=== PATIENT | male | born 1935 | race Caucasian/White ===

== ENCOUNTER 2016-03-07 19:53 | Inpatient (IN) | payer OTHER, BC ==
--- NOTE | 2016-03-07 19:59 | EDPHY ---
H & P HPI/ROS: HPI CHIEF COMPLAINT: Fatigue, chills, generalized weakness, cough HISTORY OF PRESENT ILLNESS: this patient very pleasant 81-year-old male, he lives in [place] however is visiting for the holiday season, he fluid TIA on March 01 and at that time he started developing chills. He noticed over the past 4-5 days he has had some increasing fatigue, shortness of breath, nonproductive cough, chills and fever to 100.1 at home. He endorsed 1 episode of nausea vomiting, denies diarrhea, denies chest pain, denies abdominal pain. His main complaint is fatigue, muscle aches, joint pain, shortness of breath and cough. He is concerned he may have pneumonia or influenza. Past Medical History: Denies any significant medical history Past Surgical History: cholecystectomy, right knee replacement Social History: remote history of smoking 20 years ago, denies drugs, alcohol, current tobacco products Family History: noncontributory ROS REVIEW OF SYSTEMS: A comprehensive 10 point review of systems is otherwise negative aside from elements mentioned in the history of present illness. Exam Constitutional triage nursing summary reviewed, vital signs reviewed, awake/ alert. ( tachycardia, hypoxia 89%) Eyes normal conjunctivae and sclera, EOMI, PERRLA. HENT normal inspection, atraumatic, moist mucus membranes, no epistaxis, neck supple/ no meningismus, no raccoon eyes. Respiratory clear to auscultation bilaterally, normal breath sounds, no respiratory distress, no wheezing. Cardiovascular rate normal, regular rhythm, no murmur, no edema, distal pulses normal. Gastrointestinal soft, non-tender, no rebound, no guarding, normal bowel sounds, no distension, no pulsatile mass. Genitourinary no CVA tenderness. Musculoskeletal no midline vertebral tenderness, full range of motion, no calf swelling, no tenderness of extremities, no meningismus, good pulses, neurovascularly intact. Skin pink, warm, & dry, no rash, skin atraumatic. Neurologic awake, alert and oriented x 3, AAOx3, moves all 4 extremities equally, motor intact, sensory intact, CN II-XII intact, normal cerebellar, normal vision, normal speech. Psychiatric normal mood/affect. Heme/Lymph/Immune no lymphadenopathy. Differential Diagnosis: includes but is not limited to in a particular order, URI, viral syndrome, pneumonia, influenza, dehydration, electrolyte abnormality Medical Decision Making: this patient had an IV established obtain blood work, patient will have IV fluid bolus 1 L, he will have an x-ray two view to evaluate for pneumonia. It is notice at triage she had a pulse ox room air saturation of 89%, heart rate 115. Afebrile. Re-evaluation: EKG interpretation by me on record in [employer] system. Impression Time of EKG 2126, sinus tachycardia rate of [address] elevation, ST depression, T-wave abnormalities are prolonged intervals or arrhythmia. ED x-ray chest two view: this shows a left lower lobe pneumonia infiltrate. 2234: I re-evaluated this patient is resting comfortably. he was hypoxic when he arrived here. I have ordered blood cultures. On supplemental oxygen 2 L. I have ordered him IV Rocephin 1 g, IV azithromycin. He will be admitted to the hospital for community-acquired pneumonia and hypoxia, generalized weakness. 2244: I have consulted the hospitalist service and admitted this patient to Dr. thompson. He is hemodynamically stable at this time. Blood cultures have been ordered. He has been ordered IV Rocephin and IV azithromycin for left lower lobe community-acquired pneumonia. Patient agrees for admission the hospital. Source: Patient Constitutional: Initial Vital Signs Temperature (C) 37.9 C 03/07/16 19:59 Heart Rate 115 H 03/07/16 19:59 Respiratory Rate 18 03/07/16 19:59 Blood Pressure 112/86 H 03/07/16 19:59 O2 Sat (%) 89 L 03/07/16 19:59 O2 Delivery Mode Room Air Allergies/Adverse Reactions: morphine Allergy (Verified 03/07/16 20:06) Home Medications: Medication Instructions Recorded Aspirin [Aspirin 81mg (*)] 81 mg PO HS 03/07/16 Naproxen Na-Diphenhydramin HCl 1 each PO HS 03/07/16 [Aleve Pm Caplet] Medical Decision Making - Data Points Laboratory Results: Laboratory Results 03/07/16 20:20 03/07/16 20:20 03/07/16 20:20 WBC 8.58 10^3/uL (3.80-9.50) RBC 3.90 L 10^6/uL (4.40-6.38) Hgb 12.3 L g/dL (13.7-17.5) Hct 36.7 L % (40.0-51.0) MCV 94.1 fL (81.5-99.8) MCH 31.5 pg (27.9-34.1) MCHC 33.5 g/dL (32.4-36.7) RDW 13.0 % (11.5-15.2) Plt Count 149 L 10^3/uL (150-400) MPV 9.2 fL (8.7-11.7) Neut % (Auto) 92.2 H % (39.3-74.2) Lymph % (Auto) 4.4 L % (15.0-45.0) Carson % (Auto) 1.9 L % (4.5-13.0) Eos % (Auto) 0.5 L % (0.6-7.6) Baso % (Auto) 0.5 % (0.3-1.7) Nucleat RBC Rel Count 0.0 % (0.0-0.2) Absolute Neuts (auto) 7.92 H 10^3/uL (1.70-6.50) Absolute Lymphs (auto) 0.38 L 10^3/uL (1.00-3.00) Absolute Monos (auto) 0.16 L 10^3/uL (0.30-0.80) Absolute Eos (auto) 0.04 10^3/uL (0.03-0.40) Absolute Basos (auto) 0.04 10^3/uL (0.02-0.10) Absolute Nucleated RBC 0.00 10^3/uL (0-0.01) Immature Gran % 0.5 % (0.0-1.1) Immature Gran # 0.04 10^3/uL (0.00-0.10) Sodium 138 mEq/L (134-144) Potassium 3.9 mEq/L (3.5-5.2) Chloride 105 mEq/L (97-110) Carbon Dioxide 21 L mEq/l (22-31) Anion Gap 12 mEq/L (8-16) BUN 42 H mg/dL (7-23) Creatinine 1.6 H mg/dL (0.7-1.3) Estimated GFR 42 Glucose 118 H mg/dL (70-100) Calcium 8.3 L mg/dL (8.5-10.4) Total Bilirubin 1.1 mg/dL (0.1-1.4) Conjugated Bilirubin 0.5 mg/dL (0.0-0.5) Unconjugated Bilirubin 0.6 mg/dL (0.0-1.1) AST 56 IU/L (17-59) ALT 98 H IU/L (21-72) Alkaline Phosphatase 108 IU/L (38-126) Troponin I < 0.012 ng/mL (0-0.034) NT-Pro-B Natriuret Pep 1390 H pg/mL (0-450) Total Protein 6.6 g/dL (6.3-8.2) Albumin 3.3 L g/dL (3.5-5.0) Lipase 70.0 IU/L (23-300) Influenza Typ A,B (DFA) NEGATIVE FOR FLU (NEGATIVE) Medications Given: Discontinued Medications Sodium Chloride (Ns) 1,000 mls @ 0 mls/hr IV ONCE ONE PRN Reason: As Directed Stop: 03/07/16 20:18 Last Admin: 03/07/16 20:20 Dose: 1,000 mls Sodium Chloride (Ns) 1,000 mls @ 0 mls/hr IV ONCE ONE PRN Reason: Wide Open Stop: 03/07/16 21:23 Last Admin: 03/07/16 21:32 Dose: 1,000 mls Departure - Departure Disposition: [facility] Inpatient Acute Clinical Impression: Hypoxia Pneumonia Qualifiers: Pneumonia type: due to unspecified organism Laterality: left Lung location: lower lobe of lung Qualifier Code: (J18.1) Lobar pneumonia, unspecified organism Condition: Fair Referrals: OUT OF STATE,. [Primary Care Provider] - As per Instructions
[2016-03-07] MEDS ORDERED: NS 1,000 ML IV ONE ×2 (20:17→21:22)
[2016-03-07 20:30] LABS: % IMMATURE GRANULYOCYTES 0.5 % (0.0-1.1); ABSOLUTE IMMATURE GRANULOCYTES 0.04 10^3/uL (0.00-0.10); ADD DIFF? NO; ADD MORPH? NO; ADD SCAN? NO; ATYPICAL LYMPHOCYTE FLAG 0 (0-99); FRAGMENT RBC FLAG 0 (0-99); HEMATOCRIT 36.7 % (40.0-51.0); HEMOGLOBIN 12.3 g/dL (13.7-17.5); LEFT SHIFT FLG 60 (0-99); LIPEMIA HEMOLYSIS FLAG 80 (0-99); MEAN CELL HEMOGLOBIN 31.5 pg (27.9-34.1); MEAN CELL HEMOGLOBIN CONCENTR. 33.5 g/dL (32.4-36.7); MEAN CELL VOLUME 94.1 fL (81.5-99.8); MEAN PLATELET VOLUME 9.2 fL (8.7-11.7); PLATELET CLUMPS FLAG 10 (0-99); PLATELET COUNT 149 10^3/uL (150-400)
[2016-03-07 20:51] LABS: ANION GAP 12 mEq/L (8-16); CALCIUM 8.3 mg/dL (8.5-10.4); CARBON DIOXIDE 21 mEq/l (22-31); CHLORIDE 105 mEq/L (97-110); CREATININE 1.6 mg/dL (0.7-1.3); GLOMERULAR FILTRATION RATE 42; GLUCOSE 118 mg/dL (70-100); POTASSIUM 3.9 mEq/L (3.5-5.2); SODIUM 138 mEq/L (134-144)
[2016-03-07 21:03] LABS: TROPONIN I < 0.012 ng/mL (0-0.034)
--- NOTE | 2016-03-07 21:29 | CPEKG ---
Heart Rate: 100 RR Interval: 600 P-R Interval: 156 QRSD Interval: 104 QT Interval: 344 QTC Interval: 444 P [place]: 52 QRS [place]: 57 T Wave [place]: 3 EKG Severity - OTHERWISE NORMAL ECG - EKG Impression: SINUS TACHYCARDIA Electronically Signed By: Juan Zavala 07-Mar-2016 23:33:26
[2016-03-07 21:59] LABS: ALBUMIN 3.3 g/dL (3.5-5.0); BILIRUBIN,TOTAL 1.1 mg/dL (0.1-1.4); BILIRUBIN-CONJUGATED 0.5 mg/dL (0.0-0.5); BILIRUBIN-UNCONJUGATED 0.6 mg/dL (0.0-1.1); TOTAL PROTEIN 6.6 g/dL (6.3-8.2)
[2016-03-07] MEDS ORDERED: AZITHROMYCIN IV 500 MG in D5W 250 ML IV ONE (22:34)
[2016-03-07] MEDS ORDERED: ONDANSETRON DISINTEGRATING 4 MG TAB PO PRN (23:33)
[2016-03-07] MEDS ORDERED: TEMAZEPAM 15 MG CAP PO PRN (23:33)
[2016-03-08] MEDS ORDERED: NAPROXEN SODIUM 220 MG TAB PO SCH (00:30)
[2016-03-08] MEDS: ACETAMINOPHEN 325 MG TAB PO PRN ×2 (00:38→20:20)
[2016-03-08] MEDS: NS 1,000 ML IV SCH ×2 (00:38→17:44)
[2016-03-08 00:47] LABS: COLOR YELLOW; LEUKOCYTE ESTERASE,URINE NEGATIVE (NEGATIVE); NITRITE,URINE NEGATIVE (NEGATIVE)
[2016-03-08 00:48] LABS: ANION GAP 11 mEq/L (8-16); CALCIUM 7.7 mg/dL (8.5-10.4); CARBON DIOXIDE 21 mEq/l (22-31); CHLORIDE 109 mEq/L (97-110); CREATININE 1.5 mg/dL (0.7-1.3); GLOMERULAR FILTRATION RATE 45; GLUCOSE 87 mg/dL (70-100); POTASSIUM 3.4 mEq/L (3.5-5.2); SODIUM 141 mEq/L (134-144)
[2016-03-08 00:51] LABS: BACTERIA TRACE /hpf (NONE SEEN); MUCUS TRACE /lpf (NONE-1+)
[2016-03-08] MEDS ORDERED: ENOXAPARIN 80 MG/0.8 ML SYR SC ONE (01:15)
--- NOTE | 2016-03-08 01:16 | GHP ---
[f rep st] HISTORY AND PHYSICAL DATE OF ADMISSION: 03/07/2016 CHIEF COMPLAINT: Fatigue. HISTORY OF PRESENT ILLNESS: This is a 81-year-old man who flew here from [place] 6 days ago, present s with about 6 days of fatigue. The day he got into [place], he started to feel poorly. This was as sociated with some fevers and chills. He denies any cough. He denies dysuria. No other real locali zing symptoms. In the ED, he was found to be hypoxic as well as tachycardic. He was treated for a p ossible left lower lobe pneumonia. PAST MEDICAL/SURGICAL HISTORY: Cholecystectomy. MEDICATIONS: Please see medication reconciliation. ALLERGIES: Morphine. FAMILY HISTORY: His son had blood clot. SOCIAL HISTORY: He occasionally drinks and smokes. He spends most of his time in [place]. REVIEW OF SYSTEMS: A 10-point review of systems is conducted and is negative except per HPI. PHYSICAL EXAMINATION: VITAL SIGNS: Blood pressure is 117/82. Heart rate when I am seeing him is ab out 110. Initially saturating at 89% on room air. Temperature is 37.9. GENERAL: The patient is a pleasant man who is comfortable, in no acute distress. HEENT: Shows pupils equal, round and reactiv e. Mucous membranes are moist. CARDIOVASCULAR: Regular rate and rhythm. No murmurs, rubs, or gall ops. PULMONARY: Lungs clear bilaterally. ABDOMEN: Soft, nontender, nondistended. SKIN: No rash. : Exam shows no Wesley. NEUROLOGIC: Shows him to be alert and oriented x3. He is moving all ex tremities. PSYCHIATRIC: Exam shows normal mood and affect. LABS: White count is 8.58. There is no bandemia. This are 92% neutrophils. Creatinine is 1.6, BUN is 42, ALT is 98, AST is normal. BNP is 1390. Influenza swab is negative. DATA: 1. I personally reviewed and interpreted his chest x-ray. This shows left lower lobe atelectasis ve rsus infiltrate. This is relatively minor. 2. EKG shows sinus tachycardia, S-wave in lead I, Q-wave in lead III, inverted T-wave in lead III. IMPRESSION AND PLAN: A 81-year-old man with fatigue, chills, and rigors, diagnosed with pneumonia in the emergency department. 1. Possible left lower lobe pneumonia: Not terribly impressive on chest x-ray. Symptoms not entire ly consistent with a pneumonia either. He has been empirically treated. I wonder with hypoxia, tach ycardia, recent plane flight, and family history of clot, as well as elevated BNP, could this be a cl ot? I will check a D-dimer and recheck his kidney function. Based on these, may consider CT angiogr am if D-dimer is elevated. Otherwise, for now, we will continue treatment for pneumonia. I have als o sent for urine studies, which have not been sent. 2. Acute kidney injury: Suspect that this is due to dehydration. He has received 2 L of fluid. I am rechecking now. 3. Anemia: Suspect that this is chronic, though we do not have any baseline. 4. Elevated alanine aminotransferase: We will recheck in the morning. 5. Code status: Full. 6. Venous thromboembolism risk: Moderate to high. We will empirically give him prophylactic Loveno x. /[id number]/MODL
--- NOTE | 2016-03-08 01:20 | HOSPPROG ---
Hospitalist Progress Note Assessment/Plan: labs reviewed: d-dimer 3.9, SCr 1.5 plan: - lovenox 80mg sc x 1 - continue IV hydration, hopefully SCr will fall further and obtain CTA thorax tomorrow - risks and benefits of empiric anticoagulation discussed with patient Objective: Vital Signs Temp Pulse Resp BP Pulse Ox 37.7 C 103 H 16 102/66 93 03/08/16 00:00 03/08/16 00:00 03/08/16 00:00 03/08/16 00:00 03/08/16 00:00 Laboratory Results 03/07/16 23:45 03/06/16 03/07/16 03/08/16 05:59 05:59 05:59 Intake Total 2049 Balance 2049 ICD10 Worksheet Patient Problems: Problems Problem Status Diagnosed Hypoxia Acute Pneumonia Acute
[2016-03-08] MEDS: ASPIRIN 81 MG CHEWABLE TAB PO SCH ×2 (01:36→20:13)
[2016-03-08] MEDS: diphenhydrAMINE 25 MG CAP PO SCH ×3 (01:36→20:21)
[2016-03-08 05:48] LABS: % IMMATURE GRANULYOCYTES 1.2 % (0.0-1.1); ABSOLUTE IMMATURE GRANULOCYTES 0.13 10^3/uL (0.00-0.10); ADD DIFF? NO; ADD MORPH? NO; ADD SCAN? YES; ATYPICAL LYMPHOCYTE FLAG 0 (0-99); FRAGMENT RBC FLAG 0 (0-99); HEMATOCRIT 33.1 % (40.0-51.0); HEMOGLOBIN 11.2 g/dL (13.7-17.5); LIPEMIA HEMOLYSIS FLAG 90 (0-99); MEAN CELL HEMOGLOBIN 31.2 pg (27.9-34.1); MEAN CELL HEMOGLOBIN CONCENTR. 33.8 g/dL (32.4-36.7); MEAN CELL VOLUME 92.2 fL (81.5-99.8); PLATELET CLUMPS FLAG 20 (0-99); PLATELET COUNT 118 10^3/uL (150-400); RED BLOOD CELL COUNT 3.59 10^6/uL (4.40-6.38)
[2016-03-08 05:53] LABS: LEFT SHIFT FLG 250 (0-99)
[2016-03-08 05:58] LABS: ALANINE AMINOTRANSFERASE 70 IU/L (21-72); ALBUMIN 2.5 g/dL (3.5-5.0); ALKALINE PHOSPHATASE 107 IU/L (38-126); ANION GAP 12 mEq/L (8-16); ASPARTATE AMINOTRANSFERASE 41 IU/L (17-59); BILIRUBIN,TOTAL 0.9 mg/dL (0.1-1.4); BILIRUBIN-CONJUGATED 0.6 mg/dL (0.0-0.5); BILIRUBIN-UNCONJUGATED 0.3 mg/dL (0.0-1.1); CALCIUM 7.3 mg/dL (8.5-10.4); CARBON DIOXIDE 20 mEq/l (22-31); CHLORIDE 108 mEq/L (97-110); CREATININE 1.5 mg/dL (0.7-1.3); GLOMERULAR FILTRATION RATE 45; GLUCOSE 80 mg/dL (70-100); POTASSIUM 3.7 mEq/L (3.5-5.2); SODIUM 140 mEq/L (134-144); TOTAL PROTEIN 5.1 g/dL (6.3-8.2)
[2016-03-08 06:22] LABS: SCAN POSITIVE
[2016-03-08 06:26] LABS: SCHISTOCYTES 1+
[2016-03-08 06:27] LABS: PLATELET ESTIMATE DECREASED (ADEQ)
[2016-03-08] MEDS: ENOXAPARIN 40 MG/0.4 ML SYR SC SCH (08:00)
--- NOTE | 2016-03-08 08:47 | DX ---
PA and Lateral Chest on March 07, 2016 Indication: Dyspnea. Findings: There is an early consolidation in the left lower lobe, associated with peribronchial thick ening. No effusion. The rest of the lungs are clear. Heart and mediastinum are within normal limits. Bones and soft tissues are normal. Impression: Left lower lobe pneumonia. Findings are discussed with Dr. Juan Zavala.
[2016-03-08] MEDS ORDERED: AZITHROMYCIN IV 500 MG in D5W 250 ML IV SCH (09:00)
--- NOTE | 2016-03-08 09:43 | HOSPPROG ---
Hospitalist Progress Note Assessment/Plan: 81 y/o male presenting with fatigue found to have # sepsis with gram negative bacteremia most likely source is a LLL pneumonia vs occult GI malig vs other -dc ctx and start cefepime to cover for pse -repeat blood cultures -ID consult # elevated d-dimer doubt PE given lack of chest pain/sob/and resolved tachycardia in the setting of sepsis -will dc therapeutic lmwh and defer further testing for PE # MILLA creat 1.5 today -cont fluids and monitor #Anemia without signs of GI bleeding or acute blood loss #elevated ALT (resolved) #diarrhea possibly secondary to antibiotics (acute) -cont to monitor -pt reports having a colonoscopy 3 years ago where he underwent polypectomy Subjective: overall feeling better today. no fever. no chest pain or sob. reports 2 episodes of diarrhea today which he attributes to antibiotics. Objective: Vital Signs Temp Pulse Resp BP Pulse Ox 36.8 C 92 22 H 101/58 L 96 03/08/16 08:00 03/08/16 08:00 03/08/16 08:00 03/08/16 08:00 03/08/16 08:00 Laboratory Results 03/08/16 04:44 03/08/16 04:44 03/07/16 03/08/16 03/09/16 05:59 05:59 05:59 Intake Total 3028 Output Total 200 Balance 2828 - Physical Exam Constitutional: no apparent distress, appears nourished, not in pain Cardiovascular: regular rate and rhythym, no murmur, rub, or gallop, No JVD, No tachycardia, No edema Respiratory: no respiratory distress, no rales or rhonchi, clear to auscultation , reduced air movement (bilat bases) Gastrointestinal: normoactive bowel sounds, soft, non-tender abdomen, no palpable masses, No guarding, No rebound Skin: no rashes or abrasions, no fluctuance, no induration Neurologic: AAOx3, CN II-XII Intact, No facial droop ICD10 Worksheet Patient Problems: Problems Problem Status Diagnosed Hypoxia Acute Pneumonia Acute
[2016-03-08] MEDS: CEFEPIME HCL 2 GM in D5W 100 ML IV SCH ×2 (11:41→20:13)
[2016-03-08] MEDS: CALCIUM CARBONATE 500 MG CHEWABLE TAB PO PRN (21:28)
--- NOTE | 2016-03-09 00:45 | GCON ---
[f rep st] CONSULTATION INFECTIOUS DISEASE CONSULTATION DATE OF CONSULTATION: 03/08/2016 REFERRING PHYSICIAN: Silas Low DO REASON FOR CONSULTATION: Gram-negative ayse sepsis for further evaluation and opinion. CHIEF COMPLAINT: Fevers and chills. HISTORY OF PRESENTING ILLNESS: This is a 81-year-old male with a past medical history sign ificant for cholecystitis, status post cholecystectomy, who lives mostly in [place] and [place], bu t flew here to [place] 1 week ago, Tuesday. He usually spends about 2-1/2 months here throughout the year as well. He came here last Tuesday. Just shortly after landing here, within the next 1 or 2 da , he started to have some chills, but it was very cold here, and he thought it maybe was related to that. By of this past week, he started to have shaking chills and fevers. He did have an occasional cough, but was not bringing up any phlegm and was not feeling short of breath. He came into the ED yesterday after ongoing chills. In the ED, he was found to have a temperature of 37.9. His heart rate was 115. His blood pressure was 112/86, and his respiratory rate was 18. He had blood cultures x2 sets that were drawn, and those have come back as 4/4 bottles of gram-negative rods. He had a chest x-ray done which showed perhaps an early left lower lobe pneumonia. A UA was d one which was pretty unremarkable. The patient denies any burning with burning or blood in the urine . He denies any flank pain as such. Occasionally, when he has coughed, he has had bilateral flank p ain, but he is not really coughing anymore. He denies an abdominal pain, nausea, vomiting. He curre ntly is having some diarrhea, but that just started today. It was definitely not present prior to , according to the patient. His appetite has been fine. He has denied any recent loss in weight. He has had intermittent night sweats over the last several months. Of note, his last colonoscopy was 3 years ago in [place]. He also ended up having an endoscopic ul trasound to evaluate a pancreatic nodule. He said it was biopsied and not found to be malignant. He used to have more issues with abdominal pain, but he says of late he has not really had abdominal pa in or back pain, and has been feeling well. He reports no other symptoms at present. REVIEW OF SYSTEMS: HEAD: Denies any headaches. EYES: No change in vision. ENT: No sore throat, difficulty swallowing, ear pain, or ear drainage. CARDIOVASCULAR: Denies any chest pain or rapid he artbeat. RESPIRATORY: Denies any shortness of breath or sputum production. Has had an occasional d ry cough. ABDOMEN: No nausea, vomiting, abdominal pain. Currently having some diarrhea. No back p ain. No flank pain. : No dysuria or hematuria. MUSCULOSKELETAL: Denies any joint pains or musc le aches. SKIN: Denies any rashes. ENDOCRINE: Has denied any weight loss. The rest of the 10-point review of systems is essentially negative except as above. PAST MEDICAL HISTORY: Significant for cholecystitis. PAST SURGICAL HISTORY: Significant for cholecystectomy and right knee total knee replacement. ALLERGIES: Morphine. SOCIAL HISTORY: He is a former smoker, quit 20 years ago. He drinks alcohol occasionally. He is re tired. He spends 5 months out of the year in [place], 2-1/2 months in [place], and the rest of the time in [place]. He has no pets. He has not traveled out of the country recently. FAMILY HISTORY: Significant for his son having a blood clot. MEDICATIONS: As per MAR. PHYSICAL EXAMINATION: VITAL SIGNS: Temperature current 36.6, pulse is 84, respiratory rate is 20, s aturation is 96% on room air, blood pressure is 92/57. GENERAL: He is sitting up in a chair in no a cute respiratory distress, awake, alert, and oriented x3. HEENT: Head is normocephalic, atraumatic. Pupils are equal. No conjunctival injection or petechiae noted. Oropharynx is clear. There is no posterior erythema or thrush. CARDIOVASCULAR: S1, S2, regular rate and rhythm. No murmurs appreci ated. RESPIRATORY: Mild coarse breath sounds at the left base. There is no cheri rhonchi or rales appreciated. ABDOMEN: Positive bowel sounds in all 4 quadrants. Soft, nontender, nondistended. No organomegaly appreciated. No rebound. No guarding. EXTREMITIES: No pain on palpation of the musc les or the joints. No obvious joint effusions. Right knee surgical scar noted, and well healed. No erythema or pain on palpation. SKIN: No other rashes or open wounds noted. LABS: White blood cell count is 10.9, hemoglobin 11.2, platelets are 118. Neutrophil count is 92%, segmented neutrophils 53%, bands of 34%. D-dimer 3.9. Sodium 140, potassium 3.7, chloride is 108, b icarb is 20, BUN is 33, creatinine is 1.5, AST 41, ALT 70, alkaline phos is 107, total bilirubin 0.9, albumin 2.5, lipase is 70. BNP is 1390. Troponin is less than 0.012. Urinalysis: 2+ blood, negat ricardo nitrites. Urine RBCs 1-3, urine WBCs 1-3, epithelial cells trace. Serologies: Influenza type A and B, negative. Blood cultures x2 sets, 4/4 bottles with gram-negative rods. Chest x-ray with mild early potential left lower lobe pneumonia. ASSESSMENT: 1. Gram-negative ayse sepsis with bacteremia, of unclear source. 2. Possible early left lower lobe pneumonia versus atelectasis. PLAN: Patient was admitted, started on ceftriaxone and azithromycin. Antibiotics have subsequently been changed to cefepime renally dosed. Will order followup blood cultures for a.m. Recommend CT of the abdomen and pelvis with IV contrast if creatinine improves. If creatinine does not improve much , then recommend at least a non-contrasted study to further evaluate potential sources. [facility] or [facility]. Occasionally can get a gram-negative ayse pneum onia. We are awaiting identification of the gram-negative ayse to further evaluate. Will continue wi th cefepime for now. Recheck labs in the a.m. Plan of care was discussed in detail with the patient and his family at the bedside. Care is coordinated with hospitalist team. I thank you very much for allowing this opportunity to ca re for your patient in consultation. /[id number]/MODL
[2016-03-09] MEDS: NS 1,000 ML IV SCH ×2 (01:24→10:00)
[2016-03-09 05:41] LABS: % IMMATURE GRANULYOCYTES 1.1 % (0.0-1.1); ABSOLUTE IMMATURE GRANULOCYTES 0.12 10^3/uL (0.00-0.10); ADD DIFF? NO; ADD MORPH? NO; ADD SCAN? NO; ATYPICAL LYMPHOCYTE FLAG 0 (0-99); FRAGMENT RBC FLAG 0 (0-99); HEMOGLOBIN 10.6 g/dL (13.7-17.5); LEFT SHIFT FLG 20 (0-99); LIPEMIA HEMOLYSIS FLAG 90 (0-99); MEAN CELL HEMOGLOBIN 31.5 pg (27.9-34.1); MEAN CELL HEMOGLOBIN CONCENTR. 34.2 g/dL (32.4-36.7); MEAN CELL VOLUME 92.3 fL (81.5-99.8); MEAN PLATELET VOLUME 9.9 fL (8.7-11.7); PLATELET CLUMPS FLAG 10 (0-99); PLATELET COUNT 117 10^3/uL (150-400); RED BLOOD CELL COUNT 3.36 10^6/uL (4.40-6.38); RED CELL DISTRIBUTION WIDTH 13.4 % (11.5-15.2)
[2016-03-09 06:10] LABS: ANION GAP 7 mEq/L (8-16); CALCIUM 7.5 mg/dL (8.5-10.4); CARBON DIOXIDE 21 mEq/l (22-31); CHLORIDE 113 mEq/L (97-110); CREATININE 1.4 mg/dL (0.7-1.3); GLOMERULAR FILTRATION RATE 49; GLUCOSE 84 mg/dL (70-100); POTASSIUM 3.4 mEq/L (3.5-5.2); SODIUM 141 mEq/L (134-144)
[2016-03-09] MEDS: ENOXAPARIN 40 MG/0.4 ML SYR SC SCH (10:00)
[2016-03-09] MEDS: CEFEPIME HCL 2 GM in D5W 100 ML IV SCH (10:00)
--- NOTE | 2016-03-09 10:43 | PCMIDPN ---
Assessment/Plan: Assessment/Plan: 1. GNR sepsis/bacteremia: - Unclear source. LIkely GI or related. - Creatinine slightly improved to 1.4. -Recommend Ct abd/pelvis with contrast once creatinine improves. -f/u blood cx drawn this AM--will follow -Currently on Cefepime. -Loose stools likely from antibiotics--monitor closely---if worsens consider c. diff eval. -Patient originally scheduled to return to [place] tomorrow. I discussed with him that he will need to get flight rescheduled. Subjective: Afebrile. Feeling better overall. Having loose stools past two days. denies abd pain, dysuria. Did state that noticed black spot in the toilet few weeks ago on two occasions after he urinated. He didn't think it was blood. He wasn't sure if it was clot/old blood. Objective: Vital Signs Temp Pulse Resp BP Pulse Ox 36.9 C 80 18 116/72 91 L 03/09/16 08:00 03/09/16 08:00 03/09/16 08:00 03/09/16 08:00 03/09/16 08:00 Laboratory Results 03/09/16 05:23 03/09/16 05:23 03/08/16 03/09/16 03/10/16 05:59 05:59 05:59 Intake Total 3992 Output Total 500 Balance 3492 - Physical Exam General Appearance: alert, no apparent distress Respiratory: lungs clear Cardiac/Chest: regular rate, rhythm Extremities: swelling (bilateral LE) Abdomen: normal bowel sounds, non-tender, soft, No distended Skin: other (eccymosis over left lower abdomen), No erythema ICD10 Worksheet Patient Problems: Problems Problem Status Diagnosed Hypoxia Acute Pneumonia Acute
--- NOTE | 2016-03-09 15:31 | HOSPPROG ---
Hospitalist Progress Note Assessment/Plan: 81 y/o male presenting with fatigue found to have # sepsis with ecoli bacteremia unclear source -will dc cefepime and resume ctx -I discussed the case with Dr. Meyer from [place] who agrees with above -plan for ct abd/pelvis tomorrow if creat is normalized # elevated d-dimer doubt PE given lack of chest pain/sob/and resolved tachycardia in the setting of sepsis -will dc therapeutic lmwh and defer further testing for PE # MILLA creat improving -cont fluids and monitor #Anemia without signs of GI bleeding or acute blood loss #elevated ALT (resolved) #diarrhea possibly secondary to antibiotics (acute) -cont to monitor -pt reports having a colonoscopy 3 years ago where he underwent polypectomy Subjective: overall feeling better today. no fevers or chills. no cough/chest pain/sob Objective: Vital Signs Temp Pulse Resp BP Pulse Ox 36.7 C 86 18 118/82 H 95 03/09/16 15:21 03/09/16 15:21 03/09/16 15:21 03/09/16 15:21 03/09/16 15:21 Laboratory Results 03/09/16 05:23 03/09/16 05:23 03/08/16 03/09/16 03/10/16 05:59 05:59 05:59 Intake Total 3992 Output Total 500 Balance 3492 - Physical Exam Constitutional: no apparent distress, appears nourished, not in pain Cardiovascular: regular rate and rhythym, no murmur, rub, or gallop Respiratory: no respiratory distress, no rales or rhonchi, clear to auscultation Gastrointestinal: normoactive bowel sounds, soft, non-tender abdomen, no palpable masses Neurologic: AAOx3, sensation intact bilaterally ICD10 Worksheet Patient Problems: Problems Problem Status Diagnosed Hypoxia Acute Pneumonia Acute
[2016-03-09] MEDS: ASPIRIN 81 MG CHEWABLE TAB PO SCH (21:56)
[2016-03-09] MEDS: diphenhydrAMINE 25 MG CAP PO SCH (21:56)
[2016-03-09] MEDS: CALCIUM CARBONATE 500 MG CHEWABLE TAB PO PRN (23:00)
[2016-03-10] MEDS: NS 1,000 ML IV SCH (03:03)
[2016-03-10 05:43] LABS: % IMMATURE GRANULYOCYTES 1.7 % (0.0-1.1); ABSOLUTE IMMATURE GRANULOCYTES 0.17 10^3/uL (0.00-0.10); ADD DIFF? NO; ADD MORPH? NO; ADD SCAN? NO; ATYPICAL LYMPHOCYTE FLAG 50 (0-99); FRAGMENT RBC FLAG 0 (0-99); HEMOGLOBIN 10.5 g/dL (13.7-17.5); LEFT SHIFT FLG 40 (0-99); LIPEMIA HEMOLYSIS FLAG 90 (0-99); MEAN CELL HEMOGLOBIN 31.7 pg (27.9-34.1); MEAN CELL HEMOGLOBIN CONCENTR. 33.9 g/dL (32.4-36.7); MEAN CELL VOLUME 93.7 fL (81.5-99.8); MEAN PLATELET VOLUME 10.4 fL (8.7-11.7); PLATELET CLUMPS FLAG 0 (0-99); PLATELET COUNT 143 10^3/uL (150-400); RED BLOOD CELL COUNT 3.31 10^6/uL (4.40-6.38); RED CELL DISTRIBUTION WIDTH 13.3 % (11.5-15.2)
[2016-03-10 06:19] LABS: ANION GAP 9 mEq/L (8-16); CALCIUM 7.6 mg/dL (8.5-10.4); CARBON DIOXIDE 19 mEq/l (22-31); CHLORIDE 116 mEq/L (97-110); CREATININE 1.3 mg/dL (0.7-1.3); GLOMERULAR FILTRATION RATE 53; GLUCOSE 77 mg/dL (70-100); POTASSIUM 3.6 mEq/L (3.5-5.2); SODIUM 144 mEq/L (134-144)
--- NOTE | 2016-03-10 08:26 | HOSPPROG ---
Hospitalist Progress Note Assessment/Plan: 81 y/o male presenting with fatigue. today is my 1st encounter with the patient. Chart reviewed. # sepsis with ecoli bacteremia unclear source - Initially on cefepime / now on ceftriaxone - plan for ct abd/pelvis / creatinine has improved, patient has no abdominal pain - spoke with Dr. Silverman earlier today /will hold on the CT of the abdomen and pelvis until a further evaluates # elevated d-dimer doubt PE given lack of chest pain/sob/and resolved tachycardia in the setting of sepsis # MILLA creat improving -cont fluids and monitor - creatinine is 1.3 today #Anemia without signs of GI bleeding or acute blood loss #elevated ALT (resolved) #diarrhea possibly secondary to antibiotics (acute) - this was noted by the provider yesterday, has no complaints of this # DVT prophylaxis. On low-molecular weight heparin if creatinine should increase will change to heparin subQ three times daily Subjective: Darren is feeling well/ anxious to be dc. Objective: Vital Signs Temp Pulse Resp BP Pulse Ox 36.9 C 72 14 132/67 H 94 03/10/16 08:00 03/10/16 08:00 03/10/16 08:00 03/10/16 08:00 03/10/16 08:00 Laboratory Results 03/10/16 04:34 03/10/16 04:34 03/09/16 03/10/16 03/11/16 05:59 05:59 05:59 Intake Total 3992 2576 Output Total 500 Balance 3492 2576 - Physical Exam Constitutional: no apparent distress, appears nourished, not in pain Eyes: PERRL Ears, Nose, Mouth, Throat: hearing normal Cardiovascular: regular rate and rhythym, no murmur, rub, or gallop Respiratory: no respiratory distress, no rales or rhonchi Gastrointestinal: normoactive bowel sounds, soft, non-tender abdomen Skin: warm, normal color Musculoskeletal: full muscle strength, normal joint ROM Neurologic: AAOx3 Psychiatric: interacting appropriately ICD10 Worksheet Patient Problems: Problems Problem Status Diagnosed Hypoxia Acute Pneumonia Acute
[2016-03-10] MEDS: ENOXAPARIN 40 MG/0.4 ML SYR SC SCH (09:03)
--- NOTE | 2016-03-10 16:23 | PCMIDPN ---
Assessment/Plan: Assessment: E coli bacteremia-unclear source. Obtained a right upper quadrant ultrasound to re-evaluate biliary tree given no clear source of infection. Right upper quadrant ultrasound showed dilatation of biliary tree as well as hepatic ducts. Will check an MRI or MRCP of the area to evaluate for obstruction. Continue ceftriaxone. Plan: 1. Continue empiric ceftriaxone. 2. Follow clinical course. Subjective: Patient is sitting up in his hospital room. He denies any new complaints. Feels much improved from admission. Is wanting to go home. No fevers or chills. Objective: Ceftriaxone #2 Vital Signs Temp Pulse Resp BP Pulse Ox 37.0 C 83 16 130/80 H 93 03/10/16 11:51 03/10/16 11:51 03/10/16 11:51 03/10/16 11:51 03/10/16 11:51 Laboratory Results 03/10/16 04:34 03/10/16 04:34 03/09/16 03/10/16 03/11/16 05:59 05:59 05:59 Intake Total 3992 2576 Output Total 500 Balance 3492 2576 - Physical Exam General Appearance: WD/WN, alert, no apparent distress, non-toxic Respiratory: lungs clear, normal breath sounds, No respiratory distress Cardiac/Chest: regular rate, rhythm, No tachycardia Extremities: non-tender, normal inspection Skin: normal color, warm/dry, No rash Neuro/Psych: alert, normal mood/affect, oriented x 3 ICD10 Worksheet Patient Problems: Problems Problem Status Diagnosed Hypoxia Acute Pneumonia Acute
--- NOTE | 2016-03-10 17:24 | US ---
Sonogram of the Abdomen - March 10, 2016 at 1521 hours Clinical Indications: Escherichia coli bacteremia. Evaluate for source. Findings: The visualized pancreas is unremarkable. PICC Atek duct is prominent/enlarged at 5 mm. The common bile duct is significantly enlarged at 16 mm. There is intra- and extrahepatic biliary ductal dilatation. In the distal common bile duct near the pancreatic head, there is an area of sludge versu s stone. The density has more of the appearance of sludge than stone. The portal veins are patent. He patic veins are patent. Scattered cysts are present in the liver. On the left, there is a cyst measur ing 1.0 x 0.8 x 0.95 cm. There is a second 1.4 x 1.0 x 1.3 cm cyst. On the right, there is a 1.0 x 0. 8 x 1.0 cm cyst. The gallbladder has been removed. The right kidney measures 5.0 x 4.9 x 11.1 cm with a 1.3-cm cortex. A pelvic cyst is noted measuring 1.1 x 0.6 x 0.9 cm. Impression: Intra- and extrahepatic biliary ductal dilatation and common bile duct dilation with yazan iary sludge or stones. Consider M.R.C.P. for further evaluation. A mass is not completely excluded, n or is an obstructing stone or debris. Critical results discussed by Dr. Ted Thakur with Dr. Pete Silverman on March 10, 2016 at [address]
[2016-03-10] MEDS: CALCIUM CARBONATE 500 MG CHEWABLE TAB PO PRN (18:03)
[2016-03-10] MEDS: PANTOPRAZOLE SODIUM 40 MG TAB PO SCH ×2 (18:07→22:10)
[2016-03-10] MEDS: diphenhydrAMINE 25 MG CAP PO SCH (22:10)
[2016-03-11 06:04] LABS: % IMMATURE GRANULYOCYTES 2.9 % (0.0-1.1); ABSOLUTE IMMATURE GRANULOCYTES 0.24 10^3/uL (0.00-0.10); ADD DIFF? NO; ADD MORPH? NO; ADD SCAN? NO; ATYPICAL LYMPHOCYTE FLAG 80 (0-99); FRAGMENT RBC FLAG 0 (0-99); HEMOGLOBIN 9.7 g/dL (13.7-17.5); LEFT SHIFT FLG 30 (0-99); LIPEMIA HEMOLYSIS FLAG 80 (0-99); MEAN CELL HEMOGLOBIN 31.2 pg (27.9-34.1); MEAN CELL HEMOGLOBIN CONCENTR. 33.4 g/dL (32.4-36.7); MEAN CELL VOLUME 93.2 fL (81.5-99.8); MEAN PLATELET VOLUME 10.3 fL (8.7-11.7); PLATELET CLUMPS FLAG 0 (0-99); PLATELET COUNT 159 10^3/uL (150-400); RED BLOOD CELL COUNT 3.11 10^6/uL (4.40-6.38); RED CELL DISTRIBUTION WIDTH 13.6 % (11.5-15.2)
[2016-03-11 06:37] LABS: ANION GAP 10 mEq/L (8-16); CALCIUM 8.1 mg/dL (8.5-10.4); CARBON DIOXIDE 20 mEq/l (22-31); CHLORIDE 116 mEq/L (97-110); CREATININE 1.2 mg/dL (0.7-1.3); GLOMERULAR FILTRATION RATE 58; GLUCOSE 80 mg/dL (70-100); POTASSIUM 3.8 mEq/L (3.5-5.2); SODIUM 146 mEq/L (134-144)
[2016-03-11] MEDS: ENOXAPARIN 40 MG/0.4 ML SYR SC SCH (09:00)
[2016-03-11] MEDS: PANTOPRAZOLE SODIUM 40 MG TAB PO SCH ×2 (10:07→22:13)
--- NOTE | 2016-03-11 11:13 | HOSPPROG ---
Hospitalist Progress Note Assessment/Plan: 81 y/o male presenting with fatigue. # sepsis with ecoli bacteremia unclear source - ceftriaxone - RUQ ultrasound shows biliry ductal dilation, CBD w biliary sludge -ordered MRI for today for further evaluation # elevated d-dimer doubt PE given lack of chest pain/sob/and resolved tachycardia in the setting of sepsis -lower bilateral extremities with swelling -will get an ultrasound to further evaluate #Lower extremity swelling -per patient this has been ongoing -drives frequently for long periods/ will get ultrasound # MILLA creat improving - creatinine is 1.2 today #Anemia without signs of GI bleeding or acute blood loss -has + heme stool -stop asa for now -Erji's PCP is in [place]/ he needs to get f/u with a colonoscopy #GERD -takes tums frequently at home, added PPI bid #elevated ALT (resolved) #diarrhea possibly secondary to antibiotics (acute) - none further Plan: Will await imaging studies/ get ultrasound and MRI of abdomen Subjective: Darren is feeling well/ anxious to be discharged, but appreciative of care in the hospital. Objective: Vital Signs Temp Pulse Resp BP Pulse Ox 37 C 94 18 110/68 91 L 03/11/16 08:00 03/11/16 08:00 03/11/16 08:00 03/11/16 08:00 03/11/16 08:00 Laboratory Results 03/11/16 05:05 03/11/16 05:05 03/10/16 03/11/16 03/12/16 05:59 05:59 05:59 Intake Total 2576 Balance 2576 - Physical Exam Constitutional: no apparent distress, appears nourished, not in pain Eyes: PERRL Ears, Nose, Mouth, Throat: hearing normal Cardiovascular: regular rate and rhythym, edema (bilateral lower extremity) Respiratory: no respiratory distress Gastrointestinal: normoactive bowel sounds Skin: warm Musculoskeletal: full muscle strength, no muscle tenderness Neurologic: AAOx3 Psychiatric: interacting appropriately, not anxious ICD10 Worksheet Patient Problems: Problems Problem Status Diagnosed Hypoxia Acute Pneumonia Acute
--- NOTE | 2016-03-11 12:55 | DX ---
Orbits, 3 views. March 11, 2016 History: Pre-MRI clearance. Findings: No retained foreign object identified over the orbits bilaterally. Paranasal sinuses are normally aerated. Impression: Patient is clear for MRI.
--- NOTE | 2016-03-11 14:58 | MR ---
MRI Abdomen Without Contrast, MR Cholangiopancreatography 1309 hours Clinical Indications: Abdominal pain. Ascending cholangitis. Abnormal ultrasound. Comparison: Ultrasound 10 March 2016. Technique: MRI is performed of the abdomen using a 3 Indira MRI system. Axial and coronal noncontrast anatomic images were obtained of the abdomen without contrast with standard imaging sequences. Heavil y T2-weighted images were obtained axially and coronally through the biliary ducts. Three-dimensiona l and multiplanar reconstructions were manipulated by the radiologist and reviewed at the computer. Findings: Several hepatic cysts are seen in the liver. The largest is in the left lobe measuring 1.9 cm. Intrahepatic biliary ductal dilatation is seen more predominant on the left than the right. Gallb ladder is absent as patient is status post cholecystectomy. Parapelvic cysts are seen in both kidneys . No evidence for pancreatic mass or edema with this limited noncontrast evaluation. Spleen is unrema rkable. No significant abdominal lymphadenopathy. M.R.C.P. images demonstrate dilatation of the common bile duct. It is more predominant in the mid asp ect up to 18 mm. There is multiple choledochal stones or debris dependent in the posterior mid common bile duct and distal common bile duct, largest measuring 10 mm. Intrahepatic biliary ductal dilatati on is more predominant on the left. Pancreatic duct is enlarged at 5 mm. Impression: Multiple choledochal stones and/or debris within the common bile duct which is dilated, a s well as intrahepatic biliary ductal dilatation. Common pancreatic duct is also enlarged. No definit e obstructing mass or evidence for pancreatitis. Status post cholecystectomy.
--- NOTE | 2016-03-11 15:58 | PCMIDPN ---
Assessment/Plan: #Davis-S E coli bacteremia MRCP suggests multiple choledochal stones within the common bile ducts. 03/09 blood cx demonstrate clearance --continue ceftriaxone, can finish Rx with PO levofloxacin at ct --consulted GI, ERCP tomorrow #Melena - passed info to GI meds ceftriaxone 1gm IV daily, 03/07, #5 Subjective: no abdominal pain eating C/o melena visiting wants to get back to winter home in [place] Objective: Vital Signs Temp Pulse Resp BP Pulse Ox 36.9 C 58 L 16 98/65 L 92 03/11/16 11:28 03/11/16 11:28 03/11/16 11:28 03/11/16 11:28 03/11/16 11:28 Laboratory Results 03/11/16 05:05 03/11/16 05:05 03/10/16 03/11/16 03/12/16 05:59 05:59 05:59 Intake Total 2576 Balance 2576 - Physical Exam General Appearance: alert, no apparent distress, apparent distress EENT: No scleral icterus Respiratory: lungs clear, No accessory muscle use, No wheezing Neck: supple Cardiac/Chest: regular rate, rhythm, No systolic murmur Extremities: pedal edema Abdomen: normal bowel sounds, non-tender, soft, distended Pelvic Exam: No amado Skin: warm/dry, No diaphoresis, No rash Neuro/Psych: alert, normal mood/affect, oriented x 3 - Line/s PIV Lines: other (L forearm), No drainage, No erythema - Time Spent With Patient Time Spent with Patient: greater than 35 minutes (coordinatin of care with Leanne Wagner and Ivan Keller) Time Spent with Patient: Greater than 35 minutes spent on this patients care, greater than 50% of time spent counseling, educating, and coordinating care regarding the above mentioned plan. ICD10 Worksheet Patient Problems: Problems Problem Status Diagnosed Hypoxia Acute Pneumonia Acute
--- NOTE | 2016-03-11 19:25 | US ---
Bilateral Lower Extremity Venous Doppler Study Clinical Indications: Bilateral lower extremity swelling. Technique: High-frequency transducer was used for compression imaging and Doppler study of the deep v eins of both legs from the upper calves to the groins. Pulsed Doppler and color Doppler were utilized , along with various maneuvers to assess flow in the deep veins. Findings: Right Leg: The deep veins of the groin, thigh, knee, and upper calf are well displayed and normally c ompressible. Doppler flow patterns are unremarkable. There is no evidence of deep venous thrombosis . Calf swelling is present. Left Leg: The deep veins of the groin, thigh, knee, and upper calf are well displayed and normally co mpressible. Doppler flow patterns are unremarkable. There is no evidence of deep venous thrombosis. Swelling is present. There is normal compression of the greater saphenous veins without superficial thrombosis. Impression: Normal bilateral venous Doppler study. No sonographic evidence to explain the patient's c fdc swelling.
--- NOTE | 2016-03-11 20:42 | SOAPPROG ---
SOAP Progress Note Assessment/Plan: Assessment: Plan: 03/11/16 20:41 GI note See dictated consult. Will keep npo after midnight. Plans for EUS/ERCP tomorrow. Objective: Vital Signs Temp Pulse Resp BP Pulse Ox 36.9 C 58 L 16 98/65 L 92 03/11/16 11:28 03/11/16 11:28 03/11/16 11:28 03/11/16 11:28 03/11/16 11:28 Laboratory Results 03/11/16 05:05 03/11/16 05:05 03/10/16 03/11/16 03/12/16 05:59 05:59 05:59 Intake Total 2576 Balance 2576 ICD10 Worksheet Patient Problems: Problems Problem Status Diagnosed Hypoxia Acute Pneumonia Acute
--- NOTE | 2016-03-11 21:39 | GCON ---
[f rep st] CONSULTATION DATE OF CONSULTATION: 03/11/2016 CONSULTING PHYSICIANS: Drs. Maegan Tejada/Vladimir Wu. REASON FOR CONSULTATION: Abnormal imaging. CHIEF COMPLAINT: Fevers and chills. HISTORY OF PRESENT ILLNESS: The patient is a 81-year-old male with a past medical history of cholecystitis with cholecystectomy, who presented to [facility] with complaints of fevers and chills. He was found to have a gram-negative ayse sepsis with E. coli bacteremia. He had a significant workup for a source, including an ultrasound which showed a dilated common bile duct. He had a subsequent MRCP which did reveal choledocholithiasis as well as a dilated pancreatic duct. When he initially came in he was found to have a temperature of 37.9, as well as being tachycardic. He did state he had had a poor appetite. He has had mild pain in the mid epigastrium. He denies any alleviating or exacerbating factors to his pain. The patient thinks that he has a history of pancreatic polyp. He believes underwent an upper scope for removal of this polyp. I am being asked by Dr. Tejada to evaluate Darren in consultation for his choledocholithiasis/abnormal imaging. PAST MEDICAL HISTORY: Cholecystitis. PAST SURGICAL HISTORY: Cholecystectomy, and right knee placement. ALLERGIES: Morphine. MEDICATIONS: Aspirin 80 mg a day, naproxen. SOCIAL HISTORY: Stopped smoking 20 years ago. No significant alcohol use. FAMILY HISTORY: Son having a blood clot. REVIEW OF SYSTEMS: A 12-point comprehensive review of systems was asked. Pertinent positives and negatives per HPI. PHYSICAL EXAM: VITAL SIGNS: Blood pressure 98/65, temperature 36.9, pulse 58, respirations 16. GENERAL: Awake, alert, oriented x3, in no distress. HEENT: Anicteric sclerae. Moist mucosa. NECK: No JVD. CARDIOVASCULAR: Regular rate and rhythm. Positive S1, S2. No murmurs or gallops appreciated. LUNGS: Clear to auscultation bilaterally. No wheezes, rales, or rhonchi. ABDOMEN: Soft, nontender, nondistended. Positive bowel sounds. No guarding. No rebound. EXTREMITIES: No clubbing, cyanosis, edema. NEUROLOGIC: 2-12 grossly intact. PSYCH: Normal affect. SKIN: No rash. No icterus LYMPH: No lymphadenopathy. DATA: Blood work: WBC 8.36, hemoglobin 9.7, hematocrit 29.0, platelets 159. Sodium 146, potassium 3.8, carbon dioxide 20, chloride 116, BUN 25, creatinine 1.5. MRCP shows a dilated common bile duct with intrahepatic biliary dilation. Common bile duct had multiple stones, with the largest measuring 10 mm. The pancreatic duct is also dilated. ASSESSMENT/PLAN: 1. Abnormal imaging-with dilated common bile duct as well as pancreatic duct. He does have choledocholithiasis which is the suspected source of his bactermia.. 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 Due to this history, as well as having a dilated pancreatic duct, we need to be concerned that he could pancreatic pathology. At this time I recommend an endoscopic ultrasound to evaluate the area, as well as an ERCP for biliary decompression. The risks, benefits, and alternatives of the procedure were discussed in great detail with the patient. Risks of infection, bleeding, perforation, pancreatitis, and sedation were discussed. All questions answered. Informed consent was obtained. Thank you very much for this consultation. /[id number]/MODL MTDD
[2016-03-11] MEDS: diphenhydrAMINE 25 MG CAP PO SCH (22:12)
[2016-03-12 05:56] LABS: ADD DIFF? YES; ADD MORPH? NO; FRAGMENT RBC FLAG 0 (0-99); LEFT SHIFT FLG 40 (0-99); PLATELET CLUMPS FLAG 0 (0-99); RED BLOOD CELL COUNT 3.09 10^6/uL (4.40-6.38)
[2016-03-12 06:00] LABS: HEMATOCRIT 29.2 % (40.0-51.0); HEMOGLOBIN 9.9 g/dL (13.7-17.5); LIPEMIA HEMOLYSIS FLAG 90 (0-99); MEAN CELL HEMOGLOBIN CONCENTR. 33.9 g/dL (32.4-36.7); MEAN CELL VOLUME 94.5 fL (81.5-99.8); MEAN PLATELET VOLUME 10.4 fL (8.7-11.7); PLATELET COUNT 180 10^3/uL (150-400)
[2016-03-12 06:06] LABS: % IMMATURE GRANULYOCYTES 4.6 % (0.0-1.1); ABSOLUTE IMMATURE GRANULOCYTES 0.42 10^3/uL (0.00-0.10); ADD SCAN? NO; ATYPICAL LYMPHOCYTE FLAG 130 (0-99)
[2016-03-12 06:10] LABS: ANION GAP 9 mEq/L (8-16); CALCIUM 8.1 mg/dL (8.5-10.4); CARBON DIOXIDE 22 mEq/l (22-31); CHLORIDE 113 mEq/L (97-110); CREATININE 1.2 mg/dL (0.7-1.3); GLOMERULAR FILTRATION RATE 58; GLUCOSE 86 mg/dL (70-100); POTASSIUM 3.8 mEq/L (3.5-5.2); SODIUM 144 mEq/L (134-144)
[2016-03-12 06:28] LABS: PLATELET ESTIMATE ADEQUATE (ADEQ)
[2016-03-12] MEDS: ENOXAPARIN 40 MG/0.4 ML SYR SC SCH (10:39)
[2016-03-12] MEDS: PANTOPRAZOLE SODIUM 40 MG TAB PO SCH ×2 (10:42→19:39)
[2016-03-12] MEDS ORDERED: INDOMETHACIN 50 MG SUPP PR ONE (13:30)
[2016-03-12] MEDS ORDERED: levOFLOXACIN 500 MG/DEXTROSE 100 ML IV ONE (13:30)
[2016-03-12] MEDS ORDERED: GLUCAGON,HUMAN RECOMBINANT 1 MG VIAL ONE (13:54)
[2016-03-12] MEDS ORDERED: IOTHALAMATE MEG (CONRAY) 50 ML VIAL IV ONE (13:54)
[2016-03-12] MEDS ORDERED: PROPOFOL/EMULSION 500 MG/50 ML BOTTLE IV ONE (13:58)
--- NOTE | 2016-03-12 14:53 | HOSPPROG ---
Hospitalist Progress Note Assessment/Plan: 81 y/o male presenting with fatigue. Under my 1st encounter with the patient, chart reviewed. Discussed with Dr. Silverman infectious Disease. # sepsis with ecoli bacteremia -ERCP today - ceftriaxone - RUQ ultrasound shows biliry ductal dilation, CBD w biliary sludge # elevated d-dimer doubt PE given lack of chest pain/sob/and resolved tachycardia in the setting of sepsis -lower bilateral extremities with swelling -will get an ultrasound to further evaluate #Lower extremity swelling -per patient this has been ongoing -drives frequently for long periods/ ultrasound negative # MILLA creat improving - creatinine is 1.2 today #Anemia without signs of GI bleeding or acute blood loss -has + heme stool -stop asa for now -Reji's PCP is in [place]/ he needs to get f/u with a colonoscopy #GERD -takes tums frequently at home, added PPI bid #elevated ALT (resolved) #diarrhea possibly secondary to antibiotics (acute) - none further Plan: ERCP today Further treatment pending Subjective: Up in the chair. Feeling better today. Waiting procedure. No pain currently. Objective: Vital Signs Temp Pulse Resp BP Pulse Ox 36.9 C 67 16 130/82 H 91 L 03/12/16 07:34 03/12/16 07:34 03/12/16 07:34 03/12/16 07:34 03/12/16 07:34 Laboratory Results 03/12/16 04:41 03/12/16 04:41 - Physical Exam Constitutional: appears nourished, not in pain, obese Eyes: PERRL, anicteric sclera, EOMI Ears, Nose, Mouth, Throat: moist mucous membranes, hearing normal, ears appear normal Cardiovascular: regular rate and rhythym, edema, No JVD Respiratory: no respiratory distress, no rales or rhonchi, reduced air movement Gastrointestinal: tenderness, distension, No ascites Skin: warm, normal color, No erythema Musculoskeletal: full muscle strength, normal joint ROM, no joint effusions Neurologic: AAOx3 Psychiatric: interacting appropriately, not anxious, not encephalopathic, thought process linear ICD10 Worksheet Patient Problems: Problems Problem Status Diagnosed Hypoxia Acute Pneumonia Acute
[2016-03-12] MEDS ORDERED: SUGAMMADEX SODIUM 200 MG/2 ML VIAL IVP ONE (15:08)
--- NOTE | 2016-03-12 16:34 | DX ---
Fluoroscopy Greater Than an Hour Clinical Indication: ERCP. Fluoroscopy Time: 262.3 seconds. Dose: 69.8 mGy. Findings: 12 spot fluoroscopic images were obtained with an endoscope in place and a balloon and wir e in the common bile duct. Debris is noted in the common bile duct. On completion imaging, there is a stent in place. Please see Dr. Keller's report for full ERCP details. Impression: Fluoroscopy provided for ERCP. Completion imaging showing plastic common bile duct stents .
--- NOTE | 2016-03-12 17:41 | GPN ---
[f rep st] PROCEDURE NOTE DATE OF PROCEDURE: 03/12/2016 PROCEDURE: Esophagogastroduodenoscopy with biopsy, endoscopic ultrasound. INDICATION: The patient is a 81-year-old male, who presents with complaints of melena as well as abnormal imaging. On a recent CT scan, he had a dilated common bile duct with choledocholithiasis as well as a dilated pancreatic duct. He does have a prior history of "pancreatic polyp," where he underwent an endoscopic ultrasound. He presents for further evaluation. CONSENT: Risks, benefits, and alternatives of the procedure were discussed in great detail with the patient. Risks of infection, bleeding, perforation, sedation, and pancreatitis were discussed. All questions were answered and informed consent was obtained. MEDICATIONS: General anesthesia. Please see anesthesia record for details. ESTIMATED BLOOD LOSS: Insignificant. ESOPHAGOGASTRODUODENOSCOPY EXAMINATION: The Olympus upper endoscope was introduced into the mouth and advanced into the esophagus. The proximal, mid and distal esophagus was normal in appearance. The stomach was entered and closely examined, including retroflexed views of the angularis, cardia, and fundus. The patient was noted to have erythematous mucosa in the antrum and body of the stomach. Biopsies were taken. In the duodenal bulb and second part of the duodenum, there were mutliple white plaque-like lesions of 5mm-1cm. Biopsies were taken. No source of melena was noted. ENDOSCOPIC ULTRASOUND EXAMINATION: The Olympus linear echoendoscope was introduced into the mouth and advanced to the second portion of the duodenum. The pancreas was carefully examined from the uncinate process to the tail, where the spleen was seen. No mass lesion was seen. The pancreatic duct was dilated in the head to 4 mm. There were several dilated side branches as well as hyperechoic stranding in the body of the stomach. The common bile duct was seen and was dilated to 18mm. Multiple stones of 5mm- 1.5cm were seen in the common bile duct. No obvious liver lesions were seen. No periportal, peripancreatic, or celiac nodes were appreciated. IMPRESSION: 1. No mass lesion in the pancreas. The ampulla was normal in appearance. 2. Choledocholithiasis. RECOMMENDATIONS: 1. Proceed with ERCP. 2. Await biopsy results. /[id number]/MODL MTDD
--- NOTE | 2016-03-12 17:46 | GPN ---
[f rep st] PROCEDURE NOTE DATE OF PROCEDURE: 03/12/2016 PROCEDURE: Endoscopic retrograde cholangiopancreatography with biliary sphincterotomy, stone extraction, placement of 2 temporary stents. INDICATION: The patient is a 81-year-old male, who presents with choledocholithiasis. He presents for further evaluation and biliary decompression. CONSENT: Risks, benefits, and alternatives of the procedure were discussed in great detail with the patient. Risk of infection, bleeding, perforation, sedation, and pancreatitis were discussed. All questions answered. Informed consent obtained. MEDICATIONS: General anesthesia. Please see Anesthesia details. Levaquin 500 mg IV x1. Indomethacin rectal 100 mg x1. ESTIMATED BLOOD LOSS: Insignificant. ENDOSCOPIC RETROGRADE CHOLANGIOPANCREATOGRAPHY EXAM: The Olympus duodenoscope was placed in the mouth and advanced to the second portion of the duodenum. The ampulla was brought into view and was normal in appearance. Using a [employer] sphincterotome and a 0.035 inch wire, a wire was advanced in the common bile duct with ease. No pancreatic manipulation or injection was made. On limited cholangiogram, multiple stones were seen measuring from 4mm - 1.5 cm.. There were least 10-15 stones. A 1.5 cm sphincterotomy was performed and multiple balloon sweeps were made with a [employer] 12-15 mm balloon. There was significant extraction of debris and stones. 4 balloons were torn due to the hardness of the stones. Significant debris and stones were removed. Despite multiple sweeps, the duct could not be cleared and a 10-Welsh 7 cm stent and a 7-Welsh 7 cm stent was placed into the duct for biliary decompression. IMPRESSION: 1. Significant stone burden status post endoscopic retrograde cholangiopancreatography with removal of significant stones. 2. Recommend repeat procedure in 6 weeks with possible spy glass for lithotripsy RECOMMENDATIONS: 1. N.p.o. until tomorrow. 2. Antibiotics x 5 days. 3. Repeat ERCP in 6 weeks with Spyglass. /[id number]/MODL MTDD
[2016-03-12] MEDS: ACETAMINOPHEN 325 MG TAB PO PRN (18:00)
[2016-03-12] MEDS: HYDROmorphONE/DILAUDID 2 MG TAB PO PRN (19:39)
[2016-03-12] MEDS: diphenhydrAMINE 25 MG CAP PO SCH (19:40)
[2016-03-12] MEDS: HYDROmorphONE/DILAUDID 1 MG/ML SYR IVP PRN (21:51)
[2016-03-13] MEDS: HYDROmorphONE/DILAUDID 2 MG TAB PO PRN ×6 (00:05→23:04)
[2016-03-13 05:16] LABS: ABSOLUTE IMMATURE GRANULOCYTES 0.28 10^3/uL (0.00-0.10); ADD DIFF? NO; ADD MORPH? NO; ADD SCAN? NO; ATYPICAL LYMPHOCYTE FLAG 40 (0-99); FRAGMENT RBC FLAG 0 (0-99); HEMOGLOBIN 11.9 g/dL (13.7-17.5); LEFT SHIFT FLG 10 (0-99); LIPEMIA HEMOLYSIS FLAG 80 (0-99); MEAN CELL HEMOGLOBIN 31.2 pg (27.9-34.1); MEAN CELL HEMOGLOBIN CONCENTR. 33.1 g/dL (32.4-36.7); MEAN CELL VOLUME 94.5 fL (81.5-99.8); MEAN PLATELET VOLUME 9.9 fL (8.7-11.7); PLATELET CLUMPS FLAG 0 (0-99); PLATELET COUNT 222 10^3/uL (150-400); RED BLOOD CELL COUNT 3.81 10^6/uL (4.40-6.38)
[2016-03-13 05:36] LABS: ANION GAP 11 mEq/L (8-16); CALCIUM 7.9 mg/dL (8.5-10.4); CARBON DIOXIDE 24 mEq/l (22-31); CHLORIDE 109 mEq/L (97-110); CREATININE 1.2 mg/dL (0.7-1.3); GLOMERULAR FILTRATION RATE 58; GLUCOSE 151 mg/dL (70-100); POTASSIUM 4.3 mEq/L (3.5-5.2); SODIUM 144 mEq/L (134-144)
[2016-03-13] MEDS: CALCIUM CARBONATE 500 MG CHEWABLE TAB PO PRN (06:21)
[2016-03-13] MEDS: PANTOPRAZOLE SODIUM 40 MG TAB PO SCH ×3 (08:32→23:05)
[2016-03-13] MEDS: ENOXAPARIN 40 MG/0.4 ML SYR SC SCH (08:37)
[2016-03-13] MEDS: HYDROmorphONE/DILAUDID 1 MG/ML SYR IVP PRN ×4 (08:43→19:29)
--- NOTE | 2016-03-13 11:08 | PCMIDPN ---
Assessment/Plan: Assessment: E coli bacteremia-source likely the biliary tract as a high burden of common bile duct stones and debris were discovered and removed on ERCP. Still more to go -- will have repeat ERCP in approximately 6 weeks. Meanwhile will continue on ceftriaxone daily to treat the known bacteremia and cover the post-ERCP issues as well. Plan: 1. Continue intravenous ceftriaxone for a total of 14 days post culture clearance. 2. Follow clinical course. Subjective: Patient doing fairly well. No fevers. However having persistent colicky pain in the abdomen. Worse after eating or drinking. Objective: ceftriaxone #5 Vital Signs Temp Pulse Resp BP Pulse Ox 37.8 C 97 16 118/80 95 03/13/16 08:00 03/13/16 08:00 03/13/16 08:00 03/13/16 08:00 03/13/16 08:00 Laboratory Results 03/13/16 04:42 03/13/16 04:42 03/12/16 03/13/16 03/14/16 05:59 05:59 05:59 Intake Total 630 Output Total 2 Balance 628 - Physical Exam General Appearance: WD/WN, alert, apparent distress (mild abdominal pain) Respiratory: lungs clear, normal breath sounds, No respiratory distress Cardiac/Chest: regular rate, rhythm, No tachycardia Extremities: non-tender, normal inspection Abdomen: soft, No non-tender Skin: normal color, warm/dry, No rash Neuro/Psych: alert, normal mood/affect, oriented x 3 ICD10 Worksheet Patient Problems: Problems Problem Status Diagnosed Hypoxia Acute Pneumonia Acute
--- NOTE | 2016-03-13 13:05 | HOSPPROG ---
Hospitalist Progress Note Assessment/Plan: 81 y/o male presenting with fatigue. Discussed with Dr. Silverman infectious Disease. # sepsis with ecoli bacteremia -ERCP 03/12, stones removed. Needs repeat in 6 weeks. -some biliary colic - ceftriaxone total 14 days from clearance - reviewed with Dr Silverman # elevated d-dimer doubt PE given lack of chest pain/sob/and resolved tachycardia in the setting of sepsis -lower bilateral extremities with swelling -no clots #Lower extremity swelling -per patient this has been ongoing -drives frequently for long periods/ ultrasound negative # MILLA creat improving - creatinine is 1.2 today #Anemia without signs of GI bleeding or acute blood loss -has + heme stool -stop asa for now -Reji's PCP is in [place]/ he needs to get f/u with a colonoscopy #GERD -takes tums frequently at home, added PPI bid #elevated ALT (resolved) #diarrhea possibly secondary to antibiotics (acute) - none further Plan: cont supportive care Further treatment pending Subjective: Up in the chair. Having some abdominal pain. Worsens with eating. No other specific complaints. Objective: Vital Signs Temp Pulse Resp BP Pulse Ox 37.0 C 92 16 116/85 H 94 03/13/16 12:00 03/13/16 12:00 03/13/16 12:00 03/13/16 12:00 03/13/16 12:00 Laboratory Results 03/13/16 04:42 03/13/16 04:42 03/12/16 03/13/16 03/14/16 05:59 05:59 05:59 Intake Total 630 Output Total 2 Balance 628 - Physical Exam Constitutional: no apparent distress, appears nourished, uncomfortable Eyes: PERRL, anicteric sclera, EOMI Ears, Nose, Mouth, Throat: moist mucous membranes, hearing normal, ears appear normal Cardiovascular: No JVD, No edema Respiratory: no respiratory distress, no rales or rhonchi, reduced air movement Gastrointestinal: normoactive bowel sounds, tenderness, distension Skin: warm, normal color, No erythema Musculoskeletal: no joint effusions, muscular tenderness, generalized weakness Neurologic: AAOx3 Psychiatric: not anxious, not encephalopathic, poor insight ICD10 Worksheet Patient Problems: Problems Problem Status Diagnosed Hypoxia Acute Pneumonia Acute
--- NOTE | 2016-03-13 13:07 | SOAPPROG ---
SOAP Progress Note Assessment/Plan: Assessment: 1. Choledocholithiasis 2. Abdominal pain RUQ/RLQ 3. E.coli sepsis Plan: 1. Check lipase and LFTs today with increasing pain and worsening leukocytosis 2. Clears only 3. Continue antibiotics. 4. Will make NPO if labs reveal findings c/w post-ERC pancreatitis 5. AM labs also to include LFTs and lipase 03/13/16 13:03 Subjective: CC: RUQ pain today worsening since procedure. No fever. Abdominal Pain increases with movement or cough. Objective: Vital Signs Temp Pulse Resp BP Pulse Ox 37.0 C 92 16 116/85 H 94 03/13/16 12:00 03/13/16 12:00 03/13/16 12:00 03/13/16 12:00 03/13/16 12:00 Laboratory Results 03/13/16 04:42 03/13/16 04:42 03/12/16 03/13/16 03/14/16 05:59 05:59 05:59 Intake Total 630 Output Total 2 Balance 628 Physical Exam - Physical Exam General Appearance: no apparent distress EENT: normal ENT inspection, No scleral icterus (R), No scleral icterus (L) Neck: supple Respiratory: lungs clear, normal breath sounds Cardiac/Chest: regular rate, rhythm, No tachycardia Abdomen: other (Bruise at site of heparin injection. TTP RUQ and RLQ. No rebound or guarding.), No distended, No guarding, No rebound ICD10 Worksheet Patient Problems: Problems Problem Status Diagnosed Hypoxia Acute Pneumonia Acute
[2016-03-13 13:51] LABS: ALBUMIN 2.7 g/dL (3.5-5.0); BILIRUBIN,TOTAL 0.7 mg/dL (0.1-1.4); BILIRUBIN-CONJUGATED 0.3 mg/dL (0.0-0.5); BILIRUBIN-UNCONJUGATED 0.4 mg/dL (0.0-1.1); TOTAL PROTEIN 5.8 g/dL (6.3-8.2)
[2016-03-13] MEDS: diphenhydrAMINE 25 MG CAP PO SCH ×2 (21:00→23:04)
[2016-03-13] MEDS: ACETAMINOPHEN 325 MG TAB PO PRN (23:55)
[2016-03-14] MEDS: HYDROmorphONE/DILAUDID 2 MG TAB PO PRN ×3 (04:55→14:19)
[2016-03-14] MEDS: CALCIUM CARBONATE 500 MG CHEWABLE TAB PO PRN (04:55)
[2016-03-14 05:01] LABS: % IMMATURE GRANULYOCYTES 1.3 % (0.0-1.1); ADD DIFF? NO; ADD MORPH? NO; ADD SCAN? NO; ATYPICAL LYMPHOCYTE FLAG 30 (0-99); FRAGMENT RBC FLAG 0 (0-99); HEMATOCRIT 37.3 % (40.0-51.0); HEMOGLOBIN 12.4 g/dL (13.7-17.5); LEFT SHIFT FLG 30 (0-99); LIPEMIA HEMOLYSIS FLAG 80 (0-99); MEAN CELL HEMOGLOBIN 31.7 pg (27.9-34.1); MEAN CELL HEMOGLOBIN CONCENTR. 33.2 g/dL (32.4-36.7); MEAN CELL VOLUME 95.4 fL (81.5-99.8); MEAN PLATELET VOLUME 9.9 fL (8.7-11.7); PLATELET CLUMPS FLAG 10 (0-99); PLATELET COUNT 293 10^3/uL (150-400); RED BLOOD CELL COUNT 3.91 10^6/uL (4.40-6.38); RED CELL DISTRIBUTION WIDTH 14.3 % (11.5-15.2)
[2016-03-14 05:10] LABS: ANION GAP 10 mEq/L (8-16); CALCIUM 7.4 mg/dL (8.5-10.4); CARBON DIOXIDE 25 mEq/l (22-31); CHLORIDE 108 mEq/L (97-110); CREATININE 1.6 mg/dL (0.7-1.3); GLOMERULAR FILTRATION RATE 42; GLUCOSE 102 mg/dL (70-100); POTASSIUM 4.1 mEq/L (3.5-5.2); SODIUM 143 mEq/L (134-144)
[2016-03-14] MEDS: 1/2 NS 1,000 ML IV SCH ×2 (08:41→23:23)
[2016-03-14] MEDS: PANTOPRAZOLE SODIUM 40 MG TAB PO SCH (08:47)
[2016-03-14] MEDS: ENOXAPARIN 40 MG/0.4 ML SYR SC SCH (08:49)
[2016-03-14 08:55] LABS: ALBUMIN 2.6 g/dL (3.5-5.0); BILIRUBIN,TOTAL 0.9 mg/dL (0.1-1.4); BILIRUBIN-CONJUGATED 0.5 mg/dL (0.0-0.5); BILIRUBIN-UNCONJUGATED 0.4 mg/dL (0.0-1.1); TOTAL PROTEIN 5.6 g/dL (6.3-8.2)
--- NOTE | 2016-03-14 13:05 | HOSPPROG ---
Hospitalist Progress Note Assessment/Plan: 81 y/o male presenting with fatigue. Discussed with Dr. Silverman infectious Disease. # sepsis with ecoli bacteremia -ERCP 03/12, stones removed. Needs repeat in 6 weeks. -some biliary colic - ceftriaxone total 14 days from clearance - reviewed with Dr Silverman # elevated d-dimer doubt PE given lack of chest pain/sob/and resolved tachycardia in the setting of sepsis -lower bilateral extremities with swelling -no clots # pancreatitis Post ERCP Appears to be improving Monitor for possible ileus development Labs improved today #Lower extremity swelling -per patient this has been ongoing -drives frequently for long periods/ ultrasound negative # MILLA creat improving - creatinine is 1.6 today -restart IV hydration #Anemia without signs of GI bleeding or acute blood loss -has + heme stool -stop asa for now -Reji's PCP is in [place]/ he needs to get f/u with a colonoscopy #GERD -takes tums frequently at home, added PPI bid # leukocytosis Post ERCP Continue to follow closely #elevated ALT (resolved) #diarrhea possibly secondary to antibiotics (acute) - none further # weakness Significant per patient's report Encouraged out of bed and physical therapy Plan: cont supportive care Further treatment pending May need home health care versus senior living facility secondary to deconditioning Subjective: Complaints of mild abdominal pain. Also complains of belching. Feels weak and unable to get out of bed independently. Objective: Vital Signs Temp Pulse Resp BP Pulse Ox 37.3 C 92 16 125/75 H 90 L 03/14/16 11:18 03/14/16 11:18 03/14/16 11:18 03/14/16 11:18 03/14/16 11:18 Microbiology 03/09/16 05:23 Blood Culture - Final Blood 03/09/16 05:28 Blood Culture - Final Blood Laboratory Results 03/14/16 04:35 03/14/16 04:35 03/13/16 03/14/16 03/15/16 05:59 05:59 05:59 Intake Total 630 Output Total 2 Balance 628 - Physical Exam Constitutional: chronically ill appearing, obese, uncomfortable Eyes: PERRL, anicteric sclera, EOMI Ears, Nose, Mouth, Throat: moist mucous membranes, hearing normal, ears appear normal Cardiovascular: regular rate and rhythym, No JVD, No edema Respiratory: no respiratory distress, no rales or rhonchi, reduced air movement Gastrointestinal: tenderness, distension, No normoactive bowel sounds, No ascites Skin: warm, normal color, No erythema Musculoskeletal: no joint effusions, muscular tenderness, generalized weakness Neurologic: AAOx3 Psychiatric: interacting appropriately, not anxious, not encephalopathic ICD10 Worksheet Patient Problems: Problems Problem Status Diagnosed Hypoxia Acute Pneumonia Acute
--- NOTE | 2016-03-14 15:29 | SOAPPROG ---
SOAP Progress Note Assessment/Plan: Assessment: 1. Choledocholithiasis 2. Abdominal pain RUQ/RLQ 3. E.coli sepsis 4. Post-ERCP pancreatitis Plan: 1. Check lipase and LFTs tomorrow 2. NPO 3. Continue antibiotics. 4. Will try advancing diet once abdominal pain improved 5. Encourage ambulation today 6. Increase IV fluid hydration with acute pancreatitis 03/14/16 15:26 03/14/16 15:29 Subjective: CC: Abdominal pain-epigastric and RUQ Objective: Vital Signs Temp Pulse Resp BP Pulse Ox 37.3 C 92 16 125/75 H 90 L 03/14/16 11:18 03/14/16 11:18 03/14/16 11:18 03/14/16 11:18 03/14/16 11:18 Microbiology 03/09/16 05:23 Blood Culture - Final Blood 03/09/16 05:28 Blood Culture - Final Blood Laboratory Results 03/14/16 04:35 03/14/16 04:35 03/13/16 03/14/16 03/15/16 05:59 05:59 05:59 Intake Total 630 Output Total 2 Balance 628 Physical Exam - Physical Exam EENT: No scleral icterus (R), No scleral icterus (L) Neck: supple Respiratory: lungs clear Cardiac/Chest: regular rate, rhythm Abdomen: soft, distended, other (Hypoactive bowel sounds. Diffusely tender to palpation) ICD10 Worksheet Patient Problems: Problems Problem Status Diagnosed Hypoxia Acute Pneumonia Acute
--- NOTE | 2016-03-14 16:02 | PCMIDPN ---
Assessment/Plan: Assessment: E coli bacteremia-source likely the biliary tract as a high burden of common bile duct stones and debris were discovered and removed on ERCP. Still more to go -- will have repeat ERCP in approximately 6 weeks. Patient developed acute pancreatitis following the procedure. Still suffering from ramifications of this complication. Meanwhile will continue on ceftriaxone daily to treat the known bacteremia and cover the post-ERCP issues as well. Plan: 1. Continue intravenous ceftriaxone for a total of 14 days post culture clearance. 2. Follow clinical course. 03/14/16 16:00 Subjective: Patient has continued significant abdominal pain postprocedure. This corresponds with the increased lipase seen in blood reflecting pancreatitis. Borderline temperatures. Generally not feeling well. Objective: Ceftriaxone # 6 Vital Signs Temp Pulse Resp BP Pulse Ox 37.9 C 100 17 124/76 H 95 03/14/16 15:30 03/14/16 15:30 03/14/16 15:30 03/14/16 15:30 03/14/16 15:30 Microbiology 03/09/16 05:23 Blood Culture - Final Blood 03/09/16 05:28 Blood Culture - Final Blood Laboratory Results 03/14/16 04:35 03/14/16 04:35 03/13/16 03/14/16 03/15/16 05:59 05:59 05:59 Intake Total 630 Output Total 2 Balance 628 - Physical Exam General Appearance: WD/WN, alert, apparent distress (Mild distress secondary to upper quadrant abdominal pain.), non-toxic Respiratory: lungs clear, normal breath sounds, No respiratory distress Cardiac/Chest: regular rate, rhythm, No tachycardia Abdomen: soft, No non-tender Neuro/Psych: alert, normal mood/affect, oriented x 3 ICD10 Worksheet Patient Problems: Problems Problem Status Diagnosed Hypoxia Acute Pneumonia Acute
[2016-03-14] MEDS: ACETAMINOPHEN 650 MG/20.3 ML UDCUP PO PRN (21:20)
[2016-03-14] MEDS: diphenhydrAMINE 25 MG CAP PO SCH (22:41)
[2016-03-15 05:31] LABS: % IMMATURE GRANULYOCYTES 0.9 % (0.0-1.1); ABSOLUTE IMMATURE GRANULOCYTES 0.16 10^3/uL (0.00-0.10); ADD DIFF? NO; ADD MORPH? NO; ADD SCAN? NO; ATYPICAL LYMPHOCYTE FLAG 20 (0-99); FRAGMENT RBC FLAG 0 (0-99); HEMATOCRIT 34.1 % (40.0-51.0); HEMOGLOBIN 11.3 g/dL (13.7-17.5); LEFT SHIFT FLG 60 (0-99); LIPEMIA HEMOLYSIS FLAG 80 (0-99); MEAN CELL HEMOGLOBIN 31.9 pg (27.9-34.1); MEAN CELL HEMOGLOBIN CONCENTR. 33.1 g/dL (32.4-36.7); MEAN CELL VOLUME 96.3 fL (81.5-99.8); PLATELET CLUMPS FLAG 10 (0-99); PLATELET COUNT 316 10^3/uL (150-400); RED BLOOD CELL COUNT 3.54 10^6/uL (4.40-6.38); RED CELL DISTRIBUTION WIDTH 14.6 % (11.5-15.2)
[2016-03-15 05:56] LABS: ANION GAP 13 mEq/L (8-16); CALCIUM 7.2 mg/dL (8.5-10.4); CARBON DIOXIDE 21 mEq/l (22-31); CHLORIDE 109 mEq/L (97-110); CREATININE 1.6 mg/dL (0.7-1.3); GLOMERULAR FILTRATION RATE 42; GLUCOSE 93 mg/dL (70-100); POTASSIUM 4.2 mEq/L (3.5-5.2); SODIUM 143 mEq/L (134-144)
[2016-03-15] MEDS: 1/2 NS 1,000 ML IV SCH (07:29)
[2016-03-15] MEDS: CALCIUM CARBONATE 500 MG CHEWABLE TAB PO PRN (07:29)
[2016-03-15] MEDS: HYDROmorphONE/DILAUDID 2 MG TAB PO PRN ×2 (07:29→17:38)
--- NOTE | 2016-03-15 08:37 | HOSPPROG ---
Hospitalist Progress Note Assessment/Plan: 81 y/o male presenting with fatigue. Reviewed his care with Dr. Eugene/ will hold feeding for now. # sepsis with ecoli bacteremia -s/p ERCP 03/12, stones removed. Needs repeat in 6 weeks. -some biliary colic - ceftriaxone # choledocholithiasis - etiology of the bacteremia # post ERCP pancreatitis - continue IV hydration - will likely need a feeding tube in place if not eating soon # leukocytosis - white blood cell count trending up - post ERCP # elevated d-dimer doubt PE given lack of chest pain/sob/and resolved tachycardia in the setting of sepsis -lower bilateral extremities with swelling -no clots -will get an echo to evaluate right side of the heart # hypoxemia - suspect this is secondary to atelectasis /will get a chest x-ray #Lower extremity swelling -per patient this has been ongoing -drives frequently for long periods/ ultrasound negative -knee high najma hose # MILLA creat improving - creatinine is 1.6 - DC Lovenox and start heparin for DVT prophylaxis #Anemia without signs of GI bleeding or acute blood loss -has + heme stool -stop asa for now -Reji's PCP is in [place]/ he needs to get f/u with a colonoscopy #GERD -takes tums frequently at home, added PPI bid -ongoing #diarrhea possibly secondary to antibiotics - none further # weakness -PT and OT working with him Plan: abdominal xray, repeat labs, echo, najma hose Subjective: Reji is c/o ongoing abdominal pain/ reflux. Objective: Vital Signs Temp Pulse Resp BP Pulse Ox 37.2 C 97 18 134/77 H 90 L 03/15/16 07:19 03/15/16 07:19 03/15/16 07:19 03/15/16 07:19 03/15/16 07:19 Microbiology 03/09/16 05:23 Blood Culture - Final Blood 03/09/16 05:28 Blood Culture - Final Blood Laboratory Results 03/15/16 04:35 03/15/16 04:35 03/14/16 03/15/16 03/16/16 05:59 05:59 05:59 Intake Total 250 Balance 250 - Physical Exam Constitutional: chronically ill appearing, uncomfortable Eyes: PERRL Ears, Nose, Mouth, Throat: hearing normal Cardiovascular: regular rate and rhythym Respiratory: reduced air movement (bibasilar/poor respiratory effort) Gastrointestinal: tenderness (right lower quadrant), distension, No normoactive bowel sounds (hypoactive) Skin: warm Musculoskeletal: generalized weakness Neurologic: AAOx3 Psychiatric: interacting appropriately, depressed ICD10 Worksheet Patient Problems: Problems Problem Status Diagnosed Hypoxia Acute Pneumonia Acute
[2016-03-15] MEDS ORDERED: PANTOPRAZOLE SODIUM 40 MG in NS 100 ML IV SCH (09:00)
[2016-03-15] MEDS: ONDANSETRON 4 MG/2 ML VIAL IVP PRN ×2 (10:17→18:39)
--- NOTE | 2016-03-15 10:30 | DX ---
Abdomen, Single View March 15, 2016 Indication: Distended abdomen. Evaluate for adynamic ileus. Comparison: MRI of the abdomen, March 11, 2016. Findings: The lungs are hypoventilated with bibasilar atelectasis, worse right than left. Surgical cl ips are present in the right upper quadrant and a temporary biliary stent appears to extend from the liver hilum to the second portion of the duodenum. No discernible pneumoperitoneum. Numerous tiny gas bubbles are superimposed on the hepatic flexure in the right mid abdomen raising the possibility of pneumatosis. There is mild gaseous distention of the ascending colon, transverse colon and distal sma ll bowel. Left hemicolon is decompressed. Numerous surgical ligatures reside in the low pelvis. Impression: 1. Bibasilar atelectasis. 2. Mild adynamic ileus. 3. Equivocal pneumatosis of the hepatic flexure. No evidence of portal venous gas. Recommend follow up two-view abdomen in 4 hours. The case was discussed with Leanne Wagner NP at 10:20 a.m.
--- NOTE | 2016-03-15 12:35 | SOAPPROG ---
KELLIE Progress Note Assessment/Plan: Assessment: 1. Choledocholithiasis 2. Abdominal pain RUQ/RLQ 3. E.coli sepsis 4. Post-ERCP pancreatitis 5. Edema 6. Heartburn Plan: 1. Check CBC, lipase and LFTs tomorrow AM 2. Clears today 3. Follow up on repeat 2 way abdominal film and if still persistent pneumatosis (at the HF of colon or biliary pneumatosis) then will ask for non-contrasted CT abdomen (given his renal insufficiency) 4. Ok to stop IVF as he is a bit volume overloaded and clinically his abdominal pain has improved 5. His pain is most likey pancreatitis but now with pneumatosis query if there is another cause. May need CT 6. Continue antibiotics for biliary sepsis 7. Start IV PPI for GERD 8. Will follow 03/15/16 12:31 03/15/16 12:35 Subjective: CC: abdominal pain improved. Has heartburn today. Objective: Vital Signs Temp Pulse Resp BP Pulse Ox 37.4 C 89 18 124/72 H 97 03/15/16 11:51 03/15/16 11:51 03/15/16 11:51 03/15/16 11:51 03/15/16 11:51 Microbiology 03/09/16 05:23 Blood Culture - Final Blood 03/09/16 05:28 Blood Culture - Final Blood Laboratory Results 03/15/16 04:35 03/15/16 04:35 03/14/16 03/15/16 03/16/16 05:59 05:59 05:59 Intake Total 250 Balance 250 Physical Exam - Physical Exam General Appearance: alert, no apparent distress EENT: normal ENT inspection Neck: supple Respiratory: decreased breath sounds, No respiratory distress, No rales, No rhonchi, No stridor, No wheezing Cardiac/Chest: regular rate, rhythm, tachycardia, systolic murmur Abdomen: distended, other (TTP Epigastrium. Hypoactive bowel sounds. Tympanic), No guarding, No rebound Back: No CVA tenderness Skin: normal color, warm/dry Lymphatic: no adenopathy Extremities: pedal edema, swelling, No calf tenderness, No Daisy's sign Neuro/Psych: alert, normal mood/affect, oriented x 3 ICD10 Worksheet Patient Problems: Problems Problem Status Diagnosed Hypoxia Acute Pneumonia Acute
[2016-03-15] MEDS: HEPARIN 5,000 UNIT/0.5 ML SYR SC SCH ×2 (13:02→23:04)
--- NOTE | 2016-03-15 14:46 | DX ---
AP Abdomen (Upright and Supine, 4 Views Total, at 2:09 p.m.) Clinical History: 81-year-old male with a history of ascending cholangitis with choledocholithiasis a nd a prior cholecystectomy with subsequent biliary stent. The patient presents with a distended abdom en, and short-term followup to reevaluate the distal ascending colon where potential pneumatosis was questioned. Comparison Study: Abdominal radiography from early this morning at 9:40 a.m. Findings: Again noted is a CBD stent in the right upper quadrant of the abdomen, just medial to some postcholecystectomy clips. As on the preceding study, there is an unusual "bubbly" appearance to the distal ascending colon near the level of the hepatic flexure, with a curvilinear mural lucency seen o n the supine views, raising the possibility of pneumatosis intestinalis. This could be further evalua najma with CT imaging, as clinically directed. On the upright view, there are some air-fluid levels susannah ntified within portions of the distal ileum and the ascending colon; these are nonspecific features b ut likely reflect an adynamic ileus. Air is noted within the transverse and the descending colon, and a few scattered distal descending colon diverticula are suspected. There is a levorotatory lumbar sc oliosis with multilevel degenerative changes. Surgical sutures are seen over the caudal pelvis. The l radha bases are notable for some atelectasis and/or mild infiltrates and small pleural effusions. There is mild relative elevation of the right hemidiaphragm. Impression: Findings are similar to a study at 9:40 a.m. If there is further clinical concern regardi ng the patient's symptoms, CT imaging could be considered.
--- NOTE | 2016-03-15 17:12 | PCMIDPN ---
Assessment/Plan: Assessment/Plan: 1. E. coli sepsis/bacteremia secondary to choledolithiasis: - Currently on Ceftriaxone -s/p difficult ERCP for stone extraction but will need repeat in 6 weeks. -Post procedure pancreatitis managed by GI/hospitalist team. -negative blood cx from 03/09/16. - wbc up today, -pt had abd work up in progress. Abd Ct pending - care coordinated and discussed with hospitalist team and GI Meds ceftriaxone Subjective: Afebrile. c/o abd pain and swelling in LE. Denies sob. WAnts to go home. Objective: Vital Signs Temp Pulse Resp BP Pulse Ox 36.9 C 93 14 121/81 H 96 03/15/16 15:07 03/15/16 15:07 03/15/16 15:07 03/15/16 15:07 03/15/16 15:07 Laboratory Results 03/15/16 04:35 03/15/16 04:35 03/14/16 03/15/16 03/16/16 05:59 05:59 05:59 Intake Total 250 Balance 250 - Physical Exam General Appearance: alert, no apparent distress Respiratory: lungs clear Cardiac/Chest: regular rate, rhythm Extremities: swelling (b/l LE) Abdomen: normal bowel sounds, distended, tender Skin: No erythema ICD10 Worksheet Patient Problems: Problems Problem Status Diagnosed Hypoxia Acute Pneumonia Acute
[2016-03-15] MEDS: NS 1,000 ML IV SCH ×2 (17:34→23:03)
--- NOTE | 2016-03-15 17:38 | CT ---
CT Scan of the Abdomen and Pelvis (Without IV Contrast) Clinical Indications: Back pain abdominal distention and possible pneumonitis. ERCP 5 days ago with stent placement. Comparison: plain radiographs March 15, 2016. Technique: No intravenous contrast was given. Multidetector helical CT imaging is performed from th e diaphragm to the symphysis pubis. Dose reduction techniques were utilized. Findings: There is a small right effusion and bibasilar atelectasis. A low dense cyst is noted in the dome of the liver. There is a small amount of pneumobilia. Common bi le duct stents present. There is a small amount of subhepatic gas as well as gas tracking into the re troperitoneum. There is free fluid and gas tracking all the way to the right lower quadrant abdominal predominantly in the retroperitoneal space starting at approximately at the level of the duodenum an d extending inferiorly. The kidneys are grossly unremarkable. There is a moderate amount of motion artifact. I do not see ruma dence of extravasation of a large amount oral contrast. The oral contrast does pass through the area of abnormality of the duodenum and into the small bowel distally. There may be a small amount of ext raluminal contrast just below the stents however the duodenal contour at this spot is difficult to di scern. has been a prior lower abdominal hernia repair. Bladder is unremarkable. . Moderate degenerative changes of the spine are present. Impression: 1. Suspected duodenal perforation with a small amount of adjacent contrast and a large amount of flui d and gas extending predominantly into the retroperitoneal space. This extends down the paracolic gut ter into the low abdomen and in the pararenal space into the low abdomen. This is suspected be relate d to the common bile duct stents. Critical results relayed by Dr. Thakur to Dr. Eugene, March 15, 2016 1732 hours.
[2016-03-15] MEDS ORDERED: BUPIVACAINE/EPI 0.25% 30 ML SDV ONE (18:45)
[2016-03-15] MEDS ORDERED: PROPOFOL/EMULSION 500 MG/50 ML BOTTLE IV ONE (19:15)
[2016-03-15] MEDS ORDERED: fentaNYL 250 MCG/5 ML INJ ONE (19:27)
[2016-03-15] MEDS ORDERED: ROCURONIUM 50 MG/5 ML VIAL ONE (19:50)
--- NOTE | 2016-03-15 20:00 | GCON ---
[f rep st] CONSULTATION DATE OF CONSULTATION: 03/15/2016 CHIEF COMPLAINT: Abdominal pain. HISTORY OF PRESENT ILLNESS: This is a 81-year-old male admitted to the Medical Service on February 12 with a diagnosis of pneumonia at that time. He has subsequently been managed on that service. O n the he had an MRCP which showed choledocholithiasis and secondary gram-negative sepsis with E coli bacteremia. Of note, the patient is status post laparoscopic cholecystectomy remotely. The kaden walter was subsequently evaluated by the Gastroenterology Service and taken to the GI suite for ERCP pe rformed last Tuesday. Per the report, it was a somewhat tortuous and difficult ERCP, but otherwise un eventful. The patient had successful stone extraction and multiple stent placements. Subsequently armando amos developed a pancreatitis and worsening abdominal pain. He was managed on the general medical floor . However, his pain continued to worsen and he had a worsening leukocytosis, up to 17,000 today. Be cause of his worsening pain and elevated leukocytosis, he had some imaging obtained, including a CT s can without IV contrast which showed a significant amount of free air around the second and third por tions of the duodenum, concerning for duodenal perforation, which is why I was asked to evaluate the patient. On my evaluation the patient is alert, oriented, in no distress; however, he does have some significant abdominal pain. He denies having fevers or chills, but does state that he wants definit ricardo care for this and understands that this may include surgery. PAST MEDICAL HISTORY: Significant for pneumonia, choledocholithiasis, cholecystitis. PAST SURGICAL HISTORY: Cholecystectomy performed remotely, and a knee arthroscopy. 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 Is retired. Denies illicit drug use . FAMILY HISTORY: Noncontributory. MEDICATIONS: Current outpatient medications include aspirin and naproxen. REVIEW OF SYSTEMS: A full 10-point review of systems was performed and unless explicitly stated abov e is otherwise negative. PHYSICAL EXAM: VITAL SIGNS: Temperature 36.9, blood pressure 121/81, heart rate 93, and he is 96% o n 3 L nasal cannula. GENERAL: He is alert and oriented, in no acute distress. CV: He has a regula r rate and rhythm, with no murmurs appreciated. LUNGS: Clear, although diminished at the bases. AB DOMEN: Distended, and tender to deep palpation, especially in the epigastrium. I do not appreciate any rebound tenderness or guarding, but he does have significant distention and pain. EXTREMITIES: Warm and well perfused. LABS: Leukocytosis to 17.6. H and H stable at 11 and 34. His platelets are 316. His chemistries a re significant for an elevated creatinine to 1.6, and are otherwise unremarkable, with the exception of an elevated lipase at 1176. IMAGING DATA: Imaging includes a CT scan of his abdomen and pelvis performed earlier today without I V contrast, which shows suspected duodenal perforation with a small amount of adjacent contrast and l arge amount of fluid and gas extending predominantly into the retroperitoneal space, extending down t he right pericolic gutter into the abdomen and perirenal space. ASSESSMENT AND PLAN: 81-year-old male with duodenal perforation. I had a long discussion with the p bernice after reviewing his images with the on-call radiologist, and discussing his case with the on-c all financial services counselor as well. I do feel like he has a non contained duodenal perforation, and feel that surgical exploration is warranted. I am unclear as to the site of the perforation as he has a significant amount of air both anterior and retroperitoneally. I did tell him that I would proceed i nitially laparoscopically for exploration to interrogate the right upper quadrant, but feel that this will more than likely be an open case for full kocherization and mobilization of the duodenum to susannah ntify and repair the perforation. He understands the risks, benefits, and alternatives, and wishes t o proceed. We will plan to proceed expediently to the operating room this evening. /[id number]/MODL
[2016-03-15] MEDS ORDERED: DESFLURANE 240 ML BOTTLE IH ONE (20:20)
[2016-03-15] MEDS ORDERED: HYDROmorphONE/DILAUDID 2 MG/ML SYR ONE (21:29)
[2016-03-15] MEDS ORDERED: SUGAMMADEX SODIUM 200 MG/2 ML VIAL IVP ONE ×2 (21:30→21:31)
--- NOTE | 2016-03-15 22:09 | POSTOPPROG ---
Post Op Note Date of Operation: 03/15/16 Surgeon: Manjit Dunbar Order Picker/Assembler: Delmer Salcedo MD Anesthesiologist: William Anesthesia: GET(General Endotracheal) Pre-op Diagnosis: Duodenal perforation Post-op Diagnosis: same Procedure: Exploratory laproscopy->laparotomy, primary repair duodenal perforation Findings: 1.5cm duodenal perf 2nd portion. CHARLIE, J tube Inf/Abcess present in the surg proc area at time of surgery?: No EBL: 500-1000 (800) Drains: Federico Deleon
[2016-03-15] MEDS ORDERED: fentaNYL 100 MCG/2 ML INJ ONE (22:24)
[2016-03-15] MEDS: PIPERACILLIN/TAZO 3.375 GM/DEX 50 ML IV SCH (23:02)
[2016-03-15] MEDS: diphenhydrAMINE 25 MG CAP PO SCH (23:04)
[2016-03-15 23:05] LABS: % IMMATURE GRANULYOCYTES 0.7 % (0.0-1.1); ABSOLUTE IMMATURE GRANULOCYTES 0.13 10^3/uL (0.00-0.10); ADD DIFF? NO; ADD MORPH? NO; ADD SCAN? NO; ATYPICAL LYMPHOCYTE FLAG 10 (0-99); FRAGMENT RBC FLAG 0 (0-99); HEMATOCRIT 35.5 % (40.0-51.0); HEMOGLOBIN 11.4 g/dL (13.7-17.5); LEFT SHIFT FLG 50 (0-99); LIPEMIA HEMOLYSIS FLAG 80 (0-99); MEAN CELL HEMOGLOBIN 31.4 pg (27.9-34.1); MEAN CELL HEMOGLOBIN CONCENTR. 32.1 g/dL (32.4-36.7); MEAN CELL VOLUME 97.8 fL (81.5-99.8); MEAN PLATELET VOLUME 9.8 fL (8.7-11.7); PLATELET CLUMPS FLAG 0 (0-99); PLATELET COUNT 368 10^3/uL (150-400); RED BLOOD CELL COUNT 3.63 10^6/uL (4.40-6.38); RED CELL DISTRIBUTION WIDTH 14.5 % (11.5-15.2)
[2016-03-16] MEDS: HYDROmorphONE/DILAUDID 1 MG/ML SYR IVP PRN ×3 (03:56→22:57)
[2016-03-16 05:46] LABS: % IMMATURE GRANULYOCYTES 0.7 % (0.0-1.1); ADD DIFF? NO; ADD MORPH? NO; ADD SCAN? NO; ATYPICAL LYMPHOCYTE FLAG 10 (0-99); FRAGMENT RBC FLAG 0 (0-99); HEMATOCRIT 29.3 % (40.0-51.0); HEMOGLOBIN 9.9 g/dL (13.7-17.5); LEFT SHIFT FLG 40 (0-99); LIPEMIA HEMOLYSIS FLAG 90 (0-99); MEAN CELL HEMOGLOBIN CONCENTR. 33.8 g/dL (32.4-36.7); MEAN CELL VOLUME 94.8 fL (81.5-99.8); MEAN PLATELET VOLUME 9.7 fL (8.7-11.7); PLATELET CLUMPS FLAG 0 (0-99); PLATELET COUNT 338 10^3/uL (150-400); RED BLOOD CELL COUNT 3.09 10^6/uL (4.40-6.38); RED CELL DISTRIBUTION WIDTH 14.5 % (11.5-15.2)
[2016-03-16] MEDS: PIPERACILLIN/TAZO 3.375 GM/DEX 50 ML IV SCH ×3 (05:53→21:25)
[2016-03-16] MEDS: HEPARIN 5,000 UNIT/0.5 ML SYR SC SCH ×3 (05:53→21:25)
[2016-03-16 05:57] LABS: ALANINE AMINOTRANSFERASE 47 IU/L (21-72); ALBUMIN 2.1 g/dL (3.5-5.0); ALKALINE PHOSPHATASE 63 IU/L (38-126); ANION GAP 12 mEq/L (8-16); ASPARTATE AMINOTRANSFERASE 39 IU/L (17-59); BILIRUBIN,TOTAL 0.7 mg/dL (0.1-1.4); CALCIUM 6.9 mg/dL (8.5-10.4); CARBON DIOXIDE 21 mEq/l (22-31); CHLORIDE 112 mEq/L (97-110); CREATININE 1.4 mg/dL (0.7-1.3); GLOMERULAR FILTRATION RATE 49; GLUCOSE 123 mg/dL (70-100); POTASSIUM 4.6 mEq/L (3.5-5.2); SODIUM 145 mEq/L (134-144); TOTAL PROTEIN 4.7 g/dL (6.3-8.2)
[2016-03-16] MEDS: NS 1,000 ML IV SCH (05:58)
[2016-03-16] MEDS ORDERED: NALOXONE HCL 0.4 MG/ML INJ IVP PRN (07:56)
[2016-03-16] MEDS: PANTOPRAZOLE SODIUM 40 MG in NS 100 ML IV SCH ×2 (08:21→21:25)
--- NOTE | 2016-03-16 08:39 | ECHO ---
[id number] + + [address] : : [place] [address] : : [phone] + + Adult Echocardiographic Report + -------+ :Name: PORSHA CANTU CStudy Date: 03/15/2016 10:19 AM : : Hospital Admission Number: [id number] Locati on: 379: :: 1935 Gender: Male Height: 69 in : :Age: 81 yrs Race: WH Weight: 190 lb : :Reason For Study: Lower ext swelling : : BSA: 2.0 meter s2 : + -------+ MMode/2D Measurements & Calculations IVSd: 0.90 cm LVIDd: 4.9 cm FS: 57.7 % Ao root diam: LVPWd: 0.87 cm LVIDs: 2.1 cm EDV(Teich): 3.2 cm 114.5 ml LA dimension: ESV(Teich): 4.6 cm 14.2 ml EF(Teich): 87.6 % LVLd ap4: 8.3 cm SV(MOD-sp4): EDV(MOD-sp4): 57.0 ml 84.0 ml LVLs ap4: 6.5 cm ESV(MOD-sp4): 27.0 ml EF(MOD-sp4): 67.9 % Normal Measurement Values: + + :LVIDd (3.5-5.7cm) IVSd (0.6-1.1cm) LVPWd (0.6-1.1cm) Aortic Root (2.0-3.7cm)Left Atrium (1.5-4.0cm): :LV Vol(d) (76-115ml) LV Vol(s) (29-48ml) Ejec Fraction (50-65%)PV Kvng (0.6- 1.2m/s) TV Kvng (0.4-1.0m/s) : :MV E Kvng (0.8-1.0m/s)MV A Kvng (0.3-1.0m/s)LVOT Kvng (0.7-1.2m/s) Asc Ao Kvng ( 0.9-1.8m/s) : + + Doppler Measurements & Calculations MV E max kvng: 66.1 cm/sec Ao mean P.5 mmHg TR max kvng: 272.8 cm/sec MV A max kvng: 65.6 cm/sec Ao V2 mean: 108.0 cm/sec TR max P.8 mmHg MV E/A: 1.0 Ao V2 VTI: 26.6 cm RAP systole: 5.0 mmHg RVSP(TR): 34.8 mmHg Left Ventricle The left ventricle is normal in size. There is normal left ventricular wall thickness. The left ventricle is hyperdynamic. Ejection Fraction = 75-80%. No regional wall motion abnormalities noted. Right Ventricle The right ventricle is normal in size and function. Atria The left atrial size is normal. Right atrial size is normal. Mitral Valve The mitral valve is normal in structure and function. There is no evidence of mitral valve prolapse. There is no mitral valve stenosis. There is mild to moderate mitral regurgitation. Tricuspid Valve Normal tricuspid valve. There is mild tricuspid regurgitation. Right ventricular systolic pressure is normal. Aortic Valve The aortic valve is trileaflet. The aortic valve opens well. There is no aortic stenosis. There is no aortic insufficiency. Pulmonic Valve The pulmonic valve is normal in structure and function. There is no pulmonic valvular regurgitation. Great Vessels The aortic root is normal size. Pericardium/Pleural There is no pericardial effusion. Conclusion A complete two-dimensional transthoracic echocardiogram was performed (2D, M-mode, Doppler and color flow Doppler). The left ventricle is hyperdynamic. Ejection Fraction = 75-80%. Normal LV wall motion RV normal in size and systolic function There is mild to moderate mitral regurgitation. There is mild tricuspid regurgitation. Right ventricular systolic pressure is normal. No prior echo Final Reading Physician: Dr Debo Marte electronically signed on 03/16/2016 08:38 AM Ordering Physician: Leanne Wagner Performed By: Kiana Hurley, JENNIFERCS
[2016-03-16] MEDS: HYDROmorphONE/DILAUDID 6 MG/30 ML PCA IV PRN (08:55)
--- NOTE | 2016-03-16 09:11 | GOP ---
[f rep st] OPERATIVE REPORT DATE OF OPERATION: 03/15/2016 SURGEON: Manjit Dunbar MD CAKE TESTER: Delmer Salcedo MD ANESTHESIA: General endotracheal. ANESTHESIOLOGIST: Benjy Thomas MD PREOPERATIVE DIAGNOSIS: Duodenal perforation. POSTOPERATIVE DIAGNOSIS: Duodenal perforation. PROCEDURE PERFORMED: Exploratory laparoscopy converted to exploratory laparotomy with primary repair of duodenal perforation with omental pedicle flap and jejunostomy feeding tube placement. FINDINGS: 1.5 cm perforation in the anteromedial portion of the 2nd portion of the duodenum, repaire d primarily, covered with omental pedicle flap. Jejunostomy feeding tube placed. SPECIMENS: None. ESTIMATED BLOOD LOSS: 800 cc. DESCRIPTION OF PROCEDURE: The patient was greeted in the preoperative suite. Once again, risks, nestor efits, and alternatives were discussed at length. Consent was then signed. He was then brought back to the operative suite, placed on the OR table in supine position. After all anesthesia machines in [facility] were on and functioning, [facility] time-out was performed ending with al mahendra in agreement. General endotracheal anesthesia was then induced without incident. The patient's ab domen was then widely prepped and draped in typical sterile fashion. I entered the abdomen using the Veress needle in the left upper quadrant and insufflated to 15 mmHg C O2, which was well tolerated by the patient. I entered the patient's abdomen using the Subtechiport tech nique and a 5 mm 0-degree laparoscope supraumbilically. Once in the abdomen, it was apparent he had some distended small bowel and colon. I did place 2 additional 5 mm trocars, one in the left and one in the right upper quadrant, both under direct visualization. I turned my attention toward the right upper quadrant where the patient had a significant amount of a dhesive disease secondary to his previous operation at this area. Using Endo Jena, I did lyse some of these adhesions, but it was clear that I was not getting the adequate exposure needed. At this p oint in time, I chose to convert to an open procedure. I made a generous midline incision, carried it down to the subcutaneous tissue using electrocautery. Once successfully in the abdomen, I placed a retractor for visualization. I turned my attention tow carrie the right upper quadrant and lysed the adhesions between the colon and the liver using a combinat ion of Harmonic Scalpel and Bovie electrocautery. Once these adhesions were taken down, I mobilized the hepatic flexure inferiorly via the white line of Toldt via the same manner. After this, I turned my attention, identified the duodenum tracking from the pylorus laterally. The anterior portion tim eared inflamed; however, I saw no cheri perforation. I then performed a Alejandra maneuver using blunt dissection and Harmonic Scalpel in a lateral to medial fashion. During this mobilization, I identifi ed a perforation in the anteromedial portion of the 2nd portion of the duodenum, approximately 1.5 cm in greatest dimension. After identification of the perforation, I continued my Kocherization in order to have adequate lengt h and mobilization of the small bowel. During the medialization portion of this, there was a signifi cant amount of pancreatic edema and inflammation, and there were some venous tributary bleeders that we did get into which were successfully taken care of with multiple interrupted 3-0 Vicryl sutures. After hemostasis was achieved, I turned my attention toward repair using multiple interrupted 3-0 Vi cryl sutures. I repaired the duodenal perforation in a transverse fashion, noting excellent reapprox imation of both the underlying mucosa and serosa. After this was done, I irrigated the abdomen with 2 L warm normal saline to remove the bilious staine d fluid within the belly, after which I elected to place a feeding tube. I identified the ligament o f Treitz, and approximately 30 cm distal to this, I used a pursestring suture, through which I placed a 10-Palestinian jejunostomy feeding tube approximately 25 cm into the small bowel. I then whittled it f or approximately 3 additional centimeters and tacked it to the anterior abdominal wall, through which it was brought out appropriately and attached to the skin with an interrupted silk suture. To buttress my repair, I mobilized the greater omentum off the transverse colon. It did appear to snyder ve adequate blood supply. In a Mk patch-type fashion, I laid 2 interrupted Vicryl sutures on eit her side of my repair, through which I placed the tongue of the omental pedicle flap onto, noting exc ellent coverage and good vascularization of that area. I then placed a 19-Palestinian round silicone CHARLIE a djacent to the repair and brought it out through my port site on the right upper quadrant and shiftman d it to the skin with an additional silk suture. I then inspected the remainder of the abdomen, checked adequate nasogastric tube placement, which was in the antrum of the stomach, and interrogated the rest the abdomen for any other injuries, of which I found none. I then turned my attention toward closing. I reapproximated the midline fascia using #1 PDS suture, noting excellent fascial reapproximation. I irrigated the subcutaneous tissues with sterile saline a nd closed the skin with ricarda. Sterile dressings were then placed. The patient was then extubated in the operative suite and taken to the PACU in satisfactory condition. DRAINS: A 19-Palestinian CHARLIE and 10-Palestinian jejunostomy feeding tube. COUNTS: All counts reported as correct x2. /[id number]/MODL
[2016-03-16] MEDS: MICAFUNGIN NA 100 MG in NS 100 ML IV SCH (09:13)
--- NOTE | 2016-03-16 10:32 | SOAPPROG ---
KELLIE Progress Note Assessment/Plan: Assessment: 1. Choledocholithiasis s/p ERC with stone removal and stenting 2. Abdominal pain RUQ/RLQ 3. E.coli sepsis 4. Post-ERC pancreatitis 5. Duodenal perforation- POD 1 Plan: 1. Per surgery 2. Family aware of events. Spoke with Josette () and Feli (granddaughter) to explain events 3. Monitor in ICU for now 4. Will follow 03/16/16 10:28 Subjective: CC: Abdominal pain well managed Feels good overall today after surgery. Objective: Vital Signs Temp Pulse Resp BP Pulse Ox 36.8 C 81 18 114/68 98 03/16/16 10:03 03/16/16 10:03 03/16/16 10:03 03/16/16 10:03 03/16/16 10:03 Laboratory Results 03/16/16 05:25 03/16/16 05:25 03/15/16 03/16/16 03/17/16 05:59 05:59 05:59 Intake Total 250 5730 Output Total 1590 Balance 250 4140 Physical Exam - Physical Exam General Appearance: no apparent distress EENT: other (NG tube to LIWS) Neck: supple Respiratory: decreased breath sounds, rhonchi Cardiac/Chest: regular rate, rhythm, systolic murmur Abdomen: soft, other (mid-line wound clean and intact) ICD10 Worksheet Patient Problems: Problems Problem Status Diagnosed Hypoxia Acute Pneumonia Acute
--- NOTE | 2016-03-16 13:28 | SOAPPROG ---
KELLIE Progress Note Assessment/Plan: Assessment/Plan - 81yo M POD#1 ex-lap, repair duodenal perf, omental patch, J-tube - Overnight, VSS, HDS. Pain appropriately controlled. Will start D-MUSTANGER so he can manage - NGT to LIWS, strict NPO. This will cont for at least 1 week to allow prox duodenal bowel rest and healing - CHARLIE to bulb suction, output 150cc and serosang, non-bilious currently. - Flushing J tube, will start elemental trickle feeds today at 10cc. - BID protinix to limit GI secretions. - Doing well, ok for transfer to floor. 03/16/16 13:25 Subjective: Doing well, pain appropriately controlled. CHARLIE serosang Objective: Vital Signs Temp Pulse Resp BP Pulse Ox 36.8 C 96 19 117/105 H 92 03/16/16 12:00 03/16/16 12:00 03/16/16 12:00 03/16/16 12:00 03/16/16 12:00 Laboratory Results 03/16/16 05:25 03/16/16 05:25 03/15/16 03/16/16 03/17/16 05:59 05:59 05:59 Intake Total 250 5730 Output Total 1590 Balance 250 4140 ICD10 Worksheet Patient Problems: Problems Problem Status Diagnosed Hypoxia Acute Pneumonia Acute
--- NOTE | 2016-03-16 13:34 | PCMIDPN ---
Assessment/Plan: Assessment/Plan: 1. E. coli sepsis/bacteremia secondary to choledolithiasis, with small duodenal perforation: - s/p repair of duodenum 03/15/16. OP noted reviewed. Bilious stained fluid noted in abdomen. No abscess. - Currently on zosyn , micafungin based on events of yesterday. -s/p difficult ERCP for stone extraction but will need repeat in 6 weeks. -Post procedure pancreatitis managed by GI/hospitalist team. -negative blood cx from 03/09/16. - wbc slightly improved from yesterday. Meds zosyn 3.3.75gm q6 03/15/16 micafungin 100mg daily s/p ceftriaxone Subjective: Afebrile. sitting in chair in ICU. spirits are good. he is quite jovial today, feeling much more comfortable. Denies sob, sputum production. Less abd pain Objective: Vital Signs Temp Pulse Resp BP Pulse Ox 36.8 C 96 19 117/105 H 92 03/16/16 12:00 03/16/16 12:00 03/16/16 12:00 03/16/16 12:00 03/16/16 12:00 Laboratory Results 03/16/16 05:25 03/16/16 05:25 03/15/16 03/16/16 03/17/16 05:59 05:59 05:59 Intake Total 250 5730 Output Total 1590 Balance 250 4140 - Physical Exam General Appearance: alert, no apparent distress Respiratory: coarse breath sounds (mild at bases) Cardiac/Chest: regular rate, rhythm Extremities: swelling (bl LE) Abdomen: other (bs quiet. less distended than yesterday. less tender. feeding tube noted. ) Skin: No erythema ICD10 Worksheet Patient Problems: Problems Problem Status Diagnosed Hypoxia Acute Pneumonia Acute
--- NOTE | 2016-03-16 14:11 | GCON ---
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 HISTORY OF PRESENT ILLNESS: Mr. Zhou is an extremely pleasant, 81-year-old white male with a past medical history of apparently a cholecystectomy. He is visiting here from [place] and began feeling fatigue as well as some fevers and chills. He was diagnosed with pneumonia and admitted. Over the course of his hospitalization, from respiratory standpoint, he was doing well. However, he began dev eloping abdominal pain. Abdominal ultrasound performed on 03/10/2016 revealed intra- and extrahepati c biliary ductal dilatation and common bile duct dilation with biliary sludge. GI was subsequently c onsulted. An ERCP was performed; however, this was complicated by a duodenal perforation. Surgery w as consulted. He underwent exploratory laparoscopy, which was repaired primarily and covered with an omental pedicle flap. The patient is currently comfortable, pain has improved, and he feels markedl y better. He is currently resting comfortably in the intensive care unit. PAST MEDICAL HISTORY: Significant for cholecystectomy. ALLERGIES: To morphine. SOCIAL HISTORY: Infrequent alcohol use. Increased tobacco use. He resides mostly in [place]. He i s from [place]. CURRENT MEDICATIONS: Include Tylenol, aspirin, Tums, Benadryl, Dilaudid, Narcan, Zofran, pantoprazol e, Zosyn, and Restoril. PHYSICAL EXAMINATION: VITAL SIGNS: Blood pressure 117/105, pulse 96, respirations 19, temperature 3 6.8, oxygen saturation 92% on 4 L. GENERAL: He is a well-developed, well-nourished, elderly white m zack who is resting comfortably in no acute distress. HEENT: Eyes PERRL, EOMI. Throat shows no eryt cortney nor tonsillar hypertrophy. NECK: Supple. There is no cervical adenopathy. HEART: Regular ra te and rhythm with a 2/6 systolic murmur at the left sternal border without radiation. LUNGS: Dimin ished breath sounds. There is no wheeze appreciated. ABDOMEN: Soft, but appropriately tender. Binger el sounds are diminished. EXTREMITIES: No clubbing, cyanosis, or edema. LABORATORY DATA: White count 15, hemoglobin 9.9, hematocrit 29, platelet count 338. Sodium 145, pot assium 4.6, chloride 112, CO2 21, BUN 36, creatinine 1.4, glucose 123. IMPRESSION: 1. Community-acquired pneumonia. 2. Status post endoscopic retrograde cholangiopancreatogram. 3. Duodenal perforation with repair. 4. Pancreatitis. RECOMMENDATIONS: 1. Adequate pain control. 2. DVT and PE prophylaxis. 3. Stress ulcer prophylaxis. 4. Early ambulation. Thank you very much. /[id number]/MODL
--- NOTE | 2016-03-16 14:36 | HOSPPROG ---
Hospitalist Progress Note Assessment/Plan: Assessment/Plan: 81 y/o male p/w sepsis in setting of E. coli bacteremia, c/b duodenal perforation, acute pancreatitis # Sepsis. Evidenced by tachypnea + tachycardia + leukocytosis + infection ( bacteremia), resulting in autonomic dysregulation in setting of infxn - s/p IVF and Abx # E. coli bacteremia. Likely 2/2 choledolithiasis - s/p ERCP 03/12, stones removed, needs repeat in 6 weeks. - initially IV CTX, now broadened s/p perf # Duodenal perforation. Evidenced by free air on CT, s/p ex lap by Dr. Dunbar 03/15/16 - POD#1 - appreciate Infectious Disease consultation, initiated on Zosyn and micafungin , day 2 # Acute pancreatitis. Occurred post-ERCP w/ stone removal - continue IV hydration - will likely need a feeding tube in place if not eating soon # LE edema. Likely 2/2 IVF, dimer elevated, LE US neg 03/11 - cont JIMMY hose # Atelectasis. 2/2 immobility and intra-abd perf - cont IS and supp o2 # MILLA. 2/2 hypovolemia, s/p IVF creat improving - Cr downtrending - monitor UOP # Anemia. No signs of GI bleeding or acute blood loss - has + heme stool - off ASA - PCP is in [place]/ he needs to get f/u with a colonoscopy # GERD. Cont tums and PPI Diet. NPO, advanced under the direction General surgery Prophylaxis. High risk patient, heparin subcu Code. Full Disposition. Anticipated discharge uncertain this time, patient has yet to reach clinical stabilization with recent duodenal perforation, safe to transfer to the [facility] for this time Subjective: Abdominal discomfort improving status post surgery Objective: Vital Signs Temp Pulse Resp BP Pulse Ox 36.6 C 83 18 133/68 H 98 03/16/16 14:27 03/16/16 14:27 03/16/16 14:27 03/16/16 14:27 03/16/16 14:27 Laboratory Results 03/16/16 05:25 03/16/16 05:25 03/15/16 03/16/16 03/17/16 05:59 05:59 05:59 Intake Total 250 5730 Output Total 1590 Balance 250 4140 - Physical Exam Constitutional: no apparent distress, appears nourished, not in pain, uncomfortable Cardiovascular: systolic murmur, tachycardia, edema (1 to 2+ bilateral lower extremities), No irregularly irregular Respiratory: reduced air movement (Bilateral bases), inspiratory crackles ( Bilateral bases), No expiratory wheeze, No bronchial breath sounds, No respiratory distress Gastrointestinal: tenderness (Midepigastric area), distension (Mild to moderate) , No normoactive bowel sounds (Hypoactive), No guarding Skin: other (Dense ecchymoses left lower abdomen, surgical site drains in place without any surrounding erythema or induration) Neurologic: AAOx3, sensation intact bilaterally, No weakness Psychiatric: interacting appropriately, not anxious, not encephalopathic, thought process linear ICD10 Worksheet Patient Problems: Problems Problem Status Diagnosed Hypoxia Acute Pneumonia Acute
[2016-03-16] MEDS: diphenhydrAMINE 25 MG CAP PO SCH (20:35)
[2016-03-17] MEDS: PIPERACILLIN/TAZO 3.375 GM/DEX 50 ML IV SCH (05:05)
[2016-03-17] MEDS: HEPARIN 5,000 UNIT/0.5 ML SYR SC SCH ×3 (05:05→21:01)
[2016-03-17 05:50] LABS: % IMMATURE GRANULYOCYTES 0.8 % (0.0-1.1); ADD DIFF? NO; ADD MORPH? NO; ADD SCAN? NO; ATYPICAL LYMPHOCYTE FLAG 20 (0-99); FRAGMENT RBC FLAG 0 (0-99); HEMATOCRIT 26.9 % (40.0-51.0); HEMOGLOBIN 8.8 g/dL (13.7-17.5); LEFT SHIFT FLG 10 (0-99); LIPEMIA HEMOLYSIS FLAG 80 (0-99); MEAN CELL HEMOGLOBIN 31.1 pg (27.9-34.1); MEAN CELL HEMOGLOBIN CONCENTR. 32.7 g/dL (32.4-36.7); MEAN CELL VOLUME 95.1 fL (81.5-99.8); MEAN PLATELET VOLUME 9.4 fL (8.7-11.7); PLATELET CLUMPS FLAG 0 (0-99); PLATELET COUNT 358 10^3/uL (150-400); RED BLOOD CELL COUNT 2.83 10^6/uL (4.40-6.38); RED CELL DISTRIBUTION WIDTH 14.6 % (11.5-15.2)
[2016-03-17 05:55] LABS: ALANINE AMINOTRANSFERASE 41 IU/L (21-72); ALBUMIN 2.1 g/dL (3.5-5.0); ALKALINE PHOSPHATASE 61 IU/L (38-126); ANION GAP 7 mEq/L (8-16); ASPARTATE AMINOTRANSFERASE 30 IU/L (17-59); BILIRUBIN,TOTAL 0.7 mg/dL (0.1-1.4); CALCIUM 7.2 mg/dL (8.5-10.4); CARBON DIOXIDE 25 mEq/l (22-31); CHLORIDE 114 mEq/L (97-110); CREATININE 1.5 mg/dL (0.7-1.3); GLOMERULAR FILTRATION RATE 45; GLUCOSE 115 mg/dL (70-100); POTASSIUM 3.9 mEq/L (3.5-5.2); SODIUM 146 mEq/L (134-144); TOTAL PROTEIN 4.7 g/dL (6.3-8.2)
--- NOTE | 2016-03-17 09:18 | SOAPPROG ---
SOAP Progress Note Assessment/Plan: Assessment: SP DUODENAL PERF/ MINIMAL NG OUT/ 80CC CHARLIE DRAINAGE/ ABD SOFT/ WOUND OK/ AFEBRILE Plan: CONTINUE NPO/ CONTINUE TUBE FEEDS 03/17/16 09:17 Objective: Vital Signs Temp Pulse Resp BP Pulse Ox 36.8 C 93 12 118/74 94 03/17/16 07:57 03/17/16 07:57 03/17/16 07:57 03/17/16 07:57 03/17/16 07:57 Laboratory Results 03/17/16 05:15 03/17/16 05:15 03/16/16 03/17/16 03/18/16 05:59 05:59 05:59 Intake Total 5778 297484 Output Total 1590 535 Balance 4140 [id number] ICD10 Worksheet Patient Problems: Problems Problem Status Diagnosed Hypoxia Acute Pneumonia Acute
[2016-03-17] MEDS ORDERED: HYDROmorphONE/DILAUDID 2 MG TAB TUBE PRN (09:43)
[2016-03-17] MEDS: MICAFUNGIN NA 100 MG in NS 100 ML IV SCH (09:51)
--- NOTE | 2016-03-17 10:14 | HOSPPROG ---
Hospitalist Progress Note Assessment/Plan: Assessment/Plan: 81 y/o male p/w sepsis in setting of E. coli bacteremia, c/b duodenal perforation, acute pancreatitis, ileus # Sepsis. Evidenced by tachypnea + tachycardia + leukocytosis + infection ( bacteremia), resulting in autonomic dysregulation in setting of infxn - s/p IVF and Abx # E. coli bacteremia. Likely 2/2 choledolithiasis - s/p ERCP 03/12, stones removed, needs repeat in 6 weeks. - initially IV CTX, now broadened s/p perf - will d/w ID, likely transition back to CTX if safe # Duodenal perforation. Evidenced by free air on CT, s/p ex lap by Dr. Dunbar 03/15/16 - POD#2 - appreciate Infectious Disease consultation, initiated on Zosyn and micafungin , day 3, consider de-escalation # Ileus. Anticipated post-op, acute, no flatus or BMs this AM - TF at [facility], will d/w Surg whether to increase # Acute pancreatitis. Occurred post-ERCP w/ stone removal - continue IV hydration - add tube dilaudid, cont FASHION INTERN for breakthrough # LE edema. Likely 2/2 IVF, dimer elevated, LE US neg 03/11 - cont JIMMY hose # Atelectasis. 2/2 immobility and intra-abd perf - cont IS and supp o2 # MILLA. 2/2 hypovolemia, s/p IVF creat improving - Cr downtrending - monitor UOP # Anemia. No signs of GI bleeding or acute blood loss - has + heme stool - off ASA - PCP is in [place]/ he needs to get f/u with a colonoscopy # GERD. Cont tums and PPI Diet. TF, advanced under the direction General surgery Prophylaxis. High risk patient, heparin subcu Code. Full Disposition. Anticipated discharge uncertain this time, patient has yet to reach clinical stabilization with recent duodenal perforation Subjective: frustrated by all of his tubes, no BMs, no flatus Objective: Vital Signs Temp Pulse Resp BP Pulse Ox 36.8 C 93 12 118/74 94 03/17/16 07:57 03/17/16 07:57 03/17/16 07:57 03/17/16 07:57 03/17/16 07:57 Laboratory Results 03/17/16 05:15 03/17/16 05:15 03/16/16 03/17/16 03/18/16 05:59 05:59 05:59 Intake Total 8993 247407 Output Total 7444 512 Balance 4148 [id number] - Physical Exam Constitutional: no apparent distress, appears nourished, uncomfortable, No chronically ill appearing Cardiovascular: regular rate and rhythym, no murmur, rub, or gallop, edema (1+ bilat LE), No irregularly irregular, No tachycardia Respiratory: reduced air movement (bilat bases), inspiratory crackles (bilat bases), No expiratory wheeze, No bronchial breath sounds, No respiratory distress Gastrointestinal: other (J-tube, CHARLIE-drain in place, central abd incision), No normoactive bowel sounds (hypoactive), No tenderness, No guarding Skin: other (ecchymoses LLQ w/o soft tissue tenderness, no erythema, no induration, no fluctuance) Musculoskeletal: full muscle strength, no muscle tenderness, normal joint ROM Neurologic: AAOx3, sensation intact bilaterally ICD10 Worksheet Patient Problems: Problems Problem Status Diagnosed Hypoxia Acute Pneumonia Acute
--- NOTE | 2016-03-17 10:45 | PCMIDPN ---
Assessment/Plan: #Davis-S E coli bacteremia, multiple choledochal stones s/p ERCP. 03/09 blood cx demonstrate clearance. Will be at 2 weeks of therapy at 03/21/16 --continue antibiotics for DU perf as described below # DU perf with obvious intra-abdominal spillage. Needs 10-14 days antibiotics/ antifungal (since upper tract perf) post surgery, PO okay if diet advanced & absorbing, stop date tentatively 03/29/16. No intra-op cultures to base therapy , will continue coverage for GNR, yeast for DU perf. --narrow back to ceftriaxone, fluconazole- both IV for now. Recognize Gap in therapy is Enterococcus and anaerobes --dc zosyn, micafungin Meds zosyn 3.3.75gm q6 03/15/16 micafungin 100mg daily ceftriaxone 1gm IV daily, 03/07-03/15 Subjective: Feeling a bit better, wants to take a shower. No flatus Objective: Vital Signs Temp Pulse Resp BP Pulse Ox 36.8 C 93 12 118/74 94 03/17/16 07:57 03/17/16 07:57 03/17/16 07:57 03/17/16 07:57 03/17/16 07:57 Laboratory Results 03/17/16 05:15 03/17/16 05:15 03/16/16 03/17/16 03/18/16 05:59 05:59 05:59 Intake Total 5730 [id number] Output Total 1590 535 Balance 4140 [id number] - Physical Exam General Appearance: alert, no apparent distress EENT: pale conjunctiva, No scleral icterus Respiratory: other (Decreased breath sounds in the bases), No accessory muscle use Neck: supple Cardiac/Chest: regular rate, rhythm Extremities: pedal edema Abdomen: normal bowel sounds (Scattered bowel sounds), soft, distended, other ( Feeding tube left mid quadrant) Skin: warm/dry, No rash Neuro/Psych: alert, normal mood/affect, oriented x 3 - Line/s PIV Lines: other (Right forearm), No drainage, No erythema ICD10 Worksheet Patient Problems: Problems Problem Status Diagnosed Hypoxia Acute Pneumonia Acute
[2016-03-17] MEDS: PANTOPRAZOLE SODIUM 40 MG in NS 100 ML IV SCH ×2 (11:12→21:03)
[2016-03-17] MEDS: cefTRIAXone 2 GM in D5W 50 ML IV SCH (12:00)
--- NOTE | 2016-03-17 15:45 | SOAPPROG ---
KELLIE Progress Note Assessment/Plan: Assessment: 1. Choledocholithiasis s/p ERC with stone removal and stenting 2. Abdominal pain RUQ/RLQ 3. E.coli sepsis 4. Post-ERC pancreatitis 5. Duodenal perforation- POD 2 6. Edematous 7. Renal insufficiency Plan: 1. Per surgery 2. Tube feeds per operatively placed J-tube 3. Will need repeat ERC to remove stents and definitively remove all bile ductal debris at week 6-8 post-op. Stents will need to be exchanged sooner if he develops evidence of obstruction 4. Bladder scan to exclude outlet obstruction given known BPH (history of green light laser Rx for this 3 yrs ago) 5. May need amado 6. Decrease IVF rate 7. Will follow 03/17/16 15:37 03/17/16 15:47 Subjective: CC: Abdominal pain- mostly midline around the surgical incision. The right sided pain is gone Reports trouble making urine and increased swelling. Objective: Vital Signs Temp Pulse Resp BP Pulse Ox 36.9 C 90 15 136/73 H 95 03/17/16 12:00 03/17/16 13:50 03/17/16 12:00 03/17/16 13:50 03/17/16 13:50 Laboratory Results 03/17/16 05:15 03/17/16 05:15 03/16/16 03/17/16 03/18/16 05:59 05:59 05:59 Intake Total 5730 [id number] Output Total 1590 535 300 Balance 4140 629887 -300 Physical Exam - Physical Exam General Appearance: no apparent distress EENT: other (NG tube clamped) Neck: supple Respiratory: No rales, No rhonchi, No stridor, No wheezing Cardiac/Chest: regular rate, rhythm, edema, No tachycardia Abdomen: soft, other (Very hypoactive bowel sounds. Midline incision dry without bleeding. TTP diffusely. J-tube RUQ), No guarding, No rebound Skin: normal color, No cyanosis, No jaundice Extremities: pedal edema, swelling Neuro/Psych: alert, normal mood/affect, oriented x 3 ICD10 Worksheet Patient Problems: Problems Problem Status Diagnosed Hypoxia Acute Pneumonia Acute
[2016-03-17] MEDS ORDERED: BACLOFEN 10 MG TAB PO PRN (18:04)
[2016-03-17] MEDS: diphenhydrAMINE 25 MG CAP PO SCH (21:02)
[2016-03-18] MEDS: HYDROmorphONE/DILAUDID 1 MG/ML SYR IVP PRN ×4 (00:42→08:44)
[2016-03-18] MEDS: HEPARIN 5,000 UNIT/0.5 ML SYR SC SCH ×3 (04:34→21:13)
[2016-03-18 05:07] LABS: ADD MORPH? NO; ADD SCAN? YES; ATYPICAL LYMPHOCYTE FLAG 30 (0-99); FRAGMENT RBC FLAG 0 (0-99); HEMATOCRIT 24.3 % (40.0-51.0); HEMOGLOBIN 8.2 g/dL (13.7-17.5); LEFT SHIFT FLG 20 (0-99); LIPEMIA HEMOLYSIS FLAG 80 (0-99); MEAN CELL HEMOGLOBIN 31.9 pg (27.9-34.1); MEAN CELL HEMOGLOBIN CONCENTR. 33.7 g/dL (32.4-36.7); MEAN CELL VOLUME 94.6 fL (81.5-99.8); MEAN PLATELET VOLUME 9.1 fL (8.7-11.7); PLATELET CLUMPS FLAG 10 (0-99); PLATELET COUNT 316 10^3/uL (150-400); RED BLOOD CELL COUNT 2.57 10^6/uL (4.40-6.38); RED CELL DISTRIBUTION WIDTH 14.6 % (11.5-15.2)
[2016-03-18 05:21] LABS: ALANINE AMINOTRANSFERASE 41 IU/L (21-72); ALKALINE PHOSPHATASE 65 IU/L (38-126); ANION GAP 10 mEq/L (8-16); ASPARTATE AMINOTRANSFERASE 30 IU/L (17-59); BILIRUBIN,TOTAL 0.5 mg/dL (0.1-1.4); CALCIUM 7.5 mg/dL (8.5-10.4); CARBON DIOXIDE 23 mEq/l (22-31); CHLORIDE 117 mEq/L (97-110); CREATININE 1.4 mg/dL (0.7-1.3); GLOMERULAR FILTRATION RATE 49; GLUCOSE 141 mg/dL (70-100); POTASSIUM 3.7 mEq/L (3.5-5.2); SODIUM 150 mEq/L (134-144); TOTAL PROTEIN 4.8 g/dL (6.3-8.2)
[2016-03-18 05:39] LABS: ADD DIFF? YES; SCAN POSITIVE
[2016-03-18 05:47] LABS: MACROCYTES 1+; PLATELET ESTIMATE ADEQUATE (ADEQ)
[2016-03-18] MEDS ORDERED: chlorproMAZINE HCL 25 MG TAB PO PRN (08:23)
[2016-03-18] MEDS: D5W 1,000 ML IV SCH (08:45)
[2016-03-18] MEDS: cefTRIAXone 2 GM in D5W 50 ML IV SCH (08:46)
[2016-03-18] MEDS: FLUCONAZOLE/NaCl 200 ML IV SCH (09:46)
--- NOTE | 2016-03-18 09:47 | DX ---
Single View Abdomen 0940 hours History: Nasogastric tube placement. Findings: Nasogastric tube has the tip in the gastric fundus within the hiatal hernia region. Multiple catheters overlying the right and left chest wall and upper abdomen. Some contrast noted in the right colon. Poor inspiratory phase with bilateral lower lobe partial atelectasis. Impression: Nasogastric tube in the gastric fundus within the hiatal hernia.
[2016-03-18] MEDS: HYDROmorphONE/DILAUDID 6 MG/30 ML PCA IV PRN (10:25)
--- NOTE | 2016-03-18 11:03 | SOAPPROG ---
SOAP Progress Note Assessment/Plan: Assessment/Plan - 81yo M POD#3 ex-lap, repair duodenal perf, omental patch, J-tube - VSS, HDS. Pain appears well controlled with DPCA - Removed NGT overnight, given that this is only POD#3 will replace and cont to LIWS - CHARLIE to bulb suction, non-bilious. Reassuring - Tolerating elemental feeds via J tube at 30cc/Hr. Will cont these - BID protonix - BS Abx - Overall doing well. If continues to progress will likely plan for swallow eval next week, but will need to remain strict NPO until that time 03/16/16 13:25 03/18/16 11:00 Subjective: Had some confusion overnight, self d/c'd NGT. Otherwise doing well Objective: Vital Signs Temp Pulse Resp BP Pulse Ox 36.8 C 81 14 122/69 H 96 03/18/16 07:31 03/18/16 07:31 03/18/16 07:31 03/18/16 07:31 03/18/16 07:31 Laboratory Results 03/18/16 04:46 03/18/16 04:46 03/17/16 03/18/16 03/19/16 05:59 05:59 05:59 Intake Total 875357 1224 Output Total 535 1251 240 Balance 237818 1701 -240 Physical Exam - Physical Exam General Appearance: WD/WN, alert, no apparent distress Neck: non-tender, full range of motion, supple, normal inspection Respiratory: chest non-tender, lungs clear, normal breath sounds Cardiac/Chest: normal peripheral pulses, regular rate, rhythm Abdomen: other (soft, aTTP, incision open to air and c/d/i. J tube site c/d/i, CHARLIE serosang. ) ICD10 Worksheet Patient Problems: Problems Problem Status Diagnosed Hypoxia Acute Pneumonia Acute
[2016-03-18] MEDS ORDERED: MAGNESIUM HYDROXIDE 30 ML UDCUP TUBE PRN (11:51)
[2016-03-18] MEDS ORDERED: BISACODYL 10 MG SUPP PR PRN (11:51)
[2016-03-18] MEDS ORDERED: POLYETHYLENE GLYCOL 3350 17 GM PKT TUBE PRN (11:51)
[2016-03-18] MEDS ORDERED: LACTULOSE 20 GM/30 ML UDCUP TUBE PRN (11:51)
[2016-03-18] MEDS ORDERED: HYDROmorphONE/DILAUDID 2 MG TAB TUBE PRN (11:53)
--- NOTE | 2016-03-18 11:54 | HOSPPROG ---
Hospitalist Progress Note Assessment/Plan: INTERVAL SUMMARY & DAILY PROGRESS NOTE DATE OF ADMISSION: 03/07/2016 INTERVAL DIAGNOSES 1. Sepsis 2. E coli bacteremia 3. Acute duodenal perforation 4. Anticipated postoperative ileus 5. Acute pancreatitis 6. Acute lower extremity edema 7. Atelectasis 8. Acute kidney injury 9. Anemia 10. Gastroesophageal reflux disease CONSULTATIONS 1. Gastroenterology 2. Infectious disease 3. General surgery by Dr. Dunbar PROCEDURES / IMAGING ERCP with biliary stone removal 03/12/2016, exploratory laparotomy with duodenal perforation closure CHIEF COMPLAINT Acute abdominal pain SUBJECTIVE Patient accidentally pulled out his nasogastric tube last night, he had a very restless night with poor sleep, lower extremity edema continues, has not had any bowel movements HOSPITAL COURSE BY PROBLEM Patient was admitted with E coli bacteremia secondary to coli toe lithiasis, status post ERCP stone removal, complicated by duodenal perforation, requiring exploratory laparotomy surgical repair, complicated by postoperative ileus. The patient has yet to move his bowels, we are slowly advancing his J tube feeds under the direction General surgery, he is experiencing a degree of urinary retention, we are attempting to manage his pain without causing toxic encephalopathy. Assessment/Plan: 81 y/o male p/w sepsis in setting of E. coli bacteremia, c/b duodenal perforation, acute pancreatitis, ileus # Sepsis. Evidenced by tachypnea + tachycardia + leukocytosis + infection ( bacteremia), resulting in autonomic dysregulation in setting of infxn - s/p IVF and Abx # E. coli bacteremia. Likely 2/2 choledolithiasis - s/p ERCP 03/12, stones removed, needs repeat in 6 weeks. - initially IV CTX, then broadened s/p duodenal perf - d/w Dr. Silverman, adjusted back to CTX and fluconazole, 2 weeks from neg cx date # Duodenal perforation. Evidenced by free air on CT, s/p ex lap by Dr. Dunbar 03/15/16 - POD#3 # Ileus. Anticipated post-op, acute, no flatus or BMs this AM - TF at trickle (advanced to 30ml/hr per Dr. Dunbar) - adding liq bowel regimen via J-tube # Acute pancreatitis. Occurred post-ERCP w/ stone removal - continue IV hydration - added tube dilaudid, cont [employer] for breakthrough - use low dose Rx, patient at risk for toxic encephalopathy # LE edema. Likely 2/2 IVF, dimer elevated, LE US neg 03/11 - cont JIMMY hose - initiating lasix 20mg IV daily, monitor strict I/O, increase if needed - monitor lytes # Atelectasis. 2/2 immobility and intra-abd perf - cont IS and supp o2 # MILLA. 2/2 hypovolemia, s/p IVF creat improving - Cr downtrending # Anemia. No signs of GI bleeding or acute blood loss - has + heme stool - off ASA - PCP is in [place]/ he needs to get f/u with a colonoscopy # GERD. Cont tums and PPI # Hypernatremia. 2/2 poor free water intake - ideally should have free water boluses via J-tube, but holding given ongoing ileus - low rate D5W at 50cc/hr # BPH. Causing a degree of urinary retention, currently able to void 200cc w/ 400cc PVR - attempt to manage w/o inserting amado - start flomax via J-tube - cont monitoring PVR w/ bladder scan Diet. TF, advanced under the direction General surgery Prophylaxis. High risk patient, heparin subcu Code. Full Disposition. Anticipated discharge uncertain this time, patient has yet to reach clinical stabilization with recent duodenal perforation Subjective: Reports he is feeling somewhat cognitively scattered, no bowel movements, lower level of abdominal discomfort Objective: Vital Signs Temp Pulse Resp BP Pulse Ox 36.8 C 81 14 122/69 H 95 03/18/16 07:31 03/18/16 07:31 03/18/16 07:31 03/18/16 07:31 03/18/16 10:45 Laboratory Results 03/18/16 04:46 03/18/16 04:46 03/17/16 03/18/16 03/19/16 05:59 05:59 05:59 Intake Total 955006 3204 Output Total 535 1251 240 Balance 830743 8933 -240 - Time Spent With Patient Time Spent with Patient: greater than 35 minutes Time Spent with Patient: Greater than 35 minutes spent on this patients care, greater than 50% of time spent counseling, educating, and coordinating care regarding the above mentioned plan. - Physical Exam Constitutional: no apparent distress, not in pain, uncomfortable Cardiovascular: regular rate and rhythym, no murmur, rub, or gallop, edema (1+ bilateral lower extremities) Respiratory: no respiratory distress, no rales or rhonchi, clear to auscultation Gastrointestinal: tenderness (Midepigastric area), distension (Moderately), No normoactive bowel sounds (Hypoactive), No guarding Neurologic: AAOx3, sensation intact bilaterally, No facial droop Psychiatric: anxious, other (Concentration 7/7, potential but redirectable), No agitated ICD10 Worksheet Patient Problems: Problems Problem Status Diagnosed Hypoxia Acute Pneumonia Acute
--- NOTE | 2016-03-18 14:08 | SOAPPROG ---
SOAP Progress Note Assessment/Plan: Assessment: 1. Choledocholithiasis s/p ERC with stone removal and stenting 2. Abdominal pain RUQ/RLQ 3. E.coli sepsis 4. Post-ERC pancreatitis 5. Duodenal perforation- POD 2 6. Edematous 7. Renal insufficiency Plan: 1. Renal U/S to rule out hydronephrosis from bladder outlet obstruction from BPH 2. Continue to monitor post-void residuals and UOP in the setting of starting lasix for edema 3. NPO 4. Stop all constipating and non-essential meds (baclofen, thorazine, calcium, benadryl) 5. Miralax 17gm daily 6. BID PPI 7. TF per J-tube at goal 8. Monitor LFTs intermittently with biliary stents to insure functioning. 03/18/16 14:05 Subjective: CC: Confused last PM No BM Abdominal pain continues Objective: Vital Signs Temp Pulse Resp BP Pulse Ox 37.7 C 94 14 134/76 H 97 03/18/16 13:51 03/18/16 13:51 03/18/16 13:51 03/18/16 13:51 03/18/16 13:51 Laboratory Results 03/18/16 04:46 03/18/16 04:46 03/17/16 03/18/16 03/19/16 05:59 05:59 05:59 Intake Total 020750 5023 Output Total 535 1251 240 Balance 107290 3376 -240 Physical Exam - Physical Exam General Appearance: mild distress EENT: other (NG clamped) Neck: supple Respiratory: lungs clear Cardiac/Chest: regular rate, rhythm, systolic murmur Abdomen: soft, distended, other (Absent bowel sounds. Midline dressing c/d/i), No guarding, No rebound, No ascites Extremities: pedal edema, swelling, No Daisy's sign ICD10 Worksheet Patient Problems: Problems Problem Status Diagnosed Hypoxia Acute Pneumonia Acute
[2016-03-18] MEDS: SENNOSIDES 17.6 MG/10 ML UDL TUBE SCH ×2 (15:02→21:13)
[2016-03-18] MEDS: FUROSEMIDE 20 MG/2 ML VIAL IVP SCH (15:02)
[2016-03-18] MEDS: TAMSULOSIN HCL 0.4 MG CAP PO SCH (15:02)
[2016-03-18] MEDS: PANTOPRAZOLE SODIUM 40 MG in NS 100 ML IV SCH ×2 (15:03→21:13)
--- NOTE | 2016-03-18 15:21 | PCMIDPN ---
Assessment/Plan: Assessment: E coli bacteremia-source likely the biliary tract as a high burden of common bile duct stones and debris were discovered and removed on ERCP. Still more to go -- will have repeat ERCP in approximately 6 weeks. Patient developed acute pancreatitis following the procedure. Also developed a duodenal perforation. Patient initially had antibiotics broadened but now back on ceftriaxone of fluconazole. He is on enteral feeds. Would continue both ceftriaxone and fluconazole for 14-28 days post surgery. Plan: 1. Continue intravenous ceftriaxone and fluconazole for 14-28 days postop. 2. Follow clinical course. Subjective: Patient is resting in his hospital bed. He is in good spirits but somewhat unhappy about his circumstance. No fevers or chills. Tolerating antibiotics without rash or diarrhea. No flatus. No BM. Objective: Ceftriaxone #3 Fluconazole #3 Vital Signs Temp Pulse Resp BP Pulse Ox 37.7 C 94 14 134/76 H 97 03/18/16 13:51 03/18/16 13:51 03/18/16 13:51 03/18/16 13:51 03/18/16 13:51 Laboratory Results 03/18/16 04:46 03/18/16 04:46 03/17/16 03/18/16 03/19/16 05:59 05:59 05:59 Intake Total 756646 0360 Output Total 535 1251 240 Balance 865158 3040 -240 - Physical Exam General Appearance: WD/WN, alert, no apparent distress, non-toxic Respiratory: lungs clear, normal breath sounds, No respiratory distress Cardiac/Chest: regular rate, rhythm, No tachycardia Extremities: non-tender, normal inspection Skin: normal color, warm/dry, No rash Neuro/Psych: alert, normal mood/affect, oriented x 3 ICD10 Worksheet Patient Problems: Problems Problem Status Diagnosed Hypoxia Acute Pneumonia Acute
--- NOTE | 2016-03-18 18:25 | US ---
Renal Sonography (retroperitoneal complete) History: Evaluate for hydronephrosis, distended urinary bladder Comparison: CT March 15 Findings: The study is difficult due to right retroperitoneal gas and abdominal bowel gas. There is m ild right and moderate left hydronephrosis, concordant with the recent CT. The urinary bladder is muc h more distended than it was on the prior CT with a current volume of approximately 855 mL. The patie nt could not void. A right ureteral jet is identified in the urinary bladder. The left is not. Impression: 1. Distended urinary bladder with the patient unable to void. Might this patient benefit from a Wesley catheter? 2. Mild right and moderate left hydronephrosis. Perhaps reevaluation of the kidneys would be useful a fter the urinary bladder is decompressed.
[2016-03-18] MEDS: ACETAMINOPHEN 650 MG/20.3 ML UDCUP PO PRN (19:38)
[2016-03-19] MEDS: HEPARIN 5,000 UNIT/0.5 ML SYR SC SCH ×3 (05:17→21:31)
[2016-03-19 05:42] LABS: % IMMATURE GRANULYOCYTES 1.6 % (0.0-1.1); ABSOLUTE IMMATURE GRANULOCYTES 0.17 10^3/uL (0.00-0.10); ADD DIFF? NO; ADD MORPH? NO; ADD SCAN? NO; ATYPICAL LYMPHOCYTE FLAG 40 (0-99); FRAGMENT RBC FLAG 0 (0-99); HEMATOCRIT 25.5 % (40.0-51.0); HEMOGLOBIN 8.3 g/dL (13.7-17.5); LEFT SHIFT FLG 60 (0-99); LIPEMIA HEMOLYSIS FLAG 80 (0-99); MEAN CELL HEMOGLOBIN 31.8 pg (27.9-34.1); MEAN CELL HEMOGLOBIN CONCENTR. 32.5 g/dL (32.4-36.7); MEAN CELL VOLUME 97.7 fL (81.5-99.8); MEAN PLATELET VOLUME 9.5 fL (8.7-11.7); PLATELET CLUMPS FLAG 0 (0-99); PLATELET COUNT 361 10^3/uL (150-400); RED BLOOD CELL COUNT 2.61 10^6/uL (4.40-6.38); RED CELL DISTRIBUTION WIDTH 14.7 % (11.5-15.2)
[2016-03-19 05:44] LABS: ALANINE AMINOTRANSFERASE 36 IU/L (21-72); ALBUMIN 2.3 g/dL (3.5-5.0); ALKALINE PHOSPHATASE 71 IU/L (38-126); ANION GAP 9 mEq/L (8-16); ASPARTATE AMINOTRANSFERASE 25 IU/L (17-59); BILIRUBIN,TOTAL 0.5 mg/dL (0.1-1.4); CALCIUM 7.6 mg/dL (8.5-10.4); CARBON DIOXIDE 26 mEq/l (22-31); CHLORIDE 114 mEq/L (97-110); CREATININE 1.9 mg/dL (0.7-1.3); GLOMERULAR FILTRATION RATE 34; GLUCOSE 124 mg/dL (70-100); POTASSIUM 3.6 mEq/L (3.5-5.2); SODIUM 149 mEq/L (134-144)
[2016-03-19] MEDS: D5W 1,000 ML IV SCH (06:36)
[2016-03-19] MEDS: FUROSEMIDE 20 MG/2 ML VIAL IVP SCH (09:31)
[2016-03-19] MEDS: TAMSULOSIN HCL 0.4 MG CAP PO SCH (09:33)
[2016-03-19] MEDS: PANTOPRAZOLE SODIUM 40 MG in NS 100 ML IV SCH ×2 (09:33→21:30)
[2016-03-19] MEDS: SENNOSIDES 17.6 MG/10 ML UDL TUBE SCH ×2 (09:33→21:31)
[2016-03-19] MEDS: cefTRIAXone 2 GM in D5W 50 ML IV SCH (09:33)
--- NOTE | 2016-03-19 10:45 | PCMIDPN ---
Assessment/Plan: #Davis-S E coli bacteremia, multiple choledochal stones s/p ERCP. 03/09 blood cx demonstrate clearance. Will be at 2 weeks of therapy at 03/21/16 --continue antibiotics for DU perf as described below # DU perf with obvious intra-abdominal spillage. No intra-op cultures to base therapy, will continue coverage for GNR, yeast for DU perf. Still with mild ileus although did have a BM yesterday. Low-grade temperature overnight, WBC stable. --Continue ceftriaxone, fluconazole, continue IV for now. Recognize Gap in therapy is Enterococcus and anaerobes # Acute renal failure: Creatinine is increasing today. CrCl 38 Noted distended bladder and hydronephrosis on ultrasound overnight. Requested bladder scan this a.m. and will contact hospitalist --reduce dose of fluconazole to 200mg based on CrCl Meds ceftriaxone 2gm IV daily, 03/07-03/15, 03/18, #5 Fluconazole 400 mg IV daily, # 2 (antifungal, #4) Subjective: Patient is more down today. Was not able to walk as far with physical therapy today. Daughter and granddaughter are at bedside Objective: Vital Signs Temp Pulse Resp BP Pulse Ox 36.9 C 83 16 146/80 H 99 03/19/16 07:58 03/19/16 07:58 03/19/16 07:58 03/19/16 07:58 03/19/16 07:58 Laboratory Results 03/19/16 05:02 03/19/16 05:02 03/18/16 03/19/16 03/20/16 05:59 05:59 05:59 Intake Total 2414 2082 Output Total 1251 891 Balance 1163 1191 - Physical Exam General Appearance: alert, no apparent distress EENT: pharynx normal, NG Tube Respiratory: lungs clear, No accessory muscle use Cardiac/Chest: regular rate, rhythm Extremities: pedal edema Abdomen: distended, other (CHARLIE drain with serosanguineous fluid, feeding tube in place), No normal bowel sounds (Bowel sounds present but generally low) Pelvic Exam: No amado Male Genitalia: other (mild suprapubic tenderness) Skin: pallor, No rash Neuro/Psych: alert, oriented x 3, depressed affect - Time Spent With Patient Time Spent with Patient: greater than 35 minutes (coordination of care with surgery, GI, hospitalists) Time Spent with Patient: Greater than 35 minutes spent on this patients care, greater than 50% of time spent counseling, educating, and coordinating care regarding the above mentioned plan. ICD10 Worksheet Patient Problems: Problems Problem Status Diagnosed Hypoxia Acute Pneumonia Acute
--- NOTE | 2016-03-19 11:59 | SOAPPROG ---
SOAP Progress Note Assessment/Plan: Assessment: 1. Choledocholithiasis s/p ERC with stone removal and stenting 2. Abdominal pain RUQ/RLQ 3. E.coli sepsis 4. Post-ERC pancreatitis 5. Duodenal perforation- POD 2 6. Edematous 7. Renal insufficiency Plan: 1. Wesley today due to findings on U/S showing hydroneprhosis and distended bladder with 850cc 2. NG to LIWS 3. Stop lactulose and increase miralax as laxative choice. I am worried the lacutlose may be fermentable and increase gaseous distention 4. NPO 5. Hopefully he will continue to improve. 03/19/16 11:55 Subjective: CC: Feels weak today Ongoing abdominal pain Reports sore throat ongoing. Probably NG tube discomfort Objective: Vital Signs Temp Pulse Resp BP Pulse Ox 36.9 C 83 16 146/80 H 99 03/19/16 07:58 03/19/16 07:58 03/19/16 07:58 03/19/16 07:58 03/19/16 07:58 Laboratory Results 03/19/16 05:02 03/19/16 05:02 03/18/16 03/19/16 03/20/16 05:59 05:59 05:59 Intake Total 2414 2082 Output Total 1251 891 Balance 1163 1191 Physical Exam - Physical Exam General Appearance: mild distress EENT: other (NG tube to LIWS) Neck: supple Respiratory: lungs clear, decreased breath sounds Cardiac/Chest: regular rate, rhythm, No tachycardia Abdomen: distended, other (Very hypoactive bowel sounds. Midline staple line intact. Wound clean and without drainage. CHARLIE bulb with scant serous output. J- tube site normal.) Skin: warm/dry, No cyanosis, No mottled Extremities: pedal edema, swelling Neuro/Psych: alert, oriented x 3 ICD10 Worksheet Patient Problems: Problems Problem Status Diagnosed Hypoxia Acute Pneumonia Acute
[2016-03-19] MEDS ORDERED: LIDOCAINE 2% VISCOUS 15 ML UDCUP PO PRN (12:00)
--- NOTE | 2016-03-19 12:13 | SOAPPROG ---
SOAP Progress Note Assessment/Plan: Assessment/Plan - 81yo M POD#4 ex-lap, repair duodenal perf, omental patch, J-tube - VSS, HDS. Pain appears well controlled with DPCA - NGT with minimal output over last 24hrs, if continues to have minimal to no output will d/c tomorrow. Will still remain strict NPO until next week - CHARLIE to bulb suction, non-bilious. Reassuring - Increasing Cr today, bladder scan with 900cc, amado replaced, Cr will hopefully normalize - Some bowel sounds, abd minimally distended. Cont J tube feeds at 30cc/Hr until he has more robust bowel function. May need more free H20 given Na bump as well, will defer to IM - BID protonix, BS Abx - Continue to make progress, still no signs of blow out of repair. Will likely d /c NGT tomorrow, swallow next week if doing ok 03/16/16 13:25 03/18/16 11:00 03/19/16 12:10 Subjective: Some abd pain, having flatus and BMs Objective: Vital Signs Temp Pulse Resp BP Pulse Ox 36.9 C 83 16 146/80 H 99 03/19/16 07:58 03/19/16 07:58 03/19/16 07:58 03/19/16 07:58 03/19/16 07:58 Laboratory Results 03/19/16 05:02 03/19/16 05:02 03/18/16 03/19/16 03/20/16 05:59 05:59 05:59 Intake Total 2501 2782 Output Total 1251 891 Balance 1163 1191 ICD10 Worksheet Patient Problems: Problems Problem Status Diagnosed Hypoxia Acute Pneumonia Acute
[2016-03-19] MEDS: HYDROmorphONE/DILAUDID 6 MG/30 ML PCA IV PRN (12:48)
--- NOTE | 2016-03-19 15:37 | HOSPPROG ---
Hospitalist Progress Note Assessment/Plan: 81 yo M with hx of sepsis/e coli bacteremia and duodenal perforation # sepsis: now resolved, in setting of below # e coli bacteremia: with biliary source, with CBD stones, continue ctx/ fluconazole # duodenal perforation: s/p ex lap and repair of perf, with omental patch # acute pancreatitis/choledocholithiasis: s/p ERCP and stone removal as well as stenting # ileus: bowel sounds returning, J tube feeds # severe protein calorie malnutrition: in setting of above, dietary following # megan: with hx of BPH and creatinine continuing to increase, catheter placed for urinary retention likely contributing # anemia: continues to trend down, monitoring, in setting of sepsis/malnutrition # hypernatremia: receiving d5, has been stable # dispo: IP status, likely need several more days in house Care plan reviewed with ID including plans for catheter placement Subjective: no significant overnight events, amado placed this am Objective: Vital Signs Temp Pulse Resp BP Pulse Ox 36.9 C 83 16 146/80 H 95 03/19/16 07:58 03/19/16 07:58 03/19/16 07:58 03/19/16 07:58 03/19/16 09:35 Laboratory Results 03/19/16 05:02 03/19/16 05:02 03/18/16 03/19/16 03/20/16 05:59 05:59 05:59 Intake Total 2414 2082 Output Total 7327 508 2400 Balance 1163 1191 -1200 awake alert anicteric rrr no mrg cta b soft dec bs no cce ICD10 Worksheet Patient Problems: Problems Problem Status Diagnosed Hypoxia Acute Pneumonia Acute
[2016-03-19] MEDS: FLUCONAZOLE/NaCl 100 ML IV SCH (16:31)
[2016-03-19] MEDS: FLUCONAZOLE/NaCl 200 ML IV SCH (18:39)
[2016-03-19] MEDS: POLYETHYLENE GLYCOL 3350 17 GM PKT TUBE SCH (21:31)
[2016-03-19] MEDS: NYSTATIN SUSP 500000 UNIT/5 ML UDCUP PO SCH (23:21)
[2016-03-20] MEDS: D5W 1,000 ML IV SCH (04:27)
[2016-03-20 04:46] LABS: ADD DIFF? NO; ADD MORPH? NO; ADD SCAN? NO; ATYPICAL LYMPHOCYTE FLAG 30 (0-99); FRAGMENT RBC FLAG 0 (0-99); HEMATOCRIT 24.5 % (40.0-51.0); HEMOGLOBIN 8.2 g/dL (13.7-17.5); LEFT SHIFT FLG 60 (0-99); LIPEMIA HEMOLYSIS FLAG 80 (0-99); MEAN CELL HEMOGLOBIN 31.1 pg (27.9-34.1); MEAN CELL HEMOGLOBIN CONCENTR. 33.5 g/dL (32.4-36.7); MEAN CELL VOLUME 92.8 fL (81.5-99.8); MEAN PLATELET VOLUME 9.2 fL (8.7-11.7); PLATELET CLUMPS FLAG 0 (0-99); PLATELET COUNT 321 10^3/uL (150-400); RED BLOOD CELL COUNT 2.64 10^6/uL (4.40-6.38); RED CELL DISTRIBUTION WIDTH 14.7 % (11.5-15.2)
[2016-03-20 05:09] LABS: ANION GAP 9 mEq/L (8-16); CALCIUM 7.6 mg/dL (8.5-10.4); CARBON DIOXIDE 26 mEq/l (22-31); CHLORIDE 112 mEq/L (97-110); CREATININE 1.8 mg/dL (0.7-1.3); GLOMERULAR FILTRATION RATE 37; GLUCOSE 131 mg/dL (70-100); POTASSIUM 3.3 mEq/L (3.5-5.2); SODIUM 147 mEq/L (134-144)
[2016-03-20] MEDS: HEPARIN 5,000 UNIT/0.5 ML SYR SC SCH ×3 (05:22→21:10)
[2016-03-20] MEDS: NYSTATIN SUSP 500000 UNIT/5 ML UDCUP PO SCH ×4 (05:22→20:02)
[2016-03-20] MEDS: cefTRIAXone 2 GM in D5W 50 ML IV SCH (08:07)
[2016-03-20] MEDS ORDERED: FLUCONAZOLE/NaCl 100 ML IV SCH (09:00)
--- NOTE | 2016-03-20 09:20 | SOAPPROG ---
SOAP Progress Note Assessment/Plan: Assessment: 81 yo male s/p duodenal perf repair had more pain this AM per granddaughter, passing gas, ambulated 3x yesterday. PE awake alert comfortable incision and drain/feeding tube site clean/dry no erythema Plan: NG tube removed today without complication keep NPO 03/20/16 09:18 Objective: Vital Signs Temp Pulse Resp BP Pulse Ox 36.9 C 83 18 144/91 H 95 03/20/16 07:12 03/20/16 07:12 03/20/16 07:12 03/20/16 07:12 03/20/16 07:12 Laboratory Results 03/20/16 04:28 03/20/16 04:28 03/19/16 03/20/16 03/21/16 05:59 05:59 05:59 Intake Total 2 Output Total 891 2200 Balance 1191 -2200 ICD10 Worksheet Patient Problems: Problems Problem Status Diagnosed Hypoxia Acute Pneumonia Acute
[2016-03-20] MEDS: PANTOPRAZOLE SODIUM 40 MG in NS 100 ML IV SCH ×2 (09:41→20:03)
[2016-03-20] MEDS: POLYETHYLENE GLYCOL 3350 17 GM PKT TUBE SCH ×2 (10:58→20:04)
[2016-03-20] MEDS: SENNOSIDES 17.6 MG/10 ML UDL TUBE SCH ×2 (10:58→20:02)
[2016-03-20] MEDS: TAMSULOSIN HCL 0.4 MG CAP PO SCH (10:58)
[2016-03-20] MEDS: FLUCONAZOLE/NaCl 100 ML IV SCH (10:58)
[2016-03-20] MEDS: FUROSEMIDE 20 MG/2 ML VIAL IVP SCH (11:27)
--- NOTE | 2016-03-20 12:36 | SOAPPROG ---
KELLIE Progress Note Assessment/Plan: Assessment:Plan: 1) CBD stones - ERCp and stents 2) Post ERCp pancreatitis - resolving 3) Duodenal perforation - as per surgery, NPO on tube feeds 4) Hydronephrosis - amado cath 5) Renal - Cr down from 1.9 to 1.8 6) E Coli sepsis - as per ID, they are also txing duodenal perf with abx 7) Constipation -Miralax, senna, Dulcolax prn 8) Hiccups - related to irritation vs reflux? 9) Globus sensation - bother him a lot, will be difficult to address, can be from post nasal drip or reflux, on PPI will follow 03/20/16 12:41 Subjective: cc- duodenal perf, CBD stones, E colil sepsis I'm having hiccups and cant clear my throat not worsening, slow improvement Objective: Vital Signs Temp Pulse Resp BP Pulse Ox 37 C 90 20 136/74 H 88 L 03/20/16 11:54 03/20/16 11:54 03/20/16 11:54 03/20/16 11:54 03/20/16 11:54 Laboratory Results 03/20/16 04:28 03/20/16 04:28 03/19/16 03/20/16 03/21/16 05:59 05:59 05:59 Intake Total 2082 Output Total 891 2200 Balance 1191 -2200 A+Ox3 CTA no egophony S1S2, RRR +Bs, soft no rebound Laboratory Tests 03/19/16 03/20/16 05:02 04:28 BUN 26 H 24 H Creatinine 1.9 H 1.8 H ICD10 Worksheet Patient Problems: Problems Problem Status Diagnosed Hypoxia Acute Pneumonia Acute
--- NOTE | 2016-03-20 15:14 | HOSPPROG ---
Hospitalist Progress Note Assessment/Plan: 81 yo M pw sepsis/e coli bacteremia found to be likely 2/2 biliary source with duodenal perforation post ercp # sepsis: now resolved, in setting of below # e coli bacteremia: with biliary source, with CBD stones, continue ctx/ fluconazole. ID following, repeat cultures negative # duodenal perforation: s/p ex lap and repair of perf, with omental patch. NG removed. Abd pain increased or changed per patients daughter, exam is reassuring abd soft, bs decreased, incision cdi. # acute pancreatitis/choledocholithiasis: s/p ERCP and stone removal as well as stenting. Will need stent removal at some point after dc # ileus: bowel sounds returning, J tube feeds # severe protein calorie malnutrition: in setting of above, dietary following # megan on ckd: with hx of BPH and creatinine increasing with urinary retention present, creat now trending down, good uop # anemia: continues to trend down, monitoring, in setting of sepsis/malnutrition # hypernatremia: receiving d5, has been stable # dispo: IP status, likely need several more days in house further hx obtained from patients daughter and grand daughter present at bedside Subjective: no significant overnight events, patient is having more pain on the right side of his abdomen, his throat is sore after ng tube removed Objective: Vital Signs Temp Pulse Resp BP Pulse Ox 37 C 85 18 122/86 H 93 03/20/16 13:58 03/20/16 13:58 03/20/16 13:58 03/20/16 13:58 03/20/16 13:58 Laboratory Results 03/20/16 04:28 03/20/16 04:28 03/19/16 03/20/16 03/21/16 05:59 05:59 05:59 Intake Total 2 Output Total 891 2200 Balance 1191 -2200 awake alert nad anicteric op clear rrr no mrg cta b, dec at bases soft, bs decreased, incision cdi, drain w/serosang op ble edema warm dry well perfused oriented appropriate - Time Spent With Patient Time Spent with Patient: greater than 35 minutes Time Spent with Patient: Greater than 35 minutes spent on this patients care, greater than 50% of time spent counseling, educating, and coordinating care regarding the above mentioned plan. ICD10 Worksheet Patient Problems: Problems Problem Status Diagnosed Hypoxia Acute Pneumonia Acute
--- NOTE | 2016-03-20 16:51 | PCMIDPN ---
Assessment/Plan: Assessment/Plan: 1. E. coli sepsis/bacteremia secondary to choledolithiasis, with small duodenal perforation: - s/p repair of duodenum 03/15/16. OP noted reviewed. Bilious stained fluid noted in abdomen. No abscess. - Currently on ceftriaxone , micafungin-atbx broadened due to above -s/p difficult ERCP for stone extraction but will need repeat in 6 weeks. -Post procedure pancreatitis managed by GI/hospitalist team. -negative blood cx from 03/09/16. - wbc slightly improved -new acute abd pain now--with check stat abd series to start. may need f/u Ct if unrevealing and sx persisting. Meds ceftraixone 2g daily- 03/17/16 micafungin 100mg daily--03/15/16 s/p zosyn 3.3.75gm q6 03/15/16-03/17 Subjective: afebrile. c/o intense abd pain on the right side since past 30 min-1 hour. continuous. 9/10 in severity. denies nause. no bm's for days. denies sob. Objective: Vital Signs Temp Pulse Resp BP Pulse Ox 36.8 C 79 18 122/80 H 90 L 03/20/16 15:46 03/20/16 15:46 03/20/16 15:46 03/20/16 15:46 03/20/16 15:46 Laboratory Results 03/20/16 04:28 03/20/16 04:28 03/19/16 03/20/16 03/21/16 05:59 05:59 05:59 Intake Total 2082 Output Total 891 2200 Balance 1191 -2200 - Physical Exam General Appearance: alert, other (in pain) Respiratory: lungs clear Cardiac/Chest: regular rate, rhythm Extremities: No swelling Abdomen: other (bs quiet, distended, very tender to palpation on right side. with guarding. etienne's noted) Male Genitalia: amado Skin: No erythema ICD10 Worksheet Patient Problems: Problems Problem Status Diagnosed Hypoxia Acute Pneumonia Acute
--- NOTE | 2016-03-20 18:36 | DX ---
Two-view abdomen series 1726 hours. History: Right-sided abdominal pain. Evaluate for bowel obstruction. Findings: Comparison to March 18, 2016. There is dilute contrast that appears to be within nondilated large bowel. There are no significant d ilated loops of small bowel. No free air is seen. There are 2 adjacent biliary stents in the right up per quadrant with some gas in the biliary system. Cholecystectomy clips are noted in the right upper quadrant as well as a surgical drain in this region. Percutaneous small bowel feeding tube is seen in the left lower abdomen to upper pelvis region. Soft tissue density in the pelvis could be related to bladder. Osseous structures are unchanged. Impression: 1. No significant new dilated loops of bowel. 2. Biliary stents are seen in the right upper quadrant in stable position. 3. Stable drainage catheter in the right upper quadrant. 4. Percutaneous small bowel tube in stable position. 5. Soft tissue density in the pelvis could be related to distended bladder.
[2016-03-21 05:43] LABS: ADD DIFF? YES; ADD MORPH? NO; ADD SCAN? NO; ATYPICAL LYMPHOCYTE FLAG 40 (0-99); FRAGMENT RBC FLAG 0 (0-99); HEMOGLOBIN 8.4 g/dL (13.7-17.5); LEFT SHIFT FLG 90 (0-99); LIPEMIA HEMOLYSIS FLAG 80 (0-99); MEAN CELL HEMOGLOBIN 30.9 pg (27.9-34.1); MEAN CELL HEMOGLOBIN CONCENTR. 32.3 g/dL (32.4-36.7); MEAN CELL VOLUME 95.6 fL (81.5-99.8); MEAN PLATELET VOLUME 9.2 fL (8.7-11.7); PLATELET CLUMPS FLAG 10 (0-99); PLATELET COUNT 284 10^3/uL (150-400); RED BLOOD CELL COUNT 2.72 10^6/uL (4.40-6.38); RED CELL DISTRIBUTION WIDTH 14.9 % (11.5-15.2)
[2016-03-21] MEDS: D5W 1,000 ML IV SCH ×2 (05:50→05:58)
[2016-03-21] MEDS: HEPARIN 5,000 UNIT/0.5 ML SYR SC SCH ×3 (05:58→21:20)
[2016-03-21] MEDS: NYSTATIN SUSP 500000 UNIT/5 ML UDCUP PO SCH ×4 (05:58→21:20)
[2016-03-21 06:13] LABS: ANION GAP 7 mEq/L (8-16); CALCIUM 7.3 mg/dL (8.5-10.4); CARBON DIOXIDE 28 mEq/l (22-31); CHLORIDE 109 mEq/L (97-110); CREATININE 1.6 mg/dL (0.7-1.3); GLOMERULAR FILTRATION RATE 42; GLUCOSE 122 mg/dL (70-100); POTASSIUM 3.6 mEq/L (3.5-5.2); SODIUM 144 mEq/L (134-144)
[2016-03-21 07:27] LABS: GIANT PLATELETS PRESENT; LARGE PLATELETS PRESENT; PLATELET ESTIMATE ADEQUATE (ADEQ); POLYCHROMASIA 1+; TOXIC GRANULATION PRESENT
[2016-03-21] MEDS: cefTRIAXone 2 GM in D5W 50 ML IV SCH (08:32)
[2016-03-21] MEDS: SENNOSIDES 17.6 MG/10 ML UDL TUBE SCH ×2 (09:31→21:20)
[2016-03-21] MEDS: POLYETHYLENE GLYCOL 3350 17 GM PKT TUBE SCH ×2 (09:31→21:19)
[2016-03-21] MEDS: PANTOPRAZOLE SODIUM 40 MG in NS 100 ML IV SCH ×2 (09:32→21:19)
[2016-03-21] MEDS: TAMSULOSIN HCL 0.4 MG CAP PO SCH (09:32)
--- NOTE | 2016-03-21 10:02 | SOAPPROG ---
SOAP Progress Note Assessment/Plan: Assessment: 81 yo male s/p duodenal perf repair had more pain this AM per granddaughter, passing gas, ambulated 3x yesterday. PE awake alert comfortable incision and drain/feeding tube site clean/dry no erythema Plan: NG tube removed today without complication keep NPO 03/20/16 09:18 03/21/16 09:59 feels little better than yesterday, less ab pain, hiccups are most bothersome thing and would like to go home. Passing gas but no BM yet. PE in chair, comfortable, nontoxic appearance abdomen distended, feeding tube in place, drain in place. stapled incision clean /dry soft nontender to palpation Plan keep NPO may get swallow study tomorrow, will discuss with Dr Dunbar. Objective: Vital Signs Temp Pulse Resp BP Pulse Ox 37.0 C 92 20 134/82 H 95 03/21/16 07:37 03/21/16 07:37 03/21/16 07:37 03/21/16 07:37 03/21/16 07:37 Laboratory Results 03/21/16 05:18 03/21/16 05:18 03/20/16 03/21/16 03/22/16 05:59 05:59 05:59 Intake Total 2377 1140 Output Total 2200 1240 40 Balance -2200 1137 1100 ICD10 Worksheet Patient Problems: Problems Problem Status Diagnosed Hypoxia Acute Pneumonia Acute
[2016-03-21] MEDS: FLUCONAZOLE/NaCl 100 ML IV SCH (10:54)
[2016-03-21] MEDS: ONDANSETRON 4 MG/2 ML VIAL IVP PRN (10:55)
--- NOTE | 2016-03-21 13:09 | HOSPPROG ---
Hospitalist Progress Note Assessment/Plan: 81-year-old admitted with fatigue and found to have E coli bacteremia. Further evaluation revealed biliary source with multiple common bile duct stones. He underwent ERCP and stent placement. Several days postprocedure he started having more abdominal distention and eventually was diagnosed with a perforation in the duodenum and underwent exploratory lap and repair of perforation with omental patch. He continues to have abdominal discomfort he is followed by GI, surgery and Infectious Disease. # E coli bacteremia secondary to biliary source complicated by sepsis which has since resolved. Status post ERCP with common bile duct stone removal and stent placement complicated by perforation. * slow postop recovery. * Febrile today would consider repeating CT scan * Will discuss with ID and surgery. * Continue current antibiotics. # duodenal perforation status post exploratory lap and repair of perforation with omental patch. Followed by General surgery. Status post ileus and currently on tube feeds. He did have a BM today of liquid stool. * Check C diff given fever * Consider CT scan, will discuss with General surgery # pancreatitis status post ERCP. Slow improvement will follow # postop ileus status post liquid BM this morning # severe protein calorie malnutrition secondary to above # acute on chronic kidney disease with a history of BPH creatinine 1.6 today will follow # anemia # hypernatremia, resolved Subjective: Patient new to me, chart reviewed. Has ongoing abdominal pain primarily right lower quadrant. Has had a liquid bowel movement this morning and incontinent of stool. Objective: Vital Signs Temp Pulse Resp BP Pulse Ox 37.4 C 123 H 20 123/75 H 92 03/21/16 12:09 03/21/16 12:09 03/21/16 12:09 03/21/16 12:09 03/21/16 12:09 Laboratory Results 03/21/16 05:18 03/21/16 05:18 03/20/16 03/21/16 03/22/16 05:59 05:59 05:59 Intake Total 2377 1140 Output Total 2200 1240 40 Balance -2200 1137 1100 - Physical Exam Constitutional: chronically ill appearing, uncomfortable Eyes: PERRL, EOMI Cardiovascular: regular rate and rhythym, tachycardia Respiratory: no respiratory distress, no rales or rhonchi, clear to auscultation Gastrointestinal: tenderness (Diffuse right lower quadrant greater ), No normoactive bowel sounds (Decrease) Genitourinary: no bladder fullness Skin: warm Musculoskeletal: no joint effusions Neurologic: AAOx3 Psychiatric: depressed, flat affect ICD10 Worksheet Patient Problems: Problems Problem Status Diagnosed Hypoxia Acute Pneumonia Acute
--- NOTE | 2016-03-21 14:00 | PCMIDPN ---
Assessment/Plan: Assessment/Plan: 1. E. coli sepsis/bacteremia secondary to choledolithiasis, with small duodenal perforation: - s/p repair of duodenum 03/15/16. OP noted reviewed. Bilious stained fluid noted in abdomen. No abscess. - Currently on ceftriaxone , micafungin-atbx broadened due to above -s/p difficult ERCP for stone extraction but will need repeat in 6 weeks. -negative blood cx from 03/09/16. - wbc trending up -abd xay with no free air/bowel obstruction. Less abd pain today. Monitor closely -check stools for c. diff. will check blood cx. only has peripheral IV in. -If c. diff neg,but has persistent fevers, will need f/u Ct abd/pelvis to further evaluate. -care coordinated with hospitalist team. Meds ceftraixone 2g daily- 03/17/16 micafungin 100mg daily--03/15/16 s/p zosyn 3.3.75gm q6 03/15/16-03/17 Subjective: febrile to 101 F. had loose stools this am after several days of no bowel movements. On tube feeds and stool softers. King sob,. Less abd pain today compared to yesterday. Was 8/10 in RLQ yesterday, today it is at 2/10. etienne drain with serous drainage. denies nausea. Objective: Vital Signs Temp Pulse Resp BP Pulse Ox 38.8 C H 123 H 20 123/75 H 92 03/21/16 13:10 03/21/16 12:09 03/21/16 12:09 03/21/16 12:09 03/21/16 12:09 Laboratory Results 03/21/16 05:18 03/21/16 05:18 03/20/16 03/21/16 03/22/16 05:59 05:59 05:59 Intake Total 2377 1140 Output Total 2200 1240 40 Balance -2200 1137 1100 - Physical Exam General Appearance: alert, no apparent distress Respiratory: lungs clear Cardiac/Chest: regular rate, rhythm Extremities: swelling Abdomen: other (trickle bowel sounds, less distended overall. mild guarding on RLQ compared to yesterday. etienne drain with serous drainage. no rebound.) ICD10 Worksheet Patient Problems: Problems Problem Status Diagnosed Hypoxia Acute Pneumonia Acute
[2016-03-21 14:12] LABS: ALBUMIN 2.1 g/dL (3.5-5.0); BILIRUBIN,TOTAL 0.4 mg/dL (0.1-1.4); BILIRUBIN-CONJUGATED 0.3 mg/dL (0.0-0.5); BILIRUBIN-UNCONJUGATED 0.1 mg/dL (0.0-1.1)
[2016-03-21] MEDS: ACETAMINOPHEN 650 MG/20.3 ML UDCUP PO PRN (16:12)
[2016-03-21] MEDS ORDERED: IPRATROPIUM/ALBUTEROL 3 ML DEYVIAL IH ONE (18:30)
--- NOTE | 2016-03-21 18:44 | DX ---
Portable Chest, Single View March 21, 2016 18:19 Indication: Shortness of breath. Comparison: Two-view chest dated March 07, 2016 Findings: The lungs are hypoventilated with bibasilar consolidation and probable small bilateral pleu ral effusions. The right hemidiaphragm is asymmetrically elevated. Heart size within normal limit for degree of inspiration. Impression: Hypoventilation with bibasilar consolidation and trace bilateral pleural effusions.
[2016-03-22] MEDS: D5W 1,000 ML IV SCH ×2 (02:51→14:52)
[2016-03-22 05:36] LABS: ABSOLUTE NRBC COUNT 0.02 10^3/uL (0-0.01); ADD DIFF? YES; ADD MORPH? NO; ADD SCAN? NO; ATYPICAL LYMPHOCYTE FLAG 20 (0-99); FRAGMENT RBC FLAG 0 (0-99); HEMATOCRIT 24.5 % (40.0-51.0); HEMOGLOBIN 8.3 g/dL (13.7-17.5); LEFT SHIFT FLG 50 (0-99); LIPEMIA HEMOLYSIS FLAG 90 (0-99); MEAN CELL HEMOGLOBIN 31.7 pg (27.9-34.1); MEAN CELL HEMOGLOBIN CONCENTR. 33.9 g/dL (32.4-36.7); MEAN CELL VOLUME 93.5 fL (81.5-99.8); MEAN PLATELET VOLUME 9.7 fL (8.7-11.7); NRBC-AUTO% 0.1 % (0.0-0.2); PLATELET CLUMPS FLAG 0 (0-99); PLATELET COUNT 264 10^3/uL (150-400); RED BLOOD CELL COUNT 2.62 10^6/uL (4.40-6.38); RED CELL DISTRIBUTION WIDTH 14.9 % (11.5-15.2)
[2016-03-22 05:59] LABS: ANION GAP 7 mEq/L (8-16); CALCIUM 6.7 mg/dL (8.5-10.4); CARBON DIOXIDE 26 mEq/l (22-31); CHLORIDE 103 mEq/L (97-110); CREATININE 1.6 mg/dL (0.7-1.3); GLOMERULAR FILTRATION RATE 42; GLUCOSE 261 mg/dL (70-100); POTASSIUM 3.5 mEq/L (3.5-5.2); SODIUM 136 mEq/L (134-144)
[2016-03-22 06:30] LABS: PLATELET ESTIMATE ADEQUATE (ADEQ); POLYCHROMASIA 1+; TOXIC GRANULATION PRESENT
[2016-03-22] MEDS: HEPARIN 5,000 UNIT/0.5 ML SYR SC SCH ×3 (06:44→22:59)
[2016-03-22] MEDS: NYSTATIN SUSP 500000 UNIT/5 ML UDCUP PO SCH ×4 (06:44→19:59)
[2016-03-22] MEDS ORDERED: IPRATROPIUM/ALBUTEROL 3 ML DEYVIAL IH PRN (09:28)
[2016-03-22] MEDS: cefTRIAXone 2 GM in D5W 50 ML IV SCH (09:33)
[2016-03-22] MEDS: TAMSULOSIN HCL 0.4 MG CAP PO SCH (09:33)
--- NOTE | 2016-03-22 10:14 | SOAPPROG ---
SOAP Progress Note Assessment/Plan: Assessment/Plan - 81yo M POD#7 ex-lap, repair duodenal perf, omental patch, J-tube - fevering, WBC up to 16k today. Abdominal exam remains about the same, is c/o some RLQ pain with activity but distention and overall exam is stable. - CHARLIE 70cc, serosang and nonbilious - Given WBC spike will get CT scan today. Will give PO contrast to eval duodenal sweep, if ok could start clears today - PICC line for LT abx, poss need for TPN in next 24hrs if TFs not tolerated and not taking PO 03/16/16 13:25 03/18/16 11:00 03/19/16 12:10 03/22/16 10:11 Subjective: C/o RLQ pain and diarrhea with the tube feeds. Otherwise about the same Objective: Vital Signs Temp Pulse Resp BP Pulse Ox 36.8 C 119 H 16 109/71 96 03/22/16 08:00 03/22/16 10:05 03/22/16 10:05 03/22/16 10:05 03/22/16 10:05 Laboratory Results 03/22/16 04:47 03/22/16 04:47 03/21/16 03/22/16 03/23/16 05:59 05:59 05:59 Intake Total 2377 1140 Output Total 1240 620 Balance 1137 520 ICD10 Worksheet Patient Problems: Problems Problem Status Diagnosed Hypoxia Acute Pneumonia Acute
[2016-03-22] MEDS: POLYETHYLENE GLYCOL 3350 17 GM PKT TUBE SCH ×2 (10:21→22:07)
[2016-03-22] MEDS: SENNOSIDES 17.6 MG/10 ML UDL TUBE SCH ×2 (10:21→22:07)
[2016-03-22] MEDS: PANTOPRAZOLE SODIUM 40 MG in NS 100 ML IV SCH ×2 (11:03→20:02)
[2016-03-22] MEDS ORDERED: ALTEPLASE 2 MG VIAL IVP PRN (11:37)
[2016-03-22] MEDS: FLUCONAZOLE/NaCl 100 ML IV SCH (11:43)
--- NOTE | 2016-03-22 11:44 | HOSPPROG ---
Hospitalist Progress Note Assessment/Plan: 81-year-old admitted with fatigue and found to have E coli bacteremia. Further evaluation revealed biliary source with multiple common bile duct stones. He underwent ERCP and stent placement. Several days postprocedure he started having more abdominal distention and eventually was diagnosed with a perforation in the duodenum and underwent exploratory lap and repair of perforation with omental patch. He continues to have abdominal discomfort he is followed by GI, surgery and Infectious Disease. # E coli bacteremia secondary to biliary source complicated by sepsis which has since resolved. Status post ERCP with common bile duct stone removal and stent placement complicated by perforation. * slow postop recovery. * Febrile yesterday, discussed with surgery and will order ct * Continue current antibiotics. # duodenal perforation status post exploratory lap and repair of perforation with omental patch. Followed by General surgery. Status post ileus and currently on tube feeds. He did have a BM today of liquid stool. * C diff negative * CT scan today # shortness of breath. Review chest x-ray showing bilateral atelectasis small pleural effusions likely contributing to his symptoms. At risk for PE however patient without chest pain at this time. Unable to perform CT angiogram due to creatinine level * Continue duo nebs given patient past history of tobacco use * Check bilateral lower extremity Dopplers to rule out DVT * IS, patient's symptoms have improved this morning and feels better than yesterday. # pancreatitis status post ERCP. Slow improvement will follow # postop ileus status post liquid BM this morning # severe protein calorie malnutrition secondary to above * Patient discussed with dietary. He needs more nutrition will attempt to increase his tube feeds today if that is unsuccessful would consider TPN tomorrow # acute on chronic kidney disease with a history of BPH creatinine 1.6 today will follow # anemia # hypernatremia, resolved Subjective: Patient continues to have some lower abdominal pain primarily right lower quadrant. Continues to have liquid stools. States his shortness of breath is much better than last evening he was able to ambulate today around the echols and felt pretty good. He has no chest pain. Swelling has improved from yesterday's well. Objective: Vital Signs Temp Pulse Resp BP Pulse Ox 36.8 C 119 H 16 109/71 96 03/22/16 08:00 03/22/16 10:05 03/22/16 10:05 03/22/16 10:05 03/22/16 10:05 Laboratory Results 03/22/16 04:47 03/22/16 04:47 03/21/16 03/22/16 03/23/16 05:59 05:59 05:59 Intake Total 2377 1140 Output Total 1240 620 Balance 1137 520 - Physical Exam Constitutional: chronically ill appearing, uncomfortable Eyes: PERRL, EOMI Ears, Nose, Mouth, Throat: moist mucous membranes Cardiovascular: regular rate and rhythym, no murmur, rub, or gallop Respiratory: no respiratory distress, reduced air movement, No no rales or rhonchi Gastrointestinal: normoactive bowel sounds (Decreased), tenderness, distension, No guarding Genitourinary: amado in urethra Skin: warm, no rashes or abrasions Musculoskeletal: no joint effusions, generalized weakness Neurologic: AAOx3 Psychiatric: interacting appropriately, flat affect Lymph, Heme, Immunologic: no cervical LAD ICD10 Worksheet Patient Problems: Problems Problem Status Diagnosed Hypoxia Acute Pneumonia Acute
[2016-03-22] MEDS: HYDROmorphONE/DILAUDID 6 MG/30 ML PCA IV PRN (11:54)
--- NOTE | 2016-03-22 12:17 | SOAPPROG ---
KELLIE Progress Note Assessment/Plan: Assessment:Plan: 1) CBD stones - ERCp and stents 2) Post ERCp pancreatitis - resolving 3) Duodenal perforation - as per surgery, NPO on tube feeds 4) Hydronephrosis - amado cath 5) Renal - Cr down from 1.9 to 1.8 6) E Coli sepsis - as per ID, they are also txing duodenal perf with abx 7) Constipation -Miralax, senna, Dulcolax prn 8) Hiccups - related to irritation vs reflux? 9) Globus sensation - bother him a lot, will be difficult to address, can be from post nasal drip or reflux, on PPI will follow 03/20/16 12:41 03/22/16 12:02 as above had fever, increased WBC still with RLQ pain for CT today will eval both duodenal patch and for abscess 1) CBD stones - ERCp and stents 2) pancreatitis - resolving 3) duodenal perf - CT today, as per surgery 4) Hydronephrosis - amado as per hospitalists 5) Renal - improving with amado 6) ID - abx as per ID 7) constipation - prn laxatives 8) hiccups - come and go, overall better 9) Globus - anti-reflux tx, on PPI will follow Subjective: cc- CDB stones ERCp pancreatitis, duodenal perf about the same, drinking for CT scan still with RLQ pain, Objective: Vital Signs Temp Pulse Resp BP Pulse Ox 37.5 C 103 H 16 128/78 H 93 03/22/16 11:49 03/22/16 11:49 03/22/16 11:49 03/22/16 11:49 03/22/16 11:49 Laboratory Results 03/22/16 04:47 03/22/16 04:47 03/21/16 03/22/16 03/23/16 05:59 05:59 05:59 Intake Total 2377 1140 Output Total 1240 620 Balance 1137 520 A+Ox3 CTA S1S2 +BS, soft RLQ tender with mild guarding ICD10 Worksheet Patient Problems: Problems Problem Status Diagnosed Hypoxia Acute Pneumonia Acute
--- NOTE | 2016-03-22 13:34 | CT ---
CT Scan of the Abdomen and Pelvis (Without Contrast) 1245 hours History: One week S/P duodenal perforation with repair. Increasing white blood count. Technique: Axial computed tomographic images of the abdomen and pelvis were obtained without IV contr ast. Oral contrast was administered. Images were reviewed in multiple planes. Dose reduction techniqu es were utilized. Comparison to prior CT study of March 15, 2016. CT Abdomen and Pelvis Findings: There is extravasation of oral contrast that appears to originate fro m the second portion of the duodenum just above the ampulla of Vater. Contrast collects anterior and inferior to this along with air-fluid level. This complex collection measures 11 cm longitudinally by 6 x 3.5 cm in transverse and AP dimensions. There is loculated ascites with gas bubbles around the l iver as well as complex loculated collection in the right posterior retroperitoneal and perinephric f at. Complex fluid also appears to extend along the anterior margin of the iliopsoas complex from the mid abdomen into the pelvis. This has all increased since the prior study. Complex thickened presumed fluid also extends within the posterior central mesentery in the lower abdomen just anterior to the aortic bifurcation extending in the retroperitoneal region into the pelvis along the presacral space. Lung bases: Bibasilar pleural effusions have increased now mild to moderate on the right and mild on the left with adjacent compressive atelectatic change. Liver: Lobulated contour secondary to the loculated ascites along the lateral margin. Hypodense areas within the liver probably represent small cysts similar to the prior study.. Spleen: Normal. Gallbladder and Bile Ducts: Previous cholecystectomy. There are 2 adjacent stents within the common bile duct in stable position. A few small gas bubbles are present within the biliary system. Pancreas: Normal. Adrenals: Normal. Kidneys: No obstruction or solid masses. Abdominal Aorta: No aneurysm. Pelvic structures: A Wesley catheter is in place. This appears to be inflated within the prostate. No additional pelvic lesions or collections are seen. Bladder: Decompressed. Bowel Loops: The ascending colon and cecum appear to be edematous. There are no significantly dilate d loops of bowel or evidence for obstruction. Skeletal system: Vertebral body heights are well-maintained. There are no significant lytic or scler otic osseous lesions. There is moderate levoscoliosis mid lumbar spine with associated degenerative d isk disease. Impression: 1. Extravasation of oral contrast probably from the second portion of the duodenum with contrast greg ecting in the right mid abdomen along with complex air-fluid collection. 2. Development of complex collection/ascites along the lateral margin of the liver with gas bubbles. 3. Increase in complex collection in the right posterior appear read effort fat involving the right i liopsoas complex into the pelvis. 4. Complex collection extending from the aortic bifurcation in the lower abdomen to upper pelvis into the presacral space in the lower pelvis increased since the prior study. 5. Increase in bibasilar effusions mild to moderate on the right and mild on the left with adjacent c ompressive atelectatic change. 6. Wesley catheter inflated in the prostate. 7. Mild edematous change associated with the cecum and ascending colon. These findings were discussed by telephone with Dr. Manjit Dunbar 1330 hours.
--- NOTE | 2016-03-22 14:19 | SOAPPROG ---
SOAP Progress Note Assessment/Plan: Assessment/Plan - 81yo M POD#7 ex-lap, repair duodenal perf, omental patch, J-tube - PM Progress - CT reviewed: small area of perforation persists as there was flow of contrast out of the bowel, this is not contained with currenty drain but does track up it. There is a sizeable fluid collection adjacent to the liver which is new - Discussed with aracelis, colleagues. Will plan to perc drain RUQ fluid collection. If frankly bilious will likely need repeat OR for pyloric exclusion and GJ bypass, but if we are able to get source control with perc drain we may able to hold off on repeat OR. Will cont strict NPO. Discussed plan with RN, patient. 03/16/16 13:25 03/18/16 11:00 03/19/16 12:10 03/22/16 10:11 03/22/16 14:17 Objective: Vital Signs Temp Pulse Resp BP Pulse Ox 37.5 C 94 16 131/70 H 93 03/22/16 11:49 03/22/16 13:56 03/22/16 13:56 03/22/16 13:56 03/22/16 13:56 Laboratory Results 03/22/16 04:47 03/22/16 04:47 03/21/16 03/22/16 03/23/16 05:59 05:59 05:59 Intake Total 2377 1140 Output Total 1240 620 Balance 1137 520 ICD10 Worksheet Patient Problems: Problems Problem Status Diagnosed Hypoxia Acute Pneumonia Acute
--- NOTE | 2016-03-22 14:49 | US ---
Ultrasound Venous Duplex Doppler - Bilateral Legs at 1346 hour History: Pain and swelling. Findings: Ultrasound venous Duplex and Doppler imaging of the bilateral common femoral veins, femo ral veins, popliteal veins, calf veins, and greater saphenous vein origins demonstrates normal compre ssibility, Duplex color-flow, Doppler flow without deep venous thrombosis. Right gastrocnemius medial mid calf intraluminal superficial thrombus identified with associated nadiya a. Left calf edema also noted without thrombus. Impression: 1. No deep venous thrombosis bilateral legs. 2. Right calf superficial thrombophlebitis with thrombus in the right gastrocnemius vein.
[2016-03-22 17:37] LABS: INR 1.37 (0.83-1.16); PROTIME(PATIENT) 16.9 SEC (12.0-15.0)
[2016-03-22 17:38] LABS: APTT 32.6 SEC (23.0-38.0)
--- NOTE | 2016-03-22 18:23 | PCMIDPN ---
Assessment/Plan: Assessment/Plan: * E coli bacteremia due to choledocholithiasis and subsequent duodenal perforation status post repair: Febrile yesterday with CT scan showing right upper quadrant fluid collection with admixed air consistent with postoperative abscess and contrast extravasation consistent with small perforation. Plans underway for percutaneous drainage as initial step. May ultimately require surgical repair. Will resume Zosyn for mixed coverage including Enterococcus and anaerobes. Continue empiric fluconazole. 03/22/16 18:20 03/22/16 18:24 Subjective: Patient complains of hiccups which at times create a sense of gasping for air. Objective: Vital Signs Temp Pulse Resp BP Pulse Ox 37.6 C 92 16 127/74 H 94 03/22/16 16:00 03/22/16 16:00 03/22/16 16:00 03/22/16 16:00 03/22/16 16:00 Laboratory Results 03/22/16 04:47 03/22/16 04:47 03/21/16 03/22/16 03/23/16 05:59 05:59 05:59 Intake Total 2377 1140 Output Total 1240 620 500 Balance 1137 520 -500 Ceftriaxone # 6 Fluconazole # 9 Antibiotics # 9 CT scan showing right upper quadrant air-fluid collection suggestive of abscess as well as contrast extravasation from duodenal consistent with leak; images reviewed by me - Physical Exam General Appearance: alert, no apparent distress EENT: pharynx normal, No scleral icterus Respiratory: lungs clear (Anterolaterally) Cardiac/Chest: regular rate, rhythm Abdomen: distended (Mild), tender (Mild right upper quadrant) ICD10 Worksheet Patient Problems: Problems Problem Status Diagnosed Hypoxia Acute Pneumonia Acute
[2016-03-22] MEDS: ACETAMINOPHEN 650 MG/20.3 ML UDCUP PO PRN (23:57)
[2016-03-23] MEDS: NYSTATIN SUSP 500000 UNIT/5 ML UDCUP PO SCH ×4 (05:52→21:10)
[2016-03-23 06:01] LABS: ADD DIFF? YES; ADD MORPH? NO; ADD SCAN? NO; ATYPICAL LYMPHOCYTE FLAG 0 (0-99); FRAGMENT RBC FLAG 0 (0-99); HEMATOCRIT 23.7 % (40.0-51.0); HEMOGLOBIN 7.7 g/dL (13.7-17.5); LEFT SHIFT FLG 60 (0-99); LIPEMIA HEMOLYSIS FLAG 80 (0-99); MEAN CELL HEMOGLOBIN 31.2 pg (27.9-34.1); MEAN CELL HEMOGLOBIN CONCENTR. 32.5 g/dL (32.4-36.7); MEAN PLATELET VOLUME 9.9 fL (8.7-11.7); PLATELET CLUMPS FLAG 10 (0-99); PLATELET COUNT 246 10^3/uL (150-400); RED BLOOD CELL COUNT 2.47 10^6/uL (4.40-6.38); RED CELL DISTRIBUTION WIDTH 14.9 % (11.5-15.2)
[2016-03-23] MEDS: ACETAMINOPHEN 650 MG/20.3 ML UDCUP PO PRN (06:33)
[2016-03-23 06:40] LABS: PLATELET ESTIMATE ADEQUATE (ADEQ)
[2016-03-23] MEDS ORDERED: PIPERACILLIN/TAZO 3.375 GM/DEX 50 ML IV SCH (07:00)
--- NOTE | 2016-03-23 07:10 | PCMIDPN ---
Assessment/Plan: Assessment/Plan: 1. E. coli sepsis/bacteremia secondary to choledolithiasis, with small duodenal perforation/Peritonitis now with intraabdominal abscess: - s/p repair of duodenum 03/15/16. OP noted reviewed. Bilious stained fluid noted in abdomen. No abscess noted at that time.. - Currently on ceftriaxone , fluconazole. Will change to zosyn (renally dosed). Continue fluconazole. -s/p difficult ERCP for stone extraction but will need repeat in 6 weeks. -negative blood cx from 03/09/16. blood cx from 03/21 still pending. c. diff neg - wbc trending up -Recent Ct ab/Pelvis noted: fluid collections present now.. -For IR drainage. current drain not draining much,query if may need repositioning. -May need formal wash out depending on how he does clinically. Monitor closely. Meds ceftraixone 2g daily- 03/17/16-----change to zosyn today 03/23/16 fluconazole 200mg daily- 03/19/16--- s/p zosyn 3.3.75gm q6 03/15/16-03/17 micafungin 100mg daily from 03/15/16- 03/19/16 Subjective: Continues with intermittent spiking fevers. Most of the abdominal pain is concentrated to the right side, especially right lower quadrant. Denies nausea. Loose stools present. on Tube feeds. Denies sob. working with IS. Mild cough. Unable to bring up phlegm. Objective: Vital Signs Temp Pulse Resp BP Pulse Ox 38 C 101 H 18 148/80 H 94 03/23/16 06:31 03/23/16 06:00 03/23/16 06:00 03/23/16 06:00 03/23/16 06:00 Laboratory Results 03/23/16 05:23 03/22/16 04:47 03/22/16 03/23/16 03/24/16 05:59 05:59 05:59 Intake Total 6722 233 8280 Output Total 620 750 400 Balance 520 -387 1327 - Physical Exam General Appearance: alert, no apparent distress Respiratory: coarse breath sounds (mild at bases b/l) Cardiac/Chest: regular rate, rhythm Extremities: swelling (LE--but improved. has compression stockings now) Abdomen: other (bs quiet, distended. pain on palpation on right side, marguerite RLQ, with guarding. CHARLIE drain with minimal serous drainage noted.) Skin: No erythema ICD10 Worksheet Patient Problems: Problems Problem Status Diagnosed Hypoxia Acute Pneumonia Acute
[2016-03-23] MEDS: FLUCONAZOLE/NaCl 100 ML IV SCH (08:45)
[2016-03-23] MEDS ORDERED: FLUMAZENIL 0.5 MG/5 ML MDV IVP ONE (08:56)
[2016-03-23] MEDS ORDERED: MIDAZOLAM 2 MG/2 ML VIAL ONE (08:56)
[2016-03-23] MEDS: TAMSULOSIN HCL 0.4 MG CAP PO SCH (10:01)
--- NOTE | 2016-03-23 10:27 | SOAPPROG ---
KELLIE Progress Note Assessment/Plan: Assessment:Plan: 03/22/16 had fever, increased WBC still with RLQ pain for CT today will eval both duodenal patch and for abscess 1) CBD stones - ERCp and stents 2) pancreatitis - resolving 3) duodenal perf - CT today, as per surgery 4) Hydronephrosis - amado as per hospitalists 5) Renal - improving with amado 6) ID - abx as per ID 7) constipation - prn laxatives 8) hiccups - come and go, overall better 9) Globus - anti-reflux tx, on PPI will follow 03/23/16 10:23 as above, abnml CT yesterday 1) CBD stones - ERCp and stents 2) pancreatitis - resolving 3) duodenal perf - CT sowed fluid collection and duodenal extravasation, IR to perc drain today, o/w as per surgery 4) Hydronephrosis - hospitalist will deal with amado 5) Renal - improving with amado 6) ID - abx as per ID 7) constipation - prn laxatives 8) hiccups - come and go, overall better, suspect reflux related, 9) Globus - anti-reflux tx, on PPI, also slightly improved Subjective: cc- duodenal perf, intra-abdo fluid collection, abdo pain, post ERCp pancreatitis, CBD stones He is hopeful that the IR procedure will decrease abdo pain he states hiccups lessened, better control Objective: Vital Signs Temp Pulse Resp BP Pulse Ox 37.1 C 92 18 127/73 H 93 03/23/16 08:17 03/23/16 08:17 03/23/16 08:17 03/23/16 08:17 03/23/16 08:17 Laboratory Results 03/23/16 05:23 03/22/16 04:47 03/22/16 03/23/16 03/24/16 05:59 05:59 05:59 Intake Total 6695 279 7994 Output Total 620 750 400 Balance 520 -387 1327 PT 16.9 SEC (12.0-15.0) H 03/22/16 17:15 INR 1.37 (0.83-1.16) H 03/22/16 17:15 A+Ox3 CTA anteriorly S1S2 +BS, soft tender rlq ICD10 Worksheet Patient Problems: Problems Problem Status Diagnosed Hypoxia Acute Pneumonia Acute
[2016-03-23] MEDS: PANTOPRAZOLE SODIUM 40 MG in NS 100 ML IV SCH ×2 (11:06→21:12)
[2016-03-23] MEDS: POLYETHYLENE GLYCOL 3350 17 GM PKT TUBE SCH (11:08)
[2016-03-23] MEDS: SENNOSIDES 17.6 MG/10 ML UDL TUBE SCH (11:08)
[2016-03-23] MEDS ORDERED: fentaNYL 100 MCG/2 ML INJ ONE (11:55)
--- NOTE | 2016-03-23 12:01 | HOSPPROG ---
Hospitalist Progress Note Assessment/Plan: 81-year-old admitted with fatigue and found to have E coli bacteremia. Further evaluation revealed biliary source with multiple common bile duct stones. He underwent ERCP and stent placement. Several days postprocedure he started having more abdominal distention and eventually was diagnosed with a perforation in the duodenum and underwent exploratory lap and repair of perforation with omental patch. He continues to have abdominal discomfort he is followed by GI, surgery and Infectious Disease. CT yesterday confirmed large fluid collection in the right lower quadrant where his pain is located as well as some leakage of oral contrast into the cavity. Patient discussed with Dr. Meyer. # E coli bacteremia secondary to biliary source complicated by sepsis which has since resolved. Status post ERCP with common bile duct stone removal and stent placement complicated by perforation. * Drain placement, CT-guided today * Antibiotics per ID * Further surgical intervention will depend upon patient's clinical course and decision by Dr. Dunbar # duodenal perforation status post exploratory lap and repair of perforation with omental patch. Followed by General surgery. Status post ileus and currently on tube feeds. He did have a BM today of liquid stool. * See above # shortness of breath. Review chest x-ray showing bilateral atelectasis small pleural effusions likely contributing to his symptoms. At risk for PE however patient without chest pain at this time. Unable to perform CT angiogram due to creatinine level * Continue duo nebs given patient past history of tobacco use * Negative DVT on lower extremity Dopplers * Continue IS # pancreatitis status post ERCP. Slow improvement will follow # postop ileus status post liquid BM this morning # severe protein calorie malnutrition secondary to above * Patient discussed with dietary. He needs more nutrition will attempt to increase his tube feeds today if that is unsuccessful would consider TPN tomorrow * Patient refused PICC line yesterday, is willing to have it placed today will reorder for today or tomorrow depending on IR availability. # acute on chronic kidney disease with a history of BPH creatinine 1.6 today will follow # anemia # hypernatremia, resolved Subjective: Better spirits today. Breathing is at baseline abdominal pain is stable tolerating tube feeds at 50 per hour. Continues to have liquid stool Objective: Vital Signs Temp Pulse Resp BP Pulse Ox 37.1 C 92 18 127/73 H 93 03/23/16 08:17 03/23/16 08:17 03/23/16 08:17 03/23/16 08:17 03/23/16 08:17 Laboratory Results 03/23/16 05:23 03/22/16 04:47 03/22/16 03/23/16 03/24/16 05:59 05:59 05:59 Intake Total 9141 840 8907 Output Total 620 750 400 Balance 520 -387 1327 PT 16.9 SEC (12.0-15.0) H 03/22/16 17:15 INR 1.37 (0.83-1.16) H 03/22/16 17:15 - Physical Exam Constitutional: chronically ill appearing, uncomfortable Eyes: PERRL Ears, Nose, Mouth, Throat: moist mucous membranes Cardiovascular: regular rate and rhythym, no murmur, rub, or gallop Respiratory: no respiratory distress, no rales or rhonchi Gastrointestinal: normoactive bowel sounds, soft, non-tender abdomen Skin: warm Neurologic: AAOx3 Psychiatric: interacting appropriately, not anxious ICD10 Worksheet Patient Problems: Problems Problem Status Diagnosed Hypoxia Acute Pneumonia Acute
[2016-03-23 14:19] LABS: BILIRUBIN,TOTAL 0.9 mg/dL (0.1-1.4)
[2016-03-23] MEDS: PIPERACILLIN SODIUM/TAZOBACTAM 3.375 GM in D5W 50 ML IV SCH ×3 (14:23→23:06)
[2016-03-23] MEDS: IPRATROPIUM/ALBUTEROL 3 ML DEYVIAL IH SCH ×4 (14:39→21:39)
--- NOTE | 2016-03-23 15:31 | POSTOPPROG ---
Post Op Note Date of Operation: 03/23/16 Surgeon: Yuri Hernandez Distributor Of Directories: DARIA Truong Anesthesiologist: None Anesthesia: IV Sedation (Moderate sedation) Pre-op Diagnosis: Bowel versus bile leak. Retroperitoneal fluid collections Post-op Diagnosis: Same Indication: Pain. Bowel versus bile leak. Retroperitoneal fluid collections Procedure: CT guided placement of 12 Fr percutaneous drain in RT retroperitoneal space Findings: Dominant locule posterior to RT kidney drained 120 ml of brownish watery Inf/Abcess present in the surg proc area at time of surgery?: No Depth: Organ Space (Right retroperitoneal fluid) EBL: Minimal Complications: No immediate complication. Drains: Other (12 Fr percutaneous pigtail catheter in Rt retroperitoneal space) Specimen(s): 60 ml submitted for gm stain, cx, sensitivity, and bilirubin level.
--- NOTE | 2016-03-23 15:54 | SOAPPROG ---
SOMATTY Progress Note Assessment/Plan: Assessment/Plan - 81yo M POD#8 ex-lap, repair duodenal perf, omental patch, J-tube - !BC up to 17 today, from 16. Febrile to 100.3 (improved) - Pain persists, still RLQ - Patient received R flank drainage, has had almost 200cc out. Not frankly bilious but still suspicious. Will send for amylase. - Will evaluate efficacy of drainage over next 24hrs, if patient doesnt make progress have discussed repeat trip to OR for washout, pyloric exclusion and bypass which would be another large undertaking but necessary if decompensates. 03/16/16 13:25 03/18/16 11:00 03/19/16 12:10 03/22/16 10:11 03/22/16 14:17 03/23/16 15:52 Subjective: In a little better spirits today. Pain still persists Objective: Vital Signs Temp Pulse Resp BP Pulse Ox 37.1 C 92 18 127/73 H 93 03/23/16 08:17 03/23/16 08:17 03/23/16 08:17 03/23/16 08:17 03/23/16 08:17 Microbiology 03/23/16 12:50 Gram Stain - Final Peritoneal Fluid - Aspirate Laboratory Results 03/23/16 05:23 03/22/16 04:47 03/22/16 03/23/16 03/24/16 05:59 05:59 05:59 Intake Total 7572 949 3587 Output Total 620 750 400 Balance 520 -387 1327 PT 16.9 SEC (12.0-15.0) H 03/22/16 17:15 INR 1.37 (0.83-1.16) H 03/22/16 17:15 ICD10 Worksheet Patient Problems: Problems Problem Status Diagnosed Hypoxia Acute Pneumonia Acute
--- NOTE | 2016-03-23 16:26 | CT ---
CT-guided percutaneous drain placement dated March 23, 2016 Indication: 81-year-old man with retroperitoneal fluid collection. Suspected duodenal leak. Comparison: CT abdomen and pelvis dated August 20, 2016. Labwork and imaging was reviewed. The procedure, risks and benefits were discussed with the patient. The case was discussed with Dr. Luiz Meyer and Dr. Manjit Dunbar prior to the procedure. A final ca ll was placed to Dr. Manjit Dunbar at the completion of the percutaneous drain placement. The plan at the time of the procedure was to drain the dominant locule posterior to the right kidney. [facility] Crosscutting Measure #226: Current tobacco use: Yes. Deferred tobacco smoking cessation discussi on to primary team. Technique: Patient was placed supine on the CT table in a slight LPO position. Grid was placed over the right flank and limited noncontrast imaging was obtained of the abdomen. The dominant collection in the right retroperitoneal space, posterior to the right kidney, was identified, the skin was marke d, and a caudal to cranial trajectory was selected in the midaxillary line. The skin was cleansed wit h chlorhexidine. The skin and deep soft tissues were anesthetized with 1% lidocaine. Conscious sedati on was initiated. A 17-gauge coaxial Bard needle was advanced into the dominant locule, and an 0.038 Guidewire was curled in the dominant collection. The needle was removed, the tract was serially dilat ed up to a 12-Wallisian caliber, a 12-Wallisian catheter was advanced into the collection and the pigtail w as formed. The collection was drained until dry. The pigtail was secured in place and a final set of imaging was obtained revealing minimal residual fluid in the right retrocolic space. The dominant col lection along the right lateral aspect of the liver did not significantly change in size or definitiv becca communicate with the drained collection. At this time I contacted Dr. Dunbar to discuss the need of placing a second drain along the surfa ce of the liver. Dr. Dunbar indicated I did not need to place a second drain at this time. The 12 -Wallisian percutaneous drain was subsequently fixed to the skin with a percutaneous catheter and attach ed to a grenade suction bag. Patient tolerated the procedure well. Specimen: 120 mL of watery brown fluid. The specimen was submitted to the Lab for Gram stain, cultur e, sensitivity, and bilirubin level. Immediate complication: None. Sedation: Patient received 50 mcg of fentanyl and 1 mg Versed intravenously without complication. Se dation start time: 12:15 p.m. Sedation end time: 1300 hours Impression: 1. Successful placement of 12-Wallisian percutaneous drain in dominant retroperitoneal fluid collection posterior to the right kidney. The material may represent fluid from bowel perforation. No cheri bile . 2. Collection along the right surface of the liver did not drain or appear to communicate with the lo cule posterior to the right kidney. 3. 120 mL of brown watery fluid submitted to the Lab for Gram stain, culture, sensitivity, and total bilirubin level. 4. If the patient does not readily improve, he may require a second percutaneous drain in the collect ion along the right lobe of the liver. The case was discussed with Dr. Manjit Dunbar.
[2016-03-23] MEDS: D5W 1,000 ML IV SCH (18:11)
[2016-03-23] MEDS: HEPARIN 5,000 UNIT/0.5 ML SYR SC SCH (21:10)
[2016-03-24] MEDS: NYSTATIN SUSP 500000 UNIT/5 ML UDCUP PO SCH ×4 (04:59→20:04)
[2016-03-24] MEDS: HEPARIN 5,000 UNIT/0.5 ML SYR SC SCH ×3 (04:59→21:40)
[2016-03-24] MEDS: PIPERACILLIN SODIUM/TAZOBACTAM 3.375 GM in D5W 50 ML IV SCH ×3 (05:00→18:30)
[2016-03-24 05:47] LABS: ADD DIFF? YES; ADD MORPH? NO; ADD SCAN? NO; ATYPICAL LYMPHOCYTE FLAG 10 (0-99); FRAGMENT RBC FLAG 0 (0-99); HEMATOCRIT 23.3 % (40.0-51.0); HEMOGLOBIN 7.9 g/dL (13.7-17.5); LEFT SHIFT FLG 90 (0-99); LIPEMIA HEMOLYSIS FLAG 90 (0-99); MEAN CELL HEMOGLOBIN CONCENTR. 33.9 g/dL (32.4-36.7); MEAN CELL VOLUME 91.4 fL (81.5-99.8); PLATELET CLUMPS FLAG 0 (0-99); PLATELET COUNT 287 10^3/uL (150-400); RED BLOOD CELL COUNT 2.55 10^6/uL (4.40-6.38)
[2016-03-24] MEDS: IPRATROPIUM/ALBUTEROL 3 ML DEYVIAL IH SCH ×4 (05:55→21:21)
[2016-03-24 06:09] LABS: ANION GAP 13 mEq/L (8-16); CALCIUM 7.1 mg/dL (8.5-10.4); CARBON DIOXIDE 27 mEq/l (22-31); CHLORIDE 106 mEq/L (97-110); CREATININE 1.8 mg/dL (0.7-1.3); GLOMERULAR FILTRATION RATE 37; GLUCOSE 128 mg/dL (70-100); POTASSIUM 3.3 mEq/L (3.5-5.2); SODIUM 146 mEq/L (134-144)
[2016-03-24 07:12] LABS: HYPOCHROMIA 1+; PLATELET ESTIMATE ADEQUATE (ADEQ); TOXIC GRANULATION PRESENT; TOXIC VACUOLIZATION PRESENT
[2016-03-24] MEDS: FLUCONAZOLE/NaCl 100 ML IV SCH (09:40)
[2016-03-24] MEDS: PANTOPRAZOLE SODIUM 40 MG in NS 100 ML IV SCH ×2 (09:40→20:12)
[2016-03-24] MEDS: TAMSULOSIN HCL 0.4 MG CAP PO SCH ×2 (09:44→18:55)
--- NOTE | 2016-03-24 10:37 | SOAPPROG ---
KELLIE Progress Note Assessment/Plan: Assessment/Plan - 81yo M POD#9 ex-lap, repair duodenal perf, omental patch, J-tube - Drain placed yesterday, continues to drain fluid which is appearing more like old bile. Amylase 3k which is expected, if was 10x that would be more concerned for persistent duodenal fistula. - WBC down to 13k today from 17, afebrile overnight - Reviewed patient and above with Dr Salcedo who agrees that drainage has helped and that we should not garcia into surgery if we have made some progress. Will cont to monitor, still may need OR but given interval improvement will hold of for now - Can cont J tube feeds AT ALL TIMES. These feeds are distal to stomach and duo and he is already malnourished. Even if he were to have any procedure this would not interfere in any way. 03/16/16 13:25 03/18/16 11:00 03/19/16 12:10 03/22/16 10:11 03/22/16 14:17 03/23/16 15:52 03/24/16 10:34 Subjective: Difficulty getting comfortable in bed, but otherwise abdominal pain is same to little improved. Having BMs Objective: Vital Signs Temp Pulse Resp BP Pulse Ox 37.3 C 97 18 125/78 H 97 03/24/16 08:54 03/24/16 10:00 03/24/16 10:00 03/24/16 08:54 03/24/16 10:00 Microbiology 03/23/16 12:50 Gram Stain - Final Peritoneal Fluid - Aspirate Laboratory Results 03/24/16 05:12 03/24/16 05:12 03/23/16 03/24/16 03/25/16 05:59 05:59 05:59 Intake Total 363 3524 Output Total 750 2090 30 Balance -387 1434 -30 PT 16.9 SEC (12.0-15.0) H 03/22/16 17:15 INR 1.37 (0.83-1.16) H 03/22/16 17:15 ICD10 Worksheet Patient Problems: Problems Problem Status Diagnosed Hypoxia Acute Pneumonia Acute
--- NOTE | 2016-03-24 14:01 | SOAPPROG ---
SOAP Progress Note Assessment/Plan: Assessment:Plan: 03/22/16 had fever, increased WBC still with RLQ pain for CT today will eval both duodenal patch and for abscess 1) CBD stones - ERCp and stents 2) pancreatitis - resolving 3) duodenal perf - CT today, as per surgery 4) Hydronephrosis - amado as per hospitalists 5) Renal - improving with amado 6) ID - abx as per ID 7) constipation - prn laxatives 8) hiccups - come and go, overall better 9) Globus - anti-reflux tx, on PPI will follow 03/23/16 10:23 as above, abnml CT yesterday 1) CBD stones - ERCp and stents 2) pancreatitis - resolving 3) duodenal perf - CT sowed fluid collection and duodenal extravasation, IR to perc drain today, o/w as per surgery 4) Hydronephrosis - hospitalist will deal with amado 5) Renal - improving with amado 6) ID - abx as per ID 7) constipation - prn laxatives 8) hiccups - come and go, overall better, suspect reflux related, 9) Globus - anti-reflux tx, on PPI, also slightly improved 03/24/16 13:57 as above now with perc drain in 1) CBD stones - ERCp and stents 2) pancreatitis - resolving/resolved 3) duodenal perf - CT sowed fluid collection and duodenal extravasation, now with perc drain, o/w as per surgery 4) Hydronephrosis - hospitalist will deal with amado 5) Renal - improving 6) ID - abx as per ID 7) constipation - prn laxatives 8) hiccups - come and go, overall better, suspect reflux related, 9) Globus - anti-reflux tx, on PPI, also slightly improved no change in plan Subjective: CC- duodenal perf, CBD stones, post ERCp pancreatitis, new fluid collection now s/p perc drain he seems in good spirits, globus and hiccups decreasing '' in room toady Objective: Vital Signs Temp Pulse Resp BP Pulse Ox 36.8 C 105 H 16 121/75 H 97 03/24/16 12:30 03/24/16 12:30 03/24/16 12:30 03/24/16 12:30 03/24/16 12:30 Microbiology 03/23/16 12:50 Gram Stain - Final Peritoneal Fluid - Aspirate Laboratory Results 03/24/16 05:12 03/24/16 05:12 03/23/16 03/24/16 03/25/16 05:59 05:59 05:59 Intake Total 363 3524 Output Total 750 2090 30 Balance -387 1434 -30 PT 16.9 SEC (12.0-15.0) H 03/22/16 17:15 INR 1.37 (0.83-1.16) H 03/22/16 17:15 A+Ox3 CTA anteriorly +BS, soft, RLQ external grinder tender but improved on exam S1S2 ICD10 Worksheet Patient Problems: Problems Problem Status Diagnosed Hypoxia Acute Pneumonia Acute
[2016-03-24] MEDS: HYDROmorphONE/DILAUDID 2 MG TAB TUBE PRN (17:35)
[2016-03-24] MEDS: D5W 1,000 ML IV SCH (17:39)
--- NOTE | 2016-03-24 18:58 | PCMIDPN ---
Assessment/Plan: Assessment/Plan: * E coli bacteremia due to choledocholithiasis and subsequent duodenal perforation status post repair: Status post drain placement yesterday with culture pending. Gram stain without organisms. Continue Zosyn and fluconazole pending further culture. Surgical notes reviewed with plans for continued conservative management and continued clinical assessment over time. 03/24/16 18:56 Subjective: Patient complains of poor sleep. Fluid collection drain yesterday percutaneously with negative Gram stain and culture currently pending. Objective: Vital Signs Temp Pulse Resp BP Pulse Ox 37.1 C 110 H 16 140/70 H 93 03/24/16 16:01 03/24/16 18:00 03/24/16 18:00 03/24/16 18:00 03/24/16 18:00 Microbiology 03/23/16 12:50 Gram Stain - Final Peritoneal Fluid - Aspirate Laboratory Results 03/24/16 05:12 03/24/16 05:12 03/23/16 03/24/16 03/25/16 05:59 05:59 05:59 Intake Total 363 3524 2825 Output Total 750 2090 810 Balance -387 1434 2015 Zosyn # 2 (antibiotics # 11 Fluconazole # 11 Fluid collection Gram stain negative with culture pending - Physical Exam General Appearance: alert, no apparent distress EENT: other (White coating on tongue), No scleral icterus Respiratory: other (Decreased breath sounds both bases) Cardiac/Chest: tachycardia Extremities: other (3+ lower extremity edema bilaterally) Abdomen: non-tender, other (Small amount of brownish output via new drain), No distended ICD10 Worksheet Patient Problems: Problems Problem Status Diagnosed Hypoxia Acute Pneumonia Acute
--- NOTE | 2016-03-24 19:04 | HOSPPROG ---
Hospitalist Progress Note Assessment/Plan: Assessment/Plan: 81 y/o male p/w sepsis in setting of E. coli bacteremia, c/b duodenal perforation, acute pancreatitis, ileus # Sepsis. Evidenced by tachypnea + tachycardia + leukocytosis + infection ( bacteremia), resulting in autonomic dysregulation in setting of infxn - s/p IVF and Abx # E. coli bacteremia. Likely 2/2 choledolithiasis - s/p ERCP 03/12, stones removed, needs repeat in 6 weeks. - initially IV CTX, then broadened s/p duodenal perf - d/w Dr. Silverman, adjusted back to CTX and fluconazole, 2 weeks from neg cx date # Duodenal perforation. Evidenced by free air on CT, s/p ex lap by Dr. Dunbar 03/15/16 - POD#9 - CT drainage appears to be old bile, amylase 3K, cont CT drain per Dr. Dunbar # Ileus. Anticipated post-op, acute, no flatus or BMs this AM - TF advanced to 75, then 90ml/hr - added liq bowel regimen via J-tube # Acute pancreatitis. Occurred post-ERCP w/ stone removal - added tube dilaudid, cont [employer] for breakthrough (attempt to use tube dilaudid first) # LE edema. Likely 2/2 IVF, dimer elevated, LE US neg 03/11 - cont JIMMY hose - monitor strict I/O, add lasix if needed - monitor lytes # Atelectasis. 2/2 immobility and intra-abd perf - cont IS and supp o2 # MILLA. 2/2 hypovolemia, s/p IVF creat improving - Cr uptrending today, cont to monitor # Anemia. No signs of GI bleeding or acute blood loss - has + heme stool - off ASA - PCP is in [place]/ he needs to get f/u with a colonoscopy # GERD. Cont tums and PPI # Hypernatremia. 2/2 poor free water intake - cont 360ml free water boluses # BPH. Causing a degree of urinary retention - cont amado per patient request - started flomax via J-tube # Severe protein calorie malnutrition. Secondary to above, evidenced by ASPEN criteria - appreciate consult by dietary - he needs more nutrition will attempt to increase his tube feeds today if that is unsuccessful would consider TPN tomorrow Diet. TF, advanced under the direction General surgery Prophylaxis. High risk patient, heparin subcu Code. Full Disposition. Anticipated discharge uncertain this time, patient has yet to reach clinical stabilization with recent duodenal perforation Subjective: Patient reports that he is exclusively using the [employer] for pain management, has had liquid stool Objective: Vital Signs Temp Pulse Resp BP Pulse Ox 37.1 C 110 H 16 140/70 H 93 03/24/16 16:01 03/24/16 18:00 03/24/16 18:00 03/24/16 18:00 03/24/16 18:00 Microbiology 03/23/16 12:50 Gram Stain - Final Peritoneal Fluid - Aspirate Laboratory Results 03/24/16 05:12 03/24/16 05:12 03/23/16 03/24/16 03/25/16 05:59 05:59 05:59 Intake Total 363 3524 2825 Output Total 750 2090 810 Balance -387 1434 2014 PT 16.9 SEC (12.0-15.0) H 03/22/16 17:15 INR 1.37 (0.83-1.16) H 03/22/16 17:15 - Time Spent With Patient Time Spent with Patient: greater than 35 minutes Time Spent with Patient: Greater than 35 minutes spent on this patients care, greater than 50% of time spent counseling, educating, and coordinating care regarding the above mentioned plan. - Physical Exam Constitutional: no apparent distress, chronically ill appearing, uncomfortable Cardiovascular: edema (1+ bilateral lower extremity), No systolic murmur, No irregularly irregular, No tachycardia Respiratory: reduced air movement (Bilateral), inspiratory crackles (Mid posterior segment), No expiratory wheeze (Posterior segment), No bronchial breath sounds Gastrointestinal: normoactive bowel sounds, tenderness (To moderate palpation), distension (Mildly) Skin: other (No erythema fluctuance or induration around the surgical site) Neurologic: AAOx3, sensation intact bilaterally Psychiatric: interacting appropriately, not anxious, not encephalopathic, thought process linear ICD10 Worksheet Patient Problems: Problems Problem Status Diagnosed Hypoxia Acute Pneumonia Acute
[2016-03-24] MEDS ORDERED: FUROSEMIDE 20 MG/2 ML VIAL IVP SCH (20:00)
[2016-03-25] MEDS: PIPERACILLIN SODIUM/TAZOBACTAM 3.375 GM in D5W 50 ML IV SCH ×3 (00:38→13:09)
[2016-03-25] MEDS: HYDROmorphONE/DILAUDID 2 MG TAB TUBE PRN (00:43)
[2016-03-25] MEDS: NYSTATIN SUSP 500000 UNIT/5 ML UDCUP PO SCH ×4 (05:55→21:33)
[2016-03-25] MEDS: HEPARIN 5,000 UNIT/0.5 ML SYR SC SCH ×3 (05:55→21:34)
[2016-03-25 06:09] LABS: % IMMATURE GRANULYOCYTES 1.7 % (0.0-1.1); ABSOLUTE IMMATURE GRANULOCYTES 0.23 10^3/uL (0.00-0.10); ADD DIFF? NO; ADD MORPH? NO; ADD SCAN? NO; ATYPICAL LYMPHOCYTE FLAG 20 (0-99); FRAGMENT RBC FLAG 30 (0-99); HEMATOCRIT 21.6 % (40.0-51.0); HEMOGLOBIN 7.3 g/dL (13.7-17.5); LEFT SHIFT FLG 50 (0-99); LIPEMIA HEMOLYSIS FLAG 90 (0-99); MEAN CELL HEMOGLOBIN 30.9 pg (27.9-34.1); MEAN CELL HEMOGLOBIN CONCENTR. 33.8 g/dL (32.4-36.7); MEAN CELL VOLUME 91.5 fL (81.5-99.8); PLATELET CLUMPS FLAG 0 (0-99); PLATELET COUNT 326 10^3/uL (150-400); RED BLOOD CELL COUNT 2.36 10^6/uL (4.40-6.38); RED CELL DISTRIBUTION WIDTH 15.2 % (11.5-15.2)
[2016-03-25] MEDS: IPRATROPIUM/ALBUTEROL 3 ML DEYVIAL IH SCH ×4 (06:11→23:47)
[2016-03-25 06:36] LABS: ANION GAP 11 mEq/L (8-16); CALCIUM 7.1 mg/dL (8.5-10.4); CARBON DIOXIDE 28 mEq/l (22-31); CHLORIDE 108 mEq/L (97-110); CREATININE 2.1 mg/dL (0.7-1.3); GLOMERULAR FILTRATION RATE 31; GLUCOSE 133 mg/dL (70-100); POTASSIUM 3.4 mEq/L (3.5-5.2); SODIUM 147 mEq/L (134-144)
[2016-03-25] MEDS ORDERED: POTASSIUM CL 20 MEQ/15 ML UDCUP TUBE ONE (08:43)
[2016-03-25] MEDS: TAMSULOSIN HCL 0.4 MG CAP PO SCH (09:27)
[2016-03-25] MEDS: MAGNESIUM OXIDE 400 MG TAB TUBE SCH (09:28)
[2016-03-25] MEDS: PANTOPRAZOLE SODIUM 40 MG in NS 100 ML IV SCH ×2 (09:28→21:33)
[2016-03-25] MEDS ORDERED: POTASSIUM CL 20 MEQ/15 ML UDCUP ONE (09:36)
[2016-03-25] MEDS: FLUCONAZOLE/NaCl 100 ML IV SCH (11:06)
--- NOTE | 2016-03-25 12:32 | SOAPPROG ---
SOAP Progress Note Assessment/Plan: Assessment:Plan: 03/24/16 13:57 as above now with perc drain in 1) CBD stones - ERCp and stents 2) pancreatitis - resolving/resolved 3) duodenal perf - CT sowed fluid collection and duodenal extravasation, now with perc drain, o/w as per surgery 4) Hydronephrosis - hospitalist will deal with amado 5) Renal - improving 6) ID - abx as per ID 7) constipation - prn laxatives 8) hiccups - come and go, overall better, suspect reflux related, 9) Globus - anti-reflux tx, on PPI, also slightly improved no change in plan 03/25/16 12:26 as above, no change in plan 1) CBD stones - ERCp and stents 2) pancreatitis - resolving/resolved 3) duodenal perf - CT sowed fluid collection and duodenal extravasation, now with perc drain, o/w as per surgery 4) Hydronephrosis - hospitalist will deal with amado 5) Renal - improving 6) ID - abx as per ID, cx from fluid collection negative thus far, GS neg as well 7) constipation - prn laxatives 8) hiccups - come and go, overall better, suspect reflux related, will add QHS H2RA 9) Globus - anti-reflux tx, on PPI, also slightly improved 03/25/16 12:28 Subjective: CC- duodenal perf, post ERCp pancreatitis, sepsis overall not much changed, still with episode of hiccups and globus that bother him Objective: Vital Signs Temp Pulse Resp BP Pulse Ox 36.7 C 96 18 123/70 H 96 03/25/16 11:54 03/25/16 12:03 03/25/16 12:03 03/25/16 11:54 03/25/16 12:03 Microbiology 03/23/16 12:50 Gram Stain - Final Peritoneal Fluid - Aspirate Laboratory Results 03/25/16 04:43 03/25/16 04:43 03/24/16 03/25/16 03/26/16 05:59 05:59 05:59 Intake Total 3524 2825 1439 Output Total 2090 2320 Balance 0451 315 2343 PT 16.9 SEC (12.0-15.0) H 03/22/16 17:15 INR 1.37 (0.83-1.16) H 03/22/16 17:15 A+Ox3 CTA anteriorly S1S2 +BS, soft RLQ tenderness no rebound ICD10 Worksheet Patient Problems: Problems Problem Status Diagnosed Hypoxia Acute Pneumonia Acute
--- NOTE | 2016-03-25 13:56 | SOAPPROG ---
KELLIE Progress Note Assessment/Plan: Assessment/Plan - 81yo M POD#10 ex-lap, repair duodenal perf, omental patch, J-tube - Abdominal exam today is softer and reassuring. JPs cont to drain fluid appropriately and he is now tolerating his tube feeds. His WBC persists at 13k and he is somewaht tachycardic this AM but I feel this could be more related to pulm issues given his improvement in his abdominal exam. - Would cont perc drainas to bulb suction, abx. and frequent exams. But clinically has made improvement with abdominal exam today. Will cont frequent monitoring. May still need OR. - Can cont J tube feeds AT ALL TIMES. These feeds are distal to stomach and duo and he is already malnourished. Even if he were to have any procedure this would not interfere in any way. 03/16/16 13:25 03/18/16 11:00 03/19/16 12:10 03/22/16 10:11 03/22/16 14:17 03/23/16 15:52 03/24/16 10:34 03/25/16 13:54 Subjective: States that his abdomen does feel a little better today. Tolerating TFs at goal , having bowel function Objective: Vital Signs Temp Pulse Resp BP Pulse Ox 36.7 C 96 18 123/70 H 96 03/25/16 11:54 03/25/16 12:03 03/25/16 12:03 03/25/16 11:54 03/25/16 12:03 Microbiology 03/23/16 12:50 Gram Stain - Final Peritoneal Fluid - Aspirate Laboratory Results 03/25/16 04:43 03/25/16 04:43 03/24/16 03/25/16 03/26/16 05:59 05:59 05:59 Intake Total 3524 2825 1439 Output Total 2090 2320 850 Balance 1434 505 589 PT 16.9 SEC (12.0-15.0) H 03/22/16 17:15 INR 1.37 (0.83-1.16) H 03/22/16 17:15 ICD10 Worksheet Patient Problems: Problems Problem Status Diagnosed Hypoxia Acute Pneumonia Acute
[2016-03-25 16:09] LABS: CREATININE 2.2 mg/dL (0.7-1.3)
--- NOTE | 2016-03-25 16:23 | HOSPPROG ---
Hospitalist Progress Note Assessment/Plan: Assessment/Plan: 81 y/o male p/w sepsis in setting of E. coli bacteremia, c/b duodenal perforation, acute pancreatitis, ileus # Sepsis. Evidenced by tachypnea + tachycardia + leukocytosis + infection ( bacteremia), resulting in autonomic dysregulation in setting of infxn - s/p IVF and Abx # E. coli bacteremia. Likely 2/2 choledolithiasis - s/p ERCP 03/12, stones removed, needs repeat in 6 weeks. - initially IV CTX, then broadened s/p duodenal perf - d/w Dr. Tejada, on Zosyn and Fluconazole # Duodenal perforation. Evidenced by free air on CT, s/p ex lap by Dr. Dunbar 03/15/16 - POD#10 - CT drainage appears to be old bile, amylase 3K, cont CT drain per Dr. Dunbar - given patient's improvement in his abdominal pain, suspect that he is not spilling fluid from his previous perforation and the drain is well seated in the abscess area - continue to monitor drain output # Ileus. Anticipated post-op, acute, moving bowels regularly - TF advanced to 90ml/hr - added liq bowel regimen via J-tube # Acute pancreatitis. Occurred post-ERCP w/ stone removal - added tube dilaudid, cont CLAIMS INVESTIGATOR for breakthrough (attempt to use tube dilaudid first) - if patient not requiring additional IV Dilaudid, will discontinue CLAIMS INVESTIGATOR and provide only as needed IV breakthrough medication # LE edema. Likely 2/2 IVF, dimer elevated, LE US neg 03/11 - cont JIMMY hose - monitor strict I/O, holding Lasix given his acute kidney injury - monitor lytes # Atelectasis. 2/2 immobility and intra-abd perf - cont IS and supp o2 # MILLA. 2/2 hypovolemia, given scheduled albumin as an attempt to mobilize fluid and increase renal perfusion - Cr uptrending today, cont to monitor - holding Lasix # Anemia. No signs of GI bleeding or acute blood loss - has + heme stool - off ASA - PCP is in [place]/ he needs to get f/u with a colonoscopy # GERD. Cont tums and PPI # Hypernatremia. 2/2 poor free water intake - cont 360ml free water boluses # BPH. Causing a degree of urinary retention - cont amado per patient request - holding flomax as it cannot be crushed # Severe protein calorie malnutrition. Secondary to above, evidenced by ASPEN criteria - appreciate consult by dietary Diet. TF, advanced under the direction General surgery Prophylaxis. High risk patient, heparin subcu Code. Full Disposition. Anticipated discharge uncertain this time, patient has yet to reach clinical stabilization with recent duodenal perforation Subjective: Less abdominal pain today, feels incredibly weak, very frustrated with all of his tubes in connection Objective: Vital Signs Temp Pulse Resp BP Pulse Ox 36.7 C 111 H 20 124/73 H 99 03/25/16 11:54 03/25/16 14:25 03/25/16 14:25 03/25/16 14:25 03/25/16 14:25 Microbiology 03/23/16 12:50 Gram Stain - Final Peritoneal Fluid - Aspirate Laboratory Results 03/25/16 04:43 03/25/16 15:40 03/24/16 03/25/16 03/26/16 05:59 05:59 05:59 Intake Total 3524 2825 1439 Output Total 2090 2320 850 Balance 1434 505 589 PT 16.9 SEC (12.0-15.0) H 03/22/16 17:15 INR 1.37 (0.83-1.16) H 03/22/16 17:15 - Time Spent With Patient Time Spent with Patient: greater than 35 minutes Time Spent with Patient: Greater than 35 minutes spent on this patients care, greater than 50% of time spent counseling, educating, and coordinating care regarding the above mentioned plan. - Physical Exam Constitutional: not in pain, chronically ill appearing, uncomfortable Cardiovascular: regular rate and rhythym, no murmur, rub, or gallop, edema (2+ bilateral lower extremity), No irregularly irregular, No tachycardia Respiratory: reduced air movement (Bilateral bases posteriorly), No expiratory wheeze, No inspiratory crackles, No bronchial breath sounds Gastrointestinal: normoactive bowel sounds, other (Right upper quadrant abdominal drain in place, no particular tenderness to palpation) Skin: other (No erythema around the surgical site) Neurologic: AAOx3 Psychiatric: interacting appropriately, not anxious, not encephalopathic, thought process linear, other (Frustrated) ICD10 Worksheet Patient Problems: Problems Problem Status Diagnosed Hypoxia Acute Pneumonia Acute
--- NOTE | 2016-03-25 16:47 | PCMIDPN ---
Assessment/Plan: #Davis-S E coli bacteremia, secondary to choledocholithiasis s/p ERCP. 03/09 and 03/21 blood cx demonstrate clearance. 2 weeks of therapy at 03/21/16 --continue antibiotics for DU perf as described below # DU perf with obvious intra-abdominal spillage and subsequent identification of small leak 03/22 with perihepatic fluid collection status post drainage by IR now growing gram-positive cocci that appears streptococcal/enterococcal. Currently managing conservatively with drainage and jejunal feeding. --continue coverage with Zosyn and fluconazole # Acute renal failure: Creatinine continues to slowly increase, creatinine clearance is in the 30s, decrease Zosyn to 2.25 g IV Q 6 --send UA and urine eosinophils to evaluate if Zosyn contributing Meds Zosyn, # antibiotic day 12 Fluconazole 200 mg IV daily, (antifungal, #12) Microbiology 03/21 blood cultures 2 sets: no growth 03/23 abdominal aspirate: 3+ GPCs Subjective: Patient has bilateral lower abdominal pain after going on walk today. Less shortness of breath Objective: Vital Signs Temp Pulse Resp BP Pulse Ox 36.7 C 111 H 20 124/73 H 99 03/25/16 11:54 03/25/16 14:25 03/25/16 14:25 03/25/16 14:25 03/25/16 14:25 Microbiology 03/23/16 12:50 Gram Stain - Final Peritoneal Fluid - Aspirate Laboratory Results 03/25/16 04:43 03/25/16 15:40 03/24/16 03/25/16 03/26/16 05:59 05:59 05:59 Intake Total 3524 2825 1439 Output Total 2090 2320 850 Balance 1434 505 589 - Physical Exam General Appearance: alert, no apparent distress EENT: pale conjunctiva, dry mucous membranes, No scleral icterus Respiratory: other (Decreased breath sounds in the bases) Neck: supple Cardiac/Chest: regular rate, rhythm Extremities: pedal edema Abdomen: non-tender, distended, other (Right large CHARLIE bulb with brownish drainage, 200 cc out yesterday and approximately 70 cc out today) Male Genitalia: amado Skin: No rash Neuro/Psych: alert, normal mood/affect, oriented x 3 - Time Spent With Patient Time Spent with Patient: greater than 35 minutes (Reviewing measures of improvement with slight decrease in CHARLIE output, stable white count, improved oxygenation, also discussed renal function) Time Spent with Patient: Greater than 35 minutes spent on this patients care, greater than 50% of time spent counseling, educating, and coordinating care regarding the above mentioned plan. ICD10 Worksheet Patient Problems: Problems Problem Status Diagnosed Hypoxia Acute Pneumonia Acute
[2016-03-25] MEDS: PIPERACILLIN/TAZO 2.25 GM/DEX 50 ML IV SCH (17:41)
[2016-03-25] MEDS: ALBUMIN 25% 100 ML IV SCH ×2 (18:20→23:22)
[2016-03-25] MEDS: FAMOTIDINE 20 MG/NACL 50 ML IV SCH (19:44)
[2016-03-25 21:56] LABS: COLOR YELLOW; LEUKOCYTE ESTERASE,URINE NEGATIVE (NEGATIVE); NITRITE,URINE NEGATIVE (NEGATIVE)
[2016-03-25 22:02] LABS: AMORPHOUS PRESENT /hpf (NONE-1+); BACTERIA 1+ /hpf (NONE SEEN); MUCUS TRACE /lpf (NONE-1+)
[2016-03-25 22:26] LABS: WBC,URINE 0-1 /hpf (0-3)
[2016-03-25 23:07] LABS: EOSMR EOSINOPHILS NO EOS SEEN (NO EOS SEEN); EOSMR EPITHELIAL CELLS MODERATE EPITH CELLS; EOSMR PMNS MODERATE PMN CELLS; EOSMR RBCS NO RBCS SEEN
[2016-03-26] MEDS: PIPERACILLIN/TAZO 2.25 GM/DEX 50 ML IV SCH ×4 (00:34→18:26)
[2016-03-26] MEDS ORDERED: MAG HYDROX/AL HYDROX/SIMETH 30 ML UDCUP PO PRN (04:23)
[2016-03-26] MEDS: NYSTATIN SUSP 500000 UNIT/5 ML UDCUP PO SCH ×4 (05:12→20:54)
[2016-03-26] MEDS: HEPARIN 5,000 UNIT/0.5 ML SYR SC SCH ×3 (05:13→20:54)
[2016-03-26 05:38] LABS: % IMMATURE GRANULYOCYTES 2.4 % (0.0-1.1); ABSOLUTE NRBC COUNT 0.02 10^3/uL (0-0.01); ADD DIFF? NO; ADD MORPH? YES; ADD SCAN? NO; ATYPICAL LYMPHOCYTE FLAG 20 (0-99); FRAGMENT RBC FLAG 0 (0-99); HEMATOCRIT 19.6 % (40.0-51.0); LEFT SHIFT FLG 30 (0-99); LIPEMIA HEMOLYSIS FLAG 80 (0-99); MEAN CELL HEMOGLOBIN 30.6 pg (27.9-34.1); MEAN CELL HEMOGLOBIN CONCENTR. 33.7 g/dL (32.4-36.7); MEAN CELL VOLUME 90.7 fL (81.5-99.8); NRBC-AUTO% 0.2 % (0.0-0.2); PLATELET CLUMPS FLAG 0 (0-99); PLATELET COUNT 332 10^3/uL (150-400); RED BLOOD CELL COUNT 2.16 10^6/uL (4.40-6.38); RED CELL DISTRIBUTION WIDTH 15.1 % (11.5-15.2)
[2016-03-26 05:43] LABS: HEMOGLOBIN 6.6 g/dL (13.7-17.5)
[2016-03-26 05:50] LABS: ALANINE AMINOTRANSFERASE 33 IU/L (21-72); ALBUMIN 2.3 g/dL (3.5-5.0); ALKALINE PHOSPHATASE 110 IU/L (38-126); ANION GAP 12 mEq/L (8-16); ASPARTATE AMINOTRANSFERASE 37 IU/L (17-59); BILIRUBIN,TOTAL 0.6 mg/dL (0.1-1.4); CALCIUM 7.6 mg/dL (8.5-10.4); CARBON DIOXIDE 27 mEq/l (22-31); CHLORIDE 112 mEq/L (97-110); CREATININE 2.2 mg/dL (0.7-1.3); GLOMERULAR FILTRATION RATE 29; GLUCOSE 136 mg/dL (70-100); POTASSIUM 3.6 mEq/L (3.5-5.2); SODIUM 151 mEq/L (134-144); TOTAL PROTEIN 5.2 g/dL (6.3-8.2)
[2016-03-26] MEDS: IPRATROPIUM/ALBUTEROL 3 ML DEYVIAL IH SCH ×4 (05:50→21:33)
[2016-03-26] MEDS: ALBUMIN 25% 100 ML IV SCH ×2 (05:55→14:15)
[2016-03-26 06:48] LABS: PLATELET ESTIMATE ADEQUATE (ADEQ)
[2016-03-26 06:51] LABS: HYPOCHROMIA 1+; POLYCHROMASIA 1+
[2016-03-26] MEDS: ONDANSETRON 4 MG/2 ML VIAL IVP PRN (08:26)
[2016-03-26] MEDS: PANTOPRAZOLE SODIUM 40 MG in NS 100 ML IV SCH ×2 (09:14→20:54)
[2016-03-26] MEDS: MAGNESIUM OXIDE 400 MG TAB TUBE SCH (09:20)
[2016-03-26] MEDS: FAMOTIDINE 20 MG/NACL 50 ML IV SCH (10:13)
[2016-03-26] MEDS: FLUCONAZOLE/NaCl 100 ML IV SCH (10:44)
--- NOTE | 2016-03-26 11:17 | SOAPPROG ---
SOAP Progress Note Assessment/Plan: Assessment/Plan - 81yo M POD#11 ex-lap, repair duodenal perf, omental patch, J-tube - Pain continues to improve daily, abdomen is minimally distended but soft. JPs cont to drain cloudy serous fluid. WBC down. Appears to be improving minimally each day with perc drains. Will hopefully cont this over the weekend. Will likely repeat CT early next week with PO contrast to eval seal of perf. But given improvement in clinical exam unlikely he is still leaking, or is he is it is small. Hb <7 today, would transfuse (would maybe help with overall energy level). Cont current Tx 03/16/16 13:25 03/18/16 11:00 03/19/16 12:10 03/22/16 10:11 03/22/16 14:17 03/23/16 15:52 03/24/16 10:34 03/25/16 13:54 03/26/16 11:15 03/26/16 11:17 Subjective: In better spirits today. Pain improved. Objective: Vital Signs Temp Pulse Resp BP Pulse Ox 36.9 C 98 16 112/65 93 03/26/16 10:00 03/26/16 10:00 03/26/16 10:00 03/26/16 10:00 03/26/16 10:00 Microbiology 03/23/16 12:50 Gram Stain - Final Peritoneal Fluid - Aspirate Laboratory Results 03/26/16 04:48 03/26/16 04:48 03/25/16 03/26/16 03/27/16 05:59 05:59 05:59 Intake Total 2825 1839 1551 Output Total 2320 1700 420 Balance 945 613 0225 PT 16.9 SEC (12.0-15.0) H 03/22/16 17:15 INR 1.37 (0.83-1.16) H 03/22/16 17:15 ICD10 Worksheet Patient Problems: Problems Problem Status Diagnosed Hypoxia Acute Pneumonia Acute
--- NOTE | 2016-03-26 16:13 | HOSPPROG ---
Hospitalist Progress Note Assessment/Plan: INTERVAL SUMMARY & DAILY PROGRESS NOTE DATE OF ADMISSION: 03/07/2016 INTERVAL DIAGNOSES 1. Sepsis 2. E coli bacteremia 3. Acute duodenal perforation 4. Acute postoperative ileus 5. Acute pancreatitis 6. Acute lower extremity edema 7. Acute atelectasis 8. Acute kidney injury 9. Anemia 10. Gastroesophageal reflux disease 11. Acute hypernatremia 12. BPH 13. Severe protein calorie malnutrition CONSULTATIONS General surgery by Dr. Dunbar, gastroenterology, infectious disease PROCEDURES / IMAGING Reinsertion of the tube in the abscess by CT CHIEF COMPLAINT Acute weakness and abdominal pain SUBJECTIVE Patient feels weak today, he is getting frustrated, he has been having frequent loose bowel movements which are nonbloody and nonmelanotic HOSPITAL COURSE BY PROBLEM The patient initially presented with sepsis in the setting of E coli bacteremia , he was found to have ductal stones which underwent removal by ERCP. The patient experienced a duodenal perforation and underwent surgical repair. Since that time, the patient has developed an intra-abdominal abscess which has been drained with a CT-guided tube insertion. His nutrition has been maintained via J-tube. He has been continued on broad-spectrum antibiotics. The plan is to allow for several more days of healing and then repeat another oral contrast study on 03/29/2016 to determine whether there is any visible evidence of extravasation of contrast medium into the abdominal cavity. If there is no extravasation of contrast material, then we will consider the affected area healed, and the patient can be safely transferred to a rehab facility (potentially inpatient rehab). That being said, general surgery as advised against initiating an oral diet until he can be followed up as an outpatient and have a repeat oral contrast study in the near future. He will continue to receive nutrition via J-tube. Assessment/Plan: 81 y/o male p/w sepsis in setting of E. coli bacteremia, c/b duodenal perforation, acute pancreatitis, ileus # Sepsis. Evidenced by tachypnea + tachycardia + leukocytosis + infection ( bacteremia), resulting in autonomic dysregulation in setting of infxn - s/p IVF and Abx # E. coli bacteremia. Likely 2/2 choledolithiasis - s/p ERCP 03/12, stones removed, needs repeat in 6 weeks. - initially IV CTX, then broadened s/p duodenal perf - cont on Zosyn and Fluconazole - will likely need PICC line placement prior to going to rehab # Duodenal perforation. Evidenced by free air on CT, s/p ex lap by Dr. Dunbar 03/15/16 - POD#11 - CT drainage appears to be old bile, amylase 3K, cont CT drain per Dr. Dunbar - given patient's improvement in his abdominal pain, suspect that he is not spilling fluid from his previous perforation and the drain is well seated in the abscess area - continue to monitor drain output - plan to get oral contrast study on 03/29/16 to determine if there is any visible e/o extravasation, and, if there is not, then we won't feed him, but we will get short term f/u oral study and base the future decisions on feeding on that # Ileus. Anticipated post-op, acute, moving bowels regularly - TF advanced to 90ml/hr - added liq bowel regimen via J-tube # Acute pancreatitis. Occurred post-ERCP w/ stone removal - added tube dilaudid, off MOSAICIST and on PRN IV dilaudid # LE edema. Likely 2/2 IVF, dimer elevated, LE US neg 03/11 - cont JIMMY hose - monitor strict I/O, holding Lasix given his acute kidney injury - monitor lytes # Atelectasis. 2/2 immobility and intra-abd perf - cont IS and supp o2 # MILLA. 2/2 hypovolemia, stopped albumin today given that we're giving a unit of blood which will increase oncotic pressure and renal perfusion - Cr stable today, cont to monitor - holding Lasix, consider restarting tomorrow if Cr downtrending # Anemia. No signs of GI bleeding or acute blood loss - has + heme stool - holding ASA - PCP is in [place]/ he needs to get f/u with a colonoscopy - no e/o bleeding today, suspect decline in Hgb is 2/2 increased intravascular volume w/ albumin - given that he is symptomatic at 6.6, will give 1u and recheck Hgb tomorrow AM # GERD. Cont tums and PPI # Hypernatremia. 2/2 poor free water intake - increase to 540ml free water bolus total # BPH. Causing a degree of urinary retention - cont amado per patient request - holding flomax as it cannot be crushed # Severe protein calorie malnutrition. Secondary to above, evidenced by ASPEN criteria - appreciate consult by dietary Diet. TF, advanced under the direction General surgery Prophylaxis. High risk patient, heparin subcu Code. Full Disposition. Anticipated discharge uncertain this time, patient has yet to reach clinical stabilization with recent duodenal perforation Subjective: Patient is discharged today, he has ambulated around the unit, denies any melena or hematochezia Objective: Vital Signs Temp Pulse Resp BP Pulse Ox 37.7 C 96 16 118/61 95 03/26/16 14:56 03/26/16 14:56 03/26/16 14:56 03/26/16 14:56 03/26/16 14:56 Microbiology 03/23/16 12:50 Gram Stain - Final Peritoneal Fluid - Aspirate Laboratory Results 03/26/16 04:48 03/26/16 04:48 03/25/16 03/26/16 03/27/16 05:59 05:59 05:59 Intake Total 2825 1839 1551 Output Total 2320 1700 420 Balance 501 215 0882 PT 16.9 SEC (12.0-15.0) H 03/22/16 17:15 INR 1.37 (0.83-1.16) H 03/22/16 17:15 - Time Spent With Patient Time Spent with Patient: greater than 35 minutes Time Spent with Patient: Greater than 35 minutes spent on this patients care, greater than 50% of time spent counseling, educating, and coordinating care regarding the above mentioned plan. - Physical Exam Constitutional: no apparent distress, not in pain, chronically ill appearing Cardiovascular: tachycardia, edema (2+ bilateral lower extremity), No systolic murmur, No irregularly irregular Respiratory: reduced air movement (Bilateral bases), inspiratory crackles, No expiratory wheeze, No bronchial breath sounds, No respiratory distress Gastrointestinal: normoactive bowel sounds, tenderness (Right lateral abdomen next to the drain site), No distension Skin: no rashes or abrasions, no fluctuance, no induration, No erythema Neurologic: AAOx3, No weakness, No facial droop Psychiatric: not anxious, not encephalopathic, thought process linear, flat affect, No agitated ICD10 Worksheet Patient Problems: Problems Problem Status Diagnosed Hypoxia Acute Pneumonia Acute
--- NOTE | 2016-03-26 16:18 | SOAPPROG ---
KELLIE Progress Note Assessment/Plan: Assessment:Plan: 03/24/16 13:57 as above now with perc drain in 1) CBD stones - ERCp and stents 2) pancreatitis - resolving/resolved 3) duodenal perf - CT sowed fluid collection and duodenal extravasation, now with perc drain, o/w as per surgery 4) Hydronephrosis - hospitalist will deal with amado 5) Renal - improving 6) ID - abx as per ID 7) constipation - prn laxatives 8) hiccups - come and go, overall better, suspect reflux related, 9) Globus - anti-reflux tx, on PPI, also slightly improved no change in plan 03/25/16 12:26 as above, no change in plan 1) CBD stones - ERCp and stents 2) pancreatitis - resolving/resolved 3) duodenal perf - CT sowed fluid collection and duodenal extravasation, now with perc drain, o/w as per surgery 4) Hydronephrosis - hospitalist will deal with amado 5) Renal - improving 6) ID - abx as per ID, cx from fluid collection negative thus far, GS neg as well 7) constipation - prn laxatives 8) hiccups - come and go, overall better, suspect reflux related, will add QHS H2RA 9) Globus - anti-reflux tx, on PPI, also slightly improved 03/25/16 12:28 03/26/16 16:14 as above, new issue of decreased HB - no overt bleeding, stable BUN/Cr, query related to albumin infusion drawing fluid into vessels and dilutional affect 1) CBD stones - ERCp and stents, needs eval at approx 6 weeks 2) pancreatitis - resolving/resolved 3) duodenal perf - CT sowed fluid collection and duodenal extravasation, now with perc drain, o/w as per surgery, overall decreasing drainage 4) Hydronephrosis - hospitalist will deal with amado, BPH as per hospitalist 5) Renal - improving 6) ID - abx as per ID, cx from fluid collection negative thus far, GS neg as well 7) constipation - prn laxatives 8) hiccups - come and go, overall better, suspect reflux related, will add QHS H2RA 9) Globus - anti-reflux tx, on PPI, also slightly improved 10) anemia - I think prob dilutional, he is getting some blood today I agree with surgery that the pt seems to improve each day since perc drains placed. I agree with their plan to re-eval with contrast study next week Dr. Everett picking up inpt service at 5pm today Subjective: cc- duodenal perf, CBD stones, pancreatitis pt a bit more glum today, likely frustrated from length of stay no specific complaints his RLQ pain has lessened Objective: Vital Signs Temp Pulse Resp BP Pulse Ox 37.7 C 96 16 118/61 95 03/26/16 14:56 03/26/16 14:56 03/26/16 14:56 03/26/16 14:56 03/26/16 14:56 Microbiology 03/23/16 12:50 Gram Stain - Final Peritoneal Fluid - Aspirate Laboratory Results 03/26/16 04:48 03/26/16 04:48 03/25/16 03/26/16 03/27/16 05:59 05:59 05:59 Intake Total 2825 1839 1551 Output Total 2320 1700 420 Balance 623 102 7946 PT 16.9 SEC (12.0-15.0) H 03/22/16 17:15 INR 1.37 (0.83-1.16) H 03/22/16 17:15 A+Ox3 CTA S1S2 +BS, soft RLQ tender, less then yesterday Laboratory Tests 03/21/16 03/22/16 03/24/16 05:18 04:47 05:12 WBC 11.87 H 16.19 H Hgb Hct BUN 28 H Creatinine 1.8 H Total Bilirubin 0.4 Conjugated Bilirubin 0.3 Unconjugated Bilirubin 0.1 AST 30 ALT 35 Alkaline Phosphatase 85 03/25/16 03/25/16 03/26/16 04:43 15:40 04:48 WBC Hgb 7.3 L 6.6 L Hct 21.6 L 19.6 L BUN 33 H 37 H Creatinine 2.1 H 2.2 H 2.2 H Total Bilirubin Conjugated Bilirubin Unconjugated Bilirubin AST ALT Alkaline Phosphatase ICD10 Worksheet Patient Problems: Problems Problem Status Diagnosed Hypoxia Acute Pneumonia Acute
--- NOTE | 2016-03-26 18:52 | PCMIDPN ---
Assessment/Plan: #Davis-S E coli bacteremia, secondary to choledocholithiasis s/p ERCP. 03/09 and 03/21 blood cx demonstrate clearance. s/p 2 weeks of therapy at 03/21/16 # DU perf with obvious intra-abdominal spillage and subsequent identification of small leak 03/22 with perihepatic fluid collection status post drainage by IR now growing enterococcus. Having gradual clinical improvement --continue coverage with Zosyn and fluconazole, length of therapy not clear # Acute renal failure: Cr stable, continue renal dosed Zosyn --no urine eosinophils Meds Zosyn, 2.25gm IV q6h # antibiotic day 13 Fluconazole 200 mg IV daily, (antifungal, #13) Microbiology 03/21 blood cultures 2 sets: no growth 03/23 abdominal aspirate: 3+ GPCs, amp-S enterococcus Daughter at bedside and reviewed labs and clinical progress Subjective: less abdominal pain Objective: Vital Signs Temp Pulse Resp BP Pulse Ox 37.4 C 100 16 109/61 93 03/26/16 16:00 03/26/16 16:00 03/26/16 16:00 03/26/16 16:00 03/26/16 16:00 Microbiology 03/23/16 12:50 Gram Stain - Final Peritoneal Fluid - Aspirate Laboratory Results 03/26/16 04:48 03/26/16 04:48 03/25/16 03/26/16 03/27/16 05:59 05:59 05:59 Intake Total 2825 1839 3406 Output Total 2320 1700 870 Balance 390 906 9371 - Physical Exam General Appearance: alert, no apparent distress EENT: pale conjunctiva, dry mucous membranes, No scleral icterus Respiratory: other (shallow inspirations with decreased bs in the bases), No respiratory distress, No accessory muscle use Cardiac/Chest: regular rate, rhythm Extremities: pedal edema (4+) Abdomen: non-tender, soft, distended, other (R large CHARLIE with scant brown drainage, poor recording of I/Os) Male Genitalia: amado Neuro/Psych: alert, normal mood/affect, oriented x 3 ICD10 Worksheet Patient Problems: Problems Problem Status Diagnosed Hypoxia Acute Pneumonia Acute
[2016-03-26] MEDS: ACETAMINOPHEN 650 MG/20.3 ML UDCUP TUBE PRN (20:54)
[2016-03-27] MEDS: PIPERACILLIN/TAZO 2.25 GM/DEX 50 ML IV SCH ×4 (00:02→17:22)
[2016-03-27] MEDS: ACETAMINOPHEN 650 MG/20.3 ML UDCUP TUBE PRN ×2 (05:17→17:22)
[2016-03-27] MEDS: HEPARIN 5,000 UNIT/0.5 ML SYR SC SCH ×3 (05:18→20:35)
[2016-03-27] MEDS: NYSTATIN SUSP 500000 UNIT/5 ML UDCUP PO SCH ×4 (05:18→20:04)
[2016-03-27 05:41] LABS: ADD DIFF? YES; ADD MORPH? NO; ADD SCAN? NO; ATYPICAL LYMPHOCYTE FLAG 20 (0-99); FRAGMENT RBC FLAG 0 (0-99); HEMATOCRIT 22.7 % (40.0-51.0); HEMOGLOBIN 7.5 g/dL (13.7-17.5); LEFT SHIFT FLG 50 (0-99); LIPEMIA HEMOLYSIS FLAG 80 (0-99); MEAN CELL HEMOGLOBIN 30.4 pg (27.9-34.1); MEAN CELL VOLUME 91.9 fL (81.5-99.8); MEAN PLATELET VOLUME 10.1 fL (8.7-11.7); PLATELET CLUMPS FLAG 0 (0-99); PLATELET COUNT 347 10^3/uL (150-400); RED BLOOD CELL COUNT 2.47 10^6/uL (4.40-6.38)
[2016-03-27 05:54] LABS: ALANINE AMINOTRANSFERASE 38 IU/L (21-72); ALBUMIN 2.6 g/dL (3.5-5.0); ALKALINE PHOSPHATASE 114 IU/L (38-126); ANION GAP 11 mEq/L (8-16); ASPARTATE AMINOTRANSFERASE 33 IU/L (17-59); BILIRUBIN,TOTAL 0.7 mg/dL (0.1-1.4); CALCIUM 7.7 mg/dL (8.5-10.4); CARBON DIOXIDE 29 mEq/l (22-31); CHLORIDE 113 mEq/L (97-110); CREATININE 2.5 mg/dL (0.7-1.3); GLOMERULAR FILTRATION RATE 25; GLUCOSE 108 mg/dL (70-100); POTASSIUM 4.1 mEq/L (3.5-5.2); SODIUM 153 mEq/L (134-144); TOTAL PROTEIN 5.4 g/dL (6.3-8.2)
[2016-03-27] MEDS: IPRATROPIUM/ALBUTEROL 3 ML DEYVIAL IH SCH ×4 (06:03→21:58)
[2016-03-27 07:27] LABS: PLATELET ESTIMATE ADEQUATE (ADEQ)
[2016-03-27 07:28] LABS: HYPOCHROMIA 1+; POLYCHROMASIA 1+
[2016-03-27] MEDS: MAGNESIUM OXIDE 400 MG TAB TUBE SCH (10:12)
[2016-03-27] MEDS: FAMOTIDINE 20 MG/NACL 50 ML IV SCH (10:12)
[2016-03-27] MEDS: PANTOPRAZOLE SODIUM 40 MG in NS 100 ML IV SCH ×2 (10:30→20:04)
--- NOTE | 2016-03-27 11:11 | SOAPPROG ---
SOAP Progress Note Assessment/Plan: Assessment: 81 yo with duodenal perf s/p patch. s/p CT 03/22 w contrast extrav I recommend re-imaging on Tuesday or Tuesday Continue NPO Continue Wesley - restart Flomax when can take po. May consider clamping trials with Wesley to retrain bladder Feeds at goal S: Sitting in chair, pleasant but slightly grumpy. Daughter at bedside Abdomen soft Drains with serosanguinous fluid. No signs of bile or abscess Incision cdi Wesley with clear yellow urine Plan: 03/27/16 11:08 Objective: Vital Signs Temp Pulse Resp BP Pulse Ox 37.2 C 90 16 113/69 92 03/27/16 08:55 03/27/16 08:55 03/27/16 08:55 03/27/16 08:55 03/27/16 08:55 Microbiology 03/21/16 16:35 Blood Culture - Final Blood 03/21/16 16:05 Blood Culture - Final Blood 03/23/16 12:50 Gram Stain - Final Peritoneal Fluid - Aspirate Laboratory Results 03/27/16 04:56 03/27/16 04:56 03/26/16 03/27/16 03/28/16 05:59 05:59 05:59 Intake Total 1839 3406 Output Total 1700 1770 300 Balance 139 1636 -300 PT 16.9 SEC (12.0-15.0) H 03/22/16 17:15 INR 1.37 (0.83-1.16) H 03/22/16 17:15 ICD10 Worksheet Patient Problems: Problems Problem Status Diagnosed Hypoxia Acute Pneumonia Acute
[2016-03-27] MEDS: HYDROmorphONE/DILAUDID 1 MG/ML SYR IVP PRN ×2 (11:24→20:32)
[2016-03-27] MEDS: FLUCONAZOLE/NaCl 100 ML IV SCH (11:28)
--- NOTE | 2016-03-27 11:53 | SOAPPROG ---
SOMATTY Progress Note Assessment/Plan: Assessment: 1) CBD stones - ERCp and stents 2) pancreatitis - resolving/resolved 3) duodenal perf - CT sowed fluid collection and duodenal extravasation, now with perc drain, o/w as per surgery 4) Hydronephrosis - hospitalist will deal with amado 5) Renal - improving 6) ID - abx as per ID 7) constipation - prn laxatives 8) hiccups - come and go, overall better, suspect reflux related, 9) Globus - anti-reflux tx, on PPI, also slightly improved Plan: 1. No new recs 2. Management essentially through surgery and hospitalists 3. will eventually need ERC and biliary stent manipulation (can be 8-12 weeks post ERCP) - Will sign off, call with questions 03/27/16 11:51 Subjective: CC: feeling weak S: no fever no pain intermittent cough and sob, fleeting and self-limited no cough no diarrhea mild constipation wishes he could eat/drink Objective: Vital Signs Temp Pulse Resp BP Pulse Ox 37.2 C 90 18 113/69 87 L 03/27/16 08:55 03/27/16 11:43 03/27/16 11:43 03/27/16 08:55 03/27/16 11:43 Microbiology 03/21/16 16:35 Blood Culture - Final Blood 03/21/16 16:05 Blood Culture - Final Blood 03/23/16 12:50 Gram Stain - Final Peritoneal Fluid - Aspirate Laboratory Results 03/27/16 04:56 03/27/16 04:56 03/26/16 03/27/16 03/28/16 05:59 05:59 05:59 Intake Total 1839 3406 Output Total 1700 1770 300 Balance 139 1636 -300 PT 16.9 SEC (12.0-15.0) H 03/22/16 17:15 INR 1.37 (0.83-1.16) H 03/22/16 17:15 Physical Exam - Physical Exam EENT: PERRL/EOMI Neck: full range of motion Respiratory: lungs clear Cardiac/Chest: normal peripheral pulses Abdomen: normal bowel sounds, soft, No rebound, No ascites Skin: normal color Extremities: normal range of motion Neuro/Psych: no motor/sensory deficits ICD10 Worksheet Patient Problems: Problems Problem Status Diagnosed Hypoxia Acute Pneumonia Acute
--- NOTE | 2016-03-27 13:56 | HOSPPROG ---
Hospitalist Progress Note Assessment/Plan: 81-year-old male with an initial presentation of E coli bacteremia. He had removal of stones by ERCP, had a duodenal perforation, is status post abdominal surgery for repair of the duodenal perforation, and has had drains placed for a duodenal leak. He is on broad-spectrum antibiotics with a persistent leukocytosis, abdominal distention, peripheral edema, though in the last 24 hours may be slowly improving. Of note is the creatinine which has been rising along with an elevated sodium. Patient is new to me today. -new problems today of hypernatremia with a sodium of 154 and an elevated creatinine. The elevated creatinine is been discussed with Dr. Maegan Tejada and there does not appear to be any signs of AIN. There are no eosinophils. Clinically the patient appears to be dry with a dry mouth and a flat JVP. Plan is to add free water to his tube feedings to lower the sodium and follow the creatinine. He has peripheral edema secondary to 3rd spacing though appears to be intravascular dry. -sepsis with E coli bacteremia currently under treatment with broad-spectrum antibiotics -acute duodenal perforation and acute postop ileus, and acute pancreatitis. The duodenal perforation is under treatment with drains and the pancreatitis appears to be resolving. He currently has good bowel sounds and is moving his bowels as a liquid form approximately 5 times a day. He has a persistent leukocytosis and a recheck of his C difficile will be done. -persistent leukocytosis while under treatment with broad-spectrum antibiotics. Will continue to watch this. CT scan done yesterday showed no signs of an intra-abdominal abscess. No further imaging will be done today. This has been discussed with Dr. Rebollar who is planning to reimage in 1-2 days. -lower extremity edema probably secondary to acute pancreatitis and pressure on the lower extremity veins. Clinically he appears to have intravascular volume depletion. No diuretics will be used at this time. -acute kidney injury with a rising creatinine over the past 2 days. This is probably secondary to intravascular volume depletion and will be repleted by free water via the tube feedings. -severe protein caloric malnutrition: Treating with jejunal tube feedings. -atelectasis: Patient is actively using an incentive spirometer. Subjective: His reports he is feeling much improved today. He reports his abdomen is less distended and he is feeling slightly better. Denies chest pain shortness of breath he has some complaint of abdominal of back pain though this is his usual back pain. Objective: Vital Signs Temp Pulse Resp BP Pulse Ox 37.2 C 103 H 16 129/69 H 95 03/27/16 12:50 03/27/16 12:50 03/27/16 12:50 03/27/16 12:50 03/27/16 12:50 Microbiology 03/21/16 16:35 Blood Culture - Final Blood 03/21/16 16:05 Blood Culture - Final Blood 03/23/16 12:50 Gram Stain - Final Peritoneal Fluid - Aspirate Laboratory Results 03/27/16 04:56 03/27/16 04:56 03/26/16 03/27/16 03/28/16 05:59 05:59 05:59 Intake Total 1839 3406 Output Total 1700 1770 300 Balance 139 1636 -300 PT 16.9 SEC (12.0-15.0) H 03/22/16 17:15 INR 1.37 (0.83-1.16) H 03/22/16 17:15 Laboratory Tests 03/10/16 03/21/16 03/23/16 12:00 15:30 05:23 WBC 17.11 H Sodium Peritoneal Amylase Stool Occult Bld Scrn POSITIVE H C. difficile Tox (PCR) NEGATIVE 03/23/16 03/24/16 03/25/16 18:38 05:12 04:43 WBC 13.66 H 13.29 H Sodium 146 H 147 H Peritoneal Amylase 3197 H Stool Occult Bld Scrn C. difficile Tox (PCR) 03/26/16 03/27/16 04:48 04:56 WBC 12.55 H 14.69 H Sodium 151 H 153 H Peritoneal Amylase Stool Occult Bld Scrn C. difficile Tox (PCR) - Time Spent With Patient Time Spent with Patient: greater than 35 minutes Time Spent with Patient: Greater than 35 minutes spent on this patients care, greater than 50% of time spent counseling, educating, and coordinating care regarding the above mentioned plan. - Pending Discharge Pending Discharge Within 24 Hours: No Pending Discharge Within 48 Hours: No - Physical Exam Constitutional: chronically ill appearing Eyes: PERRL, anicteric sclera Ears, Nose, Mouth, Throat: dry mucous membranes, other (Tongue is dry and and crusted.) Cardiovascular: regular rate and rhythym, no murmur, rub, or gallop, systolic murmur Respiratory: reduced air movement, bronchial breath sounds Gastrointestinal: distension, other ([address] and draining well. No erythema about the insertion site. Surgical wound on the midline appears to be healing well without drainage. He has active bowel sounds.) Genitourinary: no bladder fullness, other (Wesley catheter is in place and draining well) Skin: other (Skin is warm and dry there is 4+ soft nontender pitting edema.) Musculoskeletal: generalized weakness Neurologic: AAOx3, CN II-XII Intact Psychiatric: interacting appropriately ICD10 Worksheet Patient Problems: Problems Problem Status Diagnosed Hypoxia Acute Pneumonia Acute
--- NOTE | 2016-03-27 13:57 | PCMIDPN ---
Assessment/Plan: #Davis-S E coli bacteremia, secondary to choledocholithiasis s/p ERCP. 03/09 and 03/21 blood cx demonstrate clearance. s/p 2 weeks of therapy at 03/21/16 # DU perf with obvious intra-abdominal spillage and subsequent identification of small leak 03/22 with perihepatic fluid collection status post drainage by IR now growing enterococcus. Clinically better but some concern over worsening laboratory values including WBC and creatinine --continue coverage with Zosyn and fluconazole, length of therapy not clear # Acute renal failure: Cr slightly up, continue renal dosed Zosyn. Unclear etiology may be related to volume status, antibiotic, ongoing intra-abdominal infection --no urine eosinophils # persistent diarrhea and slight trend up in WBC, okay to check C diff again last negative on 03/21/2016 Meds Zosyn, 2.25gm IV q6h # antibiotic day 14 Fluconazole 200 mg IV daily, (antifungal, #14) Microbiology 03/21 blood cultures 2 sets: no growth 03/23 abdominal aspirate: 3+ GPCs, amp-S enterococcus Case discussed with Dr. Ifeoma Rebollar and Dr. Aron Delgado Subjective: Patient with complaints about the comfort of the bed. Abdominal pain generally is better. Objective: Vital Signs Temp Pulse Resp BP Pulse Ox 37.2 C 103 H 16 129/69 H 95 03/27/16 12:50 03/27/16 12:50 03/27/16 12:50 03/27/16 12:50 03/27/16 12:50 Microbiology 03/21/16 16:35 Blood Culture - Final Blood 03/21/16 16:05 Blood Culture - Final Blood 03/23/16 12:50 Gram Stain - Final Peritoneal Fluid - Aspirate Laboratory Results 03/27/16 04:56 03/27/16 04:56 03/26/16 03/27/16 03/28/16 05:59 05:59 05:59 Intake Total 1839 3406 Output Total 1700 1770 300 Balance 139 1636 -300 - Physical Exam General Appearance: alert, no apparent distress, obese, other (slight ill appearing, but generally appearing more vigorous the last couple days) Respiratory: coarse breath sounds, No accessory muscle use Cardiac/Chest: tachycardia Extremities: pedal edema (3-4+) Abdomen: non-tender, soft, distended (Distention 50% improved today), other ( Midline incision without erythema, right smaller CHARLIE drain with serosanguineous drainage, right larger CHARLIE drain with light brown fluid), No rebound Male Genitalia: amado Neuro/Psych: alert, normal mood/affect, oriented x 3 ICD10 Worksheet Patient Problems: Problems Problem Status Diagnosed Hypoxia Acute Pneumonia Acute
[2016-03-27] MEDS: MELATONIN 3 MG TAB PO SCH (20:04)
[2016-03-28] MEDS: PIPERACILLIN/TAZO 2.25 GM/DEX 50 ML IV SCH ×5 (01:19→23:19)
[2016-03-28] MEDS: ACETAMINOPHEN 650 MG/20.3 ML UDCUP TUBE PRN ×2 (01:22→16:43)
[2016-03-28] MEDS: HYDROmorphONE/DILAUDID 1 MG/ML SYR IVP PRN (01:26)
[2016-03-28] MEDS: NYSTATIN SUSP 500000 UNIT/5 ML UDCUP PO SCH ×4 (04:51→22:42)
[2016-03-28] MEDS: HEPARIN 5,000 UNIT/0.5 ML SYR SC SCH ×3 (04:51→22:42)
[2016-03-28 05:15] LABS: ADD DIFF? YES; ADD MORPH? NO; ADD SCAN? NO; ATYPICAL LYMPHOCYTE FLAG 10 (0-99); FRAGMENT RBC FLAG 0 (0-99); HEMATOCRIT 22.7 % (40.0-51.0); HEMOGLOBIN 7.7 g/dL (13.7-17.5); LEFT SHIFT FLG 20 (0-99); LIPEMIA HEMOLYSIS FLAG 90 (0-99); MEAN CELL HEMOGLOBIN CONCENTR. 33.9 g/dL (32.4-36.7); MEAN CELL VOLUME 91.5 fL (81.5-99.8); PLATELET CLUMPS FLAG 10 (0-99); PLATELET COUNT 394 10^3/uL (150-400); RED BLOOD CELL COUNT 2.48 10^6/uL (4.40-6.38)
[2016-03-28 05:28] LABS: ALANINE AMINOTRANSFERASE 36 IU/L (21-72); ALBUMIN 2.6 g/dL (3.5-5.0); ALKALINE PHOSPHATASE 104 IU/L (38-126); ANION GAP 12 mEq/L (8-16); ASPARTATE AMINOTRANSFERASE 30 IU/L (17-59); BILIRUBIN,TOTAL 0.6 mg/dL (0.1-1.4); CALCIUM 7.9 mg/dL (8.5-10.4); CARBON DIOXIDE 26 mEq/l (22-31); CHLORIDE 115 mEq/L (97-110); CREATININE 2.3 mg/dL (0.7-1.3); GLOMERULAR FILTRATION RATE 28; GLUCOSE 138 mg/dL (70-100); POTASSIUM 4.2 mEq/L (3.5-5.2); SODIUM 153 mEq/L (134-144); TOTAL PROTEIN 5.6 g/dL (6.3-8.2)
[2016-03-28 05:53] LABS: HYPOCHROMIA 2+; MACROCYTES 1+; PLATELET ESTIMATE ADEQUATE (ADEQ); TOXIC GRANULATION PRESENT
[2016-03-28] MEDS: IPRATROPIUM/ALBUTEROL 3 ML DEYVIAL IH SCH ×4 (06:07→23:48)
[2016-03-28] MEDS: MAGNESIUM OXIDE 400 MG TAB TUBE SCH (09:21)
[2016-03-28] MEDS: FLUCONAZOLE/NaCl 100 ML IV SCH (09:21)
--- NOTE | 2016-03-28 09:39 | SOAPPROG ---
SOAP Progress Note Assessment/Plan: Assessment: 81 yo with duodenal perf s/p patch. s/p CT 03/22 w contrast extrav I recommend re-imaging on Tuesday or Tuesday - WBC stable and cr down today Continue NPO Continue Wesley - restart Flomax when can take po. May consider clamping trials with Wesley to retrain bladder Feeds at goal S: Sitting in chair, pleasant but slightly grumpy. Daughter at bedside Abdomen soft Drains with scant serosanguinous fluid. No signs of bile or abscess Incision cdi Wesley with clear yellow urine Plan: 03/27/16 11:08 03/28/16 09:38 Objective: Vital Signs Temp Pulse Resp BP Pulse Ox 37.2 C 96 18 133/78 H 98 03/28/16 07:47 03/28/16 07:47 03/28/16 07:47 03/28/16 07:47 03/28/16 07:47 Microbiology 03/21/16 16:35 Blood Culture - Final Blood 03/21/16 16:05 Blood Culture - Final Blood Laboratory Results 03/28/16 04:26 03/28/16 04:26 03/27/16 03/28/16 03/29/16 05:59 05:59 05:59 Intake Total 3406 2287 Output Total 1770 2400 Balance 1636 -113 PT 16.9 SEC (12.0-15.0) H 03/22/16 17:15 INR 1.37 (0.83-1.16) H 03/22/16 17:15 ICD10 Worksheet Patient Problems: Problems Problem Status Diagnosed Hypoxia Acute Pneumonia Acute
[2016-03-28] MEDS: PANTOPRAZOLE SODIUM 40 MG in NS 100 ML IV SCH ×2 (10:31→19:59)
[2016-03-28] MEDS: FAMOTIDINE 20 MG/NACL 50 ML IV SCH (11:14)
--- NOTE | 2016-03-28 13:37 | HOSPPROG ---
Hospitalist Progress Note Assessment/Plan: 81-year-old male with an initial presentation of E coli bacteremia. He had removal of stones by ERCP, had a duodenal perforation, is status post abdominal surgery for repair of the duodenal perforation, and has had drains placed for a duodenal leak. He is on broad-spectrum antibiotics with a persistent leukocytosis, abdominal distention, peripheral edema, though in the last 24 hours may be slowly improving. Of note is the creatinine which has been rising along with an elevated sodium. -new problems today of hypernatremia with a sodium of 154 and an elevated creatinine. The elevated creatinine is been discussed with Dr. Maegan Tejada and there does not appear to be any signs of AIN. There are no eosinophils. the patient appears dry today again despite free water yesterday via tube feedings. He continues to have 5-7 liquid stools a day and also has insensible losses. A calculation of free water deficit places him at a minimum of 3-4 liters deficit. Plan: replete with D5W IV fluid, and assess changes of Na+ and Creatinine. -sepsis with E coli bacteremia currently under treatment with broad-spectrum antibiotics. White count is stable but elevated at 14,600 -acute duodenal perforation and acute postop ileus, and acute pancreatitis. The duodenal perforation is under treatment with drains and the pancreatitis appears to be resolving. He currently has good bowel sounds and is moving his bowels as a liquid form approximately 5 times a day. He has a persistent leukocytosis and a recheck of his C difficile was negative on 03/27. Per surgery we will continue NPO and reimage in 2-3 days -persistent leukocytosis while under treatment with broad-spectrum antibiotics. Will continue to watch this. CT scan done yesterday showed no signs of an intra-abdominal abscess. No further imaging will be done today. This has been discussed with Dr. Rebollar who is planning to reimage in 2-3 days -lower extremity edema probably secondary to acute pancreatitis and pressure on the lower extremity veins. Clinically he appears to have intravascular volume depletion. No diuretics will be used at this time. -acute kidney injury with a rising creatinine over the past 2 days. This is probably secondary to intravascular volume depletion and will be repleted by free water via the tube feedings. Will reassess creatinine as we replace free water -severe protein caloric malnutrition: Treating with jejunal tube feedings. -atelectasis: Patient is actively using an incentive spirometer. Today patient has a complaint of an intermittent cough which is nonproductive. Will check a portable chest x-ray Subjective: Continues to complain of a dry mouth. He is having 5-7 liquid stools a day. No complaints of increasing abdominal pain or shortness of breath he does report he is having a cough which is nonproductive Objective: Vital Signs Temp Pulse Resp BP Pulse Ox 36.9 C 105 H 20 138/75 H 95 03/28/16 12:31 03/28/16 12:31 03/28/16 12:31 03/28/16 12:31 03/28/16 12:31 Microbiology 03/21/16 16:35 Blood Culture - Final Blood 03/21/16 16:05 Blood Culture - Final Blood Laboratory Results 03/28/16 04:26 03/28/16 04:26 03/27/16 03/28/16 03/29/16 05:59 05:59 05:59 Intake Total 3406 2287 Output Total 1770 2400 Balance 1636 -113 PT 16.9 SEC (12.0-15.0) H 03/22/16 17:15 INR 1.37 (0.83-1.16) H 03/22/16 17:15 - Time Spent With Patient Time Spent with Patient: greater than 35 minutes Time Spent with Patient: Greater than 35 minutes spent on this patients care, greater than 50% of time spent counseling, educating, and coordinating care regarding the above mentioned plan. - Physical Exam Constitutional: no apparent distress Eyes: PERRL, anicteric sclera Ears, Nose, Mouth, Throat: dry mucous membranes Cardiovascular: regular rate and rhythym, no murmur, rub, or gallop Respiratory: no respiratory distress, no rales or rhonchi, reduced air movement (Decreased air movement in the bases.) Gastrointestinal: distension, other (Bowel sounds are present. Wound appears to be healing well. Drains are draining less than yesterday. There are no specific new areas of increased tenderness.) Genitourinary: no bladder fullness, other (Wesley is in place) Skin: warm Neurologic: AAOx3, CN II-XII Intact Psychiatric: interacting appropriately ICD10 Worksheet Patient Problems: Problems Problem Status Diagnosed Hypoxia Acute Pneumonia Acute
[2016-03-28] MEDS: D5W 1,000 ML IV SCH ×2 (14:21→22:28)
--- NOTE | 2016-03-28 15:25 | PCMIDPN ---
Assessment/Plan: # DU perf with obvious intra-abdominal spillage and subsequent identification of small leak 03/22 with perihepatic fluid abscess status post IR drainage 03/23 meade-susceptible enterococcus. Clinically stable, but I have some concern over persistent leukocytosis and bandemia, and low-grade temperature (37.9). Poor records of I/Os but during my exam today in the afternoon there was 100 cc in the Large bulb of light brown cloudy material --continue coverage with Zosyn and fluconazole, length of therapy not clear --planned CT imaging in the next couple days. # Leukocytosis with persistent 19% bands, low-grade temperatures # Acute renal failure: Cr slightly down today. # persistent diarrhea likely due to tube feeds, C diff negative 03/27/2016 #Meade-S E coli bacteremia, secondary to choledocholithiasis s/p ERCP. 03/09 and 03/21 blood cx demonstrate clearance. s/p 2 weeks of therapy at 03/21/16 Meds Zosyn, 2.25gm IV q6h # antibiotic day 15 Fluconazole 200 mg IV daily, (antifungal, #15) Microbiology 03/21 blood cultures 2 sets: no growth 03/23 abdominal aspirate: 3+ GPCs, amp-S enterococcus Case discussed with Dr. Ifeoma Rebollar and Dr. Aron Delgado Subjective: Very downtrodden today patient is very down drawn today, feels weak. Primary pain is in low back. Minimal abdominal pain. Objective: Vital Signs Temp Pulse Resp BP Pulse Ox 36.9 C 105 H 20 138/75 H 95 03/28/16 12:31 03/28/16 12:31 03/28/16 12:31 03/28/16 12:31 03/28/16 12:31 Laboratory Results 03/28/16 04:26 03/28/16 04:26 03/27/16 03/28/16 03/29/16 05:59 05:59 05:59 Intake Total 3406 2287 Output Total 1770 2400 Balance 1636 -113 - Physical Exam General Appearance: alert, no apparent distress, obese EENT: dry mucous membranes Respiratory: other (Decreased breath sounds in the base), No accessory muscle use Neck: supple Cardiac/Chest: tachycardia Extremities: pedal edema (3 to 4+ pitting lower extremity edema, unchanged) Abdomen: non-tender, soft, distended (Slight), other (Large CHARLIE bulb with approximately 100 cc of light brown cloudy fluid, scant serosanguineous fluid is smaller CHARLIE), No normal bowel sounds (Decreased bowel sounds) Skin: pallor, other (Midline incision on abdomen healing well without erythema or discharge), No rash Neuro/Psych: alert, oriented x 3, depressed affect - Line/s PIV Lines: other (Right forearm), No drainage, No erythema ICD10 Worksheet Patient Problems: Problems Problem Status Diagnosed Hypoxia Acute Pneumonia Acute
[2016-03-28] MEDS: MELATONIN 3 MG TAB PO SCH (22:42)
[2016-03-29] MEDS: NYSTATIN SUSP 500000 UNIT/5 ML UDCUP PO SCH ×4 (05:38→20:47)
[2016-03-29] MEDS: PIPERACILLIN/TAZO 2.25 GM/DEX 50 ML IV SCH ×3 (05:38→17:45)
[2016-03-29] MEDS: HEPARIN 5,000 UNIT/0.5 ML SYR SC SCH ×3 (05:38→20:47)
[2016-03-29] MEDS: D5W 1,000 ML IV SCH (05:47)
[2016-03-29 05:52] LABS: ALANINE AMINOTRANSFERASE 32 IU/L (21-72); ALBUMIN 2.2 g/dL (3.5-5.0); ALKALINE PHOSPHATASE 87 IU/L (38-126); ANION GAP 11 mEq/L (8-16); ASPARTATE AMINOTRANSFERASE 30 IU/L (17-59); BILIRUBIN,TOTAL 0.7 mg/dL (0.1-1.4); CALCIUM 7.8 mg/dL (8.5-10.4); CARBON DIOXIDE 26 mEq/l (22-31); CHLORIDE 112 mEq/L (97-110); CREATININE 2.1 mg/dL (0.7-1.3); GLOMERULAR FILTRATION RATE 31; GLUCOSE 126 mg/dL (70-100); POTASSIUM 3.7 mEq/L (3.5-5.2); SODIUM 149 mEq/L (134-144); TOTAL PROTEIN 5.3 g/dL (6.3-8.2)
[2016-03-29 05:53] LABS: ABSOLUTE NRBC COUNT 0.02 10^3/uL (0-0.01); ADD DIFF? YES; ADD MORPH? NO; ADD SCAN? NO; ATYPICAL LYMPHOCYTE FLAG 40 (0-99); FRAGMENT RBC FLAG 0 (0-99); HEMATOCRIT 22.9 % (40.0-51.0); HEMOGLOBIN 7.7 g/dL (13.7-17.5); LEFT SHIFT FLG 20 (0-99); LIPEMIA HEMOLYSIS FLAG 80 (0-99); MEAN CELL HEMOGLOBIN 30.8 pg (27.9-34.1); MEAN CELL HEMOGLOBIN CONCENTR. 33.6 g/dL (32.4-36.7); MEAN CELL VOLUME 91.6 fL (81.5-99.8); MEAN PLATELET VOLUME 10.1 fL (8.7-11.7); NRBC-AUTO% 0.1 % (0.0-0.2); PLATELET CLUMPS FLAG 0 (0-99); PLATELET COUNT 427 10^3/uL (150-400); RED CELL DISTRIBUTION WIDTH 15.8 % (11.5-15.2)
[2016-03-29] MEDS: IPRATROPIUM/ALBUTEROL 3 ML DEYVIAL IH SCH ×4 (05:56→23:18)
[2016-03-29 06:19] LABS: PLATELET ESTIMATE INCREASED (ADEQ)
[2016-03-29 06:20] LABS: HYPOCHROMIA 2+
[2016-03-29 06:21] LABS: MACROCYTES 1+; MICROCYTES 1+; POLYCHROMASIA 1+
[2016-03-29 06:24] LABS: TARGET CELLS 1+
[2016-03-29 06:25] LABS: SCHISTOCYTES 1+
[2016-03-29] MEDS: FAMOTIDINE 20 MG/NACL 50 ML IV SCH (08:57)
[2016-03-29] MEDS: PANTOPRAZOLE SODIUM 40 MG in NS 100 ML IV SCH ×2 (09:29→20:46)
[2016-03-29] MEDS ORDERED: PANCREASE FOR DOBHOFF 50 ML BTL TUBE ONE (10:00)
[2016-03-29] MEDS: FLUCONAZOLE/NaCl 100 ML IV SCH (10:21)
--- NOTE | 2016-03-29 10:49 | PCMIDPN ---
Assessment/Plan: Assessment: E coli bacteremia-source likely the biliary tract as a high burden of common bile duct stones and debris were discovered and removed on ERCP. Significant complications from the ERCP including duodenal perforation and continued bile leak. He continues to have significant dark bilious fluid collect in his CHARLIE bulb. Awaiting read of CT scan to be done later today. In the meantime, he continues on both Zosyn and fluconazole. Plan: 1. Continue intravenous zosyn and fluconazole. Duration to be determined by the progress of his bowel and bile leaks. 2. Follow clinical course. Subjective: Patient is tired. He is not is a poor mood but feels beaten down by the length of time he has been hospitalized. No subjective fevers or chills. Was able to get up and shower today. Objective: Zosyn #16 fluconazole #16 Vital Signs Temp Pulse Resp BP Pulse Ox 37.2 C 61 12 124/81 H 100 03/29/16 08:00 03/29/16 10:35 03/29/16 10:35 03/29/16 08:00 03/29/16 10:35 Microbiology 03/23/16 12:50 Gram Stain - Final Peritoneal Fluid - Aspirate Laboratory Results 03/29/16 05:13 03/29/16 05:13 03/28/16 03/29/16 03/30/16 05:59 05:59 05:59 Intake Total 2287 4653 Output Total 2400 2990 1080 Balance -113 1663 -1080 - Physical Exam General Appearance: WD/WN, alert, no apparent distress, non-toxic Respiratory: lungs clear, normal breath sounds, No respiratory distress Cardiac/Chest: regular rate, rhythm, No tachycardia Abdomen: soft, other (CHARLIE bulb with brackish fluid), No non-tender, No mass Skin: normal color, warm/dry, No rash Neuro/Psych: alert, normal mood/affect, oriented x 3 ICD10 Worksheet Patient Problems: Problems Problem Status Diagnosed Hypoxia Acute Pneumonia Acute
[2016-03-29] MEDS: MAGNESIUM OXIDE 400 MG TAB TUBE SCH (10:55)
--- NOTE | 2016-03-29 11:08 | SOAPPROG ---
SOAP Progress Note Assessment/Plan: Assessment/Plan - 81yo M POD#14 ex-lap, repair duodenal perf, omental patch, J-tube - Over the weekend, WBC has risen to 14k. Abdominal exam is about the same, JPs draining what appears to be old bile. Given WBC rise will repeat scan today with PO contrast. Hoping that the leak has sealed. If sealed and residual fluid may just need washout and diversion. If still large leak will need pyloric exclusion and GJ. Will follow up after scan 03/16/16 13:25 03/18/16 11:00 03/19/16 12:10 03/22/16 10:11 03/22/16 14:17 03/23/16 15:52 03/24/16 10:34 03/25/16 13:54 03/26/16 11:15 03/26/16 11:17 03/29/16 11:06 Subjective: Feels about the same, still has some abdominal pain Objective: Vital Signs Temp Pulse Resp BP Pulse Ox 37.2 C 61 12 124/81 H 100 03/29/16 08:00 03/29/16 10:35 03/29/16 10:35 03/29/16 08:00 03/29/16 10:35 Microbiology 03/23/16 12:50 Gram Stain - Final Peritoneal Fluid - Aspirate Laboratory Results 03/29/16 05:13 03/29/16 05:13 03/28/16 03/29/16 03/30/16 05:59 05:59 05:59 Intake Total 2287 4653 Output Total 2400 2990 1080 Balance -113 1663 -1080 PT 16.9 SEC (12.0-15.0) H 03/22/16 17:15 INR 1.37 (0.83-1.16) H 03/22/16 17:15 ICD10 Worksheet Patient Problems: Problems Problem Status Diagnosed Hypoxia Acute Pneumonia Acute
--- NOTE | 2016-03-29 12:51 | CT ---
CT Scan of the Abdomen and Pelvis (Without IV Contrast) Clinical Indications: Follow up duodenal perforation. Comparison: March 22, 2016. Technique: No intravenous contrast was given. Multidetector helical CT imaging was performed from t he diaphragm to the symphysis pubis. Dose reduction techniques were utilized. Findings: Bilateral pleural effusions persists. The intraperitoneal fluid around the edge of the lucinda er with a small amount of gas has decreased from the prior examination from 34 mm from the liver edge to 15 mm from the liver edge. The pigtail in the retroperitoneal collection has minimally decreased the retroperitoneal fluid and gas collections. There is still a moderate amount of fluid and gas in t he retroperitoneum. The collection anterior to the duodenum has decreased slightly, and there is an a djacent drain. It previously measured 8.3 x 3.1 cm with an air-fluid level. There is a trace amount o f fluid inferiorly and it now measures 7.0 x 1.7 cm. 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 Midline ricarda are again present. A Wesley is present in the bladder. Diffuse anasarca p ersists. A pigtail catheter left of midline serving as a jejunostomy is unchanged. Bones are unremarkable. Impression: 1. Small decrease in the perihepatic fluid collection. 2. Minimal decrease in the retroperitoneal fluid collection with interval placement of a drain compar ed to March 22, 2016. Still moderate amount of complicated fluid and gas in the retroperitoneum. 3. Jejunostomy midline ricarda and upper surgical abdominal drain are unchanged. Mild decrease in the fluid collection anterior to the surgical drain.
--- NOTE | 2016-03-29 16:14 | HOSPPROG ---
Hospitalist Progress Note Assessment/Plan: 81-year-old male with an initial presentation of E coli bacteremia. He had removal of stones by ERCP, had a duodenal perforation, is status post abdominal surgery for repair of the duodenal perforation, and has had drains placed for a duodenal leak. He is on broad-spectrum antibiotics with a persistent leukocytosis, abdominal distention, peripheral edema, though in the last 24 hours may be slowly improving. Last 24 hours his white count has been stable he has been afebrile, and the drains continued to put out fluid. -sepsis with E coli bacteremia currently under treatment with broad-spectrum antibiotics. White count is stable but elevated at 14,600. Discussed with surgery and the drain site will be evaluated by a fistulogram today or tomorrow. Surgeries desire is to watch as he is doing well, and the drains are continuing to drain, and the abscess site are getting smaller on CT scans. -hypernatremia: Initially at 1:55 a.m. an now 149. I will continue free water for another 24 hours to decrease the sodium to approximately 145. The creatinine is also declining with free water. Once the sodium is normalized diuresis can begin. Expect that diuresis will start tomorrow. -acute duodenal perforation and acute postop ileus, and acute pancreatitis. The duodenal perforation is under treatment with drains and the pancreatitis appears to be resolving. He currently has good bowel sounds and is moving his bowels as a liquid form approximately 5 times a day. He is currently NPO per surgery. -persistent diarrhea: This is possibly bile salt diarrhea and cholestyramine could be considered though it cannot be given through a Dobhoff for a feeding tube. Thus will have to tolerate the diarrhea for now. -persistent leukocytosis while under treatment with broad-spectrum antibiotics. Will continue to watch this. Repeat CT scan today shows that the abscess sites are smaller and there is no signs of an intra-abdominal abscess. -lower extremity edema probably secondary to acute pancreatitis and pressure on the lower extremity veins. Clinically he appears to have intravascular volume depletion. Will use diuretics when the free water is repleted. -acute kidney injury with a rising creatinine over the past 2 days. Creatinine is declining with the use of free water. -severe protein caloric malnutrition: Treating with jejunal tube feedings. -atelectasis: Patient is actively using an incentive spirometer. Today patient has a complaint of an intermittent cough which is nonproductive. Will check a portable chest x-ray Case reviewed with Infectious Disease and surgery today along with the CT scans were reviewed with Radiology. Time 55 minutes Subjective: Complains of a slight cough intermittently that is nonproductive he feels uncomfortable but there has been no increases in pain. Denies chest pain Objective: Vital Signs Temp Pulse Resp BP Pulse Ox 37.3 C 96 16 126/78 H 94 03/29/16 15:20 03/29/16 15:20 03/29/16 15:20 03/29/16 15:20 03/29/16 15:20 Microbiology 03/23/16 12:50 Gram Stain - Final Peritoneal Fluid - Aspirate Laboratory Results 03/29/16 05:13 03/29/16 05:13 03/28/16 03/29/16 03/30/16 05:59 05:59 05:59 Intake Total 2287 4653 Output Total 2400 2990 1080 Balance -113 1663 -1080 PT 16.9 SEC (12.0-15.0) H 03/22/16 17:15 INR 1.37 (0.83-1.16) H 03/22/16 17:15 - Time Spent With Patient Time Spent with Patient: greater than 35 minutes Time Spent with Patient: Greater than 35 minutes spent on this patients care, greater than 50% of time spent counseling, educating, and coordinating care regarding the above mentioned plan. - Physical Exam Constitutional: chronically ill appearing Eyes: PERRL, anicteric sclera Ears, Nose, Mouth, Throat: moist mucous membranes, hearing normal Cardiovascular: regular rate and rhythym, no murmur, rub, or gallop Respiratory: no respiratory distress, no rales or rhonchi Gastrointestinal: distension, other (Surgical wound is healing well. The 2 drains continued to drain he is tender throughout the abdomen especially along the surgical site without rebound. Bowel sounds are active) Genitourinary: no bladder fullness, other (Wesley is in place and draining well) Skin: warm Musculoskeletal: generalized weakness Neurologic: AAOx3, CN II-XII Intact Psychiatric: interacting appropriately ICD10 Worksheet Patient Problems: Problems Problem Status Diagnosed Hypoxia Acute Pneumonia Acute
[2016-03-29] MEDS: MELATONIN 3 MG TAB PO SCH (20:47)
[2016-03-30] MEDS: PIPERACILLIN/TAZO 2.25 GM/DEX 50 ML IV SCH ×5 (01:14→23:00)
[2016-03-30] MEDS: D5W 1,000 ML IV SCH ×3 (04:30→23:00)
[2016-03-30] MEDS: IPRATROPIUM/ALBUTEROL 3 ML DEYVIAL IH SCH ×4 (05:15→21:33)
[2016-03-30 06:15] LABS: ADD DIFF? YES; ADD MORPH? NO; ADD SCAN? NO; ATYPICAL LYMPHOCYTE FLAG 0 (0-99); FRAGMENT RBC FLAG 0 (0-99); HEMATOCRIT 23.4 % (40.0-51.0); HEMOGLOBIN 7.5 g/dL (13.7-17.5); LEFT SHIFT FLG 30 (0-99); LIPEMIA HEMOLYSIS FLAG 80 (0-99); MEAN CELL HEMOGLOBIN 29.5 pg (27.9-34.1); MEAN CELL HEMOGLOBIN CONCENTR. 32.1 g/dL (32.4-36.7); MEAN CELL VOLUME 92.1 fL (81.5-99.8); MEAN PLATELET VOLUME 9.9 fL (8.7-11.7); PLATELET CLUMPS FLAG 10 (0-99); PLATELET COUNT 451 10^3/uL (150-400); RED BLOOD CELL COUNT 2.54 10^6/uL (4.40-6.38); RED CELL DISTRIBUTION WIDTH 15.8 % (11.5-15.2)
[2016-03-30] MEDS: HEPARIN 5,000 UNIT/0.5 ML SYR SC SCH ×3 (06:28→23:01)
[2016-03-30] MEDS: NYSTATIN SUSP 500000 UNIT/5 ML UDCUP PO SCH ×4 (06:28→23:01)
[2016-03-30 07:02] LABS: HYPOCHROMIA 1+; PLATELET ESTIMATE INCREASED (ADEQ); POLYCHROMASIA 1+
[2016-03-30 07:19] LABS: ANION GAP 12 mEq/L (8-16); CALCIUM 7.9 mg/dL (8.5-10.4); CARBON DIOXIDE 26 mEq/l (22-31); CHLORIDE 110 mEq/L (97-110); CREATININE 2.1 mg/dL (0.7-1.3); GLOMERULAR FILTRATION RATE 31; GLUCOSE 121 mg/dL (70-100); POTASSIUM 3.6 mEq/L (3.5-5.2); SODIUM 148 mEq/L (134-144)
[2016-03-30] MEDS: MAGNESIUM OXIDE 400 MG TAB TUBE SCH (07:51)
[2016-03-30] MEDS: FAMOTIDINE 20 MG/NACL 50 ML IV SCH (07:51)
[2016-03-30] MEDS: PANTOPRAZOLE SODIUM 40 MG in NS 100 ML IV SCH ×2 (08:19→23:00)
[2016-03-30] MEDS: FLUCONAZOLE/NaCl 100 ML IV SCH (09:04)
[2016-03-30] MEDS: DIPHENOXYLATE/ATROPINE LOMOTIL 1 TAB PO PRN ×2 (10:41→23:01)
--- NOTE | 2016-03-30 11:11 | SOAPPROG ---
SOAP Progress Note Assessment/Plan: Assessment/Plan - 81yo M POD#15 ex-lap, repair duodenal perf, omental patch, J-tube - Scan yesterday shows interval decrease in all fluid collections and no extrav from 2nd portion of duo adjacent to repair. Abdominal exam remains reassuring and IR placed CHARLIE continues to drain consistent fluid. Given improvement ok with starting clears today. Have asked him to go slow but very happy with results of scan uesterday. Will need to cont TFs until taking adequate PO but clears is a good start. Will also add lomotil to help slow transit as he is having many BMs throughout the day/night. 03/16/16 13:25 03/18/16 11:00 03/19/16 12:10 03/22/16 10:11 03/22/16 14:17 03/23/16 15:52 03/24/16 10:34 03/25/16 13:54 03/26/16 11:15 03/26/16 11:17 03/29/16 11:06 03/30/16 11:08 Subjective: No new complaints. Eager to be more mobile Objective: Vital Signs Temp Pulse Resp BP Pulse Ox 37.1 C 98 16 114/67 95 03/30/16 08:00 03/30/16 08:00 03/30/16 08:00 03/30/16 08:00 03/30/16 08:00 Microbiology 03/23/16 12:50 Gram Stain - Final Peritoneal Fluid - Aspirate Laboratory Results 03/30/16 05:33 03/30/16 05:33 03/29/16 03/30/16 03/31/16 05:59 05:59 05:59 Intake Total 4653 1315 Output Total 2990 2740 Balance 1663 -1425 PT 16.9 SEC (12.0-15.0) H 03/22/16 17:15 INR 1.37 (0.83-1.16) H 03/22/16 17:15 ICD10 Worksheet Patient Problems: Problems Problem Status Diagnosed Hypoxia Acute Pneumonia Acute
--- NOTE | 2016-03-30 11:34 | HOSPPROG ---
Hospitalist Progress Note Assessment/Plan: ASSESSMENT/PLAN: # duodenal perforation status post repair with omental patch - has 2 CHARLIE drains, still putting out - Enterococcus in peritoneal aspirate - continue Zosyn, fluconazole per ID - rising platelets, persistent leukocytosis noted - clears per surgery # diarrhea - Lomotil started # pancreatitis - resolving # E coli bacteremia due to biliary stones - status post ERCP with extraction of stones - currently on Zosyn # sepsis due to E coli bacteremia # anemia # hypernatremia - increase free water flushes, cont D5W, follow # acute kidney injury - improving from a few days ago; likely component of ATN currently - suspect this is hemodynamic in nature - continue nutrition, IV fluids - avoid nephrotoxins # severe protein calorie malnutrition: Tube feeds # BPH/urinary retention - continue Wesley for now, especially given kidney injury # FCFT # SQH for VTE ppx SUBJECTIVE: Started clears today; abdominal pain tolerable OBJECTIVE: Vitals reviewed Comfortable, no acute distress Regular rate and rhythm, no murmurs rubs or gallops No respiratory distress, lungs clear to auscultation bilaterally; no wheezes rales or rhonchi Abdomen with midline incision, J-tube, 2 right-sided drains in place 1 with bilious fluid LABORATORY DATA: Reviewed IMAGING: CT reviewed-interval decrease in fluid collections MICROBIOLOGY: E coli bacteremia, Enterococcus in peritoneal aspirate Objective: Vital Signs Temp Pulse Resp BP Pulse Ox 37.1 C 98 16 114/67 95 03/30/16 08:00 03/30/16 08:00 03/30/16 08:00 03/30/16 08:00 03/30/16 08:00 Microbiology 03/23/16 12:50 Gram Stain - Final Peritoneal Fluid - Aspirate Laboratory Results 03/30/16 05:33 03/30/16 05:33 03/29/16 03/30/16 03/31/16 05:59 05:59 05:59 Intake Total 4653 1315 Output Total 2990 2740 Balance 1663 -1425 PT 16.9 SEC (12.0-15.0) H 03/22/16 17:15 INR 1.37 (0.83-1.16) H 03/22/16 17:15 ICD10 Worksheet Patient Problems: Problems Problem Status Diagnosed Hypoxia Acute Pneumonia Acute
--- NOTE | 2016-03-30 18:43 | PCMIDPN ---
Assessment/Plan: # DU perf with obvious intra-abdominal spillage and subsequent identification of small leak 03/22 with perihepatic fluid abscess status post IR drainage 03/23 meade-susceptible enterococcus. Persistent bandemia but total white count down a bit. Persistent low-grade temperatures and intermittent tachycardia. Slightly improved renal function. Reviewed CT scan with Radiology from 03/29 and there is persistent perihepatic fluid but it is a smaller area. No clear evidence of persistent leak. --continue antibiotic therapy --discussed above findings/concern with surgical team # Leukocytosis with persistent 19% bands, low-grade temperatures # Acute renal failure: Further improvement in the creatinine, no dose change in Zosyn as of yet # persistent diarrhea likely due to tube feeds, C diff negative 03/27/2016 #Meade-S E coli bacteremia, secondary to choledocholithiasis s/p ERCP. 03/09 and 03/21 blood cx demonstrate clearance. s/p 2 weeks of therapy at 03/21/16 Meds Zosyn, 2.25gm IV q6h # antibiotic day 17 Fluconazole 200 mg IV daily, (antifungal, #17) Microbiology 03/21 blood cultures 2 sets: no growth 03/23 abdominal aspirate: 3+ GPCs, amp-S enterococcus Subjective: Patient remains somewhat guarded in his hopes for improvement. No pain to complain of. Less diarrhea Objective: Vital Signs Temp Pulse Resp BP Pulse Ox 37.7 C 104 H 16 131/71 H 98 03/30/16 15:27 03/30/16 15:27 03/30/16 15:27 03/30/16 15:27 03/30/16 15:27 Microbiology 03/23/16 12:50 Gram Stain - Final Peritoneal Fluid - Aspirate Anaerobic Culture - Final Enterococcus Faecalis Laboratory Results 03/30/16 05:33 03/30/16 05:33 03/29/16 03/30/16 03/31/16 05:59 05:59 05:59 Intake Total 4653 1315 2518 Output Total 2990 2740 1855 Balance 1663 -1425 663 - Physical Exam General Appearance: alert, obese, other (Chronic ill-appearing) EENT: pale conjunctiva, No scleral icterus, No thrush Respiratory: other (Decreased breath sounds in the bases), No accessory muscle use Cardiac/Chest: tachycardia Extremities: pedal edema (Slightly improved but still 3+) Abdomen: non-tender, soft, other (CHARLIE drain with light brown cloudy fluid) Skin: pallor, No rash Neuro/Psych: alert, normal mood/affect, oriented x 3 - Time Spent With Patient Time Spent with Patient: greater than 25 minutes Time Spent with Patient: Greater than 25 minutes spent on this patients care, greater than 50% of time spent counseling, educating, and coordinating care regarding the above mentioned plan. ICD10 Worksheet Patient Problems: Problems Problem Status Diagnosed Hypoxia Acute Pneumonia Acute
[2016-03-30] MEDS: MELATONIN 3 MG TAB PO SCH (23:16)
[2016-03-31] MEDS: PIPERACILLIN/TAZO 2.25 GM/DEX 50 ML IV SCH ×3 (05:09→18:32)
[2016-03-31] MEDS: HYDROmorphONE/DILAUDID 1 MG/ML SYR IVP PRN (05:09)
[2016-03-31] MEDS: HEPARIN 5,000 UNIT/0.5 ML SYR SC SCH ×3 (05:09→21:16)
[2016-03-31] MEDS: NYSTATIN SUSP 500000 UNIT/5 ML UDCUP PO SCH ×4 (05:11→21:16)
[2016-03-31] MEDS: IPRATROPIUM/ALBUTEROL 3 ML DEYVIAL IH SCH ×4 (05:49→22:13)
[2016-03-31 05:55] LABS: % IMMATURE GRANULYOCYTES 1.7 % (0.0-1.1); ABSOLUTE IMMATURE GRANULOCYTES 0.23 10^3/uL (0.00-0.10); ADD DIFF? NO; ADD MORPH? NO; ADD SCAN? NO; ATYPICAL LYMPHOCYTE FLAG 20 (0-99); FRAGMENT RBC FLAG 0 (0-99); HEMATOCRIT 21.3 % (40.0-51.0); HEMOGLOBIN 7.3 g/dL (13.7-17.5); LEFT SHIFT FLG 30 (0-99); LIPEMIA HEMOLYSIS FLAG 90 (0-99); MEAN CELL HEMOGLOBIN 30.8 pg (27.9-34.1); MEAN CELL HEMOGLOBIN CONCENTR. 34.3 g/dL (32.4-36.7); MEAN CELL VOLUME 89.9 fL (81.5-99.8); MEAN PLATELET VOLUME 9.6 fL (8.7-11.7); PLATELET CLUMPS FLAG 0 (0-99); PLATELET COUNT 409 10^3/uL (150-400); RED BLOOD CELL COUNT 2.37 10^6/uL (4.40-6.38); RED CELL DISTRIBUTION WIDTH 15.8 % (11.5-15.2)
[2016-03-31 06:23] LABS: ANION GAP 12 mEq/L (8-16); CALCIUM 7.5 mg/dL (8.5-10.4); CARBON DIOXIDE 23 mEq/l (22-31); CHLORIDE 109 mEq/L (97-110); GLOMERULAR FILTRATION RATE 32; GLUCOSE 149 mg/dL (70-100); POTASSIUM 3.3 mEq/L (3.5-5.2); SODIUM 144 mEq/L (134-144)
[2016-03-31] MEDS: FAMOTIDINE 20 MG TAB PO SCH (09:09)
[2016-03-31] MEDS: PANTOPRAZOLE SODIUM 40 MG TAB PO SCH ×2 (09:09→21:15)
[2016-03-31] MEDS: DIPHENOXYLATE/ATROPINE LOMOTIL 1 TAB PO PRN ×2 (09:10→13:10)
[2016-03-31] MEDS: MAGNESIUM OXIDE 400 MG TAB TUBE SCH (09:10)
--- NOTE | 2016-03-31 09:38 | PCMIDPN ---
Assessment/Plan: Assessment/Plan: * E coli bacteremia due to choledocholithiasis and subsequent duodenal perforation status post repair with intra-abdominal abscess post percutaneous drainage with growth of Enterococcus faecalis: Continue Zosyn and fluconazole. Follow renal function over time in event Zosyn dose needs to be increased. Anticipate prolonged course of antibiotic therapy-therefore will place PICC line. Risks and benefits of PICC line discussed with patient today. Will review further plans with surgical service. 03/31/16 09:35 Subjective: Patient without abdominal pain. Does note loose stools. Objective: Vital Signs Temp Pulse Resp BP Pulse Ox 37.6 C 106 H 18 134/80 H 95 03/31/16 07:51 03/31/16 07:51 03/31/16 07:51 03/31/16 07:51 03/31/16 07:51 Microbiology 03/23/16 12:50 Gram Stain - Final Peritoneal Fluid - Aspirate Anaerobic Culture - Final Enterococcus Faecalis Laboratory Results 03/31/16 05:33 03/31/16 05:33 03/30/16 03/31/16 04/01/16 05:59 05:59 05:59 Intake Total 1315 5568 Output Total 2740 2085 Balance -1425 3483 Zosyn # 18 Fluconazole (anti fungal # 18) Tm 37.7 - Physical Exam General Appearance: alert, no apparent distress EENT: No scleral icterus, No thrush Respiratory: lungs clear (Anterolaterally), No respiratory distress Cardiac/Chest: tachycardia Extremities: other (3+ lower extremity edema bilaterally) Abdomen: non-tender, distended (Mild), other (Bilious output in CHARLIE drain) ICD10 Worksheet Patient Problems: Problems Problem Status Diagnosed Hypoxia Acute Pneumonia Acute
[2016-03-31] MEDS: FLUCONAZOLE/NaCl 100 ML IV SCH (11:25)
--- NOTE | 2016-03-31 11:39 | SOAPPROG ---
SOAP Progress Note Assessment/Plan: Assessment: 81 Y M s/p ex-lap, repair of duodenal perforation c omental patch and J tube placement. POD#16. No major changes. Tolerating clear liquid diet but has had very little intake. Will continue clears today. Lomotil helping with diarrhea--now resolved. Continue abx and CHARLIE drainage. PICC line today. 03/31/16 11:36 Subjective: Denies pain. Diarrhea stopped. No nausea. Had some sips of clears. Objective: Vital Signs Temp Pulse Resp BP Pulse Ox 37.6 C 106 H 18 134/80 H 95 03/31/16 07:51 03/31/16 07:51 03/31/16 07:51 03/31/16 07:51 03/31/16 07:51 Microbiology 03/23/16 12:50 Gram Stain - Final Peritoneal Fluid - Aspirate Anaerobic Culture - Final Enterococcus Faecalis Laboratory Results 03/31/16 05:33 03/31/16 05:33 03/30/16 03/31/16 04/01/16 05:59 05:59 05:59 Intake Total 1315 5568 Output Total 2740 2085 800 Balance -1425 3483 -800 PT 16.9 SEC (12.0-15.0) H 03/22/16 17:15 INR 1.37 (0.83-1.16) H 03/22/16 17:15 alert, sitting up in chair, nad mmm, no jaundice ctab anteriorly, no wob abd soft, +BS, inc cdi, no erythema, drain and J tube sites clean. Charlie drainage unchanged from yesterday--dark evans green, thin ICD10 Worksheet Patient Problems: Problems Problem Status Diagnosed Hypoxia Acute Pneumonia Acute
[2016-03-31] MEDS: ACETAMINOPHEN 650 MG/20.3 ML UDCUP TUBE PRN (13:10)
--- NOTE | 2016-03-31 14:43 | IR ---
Imaging Guided Peripherally Inserted Central Catheter History: Abdominal abscesses. Technique: Following informed consent, the right arm was prepped and draped in sterile fashion. All e lements of maximal sterile barrier technique including cap, mask, sterile gown, sterile gloves, large sterile sheet, hand hygiene, and 2% chlorhexidine for cutaneous antisepsis, followed. Ultrasound tra nsducer was placed in sterile sleeve and sterile coupling gel was used. Ultrasound evaluation of pote ntial access sites was performed. After successfully identifying a patent vessel of adequate size, 1% Xylocaine was used for local anesthetic. Ultrasound guidance was used to puncture the basilic vein with a 21-gauge needle. 0.018 measuring wire was passed centrally under fluoroscopic control. A skin darline with scalpel blade was followed by removing the access needle. A 5.5 Moldovan peel-away sheath was followed by a 5 Moldovan double lumen central catheter, trimmed to 44 cm length. The tip of the cathet er was positioned centrally and the guidewire removed. AP fluoroscopic spot image was obtained in ins piration. The catheter irrigated easily. The hub of the catheter was secured to the skin using a Stat Lock adhesive device, and a sterile dressing was applied. Fluoroscopy time in minutes: 0.2 . Estimated exposure in mGy: 9.4 . Findings: The tip of the central catheter terminates at the junction of the superior vena cava and th e right atrium. Inspiratory depth is poor, with atelectasis of right lower lobe. Impression: 5 Moldovan double lumen peripherally inserted central catheter is ready to use. - - - - - - - - - - - - - - - - - - - - - - - - - - - - - - - - - - - - - - - - - (Cross-cutting measures: Current medications were listed in the medical record, including all known prescriptions, [id number] medications, herbal medications, and nutritional supplements. The pat ient does not smoke. )
[2016-03-31] MEDS: D5W 1,000 ML IV SCH (15:39)
[2016-03-31] MEDS ORDERED: POTASSIUM CL 20 MEQ TAB PO ONE ×2 (15:47→18:30)
--- NOTE | 2016-03-31 16:06 | HOSPPROG ---
Hospitalist Progress Note Assessment/Plan: ASSESSMENT/PLAN: # duodenal perforation status post repair with omental patch - has 2 CHARLIE drains, still putting out - Enterococcus in peritoneal aspirate - continue Zosyn, fluconazole per ID - rising platelets, persistent leukocytosis noted - clears per surgery # diarrhea - Lomotil started # pancreatitis - resolved # E coli bacteremia due to biliary stones - status post ERCP with extraction of stones - currently on Zosyn # sepsis due to E coli bacteremia # anemia # hypernatremia - resolved with D5W # acute kidney injury - improving from a few days ago; likely component of ATN currently - suspect this is hemodynamic in nature - continue nutrition, IV fluids - avoid nephrotoxins # severe protein calorie malnutrition: Tube feeds # BPH/urinary retention - - starting flomax today - will try to dc amado soon # FCFT # SQH for VTE ppx SUBJECTIVE: tolerating small amounts of clears OBJECTIVE: Vitals reviewed Comfortable, no acute distress Regular rate and rhythm, no murmurs rubs or gallops No respiratory distress, lungs clear to auscultation bilaterally; no wheezes rales or rhonchi Abdomen with midline incision, J-tube, 2 right-sided drains in place 1 with bilious fluid LABORATORY DATA: Reviewed discussed with Dr Bernal - will monitor on abx Objective: Vital Signs Temp Pulse Resp BP Pulse Ox 37.7 C 111 H 18 114/70 97 03/31/16 12:00 03/31/16 12:00 03/31/16 12:00 03/31/16 12:00 03/31/16 12:00 Microbiology 03/23/16 12:50 Gram Stain - Final Peritoneal Fluid - Aspirate Anaerobic Culture - Final Enterococcus Faecalis Laboratory Results 03/31/16 05:33 03/31/16 05:33 03/30/16 03/31/16 04/01/16 05:59 05:59 05:59 Intake Total 1315 5568 Output Total 2740 2085 800 Balance -1425 3483 -800 PT 16.9 SEC (12.0-15.0) H 03/22/16 17:15 INR 1.37 (0.83-1.16) H 03/22/16 17:15 ICD10 Worksheet Patient Problems: Problems Problem Status Diagnosed Hypoxia Acute Pneumonia Acute
[2016-03-31] MEDS: D5W 1/2 NS 1,000 ML IV SCH (18:34)
[2016-03-31] MEDS: MELATONIN 3 MG TAB PO SCH (21:15)
[2016-04-01] MEDS: PIPERACILLIN/TAZO 2.25 GM/DEX 50 ML IV SCH ×4 (00:25→20:39)
[2016-04-01] MEDS: HYDROmorphONE/DILAUDID 2 MG TAB TUBE PRN (00:25)
[2016-04-01] MEDS: D5W 1/2 NS 1,000 ML IV SCH ×2 (00:28→13:44)
[2016-04-01] MEDS: HEPARIN 5,000 UNIT/0.5 ML SYR SC SCH ×3 (05:30→22:01)
[2016-04-01] MEDS: DIPHENOXYLATE/ATROPINE LOMOTIL 1 TAB PO PRN (05:30)
[2016-04-01] MEDS: NYSTATIN SUSP 500000 UNIT/5 ML UDCUP PO SCH ×5 (05:30→22:01)
[2016-04-01] MEDS: IPRATROPIUM/ALBUTEROL 3 ML DEYVIAL IH SCH ×3 (06:00→16:54)
[2016-04-01] MEDS ORDERED: NS 1,000 ML IV ONE (09:16)
[2016-04-01] MEDS ORDERED: 1/2 NS 1,000 ML IV SCH (09:30)
--- NOTE | 2016-04-01 09:37 | HOSPPROG ---
Hospitalist Progress Note Assessment/Plan: ASSESSMENT/PLAN: # hypotension/tachycardia - noted increased diarrhea, drain output today - worsening abdominal pain today - check CT non con - bolus 1 L of normal saline, increase fluid rate - labs pending # duodenal perforation status post repair with omental patch - has 2 CHARLIE drains, still putting out - significant increase in output over the last 24 hours - Enterococcus in peritoneal aspirate - continue Zosyn, fluconazole per ID - clears per surgery # volume overload: Significant; 11 kg weight gain recorded - will need diuresis eventually # diarrhea - Lomotil started - worse again today # pancreatitis - resolved # E coli bacteremia due to biliary stones - status post ERCP with extraction of stones - currently on Zosyn # sepsis due to E coli bacteremia # anemia # hypernatremia - resolved with D5W - recheck today # acute kidney injury - improving from a few days ago; likely component of ATN currently - suspect this is hemodynamic in nature - continue nutrition, IV fluids - avoid nephrotoxins # severe protein calorie malnutrition: Tube feeds # BPH/urinary retention - - starting flomax today - will try to dc amado soon # FCFT # SQH for VTE ppx SUBJECTIVE: Increased diarrhea; overall looks worse today OBJECTIVE: Vitals reviewed Comfortable, no acute distress Regular rate and rhythm, no murmurs rubs or gallops No respiratory distress, lungs clear to auscultation bilaterally; no wheezes rales or rhonchi Abdomen with midline incision, J-tube, 2 right-sided drains in place 1 with bilious fluid 3+ bilateral lower extremity edema LABORATORY DATA: Reviewed high risk Objective: Vital Signs Temp Pulse Resp BP Pulse Ox 37.2 C 111 H 20 93/59 L 97 04/01/16 07:34 04/01/16 07:34 04/01/16 07:34 04/01/16 07:34 04/01/16 07:34 Laboratory Results 03/31/16 05:33 03/31/16 05:33 03/31/16 04/01/16 04/02/16 05:59 05:59 05:59 Intake Total 5568 5868 Output Total 9213 9235 175 Balance 3483 3293 -175 PT 16.9 SEC (12.0-15.0) H 03/22/16 17:15 INR 1.37 (0.83-1.16) H 03/22/16 17:15 ICD10 Worksheet Patient Problems: Problems Problem Status Diagnosed Hypoxia Acute Pneumonia Acute
[2016-04-01 09:50] LABS: ADD DIFF? YES; ADD MORPH? YES; ADD SCAN? NO; ATYPICAL LYMPHOCYTE FLAG 30 (0-99); FRAGMENT RBC FLAG 0 (0-99); HEMATOCRIT 20.9 % (40.0-51.0); LEFT SHIFT FLG 60 (0-99); LIPEMIA HEMOLYSIS FLAG 80 (0-99); MEAN CELL HEMOGLOBIN 30.7 pg (27.9-34.1); MEAN CELL VOLUME 92.9 fL (81.5-99.8); MEAN PLATELET VOLUME 9.6 fL (8.7-11.7); PLATELET CLUMPS FLAG 0 (0-99); PLATELET COUNT 379 10^3/uL (150-400); RED BLOOD CELL COUNT 2.25 10^6/uL (4.40-6.38); RED CELL DISTRIBUTION WIDTH 15.9 % (11.5-15.2)
[2016-04-01 09:51] LABS: HEMOGLOBIN 6.9 g/dL (13.7-17.5)
[2016-04-01 10:23] LABS: ALANINE AMINOTRANSFERASE 31 IU/L (21-72); ALBUMIN 2.1 g/dL (3.5-5.0); ALKALINE PHOSPHATASE 91 IU/L (38-126); ANION GAP 12 mEq/L (8-16); ASPARTATE AMINOTRANSFERASE 23 IU/L (17-59); BILIRUBIN,TOTAL 0.5 mg/dL (0.1-1.4); BILIRUBIN-CONJUGATED 0.2 mg/dL (0.0-0.5); BILIRUBIN-UNCONJUGATED 0.3 mg/dL (0.0-1.1); CALCIUM 6.9 mg/dL (8.5-10.4); CARBON DIOXIDE 21 mEq/l (22-31); CHLORIDE 107 mEq/L (97-110); CREATININE 2.4 mg/dL (0.7-1.3); GLOMERULAR FILTRATION RATE 26; GLUCOSE 181 mg/dL (70-100); POTASSIUM 3.1 mEq/L (3.5-5.2); SODIUM 140 mEq/L (134-144); TOTAL PROTEIN 5.1 g/dL (6.3-8.2)
[2016-04-01] MEDS: FAMOTIDINE 20 MG TAB PO SCH (10:29)
[2016-04-01] MEDS: MAGNESIUM OXIDE 400 MG TAB TUBE SCH (10:29)
[2016-04-01] MEDS: ACETAMINOPHEN 650 MG/20.3 ML UDCUP TUBE PRN (10:29)
[2016-04-01] MEDS ORDERED: MAG HYDROX/AL HYDROX/SIMETH 30 ML UDCUP TUBE PRN (10:34)
[2016-04-01] MEDS: TAMSULOSIN HCL 0.4 MG CAP PO SCH (10:53)
[2016-04-01] MEDS: PANTOPRAZOLE SODIUM 40 MG TAB PO SCH (10:53)
[2016-04-01 11:35] LABS: PLATELET ESTIMATE ADEQUATE (ADEQ)
[2016-04-01 11:36] LABS: HYPOCHROMIA 1+; POLYCHROMASIA 1+
[2016-04-01] MEDS: DIPHENOXYLATE/ATROPINE LOMOTIL 1 TAB TUBE PRN (12:29)
[2016-04-01] MEDS: LANSOPRAZOLE SUSP 30MG/10ML UDSYR (Adult) TUBE SCH ×2 (12:29→20:39)
[2016-04-01] MEDS: FLUCONAZOLE/NaCl 100 ML IV SCH (13:45)
--- NOTE | 2016-04-01 13:53 | CT ---
CT abdomen and pelvis without contrast HISTORY: Increased drainage. Small bowel perforation. TECHNIQUE: The patient received a small amount of dilute Gastrografin orally. Intravenous contrast wa s not used because of concerns about renal function. Multidetector helical CT was performed through [facility] abdomen and pelvis using dose reduction technology. FINDINGS: Compare March 29 and March 22, 2016. Right pleural effusion has diminished. Contrast is found outside the lumen of intestines in the right side of the abdomen, near the right upper quadrant surgical drain, extending to the right lateral abdominal wall and also extending into the retroperit oneum inferior to the right kidney. Irregular fluid and gas bubbles are present. Pigtail drainage tub e is on the far posterolateral edge of the right posterior retroperitoneum, with fluid and gas bubble s lying further medially. Right upper quadrant surgical drain is in similar position as before. Endos copic biliary stents remain in place. A feeding jejunostomy tube is noted in the left side of the abd omen. Mild hydronephrosis is present in both kidneys. Calcification in the left posterior aspect of [facility] urinary bladder is thought to be a bladder stone that has changed position compared to March 29. The Wesley catheter is currently low lying, with the balloon in the prostate and the tip of the toro ter not within the lumen of the urinary bladder. Urinary bladder is moderately distended. A few scatt ered hypodensities in the liver are unchanged. Hiatal hernia is unchanged. Moderate levoscoliosis of lumbar spine is accompanied by severe chronic disc degeneration at multiple levels. IMPRESSIONS: 1. Active gastrointestinal perforation of upper small bowel, with increased contrast in the leak comp ared to previous exams. 2. Previous percutaneous drain is in suboptimal position to help with residual irregular fluid collec tions. 3. Wesley catheter is misplaced inferiorly into the prostate gland, with distention of urinary bladder . 4. Mild bilateral hydronephrosis. 5. Decrease in right pleural effusion. 6. Atelectasis of right lower lobe. 7. Hiatal hernia. I discussed results with Dr. Wu at 1345 hours.
[2016-04-01] MEDS ORDERED: ALBUMIN 25% 50 ML IV ONE (14:01)
[2016-04-01] MEDS ORDERED: BUPIVACAINE/EPI 0.25% 30 ML SDV ONE (14:35)
[2016-04-01] MEDS ORDERED: LIDOCAINE 2% 100 MG/5 ML SYR IVP ONE (15:23)
[2016-04-01] MEDS ORDERED: ROCURONIUM 50 MG/5 ML VIAL ONE ×2 (15:23→16:59)
[2016-04-01] MEDS ORDERED: ONDANSETRON 4 MG/2 ML VIAL ONE (15:23)
[2016-04-01] MEDS ORDERED: SUGAMMADEX SODIUM 200 MG/2 ML VIAL IVP ONE (15:23)
[2016-04-01] MEDS ORDERED: DEXAMETHASONE 4 MG/ML VIAL ONE (15:23)
[2016-04-01] MEDS ORDERED: PROPOFOL 200 MG/20 ML VIAL ONE (15:24)
[2016-04-01] MEDS ORDERED: HYDROmorphONE/DILAUDID 2 MG/ML SYR ONE (15:24)
[2016-04-01] MEDS ORDERED: fentaNYL 100 MCG/2 ML INJ ONE ×2 (15:24→18:46)
[2016-04-01] MEDS ORDERED: PHENYLEPHRINE HCL 100 MCG/ML SYR ONE (15:44)
[2016-04-01] MEDS ORDERED: METHYLENE BLUE 0.5% 50 MG/10 ML AMP ONE (16:03)
--- NOTE | 2016-04-01 18:25 | POSTOPPROG ---
Post Op Note Date of Operation: 04/01/16 Surgeon: Manjit Dunbar Team Cdl Driver: Debbie Salcedo MD, NIGHAT Hayes Anesthesia: GET(General Endotracheal) Pre-op Diagnosis: abdominal abscess, duodenal perf Post-op Diagnosis: same Procedure: Ex-lap, washout, retroperitoneal debridement, leak test, drain placement x3 Findings: Large retroperitonal abscess c necrotic fat. Leak test negative Inf/Abcess present in the surg proc area at time of surgery?: Yes Depth: Organ Space EBL: 50-100 Drains: Federico Deleon
[2016-04-01] MEDS: MELATONIN 3 MG TAB TUBE SCH (20:38)
[2016-04-02] MEDS: PIPERACILLIN/TAZO 2.25 GM/DEX 50 ML IV SCH ×5 (00:17→23:09)
[2016-04-02] MEDS: ACETAMINOPHEN 650 MG/20.3 ML UDCUP TUBE PRN (02:36)
[2016-04-02] MEDS: HYDROmorphONE/DILAUDID 1 MG/ML SYR IVP PRN ×2 (06:07→15:04)
[2016-04-02] MEDS: HEPARIN 5,000 UNIT/0.5 ML SYR SC SCH ×3 (06:07→22:13)
[2016-04-02] MEDS: NYSTATIN SUSP 500000 UNIT/5 ML UDCUP PO SCH ×4 (06:07→22:12)
[2016-04-02] MEDS: IPRATROPIUM/ALBUTEROL 3 ML DEYVIAL IH SCH ×4 (06:20→15:58)
[2016-04-02 06:38] LABS: % IMMATURE GRANULYOCYTES 1.9 % (0.0-1.1); ABSOLUTE IMMATURE GRANULOCYTES 0.26 10^3/uL (0.00-0.10); ADD DIFF? NO; ADD MORPH? NO; ADD SCAN? NO; ATYPICAL LYMPHOCYTE FLAG 20 (0-99); FRAGMENT RBC FLAG 0 (0-99); HEMATOCRIT 23.8 % (40.0-51.0); HEMOGLOBIN 7.9 g/dL (13.7-17.5); LEFT SHIFT FLG 30 (0-99); LIPEMIA HEMOLYSIS FLAG 80 (0-99); MEAN CELL HEMOGLOBIN 29.7 pg (27.9-34.1); MEAN CELL HEMOGLOBIN CONCENTR. 33.2 g/dL (32.4-36.7); MEAN CELL VOLUME 89.5 fL (81.5-99.8); PLATELET CLUMPS FLAG 20 (0-99); PLATELET COUNT 340 10^3/uL (150-400); RED BLOOD CELL COUNT 2.66 10^6/uL (4.40-6.38); RED CELL DISTRIBUTION WIDTH 15.9 % (11.5-15.2)
[2016-04-02 06:56] LABS: ANION GAP 10 mEq/L (8-16); CALCIUM 7.1 mg/dL (8.5-10.4); CARBON DIOXIDE 21 mEq/l (22-31); CHLORIDE 111 mEq/L (97-110); CREATININE 2.6 mg/dL (0.7-1.3); GLOMERULAR FILTRATION RATE 24; GLUCOSE 124 mg/dL (70-100); POTASSIUM 3.7 mEq/L (3.5-5.2); SODIUM 142 mEq/L (134-144)
[2016-04-02] MEDS: NS 1,000 ML IV SCH ×2 (08:55→22:12)
[2016-04-02] MEDS: FLUCONAZOLE/NaCl 100 ML IV SCH (08:55)
[2016-04-02] MEDS: LANSOPRAZOLE SUSP 30MG/10ML UDSYR (Adult) TUBE SCH ×2 (09:40→22:13)
[2016-04-02] MEDS: MAGNESIUM OXIDE 400 MG TAB TUBE SCH (09:41)
[2016-04-02] MEDS: FAMOTIDINE 20 MG TAB TUBE SCH (09:41)
--- NOTE | 2016-04-02 10:53 | SOAPPROG ---
SOAP Progress Note Assessment/Plan: Assessment/Plan - 81yo M s/p ex-lap x2 c duodenal repair and washout - Afebrile overnight, pain appropriate. - Hb has responded to 2U transfusion. - JPs all look like old bile, necrotic fat. No methyelene blue staining from intra-op leak test - NGT with around 200cc out, would cont strict NPO through the weekend, poss remove NGT tuesday - Overall I think that the washout helped. Will cont to monitor drain output but will follow clinically, poss feed next week if progresses 03/16/16 13:25 03/18/16 11:00 03/19/16 12:10 03/22/16 10:11 03/22/16 14:17 03/23/16 15:52 03/24/16 10:34 03/25/16 13:54 03/26/16 11:15 03/26/16 11:17 03/29/16 11:06 03/30/16 11:08 04/02/16 10:50 Subjective: Pain appropriate. Objective: Vital Signs Temp Pulse Resp BP Pulse Ox 36.3 C 82 12 98/62 L 96 04/02/16 08:00 04/02/16 09:12 04/02/16 09:12 04/02/16 08:00 04/02/16 09:12 Laboratory Results 04/02/16 05:35 04/02/16 05:35 04/01/16 04/02/16 04/03/16 05:59 05:59 05:59 Intake Total 5868 4056 Output Total 2575 2930 130 Balance 3293 1126 -130 PT 16.9 SEC (12.0-15.0) H 03/22/16 17:15 INR 1.37 (0.83-1.16) H 03/22/16 17:15 ICD10 Worksheet Patient Problems: Problems Problem Status Diagnosed Hypoxia Acute Pneumonia Acute
--- NOTE | 2016-04-02 14:35 | GOP ---
[f rep st] OPERATIVE REPORT DATE OF OPERATION: 04/01/2016 SURGEON: Manjit Dunbar MD LAN ADMINISTRATOR: 1. Delmer Salcedo MD. 2. Robert Mcpherson PA-C. ANESTHESIA: General endotracheal. ANESTHESIOLOGIST: Donnie Castillo MD PREOPERATIVE DIAGNOSIS: Intraabdominal abscess secondary to duodenal perforation. POSTOPERATIVE DIAGNOSIS: Intraabdominal abscess secondary to duodenal perforation. PROCEDURE PERFORMED: 1. Exploratory laparotomy. 2. Lysis of adhesions. 3. Abdominal wash out. 4. Intraoperative leak test. FINDINGS: The patient had dense adhesions to the anterior abdominal wall. After successfully lysing, these I was able to gain access to the right upper quadrant. I removed the old drain. I interrogated my previous repair which was covered with my omental patch. I did not take this down. I turned my attention toward the right-sided retroperitoneum where a significant amount of what appeared to be necrotic fat was debrided. The abdomen was irrigated with 9 L sterile saline. I did perform an intraoperative leak test using methylene blue via an NG tube and I was unable to elicit any extravasation. SPECIMENS: None. ESTIMATED BLOOD LOSS: 100 cc. DESCRIPTION OF PROCEDURE: The patient was greeted in the preoperative suite. Once again, risks, benefits, and alternatives were discussed. The consent was signed. He was then brought back to the operative suite, placed on the OR table in supine position. After all anesthesia machines including SCDs were on and functioning, a [employer] time-out was performed. General endotracheal anesthesia was then induced without incident. The patient's abdomen including his previous drains were then prepped and draped in typical sterile fashion. I accessed his abdomen via his previous midline incision. I opened up the previous PDS stitch holding the fascia together. Once entering the abdomen, he had a significant amount of dense adhesions, including the transverse colon, to the anterior abdominal wall. Using a combination of electrocautery and Metzenbaum dissection, I was able to successfully lyse these. After lysing adhesions, I turned my attention toward the right upper quadrant. I did have to take down some adhesions between the colon and the liver. Taking these down, I identified the duodenal in my previous repair. The drain at that site appeared to be sitting within the duodenum and my omental flap repair. I did remove this. I irrigated that area. I did not take down my previous omental flap, as it appeared that it had walled the area off appropriately. Once I interrogated this, I turned my attention toward the right retroperitoneum where this previous CT scan had showed that there was a significant amount of abscess. I reflected the kidney anteriorly, gained access to the retroperitoneum, and found a significant amount of tissue of what appeared to be necrotic retroperitoneal fat. I debrided this using a combination of fluid extraction and blunt dissection. After a successful debridement, I then irrigated the abdomen with 9 total liters of warm saline, noting eventually clear effluent in the suction canister. I turned my attention back toward the duodenal. I had the anesthesiologist place a nasogastric tube all the way to the level of the pylorus and give methylene blue. I milked the methylene blue through the pylorus and I did not see any extravasation at any portions of the duodenal or into the retroperitoneum. After this, I placed 3 new 19[place] channel drains, one of them laid in the right retroperitoneum along the pericolic gutter to the level of the liver, the other one laid in a similar fashion; however, turned and laid deep to the duodenal. The 3rd drain laid anterior to the duodenal and my flap repair. I then interrogated the rest the abdomen, found no other significant findings. My jejunostomy feeding tube previously placed was interrogated and noted to be in approximate and good position. I then turned my attention toward closing. The fascia was once again reapproximated with a running #1 PDS suture, the subcutaneous tissue was irrigated with warm normal saline, and the skin was once again closed with ricarda. All drains were sewn to the skin with nylon sutures. Sterile dressings were appropriately placed and the patient was then extubated in the operative suite and taken to the PACU in satisfactory condition. DRAINS: Three total 19[place] channel drains placed within the right upper quadrant. COUNTS: All counts were reported as correct x2. /[id number]/MODL MTDD
--- NOTE | 2016-04-02 14:49 | HOSPPROG ---
Hospitalist Progress Note Assessment/Plan: ASSESSMENT/PLAN: 81 yo male who presented with sepsis due to E coli bacteremia, source was retained gall stones. ERCP 03/12/2016 with multiple stones extracted and 2 stents placed. He then developed pancreatitis and suffered duodenal perforation , which was repaired by Dr. Dunbar on 03/16/2016 with omental flap and J tube was placed. He had persistent pain, fevers and leukocytosis and repeat CT showed complex fluid collection in RUQ / retroperitoneum likely secondary to a small bowel/bile leak. A perc drain was placed by IR on 03/23/2016. Culture on this fluid grew enterococcus. Repeat CT 03/29/2016 showed decreased but persistent complex fluid collection in the retroperitoneum and pt was taken back to OR 04/01/2016 for abdominal washout. No leak was identified at that time. He is on tube feeds. NG tube in place. Still significant output from CHARLIE drains. # duodenal perforation status post repair with omental patch - POD #17, POD #1. - has 2 CHARLIE drains, still putting out - Enterococcus in peritoneal aspirate - continue Zosyn, fluconazole per ID - NPO, NG tube for now # Sepsis / E coli bacteremia due to retained gall stones. Repeat BCx's neg x4. - status post ERCP with extraction of stones / stent placement - currently on Zosyn # acute kidney injury / ?CKD - suspect ATN, Cr trending up - given rising Cr, will request nephrology consult - avoid nephrotoxins # volume overload: Significant; 11 kg weight gain recorded since admission - will need diuresis eventually # hypotension/tachycardia - improved today post-operatively # diarrhea - Resolved post-operatively. Pt reported a nl BM this am. # pancreatitis - resolved # anemia - s/p total 3 u prbc's, h&h stable this am # hypernatremia - resolved with D5W, follow # severe protein calorie malnutrition: Tolerating tube feeds # BPH/urinary retention - Amado in place. Started on Flomax. -D/C amado soon # Full code # SQH for VTE ppx Subjective: Pt reports 2-3/10 pain in his entire abdomen. He ambulated today and had a normal bowel movement. No fevers. NG tube in with output. CHARLIE drains also with significant output. Tolerating tube feeds. He smiles and makes joke! Objective: Vital Signs Temp Pulse Resp BP Pulse Ox 36.7 C 90 18 103/57 L 92 04/02/16 12:00 04/02/16 12:00 04/02/16 12:00 04/02/16 12:00 04/02/16 12:00 Laboratory Results 04/02/16 05:35 04/02/16 05:35 04/01/16 04/02/16 04/03/16 05:59 05:59 05:59 Intake Total 5852 4056 Output Total 2577 2930 1810 Balance 3293 1126 -1810 PT 16.9 SEC (12.0-15.0) H 03/22/16 17:15 INR 1.37 (0.83-1.16) H 03/22/16 17:15 - Physical Exam Constitutional: no apparent distress Eyes: PERRL Ears, Nose, Mouth, Throat: moist mucous membranes Cardiovascular: regular rate and rhythym Respiratory: no respiratory distress, clear to auscultation Gastrointestinal: other (hypoactive bowel tones, mild diffuse TTP, no r/r/g) Skin: warm Neurologic: AAOx3 Psychiatric: interacting appropriately ICD10 Worksheet Patient Problems: Problems Problem Status Diagnosed Hypoxia Acute Pneumonia Acute
[2016-04-02 16:55] LABS: HEPATITIS B SURFACE ANTIBODY NEGATIVE (NEGATIVE)
--- NOTE | 2016-04-02 18:22 | PCMIDPN ---
Assessment/Plan: Assessment/Plan: * E coli bacteremia due to choledocholithiasis and subsequent duodenal perforation status post repair with intra-abdominal abscess post percutaneous drainage with growth of Enterococcus faecalis and repeat open drainage 04/01/2016 : Continue Zosyn and fluconazole. No new culture data available. Anticipate prolonged course of antibiotic therapy based on clinical findings. 04/02/16 18:20 Subjective: Patient complains of abdominal pain. Repeat incision and drainage yesterday with findings of necrotic retroperitoneal fat. No active leak noted. Objective: Vital Signs Temp Pulse Resp BP Pulse Ox 36.7 C 97 14 123/65 H 96 04/02/16 14:56 04/02/16 16:16 04/02/16 16:16 04/02/16 14:56 04/02/16 16:16 Laboratory Results 04/02/16 05:35 04/02/16 05:35 04/01/16 04/02/16 04/03/16 05:59 05:59 05:59 Intake Total 5868 4056 1880 Output Total 2575 2930 1810 Balance 3293 1126 70 Zosyn # 20 Fluconazole # 20 - Physical Exam General Appearance: alert, no apparent distress, other (Fatigued appearance) EENT: pharynx normal, No scleral icterus Respiratory: lungs clear (Anterolaterally), No respiratory distress Cardiac/Chest: regular rate, rhythm Abdomen: tender (Diffusely; multiple CHARLIE drains with bilious appearing output) Skin: No rash ICD10 Worksheet Patient Problems: Problems Problem Status Diagnosed Hypoxia Acute Pneumonia Acute
[2016-04-02] MEDS: HYDROmorphONE/DILAUDID 2 MG TAB TUBE PRN (22:13)
[2016-04-02] MEDS: MELATONIN 3 MG TAB TUBE SCH (22:13)
--- NOTE | 2016-04-02 23:01 | GCON ---
[f rep st] CONSULTATION NEPHROLOGY CONSULTATION DATE OF CONSULTATION: 04/02/2016 REASON FOR CONSULTATION: Opinion regarding acute kidney injury. HISTORY OF PRESENT ILLNESS: The patient is a very pleasant 81-year-old gentleman who has moved to the [facility] from [place] to be closer to family. He was in his usual state of health until just prior to [place] when he began having fevers, chills and rigors. He was brought to the Emergency Department and was noted to be septic. Subsequently was diagnosed with acute pancreatitis and had complications including a perforated duodenum with in addition abscesses. The patient has had an upper endoscopy and 3 exploratory laparotomies. On admission, his serum creatinine was 1.4, but stayed between 1.2 and 1.6 until his surgery on 03/23/2016. At that time, postoperatively he did have some hypotension with systolic blood pressures into the 90s. His serum creatinine bumped up to the 1.8 to 2.2 range and stayed there for several days until 04/01/2016, when he went back to the operating room for exploratory laparotomy and abdominal washout. He dropped his blood pressure again postoperatively into the 90s and now his serum creatinine is increasing once again/ Currently, the patient says he feels reasonably well. He is still having some abdominal discomfort and some nausea. He has an NG tube in place and he seems to be tolerating that okay. He denies chest pain. He does have some shortness of breath and some cough. No sputum, hemoptysis, hematosis, epistaxis. He does have some abdominal discomfort. No blurry vision, double vision, headache , orthopnea, paroxysmal nocturnal dyspnea, palpitations or syncope. ALLERGIES: Morphine. CURRENT MEDICATIONS: Include Tylenol, Maalox, albuterol, aspirin 81 mg a day, Dulcolax, Lomotil p.r.n., Pepcid 20 mg daily, fluconazole 100 mg IV daily, heparin, Dilaudid as needed, Prevacid 30 mg twice daily, nystatin swish and spit , Zofran, piperacillin/tazobactam 2.25 g IV every 6 hours, normal saline at 100 cc/hr, Flomax 0.4 mg daily. FAMILY HISTORY: Negative for renal failure. SOCIAL HISTORY: The patient recently moved to the [facility] from [place]. 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 He enjoys traveling and quite smoking 35 years ago. Drinks an occasional glass of wine. No IV or recreational drugs or tattoos. REVIEW OF SYSTEMS: A complete 12-point review of systems was performed. The pertinent positives and negatives as per the previous sections. PHYSICAL EXAMINATION: VITAL SIGNS: Blood pressure 123/65, temperature 36.7 degrees, respirations 18, pulse 98. His low blood pressure this morning was 98/ 62 and he has had several blood pressures since about 9:00 o'clock last night in the 90s over 50s and 60s. Urine output is approximately 1.5 L so far today. GENERAL: He is awake, alert, cooperative. He is actually in quite good spirits. HEENT: He has an NG in place. Pupils are reactive to light and extraocular movements are intact. Mucous membranes are moist. NECK: No lymphadenopathy, thyromegaly or bruit. HEART: Regular, has a grade 1/6 murmur , no rub, no S3. LUNGS: No rhonchi or wheezes. ABDOMEN: Quiet, firm, distended. Multiple drains. EXTREMITIES: Trace edema. No cyanosis or clubbing. NEUROLOGIC: No asterixis. SKIN: Multiple ecchymoses. LYMPHATICS: No palpable lymphadenopathy or lymphedema. MUSCULOSKELETAL: No effusions or tenderness. LABORATORY: 1. Serum sodium 142, potassium 3.7, chloride 111, CO2 21, BUN 53, creatinine 2.6, glucose 124, albumin 2.1. 2. WBC 13.8, hemoglobin 7.9, hematocrit 24, platelet count 340,000. 3. Most recent urinalysis: Specific gravity of 1.013, pH 5, negative protein, +1 blood. 4. Influenza and Clostridium difficile have been negative in the past. 5. He did have peritoneal fluid cultures on 03/23/2106 that were positive for Enterococcus faecalis. 6. On 03/07/2016, he has 2 sets of blood cultures that were positive for Escherichia coli. 7. He had an MRCP showing bilateral parapelvic cysts in the kidneys and multiple stones in his common bile duct. 8. There was no obstruction in his kidneys on his CT scans without contrast, MRCP, or abdominal ultrasound. IMPRESSION: 1. Acute kidney injury. This seems hemodynamically mediated. Each time he drops his blood pressure into the 90s and it stays in that range for several hours, his serum creatinine increases. Unfortunately, it levels off at the new increased level and does not seem to want to go back down. With his hypotension on the and subsequently the , we have seen the rise in his serum creatinine. Also, he has been on antibiotics for a number or days. He may also have an interstitial nephritis. 2. Escherichia coli sepsis. 3. Perforated duodenum with multiple abscesses requiring multiple exploratory laparotomies. 4. Pancreatitis. 5. Deconditioned. 6. Malnutrition. RECOMMENDATIONS: 1. Continue your current therapies. 2. I will be checking spot urine chemistries including urine eosinophils. 3. Avoid nephrotoxins including IV contrast and nonsteroidal antiinflammatory drugs. 4. My hope is that with stable blood pressures we will see an improvement in his renal function. Over time, he is and remains nonoliguric. Thank you for allowing me to participate in the care of your patient. If there are any questions, please do not hesitate to contact me. I will following along with you. /[id number]/MODL MTDD
[2016-04-03] MEDS: IPRATROPIUM/ALBUTEROL 3 ML DEYVIAL IH SCH ×4 (00:02→16:04)
[2016-04-03] MEDS: HYDROmorphONE/DILAUDID 1 MG/ML SYR IVP PRN ×4 (02:10→20:11)
[2016-04-03] MEDS: HEPARIN 5,000 UNIT/0.5 ML SYR SC SCH ×3 (05:35→21:48)
[2016-04-03] MEDS: PIPERACILLIN/TAZO 2.25 GM/DEX 50 ML IV SCH ×2 (05:35→12:47)
[2016-04-03] MEDS: NYSTATIN SUSP 500000 UNIT/5 ML UDCUP PO SCH ×4 (05:35→21:47)
[2016-04-03 06:05] LABS: % IMMATURE GRANULYOCYTES 1.5 % (0.0-1.1); ADD DIFF? NO; ADD MORPH? NO; ADD SCAN? NO; ATYPICAL LYMPHOCYTE FLAG 20 (0-99); FRAGMENT RBC FLAG 0 (0-99); HEMATOCRIT 22.5 % (40.0-51.0); HEMOGLOBIN 7.6 g/dL (13.7-17.5); LEFT SHIFT FLG 20 (0-99); LIPEMIA HEMOLYSIS FLAG 90 (0-99); MEAN CELL HEMOGLOBIN 30.5 pg (27.9-34.1); MEAN CELL HEMOGLOBIN CONCENTR. 33.8 g/dL (32.4-36.7); MEAN CELL VOLUME 90.4 fL (81.5-99.8); MEAN PLATELET VOLUME 9.9 fL (8.7-11.7); PLATELET CLUMPS FLAG 20 (0-99); PLATELET COUNT 362 10^3/uL (150-400); RED BLOOD CELL COUNT 2.49 10^6/uL (4.40-6.38)
[2016-04-03 06:18] LABS: ALBUMIN 1.9 g/dL (3.5-5.0); ANION GAP 8 mEq/L (8-16); CALCIUM 7.3 mg/dL (8.5-10.4); CARBON DIOXIDE 23 mEq/l (22-31); CHLORIDE 115 mEq/L (97-110); CREATININE 2.6 mg/dL (0.7-1.3); GLOMERULAR FILTRATION RATE 24; GLUCOSE 123 mg/dL (70-100); POTASSIUM 3.5 mEq/L (3.5-5.2); SODIUM 146 mEq/L (134-144)
--- NOTE | 2016-04-03 08:42 | SOAPPROG ---
SOAP Progress Note Assessment/Plan: Assessment/Plan - 81yo M s/p ex-lap x2 c duodenal repair and washout - AFVSS, WBC down to 13. - JPs cont to drain around 1000cc total, expected. bilious tinged but not cheri bile - Strict NPO through the weekend, cont J tube feeds to goal. 03/16/16 13:25 03/18/16 11:00 03/19/16 12:10 03/22/16 10:11 03/22/16 14:17 03/23/16 15:52 03/24/16 10:34 03/25/16 13:54 03/26/16 11:15 03/26/16 11:17 03/29/16 11:06 03/30/16 11:08 04/02/16 10:50 04/03/16 08:40 Subjective: A little confused, but states that his pain is well controlled Objective: Vital Signs Temp Pulse Resp BP Pulse Ox 37.4 C 98 18 106/64 95 04/03/16 08:00 04/03/16 08:00 04/03/16 08:00 04/03/16 08:00 04/03/16 08:00 Laboratory Results 04/03/16 05:30 04/03/16 05:30 04/02/16 04/03/16 04/04/16 05:59 05:59 05:59 Intake Total 4056 4480 Output Total 2930 3130 880 Balance 1126 1350 -880 PT 16.9 SEC (12.0-15.0) H 03/22/16 17:15 INR 1.37 (0.83-1.16) H 03/22/16 17:15 ICD10 Worksheet Patient Problems: Problems Problem Status Diagnosed Hypoxia Acute Pneumonia Acute
--- NOTE | 2016-04-03 09:34 | HOSPPROG ---
Hospitalist Progress Note Assessment/Plan: ASSESSMENT/PLAN: 81 yo male who presented with sepsis due to E coli bacteremia, source was retained gall stones. ERCP 03/12/2016 with multiple stones extracted and 2 stents placed. He then developed pancreatitis and suffered duodenal perforation , which was repaired by Dr. Dunbar on 03/16/2016 with omental flap and J tube was placed. He had persistent pain, fevers and leukocytosis and repeat CT showed complex fluid collection in RUQ / retroperitoneum likely secondary to a small bowel/bile leak. A perc drain was placed by IR on 03/23/2016. Culture on this fluid grew enterococcus. Repeat CT 03/29/2016 showed decreased but persistent complex fluid collection in the retroperitoneum and pt was taken back to OR 04/01/2016 for abdominal washout. No leak was identified at that time. He is on tube feeds. NG tube in place. Still significant output from CHARLIE drains. # duodenal perforation status post repair with omental patch - POD #17, POD #1. - has 3 CHARLIE drains, still putting out - Enterococcus in peritoneal aspirate - continue Zosyn, fluconazole per ID - Cont NPO, NG tube through weekend per surg # Sepsis / E coli bacteremia due to retained gall stones. Repeat BCx's neg x4. - status post ERCP with extraction of stones / stent placement - currently on Zosyn # acute kidney injury / ?CKD - Cr stable today, query hemodynamic related vs ATN vs interstitial nephritis. - Appreciate Renal consult - avoid nephrotoxins # acute hypoxemic respiratory failure - abdominal pain may be contributing to poor inspiratory effort. O2 needs increased to 4 LPM from 2 LPM - check CXR # volume overload: Significant; 11 kg weight gain recorded since admission, though wt stable past few days - will need diuresis eventually, may try albumin / lasix today # hypotension/tachycardia - improved post-operatively # hypernatremia - start D5W, follow # diarrhea - Resolved post-operatively. Pt reported a nl BM this am. # pancreatitis - resolved # anemia - s/p total 3 u prbc's, h&h stable this am # hypernatremia - resolved with D5W, follow # severe protein calorie malnutrition: Tolerating tube feeds # BPH/urinary retention - Amado in place. Started on Flomax. -D/C amado soon # Full code # SQH for VTE ppx Subjective: Pt more SOB this am. Denies CP. Increased LE edema. Still with NG and CHARLIE drain output. No fevers. Objective: Vital Signs Temp Pulse Resp BP Pulse Ox 37.4 C 98 18 106/64 95 04/03/16 08:00 04/03/16 08:00 04/03/16 08:00 04/03/16 08:00 04/03/16 08:00 Laboratory Results 04/03/16 05:30 04/03/16 05:30 04/02/16 04/03/16 04/04/16 05:59 05:59 05:59 Intake Total 4056 4480 Output Total 2930 3130 880 Balance 1126 1350 -880 PT 16.9 SEC (12.0-15.0) H 03/22/16 17:15 INR 1.37 (0.83-1.16) H 03/22/16 17:15 - Physical Exam Constitutional: uncomfortable Eyes: PERRL Ears, Nose, Mouth, Throat: moist mucous membranes Cardiovascular: regular rate and rhythym Respiratory: no respiratory distress, other (diminished breath sounds right lung base, faint bibasilar crackles) Gastrointestinal: other (soft, mild distention, no peritoneal signs) Skin: warm Neurologic: AAOx3 Psychiatric: interacting appropriately ICD10 Worksheet Patient Problems: Problems Problem Status Diagnosed Hypoxia Acute Pneumonia Acute
[2016-04-03 10:25] LABS: EOSMR EOSINOPHILS FEW EOS (NO EOS SEEN); EOSMR EPITHELIAL CELLS FEW EPITH CELLS; EOSMR PMNS FEW PMN CELLS; EOSMR RBCS MODERATE RBCS
[2016-04-03] MEDS: FAMOTIDINE 20 MG TAB TUBE SCH (10:53)
[2016-04-03] MEDS: MAGNESIUM OXIDE 400 MG TAB TUBE SCH (10:53)
[2016-04-03] MEDS: LANSOPRAZOLE SUSP 30MG/10ML UDSYR (Adult) TUBE SCH ×2 (10:53→21:47)
[2016-04-03] MEDS: POTASSIUM Cl (KCl) 20 MEQ in D5W 1,000 ML IV SCH (10:54)
[2016-04-03] MEDS: FLUCONAZOLE/NaCl 100 ML IV SCH (10:54)
--- NOTE | 2016-04-03 12:36 | DX ---
Portable Chest - April 03, 2016 at 1145 hours History: Shortness of breath, hypoxia. Comparison: Portable chest March 21, 2016. Findings: Right PICC tip is last visible in the right atrium. NG tube tip extends off the inferior ma rgin of the study. Lung volumes remain low, with probable slight increase in small bilateral pleural effusions with basilar consolidation. There is no pneumothorax. Cardiomegaly is stable. The bones are stable. Impression: 1. Slight increase in small effusions with basilar consolidation, which could be related to pneumonia or atelectasis. 2. Additional findings as above.
--- NOTE | 2016-04-03 12:38 | DX ---
Upright Abdomen at 1146 hours History: Assess NG tube placement. Comparison: Portable chest same day 1145 hours, CT abdomen and pelvis April 01, 2016. Findings: NG tube tip is in the distal stomach. Percutaneous jejunostomy tube, biliary stents, and ri ght-sided abdominal drains are noted. There are scattered nonspecific air-fluid levels, with no dilat ed bowel loops identified. A small hiatal hernia is present. Skin ricarda overlie the midline. Degene rative change is noted in the spine with levoscoliosis. Small bilateral pleural effusions and basilar consolidation are noted. Impression: 1. NG tube tip in the distal stomach. 2. Additional findings as above.
[2016-04-03] MEDS ORDERED: ALBUMIN 25% 100 ML IV ONE (15:51)
[2016-04-03] MEDS ORDERED: FUROSEMIDE 40 MG/4 ML VIAL IVP ONE (15:52)
--- NOTE | 2016-04-03 15:52 | PCMIDPN ---
Assessment/Plan: Assessment/Plan: * E coli bacteremia due to choledocholithiasis and subsequent duodenal perforation status post repair with intra-abdominal abscess post percutaneous drainage with growth of Enterococcus faecalis and repeat open drainage 04/01/2016 : Nephrology notes reviewed with creatinine increased to 2.6. Does have few urine eosinophils raising question of AIN. Will therefore discontinue Zosyn and start daptomycin (checked with lab and enterococcal isolate is susceptible to daptomycin) and ertapenem for coverage against E faecalis and mixed enteric geovanny. Favor use of daptomycin over vancomycin to avoid potential for additional nephrotoxicity. Both antibiotics dose adjusted for renal insufficiency. 04/03/16 15:49 Subjective: Patient complains of not being able to eat. Objective: Vital Signs Temp Pulse Resp BP Pulse Ox 37.4 C 100 18 106/64 96 04/03/16 08:00 04/03/16 10:27 04/03/16 10:27 04/03/16 08:00 04/03/16 10:27 Microbiology 03/23/16 12:50 Gram Stain - Final Peritoneal Fluid - Aspirate Anaerobic Culture - Final Enterococcus Faecalis Laboratory Results 04/03/16 05:30 04/03/16 05:30 04/02/16 04/03/16 04/04/16 05:59 05:59 05:59 Intake Total 4056 4480 Output Total 2930 3130 1235 Balance 1126 1350 -1235 Zosyn # 21 Fluconazole # 21 Urine with few eosinophils noted - Physical Exam General Appearance: no apparent distress, other (Chronically ill-appearing) EENT: No scleral icterus Respiratory: other (Decreased breath sounds bilateral bases) Cardiac/Chest: tachycardia Extremities: pedal edema (2 to 3+ bilaterally) Abdomen: distended (Mild), tender (Mild and diffuse), other (CHARLIE with bilious appearing output) - Line/s RUE PICC Lines: No drainage, No erythema ICD10 Worksheet Patient Problems: Problems Problem Status Diagnosed Hypoxia Acute Pneumonia Acute
[2016-04-03] MEDS: DAPTOmycin 600 MG in NS 100 ML IV SCH (17:10)
[2016-04-03] MEDS: ERTAPENEM 0.5 GM in NS 50 ML IV SCH (18:21)
--- NOTE | 2016-04-03 20:44 | SOAPPROG ---
SOAP Progress Note Assessment/Plan: Assessment: MILLA, creat stable urine eos +, ABX changed by ID perf bowel with multiple surgeries abd abscess Plan: agree with changing ABX no urgent HD needs follow lytes vol and renal fct diurese as needed, try not to drop BP 04/03/16 20:41 Subjective: frustrated with his situation,"people all over the [place] are looking for me." some SOB, diuresing no cp, nausea or vomiting Objective: Vital Signs Temp Pulse Resp BP Pulse Ox 37.4 C 99 16 129/69 H 97 04/03/16 20:00 04/03/16 20:00 04/03/16 20:00 04/03/16 20:00 04/03/16 20:00 Microbiology 03/23/16 12:50 Gram Stain - Final Peritoneal Fluid - Aspirate Anaerobic Culture - Final Enterococcus Faecalis Laboratory Results 04/03/16 05:30 04/03/16 05:30 04/02/16 04/03/16 04/04/16 05:59 05:59 05:59 Intake Total 4056 4480 2560 Output Total 2930 3130 3465 Balance 1126 1350 -905 PT 16.9 SEC (12.0-15.0) H 03/22/16 17:15 INR 1.37 (0.83-1.16) H 03/22/16 17:15 Physical Exam - Physical Exam General Appearance: other (ill appearing) Respiratory: wheezing, No rhonchi Cardiac/Chest: regular rate, rhythm, edema, No friction rub Extremities: swelling Neuro/Psych: alert, oriented x 3 ICD10 Worksheet Patient Problems: Problems Problem Status Diagnosed Hypoxia Acute Pneumonia Acute
[2016-04-03] MEDS: MELATONIN 3 MG TAB TUBE SCH (21:47)
[2016-04-04] MEDS: IPRATROPIUM/ALBUTEROL 3 ML DEYVIAL IH SCH ×4 (00:03→16:19)
[2016-04-04] MEDS: POTASSIUM Cl (KCl) 20 MEQ in D5W 1,000 ML IV SCH ×2 (03:31→18:34)
[2016-04-04] MEDS: HEPARIN 5,000 UNIT/0.5 ML SYR SC SCH ×3 (05:31→21:12)
[2016-04-04] MEDS: NYSTATIN SUSP 500000 UNIT/5 ML UDCUP PO SCH ×4 (05:32→20:43)
[2016-04-04 06:17] LABS: % IMMATURE GRANULYOCYTES 1.3 % (0.0-1.1); ABSOLUTE IMMATURE GRANULOCYTES 0.13 10^3/uL (0.00-0.10); ADD DIFF? NO; ADD MORPH? NO; ADD SCAN? NO; ATYPICAL LYMPHOCYTE FLAG 30 (0-99); FRAGMENT RBC FLAG 0 (0-99); HEMATOCRIT 21.7 % (40.0-51.0); HEMOGLOBIN 7.1 g/dL (13.7-17.5); LEFT SHIFT FLG 40 (0-99); LIPEMIA HEMOLYSIS FLAG 80 (0-99); MEAN CELL HEMOGLOBIN 30.1 pg (27.9-34.1); MEAN CELL HEMOGLOBIN CONCENTR. 32.7 g/dL (32.4-36.7); MEAN CELL VOLUME 91.9 fL (81.5-99.8); MEAN PLATELET VOLUME 9.9 fL (8.7-11.7); PLATELET CLUMPS FLAG 20 (0-99); PLATELET COUNT 321 10^3/uL (150-400); RED BLOOD CELL COUNT 2.36 10^6/uL (4.40-6.38); RED CELL DISTRIBUTION WIDTH 16.2 % (11.5-15.2)
[2016-04-04 06:23] LABS: ALBUMIN 2.2 g/dL (3.5-5.0); ANION GAP 11 mEq/L (8-16); CALCIUM 7.8 mg/dL (8.5-10.4); CARBON DIOXIDE 23 mEq/l (22-31); CHLORIDE 114 mEq/L (97-110); CREATININE 2.5 mg/dL (0.7-1.3); GLOMERULAR FILTRATION RATE 25; GLUCOSE 135 mg/dL (70-100); POTASSIUM 3.7 mEq/L (3.5-5.2); SODIUM 148 mEq/L (134-144)
[2016-04-04] MEDS: ERTAPENEM 0.5 GM in NS 50 ML IV SCH (08:20)
[2016-04-04] MEDS: HYDROmorphONE/DILAUDID 1 MG/ML SYR IVP PRN ×2 (08:25→12:04)
[2016-04-04] MEDS: MAGNESIUM OXIDE 400 MG TAB TUBE SCH (08:47)
[2016-04-04] MEDS: FAMOTIDINE 20 MG TAB TUBE SCH (08:47)
[2016-04-04] MEDS: LANSOPRAZOLE SUSP 30MG/10ML UDSYR (Adult) TUBE SCH ×2 (08:47→21:12)
[2016-04-04] MEDS ORDERED: ALBUMIN 25% 100 ML IV ONE (09:15)
[2016-04-04] MEDS ORDERED: FUROSEMIDE 40 MG/4 ML VIAL IVP ONE (09:15)
--- NOTE | 2016-04-04 09:19 | HOSPPROG ---
Hospitalist Progress Note Assessment/Plan: ASSESSMENT/PLAN: 81 yo male who presented with sepsis due to E coli bacteremia, source was retained gall stones. ERCP 03/12/2016 with multiple stones extracted and 2 stents placed. He then developed pancreatitis and suffered duodenal perforation , which was repaired by Dr. Dunbar on 03/16/2016 with omental flap and J tube was placed. He had persistent pain, fevers and leukocytosis and repeat CT showed complex fluid collection in RUQ / retroperitoneum likely secondary to a small bowel/bile leak. A perc drain was placed by IR on 03/23/2016. Culture on this fluid grew enterococcus. Repeat CT 03/29/2016 showed decreased but persistent complex fluid collection in the retroperitoneum and pt was taken back to OR 04/01/2016 for abdominal washout. No leak was identified at that time. He is on tube feeds. NG tube in place. Still significant output from CHARLIE drains. # duodenal perforation status post repair with omental patch - POD #17, S/P abdominal / retroperitoneal washout and patch repair POD #2. Perc drain still in place and is leaking. No output from this drain and pt recently had washout so I suspect we may be able to dc this Perc drain. Will discuss with surg and IR. - has 3 CHARLIE drains, still putting out - Perc drain leaking, little output, IR to remove today - Enterococcus in peritoneal aspirate - Atbx changed to Erta per ID, fluconazole - Cont NPO, NG tube through weekend per surg # Sepsis / E coli bacteremia due to retained gall stones. Repeat BCx's neg x4. - status post ERCP with extraction of stones / stent placement - currently on Zosyn # acute kidney injury / ?CKD - Cr stable today (down to 2.5 from 2.6), query hemodynamic related vs ATN vs interstitial nephritis. - Appreciate Renal consult - avoid nephrotoxins # acute hypoxemic respiratory failure - abdominal pain may be contributing to poor inspiratory effort. O2 needs improved, down to 3 L after diuresis yesterday # volume overload: Significant; 11 kg weight gain recorded since admission, diuresed net neg 1.5 L yesterday, weight down 2 kg - will repeat Albumin/Lasix today # hypotension/tachycardia - improved post-operatively # hypernatremia - cont D5W, follow # diarrhea - Resolved post-operatively. Pt reported a nl BM this am. # pancreatitis - resolved # anemia - s/p total 3 u prbc's, h&h stable this am # hypernatremia - resolved with D5W, follow # severe protein calorie malnutrition: Tolerating tube feeds # BPH/urinary retention - Amado in place. Started on Flomax. -D/C amado soon # Full code # SQH for VTE ppx Subjective: Pt up in chair. +eructation. +BM, loose. No fevers. NG tube in place. Still with LE edema. Amado in place, diuresing. Objective: Vital Signs Temp Pulse Resp BP Pulse Ox 36.4 C 92 16 105/65 97 04/04/16 08:00 04/04/16 08:00 04/04/16 08:00 04/04/16 08:00 04/04/16 08:00 Microbiology 03/23/16 12:50 Gram Stain - Final Peritoneal Fluid - Aspirate Anaerobic Culture - Final Enterococcus Faecalis Laboratory Results 04/04/16 05:45 04/04/16 05:45 04/03/16 04/04/16 04/05/16 05:59 05:59 05:59 Intake Total 4480 4760 Output Total 3130 6245 Balance 1350 -1485 PT 16.9 SEC (12.0-15.0) H 03/22/16 17:15 INR 1.37 (0.83-1.16) H 03/22/16 17:15 - Physical Exam Constitutional: no apparent distress Eyes: PERRL Ears, Nose, Mouth, Throat: moist mucous membranes Cardiovascular: regular rate and rhythym Respiratory: no respiratory distress, other (diminished at bases, o/w CTAB) Gastrointestinal: other (soft, mild distention, minimally tender, 3 CHARLIE drains with output, +BS) Skin: warm Neurologic: AAOx3 Psychiatric: interacting appropriately ICD10 Worksheet Patient Problems: Problems Problem Status Diagnosed Hypoxia Acute Pneumonia Acute
[2016-04-04] MEDS: FLUCONAZOLE/NaCl 100 ML IV SCH (10:21)
--- NOTE | 2016-04-04 12:05 | PCMIDPN ---
Assessment/Plan: Assessment/Plan: * E coli bacteremia due to choledocholithiasis and subsequent duodenal perforation status post repair with intra-abdominal abscess post percutaneous drainage with growth of Enterococcus faecalis and repeat open drainage 04/01/2016 : Afebrile with decreased white blood cell count. Continue daptomycin, ertapenem and fluconazole (see below regarding antibiotic changes). * Increased creatinine: Creatinine stable at 2.5. Few urine eos noted prompting change from Zosyn to daptomycin and ertapenem on 04/03/2016. 04/04/16 12:02 Subjective: Patient feels crappy. Discomfort around drain sites. Objective: Vital Signs Temp Pulse Resp BP Pulse Ox 36.7 C 92 16 126/71 H 97 04/04/16 11:25 04/04/16 11:25 04/04/16 11:25 04/04/16 11:25 04/04/16 11:25 Microbiology 03/23/16 12:50 Gram Stain - Final Peritoneal Fluid - Aspirate Anaerobic Culture - Final Enterococcus Faecalis Laboratory Results 04/04/16 05:45 04/04/16 05:45 04/03/16 04/04/16 04/05/16 05:59 05:59 05:59 Intake Total 4480 4760 Output Total 3130 6245 545 Balance 1350 -1485 -545 Daptomycin # 2 (antibiotics # 22) Ertapenem # 2 (antibiotics # 22) Fluconazole # 22 Laboratory Tests 04/02/16 05:55 Creatine Kinase 70 Hep Bs Antigen NEGATIVE Hep Bs Antibody NEGATIVE Hepatitis C Antibody NEGATIVE - Physical Exam General Appearance: alert, no apparent distress, other (Sitting in chair) EENT: other (Thick white coating on tongue), No scleral icterus Respiratory: lungs clear (Anterolaterally) Cardiac/Chest: regular rate, rhythm Extremities: pedal edema (3+ bilaterally) Abdomen: tender (Most prominent right upper quadrant), other (Bilious output in CHARLIE drains with 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
--- NOTE | 2016-04-04 13:31 | SOAPPROG ---
SOAP Progress Note Assessment/Plan: Assessment: SP DUODENAL PERF/ MINIMAL NG OUT/ 80CC CHARLIE DRAINAGE/ ABD SOFT/ WOUND OK/ AFEBRILE Plan: CONTINUE NPO/ CONTINUE TUBE FEEDS 03/17/16 09:17 04/04/16 13:30 AFEBRILE/ WOUNDS OK/ DRAINAGE MODERATE/ HCT 22/ WBC 11K/ CO GAS DISCOMFORT Objective: Vital Signs Temp Pulse Resp BP Pulse Ox 36.7 C 92 16 126/71 H 97 04/04/16 11:25 04/04/16 11:25 04/04/16 11:25 04/04/16 11:25 04/04/16 11:25 Microbiology 03/23/16 12:50 Gram Stain - Final Peritoneal Fluid - Aspirate Anaerobic Culture - Final Enterococcus Faecalis Laboratory Results 04/04/16 05:45 04/04/16 05:45 04/03/16 04/04/16 04/05/16 05:59 05:59 05:59 Intake Total 4480 4760 Output Total 8310 6204 545 Balance 1350 -1485 -545 PT 16.9 SEC (12.0-15.0) H 03/22/16 17:15 INR 1.37 (0.83-1.16) H 03/22/16 17:15 ICD10 Worksheet Patient Problems: Problems Problem Status Diagnosed Hypoxia Acute Pneumonia Acute
--- NOTE | 2016-04-04 13:33 | SOAPPROG ---
SOAP Progress Note Assessment/Plan: Assessment: MILLA, creat stable, 2.5-2.6 urine eos +, ABX changed by ID, now Dapto and Ertapenem perf bowel with multiple surgeries abd abscess sodium creeping up despite significant edema Plan: agree with changing ABX no urgent HD needs follow lytes vol and renal fct diurese as needed, try not to drop BP 04/03/16 20:41 04/04/16 13:30 Subjective: up to chair still not feeling well no new complaints tired of being here Objective: Vital Signs Temp Pulse Resp BP Pulse Ox 36.7 C 92 16 126/71 H 97 04/04/16 11:25 04/04/16 11:25 04/04/16 11:25 04/04/16 11:25 04/04/16 11:25 Microbiology 03/23/16 12:50 Gram Stain - Final Peritoneal Fluid - Aspirate Anaerobic Culture - Final Enterococcus Faecalis Laboratory Results 04/04/16 05:45 04/04/16 05:45 04/03/16 04/04/16 04/05/16 05:59 05:59 05:59 Intake Total 4480 4760 Output Total 3130 6245 545 Balance 1350 -1485 -545 PT 16.9 SEC (12.0-15.0) H 03/22/16 17:15 INR 1.37 (0.83-1.16) H 03/22/16 17:15 Physical Exam - Physical Exam General Appearance: alert Respiratory: No rhonchi, No wheezing Cardiac/Chest: regular rate, rhythm, edema, No friction rub (bs+, mildly tender) Extremities: swelling Neuro/Psych: alert, oriented x 3 ICD10 Worksheet Patient Problems: Problems Problem Status Diagnosed Hypoxia Acute Pneumonia Acute
--- NOTE | 2016-04-04 16:56 | IR ---
INTERVENTIONAL CONSULT RELEVANT HISTORY: The patient is status post bowel perforation and status post multiple surgeries wit h a CHARLIE drain that was placed percutaneously by CT guidance into the right flank region on March 23, 2016. The drain is currently not draining anything and removal was requested. PROCEDURE: This procedure was done at patient's bedside while patient was in upright position after a short walk around the [place]. After the dressing of the existing pigtail catheter was removed, it was noted that there was a signif icant amount of accumulation of brown fluid under the dressing. The drain was cut and removed. With the existing drainage hole, there was the same brown material that was copiously exiting, soakin g through ABD pads fairly rapidly. Within about a 5 minute time, we went through two buckets of 4 x 4 and 3 ABD pads. I asked this nurse to bring the an ostomy bag, which was then cut and carefully positioned over the e xit hole of the drain. The subsequent brown material was then collected in the ostomy bag. ASSESSMENT: 1. Abscess drain in the right flank area was removed. 2. Significant amount of brownish material draining out of the exit site after the drain was removed, now collecting into an ostomy bag. PLAN: 1. If this is residual fluid, it should stop draining at some point. Having the drain out is better t sanchez keeping it in. 2. If patient's clinical situation worsens, then I would recommend a repeat CT scan of the abdomen an d pelvis with IV contrast to see if there is a significant residual fluid collection that needs to be drained again percutaneously. 3. If this fluid collection somehow is communicating with bowel, then it would not necessarily decrea se in amount. If that is the case, abscessogram or fistulogram may be amenable. The above was discussed with Dr. Abbie Clifton. Total [id number] procedure time was 25 minutes. Crosscutting Measure: Patient's current list of medications including all known prescriptions, over- the-counters, herbals, and vitamin/mineral/dietary supplements are reviewed. Medications' name, dosa ge, frequency, and route of administration are confirmed. The patient is a nonsmoker.
[2016-04-04] MEDS: SIMETHICONE 80 MG TAB CHEW PO SCH ×2 (20:37→20:43)
[2016-04-04] MEDS: DIPHENOXYLATE/ATROPINE LOMOTIL 1 TAB TUBE PRN (20:44)
[2016-04-04] MEDS: MELATONIN 3 MG TAB TUBE SCH (20:44)
[2016-04-05] MEDS: IPRATROPIUM/ALBUTEROL 3 ML DEYVIAL IH SCH ×4 (00:29→17:38)
[2016-04-05] MEDS: HYDROmorphONE/DILAUDID 1 MG/ML SYR IVP PRN (02:32)
[2016-04-05 04:27] LABS: % IMMATURE GRANULYOCYTES 1.5 % (0.0-1.1); ABSOLUTE IMMATURE GRANULOCYTES 0.15 10^3/uL (0.00-0.10); ADD DIFF? NO; ADD MORPH? YES; ADD SCAN? NO; ATYPICAL LYMPHOCYTE FLAG 40 (0-99); FRAGMENT RBC FLAG 0 (0-99); LEFT SHIFT FLG 30 (0-99); LIPEMIA HEMOLYSIS FLAG 80 (0-99); MEAN CELL HEMOGLOBIN 30.2 pg (27.9-34.1); MEAN CELL HEMOGLOBIN CONCENTR. 32.4 g/dL (32.4-36.7); MEAN CELL VOLUME 93.3 fL (81.5-99.8); MEAN PLATELET VOLUME 9.8 fL (8.7-11.7); PLATELET CLUMPS FLAG 0 (0-99); PLATELET COUNT 300 10^3/uL (150-400); RED BLOOD CELL COUNT 2.25 10^6/uL (4.40-6.38); RED CELL DISTRIBUTION WIDTH 16.3 % (11.5-15.2)
[2016-04-05 04:35] LABS: HEMOGLOBIN 6.8 g/dL (13.7-17.5)
[2016-04-05 04:46] LABS: ALBUMIN 2.3 g/dL (3.5-5.0); ANION GAP 11 mEq/L (8-16); CALCIUM 7.7 mg/dL (8.5-10.4); CARBON DIOXIDE 24 mEq/l (22-31); CHLORIDE 114 mEq/L (97-110); CREATININE 2.3 mg/dL (0.7-1.3); GLOMERULAR FILTRATION RATE 28; GLUCOSE 140 mg/dL (70-100); POTASSIUM 3.7 mEq/L (3.5-5.2); SODIUM 149 mEq/L (134-144)
[2016-04-05] MEDS: NYSTATIN SUSP 500000 UNIT/5 ML UDCUP PO SCH ×4 (04:49→21:42)
[2016-04-05] MEDS: HEPARIN 5,000 UNIT/0.5 ML SYR SC SCH ×3 (04:51→21:42)
[2016-04-05 05:03] LABS: HYPOCHROMIA 1+; PLATELET ESTIMATE ADEQUATE (ADEQ); POLYCHROMASIA 1+
[2016-04-05] MEDS ORDERED: FUROSEMIDE 40 MG/4 ML VIAL IVP ONE (08:13)
--- NOTE | 2016-04-05 08:18 | HOSPPROG ---
Hospitalist Progress Note Assessment/Plan: ASSESSMENT/PLAN: 81 yo male who presented with sepsis due to E coli bacteremia, source was retained gall stones. ERCP 03/12/2016 with multiple stones extracted and 2 stents placed. He then developed pancreatitis and suffered duodenal perforation , which was repaired by Dr. Dunbar on 03/16/2016 with omental flap and J tube was placed. He had persistent pain, fevers and leukocytosis and repeat CT showed complex fluid collection in RUQ / retroperitoneum likely secondary to a small bowel/bile leak. A perc drain was placed by IR on 03/23/2016. Culture on this fluid grew enterococcus. Repeat CT 03/29/2016 showed decreased but persistent complex fluid collection in the retroperitoneum and pt was taken back to OR 04/01/2016 for abdominal washout. No leak was identified at that time. He is on tube feeds. NG tube in place. Still significant output from CHARLIE drains. # duodenal perforation status post repair with omental patch - POD #17, S/P abdominal / retroperitoneal washout and patch repair POD #2. Perc drain still in place and is leaking. No output from this drain and pt recently had washout so I suspect we may be able to dc this Perc drain. Will discuss with surg and IR. - has 3 CHARLIE drains, still putting out - Perc drain removed, but still some output from drain site - Enterococcus in peritoneal aspirate - Cont Erta (changed from zosyn), Dapto, fluconazole per ID - Cont NPO, NG tube # Sepsis / E coli bacteremia due to retained gall stones. Repeat BCx's neg x4. - status post ERCP with extraction of stones / stent placement - atbx as above # acute kidney injury / ?CKD - Cr trending down (2.3 from 2.6), suspect hemodynamic related - Appreciate Renal consult - avoid nephrotoxins # anemia - s/p total 3 u prbc's, hgb 6.8 this am -transfuse 1 u prbc's, followed by Lasix # acute hypoxemic respiratory failure - abdominal pain may be contributing to poor inspiratory effort. O2 needs improving, down to 2 LPM # volume overload: Significant; 11 kg weight gain recorded since admission, diuresed net neg 1.5 L yesterday, weight down 2 kg - will repeat Albumin/Lasix today # hypotension/tachycardia - improved post-operatively # hypernatremia - not improving with D5W, will ask Nephrology to weigh in # diarrhea - Resolved post-operatively. Pt reported a nl BM this am. # pancreatitis - resolved # severe protein calorie malnutrition: Tolerating tube feeds # BPH/urinary retention - Amado in place. Started on Flomax. -D/C amado soon # Full code # SQH for VTE ppx Subjective: Pt ambulated in halls today. Pain fairly well controlled. Tolerating tube feeds. No fevers. Objective: Vital Signs Temp Pulse Resp BP Pulse Ox 37.1 C 87 28 H 110/62 95 04/05/16 07:04 04/05/16 07:04 04/05/16 07:04 04/05/16 07:04 04/05/16 07:04 Laboratory Results 04/05/16 04:10 04/05/16 04:10 04/04/16 04/05/16 04/06/16 05:59 05:59 05:59 Intake Total 4760 3811 Output Total 6245 3290 1020 Balance -1485 521 -1020 PT 16.9 SEC (12.0-15.0) H 03/22/16 17:15 INR 1.37 (0.83-1.16) H 03/22/16 17:15 - Physical Exam Constitutional: no apparent distress Eyes: PERRL Ears, Nose, Mouth, Throat: moist mucous membranes Cardiovascular: regular rate and rhythym Respiratory: no respiratory distress, reduced air movement Gastrointestinal: normoactive bowel sounds, other (mild distention, minimal tenderness, no r/r/g) Skin: warm Neurologic: AAOx3 Psychiatric: interacting appropriately ICD10 Worksheet Patient Problems: Problems Problem Status Diagnosed Hypoxia Acute Pneumonia Acute
--- NOTE | 2016-04-05 09:56 | WOCRNPDOC ---
WOCRN Advanced Assessment Note - Skin Integrity Problem, Advanced Assess Coccyx Pressure Injury Dressing Type: Open to Air Site Measurement - Head-to-Toe Length X Width X Depth (cm): 1x1x0 Pressure Injury Stage: Stage 1 Pressure Injury Present on Admit: No Pulse Location & Description: Intact non blanching erythema with areas of partial thickness friction injury surrounding it and on the buttocks.
[2016-04-05] MEDS: MAGNESIUM OXIDE 400 MG TAB TUBE SCH (10:21)
[2016-04-05] MEDS: SIMETHICONE 80 MG TAB CHEW PO SCH (10:21)
[2016-04-05] MEDS: ERTAPENEM 0.5 GM in NS 50 ML IV SCH (10:22)
[2016-04-05] MEDS: FLUCONAZOLE/NaCl 100 ML IV SCH (10:23)
--- NOTE | 2016-04-05 10:29 | SOAPPROG ---
SOAP Progress Note Assessment/Plan: Assessment/Plan - 81yo M s/p ex-lap x2 c duodenal repair and washout - Abdominal exam continues to be reassuring. WBC down to normal and he has been afebrile - One CHARLIE continues to have bilious output, not unexpected. Site where perc drain was removed is still draining into the ostomy appliance but slowing. - NGT with adequate output, will keep addl 24hrs, likely d/c tomorrow - Cont J tube feeds, will restart lomotil when appropriate to help with diarrhea - Overall, does appear to be improving daily. Leak, if present is contained. If continue to make progress could be ready for rehab next week. 03/16/16 13:25 03/18/16 11:00 03/19/16 12:10 03/22/16 10:11 03/22/16 14:17 03/23/16 15:52 03/24/16 10:34 03/25/16 13:54 03/26/16 11:15 03/26/16 11:17 03/29/16 11:06 03/30/16 11:08 04/02/16 10:50 04/03/16 08:40 04/05/16 10:27 Subjective: A little confused this AM but after talking for a bit is more with it. Pain appropriate, still having diarrhea Objective: Vital Signs Temp Pulse Resp BP Pulse Ox 37.1 C 87 28 H 110/62 95 04/05/16 07:04 04/05/16 07:04 04/05/16 07:04 04/05/16 07:04 04/05/16 07:04 Laboratory Results 04/05/16 04:10 04/05/16 04:10 04/04/16 04/05/16 04/06/16 05:59 05:59 05:59 Intake Total 4760 3811 Output Total 6260 3290 1140 Balance -1485 521 -1140 PT 16.9 SEC (12.0-15.0) H 03/22/16 17:15 INR 1.37 (0.83-1.16) H 03/22/16 17:15 ICD10 Worksheet Patient Problems: Problems Problem Status Diagnosed Hypoxia Acute Pneumonia Acute
[2016-04-05] MEDS: POTASSIUM Cl (KCl) 20 MEQ in D5W 1,000 ML IV SCH (10:31)
[2016-04-05] MEDS: FAMOTIDINE 20 MG TAB TUBE SCH (10:43)
[2016-04-05] MEDS ORDERED: ALBUTEROL 3 ML DEYVIAL ONE (11:11)
[2016-04-05] MEDS: LANSOPRAZOLE SUSP 30MG/10ML UDSYR (Adult) TUBE SCH (11:13)
[2016-04-05] MEDS: PANTOPRAZOLE SODIUM 40 MG in NS 100 ML IV SCH ×2 (13:15→21:42)
[2016-04-05] MEDS: DAPTOmycin 600 MG in NS 100 ML IV SCH (16:51)
--- NOTE | 2016-04-05 17:12 | PCMIDPN ---
Assessment/Plan: Assessment: E coli bacteremia-source likely the biliary tract as a high burden of common bile duct stones and debris were discovered and removed on ERCP. This bacteremia is resolved after completion of 2 weeks of therapy. Patient is status post small bowel rupture and retroperitoneal necrosis secondary to bile leakage. The most recent trip to the operating room seems to have clinically improved things. His white blood cell count is below 10,000. Clinically he looks stronger and less toxic. He is continuing to be managed on daptomycin, ertapenem and fluconazole. Plan: 1. Continue intravenous daptomycin, ertapenem and fluconazole. Duration to be determined by the progress of his bowel and bile leaks. 2. Follow clinical course. 04/05/16 17:43 04/05/16 17:58 Subjective: Patient is sitting up in his chair. Does not like his nasogastric tube. Otherwise is doing fairly well. Family is in room. Long discussion with patient and family regarding specific questions each family member had about the patient's issues. Objective: Daptomycin # 3 Ertapenem # 3 Fluconazole # 23 Vital Signs Temp Pulse Resp BP Pulse Ox 36.5 C 94 18 126/62 H 98 04/05/16 15:00 04/05/16 15:00 04/05/16 15:00 04/05/16 15:00 04/05/16 15:00 Laboratory Results 04/05/16 04:10 04/05/16 04:10 04/04/16 04/05/16 04/06/16 05:59 05:59 05:59 Intake Total 4760 3811 Output Total 6261 5780 2860 Balance -1485 521 -2860 - Physical Exam General Appearance: WD/WN, alert, no apparent distress, non-toxic Respiratory: lungs clear, normal breath sounds, No respiratory distress Cardiac/Chest: regular rate, rhythm, No tachycardia Skin: normal color, warm/dry, No rash Neuro/Psych: alert, normal mood/affect, oriented x 3 ICD10 Worksheet Patient Problems: Problems Problem Status Diagnosed Hypoxia Acute Pneumonia Acute
--- NOTE | 2016-04-05 18:07 | SOAPPROG ---
SOAP Progress Note Assessment/Plan: Assessment: 1. arf: atn vs ain. Creat now falling with good uo. Abx changed. 2. HyperNa: due to inability to take po, exacerbated by wound/gi drainage and diuresis. Will increase d5w and feeding tube water flushes. Would hold further diuretics. 3. Edema: would hold further diuresis until Na corrected as above. Plan: 04/05/16 18:04 Subjective: Up in chair, thirsty. Family states edema much better than earlier in admit. Objective: Vital Signs Temp Pulse Resp BP Pulse Ox 36.5 C 95 20 126/62 H 96 04/05/16 15:00 04/05/16 17:41 04/05/16 17:41 04/05/16 15:00 04/05/16 17:41 Laboratory Results 04/05/16 04:10 04/05/16 04:10 04/04/16 04/05/16 04/06/16 05:59 05:59 05:59 Intake Total 4760 3811 Output Total 6239 3290 3410 Balance -1485 521 -3410 PT 16.9 SEC (12.0-15.0) H 03/22/16 17:15 INR 1.37 (0.83-1.16) H 03/22/16 17:15 Physical Exam - Physical Exam General Appearance: no apparent distress Respiratory: decreased breath sounds Cardiac/Chest: irregularly irregular Abdomen: non-tender Extremities: swelling (edema to hips) ICD10 Worksheet Patient Problems: Problems Problem Status Diagnosed Hypoxia Acute Pneumonia Acute
[2016-04-05] MEDS: D5W 1,000 ML IV SCH (18:31)
[2016-04-05] MEDS: MELATONIN 3 MG TAB TUBE SCH (21:42)
[2016-04-06] MEDS: IPRATROPIUM/ALBUTEROL 3 ML DEYVIAL IH SCH ×4 (00:23→16:20)
[2016-04-06 03:58] LABS: % IMMATURE GRANULYOCYTES 2.7 % (0.0-1.1); ABSOLUTE IMMATURE GRANULOCYTES 0.29 10^3/uL (0.00-0.10); ADD DIFF? NO; ADD MORPH? NO; ADD SCAN? NO; ATYPICAL LYMPHOCYTE FLAG 40 (0-99); FRAGMENT RBC FLAG 0 (0-99); HEMATOCRIT 27.6 % (40.0-51.0); LEFT SHIFT FLG 40 (0-99); LIPEMIA HEMOLYSIS FLAG 80 (0-99); MEAN CELL HEMOGLOBIN 30.3 pg (27.9-34.1); MEAN CELL HEMOGLOBIN CONCENTR. 32.6 g/dL (32.4-36.7); MEAN CELL VOLUME 92.9 fL (81.5-99.8); MEAN PLATELET VOLUME 9.7 fL (8.7-11.7); PLATELET CLUMPS FLAG 30 (0-99); PLATELET COUNT 364 10^3/uL (150-400); RED BLOOD CELL COUNT 2.97 10^6/uL (4.40-6.38); RED CELL DISTRIBUTION WIDTH 16.4 % (11.5-15.2)
[2016-04-06 04:07] LABS: ALANINE AMINOTRANSFERASE 49 IU/L (21-72); ALBUMIN 2.5 g/dL (3.5-5.0); ALKALINE PHOSPHATASE 126 IU/L (38-126); ANION GAP 11 mEq/L (8-16); ASPARTATE AMINOTRANSFERASE 38 IU/L (17-59); BILIRUBIN,TOTAL 0.7 mg/dL (0.1-1.4); BILIRUBIN-CONJUGATED 0.4 mg/dL (0.0-0.5); BILIRUBIN-UNCONJUGATED 0.3 mg/dL (0.0-1.1); CALCIUM 8.1 mg/dL (8.5-10.4); CARBON DIOXIDE 25 mEq/l (22-31); CHLORIDE 111 mEq/L (97-110); CREATININE 2.2 mg/dL (0.7-1.3); GLOMERULAR FILTRATION RATE 29; GLUCOSE 122 mg/dL (70-100); SODIUM 147 mEq/L (134-144); TOTAL PROTEIN 5.7 g/dL (6.3-8.2)
[2016-04-06] MEDS: D5W 1,000 ML IV SCH ×3 (04:45→23:03)
[2016-04-06] MEDS: HEPARIN 5,000 UNIT/0.5 ML SYR SC SCH ×3 (05:18→21:56)
[2016-04-06] MEDS: NYSTATIN SUSP 500000 UNIT/5 ML UDCUP PO SCH ×4 (05:18→21:56)
[2016-04-06] MEDS: FLUCONAZOLE/NaCl 100 ML IV SCH (07:50)
[2016-04-06] MEDS: MAGNESIUM OXIDE 400 MG TAB TUBE SCH (07:51)
[2016-04-06] MEDS: PANTOPRAZOLE SODIUM 40 MG in NS 100 ML IV SCH ×2 (07:52→21:56)
[2016-04-06] MEDS: ERTAPENEM 0.5 GM in NS 50 ML IV SCH (08:09)
--- NOTE | 2016-04-06 10:51 | SOAPPROG ---
SOAP Progress Note Assessment/Plan: Assessment/Plan - 81yo M s/p ex-lap x2 c duodenal repair and washout - Abdomen soft, Incision c/d/i - #2 CHARLIE continues to have bilious output, around 400cc/24hrs. Will cont to monitor, but leak controlled. Other JPs serosang - Ostomy appliance over posterior drain site slowing, will likely remove tomorrow - NGT with scant drainage, remove today. 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 03/16/16 13:25 03/18/16 11:00 03/19/16 12:10 03/22/16 10:11 03/22/16 14:17 03/23/16 15:52 03/24/16 10:34 03/25/16 13:54 03/26/16 11:15 03/26/16 11:17 03/29/16 11:06 03/30/16 11:08 04/02/16 10:50 04/03/16 08:40 04/05/16 10:27 04/06/16 10:49 Subjective: In better spirits today, much more alert and oriented than previous Objective: Vital Signs Temp Pulse Resp BP Pulse Ox 37.4 C 97 18 119/68 93 04/06/16 07:29 04/06/16 07:29 04/06/16 07:29 04/06/16 07:29 04/06/16 07:29 Laboratory Results 04/06/16 03:25 04/06/16 03:25 04/05/16 04/06/16 04/07/16 05:59 05:59 05:59 Intake Total 3811 5060 Output Total 3290 5240 80 Balance 521 -180 -80 PT 16.9 SEC (12.0-15.0) H 03/22/16 17:15 INR 1.37 (0.83-1.16) H 03/22/16 17:15 ICD10 Worksheet Patient Problems: Problems Problem Status Diagnosed Hypoxia Acute Pneumonia Acute
--- NOTE | 2016-04-06 10:56 | HOSPPROG ---
Hospitalist Progress Note Assessment/Plan: ASSESSMENT/PLAN: 81 yo male who presented with sepsis due to E coli bacteremia, source was retained gall stones. ERCP 03/12/2016 with multiple stones extracted and 2 stents placed. He then developed pancreatitis and suffered duodenal perforation , which was repaired by Dr. Dunbar on 03/16/2016 with omental flap and J tube was placed. He had persistent pain, fevers and leukocytosis and repeat CT showed complex fluid collection in RUQ / retroperitoneum likely secondary to a small bowel/bile leak. A perc drain was placed by IR on 03/23/2016. Culture on this fluid grew enterococcus. Repeat CT 03/29/2016 showed decreased but persistent complex fluid collection in the retroperitoneum and pt was taken back to OR 04/01/2016 for abdominal washout. No leak was identified at that time. He is on tube feeds. NG tube in place. Still significant output from CHARLIE drains. # duodenal perforation s/p repair with omental patch - POD #21 # S/P abdominal / retroperitoneal washout and patch repair POD #5. - has 3 CHARLIE drains, still putting out - Perc drain removed, but still some output from drain site - Enterococcus in peritoneal aspirate - Cont Erta (changed from zosyn), Dapto, fluconazole per ID - Cont NPO, tube feeds - NG tube might come out today, per surgery # Sepsis / E coli bacteremia due to retained gall stones. Repeat BCx's neg x4. - status post ERCP with extraction of stones / stent placement - atbx as above # acute kidney injury / ?CKD - Cr trending down (2.2 from 2.6), suspect hemodynamic related vs ATN vs AIN - Appreciate Renal consult - avoid nephrotoxins - avoid hypotension, flomax held for this reason # anemia - s/p total 4 u prbc's, most recently transfused 04/05, hgb improved to 9 today - follow # acute hypoxemic respiratory failure - abdominal pain may be contributing to poor inspiratory effort. O2 needs improving, down to 2 LPM # volume overload: 11 kg weight gain post-operatively, diuresed 6 kg of this over past 4-5 days with albumin/lasix. - holding diuresis today # hypotension/tachycardia - improved post-operatively # hypernatremia - improving with increased D5W, holding Lasix today. - decrease D5W per renal, appreciate assistance # diarrhea - Resolved post-operatively. # pancreatitis - resolved # severe protein calorie malnutrition: Tolerating tube feeds # BPH/urinary retention - Amado in place, remains due to poor mobility / intermittent diuresis. Started on Flomax. -D/C amado soon -Flomax held to avoid hypotension, may resume soon as BP stabilizing # Full code # DVT PPLX - SQH Subjective: Pt doing a bit better today. Denies pain. +BM's. NG tube still in place. No fever, low grade temp, 99.3. No CP or SOB. Ambulating in halls. Excellent UOP. Objective: Vital Signs Temp Pulse Resp BP Pulse Ox 37.4 C 97 18 119/68 93 04/06/16 07:29 04/06/16 07:29 04/06/16 07:29 04/06/16 07:29 04/06/16 07:29 Laboratory Results 04/06/16 03:25 04/06/16 03:25 04/05/16 04/06/16 04/07/16 05:59 05:59 05:59 Intake Total 3811 5060 Output Total 3290 5240 80 Balance 521 -180 -80 PT 16.9 SEC (12.0-15.0) H 03/22/16 17:15 INR 1.37 (0.83-1.16) H 03/22/16 17:15 - Physical Exam Constitutional: no apparent distress Eyes: PERRL Ears, Nose, Mouth, Throat: moist mucous membranes Cardiovascular: regular rate and rhythym Respiratory: no respiratory distress, clear to auscultation, reduced air movement Gastrointestinal: normoactive bowel sounds, other (abd soft, minimal distention , non-tender. CHARLIE drains with ongoing output) Skin: warm Neurologic: AAOx3 ICD10 Worksheet Patient Problems: Problems Problem Status Diagnosed Hypoxia Acute Pneumonia Acute
--- NOTE | 2016-04-06 12:03 | PCMIDPN ---
Assessment/Plan: Assessment/Plan: 1. E. coli sepsis/bacteremia secondary to choledolithiasis, with small duodenal perforation/Peritonitis now with intraabdominal abscess: - s/p repair of duodenum 03/15/16. Formal wash out with evidence of retroperitoneal fat necrosis. - Currently on Dapto, invanz, fluconazole. -negative blood cx from 03/09/16. blood cx from 03/21 ngtd. c. diff neg - wbc trending up slightly with low grade temps----will follow closely -discussed with family. Meds ceftraixone 2g daily- 03/17/16-----change to zosyn today 03/23/16 fluconazole 200mg daily- 03/19/16--- s/p zosyn 3.3.75gm q6 03/15/16-03/17 micafungin 100mg daily from 03/15/16- 03/19/16 Subjective: afebrile. sitting up in chair. family at bedside. less overall abd pain. denies sob. mouth dry. Objective: Vital Signs Temp Pulse Resp BP Pulse Ox 36.9 C 92 18 128/84 H 93 04/06/16 11:17 04/06/16 11:17 04/06/16 11:17 04/06/16 11:17 04/06/16 11:17 Laboratory Results 04/06/16 03:25 04/06/16 03:25 04/05/16 04/06/16 04/07/16 05:59 05:59 05:59 Intake Total 3811 5060 Output Total 3290 5240 80 Balance 521 -180 -80 - Physical Exam General Appearance: alert, no apparent distress Respiratory: coarse breath sounds (mild at bases) Cardiac/Chest: regular rate, rhythm Extremities: swelling (bilaterally LE) Abdomen: normal bowel sounds, soft, distended, other (3 etienne: two with serosanguinous drainage, one bilious. ostomy on right flank/back with bilious material noted.) Skin: No erythema ICD10 Worksheet Patient Problems: Problems Problem Status Diagnosed Hypoxia Acute Pneumonia Acute
[2016-04-06] MEDS: ACETAMINOPHEN 650 MG/20.3 ML UDCUP TUBE PRN (12:20)
--- NOTE | 2016-04-06 12:40 | SOAPPROG ---
SOAP Progress Note Assessment/Plan: Assessment: 1. MILLA Non oliguric. Peaked at 2.6, now down to 2.2. AIN +/- ATN and hemodynamic issues. Total body volume up, but likely IV good. Excellent UO with lasix and albumin. Would avoid corticosteroids. 2. Hypernatremia Better. Will reduce D5W slightly. Plan: 04/06/16 12:37 Subjective: Doing fair Objective: Vital Signs Temp Pulse Resp BP Pulse Ox 36.9 C 92 18 128/84 H 93 04/06/16 11:17 04/06/16 11:17 04/06/16 11:17 04/06/16 11:17 04/06/16 11:17 Laboratory Results 04/06/16 03:25 04/06/16 03:25 04/05/16 04/06/16 04/07/16 05:59 05:59 05:59 Intake Total 3811 5060 Output Total 3290 5240 80 Balance 521 -180 -80 PT 16.9 SEC (12.0-15.0) H 03/22/16 17:15 INR 1.37 (0.83-1.16) H 03/22/16 17:15 Physical Exam - Physical Exam General Appearance: mild distress Respiratory: decreased breath sounds Cardiac/Chest: regular rate, rhythm Abdomen: other (drains noted) Male Genitalia: other ([place] due to HOWARD) Extremities: pedal edema, other (3+ hip edema) ICD10 Worksheet Patient Problems: Problems Problem Status Diagnosed Hypoxia Acute Pneumonia Acute
[2016-04-06] MEDS: MELATONIN 3 MG TAB TUBE SCH (21:56)
[2016-04-07 05:18] LABS: ALBUMIN 2.2 g/dL (3.5-5.0); ANION GAP 8 mEq/L (8-16); CALCIUM 7.7 mg/dL (8.5-10.4); CARBON DIOXIDE 27 mEq/l (22-31); CHLORIDE 106 mEq/L (97-110); CREATININE 1.9 mg/dL (0.7-1.3); GLOMERULAR FILTRATION RATE 34; GLUCOSE 129 mg/dL (70-100); POTASSIUM 4.2 mEq/L (3.5-5.2); SODIUM 141 mEq/L (134-144)
[2016-04-07] MEDS: HEPARIN 5,000 UNIT/0.5 ML SYR SC SCH ×3 (05:27→22:17)
[2016-04-07 05:46] LABS: ADD DIFF? YES; ADD MORPH? NO; ADD SCAN? NO; ATYPICAL LYMPHOCYTE FLAG 20 (0-99); FRAGMENT RBC FLAG 0 (0-99); HEMATOCRIT 24.9 % (40.0-51.0); HEMOGLOBIN 8.2 g/dL (13.7-17.5); LEFT SHIFT FLG 40 (0-99); LIPEMIA HEMOLYSIS FLAG 80 (0-99); MEAN CELL HEMOGLOBIN CONCENTR. 32.9 g/dL (32.4-36.7); MEAN CELL VOLUME 91.2 fL (81.5-99.8); MEAN PLATELET VOLUME 9.7 fL (8.7-11.7); PLATELET CLUMPS FLAG 20 (0-99); PLATELET COUNT 325 10^3/uL (150-400); RED BLOOD CELL COUNT 2.73 10^6/uL (4.40-6.38); RED CELL DISTRIBUTION WIDTH 16.3 % (11.5-15.2)
[2016-04-07] MEDS: IPRATROPIUM/ALBUTEROL 3 ML DEYVIAL IH SCH ×5 (06:07→23:45)
[2016-04-07 06:27] LABS: PLATELET ESTIMATE ADEQUATE (ADEQ)
[2016-04-07 06:28] LABS: HYPOCHROMIA 1+; MACROCYTES 1+; POLYCHROMASIA 1+
[2016-04-07] MEDS: NYSTATIN SUSP 500000 UNIT/5 ML UDCUP PO SCH ×4 (06:51→22:18)
[2016-04-07] MEDS: ERTAPENEM 0.5 GM in NS 50 ML IV SCH (08:08)
[2016-04-07] MEDS: PANTOPRAZOLE SODIUM 40 MG in NS 100 ML IV SCH ×2 (08:09→22:18)
[2016-04-07] MEDS: MAGNESIUM OXIDE 400 MG TAB TUBE SCH (08:10)
[2016-04-07] MEDS: D5W 1,000 ML IV SCH (08:20)
[2016-04-07] MEDS: FLUCONAZOLE/NaCl 100 ML IV SCH (08:52)
--- NOTE | 2016-04-07 09:35 | PCMIDPN ---
Assessment/Plan: # DU perf with obvious intra-abdominal spillage and subsequent identification of small leak 03/22 with perihepatic fluid abscess status post IR drainage 03/23 meade-susceptible enterococcus. Went back to the OR 04/02 with right-sided abscess /necrotic fat which was debrided. --continue daptomycin, ertapenem and fluconazole # Leukocytosis, 9% bands: Relatively stable in the 9-10 range # Acute renal failure: Improved, patient was taken off Zosyn due to potential contributing factor of AIN. Renal function is improving. Will reassess if antibiotic dosing is correct # persistent diarrhea likely due to tube feeds, C diff negative 03/27/2016 #Meade-S E coli bacteremia, secondary to choledocholithiasis s/p ERCP. 03/09 and 03/21 blood cx demonstrate clearance. s/p 2 weeks of therapy at 03/21/16 Meds, antibiotic day # 25 Daptomycin 600 mg IV Q 48 Ertapenem 500 mg IV daily Fluconazole 200 mg IV daily Microbiology 03/21 blood cultures 2 sets: no growth 03/23 abdominal aspirate: 3+ GPCs, amp-S enterococcus 03/09 blood cultures 2 sets negative 03/07 blood cultures 2 sets: E coli Subjective: Patient is fairly withdrawn today. No abdominal pain. Still with loose bowel movements Objective: Vital Signs Temp Pulse Resp BP Pulse Ox 37.1 C 94 18 119/70 95 04/07/16 08:00 04/07/16 08:00 04/07/16 08:00 04/07/16 08:00 04/07/16 08:00 Laboratory Results 04/07/16 05:30 04/07/16 04:50 04/06/16 04/07/16 04/08/16 05:59 05:59 05:59 Intake Total 5060 5108 Output Total 5240 3355 Balance -180 1753 - Physical Exam General Appearance: alert, obese EENT: pale conjunctiva, No scleral icterus Respiratory: other (Decreased breath sounds in the base), No accessory muscle use Cardiac/Chest: regular rate, rhythm Extremities: pedal edema (Improved) Abdomen: normal bowel sounds, non-tender, soft, other (# 2 CHARLIE drain with brown fluid, CHARLIE drain 1 and 3 with serosanguineous fluid), No distended, No guarding Male Genitalia: amado Neuro/Psych: alert, oriented x 3, depressed affect - Line/s RUE PICC Lines: No drainage, No erythema ICD10 Worksheet Patient Problems: Problems Problem Status Diagnosed Hypoxia Acute Pneumonia Acute
[2016-04-07] MEDS ORDERED: 1/2 NS 1,000 ML IV SCH (10:00)
--- NOTE | 2016-04-07 10:00 | HOSPPROG ---
Hospitalist Progress Note Assessment/Plan: ASSESSMENT/PLAN: 81 yo male who presented with sepsis due to E coli bacteremia, source was retained gall stones. ERCP 03/12/2016 with multiple stones extracted and 2 stents placed. He then developed pancreatitis and suffered duodenal perforation , which was repaired by Dr. Dunbar on 03/16/2016 with omental flap and J tube was placed. He had persistent pain, fevers and leukocytosis and repeat CT showed complex fluid collection in RUQ / retroperitoneum likely secondary to a small bowel/bile leak. A perc drain was placed by IR on 03/23/2016. Culture on this fluid grew enterococcus. Repeat CT 03/29/2016 showed decreased but persistent complex fluid collection in the retroperitoneum and pt was taken back to OR 04/01/2016 for abdominal washout. No leak was identified at that time. He is on tube feeds. Still significant output from CHARLIE drains. # duodenal perforation s/p repair with omental patch - POD #22 # S/P abdominal / retroperitoneal washout and patch repair POD #6. - has 3 CHARLIE drains, still putting out - Perc drain removed, but still some output from drain site - Enterococcus in peritoneal aspirate - Cont Erta (changed from zosyn), Dapto, fluconazole per ID - Cont NPO, tube feeds # Sepsis / E coli bacteremia due to retained gall stones. Repeat BCx's neg x4. - status post ERCP with extraction of stones / stent placement - atbx as above # acute kidney injury / ?CKD - Cr trending down (1.9 today), suspect hemodynamic related vs ATN vs AIN - Appreciate Renal consult - avoid nephrotoxins - avoid hypotension, flomax held for this reason # anemia - s/p total 4 u prbc's, most recently transfused 04/05, hgb has dropped to 8.2 today - monitor closely -transfuse PRN, may need additional soon # acute hypoxemic respiratory failure - abdominal pain may be contributing to poor inspiratory effort. O2 needs improving, down to 2 LPM # volume overload: 11 kg weight gain post-operatively, diuresed intermittently on albumin/lasix. - holding diuresis today # hypotension/tachycardia - improved post-operatively # hypernatremia - Resolved with D5W. Will changed to 1/2NS at 75 ml/hr until the pt is seen by Nephrology today. # diarrhea - Intermitted. Stop Mag Oxide, likely contributing # pancreatitis - resolved # severe protein calorie malnutrition: Tolerating tube feeds # BPH/urinary retention - Amado in place, remains due to poor mobility / intermittent diuresis. Started on Flomax. -D/C amado soon -Flomax held to avoid hypotension, may resume soon as BP stabilizing # Full code # DVT PPLX - SQH Subjective: Pt doing a bit better today. Denies pain. +BM's, still with intermitted diarrhea NG pulled yesterday No CP or SOB. Ambulating in halls. Excellent UOP. Na has normalized Hgb has decreased Cr improving I: 5108, O: 3355 Objective: - Physical Exam VS: BP ok, on 2 L Constitutional: no apparent distress Eyes: PERRL Ears, Nose, Mouth, Throat: moist mucous membranes Cardiovascular: regular rate and rhythym Respiratory: no respiratory distress, clear to auscultation, reduced air movement Gastrointestinal: normoactive bowel sounds, other (abd soft, minimal distention , non-tender. CHARLIE drains with ongoing output) Skin: warm Neurologic: AAOx3 Total time spent 35 minutes Objective: Vital Signs Temp Pulse Resp BP Pulse Ox 37.1 C 94 18 119/70 95 04/07/16 08:00 04/07/16 08:00 04/07/16 08:00 04/07/16 08:00 04/07/16 08:00 Laboratory Results 04/07/16 05:30 04/07/16 04:50 04/06/16 04/07/16 04/08/16 05:59 05:59 05:59 Intake Total 5060 5108 Output Total 5240 3355 Balance -180 1753 PT 16.9 SEC (12.0-15.0) H 03/22/16 17:15 INR 1.37 (0.83-1.16) H 03/22/16 17:15 ICD10 Worksheet Patient Problems: Problems Problem Status Diagnosed Hypoxia Acute Pneumonia Acute
--- NOTE | 2016-04-07 11:25 | SOAPPROG ---
SOAP Progress Note Assessment/Plan: Assessment: 1. MILLA. Likely ischemic ATN + AIN. Zosyn discontinued. UOP excellent. Creat improving. 2. Volume overload. Diuresing ok on his own currently. Will d/c IVF. 3. Hypernatremia. Corrected nicely with D5W + flushes. Drain output way down. Continue flushes, d/c D5W. 4. Debility. Work with PT/OT. Plan: 04/07/16 11:22 Subjective: Feels like his recovery has been very slow. Has no new complaints today. Objective: Vital Signs Temp Pulse Resp BP Pulse Ox 37.1 C 94 18 119/70 95 04/07/16 08:00 04/07/16 08:00 04/07/16 08:00 04/07/16 08:00 04/07/16 08:00 Laboratory Results 04/07/16 05:30 04/07/16 04:50 04/06/16 04/07/16 04/08/16 05:59 05:59 05:59 Intake Total 5060 5108 Output Total 5240 3355 Balance -180 1753 PT 16.9 SEC (12.0-15.0) H 03/22/16 17:15 INR 1.37 (0.83-1.16) H 03/22/16 17:15 Debilitated, awake, sitting in chair RRR, no m/g/r CTAB 3-4+ LE pitting edema ICD10 Worksheet Patient Problems: Problems Problem Status Diagnosed Hypoxia Acute Pneumonia Acute
[2016-04-07] MEDS: DAPTOmycin 600 MG in NS 100 ML IV SCH (17:08)
[2016-04-07] MEDS: MELATONIN 3 MG TAB TUBE SCH (22:18)
[2016-04-08] MEDS: NYSTATIN SUSP 500000 UNIT/5 ML UDCUP PO SCH ×4 (05:56→20:03)
[2016-04-08] MEDS: HEPARIN 5,000 UNIT/0.5 ML SYR SC SCH ×3 (05:56→22:12)
[2016-04-08] MEDS: IPRATROPIUM/ALBUTEROL 3 ML DEYVIAL IH SCH ×3 (06:01→15:34)
[2016-04-08 06:26] LABS: ADD DIFF? YES; ADD MORPH? NO; ADD SCAN? NO; ATYPICAL LYMPHOCYTE FLAG 30 (0-99); FRAGMENT RBC FLAG 0 (0-99); HEMATOCRIT 24.9 % (40.0-51.0); HEMOGLOBIN 8.3 g/dL (13.7-17.5); LEFT SHIFT FLG 40 (0-99); LIPEMIA HEMOLYSIS FLAG 80 (0-99); MEAN CELL HEMOGLOBIN 31.2 pg (27.9-34.1); MEAN CELL HEMOGLOBIN CONCENTR. 33.3 g/dL (32.4-36.7); MEAN CELL VOLUME 93.6 fL (81.5-99.8); MEAN PLATELET VOLUME 9.6 fL (8.7-11.7); PLATELET CLUMPS FLAG 30 (0-99); PLATELET COUNT 274 10^3/uL (150-400); RED BLOOD CELL COUNT 2.66 10^6/uL (4.40-6.38); RED CELL DISTRIBUTION WIDTH 16.1 % (11.5-15.2)
[2016-04-08 07:04] LABS: HYPOCHROMIA 1+; MICROCYTES 1+; PLATELET ESTIMATE ADEQUATE (ADEQ)
[2016-04-08 07:44] LABS: ANION GAP 10 mEq/L (8-16); CALCIUM 7.8 mg/dL (8.5-10.4); CARBON DIOXIDE 26 mEq/l (22-31); CHLORIDE 106 mEq/L (97-110); CREATININE 1.9 mg/dL (0.7-1.3); GLOMERULAR FILTRATION RATE 34; GLUCOSE 116 mg/dL (70-100); MAGNESIUM 1.5 mg/dL (1.6-2.3); POTASSIUM 4.2 mEq/L (3.5-5.2); SODIUM 142 mEq/L (134-144)
[2016-04-08] MEDS: PANTOPRAZOLE SODIUM 40 MG in NS 100 ML IV SCH ×2 (08:27→20:03)
[2016-04-08] MEDS: ACETAMINOPHEN 650 MG/20.3 ML UDCUP TUBE PRN ×2 (08:35→20:03)
--- NOTE | 2016-04-08 09:28 | SOAPPROG ---
SOAP Progress Note Assessment/Plan: Assessment/Plan - 81yo M s/p ex-lap x2 c duodenal repair and washout - Abdomen soft, Incision c/d/i - #2 CHARLIE continues to drain the most but is slowing was 400 earlier in the week, only 120cc over lsat 24hrs, slowing output reassuring that slow leak is indeed closing - Tolerating J tube feeds, having bowel function - Abdomen is otherwise reassuring, old perc drain site has some small amt of output but is stable - If CHARLIE continues to slow could discuss Tx to rehab next week with drain, will keep strict NPO until that drain dries up. 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 03/16/16 13:25 03/18/16 11:00 03/19/16 12:10 03/22/16 10:11 03/22/16 14:17 03/23/16 15:52 03/24/16 10:34 03/25/16 13:54 03/26/16 11:15 03/26/16 11:17 03/29/16 11:06 03/30/16 11:08 04/02/16 10:50 04/03/16 08:40 04/05/16 10:27 04/06/16 10:49 04/08/16 09:26 Subjective: Mental status appropriate this AM, improving daily Objective: Vital Signs Temp Pulse Resp BP Pulse Ox 36.9 C 96 18 120/74 91 L 04/08/16 07:47 04/08/16 07:47 04/08/16 07:47 04/08/16 07:47 04/08/16 07:47 Laboratory Results 04/08/16 05:05 04/08/16 05:05 04/07/16 04/08/16 04/09/16 05:59 05:59 05:59 Intake Total 5109 2852 629 Output Total 3355 3505 Balance 1753 -653 629 PT 16.9 SEC (12.0-15.0) H 03/22/16 17:15 INR 1.37 (0.83-1.16) H 03/22/16 17:15 ICD10 Worksheet Patient Problems: Problems Problem Status Diagnosed Hypoxia Acute Pneumonia Acute
[2016-04-08] MEDS: ERTAPENEM 0.5 GM in NS 50 ML IV SCH (09:47)
[2016-04-08] MEDS: ALTEPLASE 2 MG VIAL IVP PRN (10:12)
--- NOTE | 2016-04-08 11:03 | HOSPPROG ---
Hospitalist Progress Note Assessment/Plan: ASSESSMENT/PLAN: 81 yo male who presented with sepsis due to E coli bacteremia, source was retained gall stones. ERCP 03/12/2016 with multiple stones extracted and 2 stents placed. He then developed pancreatitis and suffered duodenal perforation , which was repaired by Dr. Dunbar on 03/16/2016 with omental flap and J tube was placed. He had persistent pain, fevers and leukocytosis and repeat CT showed complex fluid collection in RUQ / retroperitoneum likely secondary to a small bowel/bile leak. A perc drain was placed by IR on 03/23/2016. Culture on this fluid grew enterococcus. Repeat CT 03/29/2016 showed decreased but persistent complex fluid collection in the retroperitoneum and pt was taken back to OR 04/01/2016 for abdominal washout. No leak was identified at that time. He is on tube feeds. # duodenal perforation s/p repair with omental patch - POD #23 # S/P abdominal / retroperitoneal washout and patch repair POD #7. - has 3 CHARLIE drains, still putting out - Perc drain removed, but still some output from drain site - Enterococcus in peritoneal aspirate - Cont Erta (changed from zosyn), Dapto, fluconazole per ID - Cont NPO, tube feeds # Sepsis / E coli bacteremia due to retained gall stones. Repeat BCx's neg x4. - status post ERCP with extraction of stones / stent placement - abx as above # acute kidney injury / ?CKD - Cr trending down (1.9 today), suspect hemodynamic related vs ATN vs AIN - Appreciate Renal consult - avoid nephrotoxins - Zosyn stopped - avoid hypotension, flomax held for this reason # anemia - s/p total 4 u prbc's, most recently transfused 04/05 - monitor closely -transfuse PRN # acute hypoxemic respiratory failure - abdominal pain may be contributing to poor inspiratory effort. O2 needs improving, down to 2 LPM # volume overload: 11 kg weight gain post-operatively. - self diuresing. No need for diuretics # hypotension/tachycardia - improved post-operatively # hypernatremia - Resolved after receiving D5W # diarrhea - Intermittent, improving # pancreatitis - resolved # severe protein calorie malnutrition: Tolerating tube feeds # BPH/urinary retention - Amado in place, remains due to poor mobility / intermittent diuresis. Started on Flomax. -D/C amado soon -I's/O's -Flomax held to avoid hypotension, may resume soon as BP stabilizing # Full code # DVT PPLX - SQH Subjective: Reports no improvement in strength but seen walking around [place]. Denies pain. +BM's No CP or SOB. Favorable self diuresis Cr stable Hgb stable Objective: - Physical Exam VS: BP ok, on 2 L Constitutional: no apparent distress Eyes: PERRL Ears, Nose, Mouth, Throat: moist mucous membranes Cardiovascular: regular rate and rhythym Respiratory: no respiratory distress, clear to auscultation, reduced air movement Gastrointestinal: normoactive bowel sounds, other (abd soft, minimal distention , non-tender. CHARLIE drains with ongoing output) Skin: warm Neurologic: AAOx3 Objective: Vital Signs Temp Pulse Resp BP Pulse Ox 36.9 C 88 12 120/74 93 04/08/16 07:47 04/08/16 09:59 04/08/16 09:59 04/08/16 07:47 04/08/16 09:59 Laboratory Results 04/08/16 05:05 04/08/16 05:05 04/07/16 04/08/16 04/09/16 05:59 05:59 05:59 Intake Total 5108 2852 729 Output Total 3355 3505 47 Balance 1753 -653 682 PT 16.9 SEC (12.0-15.0) H 03/22/16 17:15 INR 1.37 (0.83-1.16) H 03/22/16 17:15 ICD10 Worksheet Patient Problems: Problems Problem Status Diagnosed Hypoxia Acute Pneumonia Acute
[2016-04-08] MEDS: FLUCONAZOLE/NaCl 100 ML IV SCH (11:07)
--- NOTE | 2016-04-08 12:24 | SOAPPROG ---
SOAP Progress Note Assessment/Plan: Assessment: 1. MILLA. Likely ischemic ATN + AIN. Zosyn discontinued. UOP excellent. Creat improving generally, unchanged from yesterday at 1.9. 2. Volume overload. Diuresing well on his own currently. 3. Hypernatremia. Corrected nicely with D5W + flushes. Drain output way down. Continue flushes. 4. Debility. Work with PT/OT. Plan: 04/07/16 11:22 04/08/16 12:23 Subjective: Just stood with PT. No complaints. Objective: Vital Signs Temp Pulse Resp BP Pulse Ox 36.9 C 88 12 120/74 93 04/08/16 07:47 04/08/16 09:59 04/08/16 09:59 04/08/16 07:47 04/08/16 09:59 Laboratory Results 04/08/16 05:05 04/08/16 05:05 04/07/16 04/08/16 04/09/16 05:59 05:59 05:59 Intake Total 5108 2852 729 Output Total 3355 3505 47 Balance 1753 -653 682 PT 16.9 SEC (12.0-15.0) H 03/22/16 17:15 INR 1.37 (0.83-1.16) H 03/22/16 17:15 In chair, alert, NAD RRR, no m/g/r Coarse/diminished bibasilar breath sounds Abdom distended, soft, nt. 3 CHARLIE drains from R side 2+ LE edema ICD10 Worksheet Patient Problems: Problems Problem Status Diagnosed Hypoxia Acute Pneumonia Acute
[2016-04-08] MEDS ORDERED: MAGNESIUM SULF 2 GM/WATER 50 ML IV ONE (12:26)
--- NOTE | 2016-04-08 14:41 | PCMIDPN ---
Assessment/Plan: Assessment: E coli bacteremia-source likely the biliary tract as a high burden of common bile duct stones and debris were discovered and removed on ERCP. This bacteremia is resolved after completion of 2 weeks of therapy. Patient is status post small bowel rupture and retroperitoneal necrosis secondary to bile leakage. The most recent trip to the operating room seems to have clinically improved things. His white blood cell count is fluctuating around 10,000. Clinically he looks stronger and less toxic. He is continuing to be managed on daptomycin, ertapenem and fluconazole. Plan: 1. Continue intravenous daptomycin, ertapenem and fluconazole. Duration to be determined by the progress of his bowel and bile leaks. 2. Follow clinical course. 04/05/16 17:43 04/05/16 17:58 04/08/16 18:35 Subjective: Patient is sitting up in his hospital chair. He notes no new complaints. Surgical notes read and appreciated. Objective: Daptomycin # 6 Ertapenem # 6 Fluconazole # 26 Vital Signs Temp Pulse Resp BP Pulse Ox 36.6 C 105 H 20 128/84 H 94 04/08/16 13:19 04/08/16 13:19 04/08/16 13:19 04/08/16 13:19 04/08/16 13:19 Laboratory Results 04/08/16 05:05 04/08/16 05:05 04/07/16 04/08/16 04/09/16 05:59 05:59 05:59 Intake Total 510 2852 729 Output Total 3350 3505 47 Balance 1753 -663 682 - Physical Exam General Appearance: WD/WN, alert, no apparent distress, non-toxic Respiratory: lungs clear, normal breath sounds, No respiratory distress Cardiac/Chest: regular rate, rhythm, No tachycardia ICD10 Worksheet Patient Problems: Problems Problem Status Diagnosed Hypoxia Acute Pneumonia Acute
[2016-04-08] MEDS: MELATONIN 3 MG TAB TUBE SCH (20:04)
[2016-04-09] MEDS: IPRATROPIUM/ALBUTEROL 3 ML DEYVIAL IH SCH ×5 (01:18→22:01)
[2016-04-09] MEDS: NYSTATIN SUSP 500000 UNIT/5 ML UDCUP PO SCH ×4 (05:00→21:38)
[2016-04-09] MEDS: HEPARIN 5,000 UNIT/0.5 ML SYR SC SCH ×3 (05:00→21:38)
[2016-04-09 05:51] LABS: ADD DIFF? YES; ADD MORPH? NO; ADD SCAN? NO; ATYPICAL LYMPHOCYTE FLAG 30 (0-99); FRAGMENT RBC FLAG 0 (0-99); HEMATOCRIT 25.7 % (40.0-51.0); HEMOGLOBIN 8.5 g/dL (13.7-17.5); LEFT SHIFT FLG 30 (0-99); LIPEMIA HEMOLYSIS FLAG 80 (0-99); MEAN CELL HEMOGLOBIN CONCENTR. 33.1 g/dL (32.4-36.7); MEAN CELL VOLUME 93.8 fL (81.5-99.8); MEAN PLATELET VOLUME 9.3 fL (8.7-11.7); PLATELET CLUMPS FLAG 20 (0-99); PLATELET COUNT 370 10^3/uL (150-400); RED BLOOD CELL COUNT 2.74 10^6/uL (4.40-6.38); RED CELL DISTRIBUTION WIDTH 16.2 % (11.5-15.2)
[2016-04-09 06:09] LABS: ALBUMIN 2.1 g/dL (3.5-5.0); ANION GAP 8 mEq/L (8-16); CARBON DIOXIDE 26 mEq/l (22-31); CHLORIDE 111 mEq/L (97-110); CREATININE 1.8 mg/dL (0.7-1.3); GLOMERULAR FILTRATION RATE 37; GLUCOSE 104 mg/dL (70-100); POTASSIUM 4.2 mEq/L (3.5-5.2); SODIUM 145 mEq/L (134-144)
[2016-04-09 07:22] LABS: HYPOCHROMIA 1+; PLATELET ESTIMATE ADEQUATE (ADEQ); POLYCHROMASIA 1+
[2016-04-09] MEDS: DIPHENOXYLATE/ATROPINE LOMOTIL 1 TAB TUBE PRN (08:22)
[2016-04-09] MEDS: ACETAMINOPHEN 650 MG/20.3 ML UDCUP TUBE PRN (08:22)
[2016-04-09] MEDS: PANTOPRAZOLE SODIUM 40 MG in NS 100 ML IV SCH ×2 (08:33→21:39)
[2016-04-09] MEDS: ERTAPENEM 0.5 GM in NS 50 ML IV SCH (08:34)
[2016-04-09] MEDS: FLUCONAZOLE/NaCl 100 ML IV SCH (09:34)
--- NOTE | 2016-04-09 10:17 | SOAPPROG ---
SOAP Progress Note Assessment/Plan: Assessment/Plan - 81yo M s/p ex-lap x2 c duodenal repair and washout - VSS, afebrile - WBC up a little today but not markedly so. H&H stable - Perc drain site continues to drain into ostomy appliance, will cont this - All other JPs decreasing each day in drainage and character. #2 which has always looked bilious has slowed significantly which could mean his leak is sealing which was anticipated. Other JPs serosang. - Tube feed formula changes yesterday, having more diarrhea. - If JPs continue dry up over the weekend will plan for CT next week to see if leak has sealed. 03/16/16 13:25 03/18/16 11:00 03/19/16 12:10 03/22/16 10:11 03/22/16 14:17 03/23/16 15:52 03/24/16 10:34 03/25/16 13:54 03/26/16 11:15 03/26/16 11:17 03/29/16 11:06 03/30/16 11:08 04/02/16 10:50 04/03/16 08:40 04/05/16 10:27 04/06/16 10:49 04/08/16 09:26 04/09/16 10:15 Subjective: A little down today but denies belly pain. Wants to eat, wants to get back to his life Objective: Vital Signs Temp Pulse Resp BP Pulse Ox 37.3 C 95 18 131/71 H 91 L 04/09/16 07:29 04/09/16 07:29 04/09/16 07:29 04/09/16 07:29 04/09/16 07:29 Laboratory Results 04/09/16 05:20 04/09/16 05:20 04/08/16 04/09/16 04/10/16 05:59 05:59 05:59 Intake Total 2852 2162 1500 Output Total 0377 0197 30 Balance -653 -505 1470 PT 16.9 SEC (12.0-15.0) H 03/22/16 17:15 INR 1.37 (0.83-1.16) H 03/22/16 17:15 ICD10 Worksheet Patient Problems: Problems Problem Status Diagnosed Hypoxia Acute Pneumonia Acute
--- NOTE | 2016-04-09 10:55 | SOAPPROG ---
SOAP Progress Note Assessment/Plan: Assessment:Plan: ARF on CRF-creatinine improving -likely ATN -concern about possible AIN -abx changed -now on Dapto -on ertapenam -getting better CKD-baseline creatinine 1.2 Edema-into thighs -low albumin at 2.1 -good urine output -expect him to diurese spontaneously Hypernatremia-follow -will try to avoid additional IVF -avoid lasix 04/09/16 10:55 Subjective: up in chair, discouraged Objective: Vital Signs Temp Pulse Resp BP Pulse Ox 37.3 C 95 18 131/71 H 91 L 04/09/16 07:29 04/09/16 07:29 04/09/16 07:29 04/09/16 07:29 04/09/16 07:29 Laboratory Results 04/09/16 05:20 04/09/16 05:20 04/08/16 04/09/16 04/10/16 05:59 05:59 05:59 Intake Total 2852 2162 1500 Output Total 3505 2667 30 Balance -653 -505 1470 PT 16.9 SEC (12.0-15.0) H 03/22/16 17:15 INR 1.37 (0.83-1.16) H 03/22/16 17:15 Physical Exam - Physical Exam General Appearance: alert, mild distress EENT: normal ENT inspection Neck: normal inspection Respiratory: decreased breath sounds (posteriorly) Cardiac/Chest: regular rate, rhythm, No diastolic murmur, No systolic murmur Abdomen: normal bowel sounds, other (feeding tube, ricarda, drains in place) Extremities: swelling (into thighs) ICD10 Worksheet Patient Problems: Problems Problem Status Diagnosed Hypoxia Acute Pneumonia Acute
--- NOTE | 2016-04-09 11:45 | HOSPPROG ---
Hospitalist Progress Note Assessment/Plan: ASSESSMENT/PLAN: 81 yo male who presented with sepsis due to E coli bacteremia, source was retained gall stones. ERCP 03/12/2016 with multiple stones extracted and 2 stents placed. He then developed pancreatitis and suffered duodenal perforation , which was repaired by Dr. Dunbar on 03/16/2016 with omental flap and J tube was placed. He had persistent pain, fevers and leukocytosis and repeat CT showed complex fluid collection in RUQ / retroperitoneum likely secondary to a small bowel/bile leak. A perc drain was placed by IR on 03/23/2016. Culture on this fluid grew enterococcus. Repeat CT 03/29/2016 showed decreased but persistent complex fluid collection in the retroperitoneum and pt was taken back to OR 04/01/2016 for abdominal washout. No leak was identified at that time. He is on tube feeds. # duodenal perforation s/p repair with omental patch - POD #24 # S/P abdominal / retroperitoneal washout and patch repair POD #8. - has 3 CHARLIE drains, still putting out - Perc drain removed, but still some output from drain site - Enterococcus in peritoneal aspirate - Cont Erta (changed from zosyn), Dapto, fluconazole per ID - Cont NPO, tube feeds # Sepsis / E coli bacteremia due to retained gall stones. Repeat BCx's neg x4. - status post ERCP with extraction of stones / stent placement - abx as above # acute kidney injury / ?CKD - Cr improving, suspect hemodynamic related vs ATN vs AIN - Appreciate Renal consult - avoid nephrotoxins - Zosyn stopped - avoid hypotension, flomax held for this reason # anemia - s/p total 4 u prbc's, most recently transfused 04/05 - monitor closely -transfuse PRN # acute hypoxemic respiratory failure - abdominal pain may be contributing to poor inspiratory effort. O2 needs improving, down to 2 LPM # volume overload: 11 kg weight gain post-operatively. - self diuresing. No need for diuretics # hypotension/tachycardia - improved post-operatively # hypernatremia - Resolved after receiving D5W. Slight elevation today, will repeat labs in a.m. # diarrhea - Intermittent, improving # pancreatitis - resolved # severe protein calorie malnutrition: Tolerating tube feeds # BPH/urinary retention - Amado in place, remains due to poor mobility / intermittent diuresis. Started on Flomax. -D/C amado soon -I's/O's -Flomax held to avoid hypotension, may resume soon as BP stabilizing #Generalized Weakness and Deconditioning: PT/OT # Full code # DVT PPLX - SQH PLAN: -Cont NPO -Cont tube feeds -No diuretics -No IVF -Cont PT Subjective: sitting in chair Denies pain. No CP or SOB. Favorable self diuresis Objective: - Physical Exam VS: BP ok, on 2 L Constitutional: no apparent distress Eyes: PERRL Ears, Nose, Mouth, Throat: moist mucous membranes Cardiovascular: regular rate and rhythym Respiratory: no respiratory distress, clear to auscultation, reduced air movement Gastrointestinal: normoactive bowel sounds, other, soft Skin: warm Neurologic: AAOx3 Objective: Vital Signs Temp Pulse Resp BP Pulse Ox 36.8 C 98 16 109/72 93 04/09/16 11:04 04/09/16 11:04 04/09/16 11:04 04/09/16 11:04 04/09/16 11:04 Laboratory Results 04/09/16 05:20 04/09/16 05:20 04/08/16 04/09/16 04/10/16 05:59 05:59 05:59 Intake Total 2852 2162 1500 Output Total 3505 2667 30 Balance -653 -505 1470 PT 16.9 SEC (12.0-15.0) H 03/22/16 17:15 INR 1.37 (0.83-1.16) H 03/22/16 17:15 ICD10 Worksheet Patient Problems: Problems Problem Status Diagnosed Hypoxia Acute Pneumonia Acute
[2016-04-09] MEDS: DAPTOmycin 600 MG in NS 100 ML IV SCH (16:28)
--- NOTE | 2016-04-09 18:37 | HOSPPROG ---
Hospitalist Progress Note Assessment/Plan: Received call from ID that a nurse that was taking care of this patient was diagnosed with influenza. Patient agrees to take tamiflu prophylaxis. Objective: Vital Signs Temp Pulse Resp BP Pulse Ox 36.3 C 103 H 18 111/74 93 04/09/16 15:39 04/09/16 15:39 04/09/16 15:39 04/09/16 15:39 04/09/16 15:39 Laboratory Results 04/09/16 05:20 04/09/16 05:20 04/08/16 04/09/16 04/10/16 05:59 05:59 05:59 Intake Total 2852 2162 1500 Output Total 3505 2667 1015 Balance -653 -505 485 PT 16.9 SEC (12.0-15.0) H 03/22/16 17:15 INR 1.37 (0.83-1.16) H 03/22/16 17:15 ICD10 Worksheet Patient Problems: Problems Problem Status Diagnosed Hypoxia Acute Pneumonia Acute
[2016-04-09] MEDS: OSELTAMIVIR 6 MG/ML UDSYR PO SCH (21:38)
[2016-04-09] MEDS: MELATONIN 3 MG TAB TUBE SCH (21:39)
[2016-04-10] MEDS: IPRATROPIUM/ALBUTEROL 3 ML DEYVIAL IH SCH ×2 (05:30→12:17)
[2016-04-10] MEDS: HEPARIN 5,000 UNIT/0.5 ML SYR SC SCH ×4 (05:40→21:05)
[2016-04-10] MEDS: NYSTATIN SUSP 500000 UNIT/5 ML UDCUP PO SCH ×4 (05:40→20:53)
[2016-04-10 06:07] LABS: ADD DIFF? YES; ADD MORPH? NO; ADD SCAN? NO; ATYPICAL LYMPHOCYTE FLAG 40 (0-99); FRAGMENT RBC FLAG 0 (0-99); HEMOGLOBIN 8.1 g/dL (13.7-17.5); LEFT SHIFT FLG 20 (0-99); LIPEMIA HEMOLYSIS FLAG 80 (0-99); MEAN CELL HEMOGLOBIN 30.5 pg (27.9-34.1); MEAN CELL HEMOGLOBIN CONCENTR. 32.4 g/dL (32.4-36.7); MEAN PLATELET VOLUME 9.8 fL (8.7-11.7); PLATELET CLUMPS FLAG 10 (0-99); PLATELET COUNT 276 10^3/uL (150-400); RED BLOOD CELL COUNT 2.66 10^6/uL (4.40-6.38); RED CELL DISTRIBUTION WIDTH 16.1 % (11.5-15.2)
[2016-04-10 06:26] LABS: ALBUMIN 2.2 g/dL (3.5-5.0); ANION GAP 7 mEq/L (8-16); CALCIUM 7.9 mg/dL (8.5-10.4); CARBON DIOXIDE 26 mEq/l (22-31); CHLORIDE 113 mEq/L (97-110); CREATININE 1.8 mg/dL (0.7-1.3); GLOMERULAR FILTRATION RATE 37; GLUCOSE 112 mg/dL (70-100); POTASSIUM 4.2 mEq/L (3.5-5.2); SODIUM 146 mEq/L (134-144)
[2016-04-10 07:21] LABS: HYPOCHROMIA 1+; PLATELET ESTIMATE ADEQUATE (ADEQ); TOXIC GRANULATION PRESENT; TOXIC VACUOLIZATION PRESENT
--- NOTE | 2016-04-10 08:08 | PCMIDPN ---
Assessment/Plan: 1. Duodenal perforation/peritonitis with most recent washout April 02 for right-sided abscess/retroperitoneal necrosis: On broad-spectrum antibiotics in the form of daptomycin, ertapenem, and fluconazole. Patient is on this regimen given probable AIN associated with Zosyn. This is my 1st time meeting him. Will discuss with my colleagues moving forward duration of antibiotics status post most recent washout April 02. Check CK on daptomycin. I ordered this for tomorrow. Check liver function tests on fluconazole. This was also ordered for tomorrow. 2. Exposure to influenza: Continue Tamiflu prophylactically, dose adjusted for renal insufficiency for 10 days. 3. History of E coli bacteremia: Resolved. Status post 2 weeks of therapy for this which and March 21. Subjective: No significant overnight events. 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 Objective: Daptomycin 600 mg IV Q 48 Ertapenem 500 mg IV daily Fluconazole 200 mg IV daily Antibiotics day 28 (or day 8 status post most recent washout in the operating room on April 02) Tamiflu 30 mg daily day 04/23 T-max 37.6degrees Vital Signs Temp Pulse Resp BP Pulse Ox 37.1 C 98 16 123/70 H 92 04/10/16 04:00 04/10/16 05:30 04/10/16 05:30 04/10/16 04:00 04/10/16 05:30 Laboratory Results 04/10/16 05:38 04/10/16 05:38 04/09/16 04/10/16 04/11/16 05:59 05:59 05:59 Intake Total 2162 2290 Output Total 2667 2140 Balance -505 150 No new microbiology - Physical Exam General Appearance: alert, no apparent distress EENT: pharynx normal, No scleral icterus, No thrush Respiratory: other (Decreased breath sounds bilaterally at the lung bases, clear upper lung simpson) Cardiac/Chest: regular rate, rhythm Extremities: swelling (Bilateral lower extremities), other (PICC line right upper extremity looks fine.) Abdomen: non-tender, soft, other Skin: No rash ICD10 Worksheet Patient Problems: Problems Problem Status Diagnosed Hypoxia Acute Pneumonia Acute
[2016-04-10] MEDS: ACETAMINOPHEN 650 MG/20.3 ML UDCUP TUBE PRN ×2 (08:34→16:46)
[2016-04-10] MEDS: ERTAPENEM 0.5 GM in NS 50 ML IV SCH (08:34)
[2016-04-10] MEDS: OSELTAMIVIR 6 MG/ML UDSYR PO SCH (08:34)
[2016-04-10] MEDS ORDERED: ORAL BALANCE GEL TUBE PO PRN (09:01)
--- NOTE | 2016-04-10 09:12 | SOAPPROG ---
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 Objective: Vital Signs Temp Pulse Resp BP Pulse Ox 37.1 C 103 H 20 106/74 94 04/10/16 08:00 04/10/16 08:00 04/10/16 08:00 04/10/16 08:00 04/10/16 08:00 Laboratory Results 04/10/16 05:38 04/10/16 05:38 04/09/16 04/10/16 04/11/16 05:59 05:59 05:59 Intake Total 2162 2290 Output Total 2667 2140 Balance -505 150 PT 16.9 SEC (12.0-15.0) H 03/22/16 17:15 INR 1.37 (0.83-1.16) H 03/22/16 17:15 Physical Exam - Physical Exam General Appearance: alert, mild distress EENT: normal ENT inspection Neck: normal inspection Respiratory: lungs clear, normal breath sounds, decreased breath sounds (at bases) Cardiac/Chest: regular rate, rhythm Abdomen: normal bowel sounds Extremities: swelling (into thighs) ICD10 Worksheet Patient Problems: Problems Problem Status Diagnosed Hypoxia Acute Pneumonia Acute
[2016-04-10] MEDS: FLUCONAZOLE/NaCl 100 ML IV SCH (09:20)
--- NOTE | 2016-04-10 09:43 | SOAPPROG ---
SOAP Progress Note Assessment/Plan: Assessment/Plan - 81yo M s/p ex-lap x2 c duodenal repair and washout - VSS, afebrile - WBC back down to 10, H&H stable - Abdomen is minimally distended, Incision has some serous drainage but is otherwise c/d/i - JPs continue to slow, #2 has had mininal output over last 24hrs which is reassuring that leak is healing. Other JPs have scant serosang drainage - Tolerating J tube feeds, less diarrhea noted last night - If JPs cont to slow and abdomen remains reassuring will likely swallow next week. No changes in management until then., 03/16/16 13:25 03/18/16 11:00 03/19/16 12:10 03/22/16 10:11 03/22/16 14:17 03/23/16 15:52 03/24/16 10:34 03/25/16 13:54 03/26/16 11:15 03/26/16 11:17 03/29/16 11:06 03/30/16 11:08 04/02/16 10:50 04/03/16 08:40 04/05/16 10:27 04/06/16 10:49 04/08/16 09:26 04/09/16 10:15 04/10/16 09:41 Objective: Vital Signs Temp Pulse Resp BP Pulse Ox 37.1 C 103 H 20 106/74 94 04/10/16 08:00 04/10/16 08:00 04/10/16 08:00 04/10/16 08:00 04/10/16 08:00 Laboratory Results 04/10/16 05:38 04/10/16 05:38 04/09/16 04/10/16 04/11/16 05:59 05:59 05:59 Intake Total 2162 2290 Output Total 2667 2140 Balance -505 150 PT 16.9 SEC (12.0-15.0) H 03/22/16 17:15 INR 1.37 (0.83-1.16) H 03/22/16 17:15 ICD10 Worksheet Patient Problems: Problems Problem Status Diagnosed Hypoxia Acute Pneumonia Acute
[2016-04-10] MEDS: DIPHENOXYLATE/ATROPINE LOMOTIL 1 TAB TUBE PRN (10:30)
[2016-04-10] MEDS: PANTOPRAZOLE SODIUM 40 MG in NS 100 ML IV SCH (10:30)
[2016-04-10] MEDS ORDERED: IPRATROPIUM/ALBUTEROL 3 ML DEYVIAL IH PRN (12:17)
[2016-04-10] MEDS: BIOTENE DRY MOUTH MOUTHWASH 237 ML BTL MM PRN (16:49)
--- NOTE | 2016-04-10 18:33 | HOSPPROG ---
Hospitalist Progress Note Assessment/Plan: Assessment/Plan: 81 y/o male p/w sepsis in setting of E. coli bacteremia, c/b duodenal perforation, acute pancreatitis, ileus # Duodenal perforation. Evidenced by free air on CT, s/p ex lap x [address] Dunbar - continue to monitor drain output - plan to get swallow study to determine if there is any visible e/o extravasation # Sepsis. Evidenced by tachypnea + tachycardia + leukocytosis + infection ( bacteremia), resulting in autonomic dysregulation in setting of infxn - s/p IVF and Abx # E. coli bacteremia and peritonitis. Likely 2/2 choledolithiasis - s/p ERCP 03/12, stones removed, needs repeat in 6 weeks. - initially IV CTX, then broadened s/p duodenal perf - adjusted to ertapenem, dapto, fluconazole - check CPK/liver panel # Ileus. Anticipated post-op, acute, moving bowels regularly - TF continued # Acute pancreatitis. Occurred post-ERCP w/ stone removal - dilaudid via tube # LE edema. Likely 2/2 IVF, dimer elevated, LE US neg 03/11 - cont JIMMY hose - monitor strict I/O, holding Lasix given his acute kidney injury - monitor lytes # Atelectasis. 2/2 immobility and intra-abd perf - cont IS and supp o2 # MILLA. 2/2 hypovolemia and also possible AIN w/ Zosyn, challenging balance to keep volume intra-vascularly - cont holding lasix and allow to naturese - monitor sCr and UOP - appreciate renal consult # Anemia. No signs of GI bleeding or acute blood loss - has + heme stool - holding ASA - PCP is in [place]/ he needs to get f/u with a colonoscopy - no e/o bleeding # GERD. Cont tums and PPI # Hypernatremia. 2/2 poor free water intake - cont free water boluses # BPH. Causing a degree of urinary retention - cont amado per patient request - holding flomax to avoid hypotension # Severe protein calorie malnutrition. Secondary to above, evidenced by ASPEN criteria - appreciate consult by dietary Diet. TF, advanced under the direction General surgery Prophylaxis. High risk patient, heparin subcu Code. Full Disposition. Anticipated discharge uncertain this time, patient has yet to reach clinical stabilization with recent duodenal perforation Subjective: Patient is getting frustrated by his duration of stay Objective: Vital Signs Temp Pulse Resp BP Pulse Ox 37.1 C 98 24 H 120/74 96 04/10/16 15:22 04/10/16 15:22 04/10/16 15:22 04/10/16 15:22 04/10/16 15:22 Laboratory Results 04/10/16 05:38 04/10/16 05:38 04/09/16 04/10/16 04/11/16 05:59 05:59 05:59 Intake Total 2162 2290 1084 Output Total 2667 2140 1030 Balance -505 150 54 PT 16.9 SEC (12.0-15.0) H 03/22/16 17:15 INR 1.37 (0.83-1.16) H 03/22/16 17:15 - Physical Exam Constitutional: no apparent distress, appears nourished, not in pain, chronically ill appearing, uncomfortable Cardiovascular: regular rate and rhythym, no murmur, rub, or gallop, edema (1+ bilateral lower extremity edema), No irregularly irregular, No tachycardia Respiratory: reduced air movement (Right lower base), inspiratory crackles ( Bilateral bases but better air movement than on exams prior), No expiratory wheeze, No bronchial breath sounds Gastrointestinal: normoactive bowel sounds, soft, non-tender abdomen, no palpable masses, other (CHARLIE drains in place as well as feeding tube) Skin: no rashes or abrasions, no fluctuance, no induration, No erythema Neurologic: AAOx3, No facial droop Psychiatric: not anxious, not encephalopathic, flat affect, No agitated ICD10 Worksheet Patient Problems: Problems Problem Status Diagnosed Hypoxia Acute Pneumonia Acute
[2016-04-10] MEDS: MELATONIN 3 MG TAB TUBE SCH ×2 (20:55→21:06)
[2016-04-10] MEDS: LANSOPRAZOLE SUSP 30MG/10ML UDSYR (Adult) TUBE SCH (21:06)
[2016-04-11] MEDS: NYSTATIN SUSP 500000 UNIT/5 ML UDCUP PO SCH ×4 (05:28→21:39)
[2016-04-11] MEDS: HEPARIN 5,000 UNIT/0.5 ML SYR SC SCH ×3 (05:28→21:39)
[2016-04-11 06:17] LABS: ALANINE AMINOTRANSFERASE 43 IU/L (21-72); ALBUMIN 2.1 g/dL (3.5-5.0); ALKALINE PHOSPHATASE 120 IU/L (38-126); ANION GAP 8 mEq/L (8-16); ASPARTATE AMINOTRANSFERASE 30 IU/L (17-59); BILIRUBIN,TOTAL 0.4 mg/dL (0.1-1.4); CALCIUM 7.9 mg/dL (8.5-10.4); CARBON DIOXIDE 28 mEq/l (22-31); CHLORIDE 113 mEq/L (97-110); CREATININE 1.7 mg/dL (0.7-1.3); GLOMERULAR FILTRATION RATE 39; GLUCOSE 111 mg/dL (70-100); MAGNESIUM 1.9 mg/dL (1.6-2.3); POTASSIUM 4.3 mEq/L (3.5-5.2); SODIUM 149 mEq/L (134-144); TOTAL PROTEIN 5.5 g/dL (6.3-8.2)
[2016-04-11 06:21] LABS: ADD DIFF? YES; ADD MORPH? NO; ADD SCAN? NO; ATYPICAL LYMPHOCYTE FLAG 30 (0-99); FRAGMENT RBC FLAG 0 (0-99); HEMATOCRIT 26.7 % (40.0-51.0); HEMOGLOBIN 8.4 g/dL (13.7-17.5); LEFT SHIFT FLG 20 (0-99); LIPEMIA HEMOLYSIS FLAG 80 (0-99); MEAN CELL HEMOGLOBIN 30.5 pg (27.9-34.1); MEAN CELL HEMOGLOBIN CONCENTR. 31.5 g/dL (32.4-36.7); MEAN CELL VOLUME 97.1 fL (81.5-99.8); MEAN PLATELET VOLUME 9.6 fL (8.7-11.7); PLATELET CLUMPS FLAG 10 (0-99); PLATELET COUNT 365 10^3/uL (150-400); RED BLOOD CELL COUNT 2.75 10^6/uL (4.40-6.38); RED CELL DISTRIBUTION WIDTH 16.4 % (11.5-15.2)
[2016-04-11] MEDS ORDERED: SODIUM CL NASAL 45 ML BTL EACHNARE PRN (08:36)
--- NOTE | 2016-04-11 08:36 | PCMIDPN ---
Assessment/Plan: 1. Duodenal perforation/peritonitis with most recent washout April 02 for right-sided abscess/retroperitoneal necrosis: On broad-spectrum antibiotics in the form of daptomycin, ertapenem, and fluconazole. Patient is on this regimen given probable AIN associated with Zosyn. CK within normal limits, LFTs are fine. Multiple drains in place; output slowing. 2. Exposure to influenza: Continue Tamiflu prophylactically, dose adjusted for renal insufficiency for 10 days. Of note, the patient missed his dose last night, so is on day 04/23. 3. History of E coli bacteremia: Resolved. Status post 2 weeks of therapy for this which and March 21. 4. Diarrhea: This seems to be worsening. In the setting of increased frequency and elevated white blood cell count,will obtain stool for C diff toxin. Subjective: Sitting in large puddle of stool. Feels that his nose is quite dry. No significant abdominal discomfort, nausea or vomiting. Diarrhea is getting worse , with increased frequency. Report of the nurse, the patient missed his 2nd dose of Tamiflu last night, as she found the vial of medications sitting in his room. Denies symptoms suggestive of new onset influenza. Objective: Daptomycin 600 mg IV Q 48 hours Ertapenem 500 mg IV daily Fluconazole 200 mg IV daily Antibiotics day 29 (or day 9 status post recent washout April 02) Tamiflu 30 mg daily day 04/23 (the patient missed a dose last night) Vital Signs Temp Pulse Resp BP Pulse Ox 36.9 C 103 H 16 103/68 94 04/11/16 02:53 04/11/16 02:53 04/11/16 02:53 04/11/16 02:53 04/11/16 02:53 Laboratory Results 04/11/16 05:35 04/11/16 05:35 04/10/16 04/11/16 04/12/16 05:59 05:59 05:59 Intake Total 2290 2464 Output Total 2140 1780 Balance 150 684 - Physical Exam General Appearance: other (Sitting on the side of his bed, getting cleaned up.) EENT: other (Dry mucous membranes.) Respiratory: other (Decreased breath sounds right base otherwise clear) Extremities: other (PICC line right upper extremity looks fine. Lower extremity edema 2+ bilaterally) Abdomen: other (Incision with minimal serous drainage from the mid pole. [place] in place. Multiple tubes and drains. Right flank with bag draining liquid stool. ) Skin: No rash ICD10 Worksheet Patient Problems: Problems Problem Status Diagnosed Hypoxia Acute Pneumonia Acute
[2016-04-11] MEDS: ERTAPENEM 0.5 GM in NS 50 ML IV SCH (09:26)
[2016-04-11] MEDS: DIPHENOXYLATE/ATROPINE LOMOTIL 1 TAB TUBE PRN (09:26)
[2016-04-11] MEDS: OSELTAMIVIR 6 MG/ML UDSYR PO SCH (09:27)
[2016-04-11] MEDS: LANSOPRAZOLE SUSP 30MG/10ML UDSYR (Adult) TUBE SCH ×2 (09:27→21:39)
[2016-04-11] MEDS ORDERED: FUROSEMIDE 40 MG/4 ML VIAL IVP ONE (09:39)
--- NOTE | 2016-04-11 09:43 | SOAPPROG ---
SOAP Progress Note Assessment/Plan: Assessment:Plan: ARF on CRF-creatinine improving -down to 1.7 this morning -likely ATN -concern about possible AIN -abx changed -now on Dapto -on ertapenam -getting better CKD-baseline creatinine 1.2 Edema-into thighs -low albumin at 2.1 -good urine output -I expected him to diurese spontaneously, but this is not occurring -I will give him a dose of lasix today -if he does not tolerate this due to changes in BP or renal function, I would add albumin 25% Hypernatremia-no better -will increase water flushes with TF's to 175 Q4 to try to avoid worsening this in the face of diuretic use Dry mouth-biotene and orajel mouth care ordered Pulmonary-I suspect he has increasing pleural effusions -they may need to be tapped if he becomes symptomatic -CXR requested 04/11/16 09:43 Subjective: no changes Objective: Vital Signs Temp Pulse Resp BP Pulse Ox 36.9 C 106 H 18 112/68 94 04/11/16 08:00 04/11/16 08:00 04/11/16 08:00 04/11/16 08:00 04/11/16 08:00 Laboratory Results 04/11/16 05:35 04/11/16 05:35 04/10/16 04/11/16 04/12/16 05:59 05:59 05:59 Intake Total 2290 2464 Output Total 2140 1780 480 Balance 150 684 -480 PT 16.9 SEC (12.0-15.0) H 03/22/16 17:15 INR 1.37 (0.83-1.16) H 03/22/16 17:15 Physical Exam - Physical Exam General Appearance: alert, mild distress EENT: normal ENT inspection Neck: normal inspection Respiratory: decreased breath sounds (2/3 up bilaterally) Cardiac/Chest: regular rate, rhythm Abdomen: normal bowel sounds, distended Extremities: swelling (edema into thighs) ICD10 Worksheet Patient Problems: Problems Problem Status Diagnosed Hypoxia Acute Pneumonia Acute
[2016-04-11] MEDS: ACETAMINOPHEN 650 MG/20.3 ML UDCUP TUBE PRN (10:10)
[2016-04-11 10:13] LABS: PLATELET ESTIMATE ADEQUATE (ADEQ)
[2016-04-11 10:14] LABS: POLYCHROMASIA 1+
[2016-04-11] MEDS: FLUCONAZOLE/NaCl 100 ML IV SCH (10:36)
--- NOTE | 2016-04-11 11:51 | DX ---
Chest, AP and Lateral April 11, 2016 History: Decreased breath sounds. Evaluate pleural effusions. Comparison: April 03, 2016. Findings: NG tube has been removed over the interval. Percutaneous strands are seen in the right uppe r quadrant. PIC line is in stable position. Heart size is mildly enlarged and stable. Poor inspiratory effort. Elevation of the right hemidiaphra gm is stable. Pleural effusion on the right and left appears just slightly diminished. Degenerative c hange is seen in the thoracic spine. Decrease in atelectasis at both lung bases. Impression: There continues to be a poor inspiratory effort, but there is improved aeration with dimi nished atelectasis at both lung bases and slight improvement of small bilateral pleural effusions.
--- NOTE | 2016-04-11 14:08 | SOAPPROG ---
SOAP Progress Note Assessment/Plan: Assessment/Plan - 81yo M s/p ex-lap x2 c duodenal repair and washout - Looking great, JPs have essentially dried up. Midline incision has some serous draiange but he has a lot of peripheral edema - Tolerating tube feeds at goal. Still diarrhea - WBC waxes and wanes between 10-12, clinically he looks good - CT swallow early this week, if no leak will give CLD. 03/16/16 13:25 03/18/16 11:00 03/19/16 12:10 03/22/16 10:11 03/22/16 14:17 03/23/16 15:52 03/24/16 10:34 03/25/16 13:54 03/26/16 11:15 03/26/16 11:17 03/29/16 11:06 03/30/16 11:08 04/02/16 10:50 04/03/16 08:40 04/05/16 10:27 04/06/16 10:49 04/08/16 09:26 04/09/16 10:15 04/10/16 09:41 04/11/16 14:07 Subjective: grumpy Objective: Vital Signs Temp Pulse Resp BP Pulse Ox 36.7 C 98 22 H 117/71 93 04/11/16 12:00 04/11/16 12:00 04/11/16 12:00 04/11/16 12:00 04/11/16 12:00 Laboratory Results 04/11/16 05:35 04/11/16 05:35 04/10/16 04/11/16 04/12/16 05:59 05:59 05:59 Intake Total 2290 2464 190 Output Total 2140 1780 480 Balance 150 684 -290 PT 16.9 SEC (12.0-15.0) H 03/22/16 17:15 INR 1.37 (0.83-1.16) H 03/22/16 17:15 ICD10 Worksheet Patient Problems: Problems Problem Status Diagnosed Hypoxia Acute Pneumonia Acute
--- NOTE | 2016-04-11 14:44 | HOSPPROG ---
Hospitalist Progress Note Assessment/Plan: Assessment/Plan: 81 y/o male p/w sepsis in setting of E. coli bacteremia, c/b duodenal perforation, acute pancreatitis, ileus # Duodenal perforation. Evidenced by free air on CT, s/p ex lap x [address] Dunbar - continue to monitor drain output - d/w Dr. Dunbar, he advises that we can plan to get swallow study tomorrow to determine if there is any visible e/o extravasation - if no extravasation, then will plan on clear liq thereafter # Sepsis. Evidenced by tachypnea + tachycardia + leukocytosis + infection ( bacteremia), resulting in autonomic dysregulation in setting of infxn - s/p IVF and Abx # E. coli bacteremia and peritonitis. Likely 2/2 choledolithiasis - s/p ERCP 03/12, stones removed, needs repeat in 6 weeks. - initially IV CTX, then broadened s/p duodenal perf - adjusted to ertapenem, dapto, fluconazole - check CPK/liver panel # Ileus. Anticipated post-op, acute, moving bowels regularly - TF continued # Acute pancreatitis. Occurred post-ERCP w/ stone removal - dilaudid via tube # LE edema. Likely 2/2 IVF, dimer elevated, LE US neg 03/11 - cont JIMMY hose - monitor strict I/O, holding Lasix given his acute kidney injury - monitor lytes # Atelectasis. 2/2 immobility and intra-abd perf - cont IS and supp o2 # MILLA. 2/2 hypovolemia and also possible AIN w/ Zosyn, challenging balance to keep volume intra-vascularly - cont holding lasix and allow to naturese - monitor sCr and UOP - appreciate renal consult # Anemia. No signs of GI bleeding or acute blood loss - has + heme stool - holding ASA - PCP is in [place]/ he needs to get f/u with a colonoscopy - no e/o bleeding # GERD. Cont tums and PPI # Hypernatremia. 2/2 poor free water intake - cont free water boluses, increase volume q4h # BPH. Causing a degree of urinary retention - cont amado per patient request - holding flomax to avoid hypotension # Severe protein calorie malnutrition. Secondary to above, evidenced by ASPEN criteria - appreciate consult by dietary Diet. TF, advanced under the direction General surgery Prophylaxis. High risk patient, heparin subcu Code. Full Disposition. Anticipated discharge uncertain this time, patient has yet to reach clinical stabilization with recent duodenal perforation Subjective: Patient is feeling discharged about his prolonged severe illness, provided patient with motivational discussion regarding all the progress he has made thus far Objective: Vital Signs Temp Pulse Resp BP Pulse Ox 36.7 C 98 22 H 117/71 93 04/11/16 12:00 04/11/16 12:00 04/11/16 12:00 04/11/16 12:00 04/11/16 12:00 Laboratory Results 04/11/16 05:35 04/11/16 05:35 04/10/16 04/11/16 04/12/16 05:59 05:59 05:59 Intake Total 2290 2464 190 Output Total 2140 1780 480 Balance 150 684 -290 PT 16.9 SEC (12.0-15.0) H 03/22/16 17:15 INR 1.37 (0.83-1.16) H 03/22/16 17:15 - Time Spent With Patient Time Spent with Patient: greater than 35 minutes Time Spent with Patient: Greater than 35 minutes spent on this patients care, greater than 50% of time spent counseling, educating, and coordinating care regarding the above mentioned plan. - Physical Exam Constitutional: no apparent distress, not in pain, chronically ill appearing, No uncomfortable Cardiovascular: systolic murmur (1/6 at the sternum and apex), edema (1+ bilateral lower extremities), No irregularly irregular, No tachycardia Respiratory: reduced air movement (Bilateral bases), inspiratory crackles (Mid posterior segment), No expiratory wheeze, No bronchial breath sounds Gastrointestinal: normoactive bowel sounds, soft, non-tender abdomen, other ( Ostomy on right), No distension Neurologic: AAOx3 (Intermittently tearful, flat affect) Psychiatric: not encephalopathic, thought process linear, other ICD10 Worksheet Patient Problems: Problems Problem Status Diagnosed Hypoxia Acute Pneumonia Acute
[2016-04-11] MEDS: DAPTOmycin 600 MG in NS 100 ML IV SCH (16:09)
[2016-04-11] MEDS: MELATONIN 3 MG TAB TUBE SCH (21:39)
[2016-04-12 05:57] LABS: ADD DIFF? YES; ADD MORPH? NO; ADD SCAN? NO; ATYPICAL LYMPHOCYTE FLAG 10 (0-99); FRAGMENT RBC FLAG 0 (0-99); HEMATOCRIT 28.3 % (40.0-51.0); HEMOGLOBIN 9.2 g/dL (13.7-17.5); LEFT SHIFT FLG 20 (0-99); LIPEMIA HEMOLYSIS FLAG 80 (0-99); MEAN CELL HEMOGLOBIN 31.1 pg (27.9-34.1); MEAN CELL HEMOGLOBIN CONCENTR. 32.5 g/dL (32.4-36.7); MEAN CELL VOLUME 95.6 fL (81.5-99.8); MEAN PLATELET VOLUME 9.5 fL (8.7-11.7); PLATELET CLUMPS FLAG 10 (0-99); PLATELET COUNT 385 10^3/uL (150-400); RED BLOOD CELL COUNT 2.96 10^6/uL (4.40-6.38); RED CELL DISTRIBUTION WIDTH 16.6 % (11.5-15.2)
[2016-04-12 06:04] LABS: ALBUMIN 2.5 g/dL (3.5-5.0); ANION GAP 10 mEq/L (8-16); CALCIUM 8.2 mg/dL (8.5-10.4); CARBON DIOXIDE 27 mEq/l (22-31); CHLORIDE 112 mEq/L (97-110); CREATININE 1.7 mg/dL (0.7-1.3); GLOMERULAR FILTRATION RATE 39; GLUCOSE 112 mg/dL (70-100); MAGNESIUM 1.9 mg/dL (1.6-2.3); POTASSIUM 4.3 mEq/L (3.5-5.2); SODIUM 149 mEq/L (134-144)
[2016-04-12 06:58] LABS: HYPOCHROMIA 1+; PLATELET ESTIMATE ADEQUATE (ADEQ)
[2016-04-12] MEDS: HEPARIN 5,000 UNIT/0.5 ML SYR SC SCH ×3 (07:33→21:55)
[2016-04-12] MEDS: NYSTATIN SUSP 500000 UNIT/5 ML UDCUP PO SCH ×5 (07:34→21:55)
[2016-04-12] MEDS: LANSOPRAZOLE SUSP 30MG/10ML UDSYR (Adult) TUBE SCH (08:08)
[2016-04-12] MEDS: OSELTAMIVIR 6 MG/ML UDSYR PO SCH (08:08)
[2016-04-12] MEDS: DIPHENOXYLATE/ATROPINE LOMOTIL 1 TAB TUBE PRN (08:08)
[2016-04-12] MEDS: ACETAMINOPHEN 650 MG/20.3 ML UDCUP TUBE PRN (08:09)
[2016-04-12] MEDS: ERTAPENEM 1 GM in NS 50 ML IV SCH (08:11)
[2016-04-12] MEDS: FLUCONAZOLE/NaCl 100 ML IV SCH (09:14)
--- NOTE | 2016-04-12 10:26 | SOAPPROG ---
KELLIE Progress Note Assessment/Plan: Assessment/Plan - 81yo M s/p ex-lap x2 c duodenal repair and washout - Continues to look good clinically, JPs have essentially dried up. Tolerating J tube feeds with diarrhea. WBC 14k today? not clear why. Plan for CT scan today with PO contrast to eval residual collection, status of perf. 03/16/16 13:25 03/18/16 11:00 03/19/16 12:10 03/22/16 10:11 03/22/16 14:17 03/23/16 15:52 03/24/16 10:34 03/25/16 13:54 03/26/16 11:15 03/26/16 11:17 03/29/16 11:06 03/30/16 11:08 04/02/16 10:50 04/03/16 08:40 04/05/16 10:27 04/06/16 10:49 04/08/16 09:26 04/09/16 10:15 04/10/16 09:41 04/11/16 14:07 04/12/16 10:25 Objective: Vital Signs Temp Pulse Resp BP Pulse Ox 36.9 C 102 H 20 103/69 94 04/12/16 07:19 04/12/16 07:19 04/12/16 07:19 04/12/16 07:19 04/12/16 07:19 Laboratory Results 04/12/16 05:35 04/12/16 05:35 04/11/16 04/12/16 04/13/16 05:59 05:59 05:59 Intake Total 6556 7369 Output Total 5917 3317 Balance 684 -373 PT 16.9 SEC (12.0-15.0) H 03/22/16 17:15 INR 1.37 (0.83-1.16) H 03/22/16 17:15 ICD10 Worksheet Patient Problems: Problems Problem Status Diagnosed Hypoxia Acute Pneumonia Acute
[2016-04-12] MEDS ORDERED: FUROSEMIDE 40 MG/4 ML VIAL IVP ONE (11:18)
--- NOTE | 2016-04-12 11:22 | SOAPPROG ---
SOAP Progress Note Assessment/Plan: Assessment/Plan: MILLA on CKD III: baseline Cr 1.2. Pt likely had ATN, Cr has improved and is stable today at 1.7. - No need for HD. - Will continue to monitor. - Avoid nephrotoxins. Hypernatremia: Na still 149. - Will increase free water flushes to 150ml q2h. - Will also give a dose of Lasix today. - Will continue to monitor. Edema: will give Lasix 40mg IV x1 today and monitor effect before dosing further. Subjective: No acute events overnight. Pt still NPO, feeling thirsty. He is working with PT, had a walk this am. Objective: Vital Signs Temp Pulse Resp BP Pulse Ox 36.9 C 102 H 20 103/69 94 04/12/16 07:19 04/12/16 07:19 04/12/16 07:19 04/12/16 07:19 04/12/16 07:19 Laboratory Results 04/12/16 05:35 04/12/16 05:35 04/11/16 04/12/16 04/13/16 05:59 05:59 05:59 Intake Total 2464 2775 Output Total 1780 3148 Balance 684 -373 PT 16.9 SEC (12.0-15.0) H 03/22/16 17:15 INR 1.37 (0.83-1.16) H 03/22/16 17:15 General: alert and oriented, no acute distress Eyes: EOMI, PERRL OP: Clear CV: RRR Resp: CTA bilat, nonlabored respirations Abd: Soft, NT Ext: +2 edema BLE Neuro: CN II-XII grossly intact, no asterixis Psych: cooperative, appropriate mood and affect ICD10 Worksheet Patient Problems: Problems Problem Status Diagnosed Hypoxia Acute Pneumonia Acute
--- NOTE | 2016-04-12 12:05 | PCMIDPN ---
Assessment/Plan: Assessment/Plan: * E coli bacteremia due to choledocholithiasis and subsequent duodenal perforation status post repair with intra-abdominal abscess post percutaneous drainage with growth of Enterococcus faecalis and repeat open drainage 04/01/2016 : Overall slow clinical improvement. White blood cell count elevated today at 14,000. Agree with plans for repeat CT scan to assess for any residual fluid collections. Continue daptomycin, ertapenem and fluconazole. * Increased creatinine: Creatinine improved. Few urine eos noted prompting change from Zosyn to daptomycin and ertapenem on 04/03/2016; likely component of ATN as well. 04/12/16 12:01 Subjective: Patient complains of having to drink oral contrast. Up walking earlier. No diarrhea noted today. Objective: Vital Signs Temp Pulse Resp BP Pulse Ox 36.8 C 95 20 112/61 97 04/12/16 11:44 04/12/16 11:44 04/12/16 11:44 04/12/16 11:44 04/12/16 11:44 Laboratory Results 04/12/16 05:35 04/12/16 05:35 04/11/16 04/12/16 04/13/16 05:59 05:59 05:59 Intake Total 2464 2775 Output Total 1780 3148 275 Balance 077 -845 -895 Daptomycin, ertapenem, fluconazole (antibiotic therapy day number 30; day 10 post incision and drainage) Laboratory Tests 04/11/16 05:35 Creatine Kinase 24 - Physical Exam General Appearance: alert, no apparent distress EENT: other (Thick yellow coating on tongue), No scleral icterus Respiratory: lungs clear, No respiratory distress Cardiac/Chest: regular rate, rhythm Abdomen: non-tender, other (Small amount of serous drainage in CHARLIE drains), No distended - Line/s RUE PICC Lines: No drainage, No erythema ICD10 Worksheet Patient Problems: Problems Problem Status Diagnosed Hypoxia Acute Pneumonia Acute
--- NOTE | 2016-04-12 14:29 | HOSPPROG ---
Hospitalist Progress Note Assessment/Plan: Assessment/Plan: 81 y/o male p/w sepsis in setting of E. coli bacteremia, c/b duodenal perforation, acute pancreatitis, ileus # Duodenal perforation. Evidenced by free air on CT, s/p ex lap x [address] Dunbar - continue to monitor drain output - d/w Dr. Dunbar, get swallow study today - if no extravasation, then will plan on clear liq thereafter # Sepsis. Evidenced by tachypnea + tachycardia + leukocytosis + infection ( bacteremia), resulting in autonomic dysregulation in setting of infxn - s/p IVF and Abx # E. coli bacteremia and peritonitis. Likely 2/2 choledolithiasis - s/p ERCP 03/12, stones removed, needs repeat in 6 weeks from original procedure - initially IV CTX, then broadened s/p duodenal perf - cont on ertapenem, dapto, fluconazole - check CPK/liver panel # Ileus. Anticipated post-op, acute, moving bowels regularly - TF continued # Acute pancreatitis. Occurred post-ERCP w/ stone removal - dilaudid via tube # LE edema. Likely 2/2 IVF, dimer elevated, LE US neg 03/11 - cont JIMMY hose - monitor strict I/O - monitor lytes - giving one dose of lasix today # Atelectasis. 2/2 immobility and intra-abd perf - cont IS and supp o2 # MILLA. 2/2 hypovolemia and also possible AIN w/ Zosyn, challenging balance to keep volume intra-vascularly - monitor sCr and UOP - appreciate renal consult # Anemia. No signs of GI bleeding or acute blood loss - has + heme stool - holding ASA - PCP is in [place]/ he needs to get f/u with a colonoscopy - no e/o bleeding # GERD. Cont tums and PPI # Hypernatremia. 2/2 poor free water intake - cont free water boluses, increase to 150ml q2 per Dr. Simpson, and give one dose of lasix today - repeat sNa in AM # BPH. Causing a degree of urinary retention - cont amado per patient request - holding flomax to avoid hypotension # Severe protein calorie malnutrition. Secondary to above, evidenced by ASPEN criteria - appreciate consult by dietary Diet. TF, advanced under the direction General surgery Prophylaxis. High risk patient, heparin subcu Code. Full Disposition. Anticipated discharge uncertain this time, patient has yet to reach clinical stabilization with recent duodenal perforation Subjective: Patient is more optimistic today that he will be able to swallow successfully, counseled patient regarding the overall plan of care regarding the swallow study and eventual initiation of liquids, also contextualizing how sick he has been Objective: Vital Signs Temp Pulse Resp BP Pulse Ox 36.8 C 95 20 112/61 97 04/12/16 11:44 04/12/16 11:44 04/12/16 11:44 04/12/16 11:44 04/12/16 11:44 Laboratory Results 04/12/16 05:35 04/12/16 05:35 04/11/16 04/12/16 04/13/16 05:59 05:59 05:59 Intake Total 2463 2775 Output Total 1783 8619 126 Balance 494 -547 -601 PT 16.9 SEC (12.0-15.0) H 03/22/16 17:15 INR 1.37 (0.83-1.16) H 03/22/16 17:15 - Time Spent With Patient Time Spent with Patient: greater than 35 minutes Time Spent with Patient: Greater than 35 minutes spent on this patients care, greater than 50% of time spent counseling, educating, and coordinating care regarding the above mentioned plan. - Physical Exam Constitutional: not in pain, chronically ill appearing, No uncomfortable Cardiovascular: systolic murmur (106 at the sternum), edema (1 to 2+ bilateral lower extremity), No irregularly irregular, No tachycardia Respiratory: reduced air movement (Bilateral bases), inspiratory crackles ( Faint in mid posterior segment bilateral), No expiratory wheeze, No bronchial breath sounds Gastrointestinal: normoactive bowel sounds, No tenderness Neurologic: AAOx3 Psychiatric: not encephalopathic, thought process linear, flat affect ICD10 Worksheet Patient Problems: Problems Problem Status Diagnosed Hypoxia Acute Pneumonia Acute
[2016-04-12] MEDS: DAPTOmycin 600 MG in NS 100 ML IV SCH (17:34)
--- NOTE | 2016-04-12 18:05 | WOCRNPDOC ---
WOCRN Advanced Assessment Note - Skin Integrity Problem, Advanced Assess Left Buttock Unknown Dressing Type: Open to Air Wound Bed Constitution: Smooth Tissue Wound Edges: Epithelizing Site Measurement - Head-to-Toe Length X Width X Depth (cm): 2.5x1.5x0.1 Skin Integrity Problem Comment: Partial thickness friction injury that is healing. No concerns. Coccyx Pressure Injury Dressing Type: Open to Air Site Measurement - Head-to-Toe Length X Width X Depth (cm): 1x1x0 Pressure Injury Stage: Stage 1 Pressure Injury Present on Admit: No Skin Integrity Problem Comment: No change in pressure injury since previous assessment. Discussed offloading area with patient. Cushion on chair. Asked RNP to remove blanket from top of cushion and only place chux. RN and RNP in room for discussion. Will round again 04/19.
--- NOTE | 2016-04-12 19:31 | CT ---
CT Scan of the Abdomen and Pelvis (Without IV Contrast) Clinical Indications: Duodenal perforation. Drainage output is minimal. Patient has 3 CHARLIE drains. Vanda luate fluid. Comparison: May 02, 2016. Technique: No intravenous contrast was given. Multidetector helical CT imaging is performed from th e diaphragm to the symphysis pubis. Dose reduction techniques were utilized. Findings: Right-sided pleural effusion and lower lobe compressive atelectasis are improved. I am labeling these CHARLIE drains based on their skin entrance site: Lower medial, lower lateral, and upp er lateral. The lower medial drain stops just inferior to the right hepatic lobe, just superior to the right kidn ey, and does not traverse through any fluid. This can be pulled. The lower lateral drain is the longest drain, [a long CHARLIE drain that] terminates at the dome of the he patic lobe. This drain courses down along the right hepatic lobe, partially goes into a right lower q uadrant, infrahepatic collection, and then makes a U-bean sprout grower of the skin. Are their sideholes all al justin this drain? If not, if this drain is pulled down 90% of its length, I suspect it would put out mo re when the sideholes get into the right lower quadrant collection. This collection at this time alberto ures roughly 6.3 x 6 x 12 cm, and is likely complex. Finally, the upper lateral drain parallels that of the lower lateral drain in the majority of its cou rse, eventually terminates along the bottom of the left hepatic lobe, and the midline upper abdomen. This also does not traverse through any fluid, and can be removed. The amount of air that is present in the retroperitoneal fluid collection is significantly improved. There still is a little bit of residual contrast from injection before. There are no new fluid collec tions. Left lung bases remains clear. Small and large bowel are normal. There is no evidence for contrast ex travasation into the abdomen. Patient is postcholecystectomy. Previously there was a perihepatic fluid collection. Now, I don't see that fluid collection, but ther e is an air-fluid level over the anterior aspect of the lower liver that is new. Again, this signific ance is unclear. It is measuring 5.5 x 3.7 cm on today's study. Impression: 1. Improved right pleural effusion and atelectasis/consolidation. 2. Two of the three CHARLIE drains do not traverse through fluid, and can be pulled. Please see above for details. 3. The longest CHARLIE drain that enters the abdomen in the inferior lateral aspect does traverse through the right lower quadrant fluid, which still has some air in its, and some residual fluid. If this enrique in were to be pulled back, I suspect it could drain more out. 4. What looks like a new air-fluid level/abscess cavity just below the left hepatic edge, image #30 o f series 2, that is 5.5 x 3.7 cm. It is unclear whether this is clinically significant. It may repres ent shifting collection from the previous perihepatic collection, and it may also communicate in a st range fashion to the right lower lobe quadrant residual fluid. This fluid may have traveled anterior and superiorly to create this new collection. Attention: This examination does not use radiographic contrast, and as such, provides only a limite d evaluation of the abdomen, pelvis, and retroperitoneum. If there is further clinical suspicion for pathological conditions, a complete CT evaluation of the abdomen and pelvis utilizing intravenous, o ral, and rectal contrast should be considered.
[2016-04-12] MEDS: MELATONIN 3 MG TAB TUBE SCH (21:56)
[2016-04-13] MEDS: NYSTATIN SUSP 500000 UNIT/5 ML UDCUP PO SCH ×4 (04:30→21:13)
[2016-04-13] MEDS: LANSOPRAZOLE SUSP 30MG/10ML UDSYR (Adult) TUBE SCH ×3 (04:30→21:13)
[2016-04-13] MEDS: HEPARIN 5,000 UNIT/0.5 ML SYR SC SCH ×3 (04:30→21:13)
[2016-04-13 05:14] LABS: % IMMATURE GRANULYOCYTES 1.8 % (0.0-1.1); ABSOLUTE IMMATURE GRANULOCYTES 0.25 10^3/uL (0.00-0.10); ADD DIFF? NO; ADD MORPH? NO; ADD SCAN? NO; ATYPICAL LYMPHOCYTE FLAG 20 (0-99); FRAGMENT RBC FLAG 0 (0-99); HEMATOCRIT 28.3 % (40.0-51.0); HEMOGLOBIN 9.1 g/dL (13.7-17.5); LEFT SHIFT FLG 10 (0-99); LIPEMIA HEMOLYSIS FLAG 80 (0-99); MEAN CELL HEMOGLOBIN 31.2 pg (27.9-34.1); MEAN CELL HEMOGLOBIN CONCENTR. 32.2 g/dL (32.4-36.7); MEAN CELL VOLUME 96.9 fL (81.5-99.8); MEAN PLATELET VOLUME 9.4 fL (8.7-11.7); PLATELET CLUMPS FLAG 20 (0-99); PLATELET COUNT 346 10^3/uL (150-400); RED BLOOD CELL COUNT 2.92 10^6/uL (4.40-6.38); RED CELL DISTRIBUTION WIDTH 16.4 % (11.5-15.2)
[2016-04-13 05:21] LABS: ALBUMIN 2.5 g/dL (3.5-5.0); ANION GAP 11 mEq/L (8-16); CALCIUM 8.2 mg/dL (8.5-10.4); CARBON DIOXIDE 26 mEq/l (22-31); CHLORIDE 112 mEq/L (97-110); CREATININE 1.7 mg/dL (0.7-1.3); GLOMERULAR FILTRATION RATE 39; GLUCOSE 107 mg/dL (70-100); MAGNESIUM 1.8 mg/dL (1.6-2.3); POTASSIUM 4.1 mEq/L (3.5-5.2); SODIUM 149 mEq/L (134-144)
[2016-04-13] MEDS: DIPHENOXYLATE/ATROPINE LOMOTIL 1 TAB TUBE PRN (07:59)
[2016-04-13] MEDS: ACETAMINOPHEN 650 MG/20.3 ML UDCUP TUBE PRN (07:59)
[2016-04-13] MEDS: OSELTAMIVIR 6 MG/ML UDSYR PO SCH (07:59)
[2016-04-13] MEDS: ERTAPENEM 1 GM in NS 50 ML IV SCH (08:00)
[2016-04-13] MEDS: ALTEPLASE 2 MG VIAL IVP PRN (08:28)
[2016-04-13] MEDS: BIOTENE DRY MOUTH MOUTHWASH 237 ML BTL MM PRN (08:33)
[2016-04-13] MEDS: FLUCONAZOLE/NaCl 100 ML IV SCH (09:42)
--- NOTE | 2016-04-13 10:39 | SOAPPROG ---
SOAP Progress Note Assessment/Plan: Assessment: 1. MILLA Non oliguric. Peaked at 2.6, now down to 1.7. AIN +/- ATN and hemodynamic issues. Has ongoing LE edema. 2. Hypernatremia Staying at 149. Getting free H2O via tube feeds 150ml q2 (1800mll/day). Surgery assessing when oral fluids can be increased. 3. LE edema Using elastic stockings. Hold lasix for now, redose as needed. Subjective: Improving Objective: Vital Signs Temp Pulse Resp BP Pulse Ox 36.8 C 98 18 105/66 94 04/13/16 07:22 04/13/16 09:05 04/13/16 07:22 04/13/16 09:05 04/13/16 09:05 Laboratory Results 04/13/16 04:55 04/13/16 04:55 04/12/16 04/13/16 04/14/16 05:59 05:59 05:59 Intake Total 2775 Output Total 3148 2390 Balance -373 -2390 PT 16.9 SEC (12.0-15.0) H 03/22/16 17:15 INR 1.37 (0.83-1.16) H 03/22/16 17:15 Physical Exam - Physical Exam General Appearance: no apparent distress Respiratory: lungs clear Cardiac/Chest: regular rate, rhythm Abdomen: other (drains noted) Extremities: pedal edema Neuro/Psych: oriented x 3 ICD10 Worksheet Patient Problems: Problems Problem Status Diagnosed Hypoxia Acute Pneumonia Acute
--- NOTE | 2016-04-13 10:53 | PCMIDPN ---
Assessment/Plan: # DU perf with obvious intra-abdominal spillage and subsequent identification of small leak 03/22 with perihepatic fluid abscess status post IR drainage 03/23 meade-susceptible enterococcus. Went back to the OR 04/02 with right-sided abscess /necrotic fat which was debrided. Testing if still leak today --continue daptomycin, ertapenem, fluconazole for now. Tentatively plan 42 days of therapy # Leukocytosis, sl trend up - not clearly explained by CT findings yesterday --check Cdiff # Acute renal failure: much improved # persistent diarrhea likely due to tube feeds, C diff negative 03/27/2016, will repeat today because of leukocytosis #Meade-S E coli bacteremia, secondary to choledocholithiasis s/p ERCP. 03/09 and 03/21 blood cx demonstrate clearance. s/p 2 weeks of therapy at 03/21/16 Meds, antibiotic therapy day number 31; day 11 post incision and drainage Daptomycin 600 mg IV Q D Ertapenem 1gm IV daily Fluconazole 200 mg IV daily Microbiology 03/21 blood cultures 2 sets: no growth 03/23 abdominal aspirate: 3+ GPCs, amp-S enterococcus 03/09 blood cultures 2 sets negative 03/07 blood cultures 2 sets: E coli Subjective: patient reports terrible diarrhea Objective: Vital Signs Temp Pulse Resp BP Pulse Ox 36.8 C 98 18 105/66 94 04/13/16 07:22 04/13/16 09:05 04/13/16 07:22 04/13/16 09:05 04/13/16 09:05 Laboratory Results 04/13/16 04:55 04/13/16 04:55 04/12/16 04/13/16 04/14/16 05:59 05:59 05:59 Intake Total 2775 Output Total 3141 2390 Balance -373 -2390 - Physical Exam General Appearance: alert, no apparent distress EENT: pale conjunctiva Respiratory: other (decreased bs bases), No accessory muscle use Neck: supple, normal inspection Cardiac/Chest: regular rate, rhythm Extremities: pedal edema Abdomen: non-tender, soft, other (3 CHARLIE drainage with minimal fluid present. No grape juice detected) Neuro/Psych: alert, oriented x 3, depressed affect - Line/s RUE PICC Lines: No drainage, No erythema ICD10 Worksheet Patient Problems: Problems Problem Status Diagnosed Hypoxia Acute Pneumonia Acute
--- NOTE | 2016-04-13 11:16 | SOAPPROG ---
SOAP Progress Note Assessment/Plan: Assessment/Plan - 81yo M s/p ex-lap x2 c duodenal repair and washout - Scan yesterday, ? small leak but clinically not behaving as tho tho there is leak - JPs scant - Grape juice test today, if no pruple in drains will adv to [facility]D. 03/16/16 13:25 03/18/16 11:00 03/19/16 12:10 03/22/16 10:11 03/22/16 14:17 03/23/16 15:52 03/24/16 10:34 03/25/16 13:54 03/26/16 11:15 03/26/16 11:17 03/29/16 11:06 03/30/16 11:08 04/02/16 10:50 04/03/16 08:40 04/05/16 10:27 04/06/16 10:49 04/08/16 09:26 04/09/16 10:15 04/10/16 09:41 04/11/16 14:07 04/12/16 10:25 04/13/16 11:14 Subjective: Affect the same Objective: Vital Signs Temp Pulse Resp BP Pulse Ox 36.8 C 98 18 105/66 94 04/13/16 07:22 04/13/16 09:05 04/13/16 07:22 04/13/16 09:05 04/13/16 09:05 Laboratory Results 04/13/16 04:55 04/13/16 04:55 04/12/16 04/13/16 04/14/16 05:59 05:59 05:59 Intake Total 2775 Output Total 2198 2390 Balance -373 -2390 PT 16.9 SEC (12.0-15.0) H 03/22/16 17:15 INR 1.37 (0.83-1.16) H 03/22/16 17:15 ICD10 Worksheet Patient Problems: Problems Problem Status Diagnosed Hypoxia Acute Pneumonia Acute
[2016-04-13] MEDS: DAPTOmycin 600 MG in NS 100 ML IV SCH (15:21)
--- NOTE | 2016-04-13 17:37 | HOSPPROG ---
Hospitalist Progress Note Assessment/Plan: INTERVAL SUMMARY & DAILY PROGRESS NOTE DATE OF ADMISSION: 03/07/2016 INTERVAL DIAGNOSES 1. Sepsis 2. E coli bacteremia 3. Acute duodenal perforation 4. Anticipated postoperative ileus 5. Acute pancreatitis 6. Acute lower extremity edema 7. Atelectasis 8. Acute kidney injury 9. Anemia 10. Gastroesophageal reflux disease 11. Severe protein calorie malnutrition 12. Acute hypernatremia 13. BPH and acute urinary retention CONSULTATIONS 1. Gastroenterology 2. Infectious disease 3. General surgery by Dr. Dunbar 4. Nephrology PROCEDURES / IMAGING ERCP with biliary stone removal 03/12/2016, exploratory laparotomy with duodenal perforation closure CHIEF COMPLAINT Acute abdominal pain SUBJECTIVE Patient is frustrated and becoming pessimistic about his recovery time HOSPITAL COURSE BY PROBLEM Patient was admitted with E coli bacteremia secondary to coli toe lithiasis, status post ERCP stone removal, complicated by duodenal perforation, requiring exploratory laparotomy surgical repair, complicated by postoperative ileus. Over this interval, patient has had less abd pain, persistent diarrhea, and passed a swallow exam on 04/13, rendering him able to begin a clear liquid diet. The plan is to see how he tolerates a liquid diet, and potentially transition him to SNF thereafter, with regular outpt surgical/swallow reassessments. Assessment/Plan: 81 y/o male p/w sepsis in setting of E. coli bacteremia, c/b duodenal perforation, acute pancreatitis, ileus # Duodenal perforation. Evidenced by free air on CT, s/p ex lap x [address] Dunbar - continue to monitor drain output - d/w Dr. Dunbar, swallow study today w/ grape juice successful, CT swallow from 04/12 did not demonstrate extravasation - plan to carefully adv to clears tomorrow, and monitor for at least 24-48hrs to ensure no rise in WBC, no worsening abd pain, no e/o intolerance # Sepsis. Evidenced by tachypnea + tachycardia + leukocytosis + infection ( bacteremia), resulting in autonomic dysregulation in setting of infxn - s/p IVF and Abx # E. coli bacteremia and peritonitis. Likely 2/2 choledolithiasis - s/p ERCP 03/12, stones removed, needs repeat in 6 weeks from original procedure (should coordinate timing w/ Dr. Dunbar) - initially IV CTX, then broadened s/p duodenal perf - cont on ertapenem, dapto, fluconazole - per ID, will need 42 days of total therapy - get Cdiff PCR given ongoing diarrhea # Ileus. Anticipated post-op, acute, moving bowels regularly - TF continued # Acute pancreatitis. Occurred post-ERCP w/ stone removal - dilaudid via tube # LE edema. Likely 2/2 IVF, dimer elevated, LE US neg 03/11 - cont JIMMY hose - monitor strict I/O - monitor lytes - allowing to naturese, holding further lasix # Atelectasis. 2/2 immobility and intra-abd perf - cont IS and supp o2 # MILLA. 2/2 hypovolemia and also possible AIN w/ Zosyn, challenging balance to keep volume intra-vascularly - monitor sCr and UOP - appreciate renal consult # Anemia. No signs of GI bleeding or acute blood loss - has + heme stool - holding ASA - PCP is in [place]/ he needs to get f/u with a colonoscopy - no e/o bleeding # GERD. Cont tums and PPI # Hypernatremia. 2/2 poor free water intake - cont free water boluses, increased to 150ml q2, sNa stable at 149 - repeat sNa in AM # BPH. Causing a degree of urinary retention - cont amado per patient request - holding flomax to avoid hypotension - rec trial void prior to discharge # Severe protein calorie malnutrition. Secondary to above, evidenced by ASPEN criteria - appreciate consult by dietary Diet. TF, advanced under the direction General surgery Prophylaxis. High risk patient, heparin subcu Code. Full Disposition. Anticipated discharge uncertain this time, patient has yet to reach clinical stabilization, must monitor for 48hrs post-PO diet reintroduction Subjective: patient feeling disheartened, ongoing diarrhea Objective: Vital Signs Temp Pulse Resp BP Pulse Ox 37.1 C 98 19 109/68 96 04/13/16 16:00 04/13/16 16:00 04/13/16 16:00 04/13/16 16:00 04/13/16 16:00 Laboratory Results 04/13/16 04:55 04/13/16 04:55 04/12/16 04/13/16 04/14/16 05:59 05:59 05:59 Intake Total 2775 Output Total 3148 2390 Balance -373 -2390 PT 16.9 SEC (12.0-15.0) H 03/22/16 17:15 INR 1.37 (0.83-1.16) H 03/22/16 17:15 - Time Spent With Patient Time Spent with Patient: greater than 35 minutes Time Spent with Patient: Greater than 35 minutes spent on this patients care, greater than 50% of time spent counseling, educating, and coordinating care regarding the above mentioned plan. - Physical Exam Constitutional: not in pain, chronically ill appearing Cardiovascular: diastolic murmur (systolic and diastolic at base), tachycardia, edema (1+ bilat LE), No irregularly irregular Respiratory: reduced air movement (bilat bases), inspiratory crackles (mid post segs), No expiratory wheeze, No bronchial breath sounds Gastrointestinal: normoactive bowel sounds, other (R side ostomy), No tenderness , No guarding Neurologic: AAOx3 Psychiatric: interacting appropriately, not anxious, not encephalopathic, thought process linear ICD10 Worksheet Patient Problems: Problems Problem Status Diagnosed Hypoxia Acute Pneumonia Acute
[2016-04-13] MEDS: MELATONIN 3 MG TAB TUBE SCH (21:13)
[2016-04-14 03:12] LABS: % IMMATURE GRANULYOCYTES 1.7 % (0.0-1.1); ABSOLUTE IMMATURE GRANULOCYTES 0.22 10^3/uL (0.00-0.10); ADD DIFF? NO; ADD MORPH? NO; ADD SCAN? NO; ATYPICAL LYMPHOCYTE FLAG 30 (0-99); FRAGMENT RBC FLAG 0 (0-99); HEMATOCRIT 27.4 % (40.0-51.0); HEMOGLOBIN 8.6 g/dL (13.7-17.5); LEFT SHIFT FLG 10 (0-99); LIPEMIA HEMOLYSIS FLAG 80 (0-99); MEAN CELL HEMOGLOBIN 30.4 pg (27.9-34.1); MEAN CELL HEMOGLOBIN CONCENTR. 31.4 g/dL (32.4-36.7); MEAN CELL VOLUME 96.8 fL (81.5-99.8); MEAN PLATELET VOLUME 8.9 fL (8.7-11.7); PLATELET CLUMPS FLAG 0 (0-99); PLATELET COUNT 317 10^3/uL (150-400); RED BLOOD CELL COUNT 2.83 10^6/uL (4.40-6.38); RED CELL DISTRIBUTION WIDTH 16.2 % (11.5-15.2)
[2016-04-14 03:26] LABS: ALBUMIN 2.7 g/dL (3.5-5.0); ANION GAP 12 mEq/L (8-16); CALCIUM 8.3 mg/dL (8.5-10.4); CARBON DIOXIDE 24 mEq/l (22-31); CHLORIDE 110 mEq/L (97-110); CREATININE 1.5 mg/dL (0.7-1.3); GLOMERULAR FILTRATION RATE 45; GLUCOSE 120 mg/dL (70-100); MAGNESIUM 1.8 mg/dL (1.6-2.3); SODIUM 146 mEq/L (134-144)
[2016-04-14] MEDS: HEPARIN 5,000 UNIT/0.5 ML SYR SC SCH ×3 (05:26→21:20)
[2016-04-14] MEDS: NYSTATIN SUSP 500000 UNIT/5 ML UDCUP PO SCH ×5 (05:26→21:19)
[2016-04-14] MEDS: LANSOPRAZOLE SUSP 30MG/10ML UDSYR (Adult) TUBE SCH ×2 (07:58→21:20)
[2016-04-14] MEDS: OSELTAMIVIR 6 MG/ML UDSYR PO SCH (07:58)
[2016-04-14] MEDS: ERTAPENEM 1 GM in NS 50 ML IV SCH (07:58)
--- NOTE | 2016-04-14 08:34 | SOAPPROG ---
SOAP Progress Note Assessment/Plan: Assessment: 1. MILLA. Likely ischemic ATN + AIN. Zosyn discontinued. UOP excellent. Creat improving, down to 1.5 today. 2. Volume overload. Should improve with kidneys and increased mobility. Lasix prn. 3. Hypernatremia. Correcting nicely with flushes. Increase po intake when ok with surg. 4. Debility. Work with PT/OT. Plan: 04/07/16 11:22 04/08/16 12:23 04/14/16 08:32 04/14/16 08:32 Subjective: Somewhat depressed and frustrated by slow progress but no specific complaints. Objective: Vital Signs Temp Pulse Resp BP Pulse Ox 36.9 C 94 16 116/80 96 04/14/16 07:45 04/14/16 07:45 04/14/16 07:45 04/14/16 07:45 04/14/16 07:45 Laboratory Results 04/14/16 03:00 04/14/16 03:00 04/13/16 04/14/16 04/15/16 05:59 05:59 05:59 Intake Total 1990 Output Total 2390 1535 Balance -2390 455 PT 16.9 SEC (12.0-15.0) H 03/22/16 17:15 INR 1.37 (0.83-1.16) H 03/22/16 17:15 Tired but awake, alert, in chair RRR, no m/g/r CTAB Abdom soft, nt 2-3+ LE pitting edema ICD10 Worksheet Patient Problems: Problems Problem Status Diagnosed Hypoxia Acute Pneumonia Acute
--- NOTE | 2016-04-14 10:05 | SOAPPROG ---
SOAP Progress Note Assessment/Plan: Assessment: 81 yo male s/p ex lap x 2, duodenal perf repair, debridement of necrotic fat. CT was concerning for small leak but no increase in drains, especially posterior drain since clears initiated. No increased pain per pt but pt not very communicative, frustrated over length of stay, overall course. PE in chair, comfortable Abdomen 2 CHARLIE drains with scant clear drainage, ostomy bag right flank with scant bilious, midline stapled incision clean/dry/no erythema Plan continue close monitoring of clear diet. 04/14/16 10:00 Objective: Vital Signs Temp Pulse Resp BP Pulse Ox 36.9 C 94 16 116/80 96 04/14/16 07:45 04/14/16 07:45 04/14/16 07:45 04/14/16 07:45 04/14/16 07:45 Laboratory Results 04/14/16 03:00 04/14/16 03:00 04/13/16 04/14/16 04/15/16 05:59 05:59 05:59 Intake Total 1990 Output Total 2390 1535 Balance -2390 455 PT 16.9 SEC (12.0-15.0) H 03/22/16 17:15 INR 1.37 (0.83-1.16) H 03/22/16 17:15 ICD10 Worksheet Patient Problems: Problems Problem Status Diagnosed Hypoxia Acute Pneumonia Acute
[2016-04-14] MEDS: FLUCONAZOLE/NaCl 100 ML IV SCH (10:39)
--- NOTE | 2016-04-14 11:20 | PCMIDPN ---
Assessment/Plan: 81 yo male with complicated medical history presenting 5 weeks ago with sepsis due Meade-S E coli bacteremia, secondary to choledocholithiasis s/p ERCP - course complicated by DU perf with obvious intra-abdominal spillage followed by small leak 03/22 following repair and resultant abscess, s/p IR drainage 03/23 meade- susceptible enterococcus. Went back to the OR 04/02 with right-sided abscess/ necrotic fat which was debrided. Now with decreased drain output and no evidence of ongoing leak, so diet advanced to clears yesterday --continue daptomycin (enterococcus), ertapenem + fluconazole for empiric therapy for gastric perf. Tentatively plan 42 days of therapy, 04/24/16 stop date # Leukocytosis, improving, Cdiff negative # Acute renal failure: much improved, Cr 1.5. Zosyn possible contributor to ARF # persistent diarrhea likely due to tube feeds, C diff negative 04/13/2016 #Meade-S E coli bacteremia: 03/09 and 03/21 blood cx demonstrate clearance. s/p 2 weeks of therapy at 03/21/16 Meds, antibiotic therapy day number 32; day 12 post incision and drainage Daptomycin 600 mg IV Q D Ertapenem 1gm IV daily Fluconazole 200 mg IV daily Microbiology 04/13 CDIFF neg 03/21 blood cultures 2 sets: negative 03/23 abdominal aspirate: 3+ GPCs, amp-S enterococcus 03/09 blood cultures 2 sets negative 03/07 blood cultures 2 sets: E coli Subjective: depressed affect no change in symptoms, still with loose BMs Objective: Vital Signs Temp Pulse Resp BP Pulse Ox 36.9 C 94 16 116/80 96 04/14/16 07:45 04/14/16 07:45 04/14/16 07:45 04/14/16 07:45 04/14/16 07:45 Laboratory Results 04/14/16 03:00 04/14/16 03:00 04/13/16 04/14/16 04/15/16 05:59 05:59 05:59 Intake Total 1990 Output Total 2390 1535 Balance -2390 455 Tm 37.1 General Appearance: alert, no apparent distress -ill appearing EENT: pale conjunctiva Respiratory: decreased bs bases-B, No accessory muscle use Neck: supple, normal inspection Cardiac/Chest: regular rate, rhythm Extremities: pedal edema, stable Abdomen: non-tender, soft, feeding tube, 3 CHARLIE drainage with minimal fluid present. No grape juice detected, middle drain with scant bilious fluid) Neuro/Psych: alert, oriented x 3, depressed affect RUE PICC:: No drainage, No erythema ICD10 Worksheet Patient Problems: Problems Problem Status Diagnosed Hypoxia Acute Pneumonia Acute
[2016-04-14] MEDS: ACETAMINOPHEN 650 MG/20.3 ML UDCUP TUBE PRN (12:26)
--- NOTE | 2016-04-14 13:03 | HOSPPROG ---
Hospitalist Progress Note Assessment/Plan: ASSESSMENT/PLAN: # duodenal perforation/peritonitis status post repair with omental patch; follow -up I and D of necrotic abscess - continue dapto (enterococcus in peritoneal aspirate), invanz, fluconazole per ID - clears per surgery # volume overload: improved # diarrhea - likely d/t TF # E coli bacteremia due to choledocholithiasis # sepsis due to E coli bacteremia # anemia # hypernatremia - better with free water flushes # acute kidney injury - much improved, appreciate renal # severe protein calorie malnutrition: Tube feeds # nutrition - TF through J-tube # BPH/urinary retention - - holding Flomax due to hypotension # FCFT # SQH for VTE ppx SUBJECTIVE: Ready to leave the hospital; complains of right-sided abdominal pain OBJECTIVE: Vitals reviewed Comfortable, no acute distress Regular rate and rhythm, no murmurs rubs or gallops No respiratory distress, lungs clear to auscultation bilaterally; no wheezes rales or rhonchi Abdomen with midline incision, J-tube, 3 right-sided drains in place, minimal drainage 1+ bilateral lower extremity edema LABORATORY DATA: Reviewed chart reviewed Objective: Vital Signs Temp Pulse Resp BP Pulse Ox 36.9 C 98 14 116/80 96 04/14/16 07:45 04/14/16 11:43 04/14/16 11:43 04/14/16 07:45 04/14/16 11:43 Laboratory Results 04/14/16 03:00 04/14/16 03:00 04/13/16 04/14/16 04/15/16 05:59 05:59 05:59 Intake Total 1990 Output Total 2390 1535 Balance -2390 455 PT 16.9 SEC (12.0-15.0) H 03/22/16 17:15 INR 1.37 (0.83-1.16) H 03/22/16 17:15 ICD10 Worksheet Patient Problems: Problems Problem Status Diagnosed Hypoxia Acute Pneumonia Acute
[2016-04-14] MEDS: DAPTOmycin 600 MG in NS 100 ML IV SCH (16:06)
[2016-04-14] MEDS: MELATONIN 3 MG TAB TUBE SCH (21:19)
[2016-04-15] MEDS: NYSTATIN SUSP 500000 UNIT/5 ML UDCUP PO SCH ×4 (05:11→20:52)
[2016-04-15] MEDS: HEPARIN 5,000 UNIT/0.5 ML SYR SC SCH ×3 (05:11→20:52)
[2016-04-15 05:34] LABS: ABSOLUTE IMMATURE GRANULOCYTES 0.25 10^3/uL (0.00-0.10); ADD DIFF? NO; ADD MORPH? NO; ADD SCAN? NO; ATYPICAL LYMPHOCYTE FLAG 20 (0-99); FRAGMENT RBC FLAG 0 (0-99); HEMATOCRIT 26.1 % (40.0-51.0); HEMOGLOBIN 8.4 g/dL (13.7-17.5); LEFT SHIFT FLG 10 (0-99); LIPEMIA HEMOLYSIS FLAG 80 (0-99); MEAN CELL HEMOGLOBIN CONCENTR. 32.2 g/dL (32.4-36.7); MEAN CELL VOLUME 96.3 fL (81.5-99.8); MEAN PLATELET VOLUME 9.2 fL (8.7-11.7); PLATELET CLUMPS FLAG 0 (0-99); PLATELET COUNT 300 10^3/uL (150-400); RED BLOOD CELL COUNT 2.71 10^6/uL (4.40-6.38); RED CELL DISTRIBUTION WIDTH 16.5 % (11.5-15.2)
[2016-04-15 06:23] LABS: ALBUMIN 2.3 g/dL (3.5-5.0); ANION GAP 8 mEq/L (8-16); CARBON DIOXIDE 26 mEq/l (22-31); CHLORIDE 109 mEq/L (97-110); CREATININE 1.4 mg/dL (0.7-1.3); GLOMERULAR FILTRATION RATE 49; GLUCOSE 114 mg/dL (70-100); MAGNESIUM 1.6 mg/dL (1.6-2.3); POTASSIUM 4.1 mEq/L (3.5-5.2); SODIUM 143 mEq/L (134-144)
[2016-04-15] MEDS: LANSOPRAZOLE SUSP 30MG/10ML UDSYR (Adult) TUBE SCH ×2 (08:54→20:51)
[2016-04-15] MEDS: ERTAPENEM 1 GM in NS 50 ML IV SCH (08:54)
[2016-04-15] MEDS: OSELTAMIVIR 6 MG/ML UDSYR PO SCH (08:54)
[2016-04-15] MEDS: FLUCONAZOLE/NaCl 100 ML IV SCH (09:26)
--- NOTE | 2016-04-15 09:49 | SOAPPROG ---
SOAP Progress Note Assessment/Plan: Assessment/Plan - 81yo M s/p ex-lap x2 c duodenal repair and washout - Tolerating clears, CHARLIE output still scant. I pulled back the lateral most CHARLIE today and re-attached to skin - Will likely d/c 2/3 drains tomorrow, but does not appear to be clinically leaking into any of the 3 drains present - Hopefully looking for placement soon 03/16/16 13:25 03/18/16 11:00 03/19/16 12:10 03/22/16 10:11 03/22/16 14:17 03/23/16 15:52 03/24/16 10:34 03/25/16 13:54 03/26/16 11:15 03/26/16 11:17 03/29/16 11:06 03/30/16 11:08 04/02/16 10:50 04/03/16 08:40 04/05/16 10:27 04/06/16 10:49 04/08/16 09:26 04/09/16 10:15 04/10/16 09:41 04/11/16 14:07 04/12/16 10:25 04/13/16 11:14 04/15/16 09:48 Subjective: Tolerating clears Objective: Vital Signs Temp Pulse Resp BP Pulse Ox 37.2 C 96 18 110/65 95 04/15/16 08:00 04/15/16 08:00 04/15/16 08:00 04/15/16 08:00 04/15/16 08:00 Laboratory Results 04/15/16 05:24 04/15/16 05:24 04/14/16 04/15/16 04/16/16 05:59 05:59 05:59 Intake Total 1989 1565 Output Total 9785 7340 Balance 455 -84 PT 16.9 SEC (12.0-15.0) H 03/22/16 17:15 INR 1.37 (0.83-1.16) H 03/22/16 17:15 ICD10 Worksheet Patient Problems: Problems Problem Status Diagnosed Hypoxia Acute Pneumonia Acute
--- NOTE | 2016-04-15 09:53 | SOAPPROG ---
SOAP Progress Note Assessment/Plan: Assessment: 1. MILLA. Likely ischemic ATN + AIN. UOP good. Creat improving, down to 1.4 today. Left card. Should f/u in our office 2-3 wks after d/c. Can choose location depending on rehab facility. Will sign off. Please call back if issues arise. 2. Volume overload. Lasix prn. Will give dose today, see how kidneys tolerate. 3. Hypernatremia. Corrected nicely with flushes. Increase po intake when ok with surg. 4. Debility. Work with PT/OT. Plan: 04/07/16 11:22 04/08/16 12:23 04/14/16 08:32 04/14/16 08:32 04/15/16 09:48 04/15/16 09:50 04/15/16 09:53 Subjective: Frustrated. No new complaints. Objective: Vital Signs Temp Pulse Resp BP Pulse Ox 37.2 C 96 18 110/65 95 04/15/16 08:00 04/15/16 08:00 04/15/16 08:00 04/15/16 08:00 04/15/16 08:00 Laboratory Results 04/15/16 05:24 04/15/16 05:24 04/14/16 04/15/16 04/16/16 05:59 05:59 05:59 Intake Total 1989 1565 Output Total 6 1650 Balance 455 -84 PT 16.9 SEC (12.0-15.0) H 03/22/16 17:15 INR 1.37 (0.83-1.16) H 03/22/16 17:15 In chair. Awake, alert RRR, no m/g/r CTAB Abdom obese, nontender 4+ LE pitting edema ICD10 Worksheet Patient Problems: Problems Problem Status Diagnosed Hypoxia Acute Pneumonia Acute
[2016-04-15] MEDS ORDERED: FUROSEMIDE 40 MG/4 ML VIAL IVP ONE (09:54)
--- NOTE | 2016-04-15 12:35 | HOSPPROG ---
Hospitalist Progress Note Assessment/Plan: ASSESSMENT/PLAN: # duodenal perforation/peritonitis status post repair with omental patch; follow -up I and D of necrotic abscess - continue dapto (enterococcus in peritoneal aspirate), invanz, fluconazole per ID - clears per surgery # E coli bacteremia due to choledocholithiasis - need plan to remove stents at some point, placed 03/12/16 # volume overload: lasix today, follow creatinine # diarrhea - likely d/t TF; c. dif neg # sepsis due to E coli bacteremia # anemia # hypernatremia - resolved # acute kidney injury - much improved, appreciate renal # severe protein calorie malnutrition: Tube feeds # nutrition - TF through J-tube # BPH/urinary retention - - restart flomax toda-, possibly dc amado tomorrow # FCFT # SQH for VTE ppx SUBJECTIVE: annoyed with drains; seen and discussed with his daughter and granddaughter OBJECTIVE: Vitals reviewed Comfortable, no acute distress Regular rate and rhythm, no murmurs rubs or gallops No respiratory distress, lungs clear to auscultation bilaterally; no wheezes rales or rhonchi Abdomen with midline incision, J-tube, 2 right-sided drains in place, minimal drainage 2+ bilateral lower extremity edema Objective: Vital Signs Temp Pulse Resp BP Pulse Ox 37.2 C 96 18 110/65 95 04/15/16 08:00 04/15/16 08:00 04/15/16 08:00 04/15/16 08:00 04/15/16 08:00 Laboratory Results 04/15/16 05:24 04/15/16 05:24 04/14/16 04/15/16 04/16/16 05:59 05:59 05:59 Intake Total 1989 1566 120 Output Total 1535 1650 Balance 455 -84 120 PT 16.9 SEC (12.0-15.0) H 03/22/16 17:15 INR 1.37 (0.83-1.16) H 03/22/16 17:15 - Time Spent With Patient Time Spent with Patient: greater than 35 minutes Time Spent with Patient: Greater than 35 minutes spent on this patients care, greater than 50% of time spent counseling, educating, and coordinating care regarding the above mentioned plan. ICD10 Worksheet Patient Problems: Problems Problem Status Diagnosed Hypoxia Acute Pneumonia Acute
--- NOTE | 2016-04-15 13:33 | PDIAF ---
- Diagnosis Diagnosis: DU perforation, peritonitis, abscess Code Status: Full Code - Medication Management Discharge Medications: Medications to Continue on Transfer Aspirin [Aspirin 81mg (*)] 81 mg PO HS 03/07/16 [Last Taken 03/06/16] Naproxen Na-Diphenhydramin HCl [Aleve Pm Caplet] 1 each PO HS 03/07/16 [Last Taken 03/06/16] Jail Antibiotics: vancomycin 750mg IV daily, ertapenem 1gm IV daily, fluconazole 200mg IV [facility] Antibiotic Stop Date: 04/30/16 Discharge Medications: Refer to the Discharge Home Medication list for PRN reason. PICC Care - Routine: Yes - Orders Weigh Patient: daily - Labs/Radiology BMP Date: 04/21/16 (every Tue, Tuesday) CBC Date: 04/19/16 (Weekly Tuesday) CMP Date: 04/19/16 [place] Date and Time: 04/19/16, 04/21/16,04/28/16 Call or Fax Lab and Imaging Results to: [id number] [facility] - Follow Up Care Current Providers and Referrals: OUT OF STATE,. [Primary Care Provider] - As per Instructions Maegan Tejada MD [Medical Doctor] - 04/27/16 10:00 am
--- NOTE | 2016-04-15 14:10 | PCMIDPN ---
Assessment/Plan: 81 yo male with complicated medical history presenting 5 weeks ago with sepsis due Meade-S E coli bacteremia, secondary to choledocholithiasis s/p ERCP - course complicated by DU perf with obvious intra-abdominal spillage followed by small leak 03/22 following repair and resultant abscess, s/p IR drainage 03/23 meade- susceptible enterococcus. Went back to the OR 04/02 with right-sided abscess/ necrotic fat which was debrided. Slow clinical improvement, assessing appropriate rehab --dc daptomycin now that renal function normalized --start vancomycin 750mg IV daily again carefully for enterococcus, ertapenem + fluconazole for empiric therapy for gastric perf. --Tentatively plan 4 weeks post drainage, 04/30/16 stop date --check vancomycin trough 04/18 in AM # Leukocytosis, stable, Cdiff negative # Acute renal failure: much improved, Cr 1.4, good UOP. ATN +AIN to zosyn # persistent diarrhea likely due to tube feeds, C diff negative 04/13/2016 # Meade-S E coli bacteremia: 03/09 and 03/21 blood cx demonstrate clearance. s/p 2 weeks of therapy at 03/21/16 Meds, antibiotic therapy day number 33; day 13 post incision and drainage Daptomycin 600 mg IV Q D Ertapenem 1gm IV daily Fluconazole 200 mg IV daily Tamiflu for PrEP Microbiology 04/13 CDIFF neg 03/21 blood cultures 2 sets: negative 03/23 abdominal aspirate: 3+ GPCs, amp-S enterococcus 03/09 blood cultures 2 sets negative 03/07 blood cultures 2 sets: E coli Subjective: no specific c/o today Objective: Vital Signs Temp Pulse Resp BP Pulse Ox 37.2 C 96 18 110/65 95 04/15/16 08:00 04/15/16 08:00 04/15/16 08:00 04/15/16 08:00 04/15/16 08:00 Laboratory Results 04/15/16 05:24 04/15/16 05:24 04/14/16 04/15/16 04/16/16 05:59 05:59 05:59 Intake Total 1989 1566 120 Output Total 1535 1650 Balance 455 -84 120 Tm 37.2 General Appearance: alert, no apparent distress -ill appearing EENT: pale conjunctiva Respiratory: No accessory muscle use Neck: supple, normal inspection Extremities: pedal edema, stable Abdomen: non-tender, soft, feeding tube, 2 CHARLIE drainage with minimal fluid present. one drain with bilious/cloudy fluid Neuro/Psych: alert, oriented x 3, depressed affect RUE PICC:: No drainage, No erythema - Time Spent With Patient Time Spent with Patient: greater than 25 minutes Time Spent with Patient: Greater than 25 minutes spent on this patients care, greater than 50% of time spent counseling, educating, and coordinating care regarding the above mentioned plan. ICD10 Worksheet Patient Problems: Problems Problem Status Diagnosed Hypoxia Acute Pneumonia Acute
[2016-04-15] MEDS: MELATONIN 3 MG TAB TUBE SCH (20:52)
[2016-04-16] MEDS: HEPARIN 5,000 UNIT/0.5 ML SYR SC SCH ×3 (05:56→21:19)
[2016-04-16] MEDS: NYSTATIN SUSP 500000 UNIT/5 ML UDCUP PO SCH ×4 (05:56→21:19)
[2016-04-16] MEDS: ERTAPENEM 1 GM in NS 50 ML IV SCH (07:54)
[2016-04-16] MEDS: OSELTAMIVIR 6 MG/ML UDSYR PO SCH (07:58)
[2016-04-16] MEDS: LANSOPRAZOLE SUSP 30MG/10ML UDSYR (Adult) TUBE SCH ×2 (07:59→21:24)
[2016-04-16] MEDS: TAMSULOSIN HCL 0.4 MG CAP PO SCH (08:03)
--- NOTE | 2016-04-16 08:44 | SOAPPROG ---
SOAP Progress Note Assessment/Plan: Assessment/Plan - 81yo M s/p ex-lap x2 c duodenal repair and washout - Continues to progress clinically, I pulled back the lateral CHARLIE yesterday which is in the residual collection, output has been minimal, will ask RN to irrigate with 10cc sterile NS per shift to assist with drainage. - Tolerating J tube feeds, diarrhea resolved - Midline incision c/d/i, J tube site clean - will plan to remove medial CHARLIE given scant output. - Making progress, hopefully look for placement next week. 03/16/16 13:25 03/18/16 11:00 03/19/16 12:10 03/22/16 10:11 03/22/16 14:17 03/23/16 15:52 03/24/16 10:34 03/25/16 13:54 03/26/16 11:15 03/26/16 11:17 03/29/16 11:06 03/30/16 11:08 04/02/16 10:50 04/03/16 08:40 04/05/16 10:27 04/06/16 10:49 04/08/16 09:26 04/09/16 10:15 04/10/16 09:41 04/11/16 14:07 04/12/16 10:25 04/13/16 11:14 04/15/16 09:48 04/16/16 08:41 Subjective: Had a rough night, but diarrhea resolved. Objective: Vital Signs Temp Pulse Resp BP Pulse Ox 36.7 C 84 18 107/64 96 04/16/16 07:51 04/16/16 07:51 04/16/16 07:51 04/16/16 07:51 04/16/16 07:51 Laboratory Results 04/15/16 05:24 04/15/16 05:24 04/15/16 04/16/16 04/17/16 05:59 05:59 05:59 Intake Total 1566 2240 Output Total 1650 4365 Balance -84 -535 PT 16.9 SEC (12.0-15.0) H 03/22/16 17:15 INR 1.37 (0.83-1.16) H 03/22/16 17:15 ICD10 Worksheet Patient Problems: Problems Problem Status Diagnosed Hypoxia Acute Pneumonia Acute
[2016-04-16] MEDS: VANCOMYCIN 750 MG in D5W 150 ML IV SCH (09:21)
--- NOTE | 2016-04-16 10:15 | HOSPPROG ---
Hospitalist Progress Note Assessment/Plan: ASSESSMENT/PLAN: # duodenal perforation/peritonitis status post repair with omental patch; follow -up I and D of necrotic abscess - daptomycin dc'd, vancomycin restarted to cover Enterococcus - invanz, fluconazole per ID - tentative stop date 04/30/16 - clears per surgery # E coli bacteremia due to choledocholithiasis - stents placed 03/12/2016; plan to DC approximately 6-8 weeks post placement # volume overload: Received Lasix yesterday, need renal function before re- dosing today # diarrhea - likely d/t TF; c. dif neg # sepsis due to E coli bacteremia # anemia # hypernatremia - resolved # acute kidney injury - much improved, renal signed off # severe protein calorie malnutrition: Tube feeds # nutrition - TF through J-tube # BPH/urinary retention - restart flomax today, possibly dc [place] tomorrow # possible influenza exposure - prophylactic Tamiflu # FCFT # SQH for VTE ppx # dispo - looking at early next week to [facility] if everything goes well SUBJECTIVE: Seen with daughter and granddaughter No complaints today Discussed with Dr. Dunbar OBJECTIVE: Vitals reviewed Comfortable, no acute distress Regular rate and rhythm, no murmurs rubs or gallops No respiratory distress, lungs clear to auscultation bilaterally; no wheezes rales or rhonchi Abdomen with midline incision, J-tube, 2 right-sided drains in place, minimal drainage 2+ bilateral lower extremity edema Objective: Vital Signs Temp Pulse Resp BP Pulse Ox 36.7 C 84 18 107/64 96 04/16/16 07:51 04/16/16 07:51 04/16/16 07:51 04/16/16 07:51 04/16/16 07:51 Laboratory Results 04/15/16 05:24 04/15/16 05:24 04/15/16 04/16/16 04/17/16 05:59 05:59 05:59 Intake Total 1566 2240 Output Total 1650 2775 Balance -84 -535 PT 16.9 SEC (12.0-15.0) H 03/22/16 17:15 INR 1.37 (0.83-1.16) H 03/22/16 17:15 ICD10 Worksheet Patient Problems: Problems Problem Status Diagnosed Hypoxia Acute Pneumonia Acute
[2016-04-16 11:11] LABS: % IMMATURE GRANULYOCYTES 1.1 % (0.0-1.1); ABSOLUTE IMMATURE GRANULOCYTES 0.12 10^3/uL (0.00-0.10); ADD DIFF? NO; ADD MORPH? NO; ADD SCAN? NO; ATYPICAL LYMPHOCYTE FLAG 10 (0-99); FRAGMENT RBC FLAG 0 (0-99); HEMATOCRIT 24.8 % (40.0-51.0); LEFT SHIFT FLG 10 (0-99); LIPEMIA HEMOLYSIS FLAG 80 (0-99); MEAN CELL HEMOGLOBIN 30.5 pg (27.9-34.1); MEAN CELL HEMOGLOBIN CONCENTR. 32.3 g/dL (32.4-36.7); MEAN CELL VOLUME 94.7 fL (81.5-99.8); PLATELET CLUMPS FLAG 0 (0-99); PLATELET COUNT 282 10^3/uL (150-400); RED BLOOD CELL COUNT 2.62 10^6/uL (4.40-6.38); RED CELL DISTRIBUTION WIDTH 16.5 % (11.5-15.2)
[2016-04-16] MEDS: FLUCONAZOLE/NaCl 100 ML IV SCH (11:20)
[2016-04-16 12:03] LABS: ALBUMIN 2.2 g/dL (3.5-5.0); ANION GAP 10 mEq/L (8-16); CALCIUM 7.8 mg/dL (8.5-10.4); CARBON DIOXIDE 25 mEq/l (22-31); CHLORIDE 107 mEq/L (97-110); CREATININE 1.4 mg/dL (0.7-1.3); GLOMERULAR FILTRATION RATE 49; GLUCOSE 110 mg/dL (70-100); MAGNESIUM 1.5 mg/dL (1.6-2.3); POTASSIUM 3.9 mEq/L (3.5-5.2); SODIUM 142 mEq/L (134-144)
[2016-04-16] MEDS ORDERED: FUROSEMIDE 20 MG/2 ML VIAL IVP ONE (12:12)
[2016-04-16] MEDS: ACETAMINOPHEN 650 MG/20.3 ML UDCUP TUBE PRN ×2 (12:17→21:19)
[2016-04-16 14:46] LABS: ANION GAP 10 mEq/L (8-16); CALCIUM 8.1 mg/dL (8.5-10.4); CARBON DIOXIDE 24 mEq/l (22-31); CHLORIDE 108 mEq/L (97-110); CREATININE 1.4 mg/dL (0.7-1.3); GLOMERULAR FILTRATION RATE 49; GLUCOSE 113 mg/dL (70-100); POTASSIUM 3.9 mEq/L (3.5-5.2); SODIUM 142 mEq/L (134-144)
--- NOTE | 2016-04-16 17:02 | PCMIDPN ---
Assessment/Plan: Assessment: E coli bacteremia-source likely the biliary tract as a high burden of common bile duct stones and debris were discovered and removed on ERCP. This bacteremia is resolved after completion of 2 weeks of therapy. Patient is status post small bowel rupture and retroperitoneal necrosis secondary to bile leakage. Patient is making slow continued improvement. He continues on ertapenem, fluconazole and vancomycin (recently switched from daptomycin secondary to cost issues upon discharge). Duration has been determined to be 4 weeks from final debridement and drainage. Stop date 2016. Long discussion with family regarding placement and rehabilitation issues. Plan: 1. Continue intravenous vancomycin, ertapenem and fluconazole. Stop date 2016. 2. Follow clinical course. 04/16/16 18:18 Subjective: Patient is sitting in his hospital room. He is surrounded by family. Primary concern for the patient family is eminent discharged to rehabilitation facility. [facility] has declined his admission. Objective: Vital Signs Temp Pulse Resp BP Pulse Ox 36.9 C 96 18 108/65 95 04/16/16 16:00 04/16/16 16:00 04/16/16 16:00 04/16/16 16:00 04/16/16 16:00 Laboratory Results 04/16/16 11:00 04/16/16 11:00 04/15/16 04/16/16 04/17/16 05:59 05:59 05:59 Intake Total 1566 2240 Output Total 1650 2095 Balance -84 -535 - Physical Exam General Appearance: WD/WN, alert, no apparent distress, non-toxic Skin: normal color, warm/dry, No rash Neuro/Psych: alert, normal mood/affect, oriented x 3 ICD10 Worksheet Patient Problems: Problems Problem Status Diagnosed Hypoxia Acute Pneumonia Acute
[2016-04-16] MEDS: MELATONIN 3 MG TAB TUBE SCH (21:19)
[2016-04-17] MEDS: HEPARIN 5,000 UNIT/0.5 ML SYR SC SCH ×3 (05:42→20:45)
[2016-04-17] MEDS: NYSTATIN SUSP 500000 UNIT/5 ML UDCUP PO SCH ×2 (05:42→12:45)
[2016-04-17 05:59] LABS: % IMMATURE GRANULYOCYTES 1.6 % (0.0-1.1); ABSOLUTE IMMATURE GRANULOCYTES 0.15 10^3/uL (0.00-0.10); ADD DIFF? NO; ADD MORPH? NO; ADD SCAN? NO; ATYPICAL LYMPHOCYTE FLAG 10 (0-99); FRAGMENT RBC FLAG 0 (0-99); HEMATOCRIT 22.1 % (40.0-51.0); HEMOGLOBIN 7.2 g/dL (13.7-17.5); LEFT SHIFT FLG 10 (0-99); LIPEMIA HEMOLYSIS FLAG 80 (0-99); MEAN CELL HEMOGLOBIN CONCENTR. 32.6 g/dL (32.4-36.7); MEAN CELL VOLUME 95.3 fL (81.5-99.8); MEAN PLATELET VOLUME 9.5 fL (8.7-11.7); PLATELET CLUMPS FLAG 0 (0-99); PLATELET COUNT 268 10^3/uL (150-400); RED BLOOD CELL COUNT 2.32 10^6/uL (4.40-6.38); RED CELL DISTRIBUTION WIDTH 16.6 % (11.5-15.2)
[2016-04-17 06:19] LABS: ANION GAP 9 mEq/L (8-16); CALCIUM 7.9 mg/dL (8.5-10.4); CARBON DIOXIDE 27 mEq/l (22-31); CHLORIDE 108 mEq/L (97-110); CREATININE 1.4 mg/dL (0.7-1.3); GLOMERULAR FILTRATION RATE 49; GLUCOSE 113 mg/dL (70-100); POTASSIUM 3.8 mEq/L (3.5-5.2); SODIUM 144 mEq/L (134-144)
[2016-04-17] MEDS: ERTAPENEM 1 GM in NS 50 ML IV SCH (07:22)
--- NOTE | 2016-04-17 08:32 | SOAPPROG ---
SOAP Progress Note Assessment/Plan: Assessment/Plan - 81yo M s/p ex-lap x2 c duodenal repair and washout - Looks good today, Afebrile. WBC WNL, Hb drifted down to 7.2 today. JPs cont to drain SS fluid, tolerating CLD without issues. Tolerating J tube feeds without untoward diarrhea. - No big changes today, will plan to cont current JPs and flush as needed. Likely remove one more early next week - Looking for d/c to rehab early to mid next week. 03/16/16 13:25 03/18/16 11:00 03/19/16 12:10 03/22/16 10:11 03/22/16 14:17 03/23/16 15:52 03/24/16 10:34 03/25/16 13:54 03/26/16 11:15 03/26/16 11:17 03/29/16 11:06 03/30/16 11:08 04/02/16 10:50 04/03/16 08:40 04/05/16 10:27 04/06/16 10:49 04/08/16 09:26 04/09/16 10:15 04/10/16 09:41 04/11/16 14:07 04/12/16 10:25 04/13/16 11:14 04/15/16 09:48 04/16/16 08:41 04/17/16 08:31 Subjective: Emotional today, but denies pain and feels well Objective: Vital Signs Temp Pulse Resp BP Pulse Ox 37 C 87 18 101/55 L 89 L 04/17/16 08:00 04/17/16 08:00 04/17/16 08:00 04/17/16 08:00 04/17/16 08:00 Laboratory Results 04/17/16 05:50 04/17/16 05:50 04/16/16 04/17/16 04/18/16 05:59 05:59 05:59 Intake Total 2240 1560 Output Total 2775 1430 Balance -535 130 PT 16.9 SEC (12.0-15.0) H 03/22/16 17:15 INR 1.37 (0.83-1.16) H 03/22/16 17:15 ICD10 Worksheet Patient Problems: Problems Problem Status Diagnosed Hypoxia Acute Pneumonia Acute
[2016-04-17] MEDS: VANCOMYCIN 750 MG in D5W 150 ML IV SCH (09:11)
[2016-04-17] MEDS: TAMSULOSIN HCL 0.4 MG CAP PO SCH (09:17)
[2016-04-17] MEDS: OSELTAMIVIR 6 MG/ML UDSYR PO SCH (09:18)
[2016-04-17] MEDS: LANSOPRAZOLE SUSP 30MG/10ML UDSYR (Adult) TUBE SCH ×2 (09:19→20:45)
[2016-04-17] MEDS: ACETAMINOPHEN 650 MG/20.3 ML UDCUP TUBE PRN (10:09)
[2016-04-17] MEDS: FLUCONAZOLE/NaCl 100 ML IV SCH (11:35)
--- NOTE | 2016-04-17 14:15 | PCMIDPN ---
Assessment/Plan: Assessment: E coli bacteremia-source likely the biliary tract as a high burden of common bile duct stones and debris were discovered and removed on ERCP. This bacteremia is resolved after completion of 2 weeks of therapy. Patient is status post small bowel rupture and retroperitoneal necrosis secondary to bile leakage. Patient is making slow continued improvement. He continues on ertapenem, fluconazole and vancomycin (recently switched from daptomycin secondary to cost issues upon discharge). Duration has been determined to be 4 weeks from final debridement and drainage. Stop date 2016. Patient is stable today. Walking in the hallways. Plan: 1. Continue intravenous vancomycin, ertapenem and fluconazole. Stop date 2016. 2. Follow clinical course. Subjective: Patient is walking in the [place] earlier today. No new complaints. Had a drain removed yesterday. Has had some leaking from the drain tract today. Otherwise no issues. Objective: Ertapenem Fluconazole Vancomycin stop date 04/30/2016. Vital Signs Temp Pulse Resp BP Pulse Ox 37 C 87 18 101/55 L 93 04/17/16 08:00 04/17/16 08:00 04/17/16 08:00 04/17/16 08:00 04/17/16 09:13 Laboratory Results 04/17/16 05:50 04/17/16 05:50 04/16/16 04/17/16 04/18/16 05:59 05:59 05:59 Intake Total 2240 1560 Output Total 2775 1430 400 Balance -535 130 -400 - Physical Exam General Appearance: WD/WN, alert, no apparent distress, non-toxic Skin: normal color, warm/dry, No rash Neuro/Psych: alert, normal mood/affect, oriented x 3 ICD10 Worksheet Patient Problems: Problems Problem Status Diagnosed Hypoxia Acute Pneumonia Acute
--- NOTE | 2016-04-17 14:50 | HOSPPROG ---
Hospitalist Progress Note Assessment/Plan: 81-year-old admitted with fatigue and found to have E coli bacteremia. Further evaluation revealed biliary source with multiple common bile duct stones. He underwent ERCP and stent placement. Several days postprocedure he started having more abdominal distention and eventually was diagnosed with a perforation in the duodenum and underwent exploratory lap and repair of perforation with omental patch. He underwent 2nd I and D on 04/01 for abscess. Currently he has [address] # E coli bacteremia secondary to biliary source complicated by sepsis which has since resolved. Status post ERCP with common bile duct stone removal and stent placement complicated by perforation and bile leak * Status post treatment for E coli bacteremia * Stents placed 03/12/2016, plan to DC 6-8 weeks post placement with GI # duodenal perforation status post exploratory lap and repair of perforation with omental patch. Followed by General surgery. Follow-up I&D on 04/[address] Dunbar * On Vanco Invanz and fluconazole with stop date of 04/30/2016 * Patient can take in clears as well as tube feeds per J-tube # fluid overload, continue to monitor oxygen needs # pancreatitis status post ERCP. Resolved # postop ileus resolved # severe protein calorie malnutrition secondary to above * Continue on tube feeds # acute on chronic kidney disease with a history of BPH creatinine 1.4 today will follow # anemia, will transfuse for hemoglobin less than 7. No obvious site of ongoing bleeding noted # BPH/urinary retention on Flomax, still has Amado in place. # hypernatremia, resolved # possible influenza exposure - prophylactic Tamiflu # FCFT # SQH for VTE ppx # dispo - looking at early next week to [facility] if everything goes well Subjective: Patient chart reviewed. No specific complaints today reviewed case with Dr. Silverman Objective: Vital Signs Temp Pulse Resp BP Pulse Ox 37 C 87 18 101/55 L 93 04/17/16 08:00 04/17/16 08:00 04/17/16 08:00 04/17/16 08:00 04/17/16 09:13 Laboratory Results 04/17/16 05:50 04/17/16 05:50 04/16/16 04/17/16 04/18/16 05:59 05:59 05:59 Intake Total 2240 1560 Output Total 2775 1430 400 Balance -535 130 -400 PT 16.9 SEC (12.0-15.0) H 03/22/16 17:15 INR 1.37 (0.83-1.16) H 03/22/16 17:15 - Physical Exam Constitutional: chronically ill appearing, uncomfortable Eyes: PERRL, EOMI Ears, Nose, Mouth, Throat: moist mucous membranes, other (Tongue is discolored and dark and but no obvious to yeast in mouth) Cardiovascular: regular rate and rhythym, no murmur, rub, or gallop, edema Respiratory: no respiratory distress, clear to auscultation Gastrointestinal: normoactive bowel sounds, other (J tube, [address]) Genitourinary: amado in urethra Skin: warm, No normal color (Pale) Musculoskeletal: no joint effusions Neurologic: AAOx3 Psychiatric: interacting appropriately, depressed ICD10 Worksheet Patient Problems: Problems Problem Status Diagnosed Hypoxia Acute Pneumonia Acute
[2016-04-17] MEDS: MELATONIN 3 MG TAB TUBE SCH (20:45)
[2016-04-18] MEDS: HEPARIN 5,000 UNIT/0.5 ML SYR SC SCH ×3 (05:14→21:56)
[2016-04-18 05:39] LABS: % IMMATURE GRANULYOCYTES 1.4 % (0.0-1.1); ABSOLUTE IMMATURE GRANULOCYTES 0.13 10^3/uL (0.00-0.10); ADD DIFF? NO; ADD MORPH? NO; ADD SCAN? NO; ATYPICAL LYMPHOCYTE FLAG 20 (0-99); FRAGMENT RBC FLAG 0 (0-99); HEMATOCRIT 22.8 % (40.0-51.0); HEMOGLOBIN 7.5 g/dL (13.7-17.5); LEFT SHIFT FLG 10 (0-99); LIPEMIA HEMOLYSIS FLAG 80 (0-99); MEAN CELL HEMOGLOBIN 31.5 pg (27.9-34.1); MEAN CELL HEMOGLOBIN CONCENTR. 32.9 g/dL (32.4-36.7); MEAN CELL VOLUME 95.8 fL (81.5-99.8); MEAN PLATELET VOLUME 9.5 fL (8.7-11.7); PLATELET CLUMPS FLAG 0 (0-99); PLATELET COUNT 284 10^3/uL (150-400); RED BLOOD CELL COUNT 2.38 10^6/uL (4.40-6.38); RED CELL DISTRIBUTION WIDTH 16.8 % (11.5-15.2)
[2016-04-18 06:15] LABS: ANION GAP 9 mEq/L (8-16); CALCIUM 7.9 mg/dL (8.5-10.4); CARBON DIOXIDE 26 mEq/l (22-31); CHLORIDE 107 mEq/L (97-110); CREATININE 1.4 mg/dL (0.7-1.3); GLOMERULAR FILTRATION RATE 49; GLUCOSE 95 mg/dL (70-100); POTASSIUM 3.9 mEq/L (3.5-5.2); SODIUM 142 mEq/L (134-144)
[2016-04-18] MEDS: OSELTAMIVIR 6 MG/ML UDSYR PO SCH (07:44)
[2016-04-18] MEDS: LANSOPRAZOLE SUSP 30MG/10ML UDSYR (Adult) TUBE SCH ×2 (07:45→21:03)
[2016-04-18] MEDS: TAMSULOSIN HCL 0.4 MG CAP PO SCH (07:46)
[2016-04-18] MEDS: ERTAPENEM 1 GM in NS 50 ML IV SCH (07:47)
[2016-04-18] MEDS: VANCOMYCIN 750 MG in D5W 150 ML IV SCH (09:47)
[2016-04-18] MEDS: FLUCONAZOLE/NaCl 100 ML IV SCH (11:43)
--- NOTE | 2016-04-18 12:12 | HOSPPROG ---
Hospitalist Progress Note Assessment/Plan: 81-year-old admitted with fatigue and found to have E coli bacteremia. Further evaluation revealed biliary source with multiple common bile duct stones. He underwent ERCP and stent placement. Several days postprocedure he started having more abdominal distention and eventually was diagnosed with a perforation in the duodenum and underwent exploratory lap and repair of perforation with omental patch. He underwent 2nd I and D on 04/01 for abscess. Currently he has [address] # E coli bacteremia secondary to biliary source complicated by sepsis which has since resolved. Status post ERCP with common bile duct stone removal and stent placement complicated by perforation and bile leak * Status post treatment for E coli bacteremia * Stents placed 03/12/2016, plan to DC 6-8 weeks post placement with GI # duodenal perforation status post exploratory lap and repair of perforation with omental patch. Followed by General surgery. Follow-up I&D on 04/[address] Dunbar * On Vanco Invanz and fluconazole with stop date of 04/30/2016 * Patient can take in clears as well as tube feeds per J-tube * # fluid overload, continue to monitor oxygen needs # pancreatitis status post ERCP. Resolved # Diarrhea, soft stool, likely from TF, follow. Has had neg c.diff # postop ileus resolved # severe protein calorie malnutrition secondary to above * Continue on tube feeds # acute on chronic kidney disease with a history of BPH creatinine 1.4 today will follow # anemia, will transfuse for hemoglobin less than 7. No obvious site of ongoing bleeding noted # BPH/urinary retention on Flomax, still has Wesley in place. # hypernatremia, resolved # possible influenza exposure - prophylactic Tamiflu # FCFT # SQH for VTE ppx # dispo - looking at early next week to [facility] if everything goes well Subjective: not much change Objective: Vital Signs Temp Pulse Resp BP Pulse Ox 37 C 98 18 110/66 93 04/18/16 08:07 04/18/16 08:07 04/18/16 08:07 04/18/16 08:07 04/18/16 08:07 Laboratory Results 04/18/16 05:20 04/18/16 05:20 04/17/16 04/18/16 04/19/16 05:59 05:59 05:59 Intake Total 1560 240 Output Total 1430 695 Balance 130 -455 PT 16.9 SEC (12.0-15.0) H 03/22/16 17:15 INR 1.37 (0.83-1.16) H 03/22/16 17:15 - Physical Exam Constitutional: no apparent distress, chronically ill appearing Cardiovascular: regular rate and rhythym, no murmur, rub, or gallop Respiratory: no respiratory distress, reduced air movement Gastrointestinal: normoactive bowel sounds, soft, non-tender abdomen, other (J tube 2 drains and incision) Psychiatric: interacting appropriately ICD10 Worksheet Patient Problems: Problems Problem Status Diagnosed Hypoxia Acute Pneumonia Acute
--- NOTE | 2016-04-18 18:50 | SOAPPROG ---
SOAP Progress Note Assessment/Plan: Assessment: SP DUODENAL PERF/ MINIMAL NG OUT/ 80CC CHARLIE DRAINAGE/ ABD SOFT/ WOUND OK/ AFEBRILE Plan: CONTINUE NPO/ CONTINUE TUBE FEEDS 03/17/16 09:17 04/04/16 13:30 AFEBRILE/ WOUNDS OK/ DRAINAGE MODERATE/ HCT 22/ WBC 11K/ CO GAS DISCOMFORT 04/18/16 18:45 AFEBRILE/ WOUNDS OK/ ANEMIC WITH HCT 23/ MODERATE MUCOUSY DRAINAGE AROUND DRAIN SITE WHILE DRAINAGE IS DOWN/ OVERALL IMPROVING/ PLAN DRAIN STUDY TO RO FISTULA Objective: Vital Signs Temp Pulse Resp BP Pulse Ox 36.8 C 97 18 121/74 H 95 04/18/16 15:23 04/18/16 15:23 04/18/16 15:23 04/18/16 15:23 04/18/16 15:23 Laboratory Results 04/18/16 05:20 04/18/16 05:20 04/17/16 04/18/16 04/19/16 05:59 05:59 05:59 Intake Total 1560 240 360 Output Total 1430 695 15 Balance 130 -455 345 PT 16.9 SEC (12.0-15.0) H 03/22/16 17:15 INR 1.37 (0.83-1.16) H 03/22/16 17:15 ICD10 Worksheet Patient Problems: Problems Problem Status Diagnosed Hypoxia Acute Pneumonia Acute
[2016-04-18] MEDS: MELATONIN 3 MG TAB TUBE SCH (21:02)
[2016-04-18] MEDS: ACETAMINOPHEN 650 MG/20.3 ML UDCUP TUBE PRN (21:02)
[2016-04-19] MEDS: ACETAMINOPHEN 650 MG/20.3 ML UDCUP TUBE PRN (02:47)
[2016-04-19] MEDS: HEPARIN 5,000 UNIT/0.5 ML SYR SC SCH ×3 (04:24→21:01)
[2016-04-19] MEDS: LANSOPRAZOLE SUSP 30MG/10ML UDSYR (Adult) TUBE SCH (08:37)
[2016-04-19] MEDS: ERTAPENEM 1 GM in NS 50 ML IV SCH (08:38)
[2016-04-19] MEDS: TAMSULOSIN HCL 0.4 MG CAP PO SCH (09:01)
--- NOTE | 2016-04-19 09:41 | SOAPPROG ---
SOAP Progress Note Assessment/Plan: Assessment/Plan - 81yo M s/p ex-lap x2 c duodenal repair and washout - Overall, looks good. Abd remains soft. 2 JPs with appropriate output, will remove anterior CHARLIE today and leave just the single drain in the R retroperitoneum - tolerating TFs and CLD - Would be ok with placement in next day or so. Will go with drain and J tube. Will see me next week for formal swallow and determination of diet advancement. - 03/16/16 13:25 03/18/16 11:00 03/19/16 12:10 03/22/16 10:11 03/22/16 14:17 03/23/16 15:52 03/24/16 10:34 03/25/16 13:54 03/26/16 11:15 03/26/16 11:17 03/29/16 11:06 03/30/16 11:08 04/02/16 10:50 04/03/16 08:40 04/05/16 10:27 04/06/16 10:49 04/08/16 09:26 04/09/16 10:15 04/10/16 09:41 04/11/16 14:07 04/12/16 10:25 04/13/16 11:14 04/15/16 09:48 04/16/16 08:41 04/17/16 08:31 04/19/16 09:38 Subjective: Denies pain. Tolerating clears. Objective: Vital Signs Temp Pulse Resp BP Pulse Ox 37.1 C 92 20 114/70 93 04/19/16 07:52 04/19/16 07:52 04/19/16 07:52 04/19/16 07:52 04/19/16 07:52 Laboratory Results 04/18/16 05:20 04/18/16 05:20 04/18/16 04/19/16 04/20/16 05:59 05:59 05:59 Intake Total 240 2390 Output Total 695 45 Balance -455 2345 PT 16.9 SEC (12.0-15.0) H 03/22/16 17:15 INR 1.37 (0.83-1.16) H 03/22/16 17:15 ICD10 Worksheet Patient Problems: Problems Problem Status Diagnosed Hypoxia Acute Pneumonia Acute
[2016-04-19] MEDS: FLUCONAZOLE/NaCl 100 ML IV SCH (09:48)
[2016-04-19] MEDS ORDERED: DIPHENOXYLATE/ATROPINE LOMOTIL 1 TAB PO PRN (09:53)
[2016-04-19] MEDS ORDERED: MAG HYDROX/AL HYDROX/SIMETH 30 ML UDCUP PO PRN (09:53)
[2016-04-19] MEDS ORDERED: ACETAMINOPHEN 650 MG/20.3 ML UDCUP PO PRN (09:54)
[2016-04-19] MEDS: VANCOMYCIN 750 MG in D5W 150 ML IV SCH (10:35)
--- NOTE | 2016-04-19 14:31 | HOSPPROG ---
Hospitalist Progress Note Assessment/Plan: 81-year-old admitted with fatigue and found to have E coli bacteremia. Further evaluation revealed biliary source with multiple common bile duct stones. He underwent ERCP and stent placement. Several days postprocedure he started having more abdominal distention and eventually was diagnosed with a perforation in the duodenum and underwent exploratory lap and repair of perforation with omental patch. He underwent 2nd I and D on 04/01 for abscess. Currently he has [address] # E coli bacteremia secondary to biliary source complicated by sepsis which has since resolved. Status post ERCP with common bile duct stone removal and stent placement complicated by perforation and bile leak * Status post treatment for E coli bacteremia * Stents placed 03/12/2016, plan to DC 6-8 weeks post placement with GI # duodenal perforation status post exploratory lap and repair of perforation with omental patch. Followed by General surgery. Follow-up I&D on 04/[address] Dunbar * On Vanco Invanz and fluconazole with stop date of 04/30/2016 * Patient can take in clears as well as tube feeds per J-tube * Will follow up with Dr. Dunbar a week after discharge to discuss advancing his diet and surgical follow-up # fluid overload, stablized. # pancreatitis status post ERCP. Resolved # Diarrhea, soft stool, likely from TF, follow. Has had neg c.diff # postop ileus resolved # severe protein calorie malnutrition secondary to above * Continue on tube feeds # acute on chronic kidney disease with a history of BPH creatinine 1.4 today will follow # anemia, will transfuse for hemoglobin less than 7. No obvious site of ongoing bleeding noted # BPH/urinary retention on Flomax, still has Wesley in place. # hypernatremia, resolved # possible influenza exposure - prophylactic Tamiflu # FCFT # SQH for VTE ppx # dispo - looking at early next week to [facility] if everything goes well Subjective: No specific complaints. Has ongoing discharge from her drain sites with minimal serous fluid in her drains Objective: Vital Signs Temp Pulse Resp BP Pulse Ox 37.1 C 92 20 114/70 93 04/19/16 07:52 04/19/16 07:52 04/19/16 07:52 04/19/16 07:52 04/19/16 07:52 Laboratory Results 04/18/16 05:20 04/18/16 05:20 04/18/16 04/19/16 04/20/16 05:59 05:59 05:59 Intake Total 240 2390 Output Total 695 45 200 Balance -455 2345 -200 PT 16.9 SEC (12.0-15.0) H 03/22/16 17:15 INR 1.37 (0.83-1.16) H 03/22/16 17:15 - Physical Exam Constitutional: chronically ill appearing Ears, Nose, Mouth, Throat: moist mucous membranes Cardiovascular: regular rate and rhythym Respiratory: no respiratory distress, clear to auscultation Psychiatric: interacting appropriately, not anxious ICD10 Worksheet Patient Problems: Problems Problem Status Diagnosed Hypoxia Acute Pneumonia Acute
--- NOTE | 2016-04-19 16:18 | PCMIDPN ---
Assessment/Plan: Assessment/Plan: * E coli bacteremia due to choledocholithiasis and subsequent duodenal perforation status post repair with intra-abdominal abscess post percutaneous drainage with growth of Enterococcus faecalis and repeat open drainage 04/01/2016 : Continues with slow clinical improvement. Drain study ordered by Dr. Salcedo to assess for fistula given persistent leakage around drain site. Plan antibiotic therapy with vancomycin, ertapenem and fluconazole through 04/30/2016. * Increased creatinine: Creatinine improved now at 1.4. Vancomycin trough appropriate. 04/19/16 16:13 Subjective: Patient frustrated by not being able to eat. Continued drainage around 1 drain tube. Objective: Vital Signs Temp Pulse Resp BP Pulse Ox 36.8 C 101 H 20 120/69 95 04/19/16 15:14 04/19/16 15:14 04/19/16 15:14 04/19/16 15:14 04/19/16 15:14 Laboratory Results 04/18/16 05:20 04/18/16 05:20 04/18/16 04/19/16 04/20/16 05:59 05:59 05:59 Intake Total 240 2390 Output Total 695 45 200 Balance -455 2345 -200 Vancomycin/ertapenem/fluconazole - stop date 04/30/2016 Laboratory Tests 04/19/16 09:00 Vancomycin Trough 9.5 - Physical Exam General Appearance: alert, no apparent distress EENT: other (Black coating on tongue), No scleral icterus Respiratory: lungs clear (Anterolaterally) ICD10 Worksheet Patient Problems: Problems Problem Status Diagnosed Hypoxia Acute Pneumonia Acute
--- NOTE | 2016-04-19 16:38 | PCMIDPN ---
Assessment/Plan: Assessment/Plan: * E coli bacteremia due to choledocholithiasis and subsequent duodenal perforation status post repair with intra-abdominal abscess post percutaneous drainage with growth of Enterococcus faecalis and repeat open drainage 04/01/2016 : Continues with slow clinical improvement. Drain study ordered by Dr. Salcedo to assess for fistula given persistent leakage around drain site. Plan antibiotic therapy with vancomycin, ertapenem and fluconazole through 04/30/2016. * Increased creatinine: Creatinine improved now at 1.4. Vancomycin trough appropriate. 04/19/16 16:13 Objective: Vital Signs Temp Pulse Resp BP Pulse Ox 36.8 C 101 H 20 120/69 95 04/19/16 15:14 04/19/16 15:14 04/19/16 15:14 04/19/16 15:14 04/19/16 15:14 Laboratory Results 04/18/16 05:20 04/18/16 05:20 04/18/16 04/19/16 04/20/16 05:59 05:59 05:59 Intake Total 240 2390 Output Total 695 45 200 Balance -455 2345 -200 - Physical Exam General Appearance: alert, no apparent distress EENT: other (Black coating on tongue) Respiratory: lungs clear (Anterolaterally) Abdomen: non-tender, other (Thick brown discharge around 1 drain site), No distended - Line/s RUE PICC Lines: No drainage, No erythema ICD10 Worksheet Patient Problems: Problems Problem Status Diagnosed Hypoxia Acute Pneumonia Acute
[2016-04-19 17:23] LABS: ALBUMIN 2.2 g/dL (3.5-5.0); BILIRUBIN,TOTAL 0.4 mg/dL (0.1-1.4); BILIRUBIN-CONJUGATED 0.4 mg/dL (0.0-0.5); TOTAL PROTEIN 5.2 g/dL (6.3-8.2)
[2016-04-19] MEDS: MELATONIN 3 MG TAB PO SCH (20:48)
[2016-04-19] MEDS: PANTOPRAZOLE SODIUM 40 MG TAB PO SCH (20:48)
[2016-04-20] MEDS: HEPARIN 5,000 UNIT/0.5 ML SYR SC SCH ×3 (04:22→21:25)
[2016-04-20] MEDS: TAMSULOSIN HCL 0.4 MG CAP PO SCH (08:42)
[2016-04-20] MEDS: VANCOMYCIN 750 MG in D5W 150 ML IV SCH (08:42)
[2016-04-20] MEDS: PANTOPRAZOLE SODIUM 40 MG TAB PO SCH ×2 (08:42→21:25)
[2016-04-20] MEDS: ERTAPENEM 1 GM in NS 50 ML IV SCH (08:42)
[2016-04-20] MEDS: FLUCONAZOLE/NaCl 100 ML IV SCH (08:42)
--- NOTE | 2016-04-20 09:49 | SOAPPROG ---
KELLIE Progress Note Assessment/Plan: Assessment/Plan - 81yo M s/p ex-lap x2 c duodenal repair and washout - Continues to look good. JPs with minimal drainage, moreso around the drain the through it. Would like to pull one more drain before d/c but will get drain study prior to just to ensure there isnt a large collection undrained. - If drain study looks good, will d/c and would be ok with d/c to rehab. 03/16/16 13:25 03/18/16 11:00 03/19/16 12:10 03/22/16 10:11 03/22/16 14:17 03/23/16 15:52 03/24/16 10:34 03/25/16 13:54 03/26/16 11:15 03/26/16 11:17 03/29/16 11:06 03/30/16 11:08 04/02/16 10:50 04/03/16 08:40 04/05/16 10:27 04/06/16 10:49 04/08/16 09:26 04/09/16 10:15 04/10/16 09:41 04/11/16 14:07 04/12/16 10:25 04/13/16 11:14 04/15/16 09:48 04/16/16 08:41 04/17/16 08:31 04/19/16 09:38 04/20/16 09:50 04/20/16 09:53 04/20/16 09:59 Subjective: Didnt sleep well overnight. Pain ok. Objective: Vital Signs Temp Pulse Resp BP Pulse Ox 37.1 C 98 18 104/63 94 04/20/16 08:00 04/20/16 08:00 04/20/16 08:00 04/20/16 08:00 04/20/16 08:00 Laboratory Results 04/18/16 05:20 04/18/16 05:20 04/19/16 04/20/16 04/21/16 05:59 05:59 05:59 Intake Total 2390 2567 Output Total 45 435 Balance 2345 2132 PT 16.9 SEC (12.0-15.0) H 03/22/16 17:15 INR 1.37 (0.83-1.16) H 03/22/16 17:15 ICD10 Worksheet Patient Problems: Problems Problem Status Diagnosed Hypoxia Acute Pneumonia Acute
--- NOTE | 2016-04-20 14:25 | CT ---
CT CT Scan of the Abdomen and Pelvis (Without IV Contrast) Clinical Indications: Recently injected contrast into the abdomen. Confirming that none of the contr ast went into the small bowel. Ruling out fistula to small bowel. Technique: No intravenous contrast was given. Multidetector helical CT imaging was performed from t he diaphragm to the symphysis pubis. Dose reduction techniques were utilized. Findings: Indeed, all of the injected contrast remains extraluminal, in the abdominal cavity, coveri ng around the colon, stomach, and IVC. There is still a residual fluid pocket in the right lower quad rant that is unchanged compared to the prior scan. The rest of the study is unchanged. Impression: 1. No fistula to small bowel identified. The new placed drain terminates adjacent to the duodenum. 2. Right lower quadrant fluid is not draining by existing CHARLIE drain. Findings and recommendations discussed with Dr. Manjit Dunbar at 1 p.m. hour, 04/20/2016. Final report concurs with initial preliminary interpretation. Attention: This examination does not use radiographic contrast, and as such, provides only a limite d evaluation of the abdomen, pelvis, and retroperitoneum. If there is further clinical suspicion for pathological conditions, a complete CT evaluation of the abdomen and pelvis utilizing intravenous, o ral, and rectal contrast should be considered.
--- NOTE | 2016-04-20 14:33 | HOSPPROG ---
Hospitalist Progress Note Assessment/Plan: 81-year-old admitted with fatigue and found to have E coli bacteremia. Further evaluation revealed biliary source with multiple common bile duct stones. He underwent ERCP and stent placement. Several days postprocedure he started having more abdominal distention and eventually was diagnosed with a perforation in the duodenum and underwent exploratory lap and repair of perforation with omental patch. He underwent 2nd I and D on 04/01 for abscess. Currently he has [address] He underwent CT scan and evaluation of drain placement this afternoon. No fistula noted after injection of contrast into abdomen. He is leaving now for repeat evaluation of drain placement this afternoon # E coli bacteremia secondary to biliary source complicated by sepsis which has since resolved. Status post ERCP with common bile duct stone removal and stent placement complicated by perforation and bile leak * Status post treatment for E coli bacteremia * Stents placed 03/12/2016, plan to DC 6-8 weeks post placement with GI # duodenal perforation status post exploratory lap and repair of perforation with omental patch. Followed by General surgery. Follow-up I&D on 04/[address] Dunbar * On Vanco Invanz and fluconazole with stop date of 04/30/2016 * Patient can take in clears as well as tube feeds per J-tube * Will follow up with Dr. Dunbar a week after discharge to discuss advancing his diet and surgical follow-up * Stable for discharge soon, Dr. Alanna Wagner would like to remove 1 of his drains prior to discharge the other drain will likely stay in place after discharge. # fluid overload, stablized. # pancreatitis status post ERCP. Resolved # Diarrhea, soft stool, likely from TF, follow. Has had neg c.diff # postop ileus resolved # severe protein calorie malnutrition secondary to above * Continue on tube feeds # acute on chronic kidney disease with a history of BPH creatinine 1.4 today will follow # anemia, will transfuse for hemoglobin less than 7. No obvious site of ongoing bleeding noted # BPH/urinary retention on Flomax, still has Wesley in place. # hypernatremia, resolved # possible influenza exposure - prophylactic Tamiflu # FCFT # SQH for VTE ppx # dispo -patient ready for discharge once okay per surgery. They plan on evaluating the drain this evening and removing it. He can likely be discharged in the morning if everything looks okay. He will be going to [facility] for rehab. Continue his same medications. Follow up with Dr. Alanna carter. Follow up with GI at the end of April for stent removal, after he finishes his antibiotics. Subjective: No new complaints frustrated he has to go back down to Radiology this afternoon Objective: Vital Signs Temp Pulse Resp BP Pulse Ox 37.1 C 98 18 104/63 94 04/20/16 08:00 04/20/16 08:00 04/20/16 08:00 04/20/16 08:00 04/20/16 08:00 Laboratory Results 04/18/16 05:20 04/18/16 05:20 04/19/16 04/20/16 04/21/16 05:59 05:59 05:59 Intake Total 2390 2567 Output Total 45 435 Balance 2345 2132 PT 16.9 SEC (12.0-15.0) H 03/22/16 17:15 INR 1.37 (0.83-1.16) H 03/22/16 17:15 - Physical Exam Constitutional: no apparent distress, chronically ill appearing Cardiovascular: regular rate and rhythym Respiratory: no respiratory distress Gastrointestinal: normoactive bowel sounds, other (J tube, 2 drains lower abdomen.) Psychiatric: interacting appropriately, not anxious ICD10 Worksheet Patient Problems: Problems Problem Status Diagnosed Hypoxia Acute Pneumonia Acute
--- NOTE | 2016-04-20 18:44 | IR ---
Abscess check and drain replacement Indication: After discussion with Dr. Manjit Dunbar, request was made to further evaluate the upper drain. Today's CT scan shows that this drain again traverses through a right lower quadrant fluid co llection that has not been sufficiently drained. Informed consent: Obtained from the patient. Risks and benefits were discussed. Crosscutting Measure: Patient's current list of medications including all known prescriptions, over- the-counters, herbals, and vitamin/mineral/dietary supplements are reviewed. Medications' name, dosa ge, frequency, and route of administration are confirmed. The patient is a non-smoker. Prophylactic Antibiotic: Cefazolin was not ordered and administered for antimicrobial prophylaxis be cause it was not medically necessary. VTE Prophylaxis: There is not an order for VTE prophylaxis to be given within 24 hours of the proced ure end time. VTE prophylaxis was not given because it was not medically necessary. Technique: Patient is placed in supine position. A "timeout" procedure was performed to identify th e correct patient and the correct procedure. 1% Xylocaine was used for local anesthetic. All eleme nts of maximal sterile barrier technique including cap, mask, sterile gown, sterile gloves, large luanne rile sheet, hand hygiene, and 2% chlorhexidine for cutaneous antisepsis, followed. Sutures are cut, and the existing drain was then removed over the Glidewire. A 12 -Irish multi-sideh ole pigtail catheter was advanced into the right lower quadrant iliac region, approximately the regio n based on CT scan of that residual fluid collection. As soon as I removed the pre-existing CHARLIE drain, a copious amount of purulent material drained from this site of the skin entrance. After I placed th e 12-Irish drain, additional 200 mL were aspirated, all of which looked like dark brown purulent mat erial. Some of this was sent for Gram stain and culture. We had one 18-Irish drain left in the department. The 12-Irish drain was cut, removed over wire, an d the new 18-Irish drain was then advanced. The tip terminates about 6 cm above the iliac crest, aim ing medially, which essentially is the exact location of where this fluid collection is. There are la rge sideholes in this drain. The drain is attached to the CHARLIE bulb, and sutured externally in place. Fluoroscopy: 0.9 minutes, 2 images Impression: 1. CHARLIE drain removed. 2. 200 mL of purulent material aspirated/leaked out of the CHARLIE drain site during the process of exchan ging to a new drain. 3. 18-Irish large large bore multi-sidehole catheter advanced into the right lower quadrant fluid co llection site, attached to bulb suction. 4. Fluid sent for cultures.
--- NOTE | 2016-04-20 18:48 | IR ---
Abscess drain check and exchange Indication: Duodenal perforation. Questionable mucous material draining out of the lower quadrant enrique in, which terminates at the region of the duodenum. Patient just recently started on clear liquid t. Fistulogram requested to evaluate for communication with bowel, and also to change out the drain s juan j the drain is likely plugged. Informed consent: Obtained from the patient. Risks and benefits were discussed. Crosscutting Measure: Patient's current list of medications including all known prescriptions, over- the-counters, herbals, and vitamin/mineral/dietary supplements are reviewed. Medications' name, dosa ge, frequency, and route of administration are confirmed. The patient is a non-smoker. Prophylactic Antibiotic: Cefazolin was not ordered and administered for antimicrobial prophylaxis be cause it was not medically necessary. VTE Prophylaxis: There is not an order for VTE prophylaxis to be given within 24 hours of the proced ure end time. VTE prophylaxis was not given because it was not medically necessary. Technique: Patient was placed in supine position. A "timeout" procedure was performed to identify t he correct patient and the correct procedure. 1% Xylocaine was used for local anesthetic. All flandre[place] ents of maximal sterile barrier technique including cap, mask, sterile gown, sterile gloves, large st erile sheet, hand hygiene, and 2% chlorhexidine for cutaneous antisepsis, followed. I tried to aspirate or inject the right lower quadrant drain without success. The drain is indeed hali y plugged. I was not able to advance a non-Glidewire through it, but a Glidewire went through the enrique in fairly easily, terminating in the left upper quadrant. After discussion with Dr. Delmer Salcedo, this drain was then cut, and removed over the Glidewire. Bassem pe catheter was advanced over Glidewire, and a fistulogram was performed at the level of the duodenal perforation. A good amount contrast was injected, and no extravasation into large or small bowel was seen. The contrast remained extravascular and extra lumen. Amplatz wire was advanced, and the Kumpe catheter was pulled. A 16-Romansh Thal-Quick catheter with mu ltiple sideholes was then advanced and hubbed. The tip of this catheter terminates in the region of t he duodenal injury. Additional contrast was again injected, confirming catheter placement. Patient tolerated the procedure well. Fluoroscopy: 4.5 minutes, 21 images Impression: 1. No evidence for fistulization to large or small bowel. I will obtain a noncontrasted CT scan of th e abdomen to confirm this at this time. 2. Original CHARLIE drain was totally plugged up. 3. New 16-Romansh Thal-Quick drain advanced from right lower quadrant incision site, terminating in th e left upper quadrant, close to the region of the duodenal injury.
[2016-04-20] MEDS: MELATONIN 3 MG TAB PO SCH (21:25)
[2016-04-21] MEDS: HEPARIN 5,000 UNIT/0.5 ML SYR SC SCH ×3 (05:50→22:01)
[2016-04-21] MEDS: TAMSULOSIN HCL 0.4 MG CAP PO SCH (07:58)
[2016-04-21] MEDS: ERTAPENEM 1 GM in NS 50 ML IV SCH (07:58)
[2016-04-21] MEDS: PANTOPRAZOLE SODIUM 40 MG TAB PO SCH ×2 (07:58→19:51)
[2016-04-21] MEDS: VANCOMYCIN 750 MG in D5W 150 ML IV SCH (07:58)
--- NOTE | 2016-04-21 11:33 | SOAPPROG ---
SOAP Progress Note Assessment/Plan: Assessment: 81 yo male s/p ex lap x 2, duodenal perf repair, debridement of necrotic fat. Had new drains placed yesterday by IR Tolerating clear diet PE in chair, comfortable Abdomen 2 CHARLIE drains with scant clear drainage, no surrounding erythema, feeding tube in place Plan continue clear diet, swallow study next week then advance possible d/c to SNF today per medicine, ID follow up in our office next week. 04/14/16 10:00 04/21/16 11:29 Objective: Vital Signs Temp Pulse Resp BP Pulse Ox 36.6 C 99 18 126/81 H 94 04/21/16 08:00 04/21/16 08:00 04/21/16 08:00 04/21/16 08:00 04/21/16 08:00 Microbiology 04/20/16 15:10 Gram Stain - Final Other - Aspirate Laboratory Results 04/18/16 05:20 04/18/16 05:20 04/20/16 04/21/16 04/22/16 05:59 05:59 05:59 Intake Total 2567 2585 Output Total 435 200 Balance 2132 2385 PT 16.9 SEC (12.0-15.0) H 03/22/16 17:15 INR 1.37 (0.83-1.16) H 03/22/16 17:15 ICD10 Worksheet Patient Problems: Problems Problem Status Diagnosed Hypoxia Acute Pneumonia Acute
[2016-04-21] MEDS: FLUCONAZOLE/NaCl 100 ML IV SCH (11:45)
[2016-04-21] MEDS: FUROSEMIDE 20 MG/2 ML VIAL IVP SCH ×2 (11:45→15:25)
--- NOTE | 2016-04-21 14:09 | PCMIDPN ---
Assessment/Plan: Assessment: E coli bacteremia-source likely the biliary tract as a high burden of common bile duct stones and debris were discovered and removed on ERCP. This bacteremia is resolved after completion of 2 weeks of therapy. Patient is status post small bowel rupture and retroperitoneal necrosis secondary to bile leakage. Patient is making slow continued improvement. He continues on ertapenem, fluconazole and vancomycin (recently switched from daptomycin secondary to cost issues upon discharge). Duration has been determined to be 4 weeks from final debridement and drainage. Stop date 2016. Patient is 2 days status post replacement of abdominal drains. Significant amount of fluid did come from the newly placed drain. Patient feels well. Continues to be ambulating well. Plan: 1. Continue intravenous vancomycin, ertapenem and fluconazole. Stop date 2016. 2. Follow clinical course. 04/21/16 19:19 Subjective: Patient is sitting in his hospital chair. No new complaints. Ambulating well. Tolerating antibiotics. Objective: Ertapenem Fluconazole Vancomycin stop date 04/30/2016. Vital Signs Temp Pulse Resp BP Pulse Ox 36.6 C 99 18 126/81 H 94 04/21/16 08:00 04/21/16 08:00 04/21/16 08:00 04/21/16 08:00 04/21/16 08:00 Microbiology 04/20/16 15:10 Gram Stain - Final Other - Aspirate Laboratory Results 04/18/16 05:20 04/18/16 05:20 04/20/16 04/21/16 04/22/16 05:59 05:59 05:59 Intake Total 2567 2585 Output Total 435 200 Balance 2132 2385 - Physical Exam General Appearance: WD/WN, alert, no apparent distress, non-toxic Respiratory: lungs clear, normal breath sounds, No respiratory distress Cardiac/Chest: regular rate, rhythm, No tachycardia Skin: normal color, warm/dry, No rash Neuro/Psych: alert, normal mood/affect, oriented x 3 ICD10 Worksheet Patient Problems: Problems Problem Status Diagnosed Hypoxia Acute Pneumonia Acute
[2016-04-21] MEDS: ACETAMINOPHEN 325 MG TAB PO PRN ×2 (15:41→19:51)
--- NOTE | 2016-04-21 15:45 | HOSPPROG ---
Hospitalist Progress Note Assessment/Plan: 81-year-old admitted with fatigue and found to have E coli bacteremia. Further evaluation revealed biliary source with multiple common bile duct stones. He underwent ERCP and stent placement. Several days postprocedure he started having more abdominal distention and eventually was diagnosed with a perforation in the duodenum and underwent exploratory lap and repair of perforation with omental patch. He underwent 2nd I and D on 04/01 for abscess. Currently he has [address] He underwent CT scan and evaluation of drain placement this afternoon. No fistula noted after injection of contrast into abdomen. He is leaving now for repeat evaluation of drain placement this afternoon # E coli bacteremia secondary to biliary source complicated by sepsis which has since resolved. Status post ERCP with common bile duct stone removal and stent placement complicated by perforation and bile leak * Status post treatment for E coli bacteremia * Stents placed 03/12/2016, plan to DC 6-8 weeks post placement with GI # duodenal perforation status post exploratory lap and repair of perforation with omental patch. Followed by General surgery. Follow-up I&D on 04/[address] Dunbar * On Vanco Invanz and fluconazole with stop date of 04/30/2016 * Patient can take in clears as well as tube feeds per J-tube * Will follow up with Dr. Dunbar a week after discharge to discuss advancing his diet and surgical follow-up * Stable for discharge soon, Dr. Alanna Wagner would like to remove 1 of his drains prior to discharge the other drain will likely stay in place after discharge. # fluid overload * will give a few doses of IV Lasix # pancreatitis status post ERCP. Resolved # Diarrhea, soft stool, likely from TF, follow. Has had neg c.diff # postop ileus resolved # severe protein calorie malnutrition secondary to above * Continue on tube feeds # acute on chronic kidney disease with a history of BPH creatinine 1.4 today will follow # anemia, will transfuse for hemoglobin less than 7. No obvious site of ongoing bleeding noted # BPH/urinary retention on Flomax, still has Wesley in place. # hypernatremia, resolved # possible influenza exposure - prophylactic Tamiflu # FCFT # SQH for VTE ppx # dispo - He can likely be discharged in the morning if everything looks okay. He will be going to [facility] for rehab. Continue his same medications. Follow up with Dr. Alanna carter. Follow up with GI at the end of April for stent removal, after he finishes his antibiotics. Subjective: No new complaints Objective: Vital Signs Temp Pulse Resp BP Pulse Ox 36.6 C 99 18 126/81 H 94 04/21/16 08:00 04/21/16 08:00 04/21/16 08:00 04/21/16 08:00 04/21/16 08:00 Microbiology 04/20/16 15:10 Gram Stain - Final Other - Aspirate Laboratory Results 04/18/16 05:20 04/18/16 05:20 04/20/16 04/21/16 04/22/16 05:59 05:59 05:59 Intake Total 2567 2585 Output Total 435 200 Balance 2132 2385 PT 16.9 SEC (12.0-15.0) H 03/22/16 17:15 INR 1.37 (0.83-1.16) H 03/22/16 17:15 - Physical Exam Constitutional: no apparent distress, appears nourished, not in pain Eyes: anicteric sclera, EOMI Ears, Nose, Mouth, Throat: moist mucous membranes, hearing normal, ears appear normal Cardiovascular: regular rate and rhythym, edema ( 2+) Respiratory: no respiratory distress, no rales or rhonchi, clear to auscultation Gastrointestinal: normoactive bowel sounds, soft, non-tender abdomen, no palpable masses Neurologic: AAOx3 Psychiatric: interacting appropriately, not anxious, not encephalopathic, thought process linear ICD10 Worksheet Patient Problems: Problems Problem Status Diagnosed Hypoxia Acute Pneumonia Acute
[2016-04-21] MEDS: MELATONIN 3 MG TAB PO SCH (19:51)
[2016-04-21] MEDS ORDERED: oxyCODONE IR 5 MG TAB ONE (22:51)
[2016-04-22] MEDS: HEPARIN 5,000 UNIT/0.5 ML SYR SC SCH ×3 (05:07→21:25)
[2016-04-22] MEDS: ERTAPENEM 1 GM in NS 50 ML IV SCH (07:50)
[2016-04-22] MEDS: PANTOPRAZOLE SODIUM 40 MG TAB PO SCH ×2 (07:56→21:26)
[2016-04-22] MEDS: TAMSULOSIN HCL 0.4 MG CAP PO SCH (07:56)
[2016-04-22] MEDS: FUROSEMIDE 20 MG/2 ML VIAL IVP SCH ×2 (07:57→14:55)
--- NOTE | 2016-04-22 09:09 | SOAPPROG ---
SOAP Progress Note Assessment/Plan: Assessment/Plan - 81yo M s/p ex-lap x2 c duodenal repair and washout - Continues to do well and progress clinically. Tolerating feeds. Drains appropriate. - Rehab 03/16/16 13:25 03/18/16 11:00 03/19/16 12:10 03/22/16 10:11 03/22/16 14:17 03/23/16 15:52 03/24/16 10:34 03/25/16 13:54 03/26/16 11:15 03/26/16 11:17 03/29/16 11:06 03/30/16 11:08 04/02/16 10:50 04/03/16 08:40 04/05/16 10:27 04/06/16 10:49 04/08/16 09:26 04/09/16 10:15 04/10/16 09:41 04/11/16 14:07 04/12/16 10:25 04/13/16 11:14 04/15/16 09:48 04/16/16 08:41 04/17/16 08:31 04/19/16 09:38 04/20/16 09:50 04/20/16 09:53 04/20/16 09:59 04/22/16 09:03 Subjective: Had some R sided abd pain last night, feels well this morning. Objective: Vital Signs Temp Pulse Resp BP Pulse Ox 36.7 C 98 20 98/55 L 93 04/22/16 08:42 04/22/16 08:42 04/22/16 08:42 04/22/16 08:42 04/22/16 08:42 Microbiology 04/20/16 15:10 Gram Stain - Final Other - Aspirate 04/20/16 15:10 Mycobacterial Smear (TROY) - Final Other - Aspirate Laboratory Results 04/18/16 05:20 04/18/16 05:20 04/21/16 04/22/16 04/23/16 05:59 05:59 05:59 Intake Total 2585 350 680 Output Total 200 550 Balance 2385 -200 680 PT 16.9 SEC (12.0-15.0) H 03/22/16 17:15 INR 1.37 (0.83-1.16) H 03/22/16 17:15 ICD10 Worksheet Patient Problems: Problems Problem Status Diagnosed Hypoxia Acute Pneumonia Acute
[2016-04-22] MEDS: VANCOMYCIN 750 MG in D5W 150 ML IV SCH (09:39)
--- NOTE | 2016-04-22 09:53 | PDIAF ---
- Diagnosis Diagnosis: DU perforation, peritonitis, abscess Code Status: Full Code - Medication Management Discharge Medications: Medications to Continue on Transfer Aspirin [Aspirin 81mg (*)] 81 mg PO HS 03/07/16 [Last Taken 03/06/16] Naproxen Na-Diphenhydramin HCl [Aleve Pm Caplet] 1 each PO HS 03/07/16 [Last Taken 03/06/16] [facility] Antibiotics: vancomycin 750mg IV daily, ertapenem 1gm IV daily, fluconazole 200mg IV [place] [facility] Antibiotic Stop Date: 04/30/16 Discharge Medications: Refer to the Discharge Home Medication list for PRN reason. PICC Care - Routine: Yes - Orders Diet Texture: Thin Liquids Weigh Patient: daily Wound Care Instructions: 2 CHARLIE drains to bulb suction. Please empty twice daily and record outputs. - cover with clean gauze and tape daily. - Labs/Radiology BMP Date: 04/21/16 (every Tue, Tuesday) CBC Date: 04/19/16 (Weekly Tuesday) CMP Date: 04/19/16 (Weekly Tuesday) Vanco Trough Date and Time: 04/19/16, 04/21/16,04/28/16 Call or Fax Lab and Imaging Results to: [id number] [facility] - Follow Up Care Current Providers and Referrals: Maegan Tejada MD [Medical Doctor] - 04/27/16 10:00 am OUT OF STATE,. [Primary Care Provider] - As per Instructions Manjit Dunbar MD [Medical Doctor] - follow up in 1 week (Will plan for swallow study in 1 week, before drain removal and diet advancement)
--- NOTE | 2016-04-22 10:22 | HOSPPROG ---
Hospitalist Progress Note Assessment/Plan: 81-year-old admitted with fatigue and found to have E coli bacteremia. Further evaluation revealed biliary source with multiple common bile duct stones. He underwent ERCP and stent placement. Several days postprocedure he started having more abdominal distention and eventually was diagnosed with a perforation in the duodenum and underwent exploratory lap and repair of perforation with omental patch. He underwent 2nd I and D on 04/01 for abscess. Currently he has [address] He underwent CT scan and evaluation of drain placement this afternoon. No fistula noted after injection of contrast into abdomen. He is leaving now for repeat evaluation of drain placement this afternoon # E coli bacteremia secondary to biliary source complicated by sepsis which has since resolved. Status post ERCP with common bile duct stone removal and stent placement complicated by perforation and bile leak * Status post treatment for E coli bacteremia * Stents placed 03/12/2016, plan to DC 6-8 weeks post placement with GI * recent drainage growing out Pseudomonas -will need to wait for sensitivities prior to discharge # duodenal perforation status post exploratory lap and repair of perforation with omental patch. Followed by General surgery. Follow-up I&D on 04/[address] Dunbar * On Vanco Invanz and fluconazole with stop date of 04/30/2016 * Patient can take in clears as well as tube feeds per J-tube * Will follow up with Dr. Dunbar a week after discharge to discuss advancing his diet and surgical follow-up * Stable for discharge soon, Dr. Alanna Wagner would like to remove 1 of his drains prior to discharge the other drain will likely stay in place after discharge. # fluid overload * increase Lasix # pancreatitis status post ERCP. Resolved # Diarrhea, soft stool, likely from TF, follow. Has had neg c.diff # postop ileus resolved # severe protein calorie malnutrition secondary to above * Continue on tube feeds # acute on chronic kidney disease with a history of BPH creatinine 1.4 today will follow # anemia, will transfuse for hemoglobin less than 7. No obvious site of ongoing bleeding noted # BPH/urinary retention on Flomax, still has Wesley in place. # hypernatremia, resolved # possible influenza exposure - prophylactic Tamiflu # FCFT # SQH for VTE ppx # dispo - He can likely be discharged in the morning if everything looks okay. [facility] Continue his same medications. Follow up with Dr. Alanna carter. Follow up with GI at the end of April for stent removal, after he finishes his antibiotics. * will need to wait for sensitivities on Pseudomonas prior to DC Subjective: no new complaints Objective: Vital Signs Temp Pulse Resp BP Pulse Ox 36.7 C 98 20 98/55 L 93 04/22/16 08:42 04/22/16 08:42 04/22/16 08:42 04/22/16 08:42 04/22/16 08:42 Microbiology 04/20/16 15:10 Gram Stain - Final Other - Aspirate 04/20/16 15:10 Mycobacterial Smear (TROY) - Final Other - Aspirate Laboratory Results 04/18/16 05:20 04/18/16 05:20 04/21/16 04/22/16 04/23/16 05:59 05:59 05:59 Intake Total 2585 350 680 Output Total 200 550 140 Balance 2385 -200 540 PT 16.9 SEC (12.0-15.0) H 03/22/16 17:15 INR 1.37 (0.83-1.16) H 03/22/16 17:15 discussed with Infectious Disease and surgery - Physical Exam Constitutional: no apparent distress, appears nourished, not in pain Eyes: anicteric sclera, EOMI Ears, Nose, Mouth, Throat: moist mucous membranes, hearing normal Cardiovascular: regular rate and rhythym, no murmur, rub, or gallop, edema ( 2+ pedal better) Respiratory: no respiratory distress, no rales or rhonchi, clear to auscultation Gastrointestinal: normoactive bowel sounds, soft, non-tender abdomen, other ( CHARLIE drain) Neurologic: AAOx3 Psychiatric: interacting appropriately, not anxious, not encephalopathic, thought process linear ICD10 Worksheet Patient Problems: Problems Problem Status Diagnosed Hypoxia Acute Pneumonia Acute
[2016-04-22] MEDS: FLUCONAZOLE/NaCl 100 ML IV SCH (10:53)
--- NOTE | 2016-04-22 12:00 | PCMIDPN ---
Assessment/Plan: 81 yo male with complicated medical history presenting 5 weeks ago with sepsis due Meade-S E coli bacteremia, secondary to choledocholithiasis s/p ERCP - course complicated by DU perf with obvious intra-abdominal spillage followed by small leak 03/22 following repair and resultant abscess, s/p IR drainage 03/23 meade- susceptible enterococcus. Went back to the OR 04/02 with right-sided abscess/ necrotic fat which was debrided (no Cx). Had to be drained again 04/20 by IR and now cx showing PsA. --continue vancomycin 750mg IV daily, for enterococcus, fluconazole for empiric therapy for gastric perf. --dc ertapenem, start cefepime 2gm IV q12 (CrCl 40s) for Pseudomonas --Tentatively plan 2 weeks post last drainage, 05/04/16 stop date -- dc okay prior to ID rounding tomorrow # Acute renal failure: much improved, Cr stable 1.4, good UOP. ATN +AIN to zosyn # Meade-S E coli bacteremia: 03/09 and 03/21 blood cx demonstrate clearance. s/p 2 weeks of therapy at 03/21/16 Meds, antibiotic therapy day number 37; day 17 post incision and drainage Ertapenem 1gm IV daily Fluconazole 200 mg IV daily Tamiflu for PrEP Microbiology 04/20 abdominal aspirate: Gram stain positive gram-negative rods, culture Pseudomonas S: Cefepime, Zosyn, ceftazidime, tobramycin; I: Meropenem 04/13 CDIFF neg 03/21 blood cultures 2 sets: negative 03/23 abdominal aspirate: 3+ GPCs, amp-S enterococcus 03/09 blood cultures 2 sets negative 03/07 blood cultures 2 sets: E coli Subjective: Stool is firming No specific abdominal complaints Objective: Vital Signs Temp Pulse Resp BP Pulse Ox 36.7 C 98 20 98/55 L 93 04/22/16 08:42 04/22/16 08:42 04/22/16 08:42 04/22/16 08:42 04/22/16 08:42 Microbiology 04/20/16 15:10 Gram Stain - Final Other - Aspirate 04/20/16 15:10 Mycobacterial Smear (TROY) - Final Other - Aspirate Laboratory Results 04/18/16 05:20 04/18/16 05:20 04/21/16 04/22/16 04/23/16 05:59 05:59 05:59 Intake Total 2585 350 680 Output Total 200 550 140 Balance 2385 -200 540 - Physical Exam General Appearance: no apparent distress EENT: pale conjunctiva, No thrush Respiratory: other (Decreased breath sounds in the base), No accessory muscle use Neck: supple Cardiac/Chest: regular rate, rhythm Extremities: pedal edema (Improved) Abdomen: normal bowel sounds, non-tender, soft, distended (Slight), other (1 CHARLIE with serosanguineous drainage, 2nd CHARLIE with light brown material) Skin: warm/dry, pallor, No rash Neuro/Psych: alert, oriented x 3 - Line/s RUE PICC Lines: No drainage, No erythema ICD10 Worksheet Patient Problems: Problems Problem Status Diagnosed Hypoxia Acute Pneumonia Acute
[2016-04-22] MEDS: CEFEPIME HCL 2 GM in D5W 100 ML IV SCH ×2 (12:20→21:26)
--- NOTE | 2016-04-22 16:18 | PDIAF ---
- Diagnosis Diagnosis: DU perforation, peritonitis, abscess Code Status: Full Code - Medication Management Discharge Medications: Medications to Continue on Transfer Aspirin [Aspirin 81mg (*)] 81 mg PO HS 03/07/16 [Last Taken 03/06/16] Naproxen Na-Diphenhydramin HCl [Aleve Pm Caplet] 1 each PO HS 03/07/16 [Last Taken 03/06/16] Nursing Home Antibiotics: vancomycin 750mg IV daily, cefepime 2gm IV q12h, fluconazole 200mg IV qD Nursing Home Antibiotic Stop Date: 05/06/16 Discharge Medications: Refer to the Discharge Home Medication list for PRN reason. PICC Care - Routine: Yes - Orders Diet Texture: Thin Liquids Weigh Patient: daily Wound Care Instructions: 2 CHARLIE drains to bulb suction. Please empty twice daily and record outputs. - cover with clean gauze and tape daily. - Labs/Radiology BMP Date: 04/29/16 (every ) CBC Date: 04/26/16 (Weekly Tuesday) CMP Date: 04/26/16 (Weekly Tuesday) Vanco Trough Date and Time: 04/26/16, 04/29/16,05/03/16, 05/06/16 Call or Fax Lab and Imaging Results to: [id number] [facility] - Follow Up Care Current Providers and Referrals: Manjit Dunbar MD [Medical Doctor] - follow up in 1 week (Will plan for swallow study in 1 week, before drain removal and diet advancement) Maegan Tejada MD [Medical Doctor] - 04/27/16 10:00 am OUT OF STATE,. [Primary Care Provider] - As per Instructions
[2016-04-22] MEDS: ACETAMINOPHEN 325 MG TAB PO PRN (21:26)
[2016-04-22] MEDS: MELATONIN 3 MG TAB PO SCH (21:26)
[2016-04-23] MEDS: ACETAMINOPHEN 325 MG TAB PO PRN (02:44)
[2016-04-23] MEDS: oxyCODONE IR 5 MG TAB PO PRN ×2 (04:07→13:11)
[2016-04-23] MEDS ORDERED: HYDROmorphONE/DILAUDID 1 MG/ML SYR IVP ONE (05:02)
[2016-04-23] MEDS ORDERED: HYDROmorphONE/DILAUDID 1 MG/ML SYR ONE (05:09)
[2016-04-23] MEDS: HEPARIN 5,000 UNIT/0.5 ML SYR SC SCH ×2 (06:04→13:06)
[2016-04-23 08:06] VITALS: RESP 12
[2016-04-23 08:17] LABS: % IMMATURE GRANULYOCYTES 0.9 % (0.0-1.1); ABSOLUTE IMMATURE GRANULOCYTES 0.06 10^3/uL (0.00-0.10); ADD DIFF? NO; ADD MORPH? NO; ADD SCAN? NO; ATYPICAL LYMPHOCYTE FLAG 20 (0-99); FRAGMENT RBC FLAG 0 (0-99); LEFT SHIFT FLG 0 (0-99); LIPEMIA HEMOLYSIS FLAG 80 (0-99); MEAN CELL HEMOGLOBIN 30.6 pg (27.9-34.1); MEAN CELL HEMOGLOBIN CONCENTR. 31.8 g/dL (32.4-36.7); MEAN CELL VOLUME 96.1 fL (81.5-99.8); PLATELET CLUMPS FLAG 10 (0-99); PLATELET COUNT 246 10^3/uL (150-400); RED BLOOD CELL COUNT 2.29 10^6/uL (4.40-6.38)
[2016-04-23] MEDS: CEFEPIME HCL 2 GM in D5W 100 ML IV SCH (08:25)
[2016-04-23 08:45] LABS: ALANINE AMINOTRANSFERASE 34 IU/L (21-72); ALBUMIN 2.1 g/dL (3.5-5.0); ALKALINE PHOSPHATASE 91 IU/L (38-126); ANION GAP 8 mEq/L (8-16); ASPARTATE AMINOTRANSFERASE 17 IU/L (17-59); BILIRUBIN,TOTAL 0.3 mg/dL (0.1-1.4); CALCIUM 7.9 mg/dL (8.5-10.4); CARBON DIOXIDE 28 mEq/l (22-31); CHLORIDE 105 mEq/L (97-110); CREATININE 1.6 mg/dL (0.7-1.3); GLOMERULAR FILTRATION RATE 42; GLUCOSE 118 mg/dL (70-100); POTASSIUM 4.1 mEq/L (3.5-5.2); SODIUM 141 mEq/L (134-144); TOTAL PROTEIN 5.2 g/dL (6.3-8.2)
[2016-04-23] MEDS: FLUCONAZOLE/NaCl 100 ML IV SCH (09:20)
[2016-04-23] MEDS: FUROSEMIDE 20 MG/2 ML VIAL IVP SCH (09:39)
[2016-04-23] MEDS: TAMSULOSIN HCL 0.4 MG CAP PO SCH (09:47)
[2016-04-23] MEDS: PANTOPRAZOLE SODIUM 40 MG TAB PO SCH (09:47)
[2016-04-23] MEDS: VANCOMYCIN 750 MG in D5W 150 ML IV SCH (10:40)
[2016-04-23 11:07] VITALS: BP 120/63; PULSE 89; TEMP 98.5; O2SAT 94
--- NOTE | 2016-04-23 11:50 | PDIAF ---
- Diagnosis Diagnosis: DU perforation, peritonitis, abscess Code Status: Full Code - Medication Management Discharge Medications: Medications to Continue on Transfer Aspirin [Aspirin 81mg (*)] 81 mg PO HS 03/07/16 [Last Taken 03/06/16] Cefepime HCl [Maxipime] 2 gm IV Q12HRS #0 vial 04/23/16 [Last Taken Unknown] FLUCONAZOLE/NaCl [Diflucan (Premix)] 100 ml IV DAILY #0 bag 04/23/16 [Last Taken Unknown] Ipratropium/Albuterol [Duoneb (*)] 3 ml IH Q6HRS PRN #0 deyvial 04/23/16 [Last Taken Unknown] Pantoprazole Sodium [Protonix 40mg (*)] 40 mg PO BID #0 tab 04/23/16 [Last Taken Unknown] Tamsulosin HCl [Flomax 0.4 MG (*)] 0.4 mg PO DAILY #0 cap 04/23/16 [Last Taken Unknown] Vancomycin [Vancomycin (*)] 750 mg IV DAILY #0 vial 04/23/16 [Last Taken Unknown ] Nursing Home Antibiotics: vancomycin 750mg IV daily, cefepime 2gm IV q12h, fluconazole 200mg IV qD [facility] Antibiotic Stop Date: 05/06/16 Discharge Medications: Refer to the Discharge Home Medication list for PRN reason. PICC Care - Routine: Yes - Orders Services needed: Physical Therapy, Occupational Therapy Diet Texture: Thin Liquids, No Oral Liquids Tube feeding: Jevity 1.5 at 60 cc/hr,free water flush 200 cc q4 Weigh Patient: daily Wound Care Instructions: 2 CHARLIE drains to bulb suction. Please empty twice daily and record outputs. - cover with clean gauze and tape daily. - Labs/Radiology BMP Date: 04/29/16 (every ) CBC Date: 04/26/16 (Weekly Tuesday) CMP Date: 04/26/16 (Weekly Tuesday) Vanco Trough Date and Time: 04/26/16, 04/29/16,05/03/16, 05/06/16 Call or Fax Lab and Imaging Results to: [id number] [facility] - Follow Up Care Current Providers and Referrals: Manjit Dunbar MD [Medical Doctor] - follow up in 1 week (Will plan for swallow study in 1 week, before drain removal and diet advancement) Maegan Tejada MD [Medical Doctor] - 04/27/16 10:00 am OUT OF STATE,. [Primary Care Provider] - As per Instructions
--- NOTE | 2016-04-23 11:56 | PDIAF ---
- Diagnosis Diagnosis: DU perforation, peritonitis, abscess Code Status: Full Code - Medication Management Discharge Medications: Medications to Continue on Transfer Aspirin [Aspirin 81mg (*)] 81 mg PO HS 03/07/16 [Last Taken 03/06/16] Cefepime HCl [Maxipime] 2 gm IV Q12HRS #0 vial 04/23/16 [Last Taken Unknown] FLUCONAZOLE/NaCl [Diflucan (Premix)] 100 ml IV DAILY #0 bag 04/23/16 [Last Taken Unknown] Ipratropium/Albuterol [Duoneb (*)] 3 ml IH Q6HRS PRN #0 deyvial 04/23/16 [Last Taken Unknown] Pantoprazole Sodium [Protonix 40mg (*)] 40 mg PO BID #0 tab 04/23/16 [Last Taken Unknown] Tamsulosin HCl [Flomax 0.4 MG (*)] 0.4 mg PO DAILY #0 cap 04/23/16 [Last Taken Unknown] Vancomycin [Vancomycin (*)] 750 mg IV DAILY #0 vial 04/23/16 [Last Taken Unknown ] Prison Antibiotics: vancomycin 750mg IV daily, cefepime 2gm IV q12h, fluconazole 200mg IV qD Director Of Patient Care Antibiotic Stop Date: 05/06/16 Discharge Medications: Refer to the Discharge Home Medication list for PRN reason. PICC Care - Routine: Yes - Orders Services needed: Physical Therapy, Occupational Therapy Diet Recommendation: other (clear liquids) Diet Texture: Thin Liquids Tube feeding: Jevity 1.5 at 60 cc/hr,free water flush 200 cc q4 Weigh Patient: daily Wound Care Instructions: 2 CHARLIE drains to bulb suction. Please empty twice daily and record outputs. - cover with clean gauze and tape daily. - Labs/Radiology BMP Date: 04/29/16 (every ) CBC Date: 04/26/16 (Weekly Tuesday) CMP Date: 04/26/16 (Weekly Tuesday) [place]rough Date and Time: 04/26/16, 04/29/16,05/03/16, 05/06/16 Call or Fax Lab and Imaging Results to: [id number] Mallory - Follow Up Care Current Providers and Referrals: Manjit Dunbar MD [Medical Doctor] - follow up in 1 week (Will plan for swallow study in 1 week, before drain removal and diet advancement) Maegan Tejada MD [Medical Doctor] - 04/27/16 10:00 am OUT OF STATE,. [Primary Care Provider] - As per Instructions
--- NOTE | 2016-04-23 12:53 | GDS ---
[f rep st] DISCHARGE SUMMARY DISCHARGE DIAGNOSES: 1. Choledocholithiasis and cholangitis. 2. Escherichia coli bacteremia. 3. Perforation of duodenum, status post exploratory laparoscopy and repair of perforation with an om ental patch. 4. Multiple Interventional Radiology interventions for abscess drainage with 2 current drains in. 5. Post ERCP pancreatitis. 6. Severe protein calorie malnutrition. 7. Acute on chronic kidney disease. 8. Anemia. 9. Benign prostatic hypertrophy with urinary retention. HISTORY: This is a 81-year-old male who presented with fatigue and was found to have E coli bacterem ia. Further investigation found a biliary source with multiple common bile duct stones. PLAN: 1. E coli bacteremia. This has resolved. He is on broad-spectrum antibiotics for perforation to tr eat this. 2. Multiple common bile duct stones. This was treated with ERCP. Unfortunately, duodenal perforati on occurred. He does have a biliary stent and he needs this to be removed within 6-8 weeks, which wo uld be toward the end of April. 3. Duodenal perforation. Patient is status post exploratory lap and repair with omental patch. He is being followed by Dr. Manjit Dunbar. He does have a couple of drains in currently, with 1 recen tly placed to drain a new fluid collection. Currently, he is not n.p.o. and will get a swallow study done early next week, and then probably start him on a diet after that per General Surgery. He is a ble to take clears at this time along with J-tube feedings. 4. Intraabdominal abscesses. The patient has grown out Enterococcus and now has Pseudomonas from dr vick. He remains on vancomycin, fluconazole and cefepime, which was started yesterday. This will go until 04/30. Infectious Disease is following. FOLLOWUP INSTRUCTIONS: 1. He will follow up with General Surgery next week, as well as with Infectious Disease. 2. He does need removal of biliary stent within 8 weeks per Gastroenterology, and can follow up with Dr. Keller. TIME SPENT: Greater than 30 minutes was spent on discharge. /[id number]/MODL
== END 2016-04-23 15:18 | DRG 853 ==
LOC: F3E 23:55 → OBSVTOIN 03-08 09:40 → F2N 03-15 21:50 → F1N 03-16 17:28 → F2N 04-01 17:19 → F3E 04-01 20:00
PROVIDERS: ADMIT Student in an Organized Health Care Education/Training Program; ATTEND Internal Medicine
PROC: 0DB68ZX Excision of Stomach, Via Natural or Artificial Opening Endoscopic, Diagnostic (ICD-10-PCS; 2016-03-12)
PROC: 0DB98ZX Excision of Duodenum, Via Natural or Artificial Opening Endoscopic, Diagnostic (ICD-10-PCS; 2016-03-12)
PROC: 0F9C8ZZ Drainage of Ampulla of Vater, Via Natural or Artificial Opening Endoscopic (ICD-10-PCS; 2016-03-12)
PROC: 0FC98ZZ Extirpation of Matter from Common Bile Duct, Via Natural or Artificial Opening Endoscopic (ICD-10-PCS; 2016-03-12)
PROC: 0F798DZ Dilation of Common Bile Duct with Intraluminal Device, Via Natural or Artificial Opening Endoscopic (ICD-10-PCS; 2016-03-12)
PROC: 0DH80UZ Insertion of Feeding Device into Small Intestine, Open Approach (ICD-10-PCS; principal; 2016-03-15 19:26)
PROC: 0DQ90ZZ Repair Duodenum, Open Approach (ICD-10-PCS; principal; 2016-03-15 19:26)
PROC: 0W9H00Z Drainage of Retroperitoneum with Drainage Device, Open Approach (ICD-10-PCS; principal; 2016-03-15 19:26)
PROC: 3E0G36Z Introduction of Nutritional Substance into Upper GI, Percutaneous Approach (ICD-10-PCS; 2016-03-16)
PROC: 0D9670Z Drainage of Stomach with Drainage Device, Via Natural or Artificial Opening (ICD-10-PCS; 2016-03-23)
PROC: 30233N1 Transfusion of Nonautologous Red Blood Cells into Peripheral Vein, Percutaneous Approach (ICD-10-PCS; 2016-03-26)
PROC: 02HV33Z Insertion of Infusion Device into Superior Vena Cava, Percutaneous Approach (ICD-10-PCS; 2016-03-31)
PROC: 0W9H30Z Drainage of Retroperitoneum with Drainage Device, Percutaneous Approach (ICD-10-PCS; 2016-04-01)
PROC: 0WPH30Z Removal of Drainage Device from Retroperitoneum, Percutaneous Approach (ICD-10-PCS; 2016-04-04)
PROC: 0W2HX0Z Change Drainage Device in Retroperitoneum, External Approach (ICD-10-PCS; 2016-04-20)
DX: A41.51 Sepsis due to Escherichia coli [E. coli] (principal); K80.30 Calculus of bile duct with cholangitis, unspecified, without obstruction; N17.9 Acute kidney failure, unspecified; E43 Unspecified severe protein-calorie malnutrition; K91.71 Accidental puncture and laceration of a digestive system organ or structure during a digestive system procedure; K65.1 Peritoneal abscess; B95.2 Enterococcus as the cause of diseases classified elsewhere; B96.5 Pseudomonas (aeruginosa) (mallei) (pseudomallei) as the cause of diseases classified elsewhere; K85.00 Idiopathic acute pancreatitis without necrosis or infection; N13.30 Unspecified hydronephrosis; K56.7 Ileus, unspecified; E87.0 Hyperosmolality and hypernatremia; R06.6 Hiccough; E87.70 Fluid overload, unspecified; J98.11 Atelectasis; N18.9 Chronic kidney disease, unspecified; K21.9 Gastro-esophageal reflux disease without esophagitis; N40.1 Benign prostatic hyperplasia with lower urinary tract symptoms; R33.8 Other retention of urine; D64.9 Anemia, unspecified; Z20.828 Contact with and (suspected) exposure to other viral communicable diseases
CPT/HCPCS: 96374; 97001-GP; 97110-GO; 97110-GP; 97112-GP; 97116-GP; 97164-GP; 97166-GO; 97168-GO; 97530-GO; 97530-GP; 97535-GO; C1729; C1751; C1769; C2625; G0378; G0472; G8978-GP-CI; G8978-GP-CJ; G8978-GP-CK; G8979-GP-CI; G8980-GP-CI; G8987-GO-CJ; G8987-GO-CK; G8987-GO-CL; G8988-GO-CI; G8988-GO-CJ; J0456; J0692; J0696; J0878; J1100; J1170; J1200; J1335; J1450; J1610; J1650; J1956; J2001; J2248; J2250; J2310; J2370; J2405; J2543; J2704; J2997; J3010; J3370; P9016; P9047; Q9961; Q9968

== ENCOUNTER 2016-05-03 20:49 | Emergency (ER) | payer OTHER, BC ==
--- NOTE | 2016-05-03 21:21 | EDPHY ---
H & P Stated Complaint: clogged feeding tube - Personal History Current Tetanus/Diphtheria Vaccine: Yes Current Tetanus Diphtheria and Acellular Pertussis (TDAP): Yes - Medical/Surgical History Hx Asthma: No Hx Chronic Respiratory Disease: No Hx Diabetes: No Hx Cardiac Disease: No Hx Renal Disease: No Hx Cirrhosis: No Hx Alcoholism: No Hx HIV/AIDS: No Hx Splenectomy or Spleen Trauma: No Other PMH: R knee replacement, cholecystectomy, removal of colon polyps - Social History Smoking Status: Former smoker Time Seen by Provider: 05/03/16 21:06 HPI/ROS: CHIEF COMPLAINT: " My J tube is clogged" HISTORY OF PRESENT ILLNESS: 81-year-old male arrives via private vehicle. He has extensive recent medical history including hospitalization for E coli bacteremia, choledocholithiasis and cholangitis, ERCP pancreatitis, abdominal abscess drainages, placement of G-tube post duodenal perforation, stating that he is unable to past fluids through his J-tube since this evening. He is on a regimen of clear liquids by mouth as well as G-tube feedings. He denies abdominal pain. Denies fever chills. Denies back or flank pain. He is passing gas and bowel movements as normal. REVIEW OF SYSTEMS: A ten point review of systems was performed and is negative with the exception of the items mentioned in the HPI PAST MEDICAL & SURGICAL HISTORY: Recent hospitalization for choledocholithiasis, cholangitis, E coli bacteremia, duodenal perforation, abdominal abscess, pancreatitis, acute acute on chronic kidney disease, anemia, BPH SOCIAL HISTORY: PHYSICAL EXAM (Prior to examination, patient consented to physical exam, hands were washed and my usual and customary physical exam procedures followed) 1) GENERAL: Well-developed, well-nourished, alert and oriented. Appears to be in no acute distress. 2) HEAD: Normocephalic, atraumatic 3) HEENT: Pupils equal, round, reactive to light bilaterally. Sclera anicteric. 4) NECK: Full range of motion, no meningeal signs. 5) LUNGS: Clear auscultation bilaterally, no wheezes, no rhonchi, no retractions. 6) HEART: Regular rate and rhythm, no murmur, no heave, no gallop. 7) ABDOMEN: J tube in place. multiple dressings in place. Specifically the dressing on the right flank the patient requested me to look at was evaluated. This area appears well, mild amount of continued drainage No guarding, no rebound, no focal tenderness, negative McBurney's, negative Mc's, negative Rovsing's, negative peritoneal sign, 8) MUSCULOSKELETAL: Moving all extremities, no focal areas of tenderness, no obvious trauma. No peripheral edema or discoloration. 9) BACK: No CVA tenderness, no midline vertebral tenderness, no fluctuance, no step-off, no obvious trauma, no visual or palpable abnormality. 10) SKIN: No rash, no petechiae. 11) Psychiatric: Patient is oriented X 3, there is no agitation. DIFFERENTIAL DIAGNOSIS: in no particular order including but clogged J-tube, bowel obstruction, displaced J-tube (Gerson Sinclair) Constitutional: Initial Vital Signs Temperature (C) 37.1 C 05/03/16 20:59 Heart Rate 111 H 05/03/16 20:59 Respiratory Rate 16 05/03/16 20:59 Blood Pressure 123/69 H 05/03/16 20:59 O2 Sat (%) 95 05/03/16 20:59 O2 Delivery Mode Room Air O2 (L/minute) 1.5 Allergies/Adverse Reactions: morphine Allergy (Verified 03/12/16 19:16) Home Medications: Medication Instructions Recorded Aspirin [Aspirin 81mg (*)] 81 mg PO HS 03/07/16 Cefepime HCl [Maxipime] 2 gm IV Q12HRS #0 vial 04/23/16 FLUCONAZOLE/NaCl [Diflucan 100 ml IV DAILY #0 bag 04/23/16 (Premix)] Ipratropium/Albuterol [Duoneb (*)] 3 ml IH Q6HRS PRN #0 deyvial 04/23/16 Pantoprazole Sodium [Protonix 40mg 40 mg PO BID #0 tab 04/23/16 (*)] Tamsulosin HCl [Flomax 0.4 MG (*)] 0.4 mg PO DAILY #0 cap 04/23/16 Vancomycin [Vancomycin (*)] 750 mg IV DAILY #0 vial 04/23/16 Medical Decision Making Procedures: Nursing staff cleared the patient's J-tube and at 9:44 p.m. the J-tube is patent. (Gerson Sinclair) ED Course/Re-evaluation: J-tube has been cleared by nursing staff. Plan will be discharge. He is scheduled for a swallow test in the morning at [facility] and then with follow-up with Dr. Manjit Dunbar. He will be discharged back to his nursing facility this evening. (Gerson Sinclair) The patient was evaluated and managed by the physician clinical assistant. I have reviewed this chart and I agree with the findings and plan of care as documented , as indicated by my signature. I am the secondary supervising physician. ( Alanna Arana) Departure - Departure Disposition: Home, Routine, Self-Care Clinical Impression: clogged j tube Condition: Good Instructions: How to Use and Care for Your PEG Tube (ED) Referrals: Manjit Dunbar MD [Medical Doctor] - 1 day without fail
[2016-05-03 22:06] VITALS: BP 119/63; PULSE 101; RESP 18; TEMP 98.2; O2SAT 90
== END 2016-05-03 22:07 | disposition home or self-care (01) ==
DX: K94.13 Enterostomy malfunction (principal); Z79.82 Long term (current) use of aspirin; Z87.891 Personal history of nicotine dependence

== ENCOUNTER 2016-05-04 08:45 | Inpatient (IN) | payer OTHER, BC ==
[2016-05-04] MEDS ORDERED: NS 1,000 ML IV ONE (15:21)
[2016-05-04] MEDS ORDERED: ACETAMINOPHEN 325 MG TAB PO PRN (15:36)
[2016-05-04] MEDS ORDERED: oxyCODONE IR 5 MG TAB PO PRN (15:36)
[2016-05-04] MEDS ORDERED: ONDANSETRON DISINTEGRATING 4 MG TAB PO PRN (15:36)
[2016-05-04] MEDS ORDERED: traMADol 50 MG TAB PO PRN (15:58)
--- NOTE | 2016-05-04 16:29 | GHP ---
[f rep st] HISTORY AND PHYSICAL DATE OF ADMISSION: 05/04/2016 CHIEF COMPLAINT: Renal failure. HISTORY OF PRESENT ILLNESS: This is a 81-year-old man who had a very prolonged hospitalization here , just discharged on April 23, 2016. He was readmitted with renal failure. To summarize his previous hospitalization, initially presented with E coli bacteremia. Source was i dentified as choledocholithiasis. ERCP was performed. Suffered a duodenal perforation. Required m ultiple I and D's by Dr. Dunbar. Has been on long-term antibiotics. Cultures have grown Entero coccus faecalis as well as Pseudomonas. On his last debridement, he had multiple drains in place. He was discharged with vancomycin, cefepime, and fluconazole to cover above bacteria. He has been following with both Dr. Tejada as well as Dr. Dunbar. Dr. Tejada noted that his cre atinine has been rising since April 29, 2016. On discharge, it was 1.4. On April 29, 2016, i t was 2.2. Check yesterday shows a creatinine of 4.5. He was seen by Dr. Dunbar yesterday who discontinued all of his drains. Today, he had a small bowel follow-through study which showed persistent duodenal leak. He tells me that his urination has seemed about normal. His biggest complaint is shortness of breat h with no cough. He has been quite sedentary at [facility]. He has been receiving some physical th erapy. He had significant lower extremity edema which is relatively unchanged. His antibiotics have been continued. He is receiving vancomycin, notably trough checked yesterday w as 15. PAST MEDICAL/SURGICAL HISTORY: 1. Duodenal perforation with multiple abscesses requiring I and D. 2. E coli bacteremia on previous hospitalization. 3. Chronic kidney disease, baseline is about 1.4. 4. BPH and urinary retention. MEDICATIONS: Please see medication reconciliation. ALLERGIES: Morphine. FAMILY HISTORY: He has a son with a blood clot. SOCIAL HISTORY: Recently has been living at [facility]. REVIEW OF SYSTEMS: A 10-point review of systems is conducted and is negative, except per HPI. PHYSICAL EXAMINATION: VITAL SIGNS: Blood pressure is 136/73, heart rate 108, respiration rate 20, saturating 96% on 2 L, temperature is 36.7. GENERAL: The patient is a pleasant man who appears jose ewhat chronically ill, lying in bed, in no acute distress. HEENT: Shows mucous membranes to be dry . CARDIOVASCULAR: Shows him to be tachycardic. He has no murmurs, rubs or gallops. PULMONARY: S hows tubular breath sounds in the right base. He is slightly tachypneic. ABDOMEN: Shows him to snyder ve a J-tube in place. He has a gauze dressing on the right side of his abdomen and right flank. Th e right flank is somewhat indurated, mild erythema with purulent drainage. Otherwise, he is soft. He is diffusely tender to palpation. SKIN: Shows no rash. : Shows no Wesley. NEUROLOGIC: Show s him to be alert and oriented x3. He is moving all extremities. PSYCHIATRIC: Shows normal mood a nd affect. LABS: Reviewed. Previous labs as above. DATA: 1. I discussed this with both Dr. Bernal as well as Dr. Dunbar. Will admit to med/surg. Monitor kidney function. Consider CT scan tomorrow. 2. Upper GI with air shows persistently from the second portion of his duodenum. IMPRESSION AND PLAN: A 81-year-old male with complicated recent past medical history, presents now with renal failure. 1. Renal failure. He has been receiving vancomycin and also cefepime. He had significant issues w ith renal failure on his previous hospitalization. Fortunately, recent electrolytes have been gurjit l. I have ordered stat labs to be drawn, urine electrolytes and urine eosinophils. I suspect that this is most likely hemodynamic in nature. I have given him a bolus of normal saline, and will give him continuous normal saline throughout the evening. Will likely need to consult Renal, but will a wait further diagnostics. He had a Wesley placed on his previous hospitalization, discontinued at [facility]. Will check renal ultrasound as well. 2. Duodenal perforation status post multiple I and D's, drain placements. Drains recently removed. Continue antibiotics per Infectious Disease. Likely will pursue CT abdomen and pelvis with no IV contrast tomorrow. Will hold off today as he already received barium for his upper GI, which would obscure findings. 3. Shortness of breath. Will get a chest x-ray. 4. History of Escherichia coli bacteremia. 5. Anemia. Recheck CBC. 6. Deep venous thrombosis risk is high. I will give him Lovenox. May need to be held perioperativ becca. 7. Nutrition. He will need continuous J-tube feedings for now. Will keep him n.p.o. /[id number]/MODL
[2016-05-04] MEDS ORDERED: ALTEPLASE 2 MG VIAL IVP ONE ×2 (16:30→18:00)
[2016-05-04 16:43] LABS: ADD MORPH? YES; ADD SCAN? YES; ATYPICAL LYMPHOCYTE FLAG 0 (0-99); FRAGMENT RBC FLAG 0 (0-99); HEMATOCRIT 20.9 % (40.0-51.0); LIPEMIA HEMOLYSIS FLAG 80 (0-99); MEAN CELL HEMOGLOBIN 31.2 pg (27.9-34.1); MEAN CELL HEMOGLOBIN CONCENTR. 32.5 g/dL (32.4-36.7); MEAN CELL VOLUME 95.9 fL (81.5-99.8); MEAN PLATELET VOLUME 9.7 fL (8.7-11.7); PLATELET CLUMPS FLAG 0 (0-99); PLATELET COUNT 193 10^3/uL (150-400); RED BLOOD CELL COUNT 2.18 10^6/uL (4.40-6.38); RED CELL DISTRIBUTION WIDTH 17.1 % (11.5-15.2)
[2016-05-04 16:46] LABS: HEMOGLOBIN 6.8 g/dL (13.7-17.5); LEFT SHIFT FLG 200 (0-99)
[2016-05-04 16:47] LABS: INR 1.53 (0.83-1.16); PROTIME(PATIENT) 18.4 SEC (12.0-15.0)
--- NOTE | 2016-05-04 16:59 | GCON ---
[f rep st] CONSULTATION DATE OF CONSULTATION: 05/04/2016 CHIEF COMPLAINT: Dehydration, fatigue. HISTORY OF PRESENT ILLNESS: This is a 81-year-old male, well known to me from a previous prolonged hospitalization secondary to duodenal perforation. I subsequently took the patient back to the oper ating room twice, first to repair and patch the defect, the second time for a washout. He subsequen tly was discharged to a residential facility after an almost [id number] hospitalization. At the time of discharge, he was on a clear liquid diet which he was tolerating without issue. He d id have 2 CHARLIE drains, which had minimal drainage, and he was overall doing well. I have subsequently seen him once since his discharge. At that point in time, he looked overall wel l. His 2 CHARLIE drains had minimal drainage and were subsequently discontinued. I subsequently brought him back to the hospital today for an upper GI series to look at his duodenal sweep to see whether or not the patch had held completely in order to advance his diet. Upon furth er evaluation, it shows that there is a small amount of contrast extravasation. I did go down and r eview these images with the radiologist, as well as evaluate the patient in the radiology area. The patient looks fatigued, tired, and disheveled. I also spoke [place] [facility] [place] The patient had labs yesterday and had a significant bump in his creatinine to 4. 5. After discussing with all medical teams, the decision was made to bring him into the hospital. PAST MEDICAL HISTORY: Choledocholithiasis, pneumonia, duodenal perforation, acute kidney injury. PAST SURGICAL HISTORY: Cholecystectomy, duodenal repair, and abdominal washout. REVIEW OF SYSTEMS: A full 10-point review was performed and, unless explicitly stated above, is neg ative. PHYSICAL EXAM: GENERAL: He is alert and oriented, in no acute distress, but does appear tired. CA RDIOVASCULAR: He is not tachycardic, has a regular rhythm. LUNGS: Clear, although diminished at t he bases. ABDOMEN: Soft. His right flank perc drain site continues to drain a cloudy material. T he 2 anterior abdominal CHARLIE sites, the medial one continues to drain some similar fluid. His abdomen is otherwise soft, non-peritoneal. His J-tube is clean, dry, and intact. EXTREMITIES: 2+ pitting edema. LABS: Leukocytosis to 13,000 and an elevated creatinine of 4.5 on recent outpatient labs. IMAGING: Upper GI series performed earlier today does show a small amount of contrast extravasation from the second portion of the duodenum consistent with persistent leak. 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 We will plan to have the patient admitted to the medical service. I have already talked with Dr. Wu regarding his admission. He is familiar with the patient an d has accepted admission. We will plan to fluid challenge in an effort to improve his overall kidne y function as well as check a full set of labs upon admission. From a surgical standpoint, will winifred p him nothing by mouth. Given the fact that he got barium contrast earlier today, we will plan to h old off on any CT scan imaging for at least a day or so, but more than likely he will require an add itional percutaneous drain to that right flank which he has fistulized to. I anticipate that this l eak will close conservatively, but he may need an additional drain or [address] Tejada of the infectious disease service is also aware of the patient and they will be following as well. /[id number]/MODL
[2016-05-04 17:08] LABS: ALANINE AMINOTRANSFERASE 35 IU/L (21-72); ALBUMIN 2.4 g/dL (3.5-5.0); ALKALINE PHOSPHATASE 81 IU/L (38-126); ANION GAP 11 mEq/L (8-16); ASPARTATE AMINOTRANSFERASE 24 IU/L (17-59); BILIRUBIN,TOTAL 0.8 mg/dL (0.1-1.4); CARBON DIOXIDE 23 mEq/l (22-31); CHLORIDE 102 mEq/L (97-110); CREATININE 5.6 mg/dL (0.7-1.3); GLOMERULAR FILTRATION RATE 10; GLUCOSE 96 mg/dL (70-100); MAGNESIUM 1.8 mg/dL (1.6-2.3); POTASSIUM 4.6 mEq/L (3.5-5.2); SODIUM 136 mEq/L (134-144)
[2016-05-04 17:31] LABS: SCAN POSITIVE
[2016-05-04 17:37] LABS: PLATELET ESTIMATE ADEQUATE (ADEQ)
[2016-05-04 18:21] LABS: ADD DIFF? YES
--- NOTE | 2016-05-04 18:26 | PCMIDPN ---
Assessment/Plan: Assessment/Plan: * Polymicrobial abdominal abscess and peritonitis following duodenal perforation after ERCP for choledocholithiasis with associated E coli bacteremia : Undergoing therapy with vancomycin and cefepime with most recent culture showing growth of Enterococcus faecalis and Pseudomonas. Persistent duodenal leak noted on upper GI study earlier today. Drains were removed yesterday and patient has persistent purulent drainage from posterior drain site. Also has surrounding erythema and induration of soft tissue. Continue cefepime and patient with likely therapeutic vancomycin level based on acute renal failure. Plans for CT scan tomorrow to further assess for recurrent retroperitoneal fluid collection and need for additional drainage. * Acute renal failure: Likely multifactorial with hypovolemia/ATN and possible vancomycin as contributors. Previous history of acute renal failure during hospitalization which was felt to be due to ATN with possible AIN from piperacillin/tazobactam. Vancomycin will be held. Agree with plans for Nephrology evaluation. Ultrasound shows no evidence of obstruction. Time spent with patient, greater than 35 minutes in coordination of care related to polymicrobial abdominal abscess and acute renal failure. Findings and plan were reviewed with both Dr. Wu and Manjinder. 05/04/16 18:23 05/04/16 18:25 05/04/16 18:27 Subjective: Patient readmitted to the hospital today after recent prolonged hospitalization associated with E coli bacteremia in the setting of choledocholithiasis complicated by duodenal perforation and polymicrobial intra-abdominal/ retroperitoneal abscess. During hospital stay, he had acute renal failure which was felt to be due to ATN with possible contribution from AIN related to Zosyn as urine eosinophils were present. Patient was discharged to complete vancomycin, cefepime and fluconazole with anticipated stop date of 05/06/2016. Patient was seen in our office by Dr. Tejada on 04/27/2016. He was showing signs of slow clinical improvement with normalization of his white count and no ongoing fever. Vancomycin doses were adjusted given increased creatinine with dose held on 04/30/2016 and resumed subsequently at 500 mg IV Q 24 hours. Over the weekend, patient has experienced progressive increase in his creatinine with value of 4.5 yesterday. He describes having low-grade temperature around 100.1 over the weekend. Chills present but no rigors. He denies abdominal pain. His drains were removed yesterday. He notes continued drainage from the flank region. No nausea or vomiting. Has loose stool associated with tube feeds. He is seen today for ongoing infectious disease care. Objective: Vital Signs Temp Pulse Resp BP Pulse Ox 36.7 C 108 H 20 136/73 H 96 05/04/16 14:49 05/04/16 14:49 05/04/16 14:49 05/04/16 14:49 05/04/16 14:49 Laboratory Results 05/04/16 16:25 05/04/16 16:25 - Physical Exam General Appearance: alert, no apparent distress EENT: other (Yellow coating on tongue), No scleral icterus Respiratory: lungs clear, No respiratory distress Cardiac/Chest: tachycardia Extremities: pedal edema, No inflammation Abdomen: non-tender, other (Right flank with purulent drainage from prior drain site with surrounding maceration, erythema and induration with some tenderness to palpation), No distended Skin: No rash, No embolic lesions - Line/s RUE PICC Lines: No drainage, No erythema ICD10 Worksheet Patient Problems: Problems Problem Status Onset Hypoxia Acute Pneumonia Acute
[2016-05-04] MEDS: NS 1,000 ML IV SCH (19:14)
[2016-05-04] MEDS ORDERED: ASPIRIN 81 MG CHEWABLE TAB PO SCH (21:00)
--- NOTE | 2016-05-04 21:45 | GCON ---
[f rep st] CONSULTATION DATE OF CONSULTATION: 05/04/2016 REASON FOR CONSULTATION: Opinion regarding acute kidney injury in a patient with known chronic kidn ey disease. HISTORY OF PRESENT ILLNESS: The patient is a very pleasant 81-year-old gentleman with known chronic kidney disease stage 3. Baseline serum creatinine of around 1.4. The patient spent approximately 2 months in the hospital from February to just about 10 days ago due to polymicrobial abdominal absc ess and peritonitis after a duodenal perforation during an ERCP for choledocholithiasis. This abdom inal abscess, peritonitis, and perforation was associated with E coli bacteremia, and he underwent t herapy with intravenous antibiotics during that hospital stay. He also went back to the operating r oom for washout and surgical debridement a couple of times as well. It was thought that perhaps he did have acute interstitial nephritis due to Zosyn therapy as he did have urine eosinophils that wer e positive. He was discharged on vancomycin, cefepime, and fluconazole and was to stop his antibiot ics on 05/06/16. The patient was seen in the emergency department last night with a plugged PEG tub e catheter. This was opened and he went home. This morning, he had an upper gastrointestinal swall ow with follow through and was noted to have a persistent duodenal leak. The patient was admitted t [facility] as his serum creatinine had increased from 4.5 yesterday up to 5.6 today. Currently, he says he feels okay. He is tired. He denies having had fevers, chills, nausea, vomiti ng, abdominal pain, diarrhea, constipation, blurry vision, double vision, headache, orthopnea, parox ysmal nocturnal dyspnea, diminished urine output, gross hematuria, dysuria, palpitations, or syncope . CURRENT MEDICATIONS: Include: 1. Cefepime 2 g a day. 2. Protonix 40 mg twice a day. 3. Normal saline 100 cc/hour after a 3 L bolus. He is also going to be having 2 units of packed re d blood cells transfused. 4. Tramadol 50 mg every 6 hours. ALLERGIES: Morphine. FAMILY HISTORY: Negative for renal disease. SOCIAL HISTORY: The patient is . He has 2 children. He is formerly from [place]. He ret ired in 1999. He does not use tobacco or alcohol, IV or recreational drugs and has not tattoos. He enjoys spending time with his . He resides in senior care facility. REVIEW OF SYSTEMS: A complete 12-point review of systems was performed with pertinent positives and negatives as per the previous sections. PHYSICAL EXAMINATION: VITAL SIGNS: Blood pressure 136/73, pulse 108, respirations 20, temp 36.7, w eight 91.6 kg. GENERAL: He is awake, alert, cooperative. He is a bit confused and has a hard time remembering past events. HEENT: Pupils are reactive to light and extraocular movements are intact . Mucous membranes are somewhat dry. NECK: No lymphadenopathy, thyromegaly, JVD, or bruit. HEART : Tachycardic, regular. No rub. No S3. He has a grade 1/6 murmur. LUNGS: No rales, rhonchi, or wheezes. ABDOMEN: Bowel sounds are positive. Soft, nondistended. No organomegaly noted. EXTREM ITIES: Positive for edema. No cyanosis or clubbing. NEUROLOGIC: No asterixis. SKIN: He has stefan nges of arterial insufficiency in his lower extremities bilaterally. LYMPH: No palpable lymphadeno donna or lymphedema. MUSCULOSKELETAL: No effusions or tenderness. LABORATORY: Serum sodium 136, potassium 4.6, chloride 102, CO2 23, BUN 63, creatinine 5.6, glucose 96, calcium 9, AST 24, albumin 2.4, magnesium 1.8. WBC 11.5, hemoglobin 6.8, hematocrit 21, platele t count 193,000. INR of 1.3. Ultrasound of the kidneys showed the right kidney to be 11, the left 12.2 cm. The cortical thicknes s on the right was 1.7 cm, on the left 1.5 cm. There was increased echogenicity consistent with med ical renal disease. There was no masses, hydronephrosis, or stone although he did have a 1.3 cm shae dder calculus. IMPRESSION: 1. Acute kidney injury. Serum creatinine has been rising recently, was 4.5 yesterday and 5.6 today . He has a history of acute kidney injury during his last hospital stay that responded with cessati on of Zosyn as he did have some urine eosinophils as well as IV fluids and blood pressure control. 2. Persistent duodenal leak after bowel perforation. 3. History of a protracted hospital stay due to perforated bowel with abdominal abscess, peritoniti s, and Escherichia coli sepsis. 4. Recent cultures positive for Enterococcus faecalis and Pseudomonas with a persistent duodenal le ak, currently on cefepime, vancomycin, and Diflucan. RECOMMENDATIONS: 1. There is no urgent dialysis needed at this time. 2. I agree with IV fluids. 3. I agree with transfusion. 4. We will continue to follow his electrolytes, volume status, and renal function. 5. We did discuss briefly the possible need for dialysis and all questions were answered to his sat isfaction. 6. We will be checking urine eosinophils, urine chemistries, etc. Thank you for allowing me to participate in the care of your patient. If there are any questions, janay spivey do not hesitate to contact me. I will be following along with you. /[id number]/MODL
[2016-05-04] MEDS: HEPARIN 5,000 UNIT/0.5 ML SYR SC SCH (22:34)
[2016-05-04] MEDS: PANTOPRAZOLE SODIUM 40 MG TAB PO SCH (22:38)
[2016-05-04 23:32] LABS: HEPATITIS B SURFACE ANTIBODY NEGATIVE (NEGATIVE)
[2016-05-04 23:35] LABS: COLOR YELLOW; LEUKOCYTE ESTERASE,URINE NEGATIVE (NEGATIVE); NITRITE,URINE NEGATIVE (NEGATIVE)
[2016-05-04 23:45] LABS: BACTERIA 1+ /hpf (NONE SEEN); MUCUS TRACE /lpf (NONE-1+); RBC,URINE 25-50 /hpf (0-3)
[2016-05-05 00:55] LABS: EOSMR EOSINOPHILS NO EOS SEEN (NO EOS SEEN)
[2016-05-05 00:56] LABS: EOSMR EPITHELIAL CELLS NO EPITH CELLS SEEN; EOSMR PMNS FEW PMN CELLS
[2016-05-05 00:57] LABS: EOSMR RBCS MODERATE RBCS
[2016-05-05 01:04] LABS: URIC ACID 6.7 mg/dL (3.5-8.5)
[2016-05-05 01:16] LABS: % SATURATION 9 % (20-55); TOTAL IRON BINDING CAPACITY 144 ug/dL (260-490)
[2016-05-05 02:41] LABS: HCVAB REPEAT 1 0.95; HCVAB REPEAT 2 0.99
[2016-05-05] MEDS: HEPARIN 5,000 UNIT/0.5 ML SYR SC SCH ×3 (05:22→20:34)
[2016-05-05 06:01] LABS: ALBUMIN 2.2 g/dL (3.5-5.0); ANION GAP 10 mEq/L (8-16); CALCIUM 8.1 mg/dL (8.5-10.4); CARBON DIOXIDE 21 mEq/l (22-31); CHLORIDE 109 mEq/L (97-110); CREATININE 5.5 mg/dL (0.7-1.3); GLOMERULAR FILTRATION RATE 10; GLUCOSE 105 mg/dL (70-100); POTASSIUM 4.2 mEq/L (3.5-5.2); SODIUM 140 mEq/L (134-144)
[2016-05-05 06:12] LABS: ADD MORPH? NO; ADD SCAN? YES; ATYPICAL LYMPHOCYTE FLAG 0 (0-99); FRAGMENT RBC FLAG 0 (0-99); HEMATOCRIT 21.9 % (40.0-51.0); HEMOGLOBIN 7.3 g/dL (13.7-17.5); LIPEMIA HEMOLYSIS FLAG 80 (0-99); MEAN CELL HEMOGLOBIN 30.8 pg (27.9-34.1); MEAN CELL HEMOGLOBIN CONCENTR. 33.3 g/dL (32.4-36.7); MEAN CELL VOLUME 92.4 fL (81.5-99.8); MEAN PLATELET VOLUME 10.1 fL (8.7-11.7); PLATELET CLUMPS FLAG 10 (0-99); PLATELET COUNT 174 10^3/uL (150-400); RED BLOOD CELL COUNT 2.37 10^6/uL (4.40-6.38); RED CELL DISTRIBUTION WIDTH 16.9 % (11.5-15.2)
[2016-05-05 06:25] LABS: LEFT SHIFT FLG 130 (0-99)
[2016-05-05 06:56] LABS: ADD DIFF? YES; SCAN POSITIVE
[2016-05-05 06:59] LABS: TOXIC GRANULATION PRESENT
[2016-05-05 07:01] LABS: MICROCYTES 1+; PLATELET ESTIMATE ADEQUATE (ADEQ)
[2016-05-05] MEDS: PANTOPRAZOLE SODIUM 40 MG TAB PO SCH ×2 (09:28→20:35)
[2016-05-05] MEDS ORDERED: ALBUMIN 25% 200 ML IV ONE ×2 (10:41→16:30)
--- NOTE | 2016-05-05 10:47 | HOSPPROG ---
Hospitalist Progress Note Assessment/Plan: 81 yo M w recent complex hospital stay here w MILLA, possible enterocutaneous fistula MILLA: suspect profound and prolonged pre renal although vanc toxicity cannot be ruled out vanc on hold, following levels may switch to daptomycin EC fistula: tube feeds on hold, may be a candidate for TPN. I do note that his feeding tube is distal to site of duodenal injury anemia: chronic disease will give 1 unit packed cells encephalopathy: multifactorial proph: sc heparin risk: high Subjective: case d/w dr miller, dr andrews. nurse concerned about tube feeds coming out of R flank. confused Objective: Vital Signs Temp Pulse Resp BP Pulse Ox 36.6 C 95 22 H 111/65 100 05/05/16 09:19 05/05/16 09:19 05/05/16 09:19 05/05/16 09:19 05/05/16 09:19 Laboratory Results 05/05/16 05:25 05/05/16 05:25 05/04/16 05/05/16 05/06/16 05:59 05:59 05:59 Intake Total 2100 Balance 2100 PT 18.4 SEC (12.0-15.0) H 05/04/16 16:25 INR 1.53 (0.83-1.16) H 05/04/16 16:25 - Physical Exam Constitutional: no apparent distress, chronically ill appearing, other (confused ) Eyes: PERRL, anicteric sclera Ears, Nose, Mouth, Throat: moist mucous membranes, hearing normal Cardiovascular: regular rate and rhythym, no murmur, rub, or gallop, systolic murmur, edema Respiratory: no respiratory distress, no rales or rhonchi Gastrointestinal: normoactive bowel sounds, soft, non-tender abdomen, other (J tube midline. soft. R flank CHARLIE site draining what appears to be tube feeds) Genitourinary: No amado in urethra Skin: warm, normal color Musculoskeletal: full muscle strength Neurologic: AAOx3, sensation intact bilaterally Psychiatric: interacting appropriately Lymph, Heme, Immunologic: no cervical LAD ICD10 Worksheet Patient Problems: Problems Problem Status Onset Hypoxia Acute Pneumonia Acute
--- NOTE | 2016-05-05 11:00 | PCMIDPN ---
Assessment/Plan: #ARF likely pre-renal + vancomycin, Cr stable today --holding vancomycin # Abdominal abscess/peritonitis secondary to DU leak, cx showing PsA and enterococcus. now found to have ongoing leak, bandemia, encephalopathy, may have worsening abscess due to persistent leak --hold TF to see if drainage decreases, unlikely bc feeding tube past leak --CT scan to better delineate anatomy when barium clears, likely needs repeat drainage --continue cefepime, adjusted for worsening renal function --follow vancomycin R levels. May have to consider another agent to cover enterococcus such as daptomycin. H/o AIN with B lactam --monitor repeat blood cx 05/04 # Remote h/o E coli bacteremia secondary to Choledocholithiasis # Delirium - patient recognizes me but hallucinating # SOB - O2 sat stable but admission chest x-ray shows increased pulmonary vascular congestion and effusions. Discussed with Internal Medicine team meds cefepime 2gm IV daily Vanco R level 20 05/04 20:40 with Cr 5.5 Subjective: c/o back pain and SOB, VS at time of my visit show O2 sat 93% 2L Objective: Vital Signs Temp Pulse Resp BP Pulse Ox 36.6 C 95 22 H 111/65 100 05/05/16 09:19 05/05/16 09:19 05/05/16 09:19 05/05/16 09:19 05/05/16 09:19 Laboratory Results 05/05/16 05:25 05/05/16 05:25 05/04/16 05/05/16 05/06/16 05:59 05:59 05:59 Intake Total 2100 Balance 2100 - Physical Exam General Appearance: other (mild resp distress, chr ill appearance) EENT: pale conjunctiva, dry mucous membranes, No scleral icterus Respiratory: accessory muscle use, No crackles, No stridor, No wheezing Cardiac/Chest: regular rate, rhythm Extremities: pedal edema Abdomen: non-tender, soft, other (feeding tube, drainage from former Nathalia drain sites) Skin: pallor, No rash Neuro/Psych: alert, confused - Line/s RUE PICC Lines: No drainage, No erythema - Time Spent With Patient Time Spent with Patient: greater than 35 minutes Time Spent with Patient: Greater than 35 minutes spent on this patients care, greater than 50% of time spent counseling, educating, and coordinating care regarding the above mentioned plan. ICD10 Worksheet Patient Problems: Problems Problem Status Onset Hypoxia Acute Pneumonia Acute
[2016-05-05] MEDS: CEFEPIME HCL 2 GM in D5W 100 ML IV SCH (11:34)
[2016-05-05] MEDS: NS 1,000 ML IV SCH (11:39)
--- NOTE | 2016-05-05 13:55 | SOAPPROG ---
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 PE confused but follows motor commands appears comfortable Abdomen mildly distended, feeding tube in place, soft to palpation Lower ext 2+edema Plan: keep NPO no tube feeds CT in 1-2 days will discuss with Dr Dunbar 05/05/16 13:49 Objective: Vital Signs Temp Pulse Resp BP Pulse Ox 36.6 C 93 18 118/69 93 05/05/16 11:21 05/05/16 11:21 05/05/16 11:21 05/05/16 11:21 05/05/16 11:21 Laboratory Results 05/05/16 05:25 05/05/16 05:25 05/04/16 05/05/16 05/06/16 05:59 05:59 05:59 Intake Total 2100 Balance 2100 PT 18.4 SEC (12.0-15.0) H 05/04/16 16:25 INR 1.53 (0.83-1.16) H 05/04/16 16:25 ICD10 Worksheet Patient Problems: Problems Problem Status Onset Hypoxia Acute Pneumonia Acute
--- NOTE | 2016-05-05 18:36 | SOAPPROG ---
SOAP Progress Note Assessment/Plan: Assessment: 1. arf: pt had atn vs. ain last admit, was stable on dapto/ertapenem but later changed to vanco/cefepime shortly prior to d/c. Timing is concerning for abx- induced nephrotoxicity but also now with new hematuria/proteinuria suggesting possible gn. Will repeat urine, send serologies. If no improvement will likely need bx for diagnosis. Unfortunately has been on asa, I have stopped this. Will also need to discuss possible abx change if no recovery and bx is delayed. Will likely need hd if no recovery in next day or two. Is extremely overloaded, will stop ivf. If no uo by am would place Wesley. 2. anemia: transfused 3. Overload: stop ivf, will likely need hd if no recovery shortly. Could consider lasix if Wesley placed tomorrow. Plan: 05/05/16 18:21 Subjective: Has not urinated today. Bladder scanned X2 with no more than 100ml seen. Remains on TF's, ivf. Txfused earlier today. Objective: Vital Signs Temp Pulse Resp BP Pulse Ox 36.6 C 97 22 H 138/79 H 95 05/05/16 16:39 05/05/16 16:39 05/05/16 16:39 05/05/16 16:39 05/05/16 16:39 Laboratory Results 05/05/16 05:25 05/05/16 05:25 05/04/16 05/05/16 05/06/16 05:59 05:59 05:59 Intake Total 4015 Output Total 0 Balance 4015 PT 18.4 SEC (12.0-15.0) H 05/04/16 16:25 INR 1.53 (0.83-1.16) H 05/04/16 16:25 Physical Exam - Physical Exam General Appearance: mild distress Respiratory: decreased breath sounds (at bases, R>L) Cardiac/Chest: regular rate, rhythm Abdomen: other (+abd wall edema) Extremities: swelling (to hips bilaterally) ICD10 Worksheet Patient Problems: Problems Problem Status Onset Hypoxia Acute Pneumonia Acute
[2016-05-06] MEDS ORDERED: LORazepam 2 MG/ML INJ IVP ONE ×2 (00:13→05:30)
[2016-05-06 04:26] LABS: ADD DIFF? YES; ADD MORPH? NO; ATYPICAL LYMPHOCYTE FLAG 0 (0-99); FRAGMENT RBC FLAG 0 (0-99); HEMATOCRIT 26.8 % (40.0-51.0); HEMOGLOBIN 8.9 g/dL (13.7-17.5); LIPEMIA HEMOLYSIS FLAG 80 (0-99); MEAN CELL HEMOGLOBIN 29.9 pg (27.9-34.1); MEAN CELL HEMOGLOBIN CONCENTR. 33.2 g/dL (32.4-36.7); MEAN CELL VOLUME 89.9 fL (81.5-99.8); MEAN PLATELET VOLUME 9.7 fL (8.7-11.7); PLATELET CLUMPS FLAG 0 (0-99); PLATELET COUNT 195 10^3/uL (150-400); RED BLOOD CELL COUNT 2.98 10^6/uL (4.40-6.38)
[2016-05-06 04:29] LABS: COLOR YELLOW; LEUKOCYTE ESTERASE,URINE NEGATIVE (NEGATIVE); NITRITE,URINE NEGATIVE (NEGATIVE)
[2016-05-06 04:33] LABS: BACTERIA TRACE /hpf (NONE SEEN); MUCUS TRACE /lpf (NONE-1+); RBC,URINE 50-182 /hpf (0-3)
[2016-05-06 04:34] LABS: ADD SCAN? NO; LEFT SHIFT FLG 120 (0-99)
[2016-05-06 04:52] LABS: ALBUMIN 2.6 g/dL (3.5-5.0); ANION GAP 10 mEq/L (8-16); CALCIUM 9.2 mg/dL (8.5-10.4); CARBON DIOXIDE 22 mEq/l (22-31); CHLORIDE 109 mEq/L (97-110); CREATININE 6.7 mg/dL (0.7-1.3); GLOMERULAR FILTRATION RATE 8; GLUCOSE 95 mg/dL (70-100); POTASSIUM 4.5 mEq/L (3.5-5.2); SODIUM 141 mEq/L (134-144)
[2016-05-06] MEDS: HEPARIN 5,000 UNIT/0.5 ML SYR SC SCH (05:28)
[2016-05-06 05:51] LABS: PLATELET ESTIMATE ADEQUATE (ADEQ); TOXIC GRANULATION PRESENT
[2016-05-06 05:55] LABS: HYPOCHROMIA 1+
--- NOTE | 2016-05-06 09:05 | HOSPPROG ---
Hospitalist Progress Note Assessment/Plan: 81 yo M w recent complex hospital stay here w MILLA, possible enterocutaneous fistula MILLA: suspect profound and prolonged pre renal although vanc toxicity cannot be ruled out active sediment s/o possible GN large workup pending he is volume replete, oilguric 1. place amado to follow I/O 2. no urgent need for HD encephalopathy: 2/2 renal failure and now, ativan 1. NO FURTHER BENZOS 2. USE PRN LOW DOSE HALDOL FOR AGITATION EC fistula: tube feeds on hold, may be a candidate for TPN. I do note that his feeding tube is distal to site of duodenal injury anemia: chronic disease will give 1 unit packed cells good hct bump to transfusion encephalopathy: multifactorial proph: sc heparin hold this BM given possible need for renal bx and HD catheter volume overload w hypoxia: check cxr risk: high Subjective: agitated overnight, recived IV ativan. very sedated this AM. case d/w dr miller Objective: Vital Signs Temp Pulse Resp BP Pulse Ox 36.7 C 98 22 H 123/69 H 93 05/06/16 04:04 05/06/16 04:04 05/06/16 04:04 05/06/16 04:04 05/06/16 04:04 Laboratory Results 05/06/16 04:02 05/06/16 04:02 05/05/16 05/06/16 05/07/16 05:59 05:59 05:59 Intake Total 4015 Output Total 180 Balance 3835 PT 18.4 SEC (12.0-15.0) H 05/04/16 16:25 INR 1.53 (0.83-1.16) H 05/04/16 16:25 - Physical Exam Constitutional: no apparent distress, appears nourished, other (sedated) Eyes: PERRL, anicteric sclera Ears, Nose, Mouth, Throat: moist mucous membranes, hearing normal Cardiovascular: regular rate and rhythym, no murmur, rub, or gallop, edema, other (borderline tachycardic) Respiratory: no respiratory distress, clear to auscultation Gastrointestinal: normoactive bowel sounds, soft, non-tender abdomen, other ( wounds bandaged. no rebound) Genitourinary: no bladder fullness, No amado in urethra Skin: warm, normal color Musculoskeletal: no muscle tenderness, No full muscle strength Neurologic: sensation intact bilaterally, No AAOx3 Psychiatric: not anxious, No not encephalopathic ICD10 Worksheet Patient Problems: Problems Problem Status Onset Hypoxia Acute Pneumonia Acute
[2016-05-06] MEDS: PANTOPRAZOLE SODIUM 40 MG TAB PO SCH ×2 (09:43→20:47)
[2016-05-06] MEDS: CEFEPIME HCL 2 GM in D5W 100 ML IV SCH (09:43)
[2016-05-06] MEDS ORDERED: FUROSEMIDE 100 MG in D5W 50 ML IV ONE (11:39)
--- NOTE | 2016-05-06 11:43 | SOAPPROG ---
SOAP Progress Note Assessment/Plan: Assessment/Plan: MILLA: pt with worsening MILLA since last discharge and Cr continues to uptrend, up to 6.7 today. Noted that he is starting to have some UOP now, lytes all ok. Unclear if this is AIN due to abx vs an acute GN, although he has hematuria and proteinuria this time around. Unfortunately pt was on aspirin until two days ago , which would delay doing a renal biopsy. - No emergent need for HD at this time. - Will discuss with ID regarding abx. - Will continue to monitor renal parameters closely. - May need to place a dialysis access tomorrow if he continues to worsen. - Will give a dose of Lasix today. - Serological workup pending, will monitor. - Will consider biopsy early next week if he continues to worsen or if serological workup is suspicious for GN. Hypervolemia: will give Lasix 100mg IV x1 today. Anemia: improved s/p transfusion, will monitor. Subjective: No acute events overnight. Pt has had 200ml UOP overnight and now has had 100ml this am thus far. He has some slight dyspnea today. Objective: Vital Signs Temp Pulse Resp BP Pulse Ox 36.7 C 92 19 142/82 H 93 05/06/16 09:15 05/06/16 09:15 05/06/16 09:15 05/06/16 09:15 05/06/16 09:15 Laboratory Results 05/06/16 04:02 05/06/16 04:02 05/05/16 05/06/16 05/07/16 05:59 05:59 05:59 Intake Total 4015 Output Total 180 Balance 3835 PT 18.4 SEC (12.0-15.0) H 05/04/16 16:25 INR 1.53 (0.83-1.16) H 05/04/16 16:25 General: awake, alert, no acute distress Eyes; EOMI, PERRL OP: dry mucous membranes, thick secretions on tongue CV: RRR Resp: nonlabored respirations on NC Abd; Soft, NT Ext: +2 edema BLE Neuro: CN II-XII grossly intact, no asterixis : amado cath in place with 100ml urine in bag ICD10 Worksheet Patient Problems: Problems Problem Status Onset Hypoxia Acute Pneumonia Acute
--- NOTE | 2016-05-06 13:14 | SOAPPROG ---
SOAP Progress Note Assessment/Plan: Assessment/Plan 81yo M c duodenal perf s/p ex lap, repair and washout x2. Persistent leak - Output from R flank looks more clear than previous. Abdomen soft, midline incision c/d/i. CT scan earlier today shows improved R flank fluid collection. Discussed with both rads and IR Re drainage and given locaion next to asc colon and residual barium will hold off on drainage for now as clinically looks ok. Agree with holding all PO along with TFs, will need TPN. Will place Mah[facility] in the event HD warranted, not today per neph. 05/06/16 13:11 Subjective: AMS, apparently received some ativan last noc. No complaints Objective: Vital Signs Temp Pulse Resp BP Pulse Ox 36.7 C 92 19 142/82 H 93 05/06/16 09:15 05/06/16 09:15 05/06/16 09:15 05/06/16 09:15 05/06/16 09:15 Laboratory Results 05/06/16 04:02 05/06/16 04:02 05/05/16 05/06/16 05/07/16 05:59 05:59 05:59 Intake Total 4015 100 Output Total 180 Balance 3835 100 PT 18.4 SEC (12.0-15.0) H 05/04/16 16:25 INR 1.53 (0.83-1.16) H 05/04/16 16:25 ICD10 Worksheet Patient Problems: Problems Problem Status Onset Hypoxia Acute Pneumonia Acute
[2016-05-06 18:35] LABS: ANION GAP 11 mEq/L (8-16); CALCIUM 9.2 mg/dL (8.5-10.4); CARBON DIOXIDE 20 mEq/l (22-31); CHLORIDE 107 mEq/L (97-110); CREATININE 7.2 mg/dL (0.7-1.3); GLOMERULAR FILTRATION RATE 7; GLUCOSE 85 mg/dL (70-100); POTASSIUM 4.5 mEq/L (3.5-5.2); SODIUM 138 mEq/L (134-144)
--- NOTE | 2016-05-06 20:01 | PCMIDPN ---
Assessment/Plan: Assessment/Plan: * Polymicrobial abdominal abscess and peritonitis following duodenal perforation after ERCP for choledocholithiasis with associated E coli bacteremia : CT findings noted and Dr. Dunbar's note reviewed. Continue antibiotic therapy with modifications as outlined below. * Acute renal failure: Dr. Tejada reviewed with Nephrology today with concerns that cefepime could be contributing to acute interstitial nephritis. Will therefore stop cefepime and treat with levofloxacin adjusted for renal insufficiency. Initial 750 mg dose in a.m. followed by 500 mg Q 48 hours thereafter. Will need to follow mental status carefully as quinolone could potentially exacerbate confusion. 05/06/16 19:58 05/06/16 19:59 Subjective: Patient confused. No other specific complaints noted. Objective: Vital Signs Temp Pulse Resp BP Pulse Ox 36.4 C 100 19 144/83 H 95 05/06/16 15:55 05/06/16 15:55 05/06/16 15:55 05/06/16 15:55 05/06/16 15:55 Laboratory Results 05/06/16 04:02 05/06/16 17:41 05/05/16 05/06/16 05/07/16 05:59 05:59 05:59 Intake Total 4015 400 Output Total 180 350 Balance 3835 50 Vancomycin (held but likely still with therapeutic level) Cefepime [address] abdomen pelvis with residual right flank collection which has decreased in size from a 11 x 8.1 cm to 10.5 x 5.5 cm - Physical Exam General Appearance: non-toxic, other (Confused but awake and follows commands) EENT: No scleral icterus Respiratory: other (Decreased breath sounds right base) Cardiac/Chest: regular rate, rhythm Extremities: pedal edema (2-3+ bilaterally) Abdomen: non-tender, other (Purulent drainage from right flank with less surrounding erythema and maceration) Neuro/Psych: confused ICD10 Worksheet Patient Problems: Problems Problem Status Onset Hypoxia Acute Pneumonia Acute
[2016-05-06] MEDS: HALOPERIDOL LACT 5 MG/ML INJ IVP PRN ×2 (20:47→22:14)
[2016-05-07] MEDS: IPRATROPIUM/ALBUTEROL 3 ML DEYVIAL IH PRN ×2 (00:47→09:34)
[2016-05-07 03:25] LABS: ADD DIFF? YES; ADD MORPH? NO; ATYPICAL LYMPHOCYTE FLAG 0 (0-99); FRAGMENT RBC FLAG 0 (0-99); HEMATOCRIT 27.4 % (40.0-51.0); HEMOGLOBIN 9.1 g/dL (13.7-17.5); LIPEMIA HEMOLYSIS FLAG 80 (0-99); MEAN CELL HEMOGLOBIN 30.7 pg (27.9-34.1); MEAN CELL HEMOGLOBIN CONCENTR. 33.2 g/dL (32.4-36.7); MEAN CELL VOLUME 92.6 fL (81.5-99.8); PLATELET CLUMPS FLAG 0 (0-99); PLATELET COUNT 227 10^3/uL (150-400); RED BLOOD CELL COUNT 2.96 10^6/uL (4.40-6.38); RED CELL DISTRIBUTION WIDTH 16.8 % (11.5-15.2)
[2016-05-07 03:28] LABS: ADD SCAN? NO; LEFT SHIFT FLG 100 (0-99)
[2016-05-07 04:35] LABS: ALBUMIN 2.4 g/dL (3.5-5.0); ANION GAP 17 mEq/L (8-16); CALCIUM 9.3 mg/dL (8.5-10.4); CARBON DIOXIDE 18 mEq/l (22-31); CHLORIDE 109 mEq/L (97-110); GLOMERULAR FILTRATION RATE 7; GLUCOSE 92 mg/dL (70-100); POTASSIUM 4.5 mEq/L (3.5-5.2); SODIUM 144 mEq/L (134-144)
[2016-05-07 04:48] LABS: PLATELET ESTIMATE ADEQUATE (ADEQ)
[2016-05-07 04:51] LABS: HYPOCHROMIA 1+
[2016-05-07 04:54] LABS: CREATININE 7.9 mg/dL (0.7-1.3)
--- NOTE | 2016-05-07 08:38 | SOAPPROG ---
SOAP Progress Note Assessment/Plan: Assessment: 1. MILLA Multiple potential etiologies, but seems possible that this is coinfectious. Urine protein and Complement levels are pending. He will need dialysis today. He is to transfer to [facility] and have line placed. Will dialyze today and tomorrow, then follow. 2. Nutrition He will be started on TPN. 3. Hypoxemia He will need a thoracentesis. I've discussed with hospitalist 4. Encephalopathy May be delerium. We may see some improvement with dialysis Plan: 05/07/16 08:34 Subjective: Disoriented Objective: Vital Signs Temp Pulse Resp BP Pulse Ox 36.5 C 107 H 21 H 146/81 H 95 05/07/16 03:32 05/07/16 03:32 05/07/16 03:32 05/07/16 03:32 05/07/16 03:32 Laboratory Results 05/07/16 03:00 05/07/16 03:00 05/06/16 05/07/16 05/08/16 05:59 05:59 05:59 Intake Total 4015 400 Output Total 180 825 Balance 3835 -425 PT 18.4 SEC (12.0-15.0) H 05/04/16 16:25 INR 1.53 (0.83-1.16) H 05/04/16 16:25 Physical Exam - Physical Exam General Appearance: mild distress Neck: other (JVD present) Respiratory: other (decreased BS in bases c/w effusions) Cardiac/Chest: tachycardia Male Genitalia: other (Wesley in place) Extremities: pedal edema Neuro/Psych: disoriented to place, disoriented to time ICD10 Worksheet Patient Problems: Problems Problem Status Onset Hypoxia Acute Pneumonia Acute
[2016-05-07 10:29] LABS: INR 1.49 (0.83-1.16)
[2016-05-07 10:30] LABS: APTT 33.1 SEC (23.0-38.0)
[2016-05-07] MEDS ORDERED: LIDOCAINE 1% 30 ML SDV MISC ONE (11:00)
[2016-05-07] MEDS ORDERED: LIDOCAINE 1% 5 ML SDV ID ONE (11:00)
--- NOTE | 2016-05-07 11:12 | PCMIDPN ---
Assessment/Plan: #ARF patient is to start dialysis for volume management today. Cefepime stopped yesterday as a potential contributor. # Abdominal abscess/peritonitis secondary to DU leak, cx showing PsA and enterococcus. now found to have ongoing leak, but imaging suggests fluid collection in the right upper quadrant is slightly less. Interestingly drainage from former CHARLIE site significantly decreased when tube feeds were stopped. At this point drainage of right upper abdomen fluid collection not very approachable --continue IV levofloxacin 750 3 times weekly while on hemodialysis --vancomycin levels remain therapeutic, we will continue to check random level --will continue to address potential drainage of residual fluid collection intra -abdominally # Remote h/o E coli bacteremia secondary to Choledocholithiasis # Delirium - patient remains a bit confused # SOB - increasing bilateral pleural effusions. Planned tapping right pleural effusion today meds Levofloxacin 750 mg 04/2016, # 1 Vanco R level 18 Case discussed with surgical team Subjective: significant decrease in output from CHARLIE sites after dc TFs. Patient remains delirious and is not answering orientation questions. Objective: Vital Signs Temp Pulse Resp BP Pulse Ox 36.6 C 104 H 20 135/79 H 93 05/07/16 10:52 05/07/16 10:52 05/07/16 09:37 05/07/16 10:52 05/07/16 10:52 Laboratory Results 05/07/16 03:00 05/07/16 03:00 05/06/16 05/07/16 05/08/16 05:59 05:59 05:59 Intake Total 4015 400 Output Total 180 825 Balance 3835 -425 General: Chronically ill appearing male who follows commands HEENT, dry mucous membranes white coating to tongue not consistent with thrush Cardiovascular: Tachycardic regular rate Chest: Significant decreased breath sounds up to 1/2 bilaterally Abdomen: Distended , soft, no tenderness, former CHARLIE drain site right lateral flank with small amount of purulent material : Scrotal edema, Wesley in place Right upper extremity PICC C/D/I Skin: Pallor, no rash Extremities: Anasarca - Time Spent With Patient Time Spent with Patient: greater than 35 minutes Time Spent with Patient: Greater than 35 minutes spent on this patients care, greater than 50% of time spent counseling, educating, and coordinating care regarding the above mentioned plan. ICD10 Worksheet Patient Problems: Problems Problem Status Onset Hypoxia Acute Pneumonia Acute
[2016-05-07] MEDS ORDERED: NA BICARBONATE 50 MEQ/50 ML VIAL ONE (11:45)
--- NOTE | 2016-05-07 12:01 | SOAPPROG ---
SOAP Progress Note Assessment/Plan: Assessment/Plan 81yo M c duodenal perf s/p ex lap, repair and washout x2. Persistent leak - R flank output clearing and slowing. CT scan yesterday looked ok, no drainage at this time. Will need urgent HD today, will plan to place TDC at bedside. Discussed RBA with , Josette. Cont NPO, hold TFs, TPN. 05/06/16 13:11 05/07/16 12:00 05/07/16 12:01 Subjective: altered, denies pain but doesnt converse much more Objective: Vital Signs Temp Pulse Resp BP Pulse Ox 36.6 C 104 H 20 135/79 H 93 05/07/16 10:52 05/07/16 10:52 05/07/16 09:37 05/07/16 10:52 05/07/16 10:52 Laboratory Results 05/07/16 03:00 05/07/16 03:00 05/06/16 05/07/16 05/08/16 05:59 05:59 05:59 Intake Total 4015 400 Output Total 180 825 Balance 3835 -425 PT 18.0 SEC (12.0-15.0) H 05/07/16 10:00 INR 1.49 (0.83-1.16) H 05/07/16 10:00 ICD10 Worksheet Patient Problems: Problems Problem Status Onset Hypoxia Acute Pneumonia Acute
[2016-05-07 13:14] LABS: C3 COMPLEMENT COMPONENT 135 mg/dL (75 - 175)
[2016-05-07] MEDS: PANTOPRAZOLE SODIUM 40 MG TAB PO SCH ×2 (13:25→21:22)
--- NOTE | 2016-05-07 13:37 | HOSPPROG ---
Hospitalist Progress Note Assessment/Plan: 81 yo M w recent complex hospital stay here w MILLA, possible enterocutaneous fistula MILLA: suspect profound and prolonged pre renal although vanc toxicity cannot be ruled out active sediment s/o possible GN cr worse HD catheter placed HD today needs volume removal, which will be accomplished today pleural effusion w hypoxia: s/p bedside thoracentesis encephalopathy: 2/2 renal failure and now, ativan 1. NO FURTHER BENZOS 2. USE PRN LOW DOSE HALDOL FOR AGITATION 3. ideaaly would use non pharmacologic means- ie sitter EC fistula: tube feeds on hold, may be a candidate for TPN. I do note that his feeding tube is distal to site of duodenal injury anemia: chronic disease will give 1 unit packed cells good hct bump to transfusion encephalopathy: multifactorial proph: resume tomorrow (sc heparin) volume overload w hypoxia: check cxr risk: high code: full Subjective: hypoxemic , cxr w large pleural effusion (interp by me). case d/w alma rosa miranda Objective: Vital Signs Temp Pulse Resp BP Pulse Ox 36.7 C 100 24 H 123/76 H 6 L 05/07/16 13:30 05/07/16 13:30 05/07/16 13:30 05/07/16 13:30 05/07/16 13:30 Laboratory Results 05/07/16 03:00 05/07/16 03:00 05/06/16 05/07/16 05/08/16 05:59 05:59 05:59 Intake Total 4015 400 Output Total 180 825 Balance 3835 -425 PT 18.0 SEC (12.0-15.0) H 05/07/16 10:00 INR 1.49 (0.83-1.16) H 05/07/16 10:00 - Physical Exam Constitutional: no apparent distress, other (confused, more so than yesterday) Eyes: PERRL, anicteric sclera Ears, Nose, Mouth, Throat: moist mucous membranes, hearing normal Cardiovascular: regular rate and rhythym, no murmur, rub, or gallop, other ( borderline tachycardia) Respiratory: No no respiratory distress, No no rales or rhonchi, No clear to auscultation Gastrointestinal: normoactive bowel sounds, soft, non-tender abdomen Genitourinary: amado in urethra, other (laya aid colored urine) Skin: warm, normal color Musculoskeletal: full muscle strength, no muscle tenderness Neurologic: No AAOx3 ICD10 Worksheet Patient Problems: Problems Problem Status Onset Hypoxia Acute Pneumonia Acute
[2016-05-07 13:39] LABS: C4 COMPLEMENT COMPONENT 33 mg/dL (14 - 40)
--- NOTE | 2016-05-07 14:35 | GOP ---
DATE OF OPERATION: 05/07/2016 SURGEON: Manjit Dunbar MD HIRED WORKER: None. ANESTHESIA: 1% lidocaine. PREOPERATIVE DIAGNOSIS: Renal failure. POSTOPERATIVE DIAGNOSIS: Renal failure. PROCEDURE PERFORMED: Ultrasound-guided right internal jugular temporary dialysis catheter placement . FINDINGS: Large IJ successfully cannulated. Postoperative chest film showed adequate placement wit hout complication. ESTIMATED BLOOD LOSS: 5 cc. DESCRIPTION OF PROCEDURE: As the patient had altered mental status, his successfully signed th e consent. After doing so, a [employer] time-out was performed. His right neck was then prepped and draped in the typical sterile fashion. Using a sterile ultrasound probe, I identif ied the right internal jugular vein which appeared to be distended and without defect. After instil ling 1% lidocaine into the overlying tissues, I successfully cannulated the vein and ran my guidewir e. Once successfully cannulated, I then serially dilated and successfully placed the Mahurkar toro ter within the internal jugular vein. After successful placement, it withdrew and fed blood easily it was attached to the skin with multiple interrupted nylon sutures, and a sterile dressing was plac ed. The patient tolerated the procedure well with no intraprocedural complications. COMPLICATIONS: None. /[id number]/MODL
[2016-05-08 04:29] LABS: ALBUMIN 2.4 g/dL (3.5-5.0); ANION GAP 13 mEq/L (8-16); CALCIUM 9.4 mg/dL (8.5-10.4); CARBON DIOXIDE 21 mEq/l (22-31); CHLORIDE 108 mEq/L (97-110); CREATININE 6.6 mg/dL (0.7-1.3); GLOMERULAR FILTRATION RATE 8; GLUCOSE 78 mg/dL (70-100); POTASSIUM 4.4 mEq/L (3.5-5.2); SODIUM 142 mEq/L (134-144)
[2016-05-08 04:40] LABS: ABSOLUTE NRBC COUNT 0.02 10^3/uL (0-0.01); ADD DIFF? YES; ADD MORPH? NO; ADD SCAN? NO; ATYPICAL LYMPHOCYTE FLAG 10 (0-99); FRAGMENT RBC FLAG 0 (0-99); HEMATOCRIT 26.4 % (40.0-51.0); HEMOGLOBIN 8.8 g/dL (13.7-17.5); LEFT SHIFT FLG 90 (0-99); LIPEMIA HEMOLYSIS FLAG 80 (0-99); MEAN CELL HEMOGLOBIN 30.3 pg (27.9-34.1); MEAN CELL HEMOGLOBIN CONCENTR. 33.3 g/dL (32.4-36.7); NRBC-AUTO% 0.2 % (0.0-0.2); PLATELET CLUMPS FLAG 0 (0-99); PLATELET COUNT 190 10^3/uL (150-400)
[2016-05-08 05:05] LABS: HYPOCHROMIA 1+; PLATELET ESTIMATE ADEQUATE (ADEQ)
[2016-05-08] MEDS: HEPARIN 5,000 UNIT/0.5 ML SYR SC SCH ×3 (06:11→22:39)
--- NOTE | 2016-05-08 08:55 | PCMIDPN ---
Assessment/Plan: 81 Year old male with complex hospital course now with: # sepsis associated with acute renal failure requiring hemodialysis, bandemia, encephalopathy. Underlying infection is peritonitis/abdominal abscess secondary to DU perf (with ongoing leak) with past culture showing enterococcus and Pseudomonas. Because of concern of a contribution of cephalosporins to acute renal failure patient was switched to levofloxacin yesterday, now patient with rash. Worsening encephalitis today and bandemia even after continued antibiotic therapy, HD x1, holding TF. I have concern this is due un-drained abdominal abscess . --discussed with surgery, IR to try to drain 10x5 cm fluid collection ( awaiting barium clearance) --vanco level 15, hold off on re-dosing until tomorrow # ARF - continued HD per nephrology, unclear etiology. Noted less edema today # new rash: Monitor, I have concern this is due to levofloxacin as it is the primary new medicine, not due for another dose today # right upper extremity swelling: Obtain right upper extremity Doppler study meds Levofloxacin 750 mg q48h, # 2 Vanco R level 15 Microbiology 05/04 blood cultures (2): NGTD Case discussed with Dr. Wu, Nicanor, Manjinder Ureña Subjective: Not following commands, Objective: Vital Signs Temp Pulse Resp BP Pulse Ox 37.0 C 117 H 23 H 139/83 H 92 05/08/16 08:00 05/08/16 08:00 05/08/16 08:00 05/08/16 08:00 05/08/16 08:00 Laboratory Results 05/08/16 04:09 05/08/16 04:09 05/07/16 05/08/16 05/09/16 05:59 05:59 05:59 Intake Total 400 Output Total 825 460 Balance -425 -460 T-max 37.2degrees General:ill appearing, resp distress HEENT: dry MM Neck supple CV Tachy RR Chest: +accessory muscle use, decreased bs B bases Abd: distended, decreased bs, feeding tube, minimal drainage from prior R CHARLIE drain site Skin: MP eruption L>R medial LE, scattered also on trunk and arms Neuro, moving all 4 ext but not following any commands R Arm swollen Anasarca - Time Spent With Patient Time Spent with Patient: greater than 35 minutes Time Spent with Patient: Greater than 35 minutes spent on this patients care, greater than 50% of time spent counseling, educating, and coordinating care regarding the above mentioned plan. ICD10 Worksheet Patient Problems: Problems Problem Status Onset Hypoxia Acute Pneumonia Acute
[2016-05-08] MEDS: HYDROmorphONE/DILAUDID 1 MG/ML SYR IVP PRN ×4 (09:00→23:43)
--- NOTE | 2016-05-08 09:27 | SOAPPROG ---
SOAP Progress Note Assessment/Plan: Assessment: 1. MILLA Multiple potential etiologies, but seems possible that this is coinfectious. Urine protein and Complement levels are pending. He does not appear to have obstruction. Size of RP fluid collection is decreased. Doubt leak is primary problem. Remains oliguric. First HD yesterday. Continue daily for now. 2. Nutrition He will be started on TPN. 3. Hypoxemia O2 sats ok at moment, but breathing is labored and he looks fatigued. Hopeful that thoracentesis would help, but 1L does not appear to have made that much of a clinical difference. May need [facility] ventilation today. 4. Encephalopathy May be delerium. We may see some improvement with dialysis 5. Abdominal pathology Surgery and ID managing. Subjective: Still quite ill Objective: Vital Signs Temp Pulse Resp BP Pulse Ox 37.0 C 117 H 23 H 139/83 H 92 05/08/16 08:00 05/08/16 08:00 05/08/16 08:00 05/08/16 08:00 05/08/16 08:00 Laboratory Results 05/08/16 04:09 05/08/16 04:09 05/07/16 05/08/16 05/09/16 05:59 05:59 05:59 Intake Total 400 Output Total 825 460 Balance -425 -460 PT 18.0 SEC (12.0-15.0) H 05/07/16 10:00 INR 1.49 (0.83-1.16) H 05/07/16 10:00 Physical Exam - Physical Exam General Appearance: moderate distress Neck: other (IJ HD cath in place) Respiratory: accessory muscle use, decreased breath sounds Cardiac/Chest: tachycardia Abdomen: soft Extremities: pedal edema (trace hip edema), other Neuro/Psych: disoriented to place, disoriented to time ICD10 Worksheet Patient Problems: Problems Problem Status Onset Hypoxia Acute Pneumonia Acute
[2016-05-08] MEDS: PANTOPRAZOLE SODIUM 40 MG TAB PO SCH ×2 (11:40→22:35)
[2016-05-08 12:13] LABS: BASE EXCESS -5.8 mEq/L (-2.5-2.5); BICARBONATE 17 mEq/L (22-26); PCO2 28 mmHg (34-38); PO2 69 mmHg (65-75); TCO2 18 mEq/L (23-27)
[2016-05-08 12:14] LABS: MEASURED OXYGEN SATURATION 93 % (92-95)
--- NOTE | 2016-05-08 12:20 | SOAPPROG ---
SOAP Progress Note Assessment/Plan: Assessment/Plan 81yo M c duodenal perf s/p ex lap, repair and washout x2. Persistent leak - Continues to have altered mental status. WBC up to 12k today. KUB shows some residual contrast in R colon but have asked IR to attempt perc drainage of fluid collection to help with source control. HD today, [facility] site looks c/d/ i. Abdominal exam is reassuring but he is minimally responsive, anxious to see how source control will contribute to overall medical condition. 05/06/16 13:11 05/07/16 12:00 05/07/16 12:01 05/08/16 12:18 Subjective: minimally responsive Objective: Vital Signs Temp Pulse Resp BP Pulse Ox 37.0 C 117 H 23 H 139/83 H 92 05/08/16 08:00 05/08/16 08:00 05/08/16 08:00 05/08/16 08:00 05/08/16 08:00 Laboratory Results 05/08/16 04:09 05/08/16 04:09 05/07/16 05/08/16 05/09/16 05:59 05:59 05:59 Intake Total 400 Output Total 825 460 Balance -425 -460 PT 18.0 SEC (12.0-15.0) H 05/07/16 10:00 INR 1.49 (0.83-1.16) H 05/07/16 10:00 ICD10 Worksheet Patient Problems: Problems Problem Status Onset Hypoxia Acute Pneumonia Acute
--- NOTE | 2016-05-08 12:23 | HOSPPROG ---
Hospitalist Progress Note Assessment/Plan: # acute encephalopathy - concern for airway protection - ABG pending - suspect d/t underlying process # peritonitis - s/p multiple I&Ds - duodenal perf s/p repair with omental patch - possible EC fistula - vanc/levaquin per ID # rash - follow # basilic vein superficial thrombosis - move PICC to R arm, no AC # MILLA, oliguric - HD yesterday and today through R IJ catheter - lytes ok - w/u per renal # e. coli bacteremia d/t choledocholithiasis - resolved - biliary stents will need to eventually be addressed # pleural effusion - s/p thora yesterday # SQH # FCFT ## 40 mins critical care time spent managing complex medical issues, need for possible intubation Subjective: Very confused this morning Objective: Vital Signs Temp Pulse Resp BP Pulse Ox 37.0 C 117 H 23 H 139/83 H 92 05/08/16 08:00 05/08/16 08:00 05/08/16 08:00 05/08/16 08:00 05/08/16 08:00 Laboratory Results 05/08/16 04:09 05/08/16 04:09 05/07/16 05/08/16 05/09/16 05:59 05:59 05:59 Intake Total 400 Output Total 825 460 Balance -425 -460 PT 18.0 SEC (12.0-15.0) H 05/07/16 10:00 INR 1.49 (0.83-1.16) H 05/07/16 10:00 Vitals reviewed confused, grunting Regular rate and rhythm, no murmurs rubs or gallops respirations uncomfortable, some rhonchi present abd with j-tube, he grimaces with deep palpation ICD10 Worksheet Patient Problems: Problems Problem Status Onset Hypoxia Acute Pneumonia Acute
[2016-05-08 14:57] LABS: c-ANCA Negative (Negative); p-ANCA Negative (Negative)
--- NOTE | 2016-05-08 16:03 | GCON ---
CRITICAL CARE CONSULT. DATE OF CONSULTATION: 05/08/2016 HISTORY OF PRESENT ILLNESS: Mr. Zhou is a 81-year-old male with a recent history of cholelithias is and E. coli bacteremia. He was hospitalized at [facility] up until April 23. That h ospitalization was complicated by an ERCP that resulted in a duodenal perforation. He required mult iple procedures for drainage of an abscess that grew enterococcus and pseudomonas. He was discharge d to [facility] on vancomycin, cefepime and fluconazole, but was developing increasing renal insuffi ciency initially thought to be due to prerenal azotemia. In any case, he was readmitted on 05/[address] a small bowel follow-through showed a leak at the duodenal perforation. He received IV fluids a nd seemed to be relatively stable, but was developing increasing mental status changes by 05/05. An upper GI series showed extravasation of barium, and a CT scan on 05/06 showed extraluminal barium. The drains had been removed. Biliary stents with pneumobilia were in place. There was an irregula r fluid collection measuring up to 10.5 cm. His Wesley was found to be in the urethra. His mental s tatus was still abnormal. This was thought to be due to medications at that time. His kidney funct ion got worse and he needed dialysis on 05/07, and was transferred to originally the step-down unit. Today, he was found to have a new rash. There was some swelling in his arm. PICC line showed a t hrombosis around the distal, I believe, basilic vein, and continued to have mental status changes wh ich is why I was called. There were some concerns about airway protection, though he did have a sub stantial gag reflex. He was unable to respond very well to commands. REVIEW OF SYSTEMS: Otherwise negative. PAST MEDICAL HISTORY: 1. Benign prostatic hypertrophy with urinary retention. 2. E. coli bacteremia. 3. Cholelithiasis. 4. Perforated duodenum. 5. Multiple surgical procedures and recent dialysis catheter. MEDICATIONS: Include Tylenol, DuoNeb, Haldol p.r.n., subcu heparin, Dilaudid, Levaquin, Zofran, oxy codone, Protonix, Ultram. EXAM: He was afebrile. Heart rate of 100, respirations 21, oxygen saturation 93% on 4 L, blood pre ssure 127/80. He was somnolent but did open his eyes to voice, but did not really follow any comman ds. Pupils were equally round, reactive to light. Nonicteric and noninjected. Mucous membranes we re dry. NECK: Supple without adenopathy . Hemodialysis catheter was in place without ev idence of bleeding. Breath sounds were diminished but clear to auscultation bilaterally without whe ezes, rubs or rales. HEART: Regular rate and rhythm. ABDOMEN: Soft and nontender with hypoactive bowel sounds. EXTREMITIES: Showed edema bilaterally, but no clubbing or cyanosis. NEUROLOGICALLY : Appeared to have normal cranial nerves and a very brisk gag reflex. OBJECTIVE DATA: White count of 12.8 which is climbing, hematocrit of 26, platelets of 190. Blood g as with pH of 7.41, pCO2 of 28, pO2 of 69, bicarb 18. Sodium was 142, potassium 4.4, chloride 108, bicarb 21, BUN 61, creatinine 6.6, albumin 2.4. Blood cultures from the are negative to date. A chest x-ray from yesterday following the thoracentesis showed evacuation of right effusion, persi stent small left effusion with a little bit of atelectasis. ASSESSMENT/PLAN: 1. Mental status change. It is not clear to me if this is likely a toxic metabolic encephalopathy perhaps related to renal failure as well as medications he has received in the past. I think a head CT would be warranted at this time. He appears to be protecting his airway, so I do not feel that intubation is eminent at the time of this dictation, but we will watch him closely and he likely wou ld benefit from increasing his status to intensive care unit. 2. Fluid collection in his abdomen. He is headed for Interventional Radiology today to see if a pe rcutaneous drain could be placed and follow up on cultures. 3. A new rash. This may be related to his Levaquin which is his only new medication. We will have to watch this closely. He would not be due for another dose for another day anyway, so we will mon itor for improvement. 4. PICC line associated thrombosis. I believe this is in a superficial vein and probably does not require full anticoagulation, but maybe changing to another site. 5. Acute kidney injury requiring dialysis which is being managed by Nephrology. A total of 45 minutes of critical care time was required in the evaluation of this patient. /[id number]/MODL
[2016-05-08] MEDS ORDERED: HEPARIN 50,000 UNIT/10 ML VIAL ONE (17:58)
[2016-05-09 04:09] LABS: ADD DIFF? YES; ADD MORPH? NO; ATYPICAL LYMPHOCYTE FLAG 30 (0-99); FRAGMENT RBC FLAG 0 (0-99); HEMATOCRIT 28.8 % (40.0-51.0); HEMOGLOBIN 9.4 g/dL (13.7-17.5); LIPEMIA HEMOLYSIS FLAG 80 (0-99); MEAN CELL HEMOGLOBIN 30.6 pg (27.9-34.1); MEAN CELL HEMOGLOBIN CONCENTR. 32.6 g/dL (32.4-36.7); MEAN CELL VOLUME 93.8 fL (81.5-99.8); MEAN PLATELET VOLUME 10.3 fL (8.7-11.7); PLATELET CLUMPS FLAG 10 (0-99); PLATELET COUNT 188 10^3/uL (150-400); RED BLOOD CELL COUNT 3.07 10^6/uL (4.40-6.38); RED CELL DISTRIBUTION WIDTH 17.2 % (11.5-15.2)
[2016-05-09 04:20] LABS: ALBUMIN 2.3 g/dL (3.5-5.0); ANION GAP 17 mEq/L (8-16); CALCIUM 9.4 mg/dL (8.5-10.4); CARBON DIOXIDE 18 mEq/l (22-31); CHLORIDE 107 mEq/L (97-110); CREATININE 5.9 mg/dL (0.7-1.3); GLOMERULAR FILTRATION RATE 9; GLUCOSE 80 mg/dL (70-100); POTASSIUM 4.4 mEq/L (3.5-5.2); SODIUM 142 mEq/L (134-144)
[2016-05-09 04:21] LABS: ADD SCAN? NO; LEFT SHIFT FLG 120 (0-99)
[2016-05-09 05:01] LABS: MACROCYTES 1+; PLATELET ESTIMATE ADEQUATE (ADEQ)
--- NOTE | 2016-05-09 09:03 | SOAPPROG ---
SOAP Progress Note Assessment/Plan: Assessment: 1. MILLA Multiple potential etiologies. ATN quite likely. He was changed off of cefipime for concern this may have been causing an AIN. (He has now developed a rash, probably due to the levaquin). Other seros negative. C3 and C4 ok; this make IC GN less likely. Dialyzing on a daily basis for now. 2. Nutrition He will be started on TPN. 3. Hypoxemia He is not behaving IV volume increased. Suspect this is likely due to his effusions. 4. Encephalopathy May be delerium. We may see some improvement with dialysis 5. Abdominal pathology Surgery and ID managing. IR to drain fluid collection. Antibiotic choices being affected by tolerance. 6. Anemia is stable since transfusion 05/09/16 08:59 05/09/16 09:02 Subjective: Delerious, restless Objective: Vital Signs Temp Pulse Resp BP Pulse Ox 36.6 C 108 H 24 H 152/80 H 92 05/09/16 04:00 05/09/16 06:00 05/09/16 06:00 05/09/16 06:00 05/09/16 06:00 Laboratory Results 05/09/16 03:57 05/09/16 03:57 05/08/16 05/09/16 05/10/16 05:59 05:59 05:59 Output Total 460 1540 Balance -460 -1540 PT 18.0 SEC (12.0-15.0) H 05/07/16 10:00 INR 1.49 (0.83-1.16) H 05/07/16 10:00 Physical Exam - Physical Exam General Appearance: moderate distress Neck: other (IJ HD catheter site and function good) Respiratory: decreased breath sounds Cardiac/Chest: tachycardia Abdomen: other (dobhoff, dressing noted) Male Genitalia: other (amado) Skin: other (new rash) Neuro/Psych: disoriented to person, disoriented to place, disoriented to time ICD10 Worksheet Patient Problems: Problems Problem Status Onset Hypoxia Acute Pneumonia Acute
--- NOTE | 2016-05-09 09:11 | SOAPPROG ---
SOAP Progress Note Assessment/Plan: Assessment/Plan 81yo M c duodenal perf s/p ex lap, repair and washout x2. Persistent leak - about the same today, WBC up to 15k. Spoke with Dr Goff, will plan to drain today (colon should be more clear after receiving enemas). Abdomen remains soft. Would cont NPO, cont to hold off on TFs. Cont HD, TDC site looks good. 05/06/16 13:11 05/07/16 12:00 05/07/16 12:01 05/08/16 12:18 05/09/16 09:10 Subjective: Altered Objective: Vital Signs Temp Pulse Resp BP Pulse Ox 36.6 C 108 H 24 H 152/80 H 92 05/09/16 04:00 05/09/16 06:00 05/09/16 06:00 05/09/16 06:00 05/09/16 06:00 Laboratory Results 05/09/16 03:57 05/09/16 03:57 05/08/16 05/09/16 05/10/16 05:59 05:59 05:59 Output Total 460 1540 Balance -460 -1540 PT 18.0 SEC (12.0-15.0) H 05/07/16 10:00 INR 1.49 (0.83-1.16) H 05/07/16 10:00 ICD10 Worksheet Patient Problems: Problems Problem Status Onset Hypoxia Acute Pneumonia Acute
--- NOTE | 2016-05-09 09:38 | SOAPPROG ---
SOAP Progress Note Assessment/Plan: Assessment: addendum; I looked at his urine micro. He has number WBC's and RBC's. He has no dysmorphic RBC's or cellular casts. He does have dense granular casts c/w ATN. I cannot rule out AIN. Urine P/C is pending. Objective: Vital Signs Temp Pulse Resp BP Pulse Ox 36.8 C 119 H 30 H 133/67 H 90 L 05/09/16 08:00 05/09/16 08:00 05/09/16 08:00 05/09/16 08:00 05/09/16 08:00 Laboratory Results 05/09/16 03:57 05/09/16 03:57 05/08/16 05/09/16 05/10/16 05:59 05:59 05:59 Output Total 460 1540 Balance -460 -1540 PT 18.0 SEC (12.0-15.0) H 05/07/16 10:00 INR 1.49 (0.83-1.16) H 05/07/16 10:00 ICD10 Worksheet Patient Problems: Problems Problem Status Onset Hypoxia Acute Pneumonia Acute
[2016-05-09] MEDS ORDERED: HEPARIN 50,000 UNIT/10 ML VIAL ONE (09:58)
[2016-05-09] MEDS ORDERED: NS IV PRN (10:02)
[2016-05-09] MEDS ORDERED: AZTREONAM IV PRN (10:02)
--- NOTE | 2016-05-09 10:05 | PCMIDPN ---
Assessment/Plan: 81 Year old male with complex hospital course now with: # sepsis associated with acute renal failure requiring hemodialysis, bandemia, encephalopathy. Underlying infection is peritonitis/abdominal abscess secondary to DU perf (with ongoing leak) with past culture showing enterococcus and Pseudomonas. Remains critically ill today, WBC increasing, unable to drain yesterday because of barium. --continue broad abx coverage, I have some concern about evolving resistance of PsA with antibiotic therapy + undrained abscess. Until today, Vanco levels therapeutic. Will replace vancomycin with daptomycin; GNR/PsA coverage with aztreonam (PsA intermediate to carbapenem and AIN to Pip/thanh), and will resume antifungal coverage for summer with micafungin. Notable gap in anaerobic GNR --repeat blood cx --dc levofloxacin because concern caused rash --hopeful for drainage today # ARF - continued HD per nephrology, lean towards ATN, so may be able to go back to cefepime. # new rash: still present today, concern due to FQ as only new med # right upper extremity swelling: clot, meds Levofloxacin 750 mg q48h, # 3 Vanco R level 15 yesterday Microbiology 05/04 blood cultures (2): NGTD Subjective: no change overnight, Head CT negative for acute findings. Objective: Vital Signs Temp Pulse Resp BP Pulse Ox 36.8 C 119 H 30 H 133/67 H 90 L 05/09/16 08:00 05/09/16 08:00 05/09/16 08:00 05/09/16 08:00 05/09/16 08:00 Laboratory Results 05/09/16 03:57 05/09/16 03:57 05/08/16 05/09/16 05/10/16 05:59 05:59 05:59 Output Total 460 1540 Balance -460 -1540 T-max 37 General:ill appearing, resp distress, not following commands HEENT: dry MM Neck supple, R IJ HD cath CV Tachy RR Chest: +accessory muscle use, decreased bs B bases Abd: distended, decreased bs, feeding tube, minimal drainage from prior R CHARLIE drain site Skin: MP eruption L>R medial LE, scattered also on trunk and arms - unchanged, maybe a bit more estela appearance Neuro, moving all 4 ext but not following any commands R Arm swollen, PICC now L UE Anasarca ICD10 Worksheet Patient Problems: Problems Problem Status Onset Hypoxia Acute Pneumonia Acute
[2016-05-09] MEDS: HEPARIN 5,000 UNIT/0.5 ML SYR SC SCH ×3 (11:08→22:14)
--- NOTE | 2016-05-09 11:55 | HOSPPROG ---
Hospitalist Progress Note Assessment/Plan: # acute encephalopathy - borderline airway protection; may need intubation - suspect d/t underlying processes # peritonitis - s/p multiple I&Ds - to IR today for perc drainage of fluid collection - duodenal perf s/p repair with omental patch - ID changing abx today to dapto/aztreonam # rash - follow # basilic vein superficial thrombosis - PICC moved to R arm, cont ppx SQH # MILLA, oliguric - HD today - lytes ok - w/u per renal # e. coli bacteremia d/t choledocholithiasis - resolved - biliary stents will need to eventually be addressed # pleural effusion - s/p thora # SQH # FCFT ## 40 mins critical care time spent managing complex acute medical issues as above Subjective: still very confused; s/p HD Objective: Vital Signs Temp Pulse Resp BP Pulse Ox 37.0 C 104 H 21 H 143/72 H 93 05/09/16 10:00 05/09/16 10:00 05/09/16 10:00 05/09/16 10:00 05/09/16 10:00 Laboratory Results 05/09/16 03:57 05/09/16 03:57 05/08/16 05/09/16 05/10/16 05:59 05:59 05:59 Output Total 460 1540 Balance -460 -1540 PT 18.0 SEC (12.0-15.0) H 05/07/16 10:00 INR 1.49 (0.83-1.16) H 05/07/16 10:00 confused; opens eyes to verbal stimuli; seems to protect airway RRR, no MRG CTAB abd S, TTP, no HSM; J-tube in place CTAB, no WRR ICD10 Worksheet Patient Problems: Problems Problem Status Onset Hypoxia Acute Pneumonia Acute
[2016-05-09] MEDS: DAPTOmycin 540 MG in NS 100 ML IV SCH (12:19)
[2016-05-09] MEDS: AZTREONAM 0.5 GM in NS 50 ML IV SCH ×3 (12:19→22:14)
[2016-05-09] MEDS: MICAFUNGIN NA 100 MG in NS 100 ML IV SCH (12:19)
--- NOTE | 2016-05-09 12:55 | PDINTPN ---
Repeater Operator Progress Note Assessment/Plan: Assessment/plan: 81 M with complicated recent PMH. Admitted early 04/2016 with cholelithiasis and sepsis/bacteremia (enterococcus and pseudomonas) and underwent ERCP complicated by duodenal perforation. He subsequently underwent surgical washout and repair in addition abx and was eventiually discharged to SNF. He was re-admitted with persistent bowel leak, an irregular fluid collection in the RUQ and MILLA/ CKD. He was initially stable but developed increasing encephalopathy and MILLA and required HD as of 05/07/16. Ir attempted percutaneous drainage but imaging was impaired 2/2 contrast leak from previous SBF. * Peritonitis with ?abscess and persistent leak from injured duodenum. His WBC is rising and I suspect his encephalopathy is related. IR will re-attemmpt percutaneous drainage today as return to OR is less desirable. I suspect his persistent leak can heal without surgical intervention and hopefully the percutaneous drainage will suffice for source control. Agree with ID plans to change to Dapto/aztreonam for now and FU culture data from fluid collection. Apparently with AIN 2/2 Zosyn previously. Recheck Bcx today. * Encephalopathy- suspect related to infection since electrolytes normalized with HD, head CT without acute injury, no evidence of septic shock (nl BP), no arrythmias (some PVCs before HD; corrected after), no evidence for CVA, or meningitis. Airway seems stable, though agreeably tenuous. He has a strong gag reflex and ABGs have been fine. Holding off on intubation at the moment. * Rash- subtle finding on abdomen/LE but no progression today. Possibly related to Levaquin- last dose was 05/07. * MILLA- continues with HD today and tolerating well. Presumed ATN, though cannot r/o AIN per nephrology. * PICC associated thrombosis in Right basilic vein- a superficial vessel- changed to left PICC 05/08. No direct AC indicated at this time. * Pleural effusion- right- tapped 05/07 but no labs sent. Appears stable and probably related to abdominal fluid collection. No chest tube required. Consider re-imaging once abdominal fluid collection drained. * FEN- currently with jejunostomy tube which is unlikely to communicate with duodenal leak, but would be cautious with its use. * * critical care time 45 minutes 05/09/16 12:38 Subjective: Poor mental status unchanged from 05/08. HD today Objective: Vital Signs Temp Pulse Resp BP Pulse Ox 37.0 C 104 H 21 H 143/72 H 93 05/09/16 10:00 05/09/16 10:00 05/09/16 10:00 05/09/16 10:00 05/09/16 10:00 Laboratory Results 05/09/16 03:57 05/09/16 03:57 05/08/16 05/09/16 05/10/16 05:59 05:59 05:59 Output Total 460 1540 Balance -460 -1540 PT 18.0 SEC (12.0-15.0) H 05/07/16 10:00 INR 1.49 (0.83-1.16) H 05/07/16 10:00 Physical Exam - Physical Exam General Appearance: mild distress (tachypneic), obtunded, other (opens eyes and tracks to voice, no commands) EENT: PERRL/EOMI, other (MM dry) Neck: non-tender, supple Respiratory: lungs clear, normal breath sounds, No respiratory distress Cardiac/Chest: normal peripheral pulses, regular rate, rhythm, edema Abdomen: soft, other (distant BS), No distended Skin: normal color, warm/dry, rash Lymphatic: no adenopathy Extremities: No pedal edema Neuro/Psych: no motor/sensory deficits, aphasia ICD10 Worksheet Patient Problems: Problems Problem Status Onset Hypoxia Acute Pneumonia Acute
[2016-05-09] MEDS: PANTOPRAZOLE SODIUM 40 MG in NS 100 ML IV SCH (13:39)
[2016-05-09] MEDS: PANTOPRAZOLE SODIUM 40 MG TAB PO SCH (14:27)
[2016-05-09] MEDS ORDERED: fentaNYL 100 MCG/2 ML INJ ONE (16:16)
[2016-05-09] MEDS ORDERED: MIDAZOLAM 2 MG/2 ML VIAL ONE (16:16)
[2016-05-09] MEDS ORDERED: FLUMAZENIL 0.5 MG/5 ML MDV IVP ONE (16:16)
[2016-05-09] MEDS ORDERED: NALOXONE HCL 0.4 MG/ML INJ ONE (16:16)
[2016-05-10 04:49] LABS: ADD DIFF? YES; ADD MORPH? NO; ATYPICAL LYMPHOCYTE FLAG 20 (0-99); FRAGMENT RBC FLAG 0 (0-99); HEMATOCRIT 26.8 % (40.0-51.0); HEMOGLOBIN 8.9 g/dL (13.7-17.5); LIPEMIA HEMOLYSIS FLAG 80 (0-99); MEAN CELL HEMOGLOBIN 30.7 pg (27.9-34.1); MEAN CELL HEMOGLOBIN CONCENTR. 33.2 g/dL (32.4-36.7); MEAN CELL VOLUME 92.4 fL (81.5-99.8); PLATELET CLUMPS FLAG 0 (0-99); PLATELET COUNT 141 10^3/uL (150-400); RED CELL DISTRIBUTION WIDTH 17.3 % (11.5-15.2)
[2016-05-10 05:11] LABS: ALANINE AMINOTRANSFERASE 36 IU/L (21-72); ALBUMIN 2.3 g/dL (3.5-5.0); ALKALINE PHOSPHATASE 75 IU/L (38-126); ANION GAP 17 mEq/L (8-16); ASPARTATE AMINOTRANSFERASE 18 IU/L (17-59); BILIRUBIN,TOTAL 0.7 mg/dL (0.1-1.4); CALCIUM 9.1 mg/dL (8.5-10.4); CARBON DIOXIDE 21 mEq/l (22-31); CHLORIDE 105 mEq/L (97-110); CREATININE 5.2 mg/dL (0.7-1.3); GLOMERULAR FILTRATION RATE 11; GLUCOSE 90 mg/dL (70-100); POTASSIUM 4.2 mEq/L (3.5-5.2); SODIUM 143 mEq/L (134-144); TOTAL PROTEIN 5.6 g/dL (6.3-8.2)
[2016-05-10 05:14] LABS: ADD SCAN? NO; LEFT SHIFT FLG 120 (0-99)
[2016-05-10 05:36] LABS: HYPOCHROMIA 1+; PLATELET ESTIMATE ADEQUATE (ADEQ); POLYCHROMASIA 1+
[2016-05-10] MEDS: HEPARIN 5,000 UNIT/0.5 ML SYR SC SCH ×3 (06:06→21:36)
[2016-05-10] MEDS: AZTREONAM 0.5 GM in NS 50 ML IV SCH ×3 (06:07→21:33)
[2016-05-10] MEDS: PANTOPRAZOLE SODIUM 40 MG in NS 100 ML IV SCH (07:51)
[2016-05-10] MEDS ORDERED: NS IV PRN (08:22)
[2016-05-10] MEDS ORDERED: AZTREONAM IV PRN (08:22)
[2016-05-10] MEDS: MICAFUNGIN NA 100 MG in NS 100 ML IV SCH (08:47)
--- NOTE | 2016-05-10 09:29 | SOAPPROG ---
SOAP Progress Note Assessment/Plan: Assessment/Plan 81yo M c duodenal perf s/p ex lap, repair and washout x2. Persistent leak - mental status unchanged. Perc drain yesterday, 70cc purulent fluid sent for cx. drainage has been minimal, will flush today and see if we can improve output. - abdomen is soft, previous drain sites with no drainage. - No HD today, TDc site c/d/i. and functioning well - Await cx, cont to follow closely. 05/06/16 13:11 05/07/16 12:00 05/07/16 12:01 05/08/16 12:18 05/09/16 09:10 05/10/16 09:26 Subjective: Altered, unresponsive. Objective: Vital Signs Temp Pulse Resp BP Pulse Ox 37.9 C 105 H 21 H 149/79 H 92 05/10/16 08:00 05/10/16 08:00 05/10/16 08:00 05/10/16 08:00 05/10/16 08:00 Microbiology 05/04/16 21:10 Blood Culture - Final Blood 05/04/16 20:00 Blood Culture - Final Blood 05/09/16 17:45 Gram Stain - Final Abdomen - Aspirate Laboratory Results 05/10/16 04:25 05/10/16 04:25 05/09/16 05/10/16 05/11/16 05:59 05:59 05:59 Intake Total 604 Output Total 1540 145 Balance -1540 459 PT 18.0 SEC (12.0-15.0) H 05/07/16 10:00 INR 1.49 (0.83-1.16) H 05/07/16 10:00 ICD10 Worksheet Patient Problems: Problems Problem Status Onset Hypoxia Acute Pneumonia Acute
--- NOTE | 2016-05-10 09:46 | SOAPPROG ---
KELLIE Progress Note Assessment/Plan: Assessment:Plan: ARF-oliguric -Hd yesterday -plan for Hd tomorrow -currently with muddy brown casts consistent with ATN CKD-likely has some underlying CKD -creatinine had been running 1.4 - 2 since his admit in February -levels prior to that are unknown -could represent ATN without recovery -hematuria, proteinuria and pyuria -has urine protein /urine creatinine ratio of 5 -urine eos pending -will send urine for culture -may have underlying acute GN -ANCA, SPEP and complements are normal 05/10/16 09:47 Subjective: delirious Objective: Vital Signs Temp Pulse Resp BP Pulse Ox 37.9 C 105 H 21 H 149/79 H 92 05/10/16 08:00 05/10/16 08:00 05/10/16 08:00 05/10/16 08:00 05/10/16 08:00 Microbiology 05/04/16 21:10 Blood Culture - Final Blood 05/04/16 20:00 Blood Culture - Final Blood 05/09/16 17:45 Gram Stain - Final Abdomen - Aspirate Laboratory Results 05/10/16 04:25 05/10/16 04:25 05/09/16 05/10/16 05/11/16 05:59 05:59 05:59 Intake Total 604 Output Total 1540 145 Balance -1540 459 PT 18.0 SEC (12.0-15.0) H 05/07/16 10:00 INR 1.49 (0.83-1.16) H 05/07/16 10:00 Physical Exam - Physical Exam General Appearance: no apparent distress EENT: normal ENT inspection Neck: normal inspection Respiratory: decreased breath sounds Cardiac/Chest: regular rate, rhythm, tachycardia Abdomen: normal bowel sounds, non-tender, other (drain and feeding tube in place ) Extremities: No swelling ICD10 Worksheet Patient Problems: Problems Problem Status Onset Hypoxia Acute Pneumonia Acute
--- NOTE | 2016-05-10 10:23 | PCMIDPN ---
Assessment/Plan: Assessment/Plan: * Polymicrobial abdominal abscess and peritonitis following duodenal perforation after ERCP for choledocholithiasis with associated E coli bacteremia : Status post percutaneous drainage yesterday yielding 70 mL of purulent fluid with polymicrobial Gram stain. Antibiotic modifications based on renal insufficiency and rash associated levofloxacin with current regimen of daptomycin, aztreonam, and micafungin. Will add Flagyl based on presence of gram variable rods in event anaerobes also contributing. Follow-up culture data as available. * Acute renal failure now on dialysis: Nephrology notes and findings reviewed. 05/10/16 10:19 Subjective: Patient remains confused. Status post percutaneous drainage of flank abscess yesterday with Gram stain showing polymicrobial findings. Objective: Vital Signs Temp Pulse Resp BP Pulse Ox 37.9 C 105 H 21 H 149/79 H 92 05/10/16 08:00 05/10/16 08:00 05/10/16 08:00 05/10/16 08:00 05/10/16 08:00 Microbiology 05/04/16 21:10 Blood Culture - Final Blood 05/04/16 20:00 Blood Culture - Final Blood 05/09/16 17:45 Gram Stain - Final Abdomen - Aspirate Laboratory Results 05/10/16 04:25 05/10/16 04:25 05/09/16 05/10/16 05/11/16 05:59 05:59 05:59 Intake Total 604 Output Total 1540 145 Balance -1540 459 Daptomycin # 2 Meropenem # 2 Right lower quadrant abscess with Gram-positive cocci, gram variable rods, and gram-negative rods - Physical Exam General Appearance: other (Confused) EENT: dry mucous membranes, No scleral icterus Respiratory: coarse breath sounds Cardiac/Chest: tachycardia Abdomen: non-tender, other (Less purulent appearing material in CHARLIE bulb), No distended Skin: rash (Rash over thighs and flanks less prominent; does have some erythema over right flank without warmth or tenderness) ICD10 Worksheet Patient Problems: Problems Problem Status Onset Hypoxia Acute Pneumonia Acute
[2016-05-10] MEDS ORDERED: D10W 1,000 ML IV PRN (11:22)
--- NOTE | 2016-05-10 11:23 | HOSPPROG ---
Hospitalist Progress Note Assessment/Plan: # acute encephalopathy - borderline airway protection; does not seem to need intubation - suspect d/t underlying processes # peritonitis - s/p multiple I&Ds - s/p perc drain placed yesterday by IR, irrigating drain today - duodenal perf s/p repair with omental patch - abx per ID with dapto/aztreonam/micafungin/flagyl # rash - follow # nutrition - start TPN # basilic vein superficial thrombosis - PICC moved to R arm, cont ppx [facility] # MILLA, oliguric - no HD today - lytes ok - w/u per renal # e. coli bacteremia d/t choledocholithiasis - resolved - biliary stents will need to eventually be addressed # pleural effusion - s/p thora # [facility] # FCFT ## high risk Subjective: still very confused Objective: Vital Signs Temp Pulse Resp BP Pulse Ox 37.9 C 105 H 23 H 152/89 H 91 L 05/10/16 08:00 05/10/16 10:00 05/10/16 10:00 05/10/16 10:00 05/10/16 10:00 Microbiology 05/04/16 21:10 Blood Culture - Final Blood 05/04/16 20:00 Blood Culture - Final Blood 05/09/16 17:45 Gram Stain - Final Abdomen - Aspirate Laboratory Results 05/10/16 04:25 05/10/16 04:25 05/09/16 05/10/16 05/11/16 05:59 05:59 05:59 Intake Total 604 Output Total 1540 145 Balance -1540 459 PT 18.0 SEC (12.0-15.0) H 05/07/16 10:00 INR 1.49 (0.83-1.16) H 05/07/16 10:00 Vitals reviewed confused, will follow some commands Regular rate and rhythm, no murmurs rubs or gallops No respiratory distress, lungs clear to auscultation bilaterally, no wheezes or rales Abdomen soft nontender, nondistended, no hepatosplenomegaly ICD10 Worksheet Patient Problems: Problems Problem Status Onset Hypoxia Acute Pneumonia Acute
[2016-05-10 12:03] LABS: INR 1.3 (0.83-1.16); PROTIME(PATIENT) 16.2 SEC (12.0-15.0)
[2016-05-10 12:04] LABS: APTT 38.3 SEC (23.0-38.0)
--- NOTE | 2016-05-10 12:08 | PDINTPN ---
Insurance Plan Specialist Progress Note Assessment/Plan: Assessment: 81 M with complicated recent PMH. Admitted early 04/2016 with cholelithiasis and sepsis/bacteremia (enterococcus and pseudomonas) and underwent ERCP complicated by duodenal perforation. He subsequently underwent surgical washout and repair in addition abx and was eventiually discharged to SNF. He was re-admitted with persistent bowel leak, an irregular fluid collection in the RUQ and MILLA/ CKD. He was initially stable but developed increasing encephalopathy and MILLA and required HD as of 05/07/16. Ir attempted percutaneous drainage but imaging was impaired 2/2 contrast leak from previous SBF. * Peritonitis with ?abscess and persistent leak from injured duodenum. His WBC high but stable and I suspect his encephalopathy is related. Drain irrigated today to try t oincrease drainage. I suspect his persistent leak can heal without surgical intervention and hopefully the percutaneous drainage will suffice for source control. Agree with ID plans to change to Dapto/aztreonam/ mycofungin/Flagyl for now and FU culture data from fluid collection. Apparently with AIN 2/2 Zosyn previously. Recheck Bcx today. * Encephalopathy- suspect related to infection since electrolytes normalized with HD, head CT without acute injury, no evidence of septic shock (nl BP), no arrythmias (some PVCs before HD; corrected after), no evidence for CVA, or meningitis. Airway seems stable, though agreeably tenuous. He has a strong gag reflex and ABGs have been fine. Holding off on intubation at the moment. * Rash- Improved. Possibly related to Levaquin- last dose was 05/07. * MILLA- continues with HD QOD and tolerating well. Presumed ATN, though cannot r/ o AIN per nephrology, urine eos pending. * PICC associated thrombosis in Right basilic vein- a superficial vessel- changed to left PICC 05/08. No direct AC indicated at this time. * Pleural effusion- right- tapped 05/07 but no labs sent. Appears stable and probably related to abdominal fluid collection. No chest tube required. Consider re-imaging once abdominal fluid collection drained. * FEN- currently with jejunostomy tube which is unlikely to communicate with duodenal leak, but would be cautious with its use. * Nutrition: None for days, and will be NPO for the near future. Plan: Start TPN. Continue antibiotics and dialysis. Follow cultures. 05/10/16 12:18 Subjective: Not answering questions. Objective: Vital Signs Temp Pulse Resp BP Pulse Ox 37.9 C 105 H 23 H 152/89 H 91 L 05/10/16 08:00 05/10/16 10:00 05/10/16 10:00 05/10/16 10:00 05/10/16 10:00 Microbiology 05/04/16 21:10 Blood Culture - Final Blood 05/04/16 20:00 Blood Culture - Final Blood 05/09/16 17:45 Gram Stain - Final Abdomen - Aspirate Laboratory Results 05/10/16 04:25 05/10/16 04:25 05/09/16 05/10/16 05/11/16 05:59 05:59 05:59 Intake Total 604 Output Total 1540 145 Balance -1540 459 PT 18.0 SEC (12.0-15.0) H 05/07/16 10:00 INR 1.49 (0.83-1.16) H 05/07/16 10:00 Abscess stain: GNR, gram variable rods. Physical Exam - Physical Exam General Appearance: alert EENT: normal ENT inspection Neck: full range of motion, normal inspection Respiratory: crackles, wheezing Cardiac/Chest: regular rate, rhythm, No edema, No gallop Abdomen: normal bowel sounds, non-tender, soft, other (Right drain with minimal serous fluid.) Skin: normal color, warm/dry Extremities: normal inspection Neuro/Psych: alert, other (eyes open, intermittantly trachs, not following commands.) ICD10 Worksheet Patient Problems: Problems Problem Status Onset Hypoxia Acute Pneumonia Acute
[2016-05-10] MEDS: TPN 1 EA BAG IV SCH (21:33)
[2016-05-11 04:03] LABS: ADD DIFF? YES; ADD MORPH? NO; ATYPICAL LYMPHOCYTE FLAG 30 (0-99); FRAGMENT RBC FLAG 0 (0-99); HEMATOCRIT 24.9 % (40.0-51.0); HEMOGLOBIN 8.2 g/dL (13.7-17.5); LIPEMIA HEMOLYSIS FLAG 80 (0-99); MEAN CELL HEMOGLOBIN 30.6 pg (27.9-34.1); MEAN CELL HEMOGLOBIN CONCENTR. 32.9 g/dL (32.4-36.7); MEAN CELL VOLUME 92.9 fL (81.5-99.8); MEAN PLATELET VOLUME 10.3 fL (8.7-11.7); PLATELET CLUMPS FLAG 10 (0-99); PLATELET COUNT 122 10^3/uL (150-400); RED BLOOD CELL COUNT 2.68 10^6/uL (4.40-6.38); RED CELL DISTRIBUTION WIDTH 17.3 % (11.5-15.2)
[2016-05-11 04:10] LABS: LEFT SHIFT FLG 110 (0-99)
[2016-05-11 04:11] LABS: ADD SCAN? NO
[2016-05-11 04:13] LABS: ALANINE AMINOTRANSFERASE 32 IU/L (21-72); ALBUMIN 2.2 g/dL (3.5-5.0); ALKALINE PHOSPHATASE 64 IU/L (38-126); ANION GAP 11 mEq/L (8-16); ASPARTATE AMINOTRANSFERASE 19 IU/L (17-59); BILIRUBIN,TOTAL 0.6 mg/dL (0.1-1.4); CALCIUM 8.9 mg/dL (8.5-10.4); CARBON DIOXIDE 25 mEq/l (22-31); CHLORIDE 107 mEq/L (97-110); CREATININE 6.4 mg/dL (0.7-1.3); GLOMERULAR FILTRATION RATE 8; GLUCOSE 152 mg/dL (70-100); POTASSIUM 3.9 mEq/L (3.5-5.2); SODIUM 143 mEq/L (134-144); TOTAL PROTEIN 5.2 g/dL (6.3-8.2)
[2016-05-11 04:15] LABS: INR 1.32 (0.83-1.16); PROTIME(PATIENT) 16.4 SEC (12.0-15.0)
[2016-05-11 04:52] LABS: PLATELET ESTIMATE DECREASED (ADEQ)
[2016-05-11] MEDS: HEPARIN 5,000 UNIT/0.5 ML SYR SC SCH ×3 (05:12→21:32)
[2016-05-11] MEDS: AZTREONAM 0.5 GM in NS 50 ML IV SCH ×3 (05:13→21:32)
[2016-05-11] MEDS ORDERED: HEPARIN 50,000 UNIT/10 ML VIAL ONE (09:00)
--- NOTE | 2016-05-11 09:40 | HOSPPROG ---
Hospitalist Progress Note Assessment/Plan: # acute encephalopathy - borderline airway protection; does not seem to need intubation - suspect d/t underlying processes - check MRI brain today # peritonitis - s/p multiple I&Ds - s/p perc drain placed yesterday by IR, irrigating drain today - may need drain study today - duodenal perf s/p repair with omental patch - abx per ID with dapto/aztreonam/micafungin/flagyl # rash - follow, occurred on levaquin # nutrition - start TPN; - would prefer not to use J-tube per Dr. Dunbar although communication with duodenal perf unlikely to communicate with J-tube # basilic vein superficial thrombosis - PICC moved to R arm, cont ppx SQH # MILLA, oliguric - likely HD today - lytes ok - w/u per renal # e. coli bacteremia d/t choledocholithiasis - resolved - biliary stents will need to eventually be addressed # pleural effusion - s/p thora # SQH # FCFT ## high risk Subjective: No significant change overnight Objective: Vital Signs Temp Pulse Resp BP Pulse Ox 37.4 C 77 24 H 131/61 H 94 05/11/16 08:00 05/11/16 08:00 05/11/16 08:00 05/11/16 08:00 05/11/16 08:00 Microbiology 05/09/16 17:45 Gram Stain - Final Abdomen - Aspirate 05/04/16 21:10 Blood Culture - Final Blood 05/04/16 20:00 Blood Culture - Final Blood Laboratory Results 05/11/16 03:42 05/11/16 03:42 05/10/16 05/11/16 05/12/16 05:59 05:59 05:59 Intake Total 604 1093 Output Total 145 135 Balance 459 958 PT 16.4 SEC (12.0-15.0) H 05/11/16 03:42 INR 1.32 (0.83-1.16) H 05/11/16 03:42 Lying in bed, appears comfortable Regular rate and rhythm, no murmurs rubs or gallops Lungs clear to auscultation bilaterally, no wheezes rales or rhonchi; appears to protect his airway Abdomen witj J-tube and CHARLIE drain in place; soft, grimaces with deep palpation on the right side; mild bilat LE edema ICD10 Worksheet Patient Problems: Problems Problem Status Onset Hypoxia Acute Pneumonia Acute
[2016-05-11] MEDS: PANTOPRAZOLE SODIUM 40 MG in NS 100 ML IV SCH (10:04)
[2016-05-11] MEDS: MICAFUNGIN NA 100 MG in NS 100 ML IV SCH (10:04)
[2016-05-11] MEDS: DAPTOmycin 540 MG in NS 100 ML IV SCH ×2 (11:24→16:57)
--- NOTE | 2016-05-11 12:38 | PCMIDPN ---
Assessment/Plan: Assessment/Plan: 1. Sepsis 04/15 to Peritonitis/abdominal abscess s/p CHARLIE drain placement, ongoing leak: - CHARLIE drain placed on 05/09/16. Not much out overnight but RN flushed today and was able to get more drainage out of around 100cc thus far (purulent material, brownish) -Currently on Dapto, Aztreonam, Flagyl, and micafungin for broad coverage. -Cx from recent drain in progress. GS with GNR, GVR, and cx: E. fecalis, and GPR so far. - PRevious cx with E. fecalis and PsA from abd abscess. -wbc improved -Mental status-still with encephalopathy. For MRI later today -blood cx from 05/04 ngtd - LFt stable today. will check CPK since on Dapto. Will add to blood work already in lab if possible. -Care coordinated with RN -Daughter updated on results, plan of care 2. Rash from levaquin Meds -dapto 540mg q48-05/09/16 -aztreonam 500mg q8-05/09/16 -flagyl 500mg q8- -micafungin 100mg daily- 05/09/16 Subjective: Afebrile. OPens eyes but not much interactin otherwise. no dialysis at present. CHARLIE drain not putting out much from overnight and into today. RN did flush with 10cc and since then has had out around 100c of chocolate milk in appearance thick drainage. Daughter at bedside.on tpn Objective: Vital Signs Temp Pulse Resp BP Pulse Ox 37.4 C 72 15 129/72 H 91 L 05/11/16 08:00 05/11/16 10:00 05/11/16 10:00 05/11/16 10:00 05/11/16 10:00 Microbiology 05/09/16 17:45 Gram Stain - Final Abdomen - Aspirate 05/04/16 21:10 Blood Culture - Final Blood 05/04/16 20:00 Blood Culture - Final Blood Laboratory Results 05/11/16 03:42 05/11/16 03:42 05/10/16 05/11/16 05/12/16 05:59 05:59 05:59 Intake Total 604 1093 Output Total 145 135 Balance 459 958 - Physical Exam General Appearance: other (eyes open but not interactive.) Respiratory: coarse breath sounds (mild) Cardiac/Chest: regular rate, rhythm Extremities: No swelling Abdomen: normal bowel sounds, non-tender, soft, other (RLQ CHARLIE drain present. jejunostomy tube noted. ), No distended ICD10 Worksheet Patient Problems: Problems Problem Status Onset Hypoxia Acute Pneumonia Acute
[2016-05-11 14:26] LABS: RANDOM URINE PROTEIN 256 mg/dL
[2016-05-11] MEDS ORDERED: PARAMETERS MISC PRN (14:38)
[2016-05-11] MEDS ORDERED: D50W 25 GM/50 ML SYR IVP PRN (14:38)
[2016-05-11] MEDS: INSULIN REGULAR, HUMAN 100 UNIT/1 ML VIAL STANDARD SC SCH ×2 (15:47→17:58)
--- NOTE | 2016-05-11 17:25 | PDINTPN ---
Press Clippings Cutter And Paster Progress Note Assessment/Plan: Assessment: 81 M with complicated recent PMH. Admitted early 04/2016 with cholelithiasis and sepsis/bacteremia (enterococcus and pseudomonas) and underwent ERCP complicated by duodenal perforation. He subsequently underwent surgical washout and repair in addition abx and was eventually discharged to SNF. He was re-admitted with persistent bowel leak, an irregular fluid collection in the RUQ and MILLA/ CKD. He was initially stable but developed increasing encephalopathy and MILLA and required HD as of 05/07/16. Ir attempted percutaneous drainage but imaging was impaired 2/ contrast leak from previous SBF. * Peritonitis with ?abscess and persistent leak from injured duodenum. His WBC high but stable and I suspect his encephalopathy is related. Drain irrigated to try to increase drainage. I suspect his persistent leak can heal without surgical intervention and hopefully the percutaneous drainage will suffice for source control. Agree with ID plans to change to Dapto/aztreonam/mycofungin/ Flagyl for now and FU culture data from fluid collection. Apparently with AIN 2/ 2 Zosyn previously. Recheck Bcx today. * Encephalopathy- suspect related to infection since electrolytes normalized with HD, head CT without acute injury, no evidence of septic shock (nl BP), no arrythmias (some PVCs before HD; corrected after), no evidence for CVA, or meningitis. Airway seems stable, though agreeably tenuous. He has a strong gag reflex and ABGs have been fine. Holding off on intubation at the moment. * Rash- Improved. Possibly related to Levaquin- last dose was 05/07. * MILLA- continues with HD QOD and tolerating well. Presumed ATN, though cannot r/ o AIN per nephrology, urine eos pending. * PICC associated thrombosis in Right basilic vein- a superficial vessel- changed to left PICC 05/08. No direct AC indicated at this time. * Pleural effusion- right- tapped 05/07 but no labs sent. Appears stable and probably related to abdominal fluid collection. No chest tube required. Consider re-imaging once abdominal fluid collection drained. * FEN- currently with jejunostomy tube which is unlikely to communicate with duodenal leak, but would be cautious with its use. * Nutrition: None for days, and will be NPO for the near future. Plan: Continue TPN. Continue antibiotics and dialysis. Follow cultures. 05/11/16 17:25 05/11/16 17:26 Subjective: Not responding to questions. Objective: Vital Signs Temp Pulse Resp BP Pulse Ox 36.9 C 72 19 137/68 H 90 L 05/11/16 12:00 05/11/16 14:00 05/11/16 14:00 05/11/16 14:00 05/11/16 15:30 Microbiology 05/09/16 17:45 Gram Stain - Final Abdomen - Aspirate Laboratory Results 05/11/16 03:42 05/11/16 03:42 05/10/16 05/11/16 05/12/16 05:59 05:59 05:59 Intake Total 604 1093 Output Total 145 135 100 Balance 459 958 -100 PT 16.4 SEC (12.0-15.0) H 05/11/16 03:42 INR 1.32 (0.83-1.16) H 05/11/16 03:42 Physical Exam - Physical Exam General Appearance: alert, no apparent distress EENT: normal ENT inspection Neck: normal inspection Respiratory: crackles (bases) Cardiac/Chest: regular rate, rhythm, edema (1+) Abdomen: non-tender, soft, No normal bowel sounds (diminished) Skin: normal color, warm/dry Extremities: normal inspection Neuro/Psych: other (opens eyes and track to voice, but not following commands.) ICD10 Worksheet Patient Problems: Problems Problem Status Onset Hypoxia Acute Pneumonia Acute
[2016-05-11] MEDS ORDERED: FUROSEMIDE 100 MG/10 ML VIAL IVP ONE (18:27)
--- NOTE | 2016-05-11 18:27 | SOAPPROG ---
SOAP Progress Note Assessment/Plan: Assessment: 1. arf: atn on sediment, no convincing evidence of recovery yet. Dialyzed today , next tentatively . 2. anemia: transfused 3. Overload: will give a dose of lasix to see if he responds at all to this. Plan: 05/05/16 18:21 05/11/16 18:23 Subjective: Uneventful hd earlier today. Objective: Vital Signs Temp Pulse Resp BP Pulse Ox 36.9 C 73 17 147/68 H 96 05/11/16 12:00 05/11/16 18:00 05/11/16 18:00 05/11/16 18:00 05/11/16 18:00 Microbiology 05/09/16 17:45 Gram Stain - Final Abdomen - Aspirate Laboratory Results 05/11/16 03:42 05/11/16 03:42 05/10/16 05/11/16 05/12/16 05:59 05:59 05:59 Intake Total 604 1093 622 Output Total 145 135 760 Balance 459 958 -138 PT 16.4 SEC (12.0-15.0) H 05/11/16 03:42 INR 1.32 (0.83-1.16) H 05/11/16 03:42 Physical Exam - Physical Exam General Appearance: other (ill appearing) Respiratory: rhonchi (anteriorly) Cardiac/Chest: regular rate, rhythm Extremities: swelling (dependent/LE) ICD10 Worksheet Patient Problems: Problems Problem Status Onset Hypoxia Acute Pneumonia Acute
[2016-05-11] MEDS: TPN 1 EA BAG IV SCH (21:32)
[2016-05-12] MEDS: INSULIN REGULAR, HUMAN 100 UNIT/1 ML VIAL STANDARD SC SCH ×4 (00:37→18:11)
[2016-05-12 04:27] LABS: INR 1.33 (0.83-1.16); PROTIME(PATIENT) 16.5 SEC (12.0-15.0)
[2016-05-12 04:28] LABS: APTT 39.4 SEC (23.0-38.0)
[2016-05-12 04:31] LABS: ADD DIFF? YES; ADD MORPH? NO; ATYPICAL LYMPHOCYTE FLAG 40 (0-99); FRAGMENT RBC FLAG 0 (0-99); HEMATOCRIT 24.4 % (40.0-51.0); LIPEMIA HEMOLYSIS FLAG 80 (0-99); MEAN CELL HEMOGLOBIN CONCENTR. 32.8 g/dL (32.4-36.7); MEAN CELL VOLUME 91.4 fL (81.5-99.8); MEAN PLATELET VOLUME 9.4 fL (8.7-11.7); PLATELET CLUMPS FLAG 20 (0-99); PLATELET COUNT 100 10^3/uL (150-400); RED BLOOD CELL COUNT 2.67 10^6/uL (4.40-6.38); RED CELL DISTRIBUTION WIDTH 17.1 % (11.5-15.2)
[2016-05-12 04:32] LABS: ADD SCAN? NO; LEFT SHIFT FLG 120 (0-99)
[2016-05-12 04:37] LABS: ALANINE AMINOTRANSFERASE 28 IU/L (21-72); ALBUMIN 2.1 g/dL (3.5-5.0); ALKALINE PHOSPHATASE 58 IU/L (38-126); ANION GAP 8 mEq/L (8-16); ASPARTATE AMINOTRANSFERASE 20 IU/L (17-59); BILIRUBIN,TOTAL 0.6 mg/dL (0.1-1.4); CALCIUM 8.5 mg/dL (8.5-10.4); CARBON DIOXIDE 28 mEq/l (22-31); CHLORIDE 103 mEq/L (97-110); CREATININE 4.3 mg/dL (0.7-1.3); GLOMERULAR FILTRATION RATE 13; GLUCOSE 157 mg/dL (70-100); MAGNESIUM 1.8 mg/dL (1.6-2.3); POTASSIUM 3.5 mEq/L (3.5-5.2); SODIUM 139 mEq/L (134-144); TOTAL PROTEIN 5.1 g/dL (6.3-8.2)
[2016-05-12 05:17] LABS: MACROCYTES 1+; PLATELET ESTIMATE DECREASED (ADEQ); TARGET CELLS 1+
[2016-05-12] MEDS: AZTREONAM 0.5 GM in NS 50 ML IV SCH ×3 (05:51→23:56)
[2016-05-12] MEDS: HEPARIN 5,000 UNIT/0.5 ML SYR SC SCH (05:51)
[2016-05-12] MEDS: PANTOPRAZOLE SODIUM 40 MG in NS 100 ML IV SCH (08:40)
[2016-05-12] MEDS: MICAFUNGIN NA 100 MG in NS 100 ML IV SCH (09:19)
--- NOTE | 2016-05-12 09:19 | SOAPPROG ---
SOAP Progress Note Assessment/Plan: Assessment: 1. MILLA. Sediment consistent with ATN. UOP improved with lasix. May be starting to recover. Will plan dialysis tomorrow. Would leave amado for now as had difficult placement. 2. Abdominal abscess. Continue broad spectrum abx, antifungals and drain. 3. Malnutrition. Continue tpn. 4. AMS. Suspect related to infection. Possible improving? Head MRI unremarkable. Plan: 05/12/16 09:17 Subjective: Head MRI done yesterday, showed chronic SV changes. Still remains very confused. Had dialysis yesterday. Objective: Vital Signs Temp Pulse Resp BP Pulse Ox 36.7 C 74 92 H 135/67 H 50 L 05/12/16 07:50 05/12/16 07:50 05/12/16 07:50 05/12/16 07:50 05/12/16 07:50 Microbiology 05/09/16 17:45 Gram Stain - Final Abdomen - Aspirate Laboratory Results 05/12/16 04:10 05/12/16 04:10 05/11/16 05/12/16 05/13/16 05:59 05:59 05:59 Intake Total 1093 1422 Output Total 135 980 Balance 958 442 PT 16.5 SEC (12.0-15.0) H 05/12/16 04:10 INR 1.33 (0.83-1.16) H 05/12/16 04:10 Confused, awake. Did partially seem to initiate handshake when I offered hand. Smiled. RRR, no m/g/r CTAB Abdom soft, nontender. Drain with chocolate milk appearing liquid 2+ pitting LE edema ICD10 Worksheet Patient Problems: Problems Problem Status Onset Hypoxia Acute Pneumonia Acute
--- NOTE | 2016-05-12 11:00 | HOSPPROG ---
Hospitalist Progress Note Assessment/Plan: # acute encephalopathy - actually improved today - suspect delirium d/t underlying processes - MRI brain negative # peritonitis - s/p multiple I&Ds - s/p perc drain placed by IR, better output with irrigation - duodenal perf s/p repair with omental patch - abx per ID with dapto/aztreonam/micafungin/flagyl # rash - follow, occurred on levaquin # nutrition - start TPN; - would prefer not to use J-tube per Dr. Dunbar although communication with duodenal perf unlikely to communicate with J-tube # basilic vein superficial thrombosis - PICC moved to R arm, cont ppx SQH # MILLA, oliguric, likely ATN - HD yesterday; good response to Lasix yesterday - lytes ok - w/u per renal # e. coli bacteremia d/t choledocholithiasis - resolved - biliary stents will need to eventually be addressed # pleural effusion - s/p thora # SQH # FCFT ## high risk Subjective: More communicative; speaking in full sentences Objective: Vital Signs Temp Pulse Resp BP Pulse Ox 36.7 C 74 92 H 135/67 H 50 L 05/12/16 07:50 05/12/16 07:50 05/12/16 07:50 05/12/16 07:50 05/12/16 07:50 Microbiology 05/09/16 17:45 Gram Stain - Final Abdomen - Aspirate Laboratory Results 05/12/16 04:10 05/12/16 04:10 05/11/16 05/12/16 05/13/16 05:59 05:59 05:59 Intake Total 1093 1422 Output Total 135 980 Balance 958 442 PT 16.5 SEC (12.0-15.0) H 05/12/16 04:10 INR 1.33 (0.83-1.16) H 05/12/16 04:10 Vitals reviewed Pleasant, no acute distress Regular rate and rhythm, no murmurs rubs or gallops No respiratory distress, some rhonchi present, no rales or wheezes Abdomen soft , tender to palpation right side; J-tube in place; CHARLIE drain with purulent drainage ICD10 Worksheet Patient Problems: Problems Problem Status Onset Hypoxia Acute Pneumonia Acute
--- NOTE | 2016-05-12 11:39 | PCMIDPN ---
Assessment/Plan: Assessment/Plan: * Polymicrobial abdominal abscess and peritonitis following duodenal perforation after ERCP for choledocholithiasis with associated E coli bacteremia : Status post percutaneous drainage yesterday yielding 70 mL of purulent fluid with polymicrobial Gram stain and culture showing growth of Enterococcus faecalis (daptomycin susceptible) and lactobacillus. Antibiotic modifications based on renal insufficiency and rash associated levofloxacin with current regimen of daptomycin, aztreonam, metronidazole and micafungin. Have asked lab to send out lactobacillus isolate for daptomycin susceptibility. * Acute renal failure now on dialysis * Thrombocytopenia: Patient with progressive decrease in platelet count. Query if this could be related to heparin. Antibiotics other consideration although think this will be less likely. Findings reviewed with Dr. Wu. 05/12/16 11:32 Subjective: Patient more alert today and conversant. Objective: Vital Signs Temp Pulse Resp BP Pulse Ox 36.7 C 67 15 155/79 H 95 05/12/16 07:50 05/12/16 10:00 05/12/16 10:00 05/12/16 10:00 05/12/16 10:00 Microbiology 05/10/16 13:55 Urine Culture - Final Urine,Catheterized 05/09/16 17:45 Gram Stain - Final Abdomen - Aspirate Laboratory Results 05/12/16 04:10 05/12/16 04:10 05/11/16 05/12/16 05/13/16 05:59 05:59 05:59 Intake Total 1093 1422 Output Total 135 980 Balance 958 442 Daptomycin # 4: Aztreonam # 4 Metronidazole # 2 Micafungin # 4 Abscess cultures with growth of enterococcus faecalis and lactobacillus - Physical Exam General Appearance: alert, no apparent distress EENT: No scleral icterus Respiratory: other (Decreased breath sounds bilateral bases) Abdomen: non-tender, other (CHARLIE with purulent output), No distended ICD10 Worksheet Patient Problems: Problems Problem Status Onset Hypoxia Acute Pneumonia Acute
--- NOTE | 2016-05-12 14:43 | PDINTPN ---
Psychological Aide Progress Note Assessment/Plan: Assessment: 81 M with complicated recent PMH. Admitted early 04/2016 with cholelithiasis and sepsis/bacteremia (enterococcus and pseudomonas) and underwent ERCP complicated by duodenal perforation. He subsequently underwent surgical washout and repair in addition abx and was eventually discharged to SNF. He was re-admitted with persistent bowel leak, an irregular fluid collection in the RUQ and MILLA/ CKD. He was initially stable but developed increasing encephalopathy and MILLA and required HD as of 05/07/16. Ir attempted percutaneous drainage but imaging was impaired 2/ contrast leak from previous SBF. * Peritonitis with ?abscess and persistent leak from injured duodenum. His WBC high but stable and I suspect his encephalopathy is related. Drain irrigation is helping to increase drainage. I suspect his persistent leak can heal without surgical intervention and hopefully the percutaneous drainage will suffice for source control. Agree with ID plans to change to Dapto/aztreonam/mycofungin/ Flagyl for now and FU culture data from fluid collection. Apparently with AIN 2/ 2 Zosyn previously. Repeat Blood Cx negative. * Encephalopathy- suspect related to infection since electrolytes normalized with HD, head CT without acute injury, no evidence of septic shock (nl BP), no arrythmias (some PVCs before HD; corrected after), no evidence for CVA, or meningitis. Improving. * Rash- Improved. Possibly related to Levaquin- last dose was 05/07. * MILLA- continues with HD QOD and tolerating well. Presumed ATN. * PICC associated thrombosis in Right basilic vein- a superficial vessel- changed to left PICC 05/08. No direct AC indicated at this time. * Pleural effusion- right- tapped 05/07 but no labs sent. Appears stable and probably related to abdominal fluid collection. No chest tube required. Consider re-imaging once abdominal fluid collection drained. * FEN- currently with jejunostomy tube which is unlikely to communicate with duodenal leak, but would be cautious with its use. * Nutrition: On TPN Plan: Continue TPN. Continue antibiotics and dialysis. Increase activity as tolerated. Change to SDU status. 05/12/16 14:46 Subjective: A bit more alert, speaking and answering some questions earlier, but not now. Objective: Vital Signs Temp Pulse Resp BP Pulse Ox 36.9 C 72 14 141/74 H 99 05/12/16 12:00 05/12/16 12:00 05/12/16 12:00 05/12/16 12:00 05/12/16 12:00 Microbiology 05/09/16 17:45 Gram Stain - Final Abdomen - Aspirate 05/10/16 13:55 Urine Culture - Final Urine,Catheterized Laboratory Results 05/12/16 04:10 05/12/16 04:10 05/11/16 05/12/16 05/13/16 05:59 05:59 05:59 Intake Total 1093 1422 Output Total 135 980 Balance 958 442 PT 16.5 SEC (12.0-15.0) H 05/12/16 04:10 INR 1.33 (0.83-1.16) H 05/12/16 04:10 Physical Exam - Physical Exam General Appearance: alert, no apparent distress EENT: normal ENT inspection Neck: normal inspection Respiratory: lungs clear, normal breath sounds, respiratory distress Cardiac/Chest: regular rate, rhythm, No edema Abdomen: normal bowel sounds, non-tender, soft Skin: normal color, warm/dry Extremities: normal range of motion, non-tender Neuro/Psych: alert, No oriented x 3 ICD10 Worksheet Patient Problems: Problems Problem Status Onset Hypoxia Acute Pneumonia Acute
--- NOTE | 2016-05-12 17:29 | SOAPPROG ---
SOAP Progress Note Assessment/Plan: Assessment/Plan: 81yo M c duodenal perf s/p ex lap, repair and washout x2. Persistent leak Seen and examined c Dr. Salcedo. Minimal drainage despite flushing. Afebrile. Abdomen is soft. Enterococcus and lactobacillus on abdominal aspirate culture-- ID following. May need further HD. 05/12/16 17:28 Objective: Vital Signs Temp Pulse Resp BP Pulse Ox 37.0 C 80 15 149/75 H 95 05/12/16 16:00 05/12/16 16:00 05/12/16 16:00 05/12/16 16:00 05/12/16 16:00 Microbiology 05/09/16 17:45 Gram Stain - Final Abdomen - Aspirate 05/10/16 13:55 Urine Culture - Final Urine,Catheterized Laboratory Results 05/12/16 04:10 05/12/16 04:10 05/11/16 05/12/16 05/13/16 05:59 05:59 05:59 Intake Total 1093 1422 Output Total 135 980 Balance 958 442 PT 16.5 SEC (12.0-15.0) H 05/12/16 04:10 INR 1.33 (0.83-1.16) H 05/12/16 04:10 ICD10 Worksheet Patient Problems: Problems Problem Status Onset Hypoxia Acute Pneumonia Acute
[2016-05-12] MEDS: APIXABAN 2.5 MG TAB PO SCH (22:29)
[2016-05-12] MEDS: TPN 1 EA BAG IV SCH (22:33)
[2016-05-13] MEDS: INSULIN REGULAR, HUMAN 100 UNIT/1 ML VIAL STANDARD SC SCH ×4 (00:36→18:44)
[2016-05-13 06:28] LABS: ADD DIFF? YES; ADD MORPH? NO; ATYPICAL LYMPHOCYTE FLAG 30 (0-99); FRAGMENT RBC FLAG 0 (0-99); HEMATOCRIT 23.5 % (40.0-51.0); HEMOGLOBIN 7.7 g/dL (13.7-17.5); LIPEMIA HEMOLYSIS FLAG 80 (0-99); MEAN CELL HEMOGLOBIN 30.2 pg (27.9-34.1); MEAN CELL HEMOGLOBIN CONCENTR. 32.8 g/dL (32.4-36.7); MEAN CELL VOLUME 92.2 fL (81.5-99.8); MEAN PLATELET VOLUME 10.4 fL (8.7-11.7); PLATELET CLUMPS FLAG 0 (0-99); PLATELET COUNT 113 10^3/uL (150-400); RED BLOOD CELL COUNT 2.55 10^6/uL (4.40-6.38)
[2016-05-13 06:30] LABS: ADD SCAN? NO; LEFT SHIFT FLG 120 (0-99)
[2016-05-13 06:38] LABS: INR 1.41 (0.83-1.16); PROTIME(PATIENT) 17.2 SEC (12.0-15.0)
[2016-05-13 06:51] LABS: APTT 38.2 SEC (23.0-38.0)
[2016-05-13 06:56] LABS: ALANINE AMINOTRANSFERASE 26 IU/L (21-72); ALBUMIN 2.1 g/dL (3.5-5.0); ALKALINE PHOSPHATASE 53 IU/L (38-126); ANION GAP 9 mEq/L (8-16); ASPARTATE AMINOTRANSFERASE 16 IU/L (17-59); BILIRUBIN,TOTAL 0.6 mg/dL (0.1-1.4); CALCIUM 8.2 mg/dL (8.5-10.4); CARBON DIOXIDE 26 mEq/l (22-31); CHLORIDE 105 mEq/L (97-110); CREATININE 5.4 mg/dL (0.7-1.3); GLOMERULAR FILTRATION RATE 10; GLUCOSE 133 mg/dL (70-100); MAGNESIUM 1.7 mg/dL (1.6-2.3); POTASSIUM 3.5 mEq/L (3.5-5.2); SODIUM 140 mEq/L (134-144); TOTAL PROTEIN 5.1 g/dL (6.3-8.2)
[2016-05-13 07:02] LABS: POLYCHROMASIA 1+
[2016-05-13 07:03] LABS: HYPOCHROMIA 1+; PLATELET ESTIMATE DECREASED (ADEQ)
--- NOTE | 2016-05-13 10:18 | SOAPPROG ---
SOAP Progress Note Assessment/Plan: Assessment/Plan: MILLA: oliguric and likely ATN, now with increasing UOP. He responded to Lasix the other day, which bodes well for recovery. Cr still increasing. - HD today. - Next HD tentatively on Tuesday if needed. - Will give dose of Lasix tomorrow. - Will continue to monitor her renal function closely for recovery. - Avoid MOM, morphine, NSAIDs, contrast, aminoglycosides, fleets, and other nephrotoxins. Hypervolemia: will give Lasix 80mg IV x1 tomorrow. Anemia: slowly downtrending to 7.7 today, ok to transfuse. Subjective: No acute events overnight. Pt states he is having pain throughout his body. He is breathing comfortably for now. Objective: Vital Signs Temp Pulse Resp BP Pulse Ox 36.9 C 81 19 149/75 H 95 05/13/16 07:00 05/13/16 04:00 05/13/16 04:00 05/13/16 04:00 05/13/16 04:00 Microbiology 05/09/16 17:45 Gram Stain - Final Abdomen - Aspirate 05/10/16 13:55 Urine Culture - Final Urine,Catheterized Laboratory Results 05/13/16 06:20 05/13/16 06:20 05/12/16 05/13/16 05/14/16 05:59 05:59 05:59 Intake Total 1422 2123 Output Total 980 390 200 Balance 442 1733 -200 PT 17.2 SEC (12.0-15.0) H 05/13/16 06:20 INR 1.41 (0.83-1.16) H 05/13/16 06:20 General: alert and oriented, no acute distress Eyes: EOMI, PERRL OP: Clear CV: RRR Resp: nonlabored respirations on NC at 4L Abd: Soft, NT, drain in place with pus Ext: +1 edema BLE Neuro: CN II-XII grossly intact, no asterixis Psych: cooperative, appropriate mood and affect ICD10 Worksheet Patient Problems: Problems Problem Status Onset Hypoxia Acute Pneumonia Acute
--- NOTE | 2016-05-13 10:53 | PDINTPN ---
Unit Assembler Progress Note Assessment/Plan: Assessment: 81 M with complicated recent PMH. Admitted early 04/2016 with cholelithiasis and sepsis/bacteremia (enterococcus and pseudomonas) and underwent ERCP complicated by duodenal perforation. He subsequently underwent surgical washout and repair in addition abx and was eventually discharged to SNF. He was re-admitted with persistent bowel leak, an irregular fluid collection in the RUQ and MILLA/ CKD. He was initially stable but developed increasing encephalopathy and MILLA and required HD as of 05/07/16. Ir attempted percutaneous drainage but imaging was impaired 2/ contrast leak from previous SBF. * Peritonitis with ?abscess and persistent leak from injured duodenum. His WBC is trending down and I suspect his encephalopathy, now improved, was related. Drain irrigation is helping to increase drainage. I suspect his persistent leak can heal without surgical intervention and hopefully the percutaneous drainage will suffice for source control. Currently on Dapto/aztreonam/mycofungin/Flagyl for now and FU culture data from fluid collection. Apparently with AIN 2/2 Zosyn previously. Repeat Blood Cx negative. * Encephalopathy- suspect related to infection since electrolytes normalized with HD, head CT without acute injury. Improving. * Rash- Resolved. Possibly related to Levaquin- last dose was 05/07. * MILLA- continues with HD QOD and tolerating well. Presumed ATN. * PICC associated thrombosis in Right basilic vein- a superficial vessel- changed to left PICC 05/08. No direct AC indicated at this time. * Pleural effusion- right- tapped 05/07 but no labs sent. Appears stable and probably related to abdominal fluid collection. No chest tube required. Will re- image now that abdominal fluid collection drained. * FEN- currently with jejunostomy tube which is unlikely to communicate with duodenal leak, but would be cautious with its use. * Nutrition: On TPN * Thrombocytopenia: ? Due to acute illness vs HIT. Up a bit since stopping heparin yesterday. HIT antibodies pending. Plan: Continue TPN. Continue antibiotics, abscess drainage, and dialysis. Follow platelets. Re-check CXR. Increase activity as tolerated. Change to Medsurg status. 05/13/16 10:55 Subjective: Feels OK, c/o sharp pain in his body, no specific location Objective: Vital Signs Temp Pulse Resp BP Pulse Ox 36.9 C 81 19 149/75 H 95 05/13/16 07:00 05/13/16 04:00 05/13/16 04:00 05/13/16 04:00 05/13/16 04:00 Microbiology 05/09/16 17:45 Gram Stain - Final Abdomen - Aspirate 05/10/16 13:55 Urine Culture - Final Urine,Catheterized Laboratory Results 05/13/16 06:20 05/13/16 06:20 05/12/16 05/13/16 05/14/16 05:59 05:59 05:59 Intake Total 1422 2123 Output Total 980 390 200 Balance 442 1733 -200 PT 17.2 SEC (12.0-15.0) H 05/13/16 06:20 INR 1.41 (0.83-1.16) H 05/13/16 06:20 Physical Exam - Physical Exam General Appearance: alert, no apparent distress EENT: normal ENT inspection Neck: normal inspection Respiratory: lungs clear, normal breath sounds Cardiac/Chest: regular rate, rhythm, No edema Abdomen: normal bowel sounds, non-tender, soft Skin: normal color, warm/dry Extremities: non-tender, No normal inspection Neuro/Psych: alert, normal mood/affect, oriented x 3 ICD10 Worksheet Patient Problems: Problems Problem Status Onset Hypoxia Acute Pneumonia Acute
[2016-05-13] MEDS: APIXABAN 2.5 MG TAB PO SCH ×2 (11:00→18:39)
[2016-05-13] MEDS: AZTREONAM 0.5 GM in NS 50 ML IV SCH ×3 (11:27→22:14)
[2016-05-13] MEDS ORDERED: LIDOCAINE 1% 30 ML SDV ONE (12:04)
[2016-05-13] MEDS: PANTOPRAZOLE SODIUM 40 MG in NS 100 ML IV SCH (12:27)
[2016-05-13] MEDS: MICAFUNGIN NA 100 MG in NS 100 ML IV SCH (13:04)
--- NOTE | 2016-05-13 13:10 | SOAPPROG ---
SOAP Progress Note Assessment/Plan: Assessment/Plan 81yo M c duodenal perf s/p ex lap, repair and washout x2. Persistent leak - Mental status markedly improved from previous. Able to answer questions, and state that he has no abd pain - CHARLIE continue to drain purulent fluid, cont to irrigate and aspirate each shift. Likely study next week - Cont strict NPO, no pills or anythin gby mouth. Cont TPN, all meds IV - CHARLIE site had some bleeding around it today, I took down the dressing and stitched the drain in place with a pursestring suture - Making progress 05/06/16 13:11 05/07/16 12:00 05/07/16 12:01 05/08/16 12:18 05/09/16 09:10 05/10/16 09:26 05/13/16 13:09 Subjective: Much more alert than he has been. Denies abd pain Objective: Vital Signs Temp Pulse Resp BP Pulse Ox 37.0 C 80 18 157/86 H 96 05/13/16 12:00 05/13/16 12:00 05/13/16 12:00 05/13/16 12:00 05/13/16 12:00 Microbiology 05/09/16 17:45 Gram Stain - Final Abdomen - Aspirate 05/10/16 13:55 Urine Culture - Final Urine,Catheterized Laboratory Results 05/13/16 06:20 05/13/16 06:20 05/12/16 05/13/16 05/14/16 05:59 05:59 05:59 Intake Total 1422 2123 Output Total 980 390 200 Balance 442 1733 -200 PT 17.2 SEC (12.0-15.0) H 05/13/16 06:20 INR 1.41 (0.83-1.16) H 05/13/16 06:20 ICD10 Worksheet Patient Problems: Problems Problem Status Onset Hypoxia Acute Pneumonia Acute
[2016-05-13] MEDS: IPRATROPIUM/ALBUTEROL 3 ML DEYVIAL IH PRN (14:32)
--- NOTE | 2016-05-13 15:12 | HOSPPROG ---
Hospitalist Progress Note Assessment/Plan: # acute encephalopathy - improving every day - suspect delirium d/t renal failure among other acute issues - MRI brain negative # peritonitis - s/p multiple I&Ds - s/p perc drain placed by IR, better output with irrigation - duodenal perf s/p repair with omental patch - abx per ID with dapto/aztreonam/micafungin/flagyl # rash - follow, occurred on levaquin # nutrition - continue TPN; - would prefer not to use J-tube per Dr. Dunbar although communication with duodenal perf unlikely to communicate with J-tube # basilic vein superficial thrombosis - PICC moved to R arm, cont ppx SQH # MILLA, oliguric, likely ATN - HD yesterday; good response to Lasix yesterday - lytes ok - w/u per renal # e. coli bacteremia d/t choledocholithiasis - resolved - biliary stents will need to eventually be addressed # pleural effusion - s/p thora * may be reaccumulating # pulmonary edema/ fluid overload * per Nephrology # thrombocytopenia * hit panel pending * holding heparin * unable to take Eliquis due to NPO status # FCFT Subjective: mental status seems to be improving Objective: Vital Signs Temp Pulse Resp BP Pulse Ox 37.0 C 78 18 157/86 H 96 05/13/16 12:00 05/13/16 14:08 05/13/16 14:08 05/13/16 12:00 05/13/16 14:08 Microbiology 05/09/16 17:45 Gram Stain - Final Abdomen - Aspirate 05/10/16 13:55 Urine Culture - Final Urine,Catheterized Laboratory Results 05/13/16 06:20 05/13/16 06:20 05/12/16 05/13/16 05/14/16 05:59 05:59 05:59 Intake Total 1422 2123 Output Total 980 390 200 Balance 442 1733 -200 PT 17.2 SEC (12.0-15.0) H 05/13/16 06:20 INR 1.41 (0.83-1.16) H 05/13/16 06:20 discussed with pulmonology tele personally viewed interpreted normal sinus rhythm - Physical Exam Constitutional: no apparent distress, appears nourished, not in pain Eyes: anicteric sclera, EOMI Ears, Nose, Mouth, Throat: moist mucous membranes, hearing normal, ears appear normal Cardiovascular: regular rate and rhythym, no murmur, rub, or gallop Respiratory: no respiratory distress, rhonchi ( scattered) Gastrointestinal: soft, non-tender abdomen, other ( decreased bowel sounds. CHARLIE drain with some blood around site) Skin: warm Psychiatric: other ( answering questions) ICD10 Worksheet Patient Problems: Problems Problem Status Onset Hypoxia Acute Pneumonia Acute
[2016-05-13] MEDS: DAPTOmycin 540 MG in NS 100 ML IV SCH (16:41)
[2016-05-13] MEDS ORDERED: HEPARIN 50,000 UNIT/10 ML VIAL ONE (16:52)
--- NOTE | 2016-05-13 17:20 | PCMIDPN ---
Assessment/Plan: Assessment/Plan: * Polymicrobial abdominal abscess and peritonitis following duodenal perforation after ERCP for choledocholithiasis with associated E coli bacteremia : Clinically improved with continued purulent output via CHARLIE drain. Most recent cultures with growth of enterococcus faecalis and lactobacillus. Continue daptomycin, aztreonam (prior cultures with growth of Pseudomonas), micafungin, and metronidazole. Consider stopping micafungin after 7 days of therapy as no yeast have grown. * Acute renal failure now on dialysis * Thrombocytopenia: Platelet count stable today. Heparin discontinued. 05/13/16 17:16 Subjective: Patient confused this p.m. no specific complaints. Objective: Vital Signs Temp Pulse Resp BP Pulse Ox 36.8 C 80 14 138/76 H 99 05/13/16 16:00 05/13/16 16:00 05/13/16 16:00 05/13/16 16:00 05/13/16 16:00 Microbiology 05/09/16 17:45 Gram Stain - Final Abdomen - Aspirate 05/10/16 13:55 Urine Culture - Final Urine,Catheterized Laboratory Results 05/13/16 06:20 05/13/16 06:20 05/12/16 05/13/16 05/14/16 05:59 05:59 05:59 Intake Total 1422 2123 1164 Output Total 980 390 385 Balance 442 1733 779 Daptomycin # 5 Aztreonam # 5 Micafungin # 5 Metronidazole # 3 - Physical Exam General Appearance: alert, no apparent distress EENT: other (Thick yellow brown coating on tongue), No scleral icterus Abdomen: non-tender, other (Purulent output via CHARLIE), No distended Neuro/Psych: confused (I need to go to the office) - Line/s LUE PICC Lines: No drainage, No erythema ICD10 Worksheet Patient Problems: Problems Problem Status Onset Hypoxia Acute Pneumonia Acute
[2016-05-13 18:21] LABS: HEPARIN INDUCED ANTIBODY Negative (Negative); REACTIVITY 9 % (<20)
[2016-05-13] MEDS: TPN 1 EA BAG IV SCH (21:00)
[2016-05-14] MEDS: AZTREONAM 0.5 GM in NS 50 ML IV SCH ×3 (05:06→23:54)
[2016-05-14 05:38] LABS: ADD DIFF? YES; ADD MORPH? NO; ATYPICAL LYMPHOCYTE FLAG 50 (0-99); FRAGMENT RBC FLAG 0 (0-99); HEMATOCRIT 24.7 % (40.0-51.0); HEMOGLOBIN 8.1 g/dL (13.7-17.5); LIPEMIA HEMOLYSIS FLAG 80 (0-99); MEAN CELL HEMOGLOBIN 30.6 pg (27.9-34.1); MEAN CELL HEMOGLOBIN CONCENTR. 32.8 g/dL (32.4-36.7); MEAN CELL VOLUME 93.2 fL (81.5-99.8); PLATELET CLUMPS FLAG 0 (0-99); PLATELET COUNT 114 10^3/uL (150-400); RED BLOOD CELL COUNT 2.65 10^6/uL (4.40-6.38); RED CELL DISTRIBUTION WIDTH 17.4 % (11.5-15.2)
[2016-05-14 05:55] LABS: ALANINE AMINOTRANSFERASE 29 IU/L (21-72); ALKALINE PHOSPHATASE 55 IU/L (38-126); ANION GAP 9 mEq/L (8-16); ASPARTATE AMINOTRANSFERASE 18 IU/L (17-59); BILIRUBIN,TOTAL 0.5 mg/dL (0.1-1.4); CALCIUM 7.9 mg/dL (8.5-10.4); CARBON DIOXIDE 26 mEq/l (22-31); CHLORIDE 102 mEq/L (97-110); GLOMERULAR FILTRATION RATE 15; GLUCOSE 122 mg/dL (70-100); MAGNESIUM 1.5 mg/dL (1.6-2.3); POTASSIUM 3.3 mEq/L (3.5-5.2); SODIUM 137 mEq/L (134-144)
[2016-05-14 06:16] LABS: ADD SCAN? NO; LEFT SHIFT FLG 110 (0-99)
[2016-05-14] MEDS: INSULIN REGULAR, HUMAN 100 UNIT/1 ML VIAL STANDARD SC SCH ×4 (06:17→17:54)
[2016-05-14 07:21] LABS: HYPOCHROMIA 1+; POLYCHROMASIA 1+
[2016-05-14 07:22] LABS: PLATELET ESTIMATE DECREASED (ADEQ)
[2016-05-14] MEDS: PANTOPRAZOLE SODIUM 40 MG in NS 100 ML IV SCH (07:42)
[2016-05-14] MEDS ORDERED: FUROSEMIDE 100 MG/10 ML VIAL IVP ONE (09:00)
[2016-05-14] MEDS: MICAFUNGIN NA 100 MG in NS 100 ML IV SCH (09:25)
[2016-05-14] MEDS: HEPARIN 5,000 UNIT/0.5 ML SYR SC SCH ×3 (10:34→23:54)
[2016-05-14] MEDS ORDERED: MAGNESIUM SULF 1 GM/DEXTROSE 100 ML IV ONE (11:00)
[2016-05-14] MEDS: POTASSIUM Cl (KCl) 50 ML IV SCH ×3 (11:14→13:16)
--- NOTE | 2016-05-14 11:21 | SOAPPROG ---
SOAP Progress Note Assessment/Plan: Assessment/Plan 81yo M c duodenal perf s/p ex lap, repair and washout x2. Persistent leak - Mental status about back to baseline, but making daily improvements. - denies abd pain, CHARLIE with 165cc out, clearing. Plan for drain study vs CT early next week but has been making progress - Cont strict NPO, nothing per J tube, cont TPN - Making progress, very happy with how he looks today 05/06/16 13:11 05/07/16 12:00 05/07/16 12:01 05/08/16 12:18 05/09/16 09:10 05/10/16 09:26 05/13/16 13:09 05/14/16 11:20 Subjective: AOx3, denies abd pain. Objective: Vital Signs Temp Pulse Resp BP Pulse Ox 36.9 C 82 18 156/82 H 96 05/14/16 07:52 05/14/16 07:52 05/14/16 07:52 05/14/16 07:52 05/14/16 07:52 Microbiology 05/09/16 17:45 Gram Stain - Final Abdomen - Aspirate Laboratory Results 05/14/16 05:20 05/14/16 05:20 05/13/16 05/14/16 05/15/16 05:59 05:59 05:59 Intake Total 2123 2245 Output Total 390 790 Balance 1733 1455 PT 17.2 SEC (12.0-15.0) H 05/13/16 06:20 INR 1.41 (0.83-1.16) H 05/13/16 06:20 ICD10 Worksheet Patient Problems: Problems Problem Status Onset Hypoxia Acute Pneumonia Acute
--- NOTE | 2016-05-14 11:35 | PCMIDPN ---
Assessment/Plan: 1. Polymicrobial abdominal abscess/peritonitis after duodenal perforation after ERCP for choledocholithiasis with associated E coli bacteremia: Repeat CT scan of the abdomen and pelvis likely next week. Patient continues to have ongoing leak; CHARLIE output is not slowing down. Continue same antibiotics. Repeat CK May 18 as part of safety labs on daptomycin. Lactobacillus susceptibilities are pending. As outlined by Dr. Bernal, will likely discontinue Micafungin in the next day or 2 secondary to no fungal growth. 05/14/16 11:38 Subjective: Family reports that he is about the same today, although less confused. He is sound asleep in the chair. Objective: Daptomycin 540 mg every 48 hours day 6 Aztreonam 0.5 g IV q.8 hours day 6 Micafungin 100 mg IV daily day 6 Metronidazole 500 mg q.8 hours day four Afebrile Vital Signs Temp Pulse Resp BP Pulse Ox 36.9 C 82 18 156/82 H 96 05/14/16 07:52 05/14/16 07:52 05/14/16 07:52 05/14/16 07:52 05/14/16 07:52 Microbiology 05/09/16 17:45 Gram Stain - Final Abdomen - Aspirate Laboratory Results 05/14/16 05:20 05/14/16 05:20 05/13/16 05/14/16 05/15/16 05:59 05:59 05:59 Intake Total 2123 2245 Output Total 390 790 Balance 1733 1455 - Physical Exam General Appearance: other (Snoring in the chair.) EENT: No thrush Respiratory: other (Decreased breath sounds at bases.) Cardiac/Chest: regular rate, rhythm, No tachycardia, No systolic murmur Abdomen: other (CHARLIE drain right upper abdomen with approximately 20 cc of seropurulent drainage. Abdominal dressing not taken down.) Skin: No rash ICD10 Worksheet Patient Problems: Problems Problem Status Onset Hypoxia Acute Pneumonia Acute
--- NOTE | 2016-05-14 13:54 | SOAPPROG ---
SOAP Progress Note Assessment/Plan: Assessment: 1. MILLA. Sediment consistent with ATN. UOP improved with lasix. May be starting to recover. Will still plan dialysis tomorrow, hold Sun and probably Tuesday.. Would leave amado for now as had difficult placement. 2. Abdominal abscess. Continue broad spectrum abx, antifungals and drain. 3. Malnutrition. Continue tpn. 4. Hypokalemia. Replaced this am. Plan: 05/12/16 09:17 05/14/16 13:52 05/14/16 13:53 Subjective: No complaints. Got up and walked per RN. Objective: Vital Signs Temp Pulse Resp BP Pulse Ox 36.9 C 82 18 156/82 H 96 05/14/16 07:52 05/14/16 07:52 05/14/16 07:52 05/14/16 07:52 05/14/16 07:52 Microbiology 05/09/16 17:45 Gram Stain - Final Abdomen - Aspirate Laboratory Results 05/14/16 05:20 05/14/16 05:20 05/13/16 05/14/16 05/15/16 05:59 05:59 05:59 Intake Total 2123 2245 Output Total 390 790 Balance 1733 1455 PT 17.2 SEC (12.0-15.0) H 05/13/16 06:20 INR 1.41 (0.83-1.16) H 05/13/16 06:20 Sitting RRR, no m/g/r CTAB Abdom soft, nt 1+ LE edema ICD10 Worksheet Patient Problems: Problems Problem Status Onset Hypoxia Acute Pneumonia Acute
[2016-05-14] MEDS: IPRATROPIUM/ALBUTEROL 3 ML DEYVIAL IH PRN (15:47)
[2016-05-14] MEDS ORDERED: HEPARIN 50,000 UNIT/10 ML VIAL ONE (16:36)
[2016-05-14] MEDS ORDERED: MAGNESIUM SULF 1 GM/DEXTROSE 100 ML BAG IV ONE (16:54)
--- NOTE | 2016-05-14 18:38 | HOSPPROG ---
Hospitalist Progress Note Assessment/Plan: # acute encephalopathy - improving every day - suspect delirium d/t renal failure among other acute issues - MRI brain negative # peritonitis - s/p multiple I&Ds - s/p perc drain placed by IR, better output with irrigation - duodenal perf s/p repair with omental patch - abx per ID with dapto/aztreonam/micafungin/flagyl # rash - follow, occurred on levaquin # nutrition - continue TPN; - would prefer not to use J-tube per Dr. Dunbar although communication with duodenal perf unlikely to communicate with J-tube # basilic vein superficial thrombosis - PICC moved to R arm, cont ppx SQH # MILLA, oliguric, likely ATN - HD yesterday; good response to Lasix yesterday - lytes ok - w/u per renal # e. coli bacteremia d/t choledocholithiasis - resolved - biliary stents will need to eventually be addressed # pleural effusion - s/p thora * may be reaccumulating # pulmonary edema/ fluid overload * per Nephrology # thrombocytopenia * hit panel negative * restart heparin # FCFT Subjective: more awake. no new complaint Objective: Vital Signs Temp Pulse Resp BP Pulse Ox 36.5 C 76 16 152/79 H 97 05/14/16 16:00 05/14/16 16:00 05/14/16 16:00 05/14/16 16:00 05/14/16 16:00 Microbiology 05/09/16 17:45 Gram Stain - Final Abdomen - Aspirate Laboratory Results 05/14/16 05:20 05/14/16 05:20 05/13/16 05/14/16 05/15/16 05:59 05:59 05:59 Intake Total 2123 2245 Output Total 390 790 50 Balance 1733 1455 -50 PT 17.2 SEC (12.0-15.0) H 05/13/16 06:20 INR 1.41 (0.83-1.16) H 05/13/16 06:20 discsused with surgery tele pers rev/interpreted - Physical Exam Constitutional: no apparent distress, appears nourished, not in pain Eyes: anicteric sclera, EOMI Ears, Nose, Mouth, Throat: moist mucous membranes, hearing normal, ears appear normal Cardiovascular: regular rate and rhythym, no murmur, rub, or gallop Respiratory: no respiratory distress, no rales or rhonchi, clear to auscultation Gastrointestinal: soft, non-tender abdomen, other (etienne drain), No normoactive bowel sounds Genitourinary: amado in urethra Neurologic: AAOx3 Psychiatric: interacting appropriately, not anxious, not encephalopathic, thought process linear ICD10 Worksheet Patient Problems: Problems Problem Status Onset Hypoxia Acute Pneumonia Acute
[2016-05-14] MEDS: TPN 1 EA BAG IV SCH (21:30)
[2016-05-15] MEDS: INSULIN REGULAR, HUMAN 100 UNIT/1 ML VIAL STANDARD SC SCH ×4 (03:54→20:23)
[2016-05-15] MEDS: HEPARIN 5,000 UNIT/0.5 ML SYR SC SCH ×3 (06:36→22:48)
[2016-05-15 08:03] LABS: ALANINE AMINOTRANSFERASE 31 IU/L (21-72); ALBUMIN 2.4 g/dL (3.5-5.0); ALKALINE PHOSPHATASE 60 IU/L (38-126); ANION GAP 13 mEq/L (8-16); ASPARTATE AMINOTRANSFERASE 27 IU/L (17-59); BILIRUBIN,TOTAL 0.6 mg/dL (0.1-1.4); CALCIUM 8.4 mg/dL (8.5-10.4); CARBON DIOXIDE 24 mEq/l (22-31); CHLORIDE 103 mEq/L (97-110); CREATININE 5.4 mg/dL (0.7-1.3); GLOMERULAR FILTRATION RATE 10; GLUCOSE 131 mg/dL (70-100); POTASSIUM 3.4 mEq/L (3.5-5.2); SODIUM 140 mEq/L (134-144); TOTAL PROTEIN 5.8 g/dL (6.3-8.2)
[2016-05-15 08:06] LABS: ADD DIFF? YES; ADD MORPH? NO; ADD SCAN? YES; ATYPICAL LYMPHOCYTE FLAG 50 (0-99); FRAGMENT RBC FLAG 0 (0-99); HEMATOCRIT 24.6 % (40.0-51.0); HEMOGLOBIN 8.1 g/dL (13.7-17.5); LIPEMIA HEMOLYSIS FLAG 80 (0-99); MEAN CELL HEMOGLOBIN 30.1 pg (27.9-34.1); MEAN CELL HEMOGLOBIN CONCENTR. 32.9 g/dL (32.4-36.7); MEAN CELL VOLUME 91.4 fL (81.5-99.8); MEAN PLATELET VOLUME 10.5 fL (8.7-11.7); PLATELET CLUMPS FLAG 10 (0-99); PLATELET COUNT 171 10^3/uL (150-400); RED BLOOD CELL COUNT 2.69 10^6/uL (4.40-6.38); RED CELL DISTRIBUTION WIDTH 17.6 % (11.5-15.2)
[2016-05-15 08:13] LABS: LEFT SHIFT FLG 100 (0-99)
[2016-05-15 09:26] LABS: SCAN POSITIVE
[2016-05-15 09:29] LABS: PLATELET ESTIMATE ADEQUATE (ADEQ)
--- NOTE | 2016-05-15 11:10 | SOAPPROG ---
SOAP Progress Note Assessment/Plan: Assessment/Plan 81yo M c duodenal perf s/p ex lap, repair and washout x2. Persistent leak - Mental status still good, denies abd pain. Didnt sleep well overnight - CHARLIE continues to drain with aggressive flushing. - WBC 14 today, continues to trend between 10-14. Cont BS Abx. - Planning CT Tuesday with PO contrast to eval for persistent leak, residual fluid collection. - Cont OOBTC, PT/OT 05/06/16 13:11 05/07/16 12:00 05/07/16 12:01 05/08/16 12:18 05/09/16 09:10 05/10/16 09:26 05/13/16 13:09 05/14/16 11:20 05/15/16 11:09 Objective: Vital Signs Temp Pulse Resp BP Pulse Ox 36.5 C 76 16 152/79 H 95 05/14/16 16:00 05/14/16 16:00 05/14/16 16:00 05/14/16 16:00 05/15/16 00:00 Microbiology 05/09/16 12:15 Blood Culture - Final Blood 05/09/16 12:05 Blood Culture - Final Blood 05/09/16 17:45 Gram Stain - Final Abdomen - Aspirate Laboratory Results 05/15/16 07:30 05/15/16 07:30 05/14/16 05/15/16 05/16/16 05:59 05:59 05:59 Intake Total 2245 Output Total 790 50 Balance 1455 -50 PT 17.2 SEC (12.0-15.0) H 05/13/16 06:20 INR 1.41 (0.83-1.16) H 05/13/16 06:20 ICD10 Worksheet Patient Problems: Problems Problem Status Onset Hypoxia Acute Pneumonia Acute
[2016-05-15] MEDS: PANTOPRAZOLE SODIUM 40 MG in NS 100 ML IV SCH (11:17)
[2016-05-15] MEDS: MICAFUNGIN NA 100 MG in NS 100 ML IV SCH (11:40)
[2016-05-15] MEDS: AZTREONAM 0.5 GM in NS 50 ML IV SCH ×4 (11:44→22:48)
--- NOTE | 2016-05-15 13:52 | SOAPPROG ---
SOAP Progress Note Assessment/Plan: Assessment: 1. MILLA. Sediment consistent with ATN. UOP improved with lasix, creat still rising between treatments. Hold HD tomorrow, will likely need by Tuesday or Tuesday. Would leave amado for now as had difficult placement. 2. Abdominal abscess. Continue broad spectrum abx, antifungals and drain. 3. Malnutrition. Continue tpn. 4. Hypokalemia. Dialyzed on 4 K bath this am. 5. Edema. Repeat lasix today. Plan: 05/12/16 09:17 05/14/16 13:52 05/14/16 13:53 05/15/16 13:51 Subjective: Had dialysis earlier today. No UF, no problems but very tired. Family here visiting from [place]. Objective: Vital Signs Temp Pulse Resp BP Pulse Ox 36.5 C 76 16 152/79 H 95 05/14/16 16:00 05/14/16 16:00 05/14/16 16:00 05/14/16 16:00 05/15/16 00:00 Microbiology 05/09/16 12:15 Blood Culture - Final Blood 05/09/16 12:05 Blood Culture - Final Blood 05/09/16 17:45 Gram Stain - Final Abdomen - Aspirate Laboratory Results 05/15/16 07:30 05/15/16 07:30 05/14/16 05/15/16 05/16/16 05:59 05:59 05:59 Intake Total 2245 Output Total 790 50 Balance 1455 -50 PT 17.2 SEC (12.0-15.0) H 05/13/16 06:20 INR 1.41 (0.83-1.16) H 05/13/16 06:20 Tired, alert, in bed RRR, no m/g/r CTAB ABdom soft, nt Chocolate colored liquid in CHARLIE drain 3+ LE pitting edema ICD10 Worksheet Patient Problems: Problems Problem Status Onset Hypoxia Acute Pneumonia Acute
[2016-05-15] MEDS ORDERED: FUROSEMIDE 40 MG/4 ML VIAL IVP ONE (13:53)
--- NOTE | 2016-05-15 14:58 | HOSPPROG ---
Hospitalist Progress Note Assessment/Plan: # acute encephalopathy - improving every day - suspect delirium d/t renal failure among other acute issues - MRI brain negative # peritonitis - s/p multiple I&Ds - s/p perc drain placed by IR, better output with irrigation - duodenal perf s/p repair with omental patch - abx per ID with dapto/aztreonam/micafungin/flagyl # rash - follow, occurred on levaquin # nutrition - continue TPN; - would prefer not to use J-tube per Dr. Dunbar although communication with duodenal perf unlikely to communicate with J-tube # basilic vein superficial thrombosis - PICC moved to R arm, cont ppx SQH # MILLA, oliguric, likely ATN - HD yesterday; good response to Lasix yesterday - lytes ok - w/u per renal # e. coli bacteremia d/t choledocholithiasis - resolved - biliary stents will need to eventually be addressed # pleural effusion - s/p thora * may be reaccumulating # pulmonary edema/ fluid overload * per Nephrology # thrombocytopenia * hit panel negative * restart heparin # FCFT Subjective: no new complaints. coughing Objective: Vital Signs Temp Pulse Resp BP Pulse Ox 36.5 C 76 16 152/79 H 95 05/14/16 16:00 05/14/16 16:00 05/14/16 16:00 05/14/16 16:00 05/15/16 00:00 Microbiology 05/09/16 12:15 Blood Culture - Final Blood 05/09/16 12:05 Blood Culture - Final Blood 05/09/16 17:45 Gram Stain - Final Abdomen - Aspirate Laboratory Results 05/15/16 07:30 05/15/16 07:30 05/14/16 05/15/16 05/16/16 05:59 05:59 05:59 Intake Total 2245 Output Total 790 50 Balance 1455 -50 PT 17.2 SEC (12.0-15.0) H 05/13/16 06:20 INR 1.41 (0.83-1.16) H 05/13/16 06:20 tele pers reviewed/int - nsr - Physical Exam Constitutional: no apparent distress, appears nourished, not in pain Eyes: anicteric sclera, EOMI Ears, Nose, Mouth, Throat: moist mucous membranes, hearing normal, ears appear normal Cardiovascular: regular rate and rhythym, no murmur, rub, or gallop Respiratory: no respiratory distress, other (wet rhonchi) Gastrointestinal: soft, non-tender abdomen, no palpable masses, other (etienne drain) Skin: warm Neurologic: AAOx3 Psychiatric: interacting appropriately, not anxious, not encephalopathic, thought process linear ICD10 Worksheet Patient Problems: Problems Problem Status Onset Hypoxia Acute Pneumonia Acute
[2016-05-15] MEDS: DAPTOmycin 540 MG in NS 100 ML IV SCH (15:07)
[2016-05-15] MEDS ORDERED: POTASSIUM Cl (KCl) 50 ML IV SCH (16:00)
[2016-05-15] MEDS: TPN 1 EA BAG IV SCH (20:30)
[2016-05-16] MEDS: HYDROmorphONE/DILAUDID 1 MG/ML SYR IVP PRN ×2 (02:08→22:16)
[2016-05-16] MEDS: INSULIN REGULAR, HUMAN 100 UNIT/1 ML VIAL STANDARD SC SCH ×4 (02:10→18:44)
[2016-05-16] MEDS: HEPARIN 5,000 UNIT/0.5 ML SYR SC SCH ×3 (05:27→21:11)
[2016-05-16] MEDS: AZTREONAM 0.5 GM in NS 50 ML IV SCH ×3 (05:27→21:11)
[2016-05-16 06:01] LABS: ADD DIFF? YES; ADD MORPH? NO; ADD SCAN? NO; ATYPICAL LYMPHOCYTE FLAG 30 (0-99); FRAGMENT RBC FLAG 0 (0-99); HEMOGLOBIN 7.8 g/dL (13.7-17.5); LEFT SHIFT FLG 80 (0-99); LIPEMIA HEMOLYSIS FLAG 80 (0-99); MEAN CELL HEMOGLOBIN 30.5 pg (27.9-34.1); MEAN CELL HEMOGLOBIN CONCENTR. 32.5 g/dL (32.4-36.7); MEAN CELL VOLUME 93.8 fL (81.5-99.8); MEAN PLATELET VOLUME 10.2 fL (8.7-11.7); PLATELET CLUMPS FLAG 20 (0-99); PLATELET COUNT 140 10^3/uL (150-400); RED BLOOD CELL COUNT 2.56 10^6/uL (4.40-6.38); RED CELL DISTRIBUTION WIDTH 17.6 % (11.5-15.2)
[2016-05-16 06:12] LABS: ALANINE AMINOTRANSFERASE 30 IU/L (21-72); ALKALINE PHOSPHATASE 57 IU/L (38-126); ANION GAP 8 mEq/L (8-16); ASPARTATE AMINOTRANSFERASE 17 IU/L (17-59); BILIRUBIN,TOTAL 0.4 mg/dL (0.1-1.4); CALCIUM 8.2 mg/dL (8.5-10.4); CARBON DIOXIDE 26 mEq/l (22-31); CHLORIDE 103 mEq/L (97-110); CREATININE 3.9 mg/dL (0.7-1.3); GLOMERULAR FILTRATION RATE 15; GLUCOSE 126 mg/dL (70-100); POTASSIUM 3.4 mEq/L (3.5-5.2); SODIUM 137 mEq/L (134-144); TOTAL PROTEIN 5.1 g/dL (6.3-8.2)
[2016-05-16 07:19] LABS: PLATELET ESTIMATE DECREASED (ADEQ)
[2016-05-16] MEDS: MICAFUNGIN NA 100 MG in NS 100 ML IV SCH (08:51)
[2016-05-16] MEDS: POTASSIUM Cl (KCl) 50 ML IV SCH ×4 (08:57→13:41)
[2016-05-16] MEDS: PANTOPRAZOLE SODIUM 40 MG in NS 100 ML IV SCH (08:57)
--- NOTE | 2016-05-16 10:44 | SOAPPROG ---
SOAP Progress Note Assessment/Plan: Assessment/Plan 81yo M c duodenal perf s/p ex lap, repair and washout x2. Persistent leak - Mental status still good, denies abd pain. Didnt sleep well overnight - CHARLIE continues to drain with aggressive flushing, output remains purulent today but Im glad that it has been draining as he had a sizeable fluid collection initially - WBC still 12-14 today, continues to trend between 10-14. Cont BS Abx. - Planning CT Tuesday with PO contrast to eval for persistent leak, residual fluid collection. - Cont OOBTC, PT/OT 05/06/16 13:11 05/07/16 12:00 05/07/16 12:01 05/08/16 12:18 05/09/16 09:10 05/10/16 09:26 05/13/16 13:09 05/14/16 11:20 05/15/16 11:09 05/16/16 10:43 Subjective: Sitting in chair, wants to eat Objective: Vital Signs Temp Pulse Resp BP Pulse Ox 36.7 C 74 16 162/86 H 94 05/16/16 08:32 05/16/16 00:00 05/16/16 00:00 05/16/16 08:32 05/16/16 08:32 Microbiology 05/09/16 12:15 Blood Culture - Final Blood 05/09/16 12:05 Blood Culture - Final Blood Laboratory Results 05/16/16 05:40 05/16/16 05:40 05/15/16 05/16/16 05/17/16 05:59 05:59 05:59 Intake Total 3437 Output Total 50 575 Balance -50 2862 PT 17.2 SEC (12.0-15.0) H 05/13/16 06:20 INR 1.41 (0.83-1.16) H 05/13/16 06:20 ICD10 Worksheet Patient Problems: Problems Problem Status Onset Hypoxia Acute Pneumonia Acute
[2016-05-16] MEDS ORDERED: MAGNESIUM SULF 2 GM/WATER 50 ML IV ONE (11:00)
[2016-05-16] MEDS ORDERED: MAGNESIUM SULF 2 GM/WATER 50 ML BAG IV ONE (12:15)
[2016-05-16] MEDS: IPRATROPIUM/ALBUTEROL 3 ML DEYVIAL IH PRN ×2 (14:14→21:56)
--- NOTE | 2016-05-16 14:26 | HOSPPROG ---
Hospitalist Progress Note Assessment/Plan: # peritonitis - s/p multiple I&Ds - s/p perc drain placed by IR, better output with irrigation - duodenal perf s/p repair with omental patch - abx per ID with dapto/aztreonam/micafungin/flagyl # rash - follow, occurred on levaquin # nutrition - continue TPN; - would prefer not to use J-tube per Dr. Dunbar although communication with duodenal perf unlikely to communicate with J-tube # basilic vein superficial thrombosis - PICC moved to R arm, cont ppx SQH # MILLA, oliguric, likely ATN - HD yesterday; good response to Lasix yesterday - lytes ok - w/u per renal # e. coli bacteremia d/t choledocholithiasis - resolved # acute encephalopathy - improving every day - suspect delirium d/t renal failure among other acute issues - MRI brain negative - biliary stents will need to eventually be addressed # pleural effusion - s/p thora * may be reaccumulating # pulmonary edema/ fluid overload * per Nephrology # thrombocytopenia * hit panel negative * restart heparin # FCFT Subjective: no new complaints Objective: Vital Signs Temp Pulse Resp BP Pulse Ox 36.7 C 89 16 162/86 H 94 05/16/16 08:32 05/16/16 14:14 05/16/16 00:00 05/16/16 08:32 05/16/16 14:14 Laboratory Results 05/16/16 05:40 05/16/16 05:40 05/15/16 05/16/16 05/17/16 05:59 05:59 05:59 Intake Total 3437 Output Total 50 575 Balance -50 2862 PT 17.2 SEC (12.0-15.0) H 05/13/16 06:20 INR 1.41 (0.83-1.16) H 05/13/16 06:20 - Physical Exam Constitutional: no apparent distress, appears nourished, not in pain Eyes: anicteric sclera, EOMI Ears, Nose, Mouth, Throat: moist mucous membranes, hearing normal, ears appear normal Cardiovascular: regular rate and rhythym, no murmur, rub, or gallop, edema ( 1+) Respiratory: no respiratory distress, other ( less rhonchi. More clear) Gastrointestinal: soft, non-tender abdomen, no palpable masses, No normoactive bowel sounds Skin: warm Neurologic: AAOx3 Psychiatric: interacting appropriately, not anxious, not encephalopathic, thought process linear ICD10 Worksheet Patient Problems: Problems Problem Status Onset Hypoxia Acute Pneumonia Acute
--- NOTE | 2016-05-16 14:29 | SOAPPROG ---
SOAP Progress Note Assessment/Plan: Assessment: 1. MILLA. Sediment consistent with ATN. UOP marginal despite lasix, creat still rising between treatments. Dialysis tomorrow to keep up with volume from TPN. Ask pharmacy to concentrate TPN. Would leave amado for now as had difficult placement. 2. Abdominal abscess. Continue broad spectrum abx, antifungals and drain. CT tomorrow. 3. Malnutrition. Continue tpn. 4. Hypokalemia. Improved. Dialyzed on 4 K bath yesterday. 5. Edema. Repeat lasix today. Will schedule. Plan: 05/12/16 09:17 05/14/16 13:52 05/14/16 13:53 05/15/16 13:51 05/16/16 14:28 05/16/16 14:29 Subjective: Had dialysis yesterday. No complaints today. Objective: Vital Signs Temp Pulse Resp BP Pulse Ox 36.7 C 89 16 162/86 H 94 05/16/16 08:32 05/16/16 14:14 05/16/16 00:00 05/16/16 08:32 05/16/16 14:14 Laboratory Results 05/16/16 05:40 05/16/16 05:40 05/15/16 05/16/16 05/17/16 05:59 05:59 05:59 Intake Total 3437 Output Total 50 575 Balance -50 2862 PT 17.2 SEC (12.0-15.0) H 05/13/16 06:20 INR 1.41 (0.83-1.16) H 05/13/16 06:20 in bed, comfortable older wm RRR, no m/g/r CTAB Abdom soft, nt. Drain not examined today 2+ LE pitting edema ICD10 Worksheet Patient Problems: Problems Problem Status Onset Hypoxia Acute Pneumonia Acute
[2016-05-16] MEDS: FUROSEMIDE 40 MG/4 ML VIAL IVP SCH (15:55)
[2016-05-16] MEDS: TPN 1 EA BAG IV SCH (20:48)
[2016-05-17] MEDS: INSULIN REGULAR, HUMAN 100 UNIT/1 ML VIAL STANDARD SC SCH ×4 (00:35→17:35)
[2016-05-17] MEDS: IPRATROPIUM/ALBUTEROL 3 ML DEYVIAL IH PRN ×3 (02:53→21:01)
[2016-05-17] MEDS: HYDROmorphONE/DILAUDID 1 MG/ML SYR IVP PRN (03:32)
[2016-05-17 04:47] LABS: ADD DIFF? YES; ADD MORPH? NO; ADD SCAN? NO; ATYPICAL LYMPHOCYTE FLAG 20 (0-99); FRAGMENT RBC FLAG 20 (0-99); HEMATOCRIT 22.9 % (40.0-51.0); HEMOGLOBIN 7.4 g/dL (13.7-17.5); LEFT SHIFT FLG 60 (0-99); LIPEMIA HEMOLYSIS FLAG 80 (0-99); MEAN CELL HEMOGLOBIN 29.5 pg (27.9-34.1); MEAN CELL HEMOGLOBIN CONCENTR. 32.3 g/dL (32.4-36.7); MEAN CELL VOLUME 91.2 fL (81.5-99.8); MEAN PLATELET VOLUME 10.2 fL (8.7-11.7); PLATELET CLUMPS FLAG 10 (0-99); PLATELET COUNT 181 10^3/uL (150-400); RED BLOOD CELL COUNT 2.51 10^6/uL (4.40-6.38); RED CELL DISTRIBUTION WIDTH 17.9 % (11.5-15.2)
[2016-05-17 04:58] LABS: INR 1.7 (0.83-1.16)
[2016-05-17 04:59] LABS: APTT 37.6 SEC (23.0-38.0)
[2016-05-17] MEDS: HEPARIN 5,000 UNIT/0.5 ML SYR SC SCH ×3 (05:10→22:24)
[2016-05-17 05:12] LABS: ALANINE AMINOTRANSFERASE 27 IU/L (21-72); ALBUMIN 2.1 g/dL (3.5-5.0); ALKALINE PHOSPHATASE 59 IU/L (38-126); ANION GAP 12 mEq/L (8-16); ASPARTATE AMINOTRANSFERASE 16 IU/L (17-59); BILIRUBIN,TOTAL 0.5 mg/dL (0.1-1.4); CALCIUM 8.3 mg/dL (8.5-10.4); CARBON DIOXIDE 23 mEq/l (22-31); CHLORIDE 104 mEq/L (97-110); GLOMERULAR FILTRATION RATE 11; GLUCOSE 130 mg/dL (70-100); MAGNESIUM 2.1 mg/dL (1.6-2.3); POTASSIUM 3.6 mEq/L (3.5-5.2); SODIUM 139 mEq/L (134-144); TOTAL PROTEIN 5.4 g/dL (6.3-8.2); TRIGLYCERIDE 51 mg/dL (40-150)
[2016-05-17] MEDS: LORazepam 2 MG/ML INJ IV PRN ×2 (05:19→10:35)
[2016-05-17 05:45] LABS: ELLIPTOCYTES 1+; HYPOCHROMIA 1+; KERATOCYTES 1+; PLATELET ESTIMATE ADEQUATE (ADEQ); POLYCHROMASIA 1+
[2016-05-17] MEDS: AZTREONAM 0.5 GM in NS 50 ML IV SCH ×3 (07:06→22:21)
[2016-05-17] MEDS: FUROSEMIDE 40 MG/4 ML VIAL IVP SCH (08:01)
[2016-05-17] MEDS: PANTOPRAZOLE SODIUM 40 MG in NS 100 ML IV SCH (08:01)
--- NOTE | 2016-05-17 09:46 | PCMIDPN ---
Assessment/Plan: Assessment: Continued abdominal fluid collection status post duodenal leak. CHARLIE drain still putting out significant amounts of fluid. Patient has significant respiratory distress this morning. Awaiting stat chest x-ray to determine fluid overload verses new infiltrate. Suspect this is more consistent with fluid overload. Continues on daptomycin, aztreonam, metronidazole and micafungin. Plan: 1. Continue current antibiotic regimen. 2. Review chest x-ray. 3. Follow CHARLIE output and clinical course. Subjective: Patient is resting in his hospital bed. He has some cognitive delay and confusion but is more communicative now apparently than the beginning of his stay. He is undergoing hemodialysis currently. No fevers or chills. Requiring 25 L per Oxym[facility]. This is increased significantly since yesterday. Objective: Daptomycin # 9 Aztreonam # 9 Metronidazole # 7 Micafungin # 9 Vital Signs Temp Pulse Resp BP Pulse Ox 36.8 C 107 H 18 167/76 H 91 L 05/17/16 08:00 05/17/16 08:00 05/17/16 08:00 05/17/16 08:00 05/17/16 08:00 Laboratory Results 05/17/16 04:30 05/17/16 04:30 05/16/16 05/17/16 05/18/16 05:59 05:59 05:59 Intake Total 3437 2277 Output Total 575 1190 Balance 2862 1087 - Physical Exam General Appearance: WD/WN, alert, apparent distress (Mild respiratory), non- toxic Respiratory: lungs clear, normal breath sounds, respiratory distress (Mild), No crackles Cardiac/Chest: regular rate, rhythm, No tachycardia Skin: normal color, warm/dry, No rash Neuro/Psych: alert, oriented x 3 ICD10 Worksheet Patient Problems: Problems Problem Status Onset Hypoxia Acute Pneumonia Acute
[2016-05-17] MEDS: MICAFUNGIN NA 100 MG in NS 100 ML IV SCH (10:34)
--- NOTE | 2016-05-17 11:14 | SOAPPROG ---
SOAP Progress Note Assessment/Plan: Assessment/Plan: MILLA: oliguric and likely ATN. UOP increasing with help of Lasix but Cr still uptrending. - HD today. - Next HD tentatively on Tuesday if needed. - Will continue Lasix. - Will continue to monitor her renal function closely for recovery. - Avoid MOM, morphine, NSAIDs, contrast, aminoglycosides, fleets, and other nephrotoxins. Hypervolemia: Will continue Lasix, taking off 2L with HD today. Would consider slowing rate of TPN as not able to concentrate further. Anemia: slowly downtrending to 7.4 today. Subjective: Pt with more work of breathing this am. He was agitated and got more Ativan overnight. He remains swollen. Objective: Vital Signs Temp Pulse Resp BP Pulse Ox 36.8 C 107 H 18 167/76 H 91 L 05/17/16 08:00 05/17/16 08:00 05/17/16 08:00 05/17/16 08:00 05/17/16 08:00 Laboratory Results 05/17/16 04:30 05/17/16 04:30 05/16/16 05/17/16 05/18/16 05:59 05:59 05:59 Intake Total 3437 2277 Output Total 575 1190 Balance 2862 1087 PT 20.0 SEC (12.0-15.0) H 05/17/16 04:30 INR 1.70 (0.83-1.16) H 05/17/16 04:30 General: alert and oriented, no acute distress Eyes: EOMI, pERRL OP: Clear CV: RRR Resp: slightly labored respirations, on NC Abd: Soft Ext: +2 edema BLE Neuro: no asterixis ICD10 Worksheet Patient Problems: Problems Problem Status Onset Hypoxia Acute Pneumonia Acute
--- NOTE | 2016-05-17 11:28 | SOAPPROG ---
SOAP Progress Note Assessment/Plan: Assessment/Plan 81yo M c duodenal perf s/p ex lap, repair and washout x2. Persistent leak - Mental status still good - Lungs sound bad, WOB increased. CXR shows poss fluid overload vs infiltrate, I would favor fluid overload given BS antibiotic coverage - Abdomen remains about the same, CHARLIE output is decreasing today. Will need CT c PO contrast either today vs tomorrow, would like to see him breathing better first however. 05/06/16 13:11 05/07/16 12:00 05/07/16 12:01 05/08/16 12:18 05/09/16 09:10 05/10/16 09:26 05/13/16 13:09 05/14/16 11:20 05/15/16 11:09 05/16/16 10:43 05/17/16 11:28 Objective: Vital Signs Temp Pulse Resp BP Pulse Ox 36.8 C 107 H 18 167/76 H 91 L 05/17/16 08:00 05/17/16 08:00 05/17/16 08:00 05/17/16 08:00 05/17/16 08:00 Laboratory Results 05/17/16 04:30 05/17/16 04:30 05/16/16 05/17/16 05/18/16 05:59 05:59 05:59 Intake Total 3437 2277 Output Total 575 1190 Balance 2862 1087 PT 20.0 SEC (12.0-15.0) H 05/17/16 04:30 INR 1.70 (0.83-1.16) H 05/17/16 04:30 ICD10 Worksheet Patient Problems: Problems Problem Status Onset Hypoxia Acute Pneumonia Acute
--- NOTE | 2016-05-17 16:18 | HOSPPROG ---
Hospitalist Progress Note Assessment/Plan: 81-year-old admitted for greater than a month several weeks ago. He initially presented with sepsis cholangitis. He underwent ERCP but suffered a duodenal perforation as a result. He was recently discharged with drain and on an IV antibiotics but returned with return of abscess and acute renal failure # peritonitis - s/p multiple I&Ds - s/p perc drain placed by IR, better output with irrigation - duodenal perf s/p repair with omental patch - abx per ID with dapto/aztreonam/micafungin/flagyl * CT scan tomorrow to look for continued leak # MILLA, oliguric, likely ATN * getting hemodialysis every other day * some urine output # nutrition - continue TPN; - would prefer not to use J-tube per Dr. Dunbar although communication with duodenal perf unlikely to communicate with J-tube # basilic vein superficial thrombosis - PICC moved to R arm, cont ppx SQH # e. coli bacteremia d/t choledocholithiasis - resolved # acute encephalopathy * resolved - MRI brain negative * biliary stents - will need to eventually be removed # pleural effusion - s/p thora * may be reaccumulating * continue to watch # pulmonary edema/ fluid overload * per Nephrology * ? Lasix tomorrow # thrombocytopenia * hit panel negative * restart heparin # rash - follow, occurred on levaquin # FCFT Subjective: Worsening oxygen requirement this morning. feels better after dialysis. 2 L were taken off today. Objective: Vital Signs Temp Pulse Resp BP Pulse Ox 37.4 C 100 18 168/80 H 95 05/17/16 15:51 05/17/16 15:51 05/17/16 15:51 05/17/16 15:51 05/17/16 15:51 Laboratory Results 05/17/16 04:30 05/17/16 04:30 05/16/16 05/17/16 05/18/16 05:59 05:59 05:59 Intake Total 3437 2277 Output Total 575 1190 Balance 2862 1087 PT 20.0 SEC (12.0-15.0) H 05/17/16 04:30 INR 1.70 (0.83-1.16) H 05/17/16 04:30 X-ray personally reviewed interpreted shows worsening pulmonary edema and continued right pleural effusion discussed with surgery - Physical Exam Constitutional: no apparent distress, appears nourished, not in pain Eyes: anicteric sclera, EOMI Ears, Nose, Mouth, Throat: moist mucous membranes, hearing normal, ears appear normal Cardiovascular: regular rate and rhythym, no murmur, rub, or gallop, edema ( 2+) Respiratory: respiratory distress ( moderate tachypnea) Gastrointestinal: soft, non-tender abdomen, no palpable masses, other ( CHARLIE drain in place), No normoactive bowel sounds Skin: warm, normal color Neurologic: AAOx3 Psychiatric: interacting appropriately, not anxious, not encephalopathic, thought process linear ICD10 Worksheet Patient Problems: Problems Problem Status Onset Hypoxia Acute Pneumonia Acute
[2016-05-17] MEDS: DAPTOmycin 540 MG in NS 100 ML IV SCH (17:29)
[2016-05-17] MEDS: ACETAMINOPHEN 650 MG SUPP PR PRN (20:23)
[2016-05-17] MEDS: TPN 1 EA BAG IV SCH (20:29)
[2016-05-18] MEDS: INSULIN REGULAR, HUMAN 100 UNIT/1 ML VIAL STANDARD SC SCH ×4 (00:22→18:24)
[2016-05-18] MEDS: HYDROmorphONE/DILAUDID 1 MG/ML SYR IVP PRN (02:14)
[2016-05-18] MEDS: LORazepam 2 MG/ML INJ IV PRN ×2 (04:05→07:44)
[2016-05-18] MEDS: AZTREONAM 0.5 GM in NS 50 ML IV SCH ×2 (05:05→19:47)
[2016-05-18] MEDS: IPRATROPIUM/ALBUTEROL 3 ML DEYVIAL IH PRN ×5 (05:06→22:38)
[2016-05-18] MEDS: HEPARIN 5,000 UNIT/0.5 ML SYR SC SCH ×3 (05:41→21:39)
[2016-05-18] MEDS: PANTOPRAZOLE SODIUM 40 MG in NS 100 ML IV SCH (07:44)
[2016-05-18] MEDS: FUROSEMIDE 40 MG/4 ML VIAL IVP SCH (07:44)
[2016-05-18 08:49] LABS: ADD DIFF? YES; ADD MORPH? NO; ADD SCAN? NO; ATYPICAL LYMPHOCYTE FLAG 10 (0-99); FRAGMENT RBC FLAG 10 (0-99); HEMATOCRIT 24.5 % (40.0-51.0); HEMOGLOBIN 7.9 g/dL (13.7-17.5); LEFT SHIFT FLG 30 (0-99); LIPEMIA HEMOLYSIS FLAG 80 (0-99); MEAN CELL HEMOGLOBIN 30.5 pg (27.9-34.1); MEAN CELL HEMOGLOBIN CONCENTR. 32.2 g/dL (32.4-36.7); MEAN CELL VOLUME 94.6 fL (81.5-99.8); PLATELET CLUMPS FLAG 0 (0-99); PLATELET COUNT 226 10^3/uL (150-400); RED BLOOD CELL COUNT 2.59 10^6/uL (4.40-6.38); RED CELL DISTRIBUTION WIDTH 18.2 % (11.5-15.2)
[2016-05-18] MEDS: MICAFUNGIN NA 100 MG in NS 100 ML IV SCH (09:04)
[2016-05-18] MEDS ORDERED: FUROSEMIDE 20 MG/2 ML VIAL ONE (09:07)
[2016-05-18 09:20] LABS: ALANINE AMINOTRANSFERASE 31 IU/L (21-72); ALBUMIN 2.2 g/dL (3.5-5.0); ALKALINE PHOSPHATASE 67 IU/L (38-126); ANION GAP 9 mEq/L (8-16); ASPARTATE AMINOTRANSFERASE 21 IU/L (17-59); BILIRUBIN,TOTAL 0.5 mg/dL (0.1-1.4); CALCIUM 8.7 mg/dL (8.5-10.4); CARBON DIOXIDE 23 mEq/l (22-31); CHLORIDE 105 mEq/L (97-110); CREATININE 4.2 mg/dL (0.7-1.3); GLOMERULAR FILTRATION RATE 14; GLUCOSE 139 mg/dL (70-100); SODIUM 137 mEq/L (134-144); TOTAL PROTEIN 5.7 g/dL (6.3-8.2)
[2016-05-18 09:52] LABS: MICROCYTES 1+; PLATELET ESTIMATE ADEQUATE (ADEQ)
[2016-05-18 09:53] LABS: HYPOCHROMIA 1+
[2016-05-18 11:19] LABS: BASE EXCESS -2.3 mEq/L (-2.5-2.5); BICARBONATE 22 mEq/L (22-26); MEASURED OXYGEN SATURATION 89 % (92-95); PCO2 40 mmHg (34-38); PO2 63 mmHg (65-75); TCO2 23 mEq/L (23-27)
[2016-05-18 11:20] LABS: CALCULATED OXYGEN SATURATION 88 % (92-95)
[2016-05-18] MEDS ORDERED: ALBUMIN 25% 100 ML IV ONE (14:00)
--- NOTE | 2016-05-18 15:04 | SOAPPROG ---
SOAP Progress Note Assessment/Plan: Assessment: 1. arf: atn on sediment, decent uo but large obligate fluid intake (tpn). Lasix increased to help with volume. Hd today for volume to see if this improves resp status. 2. anemia: transfused 3. Overload: lasix increased as above, dialyzing today. Reportedly unable to concentrate tpn any further. 4. pulm: hd today for volume as above. Plan: 05/05/16 18:21 05/11/16 18:23 05/18/16 15:01 Subjective: Pt seen on hd. HR 110 at beginning of rx, increased sl to 120-130 with hd. Bp 153/81. +temp earlier. Objective: Vital Signs Temp Pulse Resp BP Pulse Ox 38.6 C H 118 H 21 H 162/83 H 99 05/18/16 12:00 05/18/16 12:00 05/18/16 12:00 05/18/16 12:00 05/18/16 12:00 Microbiology 05/09/16 17:45 Gram Stain - Final Abdomen - Aspirate Anaerobic Culture - Final Enterococcus Faecalis Lactobacillus Species Laboratory Results 05/18/16 08:44 05/18/16 08:44 05/17/16 05/18/16 05/19/16 05:59 05:59 05:59 Intake Total 2277 2121 Output Total 1190 1105 Balance 1087 1016 PT 20.0 SEC (12.0-15.0) H 05/17/16 04:30 INR 1.70 (0.83-1.16) H 05/17/16 04:30 Physical Exam - Physical Exam General Appearance: other (chronically-ill appearing) Respiratory: other (coarse anteriorly) Cardiac/Chest: tachycardia Extremities: swelling (+dependent edema) ICD10 Worksheet Patient Problems: Problems Problem Status Onset Hypoxia Acute Pneumonia Acute
--- NOTE | 2016-05-18 15:29 | PCMIDPN ---
Assessment/Plan: Assessment/Plan: 1. Sepsis 04/15 to Peritonitis/abdominal abscess s/p CHARLIE drain placement, ongoing leak: - CHARLIE drain placed on 05/09/16. Not much out overnight but RN flushed today and was able to get more drainage out of around 100cc thus far (purulent material, brownish) -Currently on Dapto, Aztreonam, Flagyl, and micafungin for broad coverage. -Cx from recent drain in progress. GS with GNR, GVR, and cx: E. fecalis, and Lactobacillus. Sensitivities reviewed-sensitive to Dapto. - PRevious cx with E. fecalis and PsA from abd abscess (04/20/16). -I Called [facility] earlier this morning and had them update the sensitivity profile. PsA is intermediate to aztreonam -wbc up today but likely multifactorial. -blood cx from 05/04 ngtd - will check CPK since on Dapto. Will add to blood work for AM. - Given fevers,--will order blood cx to reevaluate. If doesn't improve, worsening wbc, fevers, resp sx, etc, then recommend f/u CT chest/abd/pelvis to further evaluate. -Care coordinated with Intensitivist, hospitalist earlier today. 2. Bilateral infiltrates: fluctuating - Uncertain etiology. d/d pulm edema/vol overload, vs new pneumonia, vs dapto hypersensitivity pneumonitis. -Peripheral eosinophils fluctuating, and acutally less today. -Discussed with Dr. Burch. If doesn't improve with HD, then recommend bronch to further evaluate, send cultures and send bronch wash for eosinophils. - 3. Rash from levaquin 4. Multiple antibiotic reactions. Meds -dapto 540mg q48-05/09/16 -aztreonam 500mg q8-05/09/16 -flagyl 500mg q8- -micafungin 100mg daily- 05/09/16 Subjective: intermittent fevers. Acute increase in o2 requirements, resp sx from yesterday. Transfered back to ICU. REciveing HD at present. Some dysnea. Objective: Vital Signs Temp Pulse Resp BP Pulse Ox 38.6 C H 118 H 21 H 162/83 H 99 05/18/16 12:00 05/18/16 12:00 05/18/16 12:00 05/18/16 12:00 05/18/16 12:00 Microbiology 05/09/16 17:45 Gram Stain - Final Abdomen - Aspirate Anaerobic Culture - Final Enterococcus Faecalis Lactobacillus Species Laboratory Results 05/18/16 08:44 05/18/16 08:44 05/17/16 05/18/16 05/19/16 05:59 05:59 05:59 Intake Total 2277 2121 Output Total 1190 1105 Balance 1087 1016 - Physical Exam General Appearance: other (in and out of sleepiness. some dyspnea.) Respiratory: coarse breath sounds Cardiac/Chest: tachycardia Extremities: other (left picc line.), No swelling Abdomen: normal bowel sounds, distended, other (CHARLIE drain with creamy brown material) Male Genitalia: amado Skin: No erythema ICD10 Worksheet Patient Problems: Problems Problem Status Onset Hypoxia Acute Pneumonia Acute
--- NOTE | 2016-05-18 15:48 | SOAPPROG ---
SOAP Progress Note Assessment/Plan: Assessment/Plan 81yo M c duodenal perf s/p ex lap, repair and washout x2. Persistent leak - Mental status ok today - Significant resp distress today. REceived lasix, planning on HD - Abd remains soft and NTTP. CHARLIE continues to drain purulent material albeit slowing - Will defer CT c PO contrast until resp issues corrected, hopefully tomorrow but not behaving as though he has large undrained abd fluid collection 05/06/16 13:11 05/07/16 12:00 05/07/16 12:01 05/08/16 12:18 05/09/16 09:10 05/10/16 09:26 05/13/16 13:09 05/14/16 11:20 05/15/16 11:09 05/16/16 10:43 05/17/16 11:28 05/18/16 15:47 Subjective: Having significant issues with breathing today Objective: Vital Signs Temp Pulse Resp BP Pulse Ox 38.6 C H 118 H 21 H 162/83 H 99 05/18/16 12:00 05/18/16 12:00 05/18/16 12:00 05/18/16 12:00 05/18/16 12:00 Microbiology 05/09/16 17:45 Gram Stain - Final Abdomen - Aspirate Anaerobic Culture - Final Enterococcus Faecalis Lactobacillus Species Laboratory Results 05/18/16 08:44 05/18/16 08:44 05/17/16 05/18/16 05/19/16 05:59 05:59 05:59 Intake Total 2277 2121 Output Total 1190 1105 Balance 1087 1016 PT 20.0 SEC (12.0-15.0) H 05/17/16 04:30 INR 1.70 (0.83-1.16) H 05/17/16 04:30 ICD10 Worksheet Patient Problems: Problems Problem Status Onset Hypoxia Acute Pneumonia Acute
--- NOTE | 2016-05-18 17:06 | HOSPPROG ---
Hospitalist Progress Note Assessment/Plan: Assessment: 81-year-old p/w ATN and recurrent intra-abdominal abscess c/b acute hypoxic respiratory failure and SIRS Plan: # Peritonitis/intra-abdominal abscess. s/p multiple I&Ds and perc drain placed by IR, better output with irrigation - duodenal perf s/p repair with omental patch - abx per ID with dapto/aztreonam/micafungin/flagyl # MILLA. Oliguric, likely ATN, requiring ongoing HD # Acute hypoxic respiratory failure. Evidenced by SpO2 50% and requiring up to 25LPM 100% FiO2 high-flow w/ ongoing tachypnea (RR40-50) today, suspect 2/2 volume overload vs. PNA - d/w Dr. Morrow, UOP from 80mg IV lasix 500cc, get additional volume removal w/ HD today - cont current Abx - if status worsening, get chest CT w/o contrast and bronch # SIRS. Tachycardic/Tachypneic and worsening leukocytosis, unclear if there is additional source of infxn - get BCx - d/w Dr. Meyer, prior pseudomonas intermit sensitive to aztreonam, continue, but adjust to zosyn if worsening - consider worsening intra-abdominal source, and if symptomatic from an abd standpoint, would rec re-ex-lap # Basilic vein superficial thrombosis. PICC removed, if resp status worsening consider systemic anticoagulation - hep ppx # Acute encephalopathy. Evidenced by global brain dysfunction characterized as poor responsiveness, inability to follow commands, this is an acute change from his baseline, most likely secondary to the toxic effects of Ativan and potential infection -ABG does not demonstrate any significant hypercapnia -lactic acid level within normal limits # Thrombocytopenia. HIT panel neg, cont to monitor # Drug rash. 2/2 levofloxacin Diet. TPN, volume reduced Prophylaxis. High risk patient, heparin subcu Code. Full code Disposition. Anticipated discharge uncertain, remains critically ill 40 minutes of critical care time spent with patient, at bedside, [id number], addressing the issues above and coordinating care months the patient has numerous ICU providers. The patient remains critically ill and high risk for worsening morbidity and/or mortality. Subjective: Patient's respiratory status worsening overnight, discussed with Dr. Lopez from night filler, patient is visibly tachypneic and received Ativan Objective: Vital Signs Temp Pulse Resp BP Pulse Ox 37.2 C 126 H 24 H 152/74 H 98 05/18/16 16:00 05/18/16 16:12 05/18/16 16:12 05/18/16 16:00 05/18/16 16:12 Microbiology 05/09/16 17:45 Gram Stain - Final Abdomen - Aspirate Anaerobic Culture - Final Enterococcus Faecalis Lactobacillus Species Laboratory Results 05/18/16 08:44 05/18/16 08:44 05/17/16 05/18/16 05/19/16 05:59 05:59 05:59 Intake Total 2277 2121 Output Total 1190 1105 650 Balance 1087 1016 -650 PT 20.0 SEC (12.0-15.0) H 05/17/16 04:30 INR 1.70 (0.83-1.16) H 05/17/16 04:30 - Physical Exam Constitutional: not in pain, chronically ill appearing, uncomfortable Cardiovascular: systolic murmur (2/6 at the sternum and apex), tachycardia ( Sinus rhythm), edema (Trace bilateral lower extremity), No irregularly irregular Respiratory: reduced air movement (Bilateral bases), respiratory distress ( Visibly labored breathing and use of accessary muscles), rhonchi (On inspiration ), No expiratory wheeze, No bronchial breath sounds Gastrointestinal: normoactive bowel sounds, soft, non-tender abdomen, no palpable masses, other (Tube in place) Skin: no rashes or abrasions, no fluctuance, no induration Neurologic: other (Unable to follow commands) Psychiatric: encephalopathic, anxious, other (Somnolent, poorly responsive) ICD10 Worksheet Patient Problems: Problems Problem Status Onset Hypoxia Acute Pneumonia Acute
--- NOTE | 2016-05-18 18:07 | GCON ---
PULMONARY CRITICAL CARE CONSULTATION REASON FOR CONSULTATION: Increasing shortness of breath and hypoxemia associated with pulmonary infiltrates in a 81-year-old gentleman status post abdominal perforation and ongoing peritonitis. HISTORY: The patient was admitted this hospitalization on 05/04. At that time , he had rising BUN and creatinine, and was admitted for renal failure. Problems have persisted and he is on hemodialysis. He is status post duodenal perforation with peritonitis, abscesses and multiple positive cultures from his peritoneum. He is on broad-spectrum antibiotics and antifungals as outlined below. He was moved to the intensive care unit secondary to increasing hypoxemia and shortness of breath. He is intermittently febrile, tachycardic, as well as tachypneic. Chest x-ray shows bilateral pulmonary infiltrates, somewhat worse related to the left upper lobe. He also has basilar atelectasis and likely small effusions. He is on Lasix, making increased urine, but with input significantly greater than output by almost 5 L over the last 3 days. He is getting hemodialysis every other day. TPN is being used for nutrition. Other problems include a thrombosis of the basilic vein, altered mental status, biliary stents, and ongoing failure to thrive. He is being followed by Surgery , Infectious Disease, Renal, and the hospitalist service. He was in the intensive care unit until several days ago, at which time he was moved to the floor. PAST MEDICAL HISTORY: Most pertinently related to the bowel perforations, peritonitis, multiple abscesses, renal failure, and other issues as outlined above. CURRENT MEDICATIONS: Multiple antibiotics including aztreonam, daptomycin, metronidazole, micafungin. He is on insulin p.r.n., p.r.n. Ativan, DuoNeb, subcu heparin, 80 mg twice a day of Lasix, and acetaminophen. SOCIAL HISTORY: The patient has been at [facility]. He has sisters who are quite supportive. DRUG ALLERGIES: Morphine. REVIEW OF SYSTEMS: Difficult to obtain. FAMILY HISTORY: There is a history of blood clot in his family and apparently BPH with urinary retention. PHYSICAL EXAMINATION: GENERAL: An elderly gentleman, who is tachypneic and has little in the way of verbal responses, simple yes and no. VITAL: SIGNS: Blood pressure is approximately 160/80, heart rate 115 with sinus tachycardia on the monitor, respiratory rate is 22 and somewhat labored. He is on a Vapotherm mask. Temperature is 38.6. HEENT: Remarkable for dry mucous membranes. There is no obvious jugular venous distention, but it is difficult to assess. CHEST: Decreased breath sounds bilaterally with rales anteriorly and at the bases. There are no obvious rhonchi. No congestion. He does have some end-expiratory wheezes. HEART: Tachycardic. There is a soft systolic murmur. A gallop cannot be excluded. ABDOMEN: Not distended, but relatively firm. Bowel sounds are diminished. A Federico-Deleon drain is present. A Wesley catheter is in place. EXTREMITIES: 1+ edema. NEUROLOGIC: Nonfocal. He moves all extremities weakly. He appears somewhat confused, oriented to person and, I believe, place. DATA REVIEWED: Chest x-rays were reviewed. Infiltrates, atelectasis, and effusions are present bilaterally with an increased left upper lobe infiltrate. There is also an infiltrate in the right upper lobe, but significantly less and likely in the right lower lobe laterally. Hemidiaphragms are high. Hypoventilatory changes are present as well. LABORATORY: White blood cell count is 18,500, hematocrit 24.5, platelets are 226,000. Arterial blood gas on nasal oxygen showed a pH of 7.37, pCO2 of 40, and pO2 of 63. Lactate was 1. Sodium is 137, potassium 4.0, CO2 is 23, BUN is 69 with a creatinine of 4.2, glucose is 155. Liver function studies are normal. Albumin is 2.2. ASSESSMENT: 1. Increased shortness of breath and hypoxemia. This is associated with increased left upper lobe infiltrate, as well as bibasilar atelectasis or consolidation and some patchy infiltrates on the right. Much of this may be due to volume overload/congestive heart failure; however, a component of pneumonia or postinflammatory fibrotic change cannot be excluded. If needed, bronchoscopy could be performed to try and look for resistant bacteria. This will be discussed further with Infectious Disease. For now, I feel that diuresis needs to be continued and hemodialysis needs to be done with aggressive fluid removal. Chest x-ray can be followed after this. If the chest x-ray is significantly improves, it would argue much more for congestive heart failure/pulmonary edema as opposed to active pneumonia or postinflammatory change. 2. Peritonitis with multiple positive cultures. He is on broad-spectrum antibiotics and antifungal therapy. Infectious Disease is following. 3. Acute renal failure, on hemodialysis. 4. Nutrition: TPN. Still has little in the way of bowel function. 5. History of basilic vein thrombosis, on prophylactic heparin. 6. History of biliary stents. 7. Pleural effusions, secondary to fluid retention/congestive heart failure/ subdiaphragmatic issues. Previous thoracentesis did not suggest an infectious etiology. PLAN: The patient will be kept in the intensive care unit. Respiratory status will be followed closely. Chest x-ray and blood gas will be followed. Routine laboratory data will be obtained on a daily basis. Aggressive diuresis and fluid removal with hemodialysis will be attempted. I will discuss the patient' s case with Infectious Disease and if indicated, bronchoscopy could be considered. Further plans and recommendations will be made is made based on his progress over the next 12-24 hours. /[id number]/MODL MTDD
[2016-05-18] MEDS ORDERED: HEPARIN 50,000 UNIT/10 ML VIAL ONE (19:03)
[2016-05-18] MEDS: FUROSEMIDE 100 MG/10 ML VIAL IV SCH (19:42)
[2016-05-18] MEDS: TPN 1 EA BAG IV SCH (20:39)
[2016-05-18] MEDS: ACETAMINOPHEN 650 MG SUPP PR PRN (20:57)
[2016-05-19] MEDS: INSULIN REGULAR, HUMAN 100 UNIT/1 ML VIAL STANDARD SC SCH ×5 (00:50→23:44)
[2016-05-19] MEDS: AZTREONAM 0.5 GM in NS 50 ML IV SCH ×4 (00:52→21:42)
[2016-05-19 05:29] LABS: ADD DIFF? YES; ADD MORPH? NO; ADD SCAN? NO; ATYPICAL LYMPHOCYTE FLAG 20 (0-99); FRAGMENT RBC FLAG 10 (0-99); HEMATOCRIT 21.5 % (40.0-51.0); LEFT SHIFT FLG 40 (0-99); LIPEMIA HEMOLYSIS FLAG 80 (0-99); MEAN CELL HEMOGLOBIN 30.6 pg (27.9-34.1); MEAN CELL HEMOGLOBIN CONCENTR. 32.6 g/dL (32.4-36.7); MEAN CELL VOLUME 93.9 fL (81.5-99.8); MEAN PLATELET VOLUME 10.2 fL (8.7-11.7); PLATELET CLUMPS FLAG 0 (0-99); PLATELET COUNT 189 10^3/uL (150-400); RED BLOOD CELL COUNT 2.29 10^6/uL (4.40-6.38); RED CELL DISTRIBUTION WIDTH 18.3 % (11.5-15.2)
[2016-05-19 05:48] LABS: ANION GAP 10 mEq/L (8-16); CALCIUM 8.6 mg/dL (8.5-10.4); CARBON DIOXIDE 26 mEq/l (22-31); CHLORIDE 102 mEq/L (97-110); GLOMERULAR FILTRATION RATE 20; GLUCOSE 122 mg/dL (70-100); MAGNESIUM 2.1 mg/dL (1.6-2.3); POTASSIUM 3.6 mEq/L (3.5-5.2); SODIUM 138 mEq/L (134-144)
[2016-05-19] MEDS: HEPARIN 5,000 UNIT/0.5 ML SYR SC SCH ×3 (05:55→23:36)
[2016-05-19 06:05] LABS: HYPOCHROMIA 2+; MACROCYTES 1+; PLATELET ESTIMATE ADEQUATE (ADEQ)
[2016-05-19] MEDS: IPRATROPIUM/ALBUTEROL 3 ML DEYVIAL IH PRN ×3 (08:35→22:30)
[2016-05-19] MEDS: MICAFUNGIN NA 100 MG in NS 100 ML IV SCH (09:10)
[2016-05-19] MEDS: FUROSEMIDE 100 MG/10 ML VIAL IV SCH ×2 (09:16→16:09)
--- NOTE | 2016-05-19 11:10 | SOAPPROG ---
SOM[facility]Y Progress Note Assessment/Plan: Assessment:Plan: ARF-now non-oliguric -1500 ml out last 24 hours -Hd yesterday -plan for Hd tomorrow -ATN, waiting for recovery CKD-likely has some underlying CKD -creatinine had been running 1.4 - 2 since his admit in February -levels prior to that are unknown -CKD monica represents ATN with partial recovery Access-temporary R IJ catheter Edema/Volume overload-better with ultrafiltration with dialysis and increasing urine output 05/19/16 11:07 Subjective: sleeping Objective: Vital Signs Temp Pulse Resp BP Pulse Ox 36.8 C 95 24 H 147/90 H 93 05/19/16 07:52 05/19/16 07:52 05/19/16 07:52 05/19/16 07:52 05/19/16 07:52 Laboratory Results 05/19/16 05:10 05/19/16 05:10 05/18/16 05/19/16 05/20/16 05:59 05:59 05:59 Intake Total 2121 2448 Output Total 1105 5145 Balance 4012 -3475 PT 20.0 SEC (12.0-15.0) H 05/17/16 04:30 INR 1.70 (0.83-1.16) H 05/17/16 04:30 Physical Exam - Physical Exam General Appearance: no apparent distress EENT: normal ENT inspection Neck: normal inspection Respiratory: decreased breath sounds, No respiratory distress Cardiac/Chest: systolic murmur, other (irregular) Abdomen: normal bowel sounds, non-tender, distended Extremities: swelling (decreased) ICD10 Worksheet Patient Problems: Problems Problem Status Onset Hypoxia Acute Pneumonia Acute
[2016-05-19 11:44] LABS: BASE EXCESS 0.9 mEq/L (-2.5-2.5); BICARBONATE 25 mEq/L (22-26); MEASURED OXYGEN SATURATION 96 % (92-95); PCO2 39 mmHg (34-38); PO2 75 mmHg (65-75); TCO2 26 mEq/L (23-27)
[2016-05-19 12:18] LABS: O2 CONCENTRATIION 90 % (0-100)
[2016-05-19 12:19] LABS: P/F RATIO 83 RATIO
--- NOTE | 2016-05-19 12:54 | SOAPPROG ---
SOAP Progress Note Assessment/Plan: Assessment: 81yo male s/p repair/washout of duodenal ulcer, readmitted for acute renal failure, intraabdominal abscess s/p IR drainage during this stay. Acute respiratory failure PE slightly confused but responds to questions appropriately appears comfortable although on high flow O2 Chest B/L left worse than right crackles Abdomen very soft to palpation, IR drain in place with 30cc/24hrs Lower ext no edema Plan: may need bronch today CT of abdomen in 1-2 days will discuss with Dr Dunbar 05/05/16 13:49 05/19/16 12:49 Objective: Vital Signs Temp Pulse Resp BP Pulse Ox 37.2 C 98 23 H 153/80 H 97 05/19/16 12:00 05/19/16 12:00 05/19/16 12:00 05/19/16 12:00 05/19/16 12:00 Laboratory Results 05/19/16 05:10 05/19/16 05:10 05/18/16 05/19/16 05/20/16 05:59 05:59 05:59 Intake Total 5461 1819 Output Total 7105 8477 Balance 1016 -8911 PT 20.0 SEC (12.0-15.0) H 05/17/16 04:30 INR 1.70 (0.83-1.16) H 05/17/16 04:30 ICD10 Worksheet Patient Problems: Problems Problem Status Onset Hypoxia Acute Pneumonia Acute
--- NOTE | 2016-05-19 14:27 | PDINTPN ---
[facility] Progress Note Assessment/Plan: Assessment: Acute respiratory failure with diffuse bilateral pulmonary infiltrates. Some of these changes are likely related to volume overload and renal failure. However they did not improve significantly despite 4 L fluid removal in hemodialysis and increasing urinary diuresis. Doubt pneumonia but cannot rule this out completely. ARDS certainly possible as is an interstitial process perhaps related to daptomycin. I will discuss this further with Infectious Disease. Bronchoscopy with biopsies may be needed. If so, he will likely end up on the ventilator, at least for a short of time. Peritonitis, abdominal abscesses/infection. Per surgery and Infectious Disease. Acute renal failure. Putting out more urine, non oliguric now. BUN and creatinine coming down. On every other day hemodialysis. Scheduled again for tomorrow. Superficial DVT related to the right arm. On prophylactic heparin. Nutrition: TPN. Plan: Continue current level of supportive care in the intensive care unit. Follow chest x-ray and blood gas. I will discuss issues with Infectious Disease and Renal. For hemodialysis again tomorrow. I would like to have significant fluid removal again if possible. Diuresis should be continued. If indicated, bronchoscopy will be done with lavage for cultures and cytologies and cell count, possible biopsies?. This will likely necessitate ventilatory support which hopefully would be quite brief? All the above was discussed with the patient's , the patient, nursing, and the ICU multi disciplinary team. 45 minutes of critical care time was spent directly with the patient. Subjective: Breathing is more comfortable today. More alert, responsive and appropriate. Not confused. Has some cough intermittently, not bringing up any sputum. Remains on high-flow oxygen by Vapotherm. Objective: Vital Signs Temp Pulse Resp BP Pulse Ox 37.2 C 98 23 H 153/80 H 97 05/19/16 12:00 05/19/16 12:00 05/19/16 12:00 05/19/16 12:00 05/19/16 12:00 Laboratory Results 05/19/16 05:10 05/19/16 05:10 05/18/16 05/19/16 05/20/16 05:59 05:59 05:59 Intake Total 0049 4368 Output Total 1109 1101 Balance 1016 -7965 PT 20.0 SEC (12.0-15.0) H 05/17/16 04:30 INR 1.70 (0.83-1.16) H 05/17/16 04:30 Laboratory Tests 05/19/16 05/19/16 05:10 11:40 pCO2 39 H pO2 75 ABG pH 7.42 ABG O2 Saturation 96 H Total O2 Concentration 30.0 O2 Concentration % 90 Calcium 8.6 Phosphorus 2.7 Magnesium 2.1 Creatine Kinase 22 CXR: No change in bilateral infiltrates. This is despite aggressive fluid removal yesterday with hemodialysis: Approximately 4 L. Physical Exam - Physical Exam General Appearance: alert (Responsive, appropriate), mild distress (Mild tachypneic) EENT: other (Vapotherm in place) Neck: normal inspection Respiratory: decreased breath sounds, rales (Fine rales present in the lower lung zones both posteriorly and anteriorly), No rhonchi, No wheezing Cardiac/Chest: tachycardia (Sinus) Abdomen: soft, No normal bowel sounds (Decreased, few present), No non-tender ( Mild tenderness) Male Genitalia: other (Wesley catheter in place, 1100 mL out yesterday) Skin: warm/dry, pallor Extremities: pedal edema Neuro/Psych: no motor/sensory deficits (Moves all extremities equally), No cognition abnormalities (Currently. Has been confused at times) ICD10 Worksheet Patient Problems: Problems Problem Status Onset Hypoxia Acute Pneumonia Acute
[2016-05-19] MEDS ORDERED: POTASSIUM Cl (KCl) 50 ML IV ONE (16:00)
[2016-05-19] MEDS: DAPTOmycin 540 MG in NS 100 ML IV SCH (16:11)
--- NOTE | 2016-05-19 18:32 | HOSPPROG ---
Hospitalist Progress Note Assessment/Plan: Assessment: 81-year-old p/w ATN and recurrent intra-abdominal abscess c/b acute hypoxic respiratory failure and SIRS Plan: # Peritonitis/intra-abdominal abscess. s/p multiple I&Ds and perc drain placed by IR, better output with irrigation - duodenal perf s/p repair with omental patch - abx per ID with dapto/aztreonam/micafungin/flagyl # MILLA. Now non-oliguric, likely ATN, requiring ongoing HD qod # Acute hypoxic respiratory failure. Evidenced by SpO2 50% and requiring up to 25LPM 100% FiO2 high-flow w/ ongoing tachypnea (RR40-50) today, suspect 2/2 volume overload vs. PNA vs. ARDS - tachypnea improving on vapotherm and w/ 4L volume removed 05/18 - cont current Abx - if status worsening, get chest CT w/o contrast and bronch - goals of care d/w patient and family, patient prefers to remain aggressive w/ his goals, and I did explain to him that this is our current course of action, but if, at any time, he decides that he would prefer a more palliative route, we will provide him w/ such and a pall care consultation # SIRS. Tachycardic/Tachypneic and worsening leukocytosis, unclear if there is additional source of infxn - repeat BCx NGTD - consider worsening intra-abdominal source, and if symptomatic from an abd standpoint, would rec re-ex-lap # Basilic vein superficial thrombosis. PICC removed, if resp status worsening consider systemic anticoagulation - hep ppx # Acute encephalopathy. Evidenced by global brain dysfunction characterized as poor responsiveness, inability to follow commands, this is an acute change from his baseline, most likely secondary to the toxic effects of Ativan and potential infection -ABG does not demonstrate any significant hypercapnia -lactic acid level within normal limits -improving today # Thrombocytopenia. HIT panel neg, cont to monitor # Drug rash. 2/2 levofloxacin Diet. TPN, volume reduced Prophylaxis. High risk patient, heparin subcu Code. Full code Disposition. Anticipated discharge uncertain, remains critically ill Subjective: Patient is somewhat discouraged by his worsening and lack of improvement Objective: Vital Signs Temp Pulse Resp BP Pulse Ox 37.1 C 104 H 16 145/100 H 99 05/19/16 16:00 05/19/16 16:00 05/19/16 16:00 05/19/16 16:00 05/19/16 16:00 Laboratory Results 05/19/16 05:10 05/19/16 05:10 05/18/16 05/19/16 05/20/16 05:59 05:59 05:59 Intake Total 2122 7678 1206 Output Total 1108 5112 845 Balance 1016 -6855 361 PT 20.0 SEC (12.0-15.0) H 05/17/16 04:30 INR 1.70 (0.83-1.16) H 05/17/16 04:30 - Time Spent With Patient Time Spent with Patient: greater than 35 minutes Time Spent with Patient: Greater than 35 minutes spent on this patients care, greater than 50% of time spent counseling, educating, and coordinating care regarding the above mentioned plan. - Physical Exam Constitutional: no apparent distress, not in pain, chronically ill appearing, No uncomfortable Cardiovascular: tachycardia, edema (Trace bilateral lower extremity), No irregularly irregular Respiratory: reduced air movement (Left lung), rhonchi (On inspiration bilaterally), No expiratory wheeze, No bronchial breath sounds Gastrointestinal: tenderness (Mild to moderate palpation), No normoactive bowel sounds (Hypoactive bowel sounds) Neurologic: AAOx3 Psychiatric: not anxious, flat affect, No agitated ICD10 Worksheet Patient Problems: Problems Problem Status Onset Hypoxia Acute Pneumonia Acute
[2016-05-19] MEDS ORDERED: METOCLOPRAMIDE 10 MG/2 ML VIAL ONE (18:36)
[2016-05-19] MEDS ORDERED: METOPROLOL TARTRATE 5 MG/5 ML INJ ONE (18:41)
--- NOTE | 2016-05-19 18:46 | CPEKG ---
Heart Rate: 163 RR Interval: 368 P-R Interval: 118 QRSD Interval: 82 QT Interval: 280 QTC Interval: 462 P [place]: 220 QRS [place]: 78 T Wave [place]: 22 EKG Severity - ABNORMAL ECG - EKG Impression: SUPRAVENTRICULAR TACHYCARDIA EKG Impression: ST DEPRESSION, PROBABLY RATE RELATED EKG Impression: COMPARED WITH 03/07/2016, SVT NOW PRESENT Electronically Signed By: Debo Marte 20-May-2016 15:11:31
[2016-05-19] MEDS ORDERED: METOPROLOL TARTRATE 5 MG/5 ML INJ IVP ONE (19:00)
[2016-05-19] MEDS ORDERED: ADENOSINE 6 MG/2 ML VIAL IVP ONE (19:02)
[2016-05-19] MEDS ORDERED: DILTIAZEM 25 MG/5 ML VIAL IVP ONE (19:30)
[2016-05-19] MEDS: DILTIAZEM 125 MG in D5W 125 ML IV SCH (20:10)
[2016-05-19] MEDS: TPN W/ FAMOTIDINE 1 EA BAG IV SCH (21:42)
--- NOTE | 2016-05-19 22:31 | PCMIDPN ---
Assessment/Plan: Assessment: Continued abdominal fluid collection status post duodenal leak. Complications continue. B infiltrates new HAP vs. medication (probably Daptomycin) pulmonary effects. Will discontinue Daptomycin and observe. Patient remains on aztreonam , metronidazole and micafungin but is without gram positive coverage off both Vanco and Daptomycin. Off of Vancomycin due to ARF possibly incited by Vanco use. May wish to attempt PCN based coverage such as Zosyn, but will discuss with colleagues in ID. Plan: 1. Discontinue Daptomycin. 2. Observe for pulmonary changes. 3. Consider zosyn as primary agent in lieu of dapto, aztreonam and metronidazole. Subjective: Patient is resting in his ICU bed. No new changes. Now with fevers. Objective: Daptomycin # aztreonam # metronidazole # micafungin # Vital Signs Temp Pulse Resp BP Pulse Ox 37.1 C 95 23 H 140/95 H 100 05/19/16 16:00 05/19/16 20:53 05/19/16 20:53 05/19/16 18:49 05/19/16 20:53 Laboratory Results 05/19/16 05:10 05/19/16 05:10 05/18/16 05/19/16 05/20/16 05:59 05:59 05:59 Intake Total 2126 2942 1207 Output Total 1102 1522 846 Balance 1998 -0466 361 - Physical Exam General Appearance: WD/WN, no apparent distress, No alert Respiratory: normal breath sounds, crackles, coarse breath sounds, No lungs clear Cardiac/Chest: irregularly irregular, No tachycardia Extremities: non-tender, normal inspection Skin: normal color, warm/dry, No rash ICD10 Worksheet Patient Problems: Problems Problem Status Onset Hypoxia Acute Pneumonia Acute
[2016-05-20] MEDS: LORazepam 2 MG/ML INJ IV PRN (01:54)
[2016-05-20 02:24] LABS: BASE EXCESS -1.8 mEq/L (-2.5-2.5); BICARBONATE 22 mEq/L (22-26); MEASURED OXYGEN SATURATION 89 % (92-95); PCO2 35 mmHg (34-38); PO2 56 mmHg (65-75); TCO2 23 mEq/L (23-27)
[2016-05-20] MEDS: IPRATROPIUM/ALBUTEROL 3 ML DEYVIAL IH PRN (02:24)
[2016-05-20 02:33] LABS: ADD DIFF? YES; ADD MORPH? NO; ADD SCAN? NO; ATYPICAL LYMPHOCYTE FLAG 10 (0-99); FRAGMENT RBC FLAG 10 (0-99); HEMATOCRIT 24.1 % (40.0-51.0); HEMOGLOBIN 7.9 g/dL (13.7-17.5); LEFT SHIFT FLG 30 (0-99); LIPEMIA HEMOLYSIS FLAG 80 (0-99); MEAN CELL HEMOGLOBIN 30.7 pg (27.9-34.1); MEAN CELL HEMOGLOBIN CONCENTR. 32.8 g/dL (32.4-36.7); MEAN CELL VOLUME 93.8 fL (81.5-99.8); MEAN PLATELET VOLUME 9.9 fL (8.7-11.7); PLATELET CLUMPS FLAG 0 (0-99); PLATELET COUNT 286 10^3/uL (150-400); RED BLOOD CELL COUNT 2.57 10^6/uL (4.40-6.38); RED CELL DISTRIBUTION WIDTH 18.3 % (11.5-15.2)
[2016-05-20 02:53] LABS: ALBUMIN 2.4 g/dL (3.5-5.0); ANION GAP 13 mEq/L (8-16); CALCIUM 9.1 mg/dL (8.5-10.4); CARBON DIOXIDE 23 mEq/l (22-31); CHLORIDE 103 mEq/L (97-110); CREATININE 4.1 mg/dL (0.7-1.3); GLOMERULAR FILTRATION RATE 14; GLUCOSE 144 mg/dL (70-100); POTASSIUM 3.8 mEq/L (3.5-5.2); SODIUM 139 mEq/L (134-144)
[2016-05-20] MEDS ORDERED: LIDOCAINE 2% JELLY 5 ML TUBE ONE (03:24)
[2016-05-20 03:27] LABS: HYPOCHROMIA 1+; POLYCHROMASIA 1+
[2016-05-20] MEDS ORDERED: PROPOFOL/EMULSION 1,000 MG/100 ML BOTTLE IV ONE (03:36)
[2016-05-20] MEDS ORDERED: MIDAZOLAM 2 MG/2 ML VIAL ONE (03:36)
[2016-05-20] MEDS ORDERED: fentaNYL 100 MCG/2 ML INJ ONE (03:36)
[2016-05-20] MEDS ORDERED: LIDOCAINE 1% 30 ML SDV ONE (03:42)
[2016-05-20] MEDS ORDERED: FUROSEMIDE 40 MG/4 ML VIAL IVP ONE (04:17)
[2016-05-20] MEDS ORDERED: fentaNYL/NACL 100 ML IV SCH (04:30)
[2016-05-20] MEDS ORDERED: PROPOFOL/EMULSION 100 ML IV SCH (04:41)
--- NOTE | 2016-05-20 04:42 | GPN ---
[f rep st] PROCEDURE NOTE DATE OF PROCEDURE: 05/20/2016 PROCEDURE: Flexible fiberoptic bronchoscopy. REASON FOR PROCEDURE: Hypoxemic respiratory failure with pneumonia, possible mucous plugging, need for cultures. DESCRIPTION OF PROCEDURE: The patient was seen emergently due to hypoxemia refractory to high-flow oxygen. His significant other and daughter were called but did not answer. The patient was unable to give consent, so implied consent was used given the emergent nature of the procedure. The entire procedure was performed in the intensive care unit, with the patient on blood pressure, E KG, and oximetry monitoring. It was my assessment that there was no significant risk of airborne in fection from the procedure. N95 masks were used by all personnel during the procedure. The patient 's oropharynx was anesthetized with topical 1% lidocaine and a bite block was placed between his jeana th. The bronchoscope was advanced through the bite block into the vocal cords, which moved normally . 1% lidocaine was used on the airways for anesthesia. The bronchoscope was advanced through the v ocal cords into the main trachea. An 8.0 endotracheal tube was advanced over the bronchoscope and w as secured in place. The bronchoscope was initially in the right main stem, then was withdrawn to t he trachea. I examined all airways bilaterally, and encountered normal mucosa with minimal secretio ns. Washings were taken from throughout the airways and lavage was performed of the right upper lob e with return of slightly cloudy fluid. The patient tolerated the procedure well, with saturations in the 90s throughout on high-flow oxygen. The patient received 4 mg of Versed, 100 mcg of fentanyl , and 60 mg of propofol during the procedure. Cultures will be sent for bacterial and fungal stains and cultures. There were no complications apparent at the end of the procedure. There was no sign ificant bleeding related to the procedure. /[id number]/MODL
[2016-05-20 04:51] LABS: BASE EXCESS -3.2 mEq/L (-2.5-2.5); BICARBONATE 23 mEq/L (22-26); MEASURED OXYGEN SATURATION 99 % (92-95); PCO2 51 mmHg (34-38); PO2 211 mmHg (65-75); TCO2 25 mEq/L (23-27)
[2016-05-20 04:53] LABS: O2 CONCENTRATIION 100 % (0-100); P/F RATIO 211 RATIO; PRESSURE SUPPORT 12; SIMV YES
[2016-05-20] MEDS ORDERED: MIDAZOLAM 2 MG/2 ML VIAL IVP ONE (05:00)
[2016-05-20] MEDS ORDERED: fentaNYL 100 MCG/2 ML INJ IVP ONE (05:00)
[2016-05-20] MEDS: AZTREONAM 0.5 GM in NS 50 ML IV SCH (06:23)
[2016-05-20] MEDS: HEPARIN 5,000 UNIT/0.5 ML SYR SC SCH ×3 (06:24→21:57)
[2016-05-20] MEDS: INSULIN REGULAR, HUMAN 100 UNIT/1 ML VIAL STANDARD SC SCH ×3 (06:34→18:29)
[2016-05-20] MEDS ORDERED: ALBUMIN 25% 100 ML SOLN IV ONE ×2 (06:47→09:37)
[2016-05-20 06:54] LABS: PLATELET ESTIMATE ADEQUATE (ADEQ)
[2016-05-20] MEDS: CHLORHEXIDINE GLUCONATE 15 ML UDL PO SCH ×2 (08:51→20:38)
[2016-05-20] MEDS ORDERED: FAMOTIDINE 20 MG/NACL 50 ML IV SCH (09:00)
[2016-05-20] MEDS ORDERED: ALBUMIN 25% 100 ML IV ONE (09:18)
[2016-05-20] MEDS ORDERED: LIDOCAINE 2% JELLY 20 ML (UROJECT) ONE (10:04)
--- NOTE | 2016-05-20 10:13 | SOAPPROG ---
SOAP Progress Note Assessment/Plan: Assessment:Plan: Respiratory-unstable overnite -now re-intubated -afib -discussed with spouse, Dr. Keen and Dr. Tejada -concern about Dapto-induced lung reaction -changed to Zosyn ARF-remains non-oliguric -1625 ml out last 24 hours -Hd today -BP low on dialysis with ultrafiltration -albumin given -plan for Hd tomorrow -ATN, waiting for recovery -we will see if Zosyn has any adverse effect on urine output -doubt AIN had primary role in this, but impossible to tell at this time CKD-likely has some underlying CKD -creatinine had been running 1.4 - 2 since his admit in February -levels prior to that are unknown -CKD lalitoley represents ATN with partial recovery Access-temporary R IJ catheter Edema/Volume overload-better with ultrafiltration with dialysis and increasing urine output -respiratory status requiring further efforts to bring this down even further 05/20/16 10:09 Subjective: decreased BP on dialysis Objective: Vital Signs Temp Pulse Resp BP Pulse Ox 37.2 C 101 H 28 H 120/69 100 05/20/16 08:00 05/20/16 09:52 05/20/16 09:52 05/20/16 09:52 05/20/16 09:52 Microbiology 05/20/16 04:05 Gram Stain - Final Lung Bilateral - Bronchial Washings Laboratory Results 05/20/16 02:28 05/20/16 02:28 05/19/16 05/20/16 05/21/16 05:59 05:59 05:59 Intake Total 2448 2068.7 Output Total 5135 1625 Balance -2687 443.7 PT 20.0 SEC (12.0-15.0) H 05/17/16 04:30 INR 1.70 (0.83-1.16) H 05/17/16 04:30 Physical Exam - Physical Exam General Appearance: no apparent distress EENT: ET tube Neck: normal inspection Respiratory: crackles, other (coarse breath sounds) Abdomen: normal bowel sounds, other (abd pad in place, drain, feeding tube) Extremities: swelling (decreased, R more edematous than L) ICD10 Worksheet Patient Problems: Problems Problem Status Onset Hypoxia Acute Pneumonia Acute
[2016-05-20] MEDS ORDERED: LIDOCAINE 2% JELLY 20 ML (UROJECT) TP ONE (10:30)
--- NOTE | 2016-05-20 11:03 | SOAPPROG ---
SOAP Progress Note Assessment/Plan: Assessment/Plan 81yo M c duodenal perf s/p ex lap, repair and washout x2. Persistent leak - decompensted overnight, intubated early this AM. - WBC high at 15k, CHARLIE still draining purulent material. Will plan to place NGT at bedside and perform CT c PO contrast once HD completed for the day - May need drain manipulation, addl drain placement. ABX coverage changed to hopefully get better handle on pna but want to make sure that source control on abdomen is optimal given his decompensation 05/06/16 13:11 05/07/16 12:00 05/07/16 12:01 05/08/16 12:18 05/09/16 09:10 05/10/16 09:26 05/13/16 13:09 05/14/16 11:20 05/15/16 11:09 05/16/16 10:43 05/17/16 11:28 05/18/16 15:47 05/20/16 11:01 Subjective: Intubated and sedated Objective: Vital Signs Temp Pulse Resp BP Pulse Ox 37.2 C 105 H 28 H 125/74 H 100 05/20/16 08:00 05/20/16 10:00 05/20/16 10:00 05/20/16 10:00 05/20/16 10:00 Microbiology 05/20/16 04:05 Gram Stain - Final Lung Bilateral - Bronchial Washings Laboratory Results 05/20/16 02:28 05/20/16 02:28 05/19/16 05/20/16 05/21/16 05:59 05:59 05:59 Intake Total 7608 2068.7 Output Total 9321 1625 Balance -2687 443.7 PT 20.0 SEC (12.0-15.0) H 05/17/16 04:30 INR 1.70 (0.83-1.16) H 05/17/16 04:30 ICD10 Worksheet Patient Problems: Problems Problem Status Onset Hypoxia Acute Pneumonia Acute
[2016-05-20 11:04] LABS: BASE EXCESS 2.5 mEq/L (-2.5-2.5); BICARBONATE 26 mEq/L (22-26); MEASURED OXYGEN SATURATION 99 % (92-95); O2 CONCENTRATIION 80 % (0-100); P/F RATIO 213 RATIO; PCO2 40 mmHg (34-38); PO2 170 mmHg (65-75); PRESSURE SUPPORT 12; SIMV YES; TCO2 28 mEq/L (23-27)
[2016-05-20 11:08] LABS: EOSMR EOSINOPHILS FEW EOS (NO EOS SEEN); EOSMR EPITHELIAL CELLS NO EPITH CELLS SEEN; EOSMR PMNS MODERATE PMN CELLS
[2016-05-20 11:09] LABS: EOSMR RBCS MANY RBCS
[2016-05-20] MEDS: FUROSEMIDE 100 MG/10 ML VIAL IV SCH ×2 (11:12→16:54)
[2016-05-20] MEDS: MICAFUNGIN NA 100 MG in NS 100 ML IV SCH (11:13)
[2016-05-20] MEDS: PIPERACILLIN/TAZO 2.25 GM/DEX 50 ML IV SCH ×3 (11:14→21:57)
--- NOTE | 2016-05-20 11:38 | CPEKG ---
Heart Rate: 98 RR Interval: 612 P-R Interval: 148 QRSD Interval: 92 QT Interval: 356 QTC Interval: 455 P [place]: -45 QRS [place]: 87 T Wave [place]: 64 EKG Severity - BORDERLINE ECG - EKG Impression: SINUS OR ECTOPIC ATRIAL TACHYCARDIA EKG Impression: ATRIAL PREMATURE COMPLEX EKG Impression: CONSIDER RIGHT VENTRICULAR HYPERTROPHY EKG Impression: COMPARED WITH 05/19/2016, SINUS RHYTHM IS NOW PRESENT Electronically Signed By: Debo Marte 20-May-2016 15:11:08
[2016-05-20] MEDS ORDERED: ALBUMIN 25% 100 ML IV PRN (12:04)
[2016-05-20] MEDS: PROPOFOL/EMULSION 100 ML IV SCH (13:07)
--- NOTE | 2016-05-20 13:22 | PCMIDPN ---
Assessment/Plan: 81 Year old male with complex hospital course now with: # Sepsis secondary to polymicrobial peritonitis from duodenal perforation. Sepsis is associated with acute renal failure requiring hemodialysis, leukocytosis, encephalopathy, new resp failure overnight. Past culture show enterococcus and Pseudomonas, new cx with enterococcus and lactobacillus. Remains critically ill today - concern for poor prognosis. Further, WBC remains elevated, recent respiratory failure and high O2 demands, febrile --discontinue aztreonam, metronidazole (daptomycin discontinued yesterday for concern of lung hypersensitivity plus today eosinophiles on BAL) and resume Zosyn for better enterococcal, Pseudomonas, anaerobic coverage. Discussed with Nephrology. 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 Objective: Vital Signs Temp Pulse Resp BP Pulse Ox 37 C 120 H 28 H 128/77 H 100 05/20/16 12:00 05/20/16 12:02 05/20/16 12:02 05/20/16 12:00 05/20/16 12:02 Microbiology 05/20/16 04:05 Mycobacterial Smear (TROY) - Final Bronchial [place] - Bilateral Lobes 05/20/16 04:05 Gram Stain - Final Lung Bilateral - Bronchial Washings Laboratory Results 05/20/16 02:28 05/20/16 02:28 05/19/16 05/20/16 05/21/16 05:59 05:59 05:59 Intake Total 2448 2068.7 Output Total 5135 1625 Balance -2687 443.7 T-max 38.6 degrees R IJ HD cath c/d/i LUE PICC c/d/i [place], mild scotal edema rectal tube Sedated ETT R drain with brown liquid material 50cc/24hrs abdomen soft NT, decrease bs CV tachy, HR up to 160s when at bedside Chest course bs on vent skin no rash, pallor Extremities anasarca but generally improved - Time Spent With Patient Time Spent with Patient: greater than 35 minutes (case discussed and imaging reviewed with Dr. Keen) Time Spent with Patient: Greater than 35 minutes spent on this patients care, greater than 50% of time spent counseling, educating, and coordinating care regarding the above mentioned plan. ICD10 Worksheet Patient Problems: Problems Problem Status Onset Hypoxia Acute Pneumonia Acute
[2016-05-20] MEDS: DILTIAZEM 125 MG in D5W 125 ML IV SCH (15:55)
--- NOTE | 2016-05-20 16:41 | PDINTPN ---
[facility] Progress Note Assessment/Plan: Assessment: Acute respiratory failure with diffuse bilateral pulmonary infiltrates. Some of these changes are likely related to volume overload and renal failure. However, not improving with fluid removal. Doubt pneumonia but cannot rule this out. ARDS certainly possible as is an interstitial process perhaps related to daptomycin. There are some eosinophilic is from the bronchial wash at the time of intubation. This may be related to daptomycin? The latter has been stopped. Peritonitis, abdominal abscesses/infection. Per surgery and Infectious Disease. Acute renal failure. Putting out more urine, non oliguric now. BUN and creatinine coming down. On every other day hemodialysis. Status post hemodialysis today. Superficial DVT related to the right arm. On prophylactic heparin. Nutrition: TPN. Prognosis: Guarded at this point secondary to multiple medical problems and multi organ failure. Progression to respiratory failure obviously not a good sign. Plan: Continue vent support for now. Continue supportive care. Continue with hemodialysis. Follow arterial blood gas in chest x-ray. Antibiotics have been adjusted with daptomycin being discontinued. Steroids will be initiated. All the above was discussed with the patient's , ID, nursing, and the ICU multi disciplinary team. 45 minutes of critical care time was spent directly with the patient. Subjective: Intubated early this morning for progressive respiratory failure. On the ventilator, sedated, appears comfortable Objective: Vital Signs Temp Pulse Resp BP Pulse Ox 37.5 C 101 H 28 H 118/62 100 05/20/16 15:57 05/20/16 16:09 05/20/16 16:09 05/20/16 16:09 05/20/16 16:09 Microbiology 05/20/16 04:05 Mycobacterial Smear (TROY) - Final Bronchial [place] - Bilateral Lobes 05/20/16 04:05 Gram Stain - Final Lung Bilateral - Bronchial Washings Laboratory Results 05/20/16 02:28 05/20/16 02:28 05/19/16 05/20/16 05/21/16 05:59 05:59 05:59 Intake Total 2448 2068.7 Output Total 5135 1625 Balance -2687 443.7 PT 20.0 SEC (12.0-15.0) H 05/17/16 04:30 INR 1.70 (0.83-1.16) H 05/17/16 04:30 Laboratory Tests 05/20/16 10:55 pCO2 40 H pO2 170 H ABG pH 7.44 O2 Concentration % 80 SIMV YES Tidal Volume 550 PEEP 8 Pressure Support 12 CXR: No change in infiltrates related to the left upper lobe, left lower lobe, right lower lobe and right upper lobe. Lines and tubes appear to be in good position. Physical Exam - Physical Exam General Appearance: other (Sedated, on the ventilator) EENT: PERRL/EOMI, ET tube, other (NG) Neck: normal inspection Respiratory: decreased breath sounds, rales (Bilateral rales are present), No lungs clear, No normal breath sounds, No rhonchi, No wheezing Cardiac/Chest: tachycardia (Sinus, distant heart tones) Abdomen: other (Drain in place), No normal bowel sounds (Quiet), No soft Male Genitalia: other (Wesley catheter in place. Improved urine output, approximately 1400 cc yesterday) Skin: normal color, warm/dry Extremities: pedal edema (Trace +) Neuro/Psych: no motor/sensory deficits (Prior to intubation, moves all extremities), No cognition abnormalities (Can't assess) ICD10 Worksheet Patient Problems: Problems Problem Status Onset Hypoxia Acute Pneumonia Acute
--- NOTE | 2016-05-20 18:44 | HOSPPROG ---
Hospitalist Progress Note Assessment/Plan: INTERVAL SUMMARY & DAILY PROGRESS NOTE DATE OF ADMISSION: 05/04/2016 INTERVAL DIAGNOSES 1. Acute peritonitis with intra-abdominal abscess 2. Acute tubular necrosis 3. Acute hypoxic respiratory failure 4. Systemic inflammatory response syndrome 5. Basilic vein superficial thrombosis 6. Acute encephalopathy 7. Thrombocytopenia 8. Drug rash 9. Atrial Fibrillation w/ RVR CONSULTATIONS Renal, pulmonary Critical Care, General surgery PROCEDURES / IMAGING Dialysis catheter placement, intubation and bronchoscopy CHIEF COMPLAINT Shortness of breath SUBJECTIVE Patient is currently intubated and sedated HOSPITAL COURSE BY PROBLEM The patient presented with renal failure and worsening creatinine level in the setting of persistent duodenal leak after he received small-bowel follow- through study as an outpatient. Patient's acute kidney injury involved into acute tubular necrosis and he was initiated on hemodialysis. He has become hypervolemic is also requiring hemodialysis for volume management. His respiratory status has been worsening over this interval and he was emergently intubated for worsening tachypnea. It is unclear whether his respiratory status has also been worsening secondary to a daptomycin reaction this medication has consequently been discontinued with adjustment to Zosyn and introduction of steroids. He recently went into Afib RVR, requiring dilt gtt. Our prognosis for the patient has been guarded and we have shared this with the patient and his family. Assessment: 81-year-old p/w ATN and recurrent intra-abdominal abscess c/b acute hypoxic respiratory failure and ATN Plan: # Peritonitis/intra-abdominal abscess. s/p multiple I&Ds and perc drain placed by IR, persistent duodenal leak on small bowel follow-through - duodenal perf s/p repair with omental patch - d/w Dr. Tejada, she has recommended abx with zosyn/micafungin # MILLA. Now non-oliguric, likely ATN, requiring ongoing HD qod # Acute hypoxic respiratory failure. Evidenced by SpO2 50% and requiring up to 25LPM 100% FiO2 high-flow w/ ongoing tachypnea, suspect 2/2 volume overload + possible dapto rxn - intubated 05/20 - stopped dapto - removing volume w/ lasix and HD # SIRS. Tachycardic/Tachypneic and ongoing leukocytosis, unclear if there is additional source of infxn - repeat BCx NGTD - consider worsening intra-abdominal source, and if symptomatic from an abd standpoint, would rec re-ex-lap # Basilic vein superficial thrombosis. PICC removed, if resp status worsening consider systemic anticoagulation - hep ppx # Acute encephalopathy. Evidenced by global brain dysfunction characterized as poor responsiveness, inability to follow commands, this is an acute change from his baseline, most likely secondary to the toxic effects of Ativan and potential infection - currently sedated # Thrombocytopenia. HIT panel neg, cont to monitor # Drug rash. / levofloxacin # Atrial fibrillation w/ RVR. Initially appeared to be SVT, rate controlled on dilt gtt, now appears to be AFib on tele (personally interpreted) Diet. TPN, volume reduced Prophylaxis. High risk patient, heparin subcu Code. Full code Disposition. Anticipated discharge uncertain, remains critically ill Complexity patient, high risk for worsening morbidity and/or mortality, secondary to the issues outlined above. Subjective: Patient currently intubated and sedated, placed on Dilt drip overnight Objective: Vital Signs Temp Pulse Resp BP Pulse Ox 37.5 C 103 H 28 H 125/80 H 97 05/20/16 15:57 05/20/16 18:00 05/20/16 18:00 05/20/16 18:00 05/20/16 18:00 Microbiology 05/20/16 04:05 Mycobacterial Smear (TROY) - Final Bronchial [place] - Bilateral Lobes 05/20/16 04:05 Gram Stain - Final Lung Bilateral - Bronchial Wash[place] Laboratory Results 05/20/16 02:28 05/20/16 02:28 05/19/16 05/20/16 05/21/16 05:59 05:59 05:59 Intake Total 2448 2068.7 Output Total 5135 1625 Balance -2687 443.7 PT 20.0 SEC (12.0-15.0) H 05/17/16 04:30 INR 1.70 (0.83-1.16) H 05/17/16 04:30 - Physical Exam Constitutional: no apparent distress, not in pain, chronically ill appearing, No uncomfortable Eyes: other (Fixed, reactive pupils, mildly constricted), No icteric sclera Cardiovascular: systolic murmur (2/6 at the sternum), irregularly irregular, tachycardia, No edema Respiratory: reduced air movement (Left anterior), rhonchi (Bilaterally inspiration), No expiratory wheeze, No bronchial breath sounds Gastrointestinal: other (Abdominal drain in place, J-tube in place), No normoactive bowel sounds (Hypoactive bowel sounds), No tenderness, No guarding, No distension ICD10 Worksheet Patient Problems: Problems Problem Status Onset Hypoxia Acute Pneumonia Acute
[2016-05-20] MEDS: methylPREDNISolone SOD SUCC 125 MG/2 ML VIAL IVP SCH (20:39)
[2016-05-20] MEDS: TPN W/ FAMOTIDINE 1 EA BAG IV SCH (20:39)
[2016-05-21] MEDS: INSULIN REGULAR, HUMAN 100 UNIT/1 ML VIAL STANDARD SC SCH ×5 (00:02→23:44)
[2016-05-21] MEDS: DILTIAZEM 125 MG in D5W 125 ML IV SCH ×2 (01:11→14:33)
[2016-05-21 04:53] LABS: ADD DIFF? YES; ADD MORPH? NO; ADD SCAN? NO; ATYPICAL LYMPHOCYTE FLAG 30 (0-99); FRAGMENT RBC FLAG 10 (0-99); HEMATOCRIT 23.4 % (40.0-51.0); HEMOGLOBIN 7.7 g/dL (13.7-17.5); LEFT SHIFT FLG 50 (0-99); LIPEMIA HEMOLYSIS FLAG 80 (0-99); MEAN CELL HEMOGLOBIN 30.8 pg (27.9-34.1); MEAN CELL HEMOGLOBIN CONCENTR. 32.9 g/dL (32.4-36.7); MEAN CELL VOLUME 93.6 fL (81.5-99.8); MEAN PLATELET VOLUME 10.2 fL (8.7-11.7); PLATELET CLUMPS FLAG 20 (0-99); PLATELET COUNT 275 10^3/uL (150-400); RED CELL DISTRIBUTION WIDTH 18.4 % (11.5-15.2)
[2016-05-21 04:57] LABS: BASE EXCESS -1.6 mEq/L (-2.5-2.5); BICARBONATE 22 mEq/L (22-26); MEASURED OXYGEN SATURATION 97 % (92-95); PCO2 35 mmHg (34-38); PO2 85 mmHg (65-75); TCO2 23 mEq/L (23-27)
[2016-05-21 04:58] LABS: END TIDAL CO2 25; O2 CONCENTRATIION 40 % (0-100); P/F RATIO 213 RATIO; SIMV YES
[2016-05-21 04:59] LABS: PATIENT RATE 28; PRESSURE SUPPORT 12
[2016-05-21] MEDS: PROPOFOL/EMULSION 100 ML IV SCH ×2 (05:07→18:29)
[2016-05-21] MEDS: HEPARIN 5,000 UNIT/0.5 ML SYR SC SCH ×3 (05:07→21:09)
[2016-05-21] MEDS: PIPERACILLIN/TAZO 2.25 GM/DEX 50 ML IV SCH ×3 (05:07→22:29)
[2016-05-21 05:16] LABS: ALBUMIN 2.6 g/dL (3.5-5.0); ANION GAP 11 mEq/L (8-16); CALCIUM 9.1 mg/dL (8.5-10.4); CARBON DIOXIDE 22 mEq/l (22-31); CHLORIDE 100 mEq/L (97-110); CREATININE 3.4 mg/dL (0.7-1.3); GLOMERULAR FILTRATION RATE 18; GLUCOSE 202 mg/dL (70-100); POTASSIUM 4.4 mEq/L (3.5-5.2); SODIUM 133 mEq/L (134-144)
[2016-05-21 06:00] LABS: HYPOCHROMIA 1+; PLATELET ESTIMATE ADEQUATE (ADEQ); POLYCHROMASIA 1+
[2016-05-21] MEDS: FUROSEMIDE 100 MG/10 ML VIAL IV SCH ×2 (07:44→18:29)
[2016-05-21] MEDS: methylPREDNISolone SOD SUCC 125 MG/2 ML VIAL IVP SCH ×2 (07:44→21:09)
[2016-05-21] MEDS: CHLORHEXIDINE GLUCONATE 15 ML UDL PO SCH ×2 (07:45→21:09)
[2016-05-21] MEDS: MICAFUNGIN NA 100 MG in NS 100 ML IV SCH (07:50)
[2016-05-21] MEDS ORDERED: ALBUMIN 25% 50 ML IV PRN (08:00)
--- NOTE | 2016-05-21 10:13 | SOAPPROG ---
SOAP Progress Note Assessment/Plan: Assessment/Plan: MILLA: oliguric and likely ATN. Hypervolemia has been problematic this week but seems to be improving, HD done Tuesday, Tuesday, and . - Will do HD today. - Plan on HD again tomorrow. - Will continue Lasix. - Will continue to monitor her renal function closely for recovery. - Avoid MOM, morphine, NSAIDs, contrast, aminoglycosides, fleets, and other nephrotoxins. Hypervolemia: pt also getting TPN, already maximally concentrated. Will continue Lasix and HD. Anemia: Hgb stable at 7.7, will monitor. Subjective: No acute events overnight. Pt doing well on vent, HR back down, he is more interactive. HD with no issues yesterday. Objective: Vital Signs Temp Pulse Resp BP Pulse Ox 36.7 C 76 23 H 129/75 H 97 05/21/16 07:39 05/21/16 08:58 05/21/16 08:58 05/21/16 08:58 05/21/16 08:58 Microbiology 05/20/16 04:05 Gram Stain - Final Lung Bilateral - Bronchial [place] 05/20/16 04:05 Mycobacterial Smear (TROY) - Final Bronchial [place] - Bilateral Lobes Laboratory Results 05/21/16 04:45 05/21/16 04:45 05/20/16 05/21/16 05/22/16 05:59 05:59 05:59 Intake Total 2068.7 2189 Output Total 1625 860 Balance 443.7 1329 PT 20.0 SEC (12.0-15.0) H 05/17/16 04:30 INR 1.70 (0.83-1.16) H 05/17/16 04:30 General: awake, no acute distress Eyes; EOMI, pERRL OP: intubated CV: RRR Resp: intubated and on vent, coarse breath sounds Abd; SOft, NT Ext: +1 edema BLE Neuro: CN II-XII grossly intact ICD10 Worksheet Patient Problems: Problems Problem Status Onset Hypoxia Acute Pneumonia Acute
--- NOTE | 2016-05-21 13:17 | PCMIDPN ---
Assessment/Plan: Assessment: Continued abdominal fluid collection status post duodenal leak. Patient was removed from daptomycin 2 days ago in steroids were started yesterday. He has made significant improvement and is much more clinically stable today. Remains on the ventilator. Antibiotic coverage now with Zosyn and micafungin. Will continue to watch for recovering renal function. Plan: 1. Continue both Zosyn and micafungin. 2. Follow laboratory values and respiratory status. 05/21/16 16:07 05/21/16 16:08 Subjective: Patient remains ventilated and sedated. His need for ventilatory support has substantially decreased over the last 24 hours. Heart rate and blood pressures are also stable. Patient is able to open his eyes to verbal stimulation. Objective: Zosyn # 2 micafungin #13 Vital Signs Temp Pulse Resp BP Pulse Ox 36.1 C 64 28 H 124/81 H 99 05/21/16 12:00 05/21/16 12:00 05/21/16 12:00 05/21/16 12:00 05/21/16 12:00 Microbiology 05/20/16 04:05 Gram Stain - Final Lung Bilateral - Bronchial [place] 05/20/16 04:05 Mycobacterial Smear (TROY) - Final Bronchial [place] - Bilateral Lobes Laboratory Results 05/21/16 04:45 05/21/16 04:45 05/20/16 05/21/16 05/22/16 05:59 05:59 05:59 Intake Total 2068.7 2189 Output Total 1625 860 100 Balance 443.7 1329 -100 - Physical Exam General Appearance: WD/WN, no apparent distress, other (Ventilated and sedated) , No toxic (Much more stable appearing today) Respiratory: lungs clear, normal breath sounds, No respiratory distress Cardiac/Chest: regular rate, rhythm, No tachycardia Extremities: non-tender, normal inspection Skin: normal color, warm/dry, No rash ICD10 Worksheet Patient Problems: Problems Problem Status Onset Hypoxia Acute Pneumonia Acute
--- NOTE | 2016-05-21 14:26 | PDINTPN ---
Business Account Specialist Progress Note Assessment/Plan: Assessment: Acute respiratory failure with diffuse bilateral pulmonary infiltrates. Improved today. Some of these changes are likely related to volume overload and renal failure. However, not improving with fluid removal. Doubt pneumonia but cannot rule this out. ARDS certainly possible as is an interstitial process perhaps related to daptomycin. There are some eosinophilic is from the bronchial wash at the time of intubation. This may be related to daptomycin? The latter has been stopped and steroids started. Peritonitis, abdominal abscesses/infection. Per surgery and Infectious Disease. Acute renal failure. Putting out more urine, non oliguric now. BUN and creatinine coming down. On every other day hemodialysis. Status post hemodialysis today. Superficial DVT related to the right arm. On prophylactic heparin. Nutrition: TPN. Prognosis: Remains guarded, respiratory status however slightly better today. Plan: Continue vent support for now. Continue supportive care. Continue with hemodialysis. Follow arterial blood gas in chest x-ray. Antibiotics have been adjusted with daptomycin being discontinued. Steroids will be continued. Will start CPAP trials. All the above was discussed with the patient's poa, ID, nursing, and the ICU multi disciplinary team. 45 minutes of critical care time was spent directly with the patient. Subjective: Sedated, on the ventilator, arouses weakly Objective: Vital Signs Temp Pulse Resp BP Pulse Ox 36.1 C 64 28 H 124/81 H 99 05/21/16 12:00 05/21/16 12:00 05/21/16 12:00 05/21/16 12:00 05/21/16 12:00 Microbiology 05/20/16 04:05 Gram Stain - Final Lung Bilateral - Bronchial [place] 05/20/16 04:05 Mycobacterial Smear (TROY) - Final Bronchial [place] - Bilateral Lobes Laboratory Results 05/21/16 04:45 05/21/16 04:45 05/20/16 05/21/16 05/22/16 05:59 05:59 05:59 Intake Total 2068.7 2189 Output Total 1625 860 100 Balance 443.7 1329 -100 PT 20.0 SEC (12.0-15.0) H 05/17/16 04:30 INR 1.70 (0.83-1.16) H 05/17/16 04:30 Laboratory Tests 05/21/16 05/21/16 04:45 04:50 pCO2 35 pO2 85 H ABG pH 7.41 ABG O2 Saturation 97 H O2 Concentration % 40 Actual Respiration Rate 28 Tidal Volume 550 PEEP 8 Pressure Support 12 Calcium 9.1 Phosphorus 2.4 L Albumin 2.6 L Bronch wash cultures: Negative so far: Mixed oral geovanny. AFB smear negative. Chest x-ray: Improved infiltrates although same pattern. Lines and tubes in good position. Physical Exam - Physical Exam General Appearance: no apparent distress, other (On ventilator, comfortable, looks to voice) EENT: PERRL/EOMI, ET tube, other (NG to suction) Neck: normal inspection Respiratory: decreased breath sounds, rales (Few rales at bases), No rhonchi, No wheezing Cardiac/Chest: regular rate, rhythm Abdomen: distended, No normal bowel sounds (Decreased), No non-tender, No soft Male Genitalia: other (Wesley catheter, adequate urine output) Skin: warm/dry, pallor Extremities: pedal edema Neuro/Psych: no motor/sensory deficits (Moves all extremities), No cognition abnormalities (Can't assess) ICD10 Worksheet Patient Problems: Problems Problem Status Onset Hypoxia Acute Pneumonia Acute
--- NOTE | 2016-05-21 15:35 | HOSPPROG ---
Hospitalist Progress Note Assessment/Plan: 81 yo M w recent complex hospital stay here w MILLA, possible enterocutaneous fistula Peritonitis/intra-abdominal abscess. s/p multiple I&Ds and perc drain placed by IR, persistent duodenal leak on small bowel follow-through duodenal perf s/p repair with omental patch zosyn.micafungin MILLA. Now non-oliguric, likely ATN, requiring ongoing HD qod Acute hypoxic respiratory failure. Evidenced by SpO2 50% and requiring up to 25LPM 100% FiO2 high-flow w/ ongoing tachypnea, suspect 2/2 volume overload + possible dapto rxn intubated 05/20 stopped dapto removing volume w/ lasix and HD on steroids SIRS. Tachycardic/Tachypneic and ongoing leukocytosis, unclear if there is additional source of infxn repeat BCx NGTD consider worsening intra-abdominal source, and if symptomatic from an abd standpoint, would rec re-ex-lap Basilic vein superficial thrombosis. PICC removed, if resp status worsening consider systemic anticoagulation hep prophylaxis Acute encephalopathy. Evidenced by global brain dysfunction characterized as poor responsiveness, inability to follow commands, this is an acute change from his baseline, most likely secondary to the toxic effects of Ativan and potential infection Thrombocytopenia. HIT panel neg, cont to monitor Drug rash. 2/2 levofloxacin Atrial fibrillation w/ RVR. Initially appeared to be SVT, rate controlled on dilt gtt, now appears to be AFib on tele (personally interpreted) Diet. TPN, volume reduced Prophylaxis. High risk patient, heparin subcu Code. Full code Disposition. Anticipated discharge uncertain, remains critically ill Complexity patient, high risk for worsening morbidity and/or mortality, secondary to the issues outlined above. Subjective: getting HD w volume removal. case d/w dr moreno Objective: Vital Signs Temp Pulse Resp BP Pulse Ox 36.1 C 70 24 H 105/58 L 96 05/21/16 12:00 05/21/16 14:00 05/21/16 14:00 05/21/16 14:00 05/21/16 14:00 Microbiology 05/20/16 04:05 Gram Stain - Final Lung Bilateral - Bronchial Washings 05/20/16 04:05 Mycobacterial Smear (TROY) - Final Bronchial [place] - Bilateral Lobes Laboratory Results 05/21/16 04:45 05/21/16 04:45 0305/21/16 05/22/16 05:59 05:59 05:59 Intake Total 2068.7 2189 Output Total 1625 860 100 Balance 443.7 1329 -100 PT 20.0 SEC (12.0-15.0) H 05/17/16 04:30 INR 1.70 (0.83-1.16) H 05/17/16 04:30 - Physical Exam Constitutional: no apparent distress, appears nourished Eyes: PERRL, anicteric sclera Ears, Nose, Mouth, Throat: moist mucous membranes, hearing normal Cardiovascular: regular rate and rhythym, no murmur, rub, or gallop Respiratory: no respiratory distress, no rales or rhonchi Gastrointestinal: normoactive bowel sounds, soft, non-tender abdomen Genitourinary: amado in urethra Skin: warm, normal color Musculoskeletal: full muscle strength, no muscle tenderness Neurologic: AAOx3 ICD10 Worksheet Patient Problems: Problems Problem Status Onset Hypoxia Acute Pneumonia Acute
--- NOTE | 2016-05-21 16:46 | SOAPPROG ---
SOAP Progress Note Assessment/Plan: Assessment/Plan 81yo M c duodenal perf s/p ex lap, repair and washout x2. Persistent leak - Lungs much better, on minimal support - Receiving HD today, will need tunneled cath, will plan for early next week - CT reviewed, no new contrast extrav, unclear whether still leaking or air/ barium all residual but fluid collection definitely smaller and patient otherwise stable from abd standpoint. Cont to keep NPO and hold TFs 05/06/16 13:11 05/07/16 12:00 05/07/16 12:01 05/08/16 12:18 05/09/16 09:10 05/10/16 09:26 05/13/16 13:09 05/14/16 11:20 05/15/16 11:09 05/16/16 10:43 05/17/16 11:28 05/18/16 15:47 05/20/16 11:01 05/21/16 16:44 Subjective: Intubated and sedated, when off sedation is purposeful Objective: Vital Signs Temp Pulse Resp BP Pulse Ox 36.1 C 70 24 H 105/58 L 96 05/21/16 12:00 05/21/16 14:00 05/21/16 14:00 05/21/16 14:00 05/21/16 14:00 Microbiology 05/20/16 04:05 Gram Stain - Final Lung Bilateral - Bronchial Washings 05/20/16 04:05 Mycobacterial Smear (TROY) - Final Bronchial [place] - Bilateral Lobes Laboratory Results 05/21/16 04:45 05/21/16 04:45 05/20/16 05/21/16 05/22/16 05:59 05:59 05:59 Intake Total 2068.7 2189 Output Total 1625 860 100 Balance 443.7 1329 -100 PT 20.0 SEC (12.0-15.0) H 05/17/16 04:30 INR 1.70 (0.83-1.16) H 05/17/16 04:30 ICD10 Worksheet Patient Problems: Problems Problem Status Onset Hypoxia Acute Pneumonia Acute
[2016-05-21] MEDS ORDERED: HEPARIN 50,000 UNIT/10 ML VIAL ONE (18:24)
[2016-05-21] MEDS: fentaNYL/NACL 100 ML IV SCH (18:29)
[2016-05-21] MEDS: TPN W/ FAMOTIDINE 1 EA BAG IV SCH (21:09)
[2016-05-22 05:18] LABS: ADD DIFF? YES; ADD MORPH? NO; ADD SCAN? NO; ATYPICAL LYMPHOCYTE FLAG 30 (0-99); FRAGMENT RBC FLAG 20 (0-99); HEMATOCRIT 21.2 % (40.0-51.0); LEFT SHIFT FLG 30 (0-99); LIPEMIA HEMOLYSIS FLAG 80 (0-99); MEAN CELL HEMOGLOBIN 29.9 pg (27.9-34.1); MEAN CELL VOLUME 90.6 fL (81.5-99.8); MEAN PLATELET VOLUME 10.2 fL (8.7-11.7); PLATELET CLUMPS FLAG 0 (0-99); PLATELET COUNT 244 10^3/uL (150-400); RED BLOOD CELL COUNT 2.34 10^6/uL (4.40-6.38); RED CELL DISTRIBUTION WIDTH 18.3 % (11.5-15.2)
[2016-05-22] MEDS: PIPERACILLIN/TAZO 2.25 GM/DEX 50 ML IV SCH ×3 (05:21→21:35)
[2016-05-22] MEDS: HEPARIN 5,000 UNIT/0.5 ML SYR SC SCH ×3 (05:23→21:35)
[2016-05-22 05:27] LABS: ALBUMIN 2.8 g/dL (3.5-5.0); ANION GAP 13 mEq/L (8-16); CALCIUM 8.9 mg/dL (8.5-10.4); CARBON DIOXIDE 25 mEq/l (22-31); CHLORIDE 98 mEq/L (97-110); CREATININE 2.7 mg/dL (0.7-1.3); GLOMERULAR FILTRATION RATE 23; GLUCOSE 209 mg/dL (70-100); POTASSIUM 3.4 mEq/L (3.5-5.2); SODIUM 136 mEq/L (134-144)
[2016-05-22] MEDS: INSULIN REGULAR, HUMAN 100 UNIT/1 ML VIAL STANDARD SC SCH (05:34)
[2016-05-22 06:35] LABS: BASE EXCESS -0.6 mEq/L (-2.5-2.5); BICARBONATE 23 mEq/L (22-26); MEASURED OXYGEN SATURATION 97 % (92-95); PCO2 36 mmHg (34-38); PO2 93 mmHg (65-75); TCO2 24 mEq/L (23-27)
[2016-05-22 06:39] LABS: CPAP YES
[2016-05-22 06:40] LABS: END TIDAL CO2 25; O2 CONCENTRATIION 40 % (0-100); P/F RATIO 233 RATIO; PATIENT RATE 13; PRESSURE SUPPORT 12
[2016-05-22 07:24] LABS: HYPOCHROMIA 1+; PLATELET ESTIMATE ADEQUATE (ADEQ); TARGET CELLS 1+
[2016-05-22] MEDS: PROPOFOL/EMULSION 100 ML IV SCH ×2 (07:58→18:19)
[2016-05-22] MEDS: FUROSEMIDE 100 MG/10 ML VIAL IV SCH ×2 (07:58→18:14)
[2016-05-22] MEDS: MICAFUNGIN NA 100 MG in NS 100 ML IV SCH (07:58)
[2016-05-22] MEDS: methylPREDNISolone SOD SUCC 125 MG/2 ML VIAL IVP SCH ×2 (07:58→21:02)
[2016-05-22] MEDS: CHLORHEXIDINE GLUCONATE 15 ML UDL PO SCH ×2 (07:59→20:14)
[2016-05-22] MEDS: fentaNYL/NACL 100 ML IV SCH (08:05)
[2016-05-22] MEDS ORDERED: ALBUMIN 25% 50 ML IV PRN (09:59)
[2016-05-22] MEDS ORDERED: NS 150 ML IV PRN (10:01)
--- NOTE | 2016-05-22 11:01 | SOAPPROG ---
SOAP Progress Note Assessment/Plan: Assessment: 1. MILLA - -Oliguric MILLA, likely ATN. - On HD today. Now appears euvolemic - Plan to hold HD tomorrow. - Will continue Lasix. - Will continue to monitor renal function closely for recovery. - Avoid MOM, morphine, NSAIDs, contrast, aminoglycosides, fleets, and other nephrotoxins. 2. Hypervolemia - -Hypervolemia has resolved after HD done Tuesday, Tuesday, , and Tuesday -Now FiO2 down to 40% and CXR showing clearing -Pt also getting TPN, already maximally concentrated. -Will continue Lasix and repeat HD as needed 3. Anemia - -Hgb low 7's, may need RBCs 4. Hypokalemia - -Using high-K+ dialysate today to correct Plan: 05/22/16 10:57 05/22/16 10:58 05/22/16 11:02 Subjective: Seen and examined on HD. Tolerating well with 2L goal UF, Qb300.Goal reduced from 2 to 1L on HD yesterday due to low BP. Adjusted today's goal to 1.5. Objective: Vital Signs Temp Pulse Resp BP Pulse Ox 36.4 C 53 L 27 H 116/61 98 05/22/16 06:00 05/22/16 10:00 05/22/16 10:00 05/22/16 10:00 05/22/16 10:00 Microbiology 05/20/16 04:05 Gram Stain - Final Lung Bilateral - Bronchial Washings Bronchial Washings Culture - Final Laboratory Results 05/22/16 05:03 05/22/16 05:03 05/21/16 05/22/16 05/23/16 05:59 05:59 06:59 Intake Total 2189 2306.8 Output Total 860 1025 Balance 1329 1281.8 PT 20.0 SEC (12.0-15.0) H 05/17/16 04:30 INR 1.70 (0.83-1.16) H 05/17/16 04:30 Physical Exam - Physical Exam EENT: ET tube Neck: other (R IJ temp HD line) Respiratory: lungs clear Cardiac/Chest: bradycardia, No systolic murmur Abdomen: soft, other (midline dressing in place c/d/i) Extremities: No swelling ICD10 Worksheet Patient Problems: Problems Problem Status Onset Hypoxia Acute Pneumonia Acute
--- NOTE | 2016-05-22 11:02 | PCMIDPN ---
Assessment/Plan: Assessment: Continued abdominal fluid collection status post duodenal leak. Patient remains on the ventilator but he is tolerating short periods of CPAP. He has maintained his clinical improvement that he saw yesterday. Seems clinically stable on Zosyn and micafungin. We will continue with this regimen and follow his clinical improvement. Hopefully he may be extubated tomorrow. Plan: 1. Continue both Zosyn and micafungin. 2. Follow laboratory values and respiratory status. Subjective: Patient remains intubated and sedated. Vital signs are stable. No new overnight events. Remains afebrile. Objective: Zosyn # 3 Micafungin # 14 Vital Signs Temp Pulse Resp BP Pulse Ox 36.4 C 53 L 27 H 116/61 98 05/22/16 06:00 05/22/16 10:00 05/22/16 10:00 05/22/16 10:00 05/22/16 10:00 Microbiology 05/20/16 04:05 Gram Stain - Final Lung Bilateral - Bronchial Washings Bronchial Washings Culture - Final Laboratory Results 05/22/16 05:03 05/22/16 05:03 05/21/16 05/22/16 05/23/16 05:59 05:59 06:59 Intake Total 2189 2306.8 Output Total 860 1025 Balance 1329 1281.8 - Physical Exam General Appearance: WD/WN, no apparent distress, non-toxic, other (Intubated and sedated) Respiratory: coarse breath sounds, No lungs clear, No respiratory distress, No stridor, No wheezing Cardiac/Chest: regular rate, rhythm, No tachycardia Skin: normal color, warm/dry, No rash ICD10 Worksheet Patient Problems: Problems Problem Status Onset Hypoxia Acute Pneumonia Acute
[2016-05-22] MEDS: INSULIN REGULAR, HUMAN 100 UNIT/1 ML VIAL HIGH SC SCH ×3 (14:05→23:41)
--- NOTE | 2016-05-22 14:09 | SOAPPROG ---
SOAP Progress Note Assessment/Plan: Assessment/Plan: 81yo M c duodenal perf s/p ex lap, repair and washout x2. Persistent leak Slow but steady improvement. Appreciate renal, ID, hospitalist, pants presser automatic input. HD on hold now. CXR improved. Abdomen stable. Continue NPO and holding of tube feeds. No new orders. 05/22/16 14:07 Objective: Vital Signs Temp Pulse Resp BP Pulse Ox 36.4 C 57 L 25 H 116/53 L 98 05/22/16 06:00 05/22/16 14:00 05/22/16 14:00 05/22/16 14:00 05/22/16 14:00 Microbiology 05/20/16 04:05 Gram Stain - Final Lung Bilateral - Bronchial Washings Bronchial Washings Culture - Final Laboratory Results 05/22/16 05:03 05/22/16 05:03 05/21/16 05/22/16 05/23/16 05:59 05:59 06:59 Intake Total 2189 2306.8 Output Total 860 1025 Balance 1329 1281.8 PT 20.0 SEC (12.0-15.0) H 05/17/16 04:30 INR 1.70 (0.83-1.16) H 05/17/16 04:30 S: minimally responsive O: on vent lungs clear anteriorly rrr abd soft inc cdi +cristina drainage ICD10 Worksheet Patient Problems: Problems Problem Status Onset Hypoxia Acute Pneumonia Acute
--- NOTE | 2016-05-22 14:23 | HOSPPROG ---
Hospitalist Progress Note Assessment/Plan: 81 yo M w recent complex hospital stay here w MILLA, possible enterocutaneous fistula Peritonitis/intra-abdominal abscess. s/p multiple I&Ds and perc drain placed by IR, persistent duodenal leak on small bowel follow-through duodenal perf s/p repair with omental patch zosyn.micafungin MILLA. 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 Evidenced by SpO2 50% and requiring up to 25LPM 100% FiO2 high-flow w/ ongoing tachypnea, suspect 2/2 volume overload + possible dapto rxn intubated 05/20 stopped dapto removing volume w/ lasix and HD on steroids SIRS. Tachycardic/Tachypneic and ongoing leukocytosis, unclear if there is additional source of infxn repeat BCx NGTD consider worsening intra-abdominal source, and if symptomatic from an abd standpoint, would rec re-ex-lap Basilic vein superficial thrombosis. PICC removed, if resp status worsening consider systemic anticoagulation hep prophylaxis Acute encephalopathy. Evidenced by global brain dysfunction characterized as poor responsiveness, inability to follow commands, this is an acute change from his baseline, most likely secondary to the toxic effects of Ativan and potential infection Thrombocytopenia. HIT panel neg, cont to monitor Drug rash. 2/2 levofloxacin Atrial fibrillation w/ RVR. Initially appeared to be SVT, rate controlled on dilt gtt, now appears to be AFib on tele (personally interpreted) Diet. TPN, volume reduced Prophylaxis. High risk patient, heparin subcu Code. Full code Disposition. Anticipated discharge uncertain, remains critically ill Complexity patient, high risk for worsening morbidity and/or mortality, secondary to the issues outlined above. Subjective: case d/w dr moreno, dr stover. tele: no events (interp by me) Objective: Vital Signs Temp Pulse Resp BP Pulse Ox 36.4 C 57 L 25 H 116/53 L 98 05/22/16 06:00 05/22/16 14:00 05/22/16 14:00 05/22/16 14:00 05/22/16 14:00 Microbiology 05/20/16 04:05 Gram Stain - Final Lung Bilateral - Bronchial Washings Bronchial Washings Culture - Final Laboratory Results 05/22/16 05:03 05/22/16 05:03 05/21/16 05/22/16 05/23/16 05:59 05:59 06:59 Intake Total 2189 2306.8 Output Total 860 1025 Balance 1329 1281.8 PT 20.0 SEC (12.0-15.0) H 05/17/16 04:30 INR 1.70 (0.83-1.16) H 05/17/16 04:30 - Physical Exam Constitutional: no apparent distress, appears nourished Eyes: PERRL Ears, Nose, Mouth, Throat: moist mucous membranes, hearing normal Cardiovascular: regular rate and rhythym, no murmur, rub, or gallop Respiratory: other (rhoncorous anterolat) Gastrointestinal: normoactive bowel sounds, soft, non-tender abdomen Genitourinary: no bladder fullness, amado in urethra Skin: warm, normal color Musculoskeletal: full muscle strength, no muscle tenderness Neurologic: No AAOx3, No sensation intact bilaterally Psychiatric: not anxious, No interacting appropriately ICD10 Worksheet Patient Problems: Problems Problem Status Onset Hypoxia Acute Pneumonia Acute
--- NOTE | 2016-05-22 17:42 | PDINTPN ---
Agricultural Scientist Progress Note Assessment/Plan: Assessment: Acute respiratory failure with diffuse bilateral pulmonary infiltrates. Continued improvement. Some of these changes are likely related to volume overload and renal failure. However, did not improve significantly with aggressive fluid removal, left upper lobe infiltrate significantly progressed. Doubt pneumonia but cannot rule this out. ARDS possible as is an interstitial eosinophilic process perhaps related to daptomycin (some eosinophils found in bronch wash). Daptomycin stopped, steroids initiated. Peritonitis, abdominal abscesses/infection. Stable. Per surgery and Infectious Disease. Acute renal failure. Non oliguric now, but urine output still relatively marginal. On every other day hemodialysis. Status post hemodialysis again today. Superficial DVT related to the right arm. On prophylactic heparin. Nutrition: TPN. Prognosis: Remains guarded, however he overall appears to be improved.. Plan: Continue vent support for now. Continue CPAP weans. If he does well we can consider extubation next 1-2 days. Continue supportive care. Continue with hemodialysis per Renal, now probably Tuesday and Tuesday. Follow arterial blood gas and chest x-ray. Continue steroids.. All the above was discussed with the patient's poa and family, RT, nursing, and the ICU multi disciplinary team. 50 minutes of critical care time was spent directly with the patient. Subjective: Sedated, on ventilator, appears comfortable. Status post hemodialysis earlier today. Objective: Vital Signs Temp Pulse Resp BP Pulse Ox 36.4 C 66 27 H 107/76 97 05/22/16 06:00 05/22/16 16:00 05/22/16 16:00 05/22/16 16:00 05/22/16 16:00 Microbiology 05/20/16 04:05 Gram Stain - Final Lung Bilateral - Bronchial Washings Bronchial Washings Culture - Final Laboratory Results 05/22/16 05:03 05/22/16 05:03 05/21/16 05/22/16 05/23/16 05:59 05:59 06:59 Intake Total 2189 2306.8 Output Total 860 1025 Balance 1329 1281.8 PT 20.0 SEC (12.0-15.0) H 05/17/16 04:30 INR 1.70 (0.83-1.16) H 05/17/16 04:30 Laboratory Tests 05/22/16 05/22/16 05:03 06:25 pCO2 36 pO2 93 H ABG pH 7.43 ABG O2 Saturation 97 H O2 Concentration % 40 PEEP 8 Pressure Support 12 CPAP YES Calcium 8.9 Phosphorus 2.7 Albumin 2.8 L CXR: Continued improvement in infiltrates. Left upper lobe infiltrate remains fairly dense, but somewhat better. Lines and tubes in good position ICD10 Worksheet Patient Problems: Problems Problem Status Onset Hypoxia Acute Pneumonia Acute
[2016-05-22] MEDS: TPN W/ FAMOTIDINE 1 EA BAG IV SCH (21:03)
[2016-05-23 05:03] LABS: ADD DIFF? YES; ADD MORPH? NO; ADD SCAN? NO; ATYPICAL LYMPHOCYTE FLAG 20 (0-99); FRAGMENT RBC FLAG 10 (0-99); HEMATOCRIT 28.1 % (40.0-51.0); HEMOGLOBIN 9.4 g/dL (13.7-17.5); LEFT SHIFT FLG 30 (0-99); LIPEMIA HEMOLYSIS FLAG 80 (0-99); MEAN CELL HEMOGLOBIN 30.9 pg (27.9-34.1); MEAN CELL HEMOGLOBIN CONCENTR. 33.5 g/dL (32.4-36.7); MEAN CELL VOLUME 92.4 fL (81.5-99.8); MEAN PLATELET VOLUME 10.2 fL (8.7-11.7); PLATELET CLUMPS FLAG 10 (0-99); PLATELET COUNT 293 10^3/uL (150-400); RED BLOOD CELL COUNT 3.04 10^6/uL (4.40-6.38); RED CELL DISTRIBUTION WIDTH 17.9 % (11.5-15.2)
[2016-05-23 05:18] LABS: ALBUMIN 2.7 g/dL (3.5-5.0); ANION GAP 14 mEq/L (8-16); CALCIUM 8.8 mg/dL (8.5-10.4); CARBON DIOXIDE 21 mEq/l (22-31); CHLORIDE 98 mEq/L (97-110); CREATININE 2.4 mg/dL (0.7-1.3); GLOMERULAR FILTRATION RATE 26; GLUCOSE 321 mg/dL (70-100); POTASSIUM 3.5 mEq/L (3.5-5.2); SODIUM 133 mEq/L (134-144)
[2016-05-23] MEDS: PIPERACILLIN/TAZO 2.25 GM/DEX 50 ML IV SCH ×3 (05:39→21:42)
[2016-05-23] MEDS: INSULIN REGULAR, HUMAN 100 UNIT/1 ML VIAL HIGH SC SCH ×4 (05:39→19:49)
[2016-05-23] MEDS: HEPARIN 5,000 UNIT/0.5 ML SYR SC SCH ×3 (05:39→21:42)
[2016-05-23 05:53] LABS: HYPOCHROMIA 1+; PLATELET ESTIMATE ADEQUATE (ADEQ)
[2016-05-23 06:10] LABS: BICARBONATE 23 mEq/L (22-26); MEASURED OXYGEN SATURATION 95 % (92-95); PCO2 37 mmHg (34-38); PO2 77 mmHg (65-75); TCO2 24 mEq/L (23-27)
[2016-05-23 06:11] LABS: CPAP YES; END TIDAL CO2 27; O2 CONCENTRATIION 40 % (0-100); P/F RATIO 193 RATIO; PATIENT RATE 24; PRESSURE SUPPORT 7
[2016-05-23] MEDS: PROPOFOL/EMULSION 100 ML IV SCH (06:30)
[2016-05-23] MEDS: CHLORHEXIDINE GLUCONATE 15 ML UDL PO SCH ×2 (08:16→19:20)
[2016-05-23] MEDS: FUROSEMIDE 100 MG/10 ML VIAL IV SCH ×2 (08:16→17:09)
[2016-05-23] MEDS: methylPREDNISolone SOD SUCC 125 MG/2 ML VIAL IVP SCH ×2 (08:16→20:12)
[2016-05-23] MEDS: MICAFUNGIN NA 100 MG in NS 100 ML IV SCH (09:18)
[2016-05-23] MEDS ORDERED: INSULIN GLARGINE 100 UNITS/ML SYRINGE SC PRN (10:32)
--- NOTE | 2016-05-23 14:11 | PCMIDPN ---
Assessment/Plan: Assessment: Continued abdominal fluid collection status post duodenal leak. Patient is now extubated and clinically quite interactive with medical staff in family. Seems clinically stable on Zosyn and micafungin. We will continue with this regimen and follow his clinical improvement. White blood cell count increase will be followed. Plan: 1. Continue both Zosyn and micafungin. 2. Follow laboratory values and respiratory status. Subjective: Patient is awake alert and interacting with family this morning after being extubated. Difficulty verbalizing and talking secondary to the endo tracheal tube recently having been in place. No fevers or chills. Objective: Zosyn #4 Micafungin # 15 Vital Signs Temp Pulse Resp BP Pulse Ox 36.5 C 79 8 L 158/75 H 95 05/23/16 14:00 05/23/16 14:00 05/23/16 14:00 05/23/16 14:00 05/23/16 14:00 Microbiology 05/20/16 04:05 Gram Stain - Final Lung Bilateral - Bronchial Washings Bronchial Washings Culture - Final Laboratory Results 05/23/16 04:51 05/23/16 04:51 05/22/16 05/23/16 05/24/16 04:59 05:59 05:59 Intake Total Output Total Balance - Physical Exam General Appearance: WD/WN, alert, no apparent distress, non-toxic Respiratory: lungs clear, normal breath sounds, No respiratory distress Cardiac/Chest: regular rate, rhythm, No tachycardia Skin: normal color, warm/dry, No rash Neuro/Psych: alert, oriented x 3 ICD10 Worksheet Patient Problems: Problems Problem Status Onset Hypoxia Acute Pneumonia Acute
--- NOTE | 2016-05-23 15:14 | PDINTPN ---
Center Director Progress Note Assessment/Plan: Assessment: Acute respiratory failure with diffuse bilateral pulmonary infiltrates. Intubated 05/20. Now resolved, extubated today and doing well. Some of these changes were likely related to volume overload and renal failure. However they did not improve significantly despite 4 L fluid removal in hemodialysis and increasing urinary diuresis. Doubt pneumonia but cannot rule this out completely, on broad-spectrum antibiotic. ARDS certainly possible as is an interstitial process perhaps related to daptomycin: On empiric steroids, but improvement may or may not be related. Dense right upper lobe changes persist. Peritonitis, abdominal abscesses/infection. Per surgery and Infectious Disease. Acute renal failure. Putting out more urine, non oliguric now. BUN and creatinine coming down. On every other day hemodialysis. Scheduled again for tomorrow. Superficial DVT related to the right arm. On prophylactic heparin. Nutrition: TPN. Metabolic: Glucoses quite high secondary to TPN and steroids. On insulin by sliding scale and in TPN. Being adjusted. DVT prophylaxis: Subcu heparin. Plan: Continue care, follow pulmonary status post extubation. Repeat chest x- ray in the a.m.. Follow lab, repeat blood gas if needed. For hemodialysis again tomorrow, continue fluid removal. Continue steroids but decrease. All the above was discussed with the patient's family, RT, nursing, and the ICU multi disciplinary team. Subjective: Did well on CPAP. Extubated. Conversant. On 3 L. Objective: Vital Signs Temp Pulse Resp BP Pulse Ox 36.5 C 79 8 L 158/75 H 95 05/23/16 14:00 05/23/16 14:00 05/23/16 14:00 05/23/16 14:00 05/23/16 14:00 Microbiology 05/20/16 04:05 Gram Stain - Final Lung Bilateral - Bronchial Washings Bronchial Washings Culture - Final Laboratory Results 05/23/16 04:51 05/23/16 04:51 05/22/16 05/23/16 05/24/16 04:59 05:59 05:59 Intake Total Output Total Balance PT 20.0 SEC (12.0-15.0) H 05/17/16 04:30 INR 1.70 (0.83-1.16) H 05/17/16 04:30 Laboratory Tests 05/23/16 05/23/16 04:51 06:00 pCO2 37 pO2 77 H ABG pH 7.41 O2 Concentration % 40 CPAP YES Calcium 8.8 Phosphorus 2.4 L Albumin 2.7 L CXR: Improving pulmonary infiltrates. Still fairly dense left upper lobe changes. Physical Exam - Physical Exam General Appearance: alert, no apparent distress, other (Comfortable appearing post extubation. A motion will.) EENT: PERRL/EOMI, other (NG tube in place to suction, nasal cannula) Neck: normal inspection (no JVD) Respiratory: lungs clear (Anteriorly), decreased breath sounds (At bases), rales (Few), No rhonchi, No wheezing Cardiac/Chest: regular rate, rhythm Abdomen: non-tender (Nontender), distended, No normal bowel sounds (Decreased, drain in place, rectal tube in place), No soft Male Genitalia: other (Wesley catheter, decreased urine output last 24 hours) Skin: warm/dry, pallor Extremities: pedal edema Neuro/Psych: no motor/sensory deficits (Moves all extremities), No cognition abnormalities ICD10 Worksheet Patient Problems: Problems Problem Status Onset Hypoxia Acute Pneumonia Acute
--- NOTE | 2016-05-23 15:15 | HOSPPROG ---
Hospitalist Progress Note Assessment/Plan: 81 yo M w recent complex hospital stay here w MILLA, possible enterocutaneous fistula Peritonitis/intra-abdominal abscess. s/p multiple I&Ds and perc drain placed by IR, persistent duodenal leak on small bowel follow-through duodenal perf s/p repair with omental patch zosyn.micafungin 05/23: increased drainage from CHARLIE (does not look like tube feeds), leukocytosis and increased blood sugars noted. if this trend continues, may need further imaging MILLA. 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 Evidenced by SpO2 50% and requiring up to 25LPM 100% FiO2 high-flow w/ ongoing tachypnea, suspect 2/2 volume overload + possible dapto rxn intubated 05/20 stopped dapto removing volume w/ lasix and HD on steroids SIRS. Tachycardic/Tachypneic and ongoing leukocytosis, unclear if there is additional source of infxn repeat BCx NGTD consider worsening intra-abdominal source, and if symptomatic from an abd standpoint, would rec re-ex-lap Basilic vein superficial thrombosis. PICC removed, if resp status worsening consider systemic anticoagulation hep prophylaxis Acute encephalopathy. Evidenced by global brain dysfunction characterized as poor responsiveness, inability to follow commands, this is an acute change from his baseline, most likely secondary to the toxic effects of Ativan and potential infection Thrombocytopenia. HIT panel neg, cont to monitor Drug rash. 2/2 levofloxacin Atrial fibrillation w/ RVR. Initially appeared to be SVT, rate controlled on dilt gtt, now appears to be AFib on tele (personally interpreted) Diet. TPN, volume reduced Prophylaxis. High risk patient, heparin subcu Code. Full code Disposition. Anticipated discharge uncertain, remains critically ill Complexity patient, high risk for worsening morbidity and/or mortality, secondary to the issues outlined above. Subjective: extubated today! AM cxr w improved airspace disease (interp by me) . case d/w dr moreno Objective: Vital Signs Temp Pulse Resp BP Pulse Ox 36.5 C 79 8 L 158/75 H 95 05/23/16 14:00 05/23/16 14:00 05/23/16 14:00 05/23/16 14:00 05/23/16 14:00 Microbiology 05/20/16 04:05 Gram Stain - Final Lung Bilateral - Bronchial Washings Bronchial Washings Culture - Final Laboratory Results 05/23/16 04:51 05/23/16 04:51 05/22/16 05/23/16 05/24/16 04:59 05:59 05:59 Intake Total Output Total Balance PT 20.0 SEC (12.0-15.0) H 05/17/16 04:30 INR 1.70 (0.83-1.16) H 05/17/16 04:30 - Physical Exam Constitutional: no apparent distress Eyes: PERRL, anicteric sclera Ears, Nose, Mouth, Throat: moist mucous membranes, hearing normal Cardiovascular: regular rate and rhythym, no murmur, rub, or gallop Respiratory: no respiratory distress, no rales or rhonchi Gastrointestinal: normoactive bowel sounds, soft, non-tender abdomen Genitourinary: amado in urethra Skin: warm, normal color Musculoskeletal: full muscle strength, no muscle tenderness Neurologic: AAOx3 Psychiatric: interacting appropriately Lymph, Heme, Immunologic: no cervical LAD ICD10 Worksheet Patient Problems: Problems Problem Status Onset Hypoxia Acute Pneumonia Acute
--- NOTE | 2016-05-23 16:07 | SOAPPROG ---
SOAP Progress Note Assessment/Plan: Assessment/Plan: 81yo M c duodenal perf s/p ex lap, repair and washout x2. Persistent leak Still with pulmonary and abdominal concerns, but looking quite good today during exam. Now extubated, smiling at family, interactive and appropriate although not verbalizing. Appreciate pulmonology input and concern re: ARDS. +leukocytosis, but on steroids now. Afebrile. CHARLIE drainage increased--still color of chocolate milk. NPO and TPN. Cr improving, HD tomorrow. Will d/w Dr. Dunbar. S:no complaints. smiling. denies pain. O: alert, nonverbal. ng in place decreased BS B, mild rales R rrr abd soft drain opaque light brown rectal tube in place 05/23/16 16:09 Objective: Vital Signs Temp Pulse Resp BP Pulse Ox 36.5 C 79 8 L 158/75 H 95 05/23/16 14:00 05/23/16 14:00 05/23/16 14:00 05/23/16 14:00 05/23/16 14:00 Microbiology 05/20/16 04:05 Gram Stain - Final Lung Bilateral - Bronchial Washings Bronchial Washings Culture - Final Laboratory Results 05/23/16 04:51 05/23/16 04:51 05/22/16 05/23/16 05/24/16 04:59 05:59 05:59 Intake Total Output Total Balance PT 20.0 SEC (12.0-15.0) H 05/17/16 04:30 INR 1.70 (0.83-1.16) H 05/17/16 04:30 ICD10 Worksheet Patient Problems: Problems Problem Status Onset Hypoxia Acute Pneumonia Acute
--- NOTE | 2016-05-23 17:20 | SOAPPROG ---
KELLIE Progress Note Assessment/Plan: Assessment: 1. MILLA - - Oliguric MILLA, likely ATN. - Last HD yesterday. Now appears euvolemic - Assess for HD needs tomorrow. - Will continue Lasix. - Will continue to monitor renal function closely for recovery. - Avoid MOM, morphine, NSAIDs, contrast, aminoglycosides, fleets, and other nephrotoxins. 2. Hypervolemia - -Hypervolemia has resolved after successive HD sessions -Now extubated -Pt also getting TPN, already maximally concentrated. -Will continue Lasix and repeat HD as needed -If Cr rising and UOP poor, may reduce Lasix to prevent iatrogenic MILLA 3. Anemia - -Hgb up to 9s now, s/p RBCs 05/22 4. Hypokalemia - -Improved today -Have been using high-K+ dialysate today to correct Plan: 05/23/16 17:18 05/23/16 17:22 Subjective: Extubated. Pt w/o complaints. Objective: Vital Signs Temp Pulse Resp BP Pulse Ox 36.5 C 84 20 161/74 H 93 05/23/16 14:00 05/23/16 16:00 05/23/16 16:00 05/23/16 16:00 05/23/16 16:00 Microbiology 05/20/16 04:05 Gram Stain - Final Lung Bilateral - Bronchial Washings Bronchial Washings Culture - Final Laboratory Results 05/23/16 04:51 05/23/16 04:51 05/22/16 05/23/16 05/24/16 04:59 05:59 05:59 Intake Total Output Total Balance PT 20.0 SEC (12.0-15.0) H 05/17/16 04:30 INR 1.70 (0.83-1.16) H 05/17/16 04:30 Physical Exam - Physical Exam General Appearance: WD/WN, alert, no apparent distress Respiratory: other (Coarse b/l) Abdomen: non-tender, soft Extremities: No swelling ICD10 Worksheet Patient Problems: Problems Problem Status Onset Hypoxia Acute Pneumonia Acute
[2016-05-23] MEDS: LORazepam 2 MG/ML INJ IV PRN (17:51)
[2016-05-23] MEDS: TPN W/ FAMOTIDINE 1 EA BAG IV SCH (20:43)
[2016-05-24] MEDS: INSULIN REGULAR, HUMAN 100 UNIT/1 ML VIAL HIGH SC SCH ×7 (00:06→23:41)
[2016-05-24 05:22] LABS: ADD DIFF? YES; ADD MORPH? NO; ADD SCAN? NO; ATYPICAL LYMPHOCYTE FLAG 20 (0-99); FRAGMENT RBC FLAG 10 (0-99); HEMATOCRIT 27.2 % (40.0-51.0); HEMOGLOBIN 9.1 g/dL (13.7-17.5); LEFT SHIFT FLG 70 (0-99); LIPEMIA HEMOLYSIS FLAG 80 (0-99); MEAN CELL HEMOGLOBIN 30.3 pg (27.9-34.1); MEAN CELL HEMOGLOBIN CONCENTR. 33.5 g/dL (32.4-36.7); MEAN CELL VOLUME 90.7 fL (81.5-99.8); MEAN PLATELET VOLUME 10.1 fL (8.7-11.7); PLATELET CLUMPS FLAG 0 (0-99); PLATELET COUNT 333 10^3/uL (150-400); RED CELL DISTRIBUTION WIDTH 17.2 % (11.5-15.2)
[2016-05-24 05:34] LABS: INR 1.18 (0.83-1.16)
[2016-05-24 05:36] LABS: APTT 31.8 SEC (23.0-38.0)
[2016-05-24] MEDS: PIPERACILLIN/TAZO 2.25 GM/DEX 50 ML IV SCH ×3 (05:36→20:45)
[2016-05-24] MEDS: HEPARIN 5,000 UNIT/0.5 ML SYR SC SCH ×2 (05:36→13:35)
[2016-05-24 05:40] LABS: ALBUMIN 2.8 g/dL (3.5-5.0); ANION GAP 15 mEq/L (8-16); CALCIUM 9.6 mg/dL (8.5-10.4); CARBON DIOXIDE 22 mEq/l (22-31); CHLORIDE 100 mEq/L (97-110); CREATININE 3.6 mg/dL (0.7-1.3); GLOMERULAR FILTRATION RATE 16; GLUCOSE 198 mg/dL (70-100); MAGNESIUM 2.4 mg/dL (1.6-2.3); POTASSIUM 3.4 mEq/L (3.5-5.2); SODIUM 137 mEq/L (134-144); TRIGLYCERIDE 226 mg/dL (40-150)
[2016-05-24 05:49] LABS: PLATELET ESTIMATE ADEQUATE (ADEQ)
[2016-05-24] MEDS ORDERED: INSULIN GLARGINE 100 UNITS/ML SYRINGE SC PRN (07:23)
[2016-05-24] MEDS: MICAFUNGIN NA 100 MG in NS 100 ML IV SCH (08:08)
[2016-05-24] MEDS: FUROSEMIDE 100 MG/10 ML VIAL IV SCH ×2 (08:13→17:16)
[2016-05-24] MEDS: methylPREDNISolone SOD SUCC 125 MG/2 ML VIAL IVP SCH (08:14)
[2016-05-24] MEDS: CHLORHEXIDINE GLUCONATE 15 ML UDL PO SCH ×2 (08:18→20:45)
--- NOTE | 2016-05-24 08:34 | SOAPPROG ---
SOAP Progress Note Assessment/Plan: Assessment: 1. MILLA Likely oliguric ischemic ATN. On qod Diaysis schedule. Volume status much improved. 2. TPN Reviewed with pharmacist. Will decrease protein intake in accordance to ideal body weight. 3. Corticosteroids Will discuss tapering these to off 4. MS Remains delerious 5. Pulmonary Stable on 3L NC. Doubt CXR infiltrates reflect volume removable by dialysis given low BP on HD yesterday and overall exam Subjective: Stable, but very weak, delerious Objective: Vital Signs Temp Pulse Resp BP Pulse Ox 36.4 C 87 15 153/79 H 97 05/24/16 06:00 05/24/16 08:00 05/24/16 08:00 05/24/16 08:00 05/24/16 08:00 Laboratory Results 05/24/16 05:06 05/24/16 05:06 05/23/16 05/24/16 05/25/16 05:59 05:59 05:59 Intake Total 1592.3 Output Total 1440 30 Balance 152.3 -30 PT 15.0 SEC (12.0-15.0) 05/24/16 05:06 INR 1.18 (0.83-1.16) H 05/24/16 05:06 Physical Exam - Physical Exam General Appearance: cachetic Neck: other (HD cath site ok) Respiratory: decreased breath sounds Cardiac/Chest: regular rate, rhythm Abdomen: soft Extremities: other (trace ps edema) Neuro/Psych: disoriented to person, disoriented to place, disoriented to time ICD10 Worksheet Patient Problems: Problems Problem Status Onset Hypoxia Acute Pneumonia Acute
[2016-05-24] MEDS ORDERED: methylPREDNISolone SOD SUCC 125 MG/2 ML VIAL IVP SCH (09:42)
--- NOTE | 2016-05-24 09:53 | PDINTPN ---
[place] [employer] Progress Note Assessment/Plan: Assessment/Plan: * Acute respiratory failure. Intubated 05/20. Stable post extubation * Diffuse Infiltrates-Some of these changes were likely related to volume overload and renal failure. However they did not improve significantly despite 4 L fluid removal in hemodialysis and increasing urinary diuresis. Doubt pneumonia but cannot rule this out completely, on broad-spectrum antibiotic. ARDS certainly possible as is an interstitial process perhaps related to daptomycin: On empiric steroids, -CXR unchanged, but clinically better -will decrease steroids * Peritonitis, abdominal abscesses/infection. Per surgery and Infectious Disease. * Acute renal failure. Putting out more urine, non oliguric now. BUN and creatinine coming down. On every other day hemodialysis. * Superficial DVT related to the right arm. On prophylactic heparin. * Nutrition: TPN. * Metabolic: Glucoses quite high secondary to TPN and steroids. On insulin by sliding scale and in TPN. Being adjusted. * DVT prophylaxis: Subcu heparin. Overall, slowly improving. Subjective: Up in chair. Feels weak. Breathing unlabored Objective: Vital Signs Temp Pulse Resp BP Pulse Ox 36.4 C 87 15 153/79 H 97 05/24/16 06:00 05/24/16 08:00 05/24/16 08:00 05/24/16 08:00 05/24/16 08:00 Laboratory Results 05/24/16 05:06 05/24/16 05:06 05/23/16 05/24/16 05/25/16 05:59 05:59 05:59 Intake Total 1592.3 Output Total 1440 30 Balance 152.3 -30 PT 15.0 SEC (12.0-15.0) 05/24/16 05:06 INR 1.18 (0.83-1.16) H 05/24/16 05:06 Laboratory Results 05/24/16 05:06 05/24/16 05:06 05/24/16 05:06 Calcium 9.6 mg/dL mg/dL (8.5 - 10.4) Phosphorus 2.4 mg/dL L mg/dL (2.5 - 4.5) Magnesium 2.4 mg/dL H mg/dL (1.6 - 2.3) Albumin 2.8 g/dL L g/dL (3.5 - 5.0) Triglycerides 226 mg/dL H mg/dL (40 - 150) CXR-reviewed by myself. No change overall. Physical Exam - Physical Exam General Appearance: alert, no apparent distress EENT: PERRL/EOMI, normal ENT inspection Neck: non-tender, full range of motion, supple Respiratory: crackles, No lungs clear, No respiratory distress, No stridor, No wheezing Cardiac/Chest: normal peripheral pulses, regular rate, rhythm, systolic murmur Peripheral Pulses: 2+: carotid (R), carotid (L), femoral (R), femoral (L), dorsalis-pedis (R), dorsalis-pedis (L) Abdomen: normal bowel sounds, non-tender, soft Male Genitalia: deferred Rectal: deferred Skin: normal color, warm/dry Extremities: normal range of motion, non-tender, normal inspection, normal capillary refill Neuro/Psych: alert ICD10 Worksheet Patient Problems: Problems Problem Status Onset Hypoxia Acute Pneumonia Acute
--- NOTE | 2016-05-24 11:46 | SOAPPROG ---
SOAP Progress Note Assessment/Plan: Assessment/Plan 81yo M c duodenal perf s/p ex lap, repair and washout x2. Persistent leak - Extubated, now saturating well on NC. CXR today looks decent - CHARLIE output significantly higher then previous, character has also changed. ? whether or not charted volumes are correct. Abdominal exam is otherwise reassuring as he denies pain and he is soft. - WBC to 20k, steroids? will recheck tomorrow. - Will need repeat scan of abd given CHARLIE output and character but could represent controlled fistula which we would not frame changer at this time 05/06/16 13:11 05/07/16 12:00 05/07/16 12:01 05/08/16 12:18 05/09/16 09:10 05/10/16 09:26 05/13/16 13:09 05/14/16 11:20 05/15/16 11:09 05/16/16 10:43 05/17/16 11:28 05/18/16 15:47 05/20/16 11:01 05/21/16 16:44 05/24/16 11:44 Objective: Vital Signs Temp Pulse Resp BP Pulse Ox 36.4 C 89 15 167/98 H 97 05/24/16 06:00 05/24/16 10:00 05/24/16 10:00 05/24/16 10:00 05/24/16 10:00 Microbiology 05/20/16 04:05 Mycobacterial Smear (TROY) - Final Bronchial [place] - Bilateral Lobes Laboratory Results 05/24/16 05:06 05/24/16 05:06 05/23/16 05/24/16 05/25/16 05:59 05:59 05:59 Intake Total 1592.3 Output Total 1440 75 Balance 152.3 -75 PT 15.0 SEC (12.0-15.0) 05/24/16 05:06 INR 1.18 (0.83-1.16) H 05/24/16 05:06 ICD10 Worksheet Patient Problems: Problems Problem Status Onset Hypoxia Acute Pneumonia Acute
[2016-05-24 15:46] LABS: ADD DIFF? YES; ADD MORPH? NO; ADD SCAN? NO; ATYPICAL LYMPHOCYTE FLAG 30 (0-99); FRAGMENT RBC FLAG 10 (0-99); HEMATOCRIT 27.8 % (40.0-51.0); HEMOGLOBIN 9.6 g/dL (13.7-17.5); LEFT SHIFT FLG 90 (0-99); LIPEMIA HEMOLYSIS FLAG 90 (0-99); MEAN CELL HEMOGLOBIN 30.2 pg (27.9-34.1); MEAN CELL HEMOGLOBIN CONCENTR. 34.5 g/dL (32.4-36.7); MEAN CELL VOLUME 87.4 fL (81.5-99.8); MEAN PLATELET VOLUME 9.6 fL (8.7-11.7); PLATELET CLUMPS FLAG 0 (0-99); PLATELET COUNT 378 10^3/uL (150-400); RED BLOOD CELL COUNT 3.18 10^6/uL (4.40-6.38); RED CELL DISTRIBUTION WIDTH 17.2 % (11.5-15.2)
[2016-05-24] MEDS ORDERED: PANTOPRAZOLE SODIUM 40 MG in NS 100 ML IV SCH (16:00)
[2016-05-24 16:13] LABS: PLATELET ESTIMATE ADEQUATE (ADEQ)
[2016-05-24 16:22] LABS: MICROCYTES 2+
--- NOTE | 2016-05-24 16:22 | HOSPPROG ---
Hospitalist Progress Note Assessment/Plan: 81 yo M w recent complex hospital stay here w MILLA, possible enterocutaneous fistula possible upper gi bleed: attributable to steroids restart ppi hold sc heparin dc steroids Peritonitis/intra-abdominal abscess. s/p multiple I&Ds and perc drain placed by IR, persistent duodenal leak on small bowel follow-through duodenal perf s/p repair with omental patch zosyn.micafungin 05/23: increased drainage from CHARLIE (does not look like tube feeds), leukocytosis and increased blood sugars noted. if this trend continues, may need further imaging 05/24 :discussed increased drainage w dr andrews. scan tomoorw high threshold for reoperation MILLA. 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 Evidenced by SpO2 50% and requiring up to 25LPM 100% FiO2 high-flow w/ ongoing tachypnea, suspect 2/2 volume overload + possible dapto rxn intubated 05/20 stopped dapto removing volume w/ lasix and HD on steroids SIRS. Tachycardic/Tachypneic and ongoing leukocytosis, unclear if there is additional source of infxn repeat BCx NGTD consider worsening intra-abdominal source, and if symptomatic from an abd standpoint, would rec re-ex-lap Basilic vein superficial thrombosis. PICC removed, if resp status worsening consider systemic anticoagulation hep prophylaxis Acute encephalopathy. Evidenced by global brain dysfunction characterized as poor responsiveness, inability to follow commands, this is an acute change from his baseline, most likely secondary to the toxic effects of Ativan and potential infection Thrombocytopenia. HIT panel neg, cont to monitor Drug rash. 2/2 levofloxacin Atrial fibrillation w/ RVR. Initially appeared to be SVT, rate controlled on dilt gtt, now appears to be AFib on tele (personally interpreted) Diet. TPN, volume reduced Prophylaxis. High risk patient, heparin subcu Code. Full code Disposition. Anticipated discharge uncertain, remains critically ill Complexity patient, high risk for worsening morbidity and/or mortality, secondary to the issues outlined above. Subjective: dark material in NGT. Objective: Vital Signs Temp Pulse Resp BP Pulse Ox 36.5 C 86 27 H 172/89 H 94 05/24/16 13:04 05/24/16 16:00 05/24/16 16:00 05/24/16 16:00 05/24/16 16:00 Microbiology 05/20/16 04:05 Mycobacterial Smear (TROY) - Final Bronchial [place] - Bilateral Lobes Laboratory Results 05/24/16 15:43 05/24/16 05:06 05/23/16 05/24/16 05/25/16 05:59 05:59 05:59 Intake Total 1592.3 Output Total 1440 115 Balance 152.3 -115 PT 15.0 SEC (12.0-15.0) 05/24/16 05:06 INR 1.18 (0.83-1.16) H 05/24/16 05:06 - Physical Exam Constitutional: no apparent distress, other (confused) Eyes: PERRL, anicteric sclera Ears, Nose, Mouth, Throat: moist mucous membranes, hearing normal Cardiovascular: regular rate and rhythym, no murmur, rub, or gallop, tachycardia Respiratory: no respiratory distress, no rales or rhonchi Gastrointestinal: normoactive bowel sounds, soft, non-tender abdomen Genitourinary: amado in urethra Skin: warm, normal color Musculoskeletal: full muscle strength, no muscle tenderness Neurologic: No AAOx3 Psychiatric: not anxious, No interacting appropriately Lymph, Heme, Immunologic: no cervical LAD ICD10 Worksheet Patient Problems: Problems Problem Status Onset Hypoxia Acute Pneumonia Acute
[2016-05-24 16:27] LABS: HYPOCHROMIA 1+
--- NOTE | 2016-05-24 16:47 | PCMIDPN ---
Assessment/Plan: Assessment/Plan: * Polymicrobial abdominal abscess and peritonitis following duodenal perforation after ERCP for choledocholithiasis with associated E coli bacteremia : Continue Zosyn and micafungin. White blood cell count increased today which is possibly related to steroid use. Continue to monitor. 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 Extubated with stable respiratory status today. 05/24/16 16:43 05/24/16 16:54 Subjective: Patient with blood in NG tube secretions today. Objective: Vital Signs Temp Pulse Resp BP Pulse Ox 36.5 C 86 27 H 172/89 H 94 05/24/16 13:04 05/24/16 16:00 05/24/16 16:00 05/24/16 16:00 05/24/16 16:00 Microbiology 05/20/16 04:05 Mycobacterial Smear (TROY) - Final Bronchial [place] - Bilateral Lobes Laboratory Results 05/24/16 15:43 05/24/16 05:06 05/23/16 05/24/16 05/25/16 05:59 05:59 05:59 Intake Total 1592.3 Output Total 1440 115 Balance 152.3 -115 Zosyn # 5 Micafungin # 16 Blood cultures 05/20/2016 no growth Chest x-ray with bilateral infiltrates - Physical Exam General Appearance: alert, no apparent distress EENT: No scleral icterus Respiratory: coarse breath sounds Cardiac/Chest: regular rate, rhythm Abdomen: non-tender, other (CHARLIE with brown colored output), No distended ICD10 Worksheet Patient Problems: Problems Problem Status Onset Hypoxia Acute Pneumonia Acute
[2016-05-24] MEDS: LORazepam 2 MG/ML INJ IV PRN (17:45)
[2016-05-24] MEDS: TPN W/ FAMOTIDINE 1 EA BAG IV SCH (20:45)
[2016-05-24] MEDS: PANTOPRAZOLE SODIUM 40 MG in NS 100 ML IV SCH (20:45)
[2016-05-25 03:59] LABS: ABSOLUTE NRBC COUNT 0.02 10^3/uL (0-0.01); ADD DIFF? YES; ADD MORPH? NO; ATYPICAL LYMPHOCYTE FLAG 20 (0-99); FRAGMENT RBC FLAG 20 (0-99); HEMATOCRIT 26.4 % (40.0-51.0); HEMOGLOBIN 9.1 g/dL (13.7-17.5); LIPEMIA HEMOLYSIS FLAG 90 (0-99); MEAN CELL HEMOGLOBIN 30.1 pg (27.9-34.1); MEAN CELL HEMOGLOBIN CONCENTR. 34.5 g/dL (32.4-36.7); MEAN CELL VOLUME 87.4 fL (81.5-99.8); MEAN PLATELET VOLUME 9.8 fL (8.7-11.7); NRBC-AUTO% 0.1 % (0.0-0.2); PLATELET CLUMPS FLAG 0 (0-99); PLATELET COUNT 250 10^3/uL (150-400); RED BLOOD CELL COUNT 3.02 10^6/uL (4.40-6.38); RED CELL DISTRIBUTION WIDTH 17.3 % (11.5-15.2)
[2016-05-25 04:01] LABS: ADD SCAN? NO; LEFT SHIFT FLG 130 (0-99)
[2016-05-25 04:15] LABS: ALBUMIN 2.8 g/dL (3.5-5.0); CARBON DIOXIDE 25 mEq/l (22-31); CREATININE 3.2 mg/dL (0.7-1.3); GLOMERULAR FILTRATION RATE 19; POTASSIUM 3.2 mEq/L (3.5-5.2); SODIUM 138 mEq/L (134-144)
[2016-05-25 04:16] LABS: CALCIUM 9.5 mg/dL (8.5-10.4)
[2016-05-25 04:37] LABS: ANION GAP 12 mEq/L (8-16); CHLORIDE 101 mEq/L (97-110); GLUCOSE 110 mg/dL (70-100)
[2016-05-25 04:51] LABS: HYPOCHROMIA 1+; MACROCYTES 1+; MICROCYTES 1+; PLATELET ESTIMATE ADEQUATE (ADEQ)
[2016-05-25] MEDS: INSULIN REGULAR, HUMAN 100 UNIT/1 ML VIAL HIGH SC SCH ×6 (04:52→23:42)
[2016-05-25] MEDS: PIPERACILLIN/TAZO 2.25 GM/DEX 50 ML IV SCH ×3 (05:05→21:37)
[2016-05-25] MEDS: CHLORHEXIDINE GLUCONATE 15 ML UDL PO SCH ×2 (07:50→19:21)
[2016-05-25] MEDS: PANTOPRAZOLE SODIUM 40 MG in NS 100 ML IV SCH ×2 (07:56→19:36)
[2016-05-25] MEDS: FUROSEMIDE 100 MG/10 ML VIAL IV SCH ×2 (07:57→17:20)
[2016-05-25] MEDS: MICAFUNGIN NA 100 MG in NS 100 ML IV SCH (08:41)
--- NOTE | 2016-05-25 08:48 | PCMIDPN ---
Assessment/Plan: Assessment/Plan: 1. Sepsis 04/15 to Peritonitis/abdominal abscess s/p ETIENNE drain placement, ongoing leak: - ETIENNE drain placed on 05/09/16. -Currently on zosyn and micafungin for broad coverage. -Cx from recent drain in progress. GS with GNR, GVR, and cx: E. fecalis, and Lactobacillus. - PRevious cx with E. fecalis and PsA from abd abscess (04/20/16). PsA intermediate to aztreonam -wbc up today but likely multifactorial. -Ct abd from 05/20/16 reviewed. -blood cx from 05/04 and 05/20/16 ngtd -Care coordinated with [facility] 2. Bilateral infiltrates: - Dapto induced pneumonitis vs other. Clinically improving - BAL with eosinophils. -Off dapto now. s/p course of steroids from 05/20-05/24/16. -extubated. O2 at 4L. 3. Rash from levaquin 4. Multiple antibiotic reactions. 5. ARF: Meds -micafungin 100mg daily- 05/09/16---- -zosyn 2.25gm q8- 05/20/16---- s/p -dapto 540mg q48-05/09/16-05/19/16 -aztreonam 500mg q8-05/09/16-05/20/16 -flagyl 500mg q8- 17-05/20/16 Subjective: Afebrile. Extubated. awake. answering questions. denies cheri abd pain but has discomfort. breathing easy. NGt tube. etienne drain with bile colored fluid now as opposed to purulent looking material previously noted. Objective: Vital Signs Temp Pulse Resp BP Pulse Ox 36.8 C 90 20 146/89 H 91 L 05/25/16 08:00 05/25/16 08:00 05/25/16 08:00 05/25/16 08:00 05/25/16 08:00 Microbiology 05/20/16 04:40 Blood Culture - Final Blood 05/20/16 05:00 Blood Culture - Final Blood 05/20/16 04:05 Mycobacterial Smear (TROY) - Final Bronchial [place] - Bilateral Lobes Laboratory Results 05/25/16 03:35 05/25/16 03:35 05/24/16 05/25/16 05/26/16 05:59 05:59 05:59 Intake Total 1592.3 1556 Output Total 1440 1475 Balance 152.3 81 - Physical Exam General Appearance: alert, no apparent distress Respiratory: coarse breath sounds Cardiac/Chest: regular rate, rhythm Extremities: No swelling Abdomen: normal bowel sounds, non-tender, soft, distended, other (jejunostomy tube noted. ETIENNE drain on right side with bile looking fluid) ICD10 Worksheet Patient Problems: Problems Problem Status Onset Hypoxia Acute Pneumonia Acute
--- NOTE | 2016-05-25 10:15 | SOAPPROG ---
SOAP Progress Note Assessment/Plan: Assessment/Plan 81yo M c duodenal perf s/p ex lap, repair and washout x2. Persistent leak - Continues to saturate well on NC, lungs sound much clearer - Abdomen remains soft, NGT has slowed. Restarted BID PPI given coffee ground appearance of NGT. CHARLIE output slowing, character has changed from purulent to bilious. WBC remains elevated. CT c PO contrast today to get better idea of poss undrained collection, persistent fistula. 05/06/16 13:11 05/07/16 12:00 05/07/16 12:01 05/08/16 12:18 05/09/16 09:10 05/10/16 09:26 05/13/16 13:09 05/14/16 11:20 05/15/16 11:09 05/16/16 10:43 05/17/16 11:28 05/18/16 15:47 05/20/16 11:01 05/21/16 16:44 05/24/16 11:44 05/25/16 10:13 Subjective: A little confused, but denies pain. Otherwise stable. Objective: Vital Signs Temp Pulse Resp BP Pulse Ox 36.8 C 90 20 146/89 H 91 L 05/25/16 08:00 05/25/16 08:00 05/25/16 08:00 05/25/16 08:00 05/25/16 08:00 Microbiology 05/20/16 04:40 Blood Culture - Final Blood 05/20/16 05:00 Blood Culture - Final Blood 05/20/16 04:05 Mycobacterial Smear (TROY) - Final Bronchial [place] - Bilateral Lobes Laboratory Results 05/25/16 03:35 05/25/16 03:35 05/24/16 05/25/16 05/26/16 05:59 05:59 05:59 Intake Total 1592.3 1556 Output Total 1440 1475 Balance 152.3 81 PT 15.0 SEC (12.0-15.0) 05/24/16 05:06 INR 1.18 (0.83-1.16) H 05/24/16 05:06 ICD10 Worksheet Patient Problems: Problems Problem Status Onset Hypoxia Acute Pneumonia Acute
--- NOTE | 2016-05-25 10:49 | WOCRNPDOC ---
WOCRN Advanced Assessment Note - Skin Integrity Problem, Advanced Assess Bilateral Posterior Ear Dressing Type: Open to Air (foam tubing protectors in place bilaterally over O2 tubing) Exudate Amount: None Exudate Characteristic(s): None Megan Wound Tissue: Blanching Megan Wound Swelling: None Wound Bed Color: Red Skin Integrity Problem Comment: Blanching erythema noted on tops of bilateral ears, w/ no associated swelling and no skin breakdown evident. Skin is presently intact. Nursing placed tubing protectors over O2 tubing, which is an appropriate intervention. Nursing should continue to monitor site. Wound care does not need to continue to follow.
--- NOTE | 2016-05-25 12:00 | PDINTPN ---
Bag[facility]/Woman Progress Note Assessment/Plan: Assessment/Plan: * Acute respiratory failure. Intubated 05/20. Stable post extubation * Diffuse Infiltrates-Some of these changes were likely related to volume overload and renal failure, daptomycin possibility -check CXR in am * Peritonitis, abdominal abscesses/infection. Per surgery and Infectious Disease. -CT abd/pelvis today * Acute renal failure. Putting out more urine, non oliguric now. BUN and creatinine coming down. On every other day hemodialysis. * Superficial DVT related to the right arm. On prophylactic heparin. * Nutrition: TPN. * Metabolic: Glucoses quite high secondary to TPN and steroids. On insulin by sliding scale and in TPN. Being adjusted. * DVT prophylaxis: Subcu heparin. Overall, slowly improving. 05/25/16 11:58 Subjective: Comfortable Objective: Vital Signs Temp Pulse Resp BP Pulse Ox 36.8 C 76 18 146/96 H 99 05/25/16 08:00 05/25/16 10:00 05/25/16 10:00 05/25/16 10:00 05/25/16 10:00 Microbiology 05/20/16 04:40 Blood Culture - Final Blood 05/20/16 05:00 Blood Culture - Final Blood 05/20/16 04:05 Mycobacterial Smear (TROY) - Final Bronchial [place] - Bilateral Lobes Laboratory Results 05/25/16 03:35 05/25/16 03:35 05/24/16 05/25/16 05/26/16 05:59 05:59 05:59 Intake Total 1592.3 1556 Output Total 1440 1475 Balance 152.3 81 PT 15.0 SEC (12.0-15.0) 05/24/16 05:06 INR 1.18 (0.83-1.16) H 05/24/16 05:06 Physical Exam - Physical Exam General Appearance: alert, no apparent distress EENT: PERRL/EOMI, normal ENT inspection Neck: non-tender, full range of motion Respiratory: crackles (few), No respiratory distress, No wheezing Cardiac/Chest: normal peripheral pulses, regular rate, rhythm, systolic murmur Abdomen: normal bowel sounds, soft, No non-tender Male Genitalia: deferred Rectal: deferred Skin: normal color, warm/dry Extremities: normal range of motion, non-tender, normal inspection, normal capillary refill ICD10 Worksheet Patient Problems: Problems Problem Status Onset Hypoxia Acute Pneumonia Acute
[2016-05-25] MEDS ORDERED: ATROPINE SULFATE 1 MG/10 ML SYR ONE (14:52)
--- NOTE | 2016-05-25 16:52 | SOAPPROG ---
SOAP Progress Note Assessment/Plan: Assessment: 1. arf: atn on sediment, non-oliguric with lasix but no convincing evidence of recovery yet. Hd tomorrow. Volume status much improved from last week. 2. anemia: transfuse prn 3. Overload: Much improved, cont lasix to help manage this and minimize uf requirements on hd. Plan: 05/05/16 18:21 05/11/16 18:23 05/18/16 15:01 05/25/16 16:50 Subjective: Awake/alert. S/p hd last pm. Objective: Vital Signs Temp Pulse Resp BP Pulse Ox 37 C 79 19 164/90 H 98 05/25/16 16:00 05/25/16 16:00 05/25/16 16:00 05/25/16 16:00 05/25/16 16:00 Microbiology 05/20/16 04:05 Mycobacterial Smear (TROY) - Final Bronchial [place] - Bilateral Lobes 05/20/16 04:40 Blood Culture - Final Blood 05/20/16 05:00 Blood Culture - Final Blood Laboratory Results 05/25/16 03:35 05/25/16 03:35 05/24/16 05/25/16 05/26/16 05:59 05:59 05:59 Intake Total 1592.3 1556 Output Total 1440 1475 Balance 152.3 81 PT 15.0 SEC (12.0-15.0) 05/24/16 05:06 INR 1.18 (0.83-1.16) H 05/24/16 05:06 Physical Exam - Physical Exam General Appearance: no apparent distress, other (frail) Respiratory: lungs clear (anteriorly) Cardiac/Chest: regular rate, rhythm Extremities: other (minimal edema) ICD10 Worksheet Patient Problems: Problems Problem Status Onset Hypoxia Acute Pneumonia Acute
--- NOTE | 2016-05-25 17:34 | HOSPPROG ---
Hospitalist Progress Note Assessment/Plan: 81 yo M w recent complex hospital stay for ecoli bacteremia 2/2 choledocholithiasis and duodenal perforation s/p ERCP now here w MILLA, peritonitis # milla: oliguric but improving, 2/2 ATN, continues to require HD, appreciate renal following # Peritonitis/intra-abdominal abscess. s/p multiple I&Ds and perc drain placed by IR, persistent duodenal leak now s/p repair with omental patch. Given increased drain output and elevated wbc, repeat ct planned for today. continue zosyn/micafungin with e. faecalis and lactobacillus on culture. # Acute hypoxic respiratory failure.intubaed 05/20 and now stable post extubateoin , cxr personally reviewed and notable for bilateral infiltrates, pneumonitis versus ARDS. Continue lasix/hd/steroids. 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 Tachycardic/Tachypneic and ongoing leukocytosis, unclear if there is additional source of infxn repeat BCx NGTD, repeat ct abd today # Basilic vein superficial thrombosis. PICC removed, if resp status worsening consider systemic anticoagulation hep prophylaxis # Acute encephalopathy. Evidenced by global brain dysfunction characterized as poor responsiveness, inability to follow commands, this is an acute change from his baseline, most likely secondary to the toxic effects of Ativan and potential infection and now improved Thrombocytopenia. HIT panel neg, cont to monitor Drug rash. 2/2 levofloxacin Atrial fibrillation w/ RVR. Initially appeared to be SVT, rate controlled on dilt gtt, now appears to be AFib on tele (personally interpreted) Diet. TPN, volume reduced Prophylaxis. High risk patient, heparin subcu Code. Full code Disposition. Anticipated discharge uncertain, remains critically ill Patient new to my care. Old records reviewed and summarized as above. Care plan reviewed with Dr. Tate and multidisciplinary care team on rounds. Subjective: no significant overnight events, increased drainage from drain Objective: Vital Signs Temp Pulse Resp BP Pulse Ox 37 C 79 19 164/90 H 98 05/25/16 16:00 05/25/16 16:00 05/25/16 16:00 05/25/16 16:00 05/25/16 16:00 Microbiology 05/20/16 04:05 Mycobacterial Smear (TROY) - Final Bronchial [place] - Bilateral Lobes 05/20/16 04:40 Blood Culture - Final Blood 05/20/16 05:00 Blood Culture - Final Blood Laboratory Results 05/25/16 03:35 05/25/16 03:35 05/24/16 05/25/16 05/26/16 05:59 05:59 05:59 Intake Total 1592.3 1556 965 Output Total 1440 1475 1160 Balance 152.3 81 -195 PT 15.0 SEC (12.0-15.0) 05/24/16 05:06 INR 1.18 (0.83-1.16) H 05/24/16 05:06 chronically ill appearing anicteric op clear rrr no mrg dec bs at bases normal wob soft diffuse ttp no cce warm dry well perfused oriented appropriate ICD10 Worksheet Patient Problems: Problems Problem Status Onset Hypoxia Acute Pneumonia Acute
[2016-05-25] MEDS: TPN 1 EA BAG IV SCH (19:28)
[2016-05-25] MEDS: LORazepam 2 MG/ML INJ IV PRN (19:51)
[2016-05-26] MEDS: LORazepam 2 MG/ML INJ IV PRN (01:48)
[2016-05-26] MEDS: INSULIN REGULAR, HUMAN 100 UNIT/1 ML VIAL HIGH SC SCH ×6 (03:22→23:19)
[2016-05-26 03:45] LABS: ALBUMIN 2.5 g/dL (3.5-5.0); ANION GAP 15 mEq/L (8-16); CALCIUM 9.4 mg/dL (8.5-10.4); CARBON DIOXIDE 21 mEq/l (22-31); CHLORIDE 103 mEq/L (97-110); CREATININE 4.3 mg/dL (0.7-1.3); GLOMERULAR FILTRATION RATE 13; GLUCOSE 122 mg/dL (70-100); POTASSIUM 3.4 mEq/L (3.5-5.2); SODIUM 139 mEq/L (134-144)
[2016-05-26 03:48] LABS: ADD DIFF? YES; ADD MORPH? NO; ATYPICAL LYMPHOCYTE FLAG 10 (0-99); FRAGMENT RBC FLAG 20 (0-99); HEMATOCRIT 23.7 % (40.0-51.0); LIPEMIA HEMOLYSIS FLAG 90 (0-99); MEAN CELL HEMOGLOBIN 30.3 pg (27.9-34.1); MEAN CELL HEMOGLOBIN CONCENTR. 33.8 g/dL (32.4-36.7); MEAN CELL VOLUME 89.8 fL (81.5-99.8); MEAN PLATELET VOLUME 9.9 fL (8.7-11.7); PLATELET CLUMPS FLAG 0 (0-99); PLATELET COUNT 281 10^3/uL (150-400); RED BLOOD CELL COUNT 2.64 10^6/uL (4.40-6.38); RED CELL DISTRIBUTION WIDTH 17.3 % (11.5-15.2)
[2016-05-26 03:50] LABS: ADD SCAN? NO; LEFT SHIFT FLG 130 (0-99)
[2016-05-26 04:10] LABS: HYPOCHROMIA 1+; LARGE PLATELETS PRESENT; MACROCYTES 1+; MICROCYTES 1+; PLATELET ESTIMATE ADEQUATE (ADEQ)
[2016-05-26] MEDS: PIPERACILLIN/TAZO 2.25 GM/DEX 50 ML IV SCH ×5 (05:07→23:12)
[2016-05-26] MEDS: HEPARIN 5,000 UNIT/0.5 ML SYR SC SCH ×3 (05:15→23:13)
[2016-05-26] MEDS: PANTOPRAZOLE SODIUM 40 MG in NS 100 ML IV SCH ×2 (08:14→21:40)
[2016-05-26] MEDS: CHLORHEXIDINE GLUCONATE 15 ML UDL PO SCH ×2 (08:14→21:40)
[2016-05-26] MEDS: FUROSEMIDE 100 MG/10 ML VIAL IV SCH ×2 (08:14→17:37)
--- NOTE | 2016-05-26 08:18 | SOAPPROG ---
SOAP Progress Note Assessment/Plan: Assessment: 1. MILLA. Consistent with ATN. UOP decent, continue lasix. Still no recovery. Volume status much improved, wt down 7kg. With NG output, will decrease lasix to once daily. Dialysis later today. 2. Abdominal abscess. Continue broad spectrum abx, antifungals and drain. CT yesterday showed no leak. 3. Malnutrition. Continue tpn. 4. Hypokalemia. Dialyze on 4 K bath. Plan: 05/12/16 09:17 05/14/16 13:52 05/14/16 13:53 05/15/16 13:51 05/16/16 14:28 05/16/16 14:29 05/26/16 08:15 05/26/16 08:17 Subjective: Sleeping comfortably. Objective: Vital Signs Temp Pulse Resp BP Pulse Ox 36.1 C 78 17 147/76 H 99 05/26/16 04:00 05/26/16 07:22 05/26/16 07:22 05/26/16 07:22 05/26/16 07:22 Microbiology 05/20/16 04:05 Mycobacterial Smear (TROY) - Final Bronchial [place] - Bilateral Lobes 05/20/16 04:40 Blood Culture - Final Blood 05/20/16 05:00 Blood Culture - Final Blood Laboratory Results 05/26/16 03:15 05/26/16 03:15 05/25/16 05/26/16 05/27/16 05:59 05:59 05:59 Intake Total 1556 1765 Output Total 1475 1745 50 Balance 81 20 -50 PT 15.0 SEC (12.0-15.0) 05/24/16 05:06 INR 1.18 (0.83-1.16) H 05/24/16 05:06 Sleeping comfortably. RRR, no m/g/r CTAB Abdom soft, nt No LE edema ICD10 Worksheet Patient Problems: Problems Problem Status Onset Hypoxia Acute Pneumonia Acute
[2016-05-26] MEDS: MICAFUNGIN NA 100 MG in NS 100 ML IV SCH (08:38)
--- NOTE | 2016-05-26 09:09 | PCMIDPN ---
Assessment/Plan: 81 Year old male with complex hospital course now with: # Multiple bouts of Sepsis secondary to polymicrobial peritonitis from duodenal perforation. Recently extubated 05/20. CT scan yesterday shows no further leak. Drainage from CHARLIE bulb 95cc yesterday down from 230 and 340cc 2 days prior. Remains AF, leukocytosis persists, hemodynamics stable. --continue zosyn for coverage of enterococcus, lactobacillus, PsA and empiric micafungin for summer coverage --length of therapy difficult to assess because difficulty getting complete source control. Possibly nearing source control with no clear leak remaining, decreased CHARLIE drainage and drainage changed in character (no longer purulent). 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 Tate Subjective: patient received ativan this AM, awake but not responding to questions this AM. no other specific events overnight Objective: Vital Signs Temp Pulse Resp BP Pulse Ox 36.1 C 78 17 147/76 H 99 05/26/16 04:00 05/26/16 07:22 05/26/16 07:22 05/26/16 07:22 05/26/16 07:22 Microbiology 05/20/16 04:05 Mycobacterial Smear (TROY) - Final Bronchial [place] - Bilateral Lobes 05/20/16 04:40 Blood Culture - Final Blood 05/20/16 05:00 Blood Culture - Final Blood Laboratory Results 05/26/16 03:15 05/26/16 03:15 05/25/16 05/26/16 05/27/16 05:59 05:59 05:59 Intake Total 1556 1765 Output Total 1475 1745 50 Balance 81 20 -50 - Physical Exam General Appearance: alert, no apparent distress, other (not responding to commands) EENT: pale conjunctiva, No scleral icterus, No thrush Respiratory: other (decrease bs in bases but no crackles), No accessory muscle use Cardiac/Chest: regular rate, rhythm Extremities: pedal edema (minimal now) Abdomen: normal bowel sounds, non-tender, soft, distended (slight), other (R CHARLIE drain with dark green drainage) Male Genitalia: amado Skin: pallor, No rash - Line/s LUE PICC Lines: No drainage, No erythema Kim Lines: other (R IJ), No drainage, No erythema - Time Spent With Patient Time Spent with Patient: greater than 35 minutes Time Spent with Patient: Greater than 35 minutes spent on this patients care, greater than 50% of time spent counseling, educating, and coordinating care regarding the above mentioned plan. ICD10 Worksheet Patient Problems: Problems Problem Status Onset Hypoxia Acute Pneumonia Acute
--- NOTE | 2016-05-26 10:35 | SOAPPROG ---
SOAP Progress Note Assessment/Plan: Assessment/Plan: 81yo M c duodenal perf s/p ex lap, repair and washout x2. Persistent leak CT yesterday without evidence of fistula/leak. O2 needs stable off vent. Abdomen is soft, NT. NG in place. CHARLIE drainage thinner, but darker. Still on HD. Seen and examined with Dr. Rebollar. S:no complaints. smiling. denies pain. O: alert, nonverbal this am. ng in place breath sounds improved, more clear, less rales rrr abd soft drain thin dark brown 05/26/16 10:35 Objective: Vital Signs Temp Pulse Resp BP Pulse Ox 36.1 C 94 17 158/88 H 92 05/26/16 04:00 05/26/16 10:00 05/26/16 10:00 05/26/16 10:00 05/26/16 10:00 Microbiology 05/20/16 04:05 Mycobacterial Smear (TROY) - Final Bronchial [place] - Bilateral Lobes 05/20/16 04:40 Blood Culture - Final Blood 05/20/16 05:00 Blood Culture - Final Blood Laboratory Results 05/26/16 03:15 05/26/16 03:15 05/25/16 05/26/16 05/27/16 05:59 05:59 05:59 Intake Total 1556 1765 Output Total 1475 1745 300 Balance 81 20 -300 PT 15.0 SEC (12.0-15.0) 05/24/16 05:06 INR 1.18 (0.83-1.16) H 05/24/16 05:06 ICD10 Worksheet Patient Problems: Problems Problem Status Onset Hypoxia Acute Pneumonia Acute
--- NOTE | 2016-05-26 16:54 | HOSPPROG ---
Hospitalist Progress Note Assessment/Plan: 81 yo M w recent complex hospital stay for ecoli bacteremia 2/2 choledocholithiasis and duodenal perforation s/p ERCP now here w MILLA, peritonitis # milla: oliguric but improving, 2/2 ATN, continues to require HD which will be done later today again, following daily, appreciate renal following # Peritonitis/intra-abdominal abscess. s/p multiple I&Ds and perc drain placed by IR, persistent duodenal leak now s/p repair with omental patch. repeat abd ct performed yesterday without any clear new issues. Continue zosyn/micafungin, length of treatment unclear at this time. ID following. # Acute hypoxic respiratory failure.intubaed 05/20 and now stable post extubation , bilateral infiltrates and bilateral pleural effusions, pneumonitis versus ARDS. Continue lasix/hd/steroids. 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 Tachycardic/Tachypneic and ongoing leukocytosis though trending slightly down, continue monitoring and tx as above, repeat ct reasssuring, # Basilic vein superficial thrombosis. PICC removed, no systemic AC # Acute encephalopathy. continues to have slow responsiveness and increased somnolence which is not his usual baseline, some may be med related but continued post ativan. Does appear to be largely related to delerium with some waxing/waning mentation. Thrombocytopenia. HIT panel neg, cont to monitor Drug rash. 2/2 levofloxacin Atrial fibrillation w/ RVR. Initially appeared to be SVT, rate controlled on dilt gtt, now appears to be AFib on tele (personally interpreted) Diet. TPN, volume reduced Prophylaxis. High risk patient, heparin subcu Code. Full code Disposition. Anticipated discharge uncertain, transfer to [facility] surg Care plan reviewed with multidisciplinary care team on rounds. Subjective: no significant overnight events, patient does not c/o increased pain , he is a bit somnolent, slow in response Objective: Vital Signs Temp Pulse Resp BP Pulse Ox 37.2 C 91 16 145/96 H 91 L 05/26/16 16:48 05/26/16 16:48 05/26/16 16:48 05/26/16 16:48 05/26/16 16:48 Microbiology 05/20/16 04:05 Mycobacterial Smear (TROY) - Final Bronchial [place] - Bilateral Lobes Laboratory Results 05/26/16 03:15 05/26/16 03:15 05/25/16 05/26/16 05/27/16 05:59 05:59 05:59 Intake Total 1556 1765 Output Total 1475 1745 300 Balance 81 20 -300 PT 15.0 SEC (12.0-15.0) 05/24/16 05:06 INR 1.18 (0.83-1.16) H 05/24/16 05:06 chronically ill appearing anicteric op clear rrr no mrg dec bs at bases normal wob soft diffuse ttp no cce warm dry well perfused oriented appropriate ICD10 Worksheet Patient Problems: Problems Problem Status Onset Hypoxia Acute Pneumonia Acute
[2016-05-26] MEDS ORDERED: FUROSEMIDE 40 MG/4 ML VIAL ONE (17:34)
[2016-05-26] MEDS: ACETAMINOPHEN 650 MG SUPP PR PRN (18:29)
[2016-05-26] MEDS ORDERED: HEPARIN 50,000 UNIT/10 ML VIAL ONE (21:00)
[2016-05-26] MEDS: TPN 1 EA BAG IV SCH (21:52)
[2016-05-27] MEDS: LORazepam 2 MG/ML INJ IV PRN ×2 (00:28→21:27)
[2016-05-27] MEDS: HEPARIN 5,000 UNIT/0.5 ML SYR SC SCH ×3 (05:08→21:37)
[2016-05-27] MEDS: PIPERACILLIN/TAZO 2.25 GM/DEX 50 ML IV SCH ×3 (05:08→21:32)
[2016-05-27] MEDS: INSULIN REGULAR, HUMAN 100 UNIT/1 ML VIAL HIGH SC SCH ×4 (05:14→23:45)
[2016-05-27] MEDS: FUROSEMIDE 100 MG/10 ML VIAL IV SCH (08:07)
[2016-05-27] MEDS: CHLORHEXIDINE GLUCONATE 15 ML UDL PO SCH ×2 (08:07→21:46)
[2016-05-27] MEDS: MICAFUNGIN NA 100 MG in NS 100 ML IV SCH (08:08)
[2016-05-27] MEDS ORDERED: LIDOCAINE 1% 30 ML SDV ONE (08:30)
[2016-05-27] MEDS ORDERED: SODIUM BICARBONATE 10 MEQ/10 ML SYR IVP ONE (08:31)
[2016-05-27] MEDS ORDERED: BUPIVACAINE 0.5% 30 ML SDV ONE (08:31)
[2016-05-27] MEDS ORDERED: HEPARIN 50,000 UNIT/10 ML VIAL ONE (08:35)
[2016-05-27] MEDS ORDERED: PROPOFOL 200 MG/20 ML VIAL ONE (09:39)
[2016-05-27] MEDS ORDERED: fentaNYL 100 MCG/2 ML INJ ONE (09:39)
--- NOTE | 2016-05-27 10:20 | POSTOPPROG ---
Post Op Note Date of Operation: 05/27/16 Surgeon: Manjit Dunbar Anesthesiologist: Valeriano Anesthesia: IV Sedation Pre-op Diagnosis: renal failure Post-op Diagnosis: same Procedure: Tunneled Dialysis Cath Placement Findings: 23cm Palindrome successfully placed into R IJ Inf/Abcess present in the surg proc area at time of surgery?: No EBL: Minimal
[2016-05-27] MEDS: PANTOPRAZOLE SODIUM 40 MG in NS 100 ML IV SCH ×2 (12:21→22:00)
[2016-05-27 13:22] LABS: ADD DIFF? YES; ADD MORPH? NO; ATYPICAL LYMPHOCYTE FLAG 0 (0-99); FRAGMENT RBC FLAG 20 (0-99); HEMATOCRIT 24.9 % (40.0-51.0); HEMOGLOBIN 8.4 g/dL (13.7-17.5); LIPEMIA HEMOLYSIS FLAG 80 (0-99); MEAN CELL HEMOGLOBIN 30.8 pg (27.9-34.1); MEAN CELL HEMOGLOBIN CONCENTR. 33.7 g/dL (32.4-36.7); MEAN CELL VOLUME 91.2 fL (81.5-99.8); MEAN PLATELET VOLUME 9.6 fL (8.7-11.7); PLATELET CLUMPS FLAG 30 (0-99); PLATELET COUNT 230 10^3/uL (150-400); RED BLOOD CELL COUNT 2.73 10^6/uL (4.40-6.38); RED CELL DISTRIBUTION WIDTH 17.5 % (11.5-15.2)
[2016-05-27 13:25] LABS: LEFT SHIFT FLG 120 (0-99)
[2016-05-27 13:26] LABS: ADD SCAN? NO
[2016-05-27 13:41] LABS: ALBUMIN 2.9 g/dL (3.5-5.0); ANION GAP 13 mEq/L (8-16); CALCIUM 8.9 mg/dL (8.5-10.4); CARBON DIOXIDE 24 mEq/l (22-31); CHLORIDE 103 mEq/L (97-110); CREATININE 4.1 mg/dL (0.7-1.3); GLOMERULAR FILTRATION RATE 14; GLUCOSE 124 mg/dL (70-100); POTASSIUM 3.6 mEq/L (3.5-5.2); SODIUM 140 mEq/L (134-144)
[2016-05-27 13:51] LABS: LARGE PLATELETS PRESENT; PLATELET ESTIMATE ADEQUATE (ADEQ)
[2016-05-27 13:58] LABS: HYPOCHROMIA 1+; MICROCYTES 1+
--- NOTE | 2016-05-27 14:43 | HOSPPROG ---
Hospitalist Progress Note Assessment/Plan: 81 yo M w recent complex hospital stay for ecoli bacteremia 2/2 choledocholithiasis and duodenal perforation s/p ERCP now here w MILLA, peritonitis # milla: oliguric but improving, 2/2 ATN, tunneled HD cath placed today, continue HD as needed, largely still necessary due to volume status # Peritonitis/intra-abdominal abscess/duodenal perforatoin. s/p multiple I&Ds and perc drain placed by IR, persistent duodenal leak now s/p repair with omental patch. NGT still in place, CHARLIE drainage continues. Continue zosyn/ micafungin--abd cx with e. faecalis and lactobacillus, length of treatment unclear at this time. ID following. # Acute hypoxic respiratory failure.intubaed 05/20 and now stable post extubation , bilateral infiltrates and bilateral pleural effusions again noted on repeat CXR, pneumonitis likely 2/2 daptomycin with dapto now listed as allergy. Continue lasix/hd. s/p steroids. 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 Tachycardic/Tachypneic and ongoing leukocytosis though trending slightly down, continue monitoring and tx as above, repeat ct reasssuring, # Basilic vein superficial thrombosis. PICC removed, no systemic AC # Acute encephalopathy. continues to have slow responsiveness and increased somnolence which is not his usual baseline, some may be med related but continued post ativan. Does appear to be largely related to delerium with some waxing/waning mentation. Today appears a bit more alert and responses more lucid. Thrombocytopenia. HIT panel neg, cont to monitor Drug rash. 2/2 levofloxacin Atrial fibrillation w/ RVR. Initially appeared to be SVT, rate controlled on dilt gtt, now appears to be AFib on tele (personally interpreted) Diet. TPN, volume reduced Prophylaxis. High risk patient, heparin subcu Code. Full code Disposition. Anticipated discharge uncertain Subjective: no significant overnight events, patient currently feeling better, he has some pain in his neck where tunneled cath was placed Objective: Vital Signs Temp Pulse Resp BP Pulse Ox 36.6 C 96 20 150/98 H 96 05/27/16 11:48 05/27/16 13:15 05/27/16 13:15 05/27/16 13:15 05/27/16 13:15 Laboratory Results 05/27/16 13:10 05/27/16 13:10 05/26/16 05/27/16 05/28/16 05:59 05:59 05:59 Intake Total 1765 1471 400 Output Total 1745 2270 360 Balance 20 -799 40 PT 15.0 SEC (12.0-15.0) 05/24/16 05:06 INR 1.18 (0.83-1.16) H 05/24/16 05:06 chronically ill appearing anicteric op clear rrr no mrg dec bs at bases normal wob soft diffuse ttp no cce warm dry well perfused oriented appropriate ICD10 Worksheet Patient Problems: Problems Problem Status Onset Hypoxia Acute Pneumonia Acute
--- NOTE | 2016-05-27 14:50 | WOCRNPDOC ---
WOCRN Advanced Assessment Note - Skin Integrity Problem, Advanced Assess Buttock Dressing Type: Open to Air Megan Wound Tissue: Blanching, Erythema, Intact Skin Integrity Problem Comment: Mild Incontinence, moisture associated dermatitis. No pressure injury present. Apply Dimethicone cream to scrotum and buttocks BID. Please reconsult prn.
--- NOTE | 2016-05-27 16:20 | SOAPPROG ---
SOAP Progress Note Assessment/Plan: Assessment/Plan 81yo M c duodenal perf s/p ex lap, repair and washout x2. Persistent leak - Back to OR today for cath exchange to tunneled, tolerated well - Abd remains soft, CT scan 2 days ago now without leak, CHARLIE output slowing. NGT output remains high, cont this - No new recs at this time. If NGT and CHARLIE output slow next week may consider enteral feeds 05/06/16 13:11 05/07/16 12:00 05/07/16 12:01 05/08/16 12:18 05/09/16 09:10 05/10/16 09:26 05/13/16 13:09 05/14/16 11:20 05/15/16 11:09 05/16/16 10:43 05/17/16 11:28 05/18/16 15:47 05/20/16 11:01 05/21/16 16:44 05/24/16 11:44 05/25/16 10:13 05/27/16 16:19 Subjective: sleepy after OR Objective: Vital Signs Temp Pulse Resp BP Pulse Ox 36.9 C 84 18 127/83 H 96 05/27/16 15:29 05/27/16 15:29 05/27/16 15:29 05/27/16 15:29 05/27/16 15:29 Laboratory Results 05/27/16 13:10 05/27/16 13:10 05/26/16 05/27/16 05/28/16 05:59 05:59 05:59 Intake Total 1765 1471 400 Output Total 1745 1230 360 Balance 20 -799 40 PT 15.0 SEC (12.0-15.0) 05/24/16 05:06 INR 1.18 (0.83-1.16) H 05/24/16 05:06 ICD10 Worksheet Patient Problems: Problems Problem Status Onset Hypoxia Acute Pneumonia Acute
[2016-05-27] MEDS ORDERED: FUROSEMIDE 40 MG/4 ML VIAL IVP SCH (17:00)
--- NOTE | 2016-05-27 19:54 | SOAPPROG ---
SOAP Progress Note Assessment/Plan: Assessment/Plan: MILLA: oliguric and likely ATN. Good UOP on Lasix but still not recovered. - Will plan on HD tomorrow. - Will continue Lasix. - Will continue to monitor her renal function closely for recovery. - Avoid MOM, morphine, NSAIDs, contrast, aminoglycosides, fleets, and other nephrotoxins. Hypervolemia: markedly improved, will stop Lasix. Anemia: Hgb stable at 8.4, will monitor. Subjective: No acute events overnight. Pt had catheter exchanged today. He is feeling tired overall. Objective: Vital Signs Temp Pulse Resp BP Pulse Ox 36.9 C 84 18 127/83 H 96 05/27/16 15:29 05/27/16 15:29 05/27/16 15:29 05/27/16 15:29 05/27/16 15:29 Laboratory Results 05/27/16 13:10 05/27/16 13:10 05/26/16 05/27/16 05/28/16 05:59 05:59 05:59 Intake Total 1765 1471 400 Output Total 1745 4270 800 Balance 20 -2799 -400 PT 15.0 SEC (12.0-15.0) 05/24/16 05:06 INR 1.18 (0.83-1.16) H 05/24/16 05:06 General: alert and oriented, no acute distress, appears uncomfortable Eyes; EOMI, PERRL CV: RRR Resp: nonlabored respirations on NC Abd; Soft, NT/ND Ext: no edema BLE Neuro: CN II-XII grossly intact, no asterixis Access; R IJ tunneled catheter ICD10 Worksheet Patient Problems: Problems Problem Status Onset Hypoxia Acute Pneumonia Acute
--- NOTE | 2016-05-27 21:31 | PCMIDPN ---
Assessment/Plan: Assessment: Continued abdominal fluid collection status post duodenal leak. Patient has some continued confusion although his respiratory status seems improved. Renal status has not recovered from ATN thus far and patient continues to be dialysis- dependent. Plan: 1. Continue both Zosyn and micafungin. 2. Follow laboratory values and respiratory status. 05/27/16 21:28 Subjective: Patient resting in his hospital room. Some confusion present. Speaks intelligibly, but the phrases do not make sense to the situation. Objective: Zosyn #8 micafungin #19 Vital Signs Temp Pulse Resp BP Pulse Ox 36.6 C 87 17 166/100 H 97 05/27/16 20:00 05/27/16 20:00 05/27/16 20:00 05/27/16 20:00 05/27/16 20:00 Laboratory Results 05/27/16 13:10 05/27/16 13:10 05/26/16 05/27/16 05/28/16 05:59 05:59 05:59 Intake Total 1765 1471 400 Output Total 1746 5158 800 Balance 20 -6348 -400 - Physical Exam General Appearance: WD/WN, alert, no apparent distress, non-toxic, other ( confused) Respiratory: lungs clear, normal breath sounds, No respiratory distress Cardiac/Chest: regular rate, rhythm, No tachycardia Extremities: non-tender, normal inspection Abdomen: soft, No mass Skin: normal color, warm/dry, No rash Neuro/Psych: alert, confused ICD10 Worksheet Patient Problems: Problems Problem Status Onset Hypoxia Acute Pneumonia Acute
[2016-05-27] MEDS: TPN 1 EA BAG IV SCH (21:58)
[2016-05-28] MEDS: LORazepam 2 MG/ML INJ IV PRN (00:17)
[2016-05-28] MEDS: HEPARIN 5,000 UNIT/0.5 ML SYR SC SCH ×3 (02:12→21:58)
[2016-05-28 04:48] LABS: ADD DIFF? YES; ADD MORPH? NO; ADD SCAN? NO; ATYPICAL LYMPHOCYTE FLAG 0 (0-99); FRAGMENT RBC FLAG 20 (0-99); LEFT SHIFT FLG 90 (0-99); LIPEMIA HEMOLYSIS FLAG 80 (0-99); MEAN CELL HEMOGLOBIN 30.7 pg (27.9-34.1); MEAN CELL HEMOGLOBIN CONCENTR. 33.3 g/dL (32.4-36.7); MEAN PLATELET VOLUME 10.3 fL (8.7-11.7); PLATELET CLUMPS FLAG 0 (0-99); PLATELET COUNT 252 10^3/uL (150-400); RED BLOOD CELL COUNT 2.61 10^6/uL (4.40-6.38); RED CELL DISTRIBUTION WIDTH 17.5 % (11.5-15.2)
[2016-05-28 04:59] LABS: ALBUMIN 2.9 g/dL (3.5-5.0); ANION GAP 18 mEq/L (8-16); CARBON DIOXIDE 22 mEq/l (22-31); CHLORIDE 104 mEq/L (97-110); CREATININE 4.8 mg/dL (0.7-1.3); GLOMERULAR FILTRATION RATE 12; GLUCOSE 101 mg/dL (70-100); POTASSIUM 3.8 mEq/L (3.5-5.2); SODIUM 144 mEq/L (134-144)
[2016-05-28] MEDS: PIPERACILLIN/TAZO 2.25 GM/DEX 50 ML IV SCH ×4 (05:13→23:02)
[2016-05-28 05:44] LABS: LARGE PLATELETS PRESENT; PLATELET ESTIMATE ADEQUATE (ADEQ)
[2016-05-28 05:45] LABS: HYPOCHROMIA 1+
[2016-05-28 05:46] LABS: MICROCYTES 2+
[2016-05-28] MEDS: INSULIN REGULAR, HUMAN 100 UNIT/1 ML VIAL HIGH SC SCH ×3 (05:52→18:34)
[2016-05-28] MEDS: CHLORHEXIDINE GLUCONATE 15 ML UDL PO SCH ×2 (08:47→22:00)
[2016-05-28] MEDS: MICAFUNGIN NA 100 MG in NS 100 ML IV SCH (08:48)
--- NOTE | 2016-05-28 08:51 | SOAPPROG ---
SOAP Progress Note Assessment/Plan: Assessment/Plan 81yo M c duodenal perf s/p ex lap, repair and washout x2. Persistent leak - HD cath site dressed appropriately - Abd remains soft, NT and ND. CHARLIE with brownish output, slowing (85/24hrs) - NGT slowing as well, would keepo through today and plan to d/c tomorrow. - HD per nephrology. 05/06/16 13:11 05/07/16 12:00 05/07/16 12:01 05/08/16 12:18 05/09/16 09:10 05/10/16 09:26 05/13/16 13:09 05/14/16 11:20 05/15/16 11:09 05/16/16 10:43 05/17/16 11:28 05/18/16 15:47 05/20/16 11:01 05/21/16 16:44 05/24/16 11:44 05/25/16 10:13 05/27/16 16:19 05/28/16 08:50 Subjective: More alert and oriented this AM, denies abd pain Objective: Vital Signs Temp Pulse Resp BP Pulse Ox 36.9 C 93 16 168/94 H 95 05/28/16 08:00 05/28/16 08:00 05/28/16 08:00 05/28/16 08:00 05/28/16 08:00 Laboratory Results 05/28/16 04:30 05/28/16 04:30 05/27/16 05/28/16 05/29/16 05:59 05:59 05:59 Intake Total 1471 1176 Output Total 1090 1545 Balance -2799 -369 PT 15.0 SEC (12.0-15.0) 05/24/16 05:06 INR 1.18 (0.83-1.16) H 05/24/16 05:06 ICD10 Worksheet Patient Problems: Problems Problem Status Onset Hypoxia Acute Pneumonia Acute
[2016-05-28] MEDS ORDERED: FUROSEMIDE 100 MG/10 ML VIAL IVP SCH (10:00)
[2016-05-28] MEDS: PANTOPRAZOLE SODIUM 40 MG in NS 100 ML IV SCH ×2 (10:31→22:00)
--- NOTE | 2016-05-28 10:47 | SOAPPROG ---
SOAP Progress Note Assessment/Plan: Assessment/Plan: MILLA: previously oliguric, likely ATN. Pt now with markedly improved UOP on Lasix but still not recovered. - Will plan on HD on Tuesday. - Will continue Lasix at daily dosing. - Will continue to monitor her renal function closely for recovery. - Avoid MOM, morphine, NSAIDs, contrast, aminoglycosides, fleets, and other nephrotoxins. Hypervolemia: markedly improved, will continue Lasix at daily dosing. Anemia: Hgb 8.0, will continue to monitor. Subjective: No acute events overnight. Pt worked with PT/OT this am but still requiring a lot of help, now very tired. Objective: Vital Signs Temp Pulse Resp BP Pulse Ox 36.9 C 83 16 155/94 H 96 05/28/16 08:00 05/28/16 09:20 05/28/16 09:20 05/28/16 09:20 05/28/16 09:20 Laboratory Results 05/28/16 04:30 05/28/16 04:30 05/27/16 05/28/16 05/29/16 05:59 05:59 05:59 Intake Total 1471 1176 Output Total 4270 1545 Balance -2799 -369 PT 15.0 SEC (12.0-15.0) 05/24/16 05:06 INR 1.18 (0.83-1.16) H 05/24/16 05:06 General: awake, alert, no acute distress, looks fatigued Eyes: EOMI, PERRL OP: Clear CV: RRR Resp: nonlabored respirations on NC Abd; Soft, NT Ext: no edema BLE Neuro: CN II-XII grossly intact, no asterixis ICD10 Worksheet Patient Problems: Problems Problem Status Onset Hypoxia Acute Pneumonia Acute
--- NOTE | 2016-05-28 10:51 | GOP ---
[f rep st] OPERATIVE REPORT DATE OF OPERATION: 05/27/2016 SURGEON: Manjit Dunbar MD DIRECTOR OF RESEARCH AND DEVELOPMENT: None. ANESTHESIA: MAC by Willie Bal MD PREOPERATIVE DIAGNOSIS: Renal failure. POSTOPERATIVE DIAGNOSIS: Renal failure. PROCEDURE PERFORMED: FINDINGS: Successful placement of 23 cm tunneled dialysis catheter into the right internal jugular vein using ultrasound and fluoroscopic guidance. SPECIMENS: None. ESTIMATED BLOOD LOSS: 5 cc. DESCRIPTION OF PROCEDURE: The patient was greeted in the preoperative suite. Consent was obtained by his prior to proceeding. He was then brought back to the operative suite and placed on the OR table in a supine position. After all anesthesia machines, including SCDs, were on and functioni ng, a [employer] time-out was performed. The patient was then gently sedated. His r ight neck was prepped and draped in the typical sterile fashion. He had a previous non-tunneled cat heter in place through which the wire was successfully threaded. The old catheter was removed and d iscarded. After successful removal, ultrasound guidance showed that the wire was successfully in th e right internal jugular vein. This was then serially dilated, and the peel-away sheath was success fully placed using fluoroscopic guidance. A tunnel site was then selected approximately 2 fingerbre adths below the clavicle on the ipsilateral side. The tunnel was then anesthetized with lidocaine, and the Palindrome catheter was successfully tunneled through it. It was then successfully placed t hrough the peel-away catheter into the internal jugular vein. Fluoroscopic guidance showed proper p lacement without any complication. The catheter was then attached to the skin with interrupted Prol poly sutures. The internal jugular stick site was closed with an interrupted Vicryl over which a Ze ri-Strip was placed. A Biopatch and sterile dressings were placed. The patient was then gently petrona kened and taken to the PACU in satisfactory condition. PROCEDURE PERFORMED: Tunneled Palindrome dialysis catheter placement. COUNTS: All counts were reported as correct x2. /[id number]/MODL
[2016-05-28] MEDS: FUROSEMIDE 80 MG in D5W 50 ML IV SCH (11:47)
--- NOTE | 2016-05-28 12:41 | PCMIDPN ---
Assessment/Plan: 81 Year old male with complex hospital course now with: # Multiple bouts of Sepsis secondary to polymicrobial peritonitis from duodenal perforation. Currently sepsis resolved and recently extubated 05/20. Now, transferred to medical floor. CT scan 2 days ago shows no further leak. Drainage from CHARLIE bulb 85cc yesterday down from 120cc and 95cc 2 days prior. Remains AF, leukocytosis persists, hemodynamics stable. --continue zosyn for coverage of enterococcus, lactobacillus, PsA and empiric micafungin for summer coverage --length of therapy difficult to assess because difficulty getting complete source control. 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 Denies specific pain. Wants water no diarrhea Objective: Vital Signs Temp Pulse Resp BP Pulse Ox 36.8 C 88 16 157/99 H 97 05/28/16 12:35 05/28/16 12:35 05/28/16 12:35 05/28/16 12:35 05/28/16 12:35 Laboratory Results 05/28/16 04:30 05/28/16 04:30 05/27/16 05/28/16 05/29/16 05:59 05:59 05:59 Intake Total 1471 1176 350 Output Total 4270 1545 Balance -2799 -369 350 - Physical Exam General Appearance: alert, no apparent distress, other (chr ill appearance) EENT: pale conjunctiva, NG Tube, No thrush Respiratory: coarse breath sounds, No accessory muscle use Neck: supple Cardiac/Chest: regular rate, rhythm Extremities: pedal edema (minimal) Abdomen: non-tender, soft, other (R CHARLIE drain with cloudy green material) Male Genitalia: amado Neuro/Psych: alert, oriented x 3, depressed affect - Line/s RUE PICC Lines: No drainage, No erythema other Lines: other (tunneled HD cath R subclavian), No drainage, No erythema ICD10 Worksheet Patient Problems: Problems Problem Status Onset Hypoxia Acute Pneumonia Acute
--- NOTE | 2016-05-28 16:43 | HOSPPROG ---
Hospitalist Progress Note Assessment/Plan: 81 yo M w recent complex hospital stay for ecoli bacteremia 2/2 choledocholithiasis and duodenal perforation s/p ERCP now here w MILLA, peritonitis # milla: oliguric but improving, 2/2 ATN, tunneled HD cath placed today, continue HD next scheduled for tuesday # Peritonitis/intra-abdominal abscess/duodenal perforatoin. s/p multiple I&Ds and perc drain placed by IR, persistent duodenal leak now s/p repair with omental patch. NGT still in place, CHARLIE drainage continues. Continue zosyn/ micafungin--abd cx with e. faecalis and lactobacillus, length of treatment unclear at this time. ID following. # Acute hypoxic respiratory failure.intubaed 05/20 and now stable post extubation , bilateral infiltrates and bilateral pleural effusions again noted on repeat CXR, pneumonitis likely 2/2 daptomycin with dapto now listed as allergy. Continue lasix/hd. s/p steroids. # anemia: multifactorial, trending # SIRS. Tachycardic/Tachypneic and ongoing leukocytosis though trending slightly down, continue monitoring and tx as above, repeat ct reasssuring, # Basilic vein superficial thrombosis. PICC removed, no systemic AC # Acute encephalopathy. continues to have slow responsiveness and increased somnolence which is not his usual baseline, some may be med related but continued post ativan. Does appear to be largely related to hypoactive delerium with some waxing/waning mentation. Thrombocytopenia. HIT panel neg, cont to monitor Drug rash. 2/2 levofloxacin Atrial fibrillation w/ RVR. Initially appeared to be SVT, rate controlled on dilt gtt, now appears to be AFib on tele (personally interpreted) Diet. TPN, volume reduced Prophylaxis. High risk patient, heparin subcu Code. Full code Disposition. Anticipated discharge uncertain Subjective: no significant overnight events, patient somnolent, no significant complaints Objective: Vital Signs Temp Pulse Resp BP Pulse Ox 37.2 C 81 12 145/84 H 95 05/28/16 16:27 05/28/16 16:27 05/28/16 16:27 05/28/16 16:27 05/28/16 16:27 Laboratory Results 05/28/16 04:30 05/28/16 04:30 05/27/16 05/28/16 05/29/16 05:59 05:59 05:59 Intake Total 1471 1176 350 Output Total 4270 1545 Balance -2799 -369 350 PT 15.0 SEC (12.0-15.0) 05/24/16 05:06 INR 1.18 (0.83-1.16) H 05/24/16 05:06 chronically ill appearing anicteric op clear rrr no mrg dec bs at bases normal wob soft diffuse ttp no cce warm dry well perfused oriented appropriate - Time Spent With Patient Time Spent with Patient: greater than 35 minutes Time Spent with Patient: Greater than 35 minutes spent on this patients care, greater than 50% of time spent counseling, educating, and coordinating care regarding the above mentioned plan. ICD10 Worksheet Patient Problems: Problems Problem Status Onset Hypoxia Acute Pneumonia Acute
[2016-05-28] MEDS: TPN 1 EA BAG IV SCH (22:17)
[2016-05-29] MEDS: INSULIN REGULAR, HUMAN 100 UNIT/1 ML VIAL HIGH SC SCH ×2 (02:34→06:11)
[2016-05-29] MEDS: HEPARIN 5,000 UNIT/0.5 ML SYR SC SCH ×3 (05:58→21:52)
[2016-05-29] MEDS: PIPERACILLIN/TAZO 2.25 GM/DEX 50 ML IV SCH ×3 (06:10→21:53)
[2016-05-29] MEDS: PANTOPRAZOLE SODIUM 40 MG in NS 100 ML IV SCH ×2 (07:45→20:10)
[2016-05-29] MEDS: CHLORHEXIDINE GLUCONATE 15 ML UDL PO SCH ×2 (07:45→19:40)
[2016-05-29 07:57] LABS: ADD DIFF? YES; ADD MORPH? NO; ADD SCAN? NO; ATYPICAL LYMPHOCYTE FLAG 20 (0-99); FRAGMENT RBC FLAG 20 (0-99); HEMATOCRIT 23.3 % (40.0-51.0); HEMOGLOBIN 7.6 g/dL (13.7-17.5); LEFT SHIFT FLG 60 (0-99); LIPEMIA HEMOLYSIS FLAG 80 (0-99); MEAN CELL HEMOGLOBIN 29.6 pg (27.9-34.1); MEAN CELL HEMOGLOBIN CONCENTR. 32.6 g/dL (32.4-36.7); MEAN CELL VOLUME 90.7 fL (81.5-99.8); MEAN PLATELET VOLUME 9.9 fL (8.7-11.7); PLATELET CLUMPS FLAG 10 (0-99); PLATELET COUNT 257 10^3/uL (150-400); RED BLOOD CELL COUNT 2.57 10^6/uL (4.40-6.38); RED CELL DISTRIBUTION WIDTH 17.9 % (11.5-15.2)
[2016-05-29 08:04] LABS: ALBUMIN 3.1 g/dL (3.5-5.0); ANION GAP 19 mEq/L (8-16); CALCIUM 9.1 mg/dL (8.5-10.4); CARBON DIOXIDE 21 mEq/l (22-31); CHLORIDE 107 mEq/L (97-110); GLOMERULAR FILTRATION RATE 9; GLUCOSE 93 mg/dL (70-100); POTASSIUM 3.4 mEq/L (3.5-5.2); SODIUM 147 mEq/L (134-144)
[2016-05-29 08:33] LABS: HYPOCHROMIA 1+; PLATELET ESTIMATE ADEQUATE (ADEQ)
[2016-05-29] MEDS: ACETAMINOPHEN 650 MG SUPP PR PRN (10:04)
--- NOTE | 2016-05-29 10:30 | HOSPPROG ---
Hospitalist Progress Note Assessment/Plan: 81 yo M w recent complex hospital stay for ecoli bacteremia 2/2 choledocholithiasis and duodenal perforation s/p ERCP now here w MILLA, peritonitis # MILLA - 2/2 ATN- tunneled HD cath placed - receiving HD - creatinine 6.0 this am remains oliguric and hyperphosphatemic - continue HD today - daily labs # Chronic Peritonitis/intra-abdominal abscess/duodenal perforation- s/p multiple I&Ds and perc drain placed by IR persistent duodenal leak now s/p repair with omental patch . CHARLIE drainage continues -abd cx with e. faecalis and lactobacillus - Continue zosyn/micafungin (length of treatment unclear at this time) - ID following. # Acute hypoxic respiratory failure-CXR (personally reviewed and interpreted) bilateral infiltrates and bilateral pleural effusions presumed pneumonitis 2/2 daptomycin (with dapto now listed as allergy) - s/p steroid course- oxygen saturations 94% on 2L - Continue lasix - continue HD # Anemia of chronic disease - multifactorial- H&H 10/03 - monitor closely # sepsis 2/2 intraabdominal source- resolving- Tachycardic/Tachypneic improved and ongoing leukocytosis 15 this am though trending slightly down - continue monitoring and tx as above # Basilic vein superficial thrombosis. PICC removed, no systemic AC # Acute encephalopathy- with persistent slow responsiveness and increased somnolence Some may be med related but does appear to be largely related to hypoactive delirium with some waxing/waning mentation. - cont supportive care - avoid centrally acting medications where able # Thrombocytopenia- transient now resolved - HIT panel neg # Drug rash- 2/2 levofloxacin - also new listed allergy # Atrial fibrillation w/ RVR- Initially rate controlled on dilt gtt- recently sinus rythmn # Diet. TPN, volume reduced #Prophylaxis. High risk patient, heparin subcu # Code. Full code # Disposition- > 2MN as pt remians acutely quite ill requiring IV antibiotics and HD I have discussed the case with RN in ICU - we will transfer to SDU 2/2 nursing needs Subjective: abdominal pain Objective: Vital Signs Temp Pulse Resp BP Pulse Ox 37.2 C 84 18 154/89 H 94 05/29/16 07:37 05/29/16 07:37 05/29/16 07:37 05/29/16 07:37 05/29/16 07:37 Laboratory Results 05/29/16 07:30 05/29/16 07:30 05/28/16 05/29/16 05/30/16 05:59 05:59 05:59 Intake Total 1176 350 200 Output Total 1545 1790 308 Balance -369 -1440 -108 PT 15.0 SEC (12.0-15.0) 05/24/16 05:06 INR 1.18 (0.83-1.16) H 05/24/16 05:06 - Physical Exam Constitutional: chronically ill appearing Eyes: anicteric sclera Ears, Nose, Mouth, Throat: dry mucous membranes Cardiovascular: regular rate and rhythym Respiratory: reduced air movement, No expiratory wheeze Gastrointestinal: normoactive bowel sounds, tenderness, No guarding, No rebound , No distension Genitourinary: no bladder fullness Skin: warm Musculoskeletal: No asymmetric calves Neurologic: No AAOx3 Psychiatric: depressed, flat affect Lymph, Heme, Immunologic: no cervical LAD ICD10 Worksheet Patient Problems: Problems Problem Status Onset Hypoxia Acute Pneumonia Acute
[2016-05-29] MEDS: MICAFUNGIN NA 100 MG in NS 100 ML IV SCH (13:00)
--- NOTE | 2016-05-29 13:43 | PCMIDPN ---
Assessment/Plan: Assessment/Plan: 1. Sepsis 04/15 to Peritonitis/abdominal abscess s/p CHARLIE drain placement -had ongoing leak but recent imaging from 05/25/16 showed no persistent leak. - CHARLIE drain placed on 05/09/16. -Currently on zosyn and micafungin for broad coverage. -Cx from recent drain: E. fecalis, and Lactobacillus. - Previous cx with E. fecalis and PsA from abd abscess (04/20/16). PsA intermediate to aztreonam -wbc noted -Ct abd from 05/20/16 reviewed. -blood cx from 05/04 and 05/20/16 ngtd 2. Bilateral infiltrates: - Dapto induced pneumonitis presumed. - BAL with eosinophils. -Off dapto now. s/p course of steroids from 05/20-05/24/16. - O2 at 2L. 3. Rash from levaquin 4. Multiple antibiotic reactions. 5. ARF: Meds -micafungin 100mg daily- 05/09/16---- -zosyn 2.25gm q8- 05/20/16---- s/p -dapto 540mg q48-05/09/16-05/19/16 -aztreonam 500mg q8-05/09/16-05/20/16 -flagyl 500mg q8- -05/20/16 Subjective: Afebrile. s/p HD today. Tired. Not interesting in talking much today. Dry cough. Objective: Vital Signs Temp Pulse Resp BP Pulse Ox 36.4 C 97 20 150/91 H 91 L 05/29/16 12:00 05/29/16 12:00 05/29/16 12:00 05/29/16 12:00 05/29/16 12:00 Laboratory Results 05/29/16 07:30 05/29/16 07:30 05/28/16 05/29/16 05/30/16 05:59 05:59 05:59 Intake Total 1176 350 200 Output Total 1545 1790 308 Balance -369 -1440 -108 - Physical Exam General Appearance: alert, no apparent distress Respiratory: coarse breath sounds Cardiac/Chest: regular rate, rhythm Extremities: No swelling Abdomen: normal bowel sounds, soft, distended, other (CHARLIE drain with purulent drainage) ICD10 Worksheet Patient Problems: Problems Problem Status Onset Hypoxia Acute Pneumonia Acute
[2016-05-29] MEDS: FUROSEMIDE 80 MG in D5W 50 ML IV SCH (13:47)
--- NOTE | 2016-05-29 13:50 | SOAPPROG ---
SOAP Progress Note Assessment/Plan: Assessment: MILLA: previously oliguric, likely ATN. UOP now increasing but poor clearance and not ready to come off HD yet - He had HD today, 1kg UF- next run ? Tuesday, will assess daily for need - Will continue Lasix at daily dosing to help with volume status. - Will continue to monitor renal function closely for recovery. - Avoid MOM, morphine, NSAIDs, contrast, aminoglycosides, fleets, and other nephrotoxins. Hypervolemia: markedly improved, will continue Lasix at daily dosing, UF with HD as tolerates. Anemia acute illness: no Epo, would transfuse if Hb < 7. Acute hypoxic resp failure- bilateral infiltrates, felt daptomycin related pneumonitis (BAL with eos) Peritonitis- drain in, ID following to guide antibiotics (E fecalis and Lactobacillus in recent cultures) -on TPN Mild hypernatremia: likely diuretic, TPN related. Adjust with HD, may need to add in a bit of free water if not improving- will see what am labs look like [facility] [phone] 05/29/16 14:40 Subjective: Had HD earlier today, 1kg UF, tolerated well. UOP picking up at 1750 cc but BUN/ Cr still rising between treatments. Confused, not answering my questions. Objective: Vital Signs Temp Pulse Resp BP Pulse Ox 36.4 C 97 20 150/91 H 91 L 05/29/16 12:00 05/29/16 12:00 05/29/16 12:00 05/29/16 12:00 05/29/16 12:00 Laboratory Results 05/29/16 07:30 05/29/16 07:30 05/28/16 05/29/16 05/30/16 05:59 05:59 05:59 Intake Total 1176 350 200 Output Total 1545 1790 308 Balance -369 -1440 -108 PT 15.0 SEC (12.0-15.0) 05/24/16 05:06 INR 1.18 (0.83-1.16) H 05/24/16 05:06 Physical Exam - Physical Exam General Appearance: no apparent distress, other (chronically ill) EENT: other (NG in place) Neck: supple, other (IJ cath) Respiratory: other (coarse bs bilat, poor resp effort) Cardiac/Chest: regular rate, rhythm, other (no rub) Abdomen: non-tender, soft, other (CHARLIE drain) Male Genitalia: other (amado in, yellow urine) Extremities: other (no edema) Neuro/Psych: other (confused) ICD10 Worksheet Patient Problems: Problems Problem Status Onset Hypoxia Acute Pneumonia Acute
[2016-05-29] MEDS ORDERED: HEPARIN 50,000 UNIT/10 ML VIAL ONE (20:00)
[2016-05-29] MEDS ORDERED: HYDROmorphONE/DILAUDID 1 MG/ML SYR IVP PRN (21:03)
[2016-05-29] MEDS: TPN 1 EA BAG IV SCH (21:53)
--- NOTE | 2016-05-29 23:22 | SOAPPROG ---
SOAP Progress Note Assessment/Plan: Assessment: 81 year old with perforated duodenal ulcer s/p pilar patch repair. Imaging with no evidence of fistula or leak. Persistent abscess on antibiotics. ARF getting dialysis. Encephalopathy. Transferred to SDU. No changes for today. NG output remains high and dark. Continue to flush J tube and CHARLIE drain 10 cc q shift. S: No complaints O: Lying in bed, appears comfortable NG with dark fluid in canister CHARLIE with purulent output Abdomen soft and non tender Plan: 05/29/16 23:20 Objective: Vital Signs Temp Pulse Resp BP Pulse Ox 36.6 C 81 14 137/81 H 98 05/29/16 22:00 05/29/16 22:00 05/29/16 22:00 05/29/16 22:00 05/29/16 22:00 Laboratory Results 05/29/16 07:30 05/29/16 07:30 05/28/16 05/29/16 05/30/16 05:59 05:59 05:59 Intake Total 8692 883 9864 Output Total 1545 1790 1808 Balance -369 -1440 -409 PT 15.0 SEC (12.0-15.0) 05/24/16 05:06 INR 1.18 (0.83-1.16) H 05/24/16 05:06 ICD10 Worksheet Patient Problems: Problems Problem Status Onset Hypoxia Acute Pneumonia Acute
[2016-05-30] MEDS: PIPERACILLIN/TAZO 2.25 GM/DEX 50 ML IV SCH ×3 (04:52→21:54)
[2016-05-30] MEDS: HEPARIN 5,000 UNIT/0.5 ML SYR SC SCH ×3 (04:53→21:54)
[2016-05-30 06:52] LABS: ALANINE AMINOTRANSFERASE 44 IU/L (21-72); ALBUMIN 3.1 g/dL (3.5-5.0); ALKALINE PHOSPHATASE 102 IU/L (38-126); ANION GAP 14 mEq/L (8-16); ASPARTATE AMINOTRANSFERASE 24 IU/L (17-59); CALCIUM 8.7 mg/dL (8.5-10.4); CARBON DIOXIDE 25 mEq/l (22-31); CHLORIDE 105 mEq/L (97-110); CREATININE 4.1 mg/dL (0.7-1.3); GLOMERULAR FILTRATION RATE 14; GLUCOSE 83 mg/dL (70-100); POTASSIUM 3.4 mEq/L (3.5-5.2); SODIUM 144 mEq/L (134-144); TOTAL PROTEIN 6.4 g/dL (6.3-8.2)
[2016-05-30] MEDS: MICAFUNGIN NA 100 MG in NS 100 ML IV SCH (08:17)
[2016-05-30] MEDS: CHLORHEXIDINE GLUCONATE 15 ML UDL PO SCH ×2 (08:23→21:54)
[2016-05-30] MEDS: FUROSEMIDE 80 MG in D5W 50 ML IV SCH (09:22)
[2016-05-30] MEDS: PANTOPRAZOLE SODIUM 40 MG in NS 100 ML IV SCH ×2 (11:34→21:53)
--- NOTE | 2016-05-30 12:00 | HOSPPROG ---
Hospitalist Progress Note Assessment/Plan: 81 yo M w recent complex hospital stay for ecoli bacteremia 2/2 choledocholithiasis and duodenal perforation s/p ERCP now here w MILLA, peritonitis # milla: oliguric but improving, 2/2 ATN, tunneled HD cath placed today, continue HD as needed--had today, UOP is improving but still not adequate, renal following # Peritonitis/intra-abdominal abscess/duodenal perforation. s/p multiple I&Ds and perc drain placed by IR, persistent duodenal leak now s/p repair with omental patch. NGT still in place, CHARLIE drainage continues. Continue zosyn/ micafungin--abd cx with e. faecalis and lactobacillus, length of treatment unclear at this time. ID following. # Acute hypoxic respiratory failure.intubaed 05/20 and now stable post extubation , bilateral infiltrates and bilateral pleural effusions again noted on repeat CXR, pneumonitis likely 2/2 daptomycin with dapto now listed as allergy. Continue lasix/hd. s/p steroids. # anemia: multifactorial, trending # Sepsis. ongoing leukocytosis but tachycardia/tachypnea improved, in setting of above, continue close monitoring # Basilic vein superficial thrombosis. PICC removed, no systemic AC # Acute encephalopathy. improving, largely related to hypoactive delerium with some waxing/waning mentation in the setting of prolonged hospitalization. Thrombocytopenia. HIT panel neg, cont to monitor Drug rash. 2/2 levofloxacin Atrial fibrillation w/ RVR. Initially appeared to be SVT, rate controlled on dilt gtt, more recently noted to be in SR Diet. TPN, volume reduced Prophylaxis. High risk patient, heparin subcu Code. Full code Disposition. Anticipated discharge uncertain Subjective: patient feeling a bit better this am, he is alert and responsive, no new complaints, contineus to feel very fatigued overall Objective: Vital Signs Temp Pulse Resp BP Pulse Ox 36.8 C 88 14 144/80 H 99 05/30/16 07:57 05/30/16 07:57 05/30/16 04:00 05/30/16 07:57 05/30/16 07:57 Laboratory Results 05/29/16 07:30 05/30/16 06:25 05/29/16 05/30/16 05/31/16 05:59 05:59 05:59 Intake Total 350 2399 Output Total 1790 3363 Balance -1440 -964 PT 15.0 SEC (12.0-15.0) 05/24/16 05:06 INR 1.18 (0.83-1.16) H 05/24/16 05:06 chronically ill appearing anicteric op clear rrr no mrg dec bs at bases normal wob soft diffuse ttp no cce warm dry well perfused oriented appropriate - Time Spent With Patient Time Spent with Patient: greater than 35 minutes Time Spent with Patient: Greater than 35 minutes spent on this patients care, greater than 50% of time spent counseling, educating, and coordinating care regarding the above mentioned plan. ICD10 Worksheet Patient Problems: Problems Problem Status Onset Hypoxia Acute Pneumonia Acute
--- NOTE | 2016-05-30 12:34 | PDINTPN ---
General Studies Program Chair Progress Note Assessment/Plan: Assessment/Plan: * Resp-stable * Diffuse Infiltrates-Some of these changes were likely related to volume overload and renal failure, daptomycin possibility -check CXR in am * Peritonitis, abdominal abscesses/infection. Per surgery and Infectious Disease. -CT abd/pelvis today * Acute renal failure. Improving. -On every other day hemodialysis. * Superficial DVT related to the right arm. On prophylactic heparin. * Nutrition: TPN. * Metabolic: Glucoses quite high secondary to TPN and steroids. On insulin by sliding scale and in TPN. Being adjusted. * DVT prophylaxis: Subcu heparin. * Dispo-consider LTAC Overall, slowly improving. Subjective: Comfortable Objective: Vital Signs Temp Pulse Resp BP Pulse Ox 36.8 C 88 14 144/80 H 99 05/30/16 07:57 05/30/16 07:57 05/30/16 04:00 05/30/16 07:57 05/30/16 07:57 Laboratory Results 05/29/16 07:30 05/30/16 06:25 05/29/16 05/30/16 05/31/16 05:59 05:59 05:59 Intake Total 350 2399 Output Total 1790 3363 Balance -1440 -964 PT 15.0 SEC (12.0-15.0) 05/24/16 05:06 INR 1.18 (0.83-1.16) H 05/24/16 05:06 Physical Exam - Physical Exam General Appearance: alert, no apparent distress EENT: PERRL/EOMI, normal ENT inspection Neck: non-tender, full range of motion Respiratory: crackles (few), No respiratory distress, No stridor, No wheezing Cardiac/Chest: normal peripheral pulses, regular rate, rhythm, systolic murmur Peripheral Pulses: 2+: carotid (R), carotid (L), femoral (R), femoral (L), dorsalis-pedis (R), dorsalis-pedis (L) Abdomen: normal bowel sounds, non-tender, soft Male Genitalia: deferred Rectal: deferred Skin: normal color, warm/dry ICD10 Worksheet Patient Problems: Problems Problem Status Onset Hypoxia Acute Pneumonia Acute
--- NOTE | 2016-05-30 12:55 | SOAPPROG ---
SOAP Progress Note Assessment/Plan: Assessment: MILLA: previously oliguric, likely ATN. UOP now increasing but poor clearance and not ready to come off HD yet - He had HD Tuesday with 1kg UF- UOP good on scheduled IV lasix, will see what lab trend is tomorrow to determine timing of next HD - continue Lasix at daily dosing to help with volume status. Hypervolemia: markedly improved, will continue Lasix at daily dosing, UF with HD as tolerates. Anemia acute illness: no Epo, would transfuse if Hb < 7. Acute hypoxic resp failure- bilateral infiltrates, felt daptomycin related pneumonitis (BAL with eos) with likely volume component Peritonitis- drain in, ID following to guide antibiotics (E fecalis and Lactobacillus in recent cultures) -on TPN, still NPO Mild hypernatremia: likely diuretic, TPN related. Better today I discussed with RN Elif Atkinson MD [facility] [phone] 05/30/16 13:55 Subjective: More perky and awake today. RN reports he sat in chair for 2 hours today. Had HD yesterday. UOP 1750cc (on lasix IV). Still NPO. I discussed with RN. Objective: Vital Signs Temp Pulse Resp BP Pulse Ox 36.8 C 88 14 144/80 H 99 05/30/16 07:57 05/30/16 07:57 05/30/16 04:00 05/30/16 07:57 05/30/16 07:57 Laboratory Results 05/29/16 07:30 05/30/16 06:25 05/29/16 05/30/16 05/31/16 05:59 05:59 05:59 Intake Total 350 2399 Output Total 1790 3363 Balance -1440 -964 PT 15.0 SEC (12.0-15.0) 05/24/16 05:06 INR 1.18 (0.83-1.16) H 05/24/16 05:06 Physical Exam - Physical Exam General Appearance: alert, no apparent distress, other (chronically ill) EENT: other (NG in) Neck: supple, other (RIJ HD cath temp) Respiratory: lungs clear Cardiac/Chest: regular rate, rhythm, other Abdomen: non-tender, other (CHARLIE drain brown colored output) Male Genitalia: other (amado in with yellow urine in bag) Skin: warm/dry Extremities: other (no edema) Neuro/Psych: alert, other (more alert and interactive today) ICD10 Worksheet Patient Problems: Problems Problem Status Onset Hypoxia Acute Pneumonia Acute
--- NOTE | 2016-05-30 15:27 | SOAPPROG ---
SOAP Progress Note Assessment/Plan: Assessment: 81 year old with perforated duodenal ulcer s/p pilar patch repair. Imaging with no evidence of fistula or leak. Persistent abscess on antibiotics. ARF getting dialysis. Encephalopathy. No changes for today. NG output remains 200 cc in the past 6 hours. Continue to flush J tube and CHARLIE drain 10 cc q shift. S: No complaints O: Sitting up in chair, appear sad today. Not speaking a lot NG with dark fluid in canister CHARLIE with purulent output - thinner than yesterday Abdomen soft and non tender Plan: 05/29/16 23:20 05/30/16 15:22 Objective: Vital Signs Temp Pulse Resp BP Pulse Ox 36.7 C 90 16 134/75 H 98 05/30/16 12:00 05/30/16 12:00 05/30/16 12:00 05/30/16 12:00 05/30/16 12:00 Laboratory Results 05/29/16 07:30 05/30/16 06:25 05/29/16 05/30/16 05/31/16 05:59 05:59 05:59 Intake Total 350 2399 Output Total 1790 3363 Balance -1440 -964 PT 15.0 SEC (12.0-15.0) 05/24/16 05:06 INR 1.18 (0.83-1.16) H 05/24/16 05:06 ICD10 Worksheet Patient Problems: Problems Problem Status Onset Hypoxia Acute Pneumonia Acute
[2016-05-30] MEDS: TPN 1 EA BAG IV SCH (21:54)
[2016-05-31 05:03] LABS: ALBUMIN 3.1 g/dL (3.5-5.0); ANION GAP 19 mEq/L (8-16); CARBON DIOXIDE 24 mEq/l (22-31); CHLORIDE 104 mEq/L (97-110); GLOMERULAR FILTRATION RATE 11; GLUCOSE 117 mg/dL (70-100); MAGNESIUM 1.4 mg/dL (1.6-2.3); POTASSIUM 3.3 mEq/L (3.5-5.2); SODIUM 147 mEq/L (134-144)
[2016-05-31] MEDS: PIPERACILLIN/TAZO 2.25 GM/DEX 50 ML IV SCH ×3 (05:26→20:12)
[2016-05-31] MEDS: HEPARIN 5,000 UNIT/0.5 ML SYR SC SCH ×2 (05:26→14:14)
[2016-05-31] MEDS: MICAFUNGIN NA 100 MG in NS 100 ML IV SCH (11:15)
[2016-05-31] MEDS: FUROSEMIDE 80 MG in D5W 50 ML IV SCH (11:34)
[2016-05-31] MEDS: PANTOPRAZOLE SODIUM 40 MG in NS 100 ML IV SCH ×2 (11:34→20:12)
--- NOTE | 2016-05-31 13:35 | SOAPPROG ---
SOAP Progress Note Assessment/Plan: Assessment/Plan 81yo M c duodenal perf s/p ex lap, repair and washout x2. Persistent leak - Tx to SDU, unclear reason as he has had no change in overall vitals or exam - Denies abd pain, CHARLIE slowing and has changed in character back to more purulent. NGT with 700cc/24hrs, will hopefully slow as would like to feed later this week - WBC persists around 15k, cont abx regimen 05/06/16 13:11 05/07/16 12:00 05/07/16 12:01 05/08/16 12:18 05/09/16 09:10 05/10/16 09:26 05/13/16 13:09 05/14/16 11:20 05/15/16 11:09 05/16/16 10:43 05/17/16 11:28 05/18/16 15:47 05/20/16 11:01 05/21/16 16:44 05/24/16 11:44 05/25/16 10:13 05/27/16 16:19 05/28/16 08:50 05/31/16 13:32 Subjective: Teary eyed this AM Objective: Vital Signs Temp Pulse Resp BP Pulse Ox 36.9 C 93 16 136/84 H 98 05/31/16 12:00 05/31/16 12:00 05/31/16 12:00 05/31/16 12:00 05/31/16 12:00 Microbiology 05/09/16 17:45 Fungal Culture - Final Abdomen - Aspirate Laboratory Results 05/29/16 07:30 05/31/16 04:05 05/30/16 05/31/16 06/01/16 05:59 05:59 05:59 Intake Total 4609 1546 Output Total 4602 1675 Balance -964 -1049 PT 15.0 SEC (12.0-15.0) 05/24/16 05:06 INR 1.18 (0.83-1.16) H 05/24/16 05:06 ICD10 Worksheet Patient Problems: Problems Problem Status Onset Hypoxia Acute Pneumonia Acute
--- NOTE | 2016-05-31 13:45 | PDINTPN ---
[employer] Progress Note Assessment/Plan: Assessment/plan: 81 M admitted 05/04/2016 after recent cholelithiasis and sepsis/bacteremia ( enterococcus and pseudomonas) and underwent ERCP complicated by duodenal perforation. He subsequently underwent surgical washout and repair, in addition to abx and was eventually discharged to SNF. He was re-admitted 05/04/16 with persistent bowel leak, an irregular fluid collection in the RUQ and MILLA/CKD. He was initially stable but developed increasing encephalopathy and MILLA and required HD as of 05/07/16. Ir attempted percutaneous drainage but imaging was impaired 2/2 contrast leak from previous SBF. He eventually underwent omental flap repair of persistent leak, but has continued to required HD. He was on the floor, but was recently transferred back to SDU for nursing staffing challenges. He is "new" to me today. * Peritonitis -this appears stable at this time, though his wbc remains elevytaed as of 05/29. Recheck CBC in AM. Abx include Zosyn/rustam * Encephalopathy- resolved. He was very appropriate to me this AM. * Rash- resolved * MILLA- Remains HD dependent but apparently tolerating well. * Respiratory failure with hypoxia. Was previously vented and notes suggest Dapto-associated lung toxicity. I believe he was treated with steroids at some point, but none currently. * PICC associated thrombosis in Right basilic vein- a superficial vessel- changed to left PICC 05/08. * Pleural effusion- resolved * FEN- * Afib with RVR- resolved, now in NSR Objective: Vital Signs Temp Pulse Resp BP Pulse Ox 36.9 C 93 16 136/84 H 98 05/31/16 12:00 05/31/16 12:00 05/31/16 12:00 05/31/16 12:00 05/31/16 12:00 Microbiology 05/09/16 17:45 Fungal Culture - Final Abdomen - Aspirate Laboratory Results 05/29/16 07:30 05/31/16 04:05 05/30/16 05/31/16 06/01/16 05:59 05:59 05:59 Intake Total 2399 1546 Output Total 3953 4445 Balance -964 -1049 PT 15.0 SEC (12.0-15.0) 05/24/16 05:06 INR 1.18 (0.83-1.16) H 05/24/16 05:06 Physical Exam - Physical Exam General Appearance: alert, no apparent distress EENT: PERRL/EOMI Neck: non-tender Respiratory: lungs clear, normal breath sounds, No respiratory distress Cardiac/Chest: normal peripheral pulses, regular rate, rhythm, No edema Abdomen: non-tender, soft, No distended, No guarding Skin: normal color, warm/dry Lymphatic: no adenopathy Extremities: No pedal edema, No calf tenderness Neuro/Psych: alert, normal mood/affect ICD10 Worksheet Patient Problems: Problems Problem Status Onset Hypoxia Acute Pneumonia Acute
[2016-05-31] MEDS ORDERED: MAGNESIUM SULF 2 GM/WATER 50 ML BAG IV ONE (15:29)
[2016-05-31] MEDS ORDERED: MAGNESIUM SULF 2 GM/WATER 50 ML IV ONE (16:00)
[2016-05-31] MEDS: POTASSIUM Cl (KCl) 50 ML IV SCH (16:49)
--- NOTE | 2016-05-31 16:51 | PCMIDPN ---
Assessment/Plan: Assessment: Continued abdominal fluid collection status post duodenal leak. CHARLIE drain continues to put out brownish yellow fluid. He appears to be more stable from a respiratory standpoint. His feels that his confusion is improved. Last dialysis was Tuesday. Awaiting to see future dialysis plans. Plan: 1. Continue both Zosyn and micafungin. 2. Follow laboratory values and respiratory status. Subjective: Patient is resting in his hospital chair in his room in the ICU. He is not very talkative. Although he is quite alert with his eyes. No fevers or chills. Denies any specific complaint. believes that he is much less confused. Objective: Zosyn # 11 Micafungin # 22 Vital Signs Temp Pulse Resp BP Pulse Ox 36.9 C 93 16 136/84 H 98 05/31/16 12:00 05/31/16 12:00 05/31/16 12:00 05/31/16 12:00 05/31/16 12:00 Microbiology 05/09/16 17:45 Fungal Culture - Final Abdomen - Aspirate Laboratory Results 05/29/16 07:30 05/31/16 04:05 05/30/16 05/31/16 06/01/16 05:59 05:59 05:59 Intake Total 2399 1546 Output Total 3363 9355 Balance -964 -1049 - Physical Exam General Appearance: WD/WN, alert, no apparent distress, thin, non-toxic, other ( Chronically ill) Respiratory: lungs clear, normal breath sounds, No respiratory distress Cardiac/Chest: regular rate, rhythm, No tachycardia Extremities: non-tender, normal inspection Abdomen: non-tender, soft, other (CHARLIE drain with tannish seropurulent exudate.) Skin: normal color, warm/dry, No rash Neuro/Psych: alert, normal mood/affect, oriented x 3 ICD10 Worksheet Patient Problems: Problems Problem Status Onset Hypoxia Acute Pneumonia Acute
--- NOTE | 2016-05-31 17:03 | SOAPPROG ---
SOAP Progress Note Assessment/Plan: Assessment: 1. arf: atn on sediment, great uo with lasix but bun/creat still rising rapidly between treatments. Hd tomorrow. Volume status much improved, may be able to back off lasix if continues to improve. 2. anemia: transfuse prn 3. Overload: essentially resolved, cont lasix to help manage this and minimize uf requirements on hd. Would try to keep I/O even from this point. Plan: 05/05/16 18:21 05/11/16 18:23 05/18/16 15:01 05/25/16 16:50 05/31/16 17:01 Subjective: Having dressings changed. More alert than when I last saw him. Objective: Vital Signs Temp Pulse Resp BP Pulse Ox 36.9 C 93 16 136/84 H 98 05/31/16 12:00 05/31/16 12:00 05/31/16 12:00 05/31/16 12:00 05/31/16 12:00 Microbiology 05/09/16 17:45 Fungal Culture - Final Abdomen - Aspirate Laboratory Results 05/29/16 07:30 05/31/16 04:05 05/30/16 05/31/16 06/01/16 05:59 05:59 05:59 Intake Total 2399 1546 Output Total 3363 2595 Balance -964 -1049 PT 15.0 SEC (12.0-15.0) 05/24/16 05:06 INR 1.18 (0.83-1.16) H 05/24/16 05:06 Physical Exam - Physical Exam General Appearance: no apparent distress, other (chronically-ill appearing) Extremities: swelling (none) ICD10 Worksheet Patient Problems: Problems Problem Status Onset Hypoxia Acute Pneumonia Acute
--- NOTE | 2016-05-31 20:06 | HOSPPROG ---
Hospitalist Progress Note Assessment/Plan: * Peritonitis with intra-abd abscess due to duodenal perf -duodenal leak s/p omental patch -s/p IR drain -NPO - TPN -Zosyn/micafungin * Ecoli sepsis due to choledocholithiasis -ERCP complicated by duodenal perf * ARF due to ATN -acute dialysis -volume overload - IV lasix per renal * Acute resp failure s/p extubation * Pneumonitis due to daptomycin * Metabolic encephalopathy -improved * Drug rash due to levaquin * Superficial thrombosis due to PICC - PICC removed * Afib - now NSR Subjective: no new complaints. Objective: Vital Signs Temp Pulse Resp BP Pulse Ox 36.9 C 82 18 126/69 H 100 05/31/16 12:00 05/31/16 16:00 05/31/16 16:00 05/31/16 16:00 05/31/16 16:00 Microbiology 05/09/16 17:45 Fungal Culture - Final Abdomen - Aspirate Laboratory Results 05/29/16 07:30 05/31/16 04:05 05/30/16 05/31/16 06/01/16 05:59 05:59 05:59 Intake Total 2399 1546 Output Total 3363 2595 1270 Balance -964 -1049 -1270 PT 15.0 SEC (12.0-15.0) 05/24/16 05:06 INR 1.18 (0.83-1.16) H 05/24/16 05:06 - Physical Exam Constitutional: no apparent distress, appears nourished, not in pain Cardiovascular: regular rate and rhythym, no murmur, rub, or gallop Respiratory: no respiratory distress, no rales or rhonchi, clear to auscultation Gastrointestinal: normoactive bowel sounds, soft, non-tender abdomen, no palpable masses Skin: no rashes or abrasions, no fluctuance, no induration Neurologic: AAOx3, sensation intact bilaterally Psychiatric: interacting appropriately, not anxious, not encephalopathic, thought process linear ICD10 Worksheet Patient Problems: Problems Problem Status Onset Hypoxia Acute Pneumonia Acute
[2016-05-31] MEDS: TPN 1 EA BAG IV SCH (20:12)
[2016-06-01] MEDS: HEPARIN 5,000 UNIT/0.5 ML SYR SC SCH ×4 (03:49→20:34)
[2016-06-01 04:38] LABS: ADD DIFF? YES; ADD MORPH? NO; ADD SCAN? NO; ATYPICAL LYMPHOCYTE FLAG 70 (0-99); FRAGMENT RBC FLAG 10 (0-99); HEMATOCRIT 24.2 % (40.0-51.0); HEMOGLOBIN 7.8 g/dL (13.7-17.5); LEFT SHIFT FLG 20 (0-99); LIPEMIA HEMOLYSIS FLAG 80 (0-99); MEAN CELL HEMOGLOBIN 30.6 pg (27.9-34.1); MEAN CELL HEMOGLOBIN CONCENTR. 32.2 g/dL (32.4-36.7); MEAN CELL VOLUME 94.9 fL (81.5-99.8); MEAN PLATELET VOLUME 10.4 fL (8.7-11.7); PLATELET CLUMPS FLAG 0 (0-99); PLATELET COUNT 250 10^3/uL (150-400); RED BLOOD CELL COUNT 2.55 10^6/uL (4.40-6.38)
[2016-06-01 05:05] LABS: ANION GAP 19 mEq/L (8-16); CALCIUM 9.2 mg/dL (8.5-10.4); CARBON DIOXIDE 22 mEq/l (22-31); CHLORIDE 107 mEq/L (97-110); CREATININE 5.6 mg/dL (0.7-1.3); GLOMERULAR FILTRATION RATE 10; GLUCOSE 128 mg/dL (70-100); POTASSIUM 3.5 mEq/L (3.5-5.2); SODIUM 148 mEq/L (134-144)
[2016-06-01 05:57] LABS: LARGE PLATELETS PRESENT; MICROCYTES 2+; PLATELET ESTIMATE ADEQUATE (ADEQ)
[2016-06-01] MEDS: PIPERACILLIN/TAZO 2.25 GM/DEX 50 ML IV SCH ×3 (10:59→20:34)
[2016-06-01] MEDS: PANTOPRAZOLE SODIUM 40 MG in NS 100 ML IV SCH ×2 (11:43→20:34)
[2016-06-01] MEDS: FUROSEMIDE 80 MG in D5W 50 ML IV SCH (11:44)
[2016-06-01] MEDS: MICAFUNGIN NA 100 MG in NS 100 ML IV SCH (11:44)
--- NOTE | 2016-06-01 11:47 | SOAPPROG ---
SOAP Progress Note Assessment/Plan: Assessment: 1. MILLA Likely oliguric ischemic ATN. Some UO, but poor clearances. Stable HD earlier today. Has tunneled catheter. Next HD 2. TPN Continues. 3. MS Answers some questions appropriately 5. Pulmonary Stable. Subjective: Awake Objective: Vital Signs Temp Pulse Resp BP Pulse Ox 36.9 C 105 H 19 118/80 98 06/01/16 08:00 06/01/16 08:00 06/01/16 08:00 06/01/16 08:00 06/01/16 08:00 Microbiology 05/09/16 17:45 Fungal Culture - Final Abdomen - Aspirate Laboratory Results 06/01/16 04:20 06/01/16 04:20 05/31/16 06/01/16 06/02/16 05:59 05:59 05:59 Intake Total 1546 1284 Output Total 2395 2040 Balance -849 -756 PT 15.0 SEC (12.0-15.0) 05/24/16 05:06 INR 1.18 (0.83-1.16) H 05/24/16 05:06 Physical Exam - Physical Exam General Appearance: cachetic Neck: other (catheter site good) Respiratory: decreased breath sounds Cardiac/Chest: irregularly irregular Abdomen: soft Extremities: normal inspection ICD10 Worksheet Patient Problems: Problems Problem Status Onset Hypoxia Acute Pneumonia Acute
[2016-06-01] MEDS ORDERED: HEPARIN 50,000 UNIT/10 ML VIAL MISC ONE (12:25)
--- NOTE | 2016-06-01 14:45 | SOAPPROG ---
SOAP Progress Note Assessment/Plan: Assessment/Plan 81yo M c duodenal perf s/p ex lap, repair and washout x2. Persistent leak - Still teary eyed today but better. - HD this AM - Abdomen remains soft, NGT with scant output. CHARLIE slowing, but still purulent. Will plan to d/c NGT today and start trial of CLD. Want to see if he leaks clinically, although I have multiple scans showing seal of the leak. - If tolerates CLD, would be ok with Tx to LTAC later this week 05/06/16 13:11 05/07/16 12:00 05/07/16 12:01 05/08/16 12:18 05/09/16 09:10 05/10/16 09:26 05/13/16 13:09 05/14/16 11:20 05/15/16 11:09 05/16/16 10:43 05/17/16 11:28 05/18/16 15:47 05/20/16 11:01 05/21/16 16:44 05/24/16 11:44 05/25/16 10:13 05/27/16 16:19 05/28/16 08:50 05/31/16 13:32 06/01/16 14:44 Objective: Vital Signs Temp Pulse Resp BP Pulse Ox 36.9 C 84 19 118/80 91 L 06/01/16 08:00 06/01/16 13:56 06/01/16 08:00 06/01/16 08:00 06/01/16 13:56 Microbiology 05/20/16 04:05 Mycobacterial Smear (TROY) - Final Bronchial [place] - Bilateral Lobes 05/09/16 17:45 Fungal Culture - Final Abdomen - Aspirate Laboratory Results 06/01/16 04:20 06/01/16 04:20 05/31/16 06/01/16 06/02/16 05:59 05:59 05:59 Intake Total 1546 1284 Output Total 1454 9525 395 Balance -849 -756 -395 PT 15.0 SEC (12.0-15.0) 05/24/16 05:06 INR 1.18 (0.83-1.16) H 05/24/16 05:06 ICD10 Worksheet Patient Problems: Problems Problem Status Onset Hypoxia Acute Pneumonia Acute
--- NOTE | 2016-06-01 18:33 | HOSPPROG ---
Hospitalist Progress Note Assessment/Plan: * Peritonitis with intra-abd abscess due to duodenal perf -duodenal leak s/p omental patch -s/p IR drain -NPO - TPN -Zosyn/micafungin -starting clears * Ecoli sepsis due to choledocholithiasis -ERCP complicated by duodenal perf * ARF due to ATN -acute dialysis -volume overload - IV lasix per renal * Acute resp failure s/p extubation * Pneumonitis due to daptomycin * Metabolic encephalopathy -improved * Drug rash due to levaquin * Superficial thrombosis due to PICC - PICC removed * Afib - now NSR Subjective: no new complaints. Objective: Vital Signs Temp Pulse Resp BP Pulse Ox 37.2 C 84 16 118/75 91 L 06/01/16 16:23 06/01/16 16:23 06/01/16 16:23 06/01/16 16:23 06/01/16 16:23 Microbiology 05/20/16 04:05 Mycobacterial Smear (TROY) - Final Bronchial [place] - Bilateral Lobes Laboratory Results 06/01/16 04:20 06/01/16 04:20 05/31/16 06/01/16 06/02/16 05:59 05:59 05:59 Intake Total 1546 1284 598 Output Total 2395 2040 395 Balance -849 -756 203 PT 15.0 SEC (12.0-15.0) 05/24/16 05:06 INR 1.18 (0.83-1.16) H 05/24/16 05:06 - Physical Exam Constitutional: no apparent distress, appears nourished, not in pain Cardiovascular: regular rate and rhythym, no murmur, rub, or gallop Respiratory: no respiratory distress, no rales or rhonchi, clear to auscultation Gastrointestinal: normoactive bowel sounds, soft, non-tender abdomen, no palpable masses Skin: no rashes or abrasions, no fluctuance, no induration Neurologic: AAOx3, sensation intact bilaterally Psychiatric: interacting appropriately, not anxious, not encephalopathic, thought process linear ICD10 Worksheet Patient Problems: Problems Problem Status Onset Hypoxia Acute Pneumonia Acute
[2016-06-01] MEDS: TPN 1 EA BAG IV SCH (21:05)
[2016-06-02] MEDS: PIPERACILLIN/TAZO 2.25 GM/DEX 50 ML IV SCH ×3 (05:16→21:33)
[2016-06-02] MEDS: HEPARIN 5,000 UNIT/0.5 ML SYR SC SCH ×3 (05:16→21:40)
[2016-06-02 05:51] LABS: ADD DIFF? YES; ADD MORPH? NO; ADD SCAN? NO; ATYPICAL LYMPHOCYTE FLAG 40 (0-99); FRAGMENT RBC FLAG 10 (0-99); HEMOGLOBIN 7.8 g/dL (13.7-17.5); LEFT SHIFT FLG 30 (0-99); LIPEMIA HEMOLYSIS FLAG 80 (0-99); MEAN CELL HEMOGLOBIN 30.5 pg (27.9-34.1); MEAN CELL HEMOGLOBIN CONCENTR. 32.5 g/dL (32.4-36.7); MEAN CELL VOLUME 93.8 fL (81.5-99.8); MEAN PLATELET VOLUME 10.4 fL (8.7-11.7); PLATELET CLUMPS FLAG 0 (0-99); PLATELET COUNT 242 10^3/uL (150-400); RED BLOOD CELL COUNT 2.56 10^6/uL (4.40-6.38); RED CELL DISTRIBUTION WIDTH 17.6 % (11.5-15.2)
[2016-06-02 06:20] LABS: HYPOCHROMIA 1+; LARGE PLATELETS PRESENT; MACROCYTES 1+; MICROCYTES 1+; PLATELET ESTIMATE ADEQUATE (ADEQ)
[2016-06-02] MEDS: PANTOPRAZOLE SODIUM 40 MG in NS 100 ML IV SCH ×2 (08:30→20:39)
[2016-06-02] MEDS: FUROSEMIDE 80 MG in D5W 50 ML IV SCH (08:30)
[2016-06-02] MEDS: MICAFUNGIN NA 100 MG in NS 100 ML IV SCH (08:35)
--- NOTE | 2016-06-02 10:53 | SOAPPROG ---
SOAP Progress Note Assessment/Plan: Assessment: 81yo male s/p repair/washout of duodenal ulcer, readmitted for acute renal failure, intraabdominal abscess s/p IR drainage during this stay. Acute respiratory failure. Recently started on clears, denies significant pain, seems more alert today PE alert, on room air appears comfortable Chest CTA B/L Abdomen very soft to palpation, IR drain in place with 144cc/24h (increase from 80) Lower ext no edema Plan: will continue to monitor drain output, see if any increase after clears started will discuss with Dr Dunbar 05/05/16 13:49 05/19/16 12:49 06/02/16 10:51 Objective: Vital Signs Temp Pulse Resp BP Pulse Ox 36.9 C 91 20 152/89 H 93 06/02/16 08:00 06/02/16 08:00 06/02/16 08:00 06/02/16 08:00 06/02/16 08:00 Microbiology 06/02/16 01:00 Gastrointestinal Tract Panel (PCR) - Final Stool No Organism Detected 05/20/16 04:05 Mycobacterial Smear (TROY) - Final Bronchial [place] - Bilateral Lobes Laboratory Results 06/02/16 05:20 06/01/16 04:20 06/01/16 06/02/16 06/03/16 05:59 05:59 05:59 Intake Total 1284 923 Output Total 2040 700 Balance -756 223 PT 15.0 SEC (12.0-15.0) 05/24/16 05:06 INR 1.18 (0.83-1.16) H 05/24/16 05:06 ICD10 Worksheet Patient Problems: Problems Problem Status Onset Hypoxia Acute Pneumonia Acute
--- NOTE | 2016-06-02 12:26 | WOCRNPDOC ---
WOCRN Advanced Assessment Note - Skin Integrity Problem, Advanced Assess Scrotum Dressing Type: Open to Air Exudate Amount: None Exudate Characteristic(s): None Integumentary Issue Intervention: Barrier Cream Applied (Dimethicone, applied by nursing) Megan Wound Tissue: Blanching, Erythema Skin Integrity Problem Comment: Consulted because nursing was concerned about increasing redness to buttocks and scrotum. No breakdown noted, and skin is intact. Blanching erythema throughout gluteal cleft and extending down to scrotum. Advised continuing w/ dimethicone cream per order. In addition, order placed for pressure-relieving cushion in chair as a precaution. Buttock Exudate Amount: None Exudate Characteristic(s): None Integumentary Issue Intervention: Barrier Cream Applied (dimethicone, by nursing ) Megan Wound Tissue: Blanching, Erythema, Intact Megan Wound Swelling: None Skin Integrity Problem Comment: Blanching erythema noted, w/ intact skin. Continue w/ dimethicone.
--- NOTE | 2016-06-02 15:22 | PCMIDPN ---
Assessment/Plan: Assessment: Continued abdominal fluid collection status post duodenal leak. CHARLIE drain continues to put out brownish yellow fluid. He appears to be more stable from a respiratory standpoint. Dialysis needs continue intermittently. Plan: 1. Continue both Zosyn and micafungin. 2. Follow laboratory values, respiratory status and clinical course. 06/02/16 16:47 Subjective: Patient is more verbal and communicative today. Still quite weakened. No new complaints particularly. Objective: Zosyn # 13 Micafungin # 24 Vital Signs Temp Pulse Resp BP Pulse Ox 36.9 C 91 20 152/89 H 93 06/02/16 08:00 06/02/16 08:00 06/02/16 08:00 06/02/16 08:00 06/02/16 08:00 Microbiology 06/02/16 01:00 Gastrointestinal Tract Panel (PCR) - Final Stool No Organism Detected 05/20/16 04:05 Mycobacterial Smear (TROY) - Final Bronchial [place] - Bilateral Lobes Laboratory Results 06/02/16 05:20 06/01/16 04:20 06/01/16 06/02/16 06/03/16 05:59 05:59 05:59 Intake Total 1284 923 Output Total 2040 700 10 Balance -756 223 -10 - Physical Exam General Appearance: WD/WN, alert, no apparent distress, non-toxic Respiratory: lungs clear, normal breath sounds, No respiratory distress Cardiac/Chest: regular rate, rhythm, No tachycardia Skin: normal color, warm/dry, No rash Neuro/Psych: alert, normal mood/affect, oriented x 3 ICD10 Worksheet Patient Problems: Problems Problem Status Onset Hypoxia Acute Pneumonia Acute
--- NOTE | 2016-06-02 15:44 | HOSPPROG ---
Hospitalist Progress Note Assessment/Plan: * Peritonitis with intra-abd abscess due to duodenal perf -duodenal leak s/p omental patch -s/p IR drain - CHARLIE output decreasing -NPO - TPN - now starting clears -Zosyn/micafungin * Ecoli sepsis due to choledocholithiasis -ERCP complicated by duodenal perf * ARF due to ATN -acute dialysis -volume overload - IV lasix per renal * Acute resp failure s/p extubation * Pneumonitis due to daptomycin * Metabolic encephalopathy -improved * Drug rash due to levaquin * Superficial thrombosis due to PICC - PICC removed * Afib - now NSR Possible discharge to LTAC Subjective: no new complaints. Objective: Vital Signs Temp Pulse Resp BP Pulse Ox 36.9 C 91 20 152/89 H 93 06/02/16 08:00 06/02/16 08:00 06/02/16 08:00 06/02/16 08:00 06/02/16 08:00 Microbiology 06/02/16 01:00 Gastrointestinal Tract Panel (PCR) - Final Stool No Organism Detected 05/20/16 04:05 Mycobacterial Smear (TROY) - Final Bronchial [place] - Bilateral Lobes Laboratory Results 06/02/16 05:20 06/01/16 04:20 06/01/16 06/02/16 06/03/16 05:59 05:59 05:59 Intake Total 1284 923 Output Total 2040 700 10 Balance -756 223 -10 PT 15.0 SEC (12.0-15.0) 05/24/16 05:06 INR 1.18 (0.83-1.16) H 05/24/16 05:06 - Physical Exam Constitutional: no apparent distress, appears nourished, not in pain Cardiovascular: regular rate and rhythym, no murmur, rub, or gallop Respiratory: no respiratory distress, no rales or rhonchi, clear to auscultation Gastrointestinal: normoactive bowel sounds, soft, non-tender abdomen, no palpable masses Skin: no rashes or abrasions, no fluctuance, no induration Neurologic: AAOx3, sensation intact bilaterally Psychiatric: interacting appropriately, flat affect, No encephalopathic, No agitated ICD10 Worksheet Patient Problems: Problems Problem Status Onset Hypoxia Acute Pneumonia Acute
--- NOTE | 2016-06-02 17:53 | SOAPPROG ---
KELLIE Progress Note Assessment/Plan: Assessment: MILLA CKD 3 Plan: HD tomorrow continue therapies follow lytes vol and renal function, UOP picking up, hopefully renal recovery is on the way 06/02/16 17:51 Objective: Vital Signs Temp Pulse Resp BP Pulse Ox 36.8 C 96 16 146/86 H 93 06/02/16 16:00 06/02/16 16:00 06/02/16 16:00 06/02/16 16:00 06/02/16 16:00 Microbiology 06/02/16 01:00 Gastrointestinal Tract Panel (PCR) - Final Stool No Organism Detected 05/20/16 04:05 Mycobacterial Smear (TROY) - Final Bronchial [place] - Bilateral Lobes Laboratory Results 06/02/16 05:20 06/01/16 04:20 06/01/16 06/02/16 06/03/16 05:59 05:59 05:59 Intake Total 7778 626 2843 Output Total 2040 700 10 Balance -167 918 9397 PT 15.0 SEC (12.0-15.0) 05/24/16 05:06 INR 1.18 (0.83-1.16) H 05/24/16 05:06 Physical Exam - Physical Exam General Appearance: alert Respiratory: No rhonchi, No wheezing Cardiac/Chest: regular rate, rhythm, edema, No gallop, No friction rub Abdomen: non-tender, soft Extremities: pedal edema Neuro/Psych: alert, normal mood/affect, oriented x 3 ICD10 Worksheet Patient Problems: Problems Problem Status Onset Hypoxia Acute Pneumonia Acute
[2016-06-02] MEDS: TPN 1 EA BAG IV SCH (20:41)
[2016-06-02] MEDS: ALTEPLASE 2 MG VIAL IVP PRN (20:50)
[2016-06-03] MEDS: PIPERACILLIN/TAZO 2.25 GM/DEX 50 ML IV SCH ×3 (05:34→21:05)
[2016-06-03] MEDS: HEPARIN 5,000 UNIT/0.5 ML SYR SC SCH ×3 (05:34→21:00)
[2016-06-03 06:26] LABS: ALBUMIN 3.3 g/dL (3.5-5.0); ANION GAP 17 mEq/L (8-16); CALCIUM 9.2 mg/dL (8.5-10.4); CARBON DIOXIDE 22 mEq/l (22-31); CHLORIDE 100 mEq/L (97-110); CREATININE 4.4 mg/dL (0.7-1.3); GLOMERULAR FILTRATION RATE 13; GLUCOSE 96 mg/dL (70-100); POTASSIUM 3.6 mEq/L (3.5-5.2); SODIUM 139 mEq/L (134-144)
[2016-06-03 06:30] LABS: ADD DIFF? YES; ADD MORPH? NO; ADD SCAN? NO; ATYPICAL LYMPHOCYTE FLAG 30 (0-99); FRAGMENT RBC FLAG 20 (0-99); HEMATOCRIT 25.6 % (40.0-51.0); HEMOGLOBIN 8.4 g/dL (13.7-17.5); LEFT SHIFT FLG 20 (0-99); LIPEMIA HEMOLYSIS FLAG 80 (0-99); MEAN CELL HEMOGLOBIN 31.1 pg (27.9-34.1); MEAN CELL HEMOGLOBIN CONCENTR. 32.8 g/dL (32.4-36.7); MEAN CELL VOLUME 94.8 fL (81.5-99.8); MEAN PLATELET VOLUME 10.7 fL (8.7-11.7); PLATELET CLUMPS FLAG 0 (0-99); PLATELET COUNT 263 10^3/uL (150-400); RED CELL DISTRIBUTION WIDTH 17.8 % (11.5-15.2)
[2016-06-03 06:57] LABS: PLATELET ESTIMATE ADEQUATE (ADEQ); POLYCHROMASIA 1+
[2016-06-03] MEDS ORDERED: SODIUM CITRATE 4% 5 ML in SYRINGE 0 ML DIAL PRN (08:00)
[2016-06-03] MEDS: EPOETIN ALFA 10,000 UNIT/ML VIAL SC SCH (08:54)
--- NOTE | 2016-06-03 10:06 | SOAPPROG ---
SOAP Progress Note Assessment/Plan: Assessment:Plan: ARF-increased urine output -had Hd yesterday and today -volume status appears better -will follow for recovery Access-tunneled catheter Dispo-pending 06/03/16 10:04 Subjective: stable on dialysis Objective: Vital Signs Temp Pulse Resp BP Pulse Ox 36.8 C 88 16 137/86 H 92 06/03/16 07:38 06/03/16 07:38 06/03/16 07:38 06/03/16 07:38 06/03/16 07:38 Microbiology 06/02/16 01:00 Gastrointestinal Tract Panel (PCR) - Final Stool No Organism Detected Laboratory Results 06/03/16 04:19 06/03/16 04:19 06/02/16 06/03/16 06/04/16 05:59 05:59 05:59 Intake Total 923 2298 Output Total 700 355 Balance 223 1943 PT 15.0 SEC (12.0-15.0) 05/24/16 05:06 INR 1.18 (0.83-1.16) H 05/24/16 05:06 Physical Exam - Physical Exam General Appearance: alert, no apparent distress, thin EENT: normal ENT inspection Neck: normal inspection Respiratory: decreased breath sounds (1/3 up bilaterally) Cardiac/Chest: regular rate, rhythm Abdomen: normal bowel sounds Extremities: No swelling ICD10 Worksheet Patient Problems: Problems Problem Status Onset Hypoxia Acute Pneumonia Acute
[2016-06-03] MEDS: PANTOPRAZOLE SODIUM 40 MG in NS 100 ML IV SCH (12:20)
[2016-06-03] MEDS: MICAFUNGIN NA 100 MG in NS 100 ML IV SCH (13:39)
--- NOTE | 2016-06-03 14:09 | SOAPPROG ---
SOAP Progress Note Assessment/Plan: Assessment/Plan 81yo M c duodenal perf s/p ex lap, repair and washout x2. Persistent leak - Continues to be depressed but excited at the fact he is improving. - HD this AM, well tolerated - Still very deconditioned, tolerated some bedside therapy earlier today and is anxious to do more - Abdomen remains soft and ND, NT. CHARLIE with persistent purulent drainage, but has been minimal and does not appear to be leaking - Looking for LTAC placement which I agree with as his abdominal exam and drainage are reassuring. Would plan to d/c on clears and f/u with me to plan swallow and diet advancement. 05/06/16 13:11 05/07/16 12:00 05/07/16 12:01 05/08/16 12:18 05/09/16 09:10 05/10/16 09:26 05/13/16 13:09 05/14/16 11:20 05/15/16 11:09 05/16/16 10:43 05/17/16 11:28 05/18/16 15:47 05/20/16 11:01 05/21/16 16:44 05/24/16 11:44 05/25/16 10:13 05/27/16 16:19 05/28/16 08:50 05/31/16 13:32 06/01/16 14:44 06/03/16 14:06 Objective: Vital Signs Temp Pulse Resp BP Pulse Ox 36.9 C 98 16 120/87 H 93 06/03/16 12:36 06/03/16 12:36 06/03/16 12:36 06/03/16 12:36 06/03/16 12:36 Microbiology 06/02/16 01:00 Gastrointestinal Tract Panel (PCR) - Final Stool No Organism Detected Laboratory Results 06/03/16 04:19 06/03/16 04:19 06/02/16 06/03/16 06/04/16 05:59 05:59 05:59 Intake Total 923 2298 Output Total 700 355 Balance 223 1943 PT 15.0 SEC (12.0-15.0) 05/24/16 05:06 INR 1.18 (0.83-1.16) H 05/24/16 05:06 ICD10 Worksheet Patient Problems: Problems Problem Status Onset Hypoxia Acute Pneumonia Acute
[2016-06-03] MEDS: FUROSEMIDE 80 MG in D5W 50 ML IV SCH (14:43)
--- NOTE | 2016-06-03 17:03 | HOSPPROG ---
Hospitalist Progress Note Assessment/Plan: * Peritonitis with intra-abd abscess due to duodenal perf -duodenal leak s/p omental patch -s/p IR drain - CHARLIE output decreasing -NPO - TPN - now starting clears -Zosyn/micafungin * Ecoli sepsis due to choledocholithiasis -ERCP complicated by duodenal perf * ARF due to ATN -acute dialysis * Acute resp failure s/p extubation * Pneumonitis due to daptomycin * Metabolic encephalopathy -improved * Drug rash due to levaquin * Superficial thrombosis due to PICC - PICC removed * Afib - now NSR Possible discharge to LTAC tomorrow Subjective: No new complaints. Objective: Vital Signs Temp Pulse Resp BP Pulse Ox 36.9 C 93 16 135/81 H 93 06/03/16 16:00 06/03/16 16:00 06/03/16 16:00 06/03/16 16:00 06/03/16 16:00 Laboratory Results 06/03/16 04:19 06/03/16 04:19 06/02/16 06/03/16 06/04/16 05:59 05:59 05:59 Intake Total 923 2298 Output Total 700 355 Balance 223 1943 PT 15.0 SEC (12.0-15.0) 05/24/16 05:06 INR 1.18 (0.83-1.16) H 05/24/16 05:06 - Physical Exam Constitutional: no apparent distress, appears nourished, not in pain Cardiovascular: regular rate and rhythym, no murmur, rub, or gallop Respiratory: no respiratory distress, no rales or rhonchi, clear to auscultation Gastrointestinal: normoactive bowel sounds, soft, non-tender abdomen, no palpable masses Skin: no rashes or abrasions, no fluctuance, no induration Neurologic: AAOx3, sensation intact bilaterally Psychiatric: interacting appropriately, not anxious, not encephalopathic, thought process linear, flat affect ICD10 Worksheet Patient Problems: Problems Problem Status Onset Hypoxia Acute Pneumonia Acute
--- NOTE | 2016-06-03 18:28 | PCMIDPN ---
Assessment/Plan: Assessment: Continued abdominal fluid collection status post duodenal leak. CHARLIE drain continues to put out brownish yellow fluid. He appears to be more stable from a respiratory standpoint. Dialysis occurred this AM. Need for this due to ARF continues. Plan: 1. Continue both Zosyn and micafungin. 2. Follow laboratory values, respiratory status and clinical course. Subjective: Patient sitting up in his chair - recently returned from hemodialysis. No new complaints but he says that he feels wiped out. No fevers. Objective: Zosyn #14 micafungin #25 Vital Signs Temp Pulse Resp BP Pulse Ox 36.9 C 93 16 135/81 H 93 06/03/16 16:00 06/03/16 16:00 06/03/16 16:00 06/03/16 16:00 06/03/16 16:00 Laboratory Results 06/03/16 04:19 06/03/16 04:19 06/02/16 06/03/16 06/04/16 05:59 05:59 05:59 Intake Total 923 2298 Output Total 700 355 Balance 223 1943 - Physical Exam General Appearance: WD/WN, alert, no apparent distress, thin, non-toxic Respiratory: lungs clear, normal breath sounds, No respiratory distress Cardiac/Chest: regular rate, rhythm, No tachycardia Extremities: non-tender, normal inspection Skin: normal color, warm/dry, No rash Neuro/Psych: alert, normal mood/affect, oriented x 3 ICD10 Worksheet Patient Problems: Problems Problem Status Onset Hypoxia Acute Pneumonia Acute
[2016-06-03] MEDS: PANTOPRAZOLE SODIUM 40 MG TAB PO SCH (20:58)
[2016-06-03] MEDS: TPN 1 EA BAG IV SCH (20:59)
[2016-06-04] MEDS: PIPERACILLIN/TAZO 2.25 GM/DEX 50 ML IV SCH ×3 (05:18→21:18)
[2016-06-04] MEDS: HEPARIN 5,000 UNIT/0.5 ML SYR SC SCH ×3 (05:18→21:18)
[2016-06-04 06:12] LABS: % IMMATURE GRANULYOCYTES 2.4 % (0.0-1.1); ABSOLUTE IMMATURE GRANULOCYTES 0.29 10^3/uL (0.00-0.10); ADD DIFF? NO; ADD MORPH? NO; ADD SCAN? NO; ATYPICAL LYMPHOCYTE FLAG 0 (0-99); FRAGMENT RBC FLAG 20 (0-99); HEMATOCRIT 23.3 % (40.0-51.0); HEMOGLOBIN 7.9 g/dL (13.7-17.5); LEFT SHIFT FLG 20 (0-99); LIPEMIA HEMOLYSIS FLAG 90 (0-99); MEAN CELL HEMOGLOBIN 33.1 pg (27.9-34.1); MEAN CELL HEMOGLOBIN CONCENTR. 33.9 g/dL (32.4-36.7); MEAN CELL VOLUME 97.5 fL (81.5-99.8); MEAN PLATELET VOLUME 10.3 fL (8.7-11.7); PLATELET CLUMPS FLAG 10 (0-99); PLATELET COUNT 195 10^3/uL (150-400); RED BLOOD CELL COUNT 2.39 10^6/uL (4.40-6.38); RED CELL DISTRIBUTION WIDTH 17.9 % (11.5-15.2)
[2016-06-04 09:14] LABS: ALBUMIN 3.6 g/dL (3.5-5.0); ANION GAP 17 mEq/L (8-16); CALCIUM 9.7 mg/dL (8.5-10.4); CARBON DIOXIDE 23 mEq/l (22-31); CHLORIDE 99 mEq/L (97-110); CREATININE 3.3 mg/dL (0.7-1.3); GLOMERULAR FILTRATION RATE 18; GLUCOSE 91 mg/dL (70-100); POTASSIUM 3.9 mEq/L (3.5-5.2); SODIUM 139 mEq/L (134-144)
[2016-06-04] MEDS: PANTOPRAZOLE SODIUM 40 MG TAB PO SCH ×2 (09:16→21:18)
[2016-06-04] MEDS: MICAFUNGIN NA 100 MG in NS 100 ML IV SCH (09:17)
[2016-06-04] MEDS: ONDANSETRON 4 MG/2 ML VIAL IVP PRN (10:34)
--- NOTE | 2016-06-04 12:08 | SOAPPROG ---
SOAP Progress Note Assessment/Plan: Assessment/Plan: MILLA: previously oliguric, likely ATN. Pt now with markedly improved UOP even without Lasix now, may be starting to recover. - Will plan on HD Tuesday if needed, but will continue to assess for renal recovery. - Avoid MOM, morphine, NSAIDs, contrast, aminoglycosides, fleets, and other nephrotoxins. Hypervolemia: markedly improved, not on Lasix, will continue to monitor. Anemia: pt getting epo. Subjective: No acute events overnight. Pt make 1600ml urine in past 24 hours, which is encouraging. Objective: Vital Signs Temp Pulse Resp BP Pulse Ox 36.8 C 106 H 18 123/81 H 93 06/04/16 11:14 06/04/16 11:14 06/04/16 11:14 06/04/16 11:14 06/04/16 11:14 Laboratory Results 06/04/16 06:02 06/04/16 Unknown 06/03/16 06/04/16 06/05/16 05:59 05:59 05:59 Intake Total 2298 1446 Output Total 355 1668 Balance 1943 -222 PT 15.0 SEC (12.0-15.0) 05/24/16 05:06 INR 1.18 (0.83-1.16) H 05/24/16 05:06 General: alert and oriented, no acute distress Eyes: EOMI, PERRL OP: Clear CV: RRR Resp: nonlabored respirations Abd; Soft, NT Ext: no edema BLE Neuro: CN II-XII grossly intact Psych: flat affect, minimally interactive ICD10 Worksheet Patient Problems: Problems Problem Status Onset Hypoxia Acute Pneumonia Acute
--- NOTE | 2016-06-04 13:55 | PCMIDPN ---
Assessment/Plan: 81 Year old male with complex hospital course now with: # Multiple bouts of Sepsis secondary to polymicrobial peritonitis from duodenal perforation. Currently sepsis resolved. CHARLIE putting bout about 40cc/day --continue zosyn for coverage of enterococcus, lactobacillus, PsA and empiric micafungin for summer coverage --Will try to come up with length of therapy soon # ARF - continued HD per nephrology, may be able to wean HD soon # Dapto pneumonitis, +eos in BAL s/p steroids --dapto added to allergy list meds zosyn 2.25gm IV q8h, 05/20, #15 micafungin , #26 TPN Microbiology 05/04 blood cultures (2): Neg 05/08 C diff negative 05/20 BAL neg 05/20 blood cx (2) neg Case discussed with Dr Dunbar and Dr. Alejandro Subjective: liquid tea-colored stool at time of my exam walked in hallway today holding LTAC dc today because weaning off HD Objective: Vital Signs Temp Pulse Resp BP Pulse Ox 36.8 C 106 H 18 123/81 H 93 06/04/16 11:14 06/04/16 11:14 06/04/16 11:14 06/04/16 11:14 06/04/16 11:14 Laboratory Results 06/04/16 06:02 06/04/16 Unknown 06/03/16 06/04/16 06/05/16 05:59 05:59 05:59 Intake Total 2298 1446 Output Total 355 1668 350 Balance 1943 -222 -350 Gen: appear more vigorous than my exam 1 week ago o/p MMM CV: tachy Chest: clear, shallow inspirations Abd: R CHARLIE drain with purulent material, soft NT Ext: no edema RUE PICC ICD10 Worksheet Patient Problems: Problems Problem Status Onset Hypoxia Acute Pneumonia Acute
--- NOTE | 2016-06-04 16:20 | HOSPPROG ---
Hospitalist Progress Note Assessment/Plan: * Peritonitis with recurrent sepsis -abdominal abscess -s/p IR drain - CHARLIE still with purulent drainage - but decreasing -NPO - TPN - now starting clears -Zosyn/micafungin * Ecoli sepsis due to choledocholithiasis -ERCP complicated by duodenal perf/leak s/p omental patch * ARF due to ATN -acute dialysis -kidneys improving - anticipate off dialysis in next few days * Acute resp failure s/p extubation * Pneumonitis due to daptomycin * Metabolic encephalopathy -improved * Drug rash due to levaquin * Superficial thrombosis due to PICC - PICC removed * Afib - now NSR Subjective: no complaints. Objective: Vital Signs Temp Pulse Resp BP Pulse Ox 36.6 C 104 H 16 114/81 H 95 06/04/16 15:21 06/04/16 15:21 06/04/16 15:21 06/04/16 15:21 06/04/16 15:21 Laboratory Results 06/04/16 06:02 06/04/16 Unknown 06/03/16 06/04/16 06/05/16 05:59 05:59 05:59 Intake Total 2298 1446 Output Total 355 1668 350 Balance 1943 -222 -350 PT 15.0 SEC (12.0-15.0) 05/24/16 05:06 INR 1.18 (0.83-1.16) H 05/24/16 05:06 Case d/w Dr. Tejada, Dr. Simpson and Dr Keya Dunbar - no LTAC - expect kidneys to recover soon ABD CT - no change, no residual abscess - Physical Exam Constitutional: no apparent distress, appears nourished, not in pain Cardiovascular: regular rate and rhythym, no murmur, rub, or gallop Respiratory: no respiratory distress, no rales or rhonchi, clear to auscultation Gastrointestinal: normoactive bowel sounds, soft, non-tender abdomen, no palpable masses Skin: no rashes or abrasions, no fluctuance, no induration Neurologic: AAOx3, sensation intact bilaterally Psychiatric: interacting appropriately, not anxious, not encephalopathic, thought process linear ICD10 Worksheet Patient Problems: Problems Problem Status Onset Hypoxia Acute Pneumonia Acute
[2016-06-04] MEDS: TPN 1 EA BAG IV SCH (21:18)
[2016-06-05] MEDS: PIPERACILLIN/TAZO 2.25 GM/DEX 50 ML IV SCH ×3 (04:30→21:34)
[2016-06-05] MEDS: HEPARIN 5,000 UNIT/0.5 ML SYR SC SCH ×3 (04:30→21:34)
[2016-06-05 05:43] LABS: ABSOLUTE IMMATURE GRANULOCYTES 0.24 10^3/uL (0.00-0.10); ADD DIFF? NO; ADD MORPH? NO; ADD SCAN? NO; ATYPICAL LYMPHOCYTE FLAG 10 (0-99); FRAGMENT RBC FLAG 10 (0-99); HEMATOCRIT 24.6 % (40.0-51.0); HEMOGLOBIN 7.9 g/dL (13.7-17.5); LEFT SHIFT FLG 10 (0-99); LIPEMIA HEMOLYSIS FLAG 80 (0-99); MEAN CELL HEMOGLOBIN 34.1 pg (27.9-34.1); MEAN CELL HEMOGLOBIN CONCENTR. 32.1 g/dL (32.4-36.7); MEAN PLATELET VOLUME 10.8 fL (8.7-11.7); PLATELET CLUMPS FLAG 0 (0-99); PLATELET COUNT 192 10^3/uL (150-400); RED BLOOD CELL COUNT 2.32 10^6/uL (4.40-6.38); RED CELL DISTRIBUTION WIDTH 18.2 % (11.5-15.2)
[2016-06-05 05:58] LABS: ALBUMIN 3.1 g/dL (3.5-5.0); ANION GAP 16 mEq/L (8-16); CALCIUM 8.4 mg/dL (8.5-10.4); CARBON DIOXIDE 19 mEq/l (22-31); CHLORIDE 93 mEq/L (97-110); CREATININE 4.2 mg/dL (0.7-1.3); GLOMERULAR FILTRATION RATE 14; POTASSIUM 5.7 mEq/L (3.5-5.2); SODIUM 128 mEq/L (134-144)
[2016-06-05 06:25] LABS: GLUCOSE 1276 mg/dL (70-100)
[2016-06-05] MEDS: MICAFUNGIN NA 100 MG in NS 100 ML IV SCH (08:47)
[2016-06-05] MEDS: PANTOPRAZOLE SODIUM 40 MG TAB PO SCH ×2 (08:47→21:34)
[2016-06-05 09:35] LABS: ALBUMIN 3.7 g/dL (3.5-5.0); ANION GAP 19 mEq/L (8-16); CALCIUM 9.7 mg/dL (8.5-10.4); CARBON DIOXIDE 22 mEq/l (22-31); CHLORIDE 99 mEq/L (97-110); CREATININE 4.4 mg/dL (0.7-1.3); GLOMERULAR FILTRATION RATE 13; GLUCOSE 120 mg/dL (70-100); POTASSIUM 3.5 mEq/L (3.5-5.2); SODIUM 140 mEq/L (134-144)
--- NOTE | 2016-06-05 09:59 | SOAPPROG ---
SOAP Progress Note Assessment/Plan: Assessment/Plan: MILLA: previously oliguric, likely ATN. Pt now with markedly improved UOP even without Lasix now, may be starting to recover. His Cr has continued to go up from 3.3 yesterday to 4.4 today, lytes all ok, good UOP and volume status stable. - No emergent need for HD today, will hold off as we are anticipating recovery. - Will continue to monitor daily for HD needs. - Avoid MOM, morphine, NSAIDs, contrast, aminoglycosides, fleets, and other nephrotoxins. Hypervolemia: markedly improved, not on Lasix, will continue to monitor. Anemia: pt getting epo. Subjective: No acute events overnight. Pt has no complaints today, continues to have good UOP, breathing comfortably on RA. Objective: Vital Signs Temp Pulse Resp BP Pulse Ox 36.6 C 93 16 147/86 H 93 06/05/16 08:00 06/05/16 08:00 06/05/16 08:00 06/05/16 08:00 06/05/16 08:00 Laboratory Results 06/05/16 05:15 06/05/16 08:55 06/04/16 06/05/16 06/06/16 05:59 05:59 05:59 Intake Total 1446 2305 Output Total 1668 1385 225 Balance -222 920 -225 PT 15.0 SEC (12.0-15.0) 05/24/16 05:06 INR 1.18 (0.83-1.16) H 05/24/16 05:06 General: alert and oriented, no acute distress Eyes: EOMI, PERRL OP: Clear CV: RRR Resp: nonlabored respirations on RA Abd: Soft, NT Ext: no edema BLE Neuro: CN II-XII grossly intact, no asterixis Psych: flat affect ICD10 Worksheet Patient Problems: Problems Problem Status Onset Hypoxia Acute Pneumonia Acute
--- NOTE | 2016-06-05 17:17 | PCMIDPN ---
Assessment/Plan: 81 Year old male with complex hospital course now with: # Multiple bouts of Sepsis secondary to polymicrobial peritonitis from duodenal perforation. Currently sepsis resolved. CHARLIE putting bout about 40-60cc/day. WBC improving. --continue zosyn for coverage of enterococcus, lactobacillus, PsA and empiric micafungin for summer coverage --Reviewed CT from 06/04 today again. R CHARLIE Drain is sitting in minimal abscess collection, daily output does not correlate to radiologic appearance, wonder if it is necrotic fat. --based on CT and clinical findings Plan antibiotics/antifungals through . # ARF - continued HD per nephrology, may be able to wean HD soon. Monitor Cr for zosyn dosing # Dapto pneumonitis, +eos in BAL s/p steroids --dapto added to allergy list meds zosyn 2.25gm IV q8h, 05/20, #16 micafungin , #27 TPN Microbiology 05/04 blood cultures (2): Neg 05/08 C diff negative 05/20 BAL neg 05/20 blood cx (2) neg Subjective: feels tired a little more talkative today Objective: Vital Signs Temp Pulse Resp BP Pulse Ox 36.6 C 93 16 147/86 H 93 06/05/16 08:00 06/05/16 08:00 06/05/16 08:00 06/05/16 08:00 06/05/16 08:00 Laboratory Results 06/05/16 05:15 06/05/16 08:55 06/04/16 06/05/16 06/06/16 05:59 05:59 05:59 Intake Total 1446 2305 Output Total 1668 1385 345 Balance -222 920 -345 Gen: nontoxic, interactive, lying in bed o/p MMM, no thrush CV: RRR Chest: clear, shallow inspirations Abd: R CHARLIE drain with cloudy material, soft NT Ext: no edema RUE PICC ICD10 Worksheet Patient Problems: Problems Problem Status Onset Hypoxia Acute Pneumonia Acute
[2016-06-05] MEDS: oxyCODONE IR 5 MG TAB PO PRN (21:33)
[2016-06-05] MEDS: TPN 1 EA BAG IV SCH (21:34)
[2016-06-06 05:27] LABS: ABSOLUTE IMMATURE GRANULOCYTES 0.23 10^3/uL (0.00-0.10); ADD DIFF? NO; ADD MORPH? NO; ADD SCAN? NO; ATYPICAL LYMPHOCYTE FLAG 10 (0-99); FRAGMENT RBC FLAG 0 (0-99); HEMATOCRIT 22.4 % (40.0-51.0); HEMOGLOBIN 7.4 g/dL (13.7-17.5); LEFT SHIFT FLG 10 (0-99); LIPEMIA HEMOLYSIS FLAG 80 (0-99); MEAN CELL HEMOGLOBIN 30.3 pg (27.9-34.1); MEAN CELL VOLUME 91.8 fL (81.5-99.8); MEAN PLATELET VOLUME 10.2 fL (8.7-11.7); PLATELET CLUMPS FLAG 0 (0-99); PLATELET COUNT 188 10^3/uL (150-400); RED BLOOD CELL COUNT 2.44 10^6/uL (4.40-6.38); RED CELL DISTRIBUTION WIDTH 17.6 % (11.5-15.2)
[2016-06-06] MEDS: HEPARIN 5,000 UNIT/0.5 ML SYR SC SCH ×3 (05:30→21:40)
[2016-06-06] MEDS: PIPERACILLIN/TAZO 2.25 GM/DEX 50 ML IV SCH ×3 (05:31→21:19)
[2016-06-06 05:33] LABS: ALBUMIN 3.3 g/dL (3.5-5.0); ANION GAP 14 mEq/L (8-16); CALCIUM 9.5 mg/dL (8.5-10.4); CARBON DIOXIDE 20 mEq/l (22-31); CHLORIDE 103 mEq/L (97-110); CREATININE 4.8 mg/dL (0.7-1.3); GLOMERULAR FILTRATION RATE 12; GLUCOSE 83 mg/dL (70-100); POTASSIUM 3.8 mEq/L (3.5-5.2); SODIUM 137 mEq/L (134-144)
[2016-06-06] MEDS: PANTOPRAZOLE SODIUM 40 MG TAB PO SCH ×2 (08:32→21:18)
[2016-06-06] MEDS: MICAFUNGIN NA 100 MG in NS 100 ML IV SCH (08:33)
--- NOTE | 2016-06-06 10:42 | SOAPPROG ---
SOAP Progress Note Assessment/Plan: Assessment/Plan: MILLA: previously oliguric, likely ATN. Pt now with markedly improved UOP even without Lasix now, may be starting to recover. His Cr continues to uptrend, 4.8 form 4.4 yesterday, rate of rise is less. Lytes ok, volume status stable. - No emergent need for HD today, will hold off as we are anticipating recovery. - Will continue to monitor daily for HD needs. - Avoid MOM, morphine, NSAIDs, contrast, aminoglycosides, fleets, and other nephrotoxins. Hypervolemia: markedly improved, not on Lasix and still with good UOP, will continue to monitor. Anemia: pt getting epo. Metabolic acidosis: will start sodium bicarb tablets. Subjective: No acute events overnight. Pt with 1300ml UOP, today is walking around halls. Objective: Vital Signs Temp Pulse Resp BP Pulse Ox 37.1 C 96 16 148/87 H 95 06/06/16 08:00 06/06/16 08:00 06/06/16 08:00 06/06/16 08:00 06/06/16 08:00 Laboratory Results 06/06/16 05:00 06/06/16 05:00 06/05/16 06/06/16 06/07/16 05:59 05:59 05:59 Intake Total 2305 1990 Output Total 1385 1575 Balance 920 416 PT 15.0 SEC (12.0-15.0) 05/24/16 05:06 INR 1.18 (0.83-1.16) H 05/24/16 05:06 General: alert and oriented, no acute distress Eyes; EOMI, PERRL OP: Clear CV: RRR Resp: nonlabored respirations on NC Abd; Soft, NT Ext: no edema BLE Neuro: CN II-XII grossly intact, no asterixis Psych: cooperative, appropriate mood and affect ICD10 Worksheet Patient Problems: Problems Problem Status Onset Hypoxia Acute Pneumonia Acute
--- NOTE | 2016-06-06 11:28 | HOSPPROG ---
Hospitalist Progress Note Assessment/Plan: 81 yo M w recent complex hospital stay for ecoli bacteremia 2/2 choledocholithiasis and duodenal perforation s/p ERCP now here w MILLA, peritonitis # MILLA - 2/2 ATN- tunneled HD cath placed - receiving HD - creatinine 4.8 this am working on weaning HD - continue HD per renal - daily labs # Chronic Peritonitis/intra-abdominal abscess/duodenal perforation- s/p multiple I&Ds and perc drain placed by IR persistent duodenal leak now s/p repair with omental patch . CHARLIE drainage continues -abd cx with e. faecalis and lactobacillus - Continue zosyn/micafungin (length of treatment unclear at this time) - ID following. # Acute hypoxic respiratory failure- no resolved - last CXR (personally reviewed and interpreted) left apical infiltrate and bilateral pleural effusions presumed pneumonitis 2/2 daptomycin (with dapto now listed as allergy) - s/p steroid course- oxygen saturations 94% on RA - continue HD # Anemia of chronic disease - multifactorial- H&H 10/02 - monitor closely # sepsis 2/2 intraabdominal source- resolved- # Basilic vein superficial thrombosis. PICC removed, no systemic AC # Acute encephalopathy- resolved # Thrombocytopenia- transient now resolved - HIT panel neg # Drug rash- 2/2 levofloxacin - also new listed allergy # Atrial fibrillation w/ RVR- Initially rate controlled on dilt gtt- recently sinus rythmn # Diet. TPN, volume reduced- clear liquids # Prophylaxis. High risk patient, heparin subcu # Code. Full code # Disposition- > 2MN as pt remains acutely quite ill requiring IV antibiotics and HD I spent greater than 40 minutes on the phone with daughter today reviewing recent CT abdomen imaging results- current nephrology test results and a discussion regarding prognosis and plans for ongoing hemodialysis and care. there is a high level of concern with the family the patient be discharged to prematurely after all his complications. extensive time spent reassuring that he is making daily progress not only medically but with his ADLs. I have discussed the case with RN - will continue to encourage increased mobility and activity Subjective: denies significant abdominal pain Objective: Vital Signs Temp Pulse Resp BP Pulse Ox 37.1 C 96 16 148/87 H 95 06/06/16 08:00 06/06/16 08:00 06/06/16 08:00 06/06/16 08:00 06/06/16 08:00 Laboratory Results 06/06/16 05:00 06/06/16 05:00 06/05/16 06/06/16 06/07/16 05:59 05:59 05:59 Intake Total 2305 1990 Output Total 1385 1575 Balance 920 416 PT 15.0 SEC (12.0-15.0) 05/24/16 05:06 INR 1.18 (0.83-1.16) H 05/24/16 05:06 - Physical Exam Constitutional: chronically ill appearing Eyes: anicteric sclera Ears, Nose, Mouth, Throat: moist mucous membranes Cardiovascular: regular rate and rhythym Respiratory: no respiratory distress Gastrointestinal: normoactive bowel sounds, soft, non-tender abdomen, No guarding, No rebound Genitourinary: no bladder fullness Skin: warm, normal color Musculoskeletal: No asymmetric calves Neurologic: AAOx3 Psychiatric: interacting appropriately, flat affect Lymph, Heme, Immunologic: no cervical LAD ICD10 Worksheet Patient Problems: Problems Problem Status Onset Hypoxia Acute Pneumonia Acute
--- NOTE | 2016-06-06 12:52 | PCMIDPN ---
Assessment/Plan: 81 Year old male with complex hospital course now with: #Polymicrobial peritonitis from duodenal perforation. Currently sepsis resolved. CHARLIE putting about 40-60cc/day. WBC improving. --continue Zosyn for coverage of enterococcus, lactobacillus, PsA and empiric micafungin for summer coverage --based on CT and clinical findings Plan antibiotics/antifungals through . --okay to switch micafungin to fluconazole, since empiric therapy # ARF - continued HD per nephrology, may be able to wean HD soon. Monitor Cr for zosyn dosing, dose fluconazole at 200mg instead of 400mg # Dapto pneumonitis, +eos in BAL s/p steroids --dapto added to allergy list meds zosyn 2.25gm IV q8h, 05/20, #17 micafungin , #28 TPN Microbiology 05/04 blood cultures (2): Neg 05/08 C diff negative 05/20 BAL neg 05/20 blood cx (2) neg Subjective: bothered by drains already walked once and plans to walk again Objective: Vital Signs Temp Pulse Resp BP Pulse Ox 37.1 C 96 16 148/87 H 95 06/06/16 08:00 06/06/16 08:00 06/06/16 08:00 06/06/16 08:00 06/06/16 08:00 Laboratory Results 06/06/16 05:00 06/06/16 05:00 06/05/16 06/06/16 06/07/16 05:59 05:59 05:59 Intake Total 2305 1991 Output Total 1385 1575 Balance 920 416 Gen: nontoxic, interactive, lying in bed o/p MMM, no thrush CV: RRR Chest: clear, shallow inspirations Abd: R CHARLIE drain with minimal cloudy material, soft NT, j tube in place Ext: 1+ FRANK CALVIN PICC ICD10 Worksheet Patient Problems: Problems Problem Status Onset Hypoxia Acute Pneumonia Acute
[2016-06-06] MEDS: SODIUM BICARBONATE 650 MG TAB PO SCH ×3 (13:09→21:18)
[2016-06-06] MEDS: TPN 1 EA BAG IV SCH (21:19)
--- NOTE | 2016-06-06 21:46 | SOAPPROG ---
SOAP Progress Note Assessment/Plan: Assessment: STABLE TODAY/ AFEBRILE/ +STOOLS/ MINIMAL DRAINAGE/ EATING Plan:PRESENT [employer]IMEN 06/06/16 21:45 Objective: Vital Signs Temp Pulse Resp BP Pulse Ox 37.1 C 90 16 138/88 H 99 06/06/16 16:00 06/06/16 16:00 06/06/16 16:00 06/06/16 16:00 06/06/16 16:00 Laboratory Results 06/06/16 05:00 06/06/16 05:00 06/05/16 06/06/16 06/07/16 05:59 05:59 05:59 Intake Total 2305 1991 1250 Output Total 1385 1575 400 Balance 920 416 850 PT 15.0 SEC (12.0-15.0) 05/24/16 05:06 INR 1.18 (0.83-1.16) H 05/24/16 05:06 ICD10 Worksheet Patient Problems: Problems Problem Status Onset Hypoxia Acute Pneumonia Acute
[2016-06-07] MEDS: PIPERACILLIN/TAZO 2.25 GM/DEX 50 ML IV SCH ×3 (05:01→21:19)
[2016-06-07] MEDS: SODIUM BICARBONATE 650 MG TAB PO SCH ×4 (05:02→21:19)
[2016-06-07] MEDS: HEPARIN 5,000 UNIT/0.5 ML SYR SC SCH ×3 (05:02→21:21)
[2016-06-07 05:20] LABS: % IMMATURE GRANULYOCYTES 1.7 % (0.0-1.1); ABSOLUTE IMMATURE GRANULOCYTES 0.18 10^3/uL (0.00-0.10); ADD DIFF? NO; ADD MORPH? NO; ADD SCAN? NO; ATYPICAL LYMPHOCYTE FLAG 0 (0-99); FRAGMENT RBC FLAG 20 (0-99); HEMATOCRIT 22.7 % (40.0-51.0); HEMOGLOBIN 7.4 g/dL (13.7-17.5); LEFT SHIFT FLG 10 (0-99); LIPEMIA HEMOLYSIS FLAG 80 (0-99); MEAN CELL HEMOGLOBIN 30.7 pg (27.9-34.1); MEAN CELL HEMOGLOBIN CONCENTR. 32.6 g/dL (32.4-36.7); MEAN CELL VOLUME 94.2 fL (81.5-99.8); MEAN PLATELET VOLUME 10.1 fL (8.7-11.7); PLATELET CLUMPS FLAG 0 (0-99); PLATELET COUNT 183 10^3/uL (150-400); RED BLOOD CELL COUNT 2.41 10^6/uL (4.40-6.38)
[2016-06-07 05:30] LABS: ALBUMIN 3.4 g/dL (3.5-5.0); ANION GAP 16 mEq/L (8-16); CALCIUM 9.5 mg/dL (8.5-10.4); CARBON DIOXIDE 20 mEq/l (22-31); CHLORIDE 106 mEq/L (97-110); CREATININE 5.5 mg/dL (0.7-1.3); GLOMERULAR FILTRATION RATE 10; GLUCOSE 79 mg/dL (70-100); POTASSIUM 3.7 mEq/L (3.5-5.2); SODIUM 142 mEq/L (134-144)
[2016-06-07] MEDS: PANTOPRAZOLE SODIUM 40 MG TAB PO SCH ×2 (08:52→21:20)
[2016-06-07] MEDS ORDERED: FLUCONAZOLE/NaCl 200 ML IV SCH (09:00)
[2016-06-07 10:03] LABS: MAGNESIUM 1.6 mg/dL (1.6-2.3)
--- NOTE | 2016-06-07 10:16 | SOAPPROG ---
SOAP Progress Note Assessment/Plan: Assessment/Plan: 81yo M c duodenal perf s/p ex lap, repair and washout x2. Drainage thin, seropurulent. Not bilious or fecal. Abdomen is soft, NT-- reassuring. Tolerating clears. O2 needs stable. Continues with HD. Appreciate ID, renal, and medicine input. Continue care. S: Sitting up in chair. Eating clear liquid breakfast. Making some jokes this morning. Invites us to zoroastrianism service in room and tears up a bit. Wants to get a haircut. O: alert, nad, some smiles this morning ng out. mmm. sclerae white ctab rrr abd soft, nt drain seropurulent 06/07/16 10:08 Objective: Vital Signs Temp Pulse Resp BP Pulse Ox 36.4 C 108 H 20 161/98 H 96 06/07/16 08:00 06/07/16 08:00 06/07/16 08:00 06/07/16 08:00 06/07/16 08:00 Laboratory Results 06/07/16 05:00 06/07/16 05:00 06/06/16 06/07/16 06/08/16 05:59 05:59 05:59 Intake Total 19900 Output Total 1575 1495 500 Balance 416 -235 -500 PT 15.0 SEC (12.0-15.0) 05/24/16 05:06 INR 1.18 (0.83-1.16) H 05/24/16 05:06 ICD10 Worksheet Patient Problems: Problems Problem Status Onset Hypoxia Acute Pneumonia Acute
[2016-06-07] MEDS: FLUCONAZOLE/NaCl 100 ML IV SCH (11:01)
--- NOTE | 2016-06-07 11:40 | SOAPPROG ---
SOAP Progress Note Assessment/Plan: Assessment/Plan: MILLA: previously oliguric, likely ATN. Pt now with markedly improved UOP even without Lasix now, may be starting to recover. Lytes ok, volume status stable. However, his Cr and BUN continue to uptrend. - No emergent need for HD today. - Will continue to monitor daily for HD needs, likely will do HD tomorrow unless he has a shift in his trend. - Avoid MOM, morphine, NSAIDs, contrast, aminoglycosides, fleets, and other nephrotoxins. Hypervolemia: markedly improved, not on Lasix and still with good UOP, will continue to monitor. Anemia: pt getting epo. Metabolic acidosis: on sodium bicarb tablets. Subjective: No acute events overnight. Pt feeling ok overall, has been walking around, legs feel weak and energy levels still not quite normal. He continues to have good UOP. Objective: Vital Signs Temp Pulse Resp BP Pulse Ox 36.4 C 108 H 20 161/98 H 96 06/07/16 08:00 06/07/16 08:00 06/07/16 08:00 06/07/16 08:00 06/07/16 08:00 Laboratory Results 06/07/16 05:00 06/07/16 05:00 06/06/16 06/07/16 06/08/16 05:59 05:59 05:59 Intake Total 1990 1260 Output Total 1575 1495 750 Balance 416 -235 -750 PT 15.0 SEC (12.0-15.0) 05/24/16 05:06 INR 1.18 (0.83-1.16) H 05/24/16 05:06 General: alert and oriented, no acute distress Eyes; EOMI, PERRL OP: Clear CV: RRR Resp: nonlabored respirations on NC Abd: Soft, NT Ext: no edema BLE Neuro: CN II-XII Grossly intact, no asterixis Psych: cooperative, appropriate mood and affect ICD10 Worksheet Patient Problems: Problems Problem Status Onset Hypoxia Acute Pneumonia Acute
--- NOTE | 2016-06-07 12:14 | PCMIDPN ---
Assessment/Plan: Assessment: Continued abdominal fluid collection status post duodenal leak. CHARLIE drain continues to put out brownish yellow fluid. He appears to be more stable from a respiratory standpoint. Last dialysis occurred 3 days ago. Following to see if kidney function is returning. Plan: 1. Continue both Zosyn and micafungin. 2. Follow laboratory values, respiratory status and clinical course. Subjective: Patient is sitting up in his hospital bed. He is more talkative and interactive than he has been on previous visits. He denies any new complaints. He states he is getting stronger very gradually. Objective: Zosyn # 18 Fluconazole # 29 Vital Signs Temp Pulse Resp BP Pulse Ox 36.4 C 108 H 20 161/98 H 96 06/07/16 08:00 06/07/16 08:00 06/07/16 08:00 06/07/16 08:00 06/07/16 08:00 Laboratory Results 06/07/16 05:00 06/07/16 05:00 06/06/16 06/07/16 06/08/16 05:59 05:59 05:59 Intake Total 1990 1260 Output Total 1575 1495 750 Balance 416 -238 -750 - Physical Exam General Appearance: WD/WN, alert, no apparent distress, non-toxic Respiratory: lungs clear, normal breath sounds, No respiratory distress Cardiac/Chest: regular rate, rhythm, No tachycardia Abdomen: non-tender, soft, other (CHARLIE drain from right flank with seropurulent fluid.) Skin: normal color, warm/dry, No rash Neuro/Psych: alert, normal mood/affect, oriented x 3 ICD10 Worksheet Patient Problems: Problems Problem Status Onset Hypoxia Acute Pneumonia Acute
--- NOTE | 2016-06-07 13:54 | HOSPPROG ---
Hospitalist Progress Note Assessment/Plan: 81 yo M w recent complex hospital stay for ecoli bacteremia 2/2 choledocholithiasis and duodenal perforation s/p ERCP now here w MILLA, peritonitis # MILLA - 2/2 ATN- tunneled HD cath placed - receiving HD - creatinine 4.8-> 5.5 this am - HD tomorrow per renal - continue sodium bicarb - daily labs # Chronic Peritonitis/intra-abdominal abscess/duodenal perforation- CT abd ( personally reviewed and interpreted) without contrast leak no abscess persistent duodenal leak now s/p repair with omental patch . CHARLIE drainage - milky appearing today - Continue zosyn/ fluconazole- stop date 06/10 - ID and surgery following. # Acute hypoxic respiratory failure- no resolved - last CXR -left apical infiltrate and bilateral pleural effusions presumed pneumonitis 2/2 daptomycin (with dapto now listed as allergy) - s/p steroid course- oxygen saturations 96% on RA - continue HD # Anemia of chronic disease - multifactorial- H&H remains 10/02 - monitor closely # sepsis 2/2 intraabdominal source- resolved- # Basilic vein superficial thrombosis. PICC removed, no systemic AC # Acute encephalopathy- resolved # Thrombocytopenia- transient now resolved - HIT panel neg # Drug rash- 2/2 levofloxacin - also new listed allergy # Atrial fibrillation w/ RVR- Initially rate controlled on dilt gtt- recently sinus rythmn # Diet. TPN, volume reduced- tolerating clear liquids # Prophylaxis. High risk patient, heparin subcu # Code. Full code # Disposition- > 2MN as pt remains acutely quite ill requiring IV antibiotics and HD I have discussed the case with surgery- we will continue to monitor the patient's CHARLIE output while taking clear liquid diet Subjective: enjoys yellow Jell-O Objective: Vital Signs Temp Pulse Resp BP Pulse Ox 36.4 C 108 H 20 161/98 H 96 06/07/16 08:00 06/07/16 08:00 06/07/16 08:00 06/07/16 08:00 06/07/16 08:00 Laboratory Results 06/07/16 05:00 06/07/16 05:00 06/06/16 06/07/16 06/08/16 05:59 05:59 05:59 Intake Total 1990 1260 Output Total 1575 1495 750 Balance 416 -235 -750 PT 15.0 SEC (12.0-15.0) 05/24/16 05:06 INR 1.18 (0.83-1.16) H 05/24/16 05:06 - Physical Exam Constitutional: chronically ill appearing Eyes: anicteric sclera Ears, Nose, Mouth, Throat: moist mucous membranes Cardiovascular: regular rate and rhythym Respiratory: no respiratory distress, no rales or rhonchi Gastrointestinal: normoactive bowel sounds, soft, non-tender abdomen Genitourinary: no bladder fullness Skin: warm Musculoskeletal: No asymmetric calves Neurologic: AAOx3 Psychiatric: interacting appropriately, not anxious Lymph, Heme, Immunologic: no cervical LAD ICD10 Worksheet Patient Problems: Problems Problem Status Onset Hypoxia Acute Pneumonia Acute
[2016-06-07] MEDS ORDERED: MAGNESIUM SULF 1 GM/DEXTROSE 100 ML IV ONE (14:00)
[2016-06-07] MEDS: oxyCODONE IR 5 MG TAB PO PRN (21:19)
[2016-06-07] MEDS: TPN 1 EA BAG IV SCH (21:19)
[2016-06-08 04:22] LABS: ALANINE AMINOTRANSFERASE 36 IU/L (21-72); ALBUMIN 3.3 g/dL (3.5-5.0); ALKALINE PHOSPHATASE 87 IU/L (38-126); ANION GAP 18 mEq/L (8-16); ASPARTATE AMINOTRANSFERASE 21 IU/L (17-59); BILIRUBIN,TOTAL 0.7 mg/dL (0.1-1.4); CALCIUM 9.6 mg/dL (8.5-10.4); CARBON DIOXIDE 17 mEq/l (22-31); CHLORIDE 106 mEq/L (97-110); CREATININE 5.5 mg/dL (0.7-1.3); GLOMERULAR FILTRATION RATE 10; GLUCOSE 94 mg/dL (70-100); POTASSIUM 3.8 mEq/L (3.5-5.2); SODIUM 141 mEq/L (134-144); TOTAL PROTEIN 6.9 g/dL (6.3-8.2)
[2016-06-08] MEDS: PIPERACILLIN/TAZO 2.25 GM/DEX 50 ML IV SCH ×3 (06:23→20:50)
[2016-06-08] MEDS: SODIUM BICARBONATE 650 MG TAB PO SCH ×4 (06:23→20:50)
[2016-06-08] MEDS: HEPARIN 5,000 UNIT/0.5 ML SYR SC SCH ×3 (06:23→20:50)
[2016-06-08] MEDS: FLUCONAZOLE/NaCl 100 ML IV SCH (09:11)
--- NOTE | 2016-06-08 09:20 | SOAPPROG ---
SOAP Progress Note Assessment/Plan: Assessment: 1. MILLA Likely oliguric ischemic ATN. Non oliguric. Cr and lytes ok, BUN rising. HD today. 2. TPN Continues. 3. MS Much improved since I last saw him. 5. Pulmonary Stable. Subjective: Doing better Objective: Vital Signs Temp Pulse Resp BP Pulse Ox 36.7 C 88 18 151/87 H 94 06/08/16 08:00 06/08/16 08:00 06/08/16 08:00 06/08/16 08:00 06/08/16 08:00 Laboratory Results 06/07/16 05:00 06/08/16 03:45 06/07/16 06/08/16 06/09/16 05:59 05:59 05:59 Intake Total 1260 4851 Output Total 1495 1855 Balance -235 2996 PT 15.0 SEC (12.0-15.0) 05/24/16 05:06 INR 1.18 (0.83-1.16) H 05/24/16 05:06 Physical Exam - Physical Exam General Appearance: no apparent distress, cachetic Neck: other (cath site ok) Respiratory: normal breath sounds Cardiac/Chest: irregularly irregular Abdomen: other (drain in place) Extremities: pedal edema (trace) Neuro/Psych: oriented x 3 ICD10 Worksheet Patient Problems: Problems Problem Status Onset Hypoxia Acute Pneumonia Acute
[2016-06-08] MEDS: PANTOPRAZOLE SODIUM 40 MG TAB PO SCH ×2 (09:25→20:50)
--- NOTE | 2016-06-08 10:18 | SOAPPROG ---
SOAP Progress Note Assessment/Plan: Assessment/Plan: 81yo M c duodenal perf s/p ex lap, repair and washout x2. No major changes overnight. Continue current management. Will discuss timing of possible diet advancement with Dr. Salcedo today. Very hesitant to move quickly given past events. S: Sitting up bedside. Legs feel stiff he says. Wants to stretch them and nurse offering to massage with lotion. O: alert, nad mmm. sclerae white ctab rrr abd soft, nt drain seropurulent ext: no calf tenderness, warm, dry 06/08/16 10:15 Objective: Vital Signs Temp Pulse Resp BP Pulse Ox 36.7 C 88 18 151/87 H 94 06/08/16 08:00 06/08/16 08:00 06/08/16 08:00 06/08/16 08:00 06/08/16 08:00 Laboratory Results 06/07/16 05:00 06/08/16 03:45 06/07/16 06/08/16 06/09/16 05:59 05:59 05:59 Intake Total 1260 3402 Output Total 1495 1855 Balance -235 1547 PT 15.0 SEC (12.0-15.0) 05/24/16 05:06 INR 1.18 (0.83-1.16) H 05/24/16 05:06 ICD10 Worksheet Patient Problems: Problems Problem Status Onset Hypoxia Acute Pneumonia Acute
--- NOTE | 2016-06-08 13:40 | HOSPPROG ---
Hospitalist Progress Note Assessment/Plan: 81 yo M w recent complex hospital stay for ecoli bacteremia 2/2 choledocholithiasis and duodenal perforation s/p ERCP now here w MILLA, peritonitis # MILLA - 2/2 ATN- tunneled HD cath placed - receiving HD - creatinine 4.8-> 5.5 still this am - HD per renal - continue sodium bicarb - daily labs # Chronic Peritonitis/intra-abdominal abscess/duodenal perforation- CT abd ( personally reviewed and interpreted) without contrast leak no abscess persistent duodenal leak now s/p repair with omental patch . CHARLIE drainage - less milky appearing today - Continue zosyn/ fluconazole- stop date 06/10 - ID and surgery following. # Acute hypoxic respiratory failure- now resolved - last CXR -left apical infiltrate and bilateral pleural effusions presumed pneumonitis 2/2 daptomycin (with dapto now listed as allergy) - s/p steroid course- oxygen saturations 94% on RA - continue HD # Anemia of chronic disease - multifactorial- H&H remains 10/02 - monitor closely # sepsis 2/2 intraabdominal source- resolved- # Basilic vein superficial thrombosis. PICC removed, no systemic AC # Acute encephalopathy- resolved # Thrombocytopenia- transient now resolved - HIT panel neg # Drug rash- 2/2 levofloxacin - also new listed allergy # Atrial fibrillation w/ RVR- Initially rate controlled on dilt gtt- EKG ( personally reviewed and interpreted) with ectopic atrial tachycardia # Diet. TPN, volume reduced- tolerating clear liquids # Prophylaxis. High risk patient, heparin subcu # Code. Full code # Disposition- > 2MN as pt remains acutely quite ill requiring IV antibiotics and HD I have discussed the case with surgery- CHARLIE output remains low and non-bilious- tolerating clear liquids Subjective: hungry for more food Objective: Vital Signs Temp Pulse Resp BP Pulse Ox 36.7 C 88 18 151/87 H 94 06/08/16 08:00 06/08/16 08:00 06/08/16 08:00 06/08/16 08:00 06/08/16 08:00 Microbiology 05/20/16 04:05 Mycobacterial Smear (TROY) - Final Bronchial [place] - Bilateral Lobes Laboratory Results 06/07/16 05:00 06/08/16 03:45 06/07/16 06/08/16 06/09/16 05:59 05:59 05:59 Intake Total 1260 3402 Output Total 1495 1855 Balance -235 1547 PT 15.0 SEC (12.0-15.0) 05/24/16 05:06 INR 1.18 (0.83-1.16) H 05/24/16 05:06 - Physical Exam Constitutional: chronically ill appearing Eyes: anicteric sclera Ears, Nose, Mouth, Throat: moist mucous membranes Cardiovascular: regular rate and rhythym Respiratory: no respiratory distress Gastrointestinal: normoactive bowel sounds, soft, non-tender abdomen Genitourinary: no bladder fullness Skin: warm Musculoskeletal: No asymmetric calves Neurologic: AAOx3 Psychiatric: interacting appropriately, not anxious Lymph, Heme, Immunologic: no cervical LAD ICD10 Worksheet Patient Problems: Problems Problem Status Onset Hypoxia Acute Pneumonia Acute
[2016-06-08] MEDS: oxyCODONE IR 5 MG TAB PO PRN (20:49)
[2016-06-08] MEDS: TPN 1 EA BAG IV SCH (20:50)
[2016-06-08] MEDS ORDERED: HEPARIN 50,000 UNIT/10 ML VIAL ONE (21:22)
[2016-06-09] MEDS: oxyCODONE IR 5 MG TAB PO PRN ×3 (00:59→20:38)
[2016-06-09] MEDS: PIPERACILLIN/TAZO 2.25 GM/DEX 50 ML IV SCH ×3 (05:46→20:37)
[2016-06-09] MEDS: SODIUM BICARBONATE 650 MG TAB PO SCH ×4 (05:46→20:37)
[2016-06-09] MEDS: HEPARIN 5,000 UNIT/0.5 ML SYR SC SCH ×3 (05:47→20:37)
[2016-06-09 06:32] LABS: ALBUMIN 3.3 g/dL (3.5-5.0); ANION GAP 13 mEq/L (8-16); CALCIUM 9.7 mg/dL (8.5-10.4); CARBON DIOXIDE 25 mEq/l (22-31); CHLORIDE 102 mEq/L (97-110); CREATININE 3.5 mg/dL (0.7-1.3); GLOMERULAR FILTRATION RATE 17; GLUCOSE 99 mg/dL (70-100); MAGNESIUM 1.8 mg/dL (1.6-2.3); POTASSIUM 3.7 mEq/L (3.5-5.2); SODIUM 140 mEq/L (134-144)
--- NOTE | 2016-06-09 08:15 | HOSPPROG ---
Hospitalist Progress Note Assessment/Plan: Mr Mcdaniel is a 81 yo M w recent complex hospital stay for ecoli bacteremia 2/2 choledocholithiasis and duodenal perforation s/p ERCP. He was admitted on May 04 with acute renal failure and peritonitis. Today is my 1st encounter with the patient. Chart reviewed. Reviewed his care with Dr Tejada. # MILLA - 2/2 ATN- tunneled HD cath placed - receiving HD - Creatinine is 3.5 - HD per renal - continue sodium bicarb # polymicrobial Peritonitis from duodenal perforation/intra-abdominal abscess - persistent duodenal leak now s/p repair with omental patch / upper gi looks okay/ await for surgical team to decide on reg diet - Continue zosyn/ fluconazole- stop date 06/10 - ID and surgery following. #right thigh numbness/intermittent -will monitor/ if continues, will consider an MRI # Acute hypoxic respiratory failure/ daptomycin pneumonitis- now resolved -on room air -daptomycin listed as an allergy # Anemia of chronic disease - multifactorial- H&H remains 09/30 - monitor closely #Lightheadedness -occurred after dialysis last evening and this morning -ambulating well # sepsis 2/2 intraabdominal source- resolved # Basilic vein superficial thrombosis. PICC removed, no systemic AC # Acute encephalopathy- resolved # Thrombocytopenia- - HIT panel neg - resolved # Drug rash- 2/2 levofloxacin -Levaquin is now listed as an allergy # Atrial fibrillation w/ RVR- -none further/ was treated w Diltazem gtt # Diet. TPN + clear liquids -will await input from surgery about increasing diet # Prophylaxis. High risk patient, heparin subcu # Code. Full code # Disposition- > 2MN as pt remains acutely quite ill requiring IV antibiotics and HD Subjective: Darren is tired but has no specific complaints except some numbness to his right thigh that comes and goes. Objective: Vital Signs Temp Pulse Resp BP Pulse Ox 36.9 C 92 16 148/94 H 96 06/08/16 23:31 06/08/16 23:31 06/08/16 23:31 06/08/16 23:31 06/08/16 23:31 Microbiology 05/20/16 04:05 Mycobacterial Smear (TROY) - Final Bronchial [place] - Bilateral Lobes Laboratory Results 06/07/16 05:00 06/09/16 05:45 06/08/16 06/09/16 06/10/16 05:59 05:59 05:59 Intake Total 3502 1576 Output Total 1855 750 Balance 1647 826 PT 15.0 SEC (12.0-15.0) 05/24/16 05:06 INR 1.18 (0.83-1.16) H 05/24/16 05:06 - Physical Exam Constitutional: chronically ill appearing, uncomfortable Eyes: PERRL Ears, Nose, Mouth, Throat: ears appear normal Cardiovascular: regular rate and rhythym Respiratory: no respiratory distress, no rales or rhonchi Gastrointestinal: normoactive bowel sounds, other (drain with milky type drainage) Skin: warm, No normal color (pale) Musculoskeletal: generalized weakness Neurologic: AAOx3 Psychiatric: interacting appropriately, not anxious ICD10 Worksheet Patient Problems: Problems Problem Status Onset Hypoxia Acute Pneumonia Acute
--- NOTE | 2016-06-09 10:00 | PCMIDPN ---
Assessment/Plan: 81 Year old male with complex hospital course generally getting significantly better #Polymicrobial peritonitis from duodenal perforation. UGI today confirms no leak. CHARLIE putting about 40-80cc/day. WBC improving. I am leaning towards stopping antibiotic therapy tomorrow, will discuss with partners. # ARF - continued HD per nephrology, may be able to wean HD soon. Monitor Cr for zosyn dosing, dose fluconazole at 200mg instead of 400mg meds zosyn 2.25gm IV q8h, 05/20, #19 fluconazole 200mg IV daily , antifungal#30 TPN Microbiology 05/04 blood cultures (2): Neg 05/08 C diff negative 05/20 BAL neg 05/20 blood cx (2) neg Subjective: fairly cheerful, feels light headed today which he attributes to HD Objective: Vital Signs Temp Pulse Resp BP Pulse Ox 36.7 C 96 18 130/82 H 94 06/09/16 08:00 06/09/16 08:00 06/09/16 08:00 06/09/16 08:00 06/09/16 08:00 Microbiology 05/20/16 04:05 Mycobacterial Smear (TRYO) - Final Bronchial [place] - Bilateral Lobes Laboratory Results 06/07/16 05:00 06/09/16 05:45 06/08/16 06/09/16 06/10/16 05:59 05:59 05:59 Intake Total 3502 1576 Output Total 1855 750 Balance 1647 826 - Physical Exam General Appearance: alert, no apparent distress EENT: No thrush Respiratory: lungs clear, No accessory muscle use Neck: supple Cardiac/Chest: regular rate, rhythm Extremities: pedal edema (trace to 1+) Abdomen: non-tender, soft, other (R CHARLIE drain with brown-evans material, possibly thinner character than prior) Skin: pallor, No rash Neuro/Psych: alert, normal mood/affect, oriented x 3 - Line/s Kim Lines: other (R chest), No drainage, No erythema RUE PICC Lines: No drainage, No erythema ICD10 Worksheet Patient Problems: Problems Problem Status Onset Hypoxia Acute Pneumonia Acute
[2016-06-09] MEDS: PANTOPRAZOLE SODIUM 40 MG TAB PO SCH ×2 (10:15→20:37)
[2016-06-09] MEDS: FLUCONAZOLE/NaCl 100 ML IV SCH (10:15)
[2016-06-09] MEDS: ONDANSETRON 4 MG/2 ML VIAL IVP PRN (11:46)
--- NOTE | 2016-06-09 12:46 | SOAPPROG ---
SOAP Progress Note Assessment/Plan: Assessment: 1. MILLA Non oliguric. Dialyzed yesterday. Hold and follow. 2. TPN Continues. UGI series looked good. Possible initiation of additional enteral feeds. 3. MS Better 5. Pulmonary Stable. 6. Anemic, but stable 06/09/16 12:44 Subjective: In good spirits Objective: Vital Signs Temp Pulse Resp BP Pulse Ox 36.7 C 96 18 130/82 H 94 06/09/16 08:00 06/09/16 08:00 06/09/16 08:00 06/09/16 08:00 06/09/16 08:00 Microbiology 05/20/16 04:05 Mycobacterial Smear (TROY) - Final Bronchial [place] - Bilateral Lobes Laboratory Results 06/07/16 05:00 06/09/16 05:45 06/08/16 06/09/16 06/10/16 05:59 05:59 05:59 Intake Total 3502 1576 Output Total 1855 750 Balance 1647 826 PT 15.0 SEC (12.0-15.0) 05/24/16 05:06 INR 1.18 (0.83-1.16) H 05/24/16 05:06 Physical Exam - Physical Exam General Appearance: no apparent distress Respiratory: lungs clear Cardiac/Chest: tachycardia Abdomen: other (drain in place) Extremities: pedal edema Neuro/Psych: oriented x 3 ICD10 Worksheet Patient Problems: Problems Problem Status Onset Hypoxia Acute Pneumonia Acute
[2016-06-09] MEDS ORDERED: ACETAMINOPHEN 325 MG TAB ONE (20:32)
[2016-06-09] MEDS: TPN 1 EA BAG IV SCH (20:37)
[2016-06-10] MEDS: oxyCODONE IR 5 MG TAB PO PRN (00:30)
[2016-06-10] MEDS: SODIUM BICARBONATE 650 MG TAB PO SCH ×4 (05:53→22:21)
[2016-06-10] MEDS: HEPARIN 5,000 UNIT/0.5 ML SYR SC SCH ×3 (05:53→22:21)
[2016-06-10] MEDS: PIPERACILLIN/TAZO 2.25 GM/DEX 50 ML IV SCH (05:53)
[2016-06-10] MEDS: PANTOPRAZOLE SODIUM 40 MG TAB PO SCH ×2 (08:22→22:21)
[2016-06-10] MEDS: FLUCONAZOLE/NaCl 100 ML IV SCH (08:23)
[2016-06-10] MEDS: EPOETIN ALFA 10,000 UNIT/ML VIAL SC SCH (10:07)
[2016-06-10] MEDS ORDERED: AMPICILLIN/SULBACTAM 3 GM in NS 100 ML IV SCH (12:00)
--- NOTE | 2016-06-10 12:26 | SOAPPROG ---
SOAP Progress Note Assessment/Plan: Assessment: 81yo male s/p repair/washout of duodenal ulcer, readmitted for acute renal failure, intraabdominal abscess s/p IR drainage during this stay. Acute respiratory failure. Recently started on clears, denies significant pain, drain output decreased to approx 30cc/24hrs PE alert, on room air appears comfortable Abdomen very soft to palpation, drain in plce with scant serous drainage Lower ext no edema Plan: ok to advance diet to light diet will continue to monitor drain output with advancing diet saw pt with Dr Salcedo 05/05/16 13:49 05/19/16 12:49 06/02/16 10:51 06/10/16 12:25 06/10/16 12:26 06/10/16 12:27 Objective: Vital Signs Temp Pulse Resp BP Pulse Ox 36.4 C 101 H 16 133/86 H 96 06/10/16 08:00 06/10/16 08:00 06/10/16 08:00 06/10/16 08:00 06/10/16 08:00 Laboratory Results 06/07/16 05:00 06/09/16 05:45 06/09/16 06/10/16 06/11/16 05:59 05:59 05:59 Intake Total 1576 355 250 Output Total 750 955 35 Balance 826 -600 215 PT 15.0 SEC (12.0-15.0) 05/24/16 05:06 INR 1.18 (0.83-1.16) H 05/24/16 05:06 ICD10 Worksheet Patient Problems: Problems Problem Status Onset Hypoxia Acute Pneumonia Acute
--- NOTE | 2016-06-10 12:49 | PCMIDPN ---
Assessment/Plan: 81 Year old male with complex hospital course generally getting significantly better, advancing to soft diet #Polymicrobial peritonitis from duodenal perforation. UGI today confirms no leak. CHARLIE putting about 40-80cc/day. WBC improving. --plan 2 more weeks of antibiotics for total of 6 weeks, step down to unasyn alone may be able to dc on PO Augmentin # ARF - HD as needed per renal --renal dose Unasyn meds zosyn 2.25gm IV q8h, 05/20, #20 fluconazole 200mg IV daily , antifungal#31 TPN Microbiology 05/04 blood cultures (2): Neg 05/08 C diff negative 05/20 BAL neg 05/20 blood cx (2) neg Subjective: very cheerful, vigorous today! doing leg exercises in chair granddaughter at bedside advanced to light diet Objective: Vital Signs Temp Pulse Resp BP Pulse Ox 36.4 C 101 H 16 133/86 H 96 06/10/16 08:00 06/10/16 08:00 06/10/16 08:00 06/10/16 08:00 06/10/16 08:00 Laboratory Results 06/07/16 05:00 06/09/16 05:45 06/09/16 06/10/16 06/11/16 05:59 05:59 05:59 Intake Total 1576 355 250 Output Total 750 955 35 Balance 826 -600 215 General Appearance: alert, no apparent distress EENT: No thrush Respiratory: lungs clear, No accessory muscle use Neck: supple Cardiac/Chest: regular rate, rhythm Extremities: pedal edema (trace to 1+) Abdomen: non-tender, soft, R CHARLIE drain with brown-evans material, possibly thinner character than prior, 30cc/24hrs Skin: pallor, No rash Neuro/Psych: alert, normal mood/affect, oriented x 3 Kim: other (R chest), No drainage, No erythema RUE PICC: No drainage, No erythema - Time Spent With Patient Time Spent with Patient: greater than 35 minutes (reviewed antibiotic changes, unclear source of ongoing R CHARLIE drainage, signifcant improvement overall, labs with patient and 2 grand daughters) Time Spent with Patient: Greater than 35 minutes spent on this patients care, greater than 50% of time spent counseling, educating, and coordinating care regarding the above mentioned plan. ICD10 Worksheet Patient Problems: Problems Problem Status Onset Hypoxia Acute Pneumonia Acute
[2016-06-10] MEDS: AMPICILLIN/SULBACTAM 1.5 GM in NS 100 ML IV SCH ×2 (13:33→17:17)
--- NOTE | 2016-06-10 14:37 | HOSPPROG ---
Hospitalist Progress Note Assessment/Plan: Mr Mcdaniel is a 81 yo M w recent complex hospital stay for ecoli bacteremia 2/2 choledocholithiasis and duodenal perforation s/p ERCP. He was admitted on May 04 with acute renal failure and peritonitis. Reviewed his care with Dr Tejada. # MILLA - 2/2 ATN- tunneled HD cath placed - receiving HD - recent Creatinine is 3.5/labs from today pending - HD per renal - continue sodium bicarb # polymicrobial Peritonitis from duodenal perforation/intra-abdominal abscess - persistent duodenal leak now s/p repair with omental patch / upper gi looks okay/ diet advanced today - antibiotic changed to Unasyn today/ fluconazole- - if can tolerate PO, will likely dc on Augmentin - ID and surgery following. #right thigh numbness/intermittent -no further complaints # Acute hypoxic respiratory failure/ daptomycin pneumonitis- now resolved -on room air -daptomycin listed as an allergy # Anemia of chronic disease - multifactorial- H&H remains 09/30 - monitor closely #Lightheadedness -resolved # sepsis 2/2 intraabdominal source- resolved # Basilic vein superficial thrombosis. PICC removed, no systemic AC # Acute encephalopathy- resolved # Thrombocytopenia- - HIT panel neg - resolved # Drug rash- 2/2 levofloxacin -Levaquin is now listed as an allergy # Atrial fibrillation w/ RVR- -none further/ was treated w Diltazem gtt # Diet. TPN + reg diet -if able to continue eating, will dc TPN tomorrow # Prophylaxis. High risk patient, heparin subcu # Code. Full code # Disposition- > 2MN as pt remains acutely quite ill requiring IV antibiotics and HD Subjective: Darren is in good spirits. Says he has an appetite. Objective: Vital Signs Temp Pulse Resp BP Pulse Ox 36.4 C 101 H 16 133/86 H 96 06/10/16 08:00 06/10/16 08:00 06/10/16 08:00 06/10/16 08:00 06/10/16 08:00 Laboratory Results 06/07/16 05:00 06/09/16 05:45 06/09/16 06/10/16 06/11/16 05:59 05:59 05:59 Intake Total 1576 355 250 Output Total 750 955 35 Balance 826 -600 215 PT 15.0 SEC (12.0-15.0) 05/24/16 05:06 INR 1.18 (0.83-1.16) H 05/24/16 05:06 - Physical Exam Constitutional: no apparent distress, chronically ill appearing Eyes: PERRL Ears, Nose, Mouth, Throat: hearing normal Cardiovascular: regular rate and rhythym Respiratory: no respiratory distress Gastrointestinal: normoactive bowel sounds Skin: warm Musculoskeletal: no muscle tenderness Neurologic: AAOx3 Psychiatric: interacting appropriately, not anxious ICD10 Worksheet Patient Problems: Problems Problem Status Onset Hypoxia Acute Pneumonia Acute
--- NOTE | 2016-06-10 15:05 | SOAPPROG ---
SOAP Progress Note Assessment/Plan: Assessment/Plan: MILLA: previously oliguric, likely ATN. Pt now with markedly improved UOP even without Lasix now, may be starting to recover. Lytes ok, volume status stable. However, his Cr and BUN have continued to uptrend. He was last dialyzed on Tuesday. - No emergent need for HD today. - Will continue to monitor daily for HD needs. - Will check renal function panel daily. - Avoid MOM, morphine, NSAIDs, contrast, aminoglycosides, fleets, and other nephrotoxins. Anemia: pt getting epo. Metabolic acidosis: CO2 25, on sodium bicarb tablets. Subjective: No acute events overnight. Pt reports that he ate some tilapia for lunch, so far tolerating it. He has no pain, plans to walk around more. Objective: Vital Signs Temp Pulse Resp BP Pulse Ox 36.4 C 101 H 16 133/86 H 96 06/10/16 08:00 06/10/16 08:00 06/10/16 08:00 06/10/16 08:00 06/10/16 08:00 Laboratory Results 06/07/16 05:00 06/09/16 05:45 06/09/16 06/10/16 06/11/16 05:59 05:59 05:59 Intake Total 1576 355 250 Output Total 750 955 35 Balance 826 -600 215 PT 15.0 SEC (12.0-15.0) 05/24/16 05:06 INR 1.18 (0.83-1.16) H 05/24/16 05:06 General: alert and oriented, no acute distress Eyes; EOMI, pERRL OP: Clear CV: RRR Resp: nonlabored respirations on RA Abd: Soft, NT Ext: trace edema BLE Neuro: CN II-XII grossly intact, no asterixis Psych: cooperative, appropriate mood and affect Access: RIJ tunneled catheter ICD10 Worksheet Patient Problems: Problems Problem Status Onset Hypoxia Acute Pneumonia Acute
[2016-06-10] MEDS: TPN 1 EA BAG IV SCH (21:00)
[2016-06-11] MEDS: AMPICILLIN/SULBACTAM 1.5 GM in NS 100 ML IV SCH ×3 (00:15→14:39)
[2016-06-11] MEDS: SODIUM BICARBONATE 650 MG TAB PO SCH ×4 (05:18→21:19)
[2016-06-11] MEDS: HEPARIN 5,000 UNIT/0.5 ML SYR SC SCH ×3 (05:18→21:16)
[2016-06-11 05:56] LABS: ANION GAP 18 mEq/L (8-16); CALCIUM 9.4 mg/dL (8.5-10.4); CARBON DIOXIDE 21 mEq/l (22-31); CHLORIDE 101 mEq/L (97-110); CREATININE 4.9 mg/dL (0.7-1.3); GLOMERULAR FILTRATION RATE 12; GLUCOSE 110 mg/dL (70-100); MAGNESIUM 1.6 mg/dL (1.6-2.3); POTASSIUM 3.8 mEq/L (3.5-5.2); SODIUM 140 mEq/L (134-144)
[2016-06-11] MEDS: PANTOPRAZOLE SODIUM 40 MG TAB PO SCH ×2 (08:54→21:19)
--- NOTE | 2016-06-11 09:49 | SOAPPROG ---
SOMATTY Progress Note Assessment/Plan: Assessment:Plan: ARF-increased urine output -I/O = 500/1135 -had Hd Tuesday -volume status better -weight down from 74.6 to 73.5 -BUN 91 today -will plan for Hd today without fluid removal -will follow for recovery -next Hd on Tuesday if needed, but may be at point that this is his last dialysis Access-tunneled catheter Dispo-pending 06/11/16 09:49 Subjective: feeling better Objective: Vital Signs Temp Pulse Resp BP Pulse Ox 36.9 C 104 H 16 154/86 H 90 L 06/11/16 07:43 06/11/16 07:43 06/11/16 07:43 06/11/16 07:43 06/11/16 07:43 Laboratory Results 06/07/16 05:00 06/11/16 05:35 06/10/16 06/11/16 06/12/16 05:59 05:59 05:59 Intake Total 355 550 Output Total 955 1135 Balance -600 -585 PT 15.0 SEC (12.0-15.0) 05/24/16 05:06 INR 1.18 (0.83-1.16) H 05/24/16 05:06 Physical Exam - Physical Exam General Appearance: alert, no apparent distress, thin EENT: normal ENT inspection Neck: normal inspection Respiratory: decreased breath sounds (L 1/4, CTA on R) Cardiac/Chest: regular rate, rhythm Abdomen: normal bowel sounds Extremities: swelling (confined to below his knees) ICD10 Worksheet Patient Problems: Problems Problem Status Onset Hypoxia Acute Pneumonia Acute
--- NOTE | 2016-06-11 10:09 | HOSPPROG ---
Hospitalist Progress Note Assessment/Plan: Mr Mcdaniel is a 81 yo M w recent complex hospital stay for ecoli bacteremia 2/2 choledocholithiasis and duodenal perforation s/p ERCP. He was admitted on May 04 with acute renal failure and peritonitis. Reviewed his care with Dr Avila and Surya DISLA. # MILLA - 2/2 ATN- tunneled HD cath placed - receiving HD - creat is 4.9/ dialysis today/ should recover/has good urine output - continue sodium bicarb # polymicrobial Peritonitis from duodenal perforation/intra-abdominal abscess - persistent duodenal leak now s/p repair with omental patch / upper gi looks okay/ tolerating food - Unasyn today/ fluconazole- - will likely dc on Augmentin - ID and surgery following. #right thigh numbness/intermittent -no further complaints # Acute hypoxic respiratory failure/ daptomycin pneumonitis- now resolved -on room air -daptomycin listed as an allergy # Anemia of chronic disease - multifactorial - monitor closely #Lightheadedness -resolved # sepsis 2/2 intraabdominal source- resolved # Basilic vein superficial thrombosis. PICC removed, no systemic AC # Acute encephalopathy- resolved # Thrombocytopenia- - HIT panel neg - resolved # Drug rash- 2/2 levofloxacin -Levaquin is now listed as an allergy # Atrial fibrillation w/ RVR- -none further/ was treated w Diltazem gtt # Diet. dc TPN today/ eating slowly # Prophylaxis. High risk patient, heparin subcu # Code. Full code # Disposition- pending Subjective: Darren has no complaints/ spirits are good/ grand-daughter at bedside Objective: Vital Signs Temp Pulse Resp BP Pulse Ox 36.9 C 104 H 16 154/86 H 90 L 06/11/16 07:43 06/11/16 07:43 06/11/16 07:43 06/11/16 07:43 06/11/16 07:43 Laboratory Results 06/07/16 05:00 06/11/16 05:35 06/10/16 06/11/16 06/12/16 05:59 05:59 05:59 Intake Total 355 550 Output Total 955 1135 Balance -600 -585 PT 15.0 SEC (12.0-15.0) 05/24/16 05:06 INR 1.18 (0.83-1.16) H 05/24/16 05:06 - Physical Exam Constitutional: chronically ill appearing, other (thin) Eyes: PERRL Ears, Nose, Mouth, Throat: hearing normal Cardiovascular: regular rate and rhythym Respiratory: no respiratory distress Gastrointestinal: normoactive bowel sounds, other (etienne with milky drainage, but more clear in tubing) Skin: warm, No normal color (pale) Musculoskeletal: generalized weakness Neurologic: AAOx3 Psychiatric: interacting appropriately, not anxious ICD10 Worksheet Patient Problems: Problems Problem Status Onset Hypoxia Acute Pneumonia Acute
--- NOTE | 2016-06-11 11:50 | SOAPPROG ---
SOAP Progress Note Assessment/Plan: Assessment:Plan: ARF-stable on dialysis -tolerating treatment well catheter with good function 06/11/16 11:46 Objective: Vital Signs Temp Pulse Resp BP Pulse Ox 36.9 C 104 H 16 154/86 H 90 L 06/11/16 07:43 06/11/16 07:43 06/11/16 07:43 06/11/16 07:43 06/11/16 07:43 Laboratory Results 06/07/16 05:00 06/11/16 05:35 06/10/16 06/11/16 06/12/16 05:59 05:59 05:59 Intake Total 355 550 Output Total 955 1135 Balance -600 -585 PT 15.0 SEC (12.0-15.0) 05/24/16 05:06 INR 1.18 (0.83-1.16) H 05/24/16 05:06 ICD10 Worksheet Patient Problems: Problems Problem Status Onset Hypoxia Acute Pneumonia Acute
--- NOTE | 2016-06-11 16:00 | SOAPPROG ---
SOAP Progress Note Assessment/Plan: Assessment: 81yo male s/p repair/washout of duodenal ulcer, readmitted for acute renal failure, intraabdominal abscess s/p IR drainage during this stay. Acute respiratory failure. Recently started on regular diet, denies significant pain, drain output decreased to approx 30cc/24hrs PE alert, on room air appears comfortable Abdomen very soft to palpation, drain in place with scant serous drainage Lower ext no edema Plan: will continue to monitor drain output with advancing diet saw pt with Dr Salcedo 05/05/16 13:49 05/19/16 12:49 06/02/16 10:51 06/10/16 12:25 06/10/16 12:26 06/10/16 12:27 06/11/16 15:59 Objective: Vital Signs Temp Pulse Resp BP Pulse Ox 36.9 C 96 16 126/78 H 96 06/11/16 15:47 06/11/16 15:47 06/11/16 15:47 06/11/16 15:47 06/11/16 15:47 Laboratory Results 06/07/16 05:00 06/11/16 05:35 06/10/16 06/11/16 06/12/16 05:59 05:59 05:59 Intake Total 355 550 Output Total 955 1135 Balance -600 -585 PT 15.0 SEC (12.0-15.0) 05/24/16 05:06 INR 1.18 (0.83-1.16) H 05/24/16 05:06 ICD10 Worksheet Patient Problems: Problems Problem Status Onset Hypoxia Acute Pneumonia Acute
[2016-06-11] MEDS ORDERED: AMPICILLIN/SULBACTAM 3 GM in NS 100 ML IV SCH (17:00)
[2016-06-11] MEDS: AMPICILLIN/SULBACTAM 3 GM in NS 100 ML IV SCH (20:03)
[2016-06-11] MEDS ORDERED: HEPARIN 50,000 UNIT/10 ML VIAL ONE (20:32)
[2016-06-12] MEDS: HEPARIN 5,000 UNIT/0.5 ML SYR SC SCH ×3 (05:32→21:16)
[2016-06-12] MEDS: SODIUM BICARBONATE 650 MG TAB PO SCH ×4 (05:32→21:16)
[2016-06-12 07:05] LABS: ANION GAP 12 mEq/L (8-16); CALCIUM 9.4 mg/dL (8.5-10.4); CARBON DIOXIDE 26 mEq/l (22-31); CHLORIDE 101 mEq/L (97-110); CREATININE 3.4 mg/dL (0.7-1.3); GLOMERULAR FILTRATION RATE 18; GLUCOSE 97 mg/dL (70-100); POTASSIUM 3.9 mEq/L (3.5-5.2); SODIUM 139 mEq/L (134-144)
[2016-06-12] MEDS: PANTOPRAZOLE SODIUM 40 MG TAB PO SCH ×2 (09:27→21:16)
--- NOTE | 2016-06-12 09:56 | SOAPPROG ---
SOAP Progress Note Assessment/Plan: Assessment:Plan: ARF-stable s/p dialysis yesterday -tolerated treatment well -lytes and volume status are okay -remains with good urine output -follow for recovery Access-stable Edema-improved 06/12/16 09:53 Subjective: hiccups Objective: Vital Signs Temp Pulse Resp BP Pulse Ox 37.3 C 99 16 129/91 H 95 06/12/16 08:00 06/12/16 08:00 06/12/16 08:00 06/12/16 08:00 06/12/16 08:00 Laboratory Results 06/07/16 05:00 06/12/16 06:35 06/11/16 06/12/16 06/13/16 05:59 05:59 05:59 Intake Total 550 1205 Output Total 1135 800 Balance -585 405 PT 15.0 SEC (12.0-15.0) 05/24/16 05:06 INR 1.18 (0.83-1.16) H 05/24/16 05:06 Physical Exam - Physical Exam General Appearance: alert, no apparent distress EENT: normal ENT inspection Neck: normal inspection Respiratory: rales (L base, otherwise he has cleared nicely) Cardiac/Chest: regular rate, rhythm, systolic murmur (1/6) Abdomen: normal bowel sounds Extremities: swelling (1+ edema above level of socks) ICD10 Worksheet Patient Problems: Problems Problem Status Onset Hypoxia Acute Pneumonia Acute
[2016-06-12] MEDS ORDERED: POLYETHYLENE GLYCOL 3350 17 GM PKT PO PRN (10:11)
[2016-06-12] MEDS ORDERED: LACTULOSE 20 GM/30 ML UDCUP PO PRN (10:11)
[2016-06-12] MEDS ORDERED: BISACODYL 10 MG SUPP PR PRN (10:11)
--- NOTE | 2016-06-12 10:13 | HOSPPROG ---
Hospitalist Progress Note Assessment/Plan: Mr Mcdaniel is a 81 yo M w recent complex hospital stay for ecoli bacteremia 2/2 choledocholithiasis and duodenal perforation s/p ERCP. He was admitted on May 04 with acute renal failure and peritonitis. # MILLA - 2/2 ATN- tunneled HD cath placed - receiving HD - creat is 3.4/ should recover/has good urine output - continue sodium bicarb # polymicrobial Peritonitis from duodenal perforation/intra-abdominal abscess - persistent duodenal leak now s/p repair with omental patch / upper gi looks okay/ tolerating food - Unasyn today/ fluconazole- - will likely dc on Augmentin - ID and surgery following. #constipation -bowel protocol/no MOM #right thigh numbness/intermittent -no further complaints #insomnia -trial of melatonin -had some significant confusion earlier in his stay # Acute hypoxic respiratory failure/ daptomycin pneumonitis- now resolved -on room air -daptomycin listed as an allergy # Anemia of chronic disease - multifactorial - monitor closely #Lightheadedness -resolved # sepsis 2/2 intraabdominal source- resolved # Basilic vein superficial thrombosis. PICC removed, no systemic AC # Acute encephalopathy- resolved # Thrombocytopenia- - HIT panel neg - resolved # Drug rash- 2/2 levofloxacin -Levaquin is now listed as an allergy # Atrial fibrillation w/ RVR- -none further/ was treated w Diltazem gtt # Diet. TPN stopped on 06/11, calorie count # Prophylaxis. High risk patient, heparin subcu # Code. Full code # Disposition- pending Subjective: shaneka is c/o being bloated and worried about being constipated. Objective: Vital Signs Temp Pulse Resp BP Pulse Ox 37.3 C 99 16 129/91 H 95 06/12/16 08:00 06/12/16 08:00 06/12/16 08:00 06/12/16 08:00 06/12/16 08:00 Laboratory Results 06/07/16 05:00 06/12/16 06:35 06/11/16 06/12/16 06/13/16 05:59 05:59 05:59 Intake Total 550 1205 Output Total 1135 800 Balance -585 405 PT 15.0 SEC (12.0-15.0) 05/24/16 05:06 INR 1.18 (0.83-1.16) H 03/13/17 05:06 - Physical Exam Constitutional: no apparent distress, chronically ill appearing, other (thin) Eyes: PERRL Ears, Nose, Mouth, Throat: hearing normal Cardiovascular: regular rate and rhythym Respiratory: no respiratory distress Gastrointestinal: normoactive bowel sounds, distension (slight) Skin: warm, No normal color (pale) Musculoskeletal: generalized weakness Neurologic: AAOx3 Psychiatric: interacting appropriately ICD10 Worksheet Patient Problems: Problems Problem Status Onset Hypoxia Acute Pneumonia Acute
--- NOTE | 2016-06-12 12:38 | SOAPPROG ---
SOAP Progress Note Assessment/Plan: Assessment: 81 year old with perforated duodenal ulcer s/p pilar patch repair. Imaging with no evidence of fistula or leak. Persistent abscess on antibiotics. ARF getting dialysis. Improving. S: No complaints O: Sitting up in chair, family at bedside CHARLIE with purulent output - Abdomen soft and non tender Plan: 05/29/16 23:20 05/30/16 15:22 06/12/16 12:37 Objective: Vital Signs Temp Pulse Resp BP Pulse Ox 37.3 C 99 16 129/91 H 95 06/12/16 08:00 06/12/16 08:00 06/12/16 08:00 06/12/16 08:00 06/12/16 08:00 Laboratory Results 06/07/16 05:00 06/12/16 06:35 06/11/16 06/12/16 06/13/16 05:59 05:59 05:59 Intake Total 550 1205 25 Output Total 1135 800 20 Balance -585 405 5 PT 15.0 SEC (12.0-15.0) 05/24/16 05:06 INR 1.18 (0.83-1.16) H 05/24/16 05:06 ICD10 Worksheet Patient Problems: Problems Problem Status Onset Hypoxia Acute Pneumonia Acute
[2016-06-12] MEDS: MELATONIN 3 MG TAB PO PRN (21:16)
[2016-06-12] MEDS: AMPICILLIN/SULBACTAM 3 GM in NS 100 ML IV SCH (21:17)
[2016-06-12] MEDS: SENNOSIDES/DOCUSATE SODIUM TAB PO SCH (21:17)
[2016-06-13] MEDS: SODIUM BICARBONATE 650 MG TAB PO SCH ×4 (05:47→20:45)
[2016-06-13] MEDS: HEPARIN 5,000 UNIT/0.5 ML SYR SC SCH ×3 (05:47→20:45)
[2016-06-13 05:54] LABS: % IMMATURE GRANULYOCYTES 0.6 % (0.0-1.1); ABSOLUTE IMMATURE GRANULOCYTES 0.07 10^3/uL (0.00-0.10); ADD DIFF? NO; ADD MORPH? NO; ADD SCAN? NO; ATYPICAL LYMPHOCYTE FLAG 20 (0-99); FRAGMENT RBC FLAG 0 (0-99); HEMOGLOBIN 13.6 g/dL (13.7-17.5); LEFT SHIFT FLG 0 (0-99); LIPEMIA HEMOLYSIS FLAG 80 (0-99); MEAN CELL HEMOGLOBIN 31.3 pg (27.9-34.1); MEAN CELL HEMOGLOBIN CONCENTR. 32.4 g/dL (32.4-36.7); MEAN CELL VOLUME 96.8 fL (81.5-99.8); MEAN PLATELET VOLUME 9.9 fL (8.7-11.7); PLATELET CLUMPS FLAG 0 (0-99); PLATELET COUNT 330 10^3/uL (150-400); RED BLOOD CELL COUNT 4.34 10^6/uL (4.40-6.38); RED CELL DISTRIBUTION WIDTH 14.1 % (11.5-15.2)
--- NOTE | 2016-06-13 09:18 | HOSPPROG ---
Hospitalist Progress Note Assessment/Plan: Mr Mcdaniel is a 81 yo M w recent complex hospital stay for ecoli bacteremia 2/2 choledocholithiasis and duodenal perforation s/p ERCP. He was admitted on May 04 with acute renal failure and peritonitis. # MILLA - 2/2 ATN- tunneled HD cath placed - receiving HD - creat is 1.1 /had dialysis 2 days ago/ ?if this is accurate with a sudden drop/ orders to recheck - continue sodium bicarb # polymicrobial Peritonitis from duodenal perforation/intra-abdominal abscess - persistent duodenal leak now s/p repair with omental patch / upper gi looks okay/ tolerating food - Unasyn today/ fluconazole- - will likely dc on Augmentin #tachycardia -will check 12 lead now #shortness of breath -O2 sats on room air are stable -will get a chest xray to further eval -no CTA due to renal failure -will further eval #constipation -bowel protocol/no MOM #right thigh numbness/intermittent -no further complaints #insomnia -trial of melatonin -had some significant confusion earlier in his stay # Acute hypoxic respiratory failure/ daptomycin pneumonitis- now resolved -on room air -daptomycin listed as an allergy # Anemia of chronic disease - multifactorial - epo - labs much improved/will follow #Lightheadedness -resolved # sepsis 2/2 intraabdominal source- resolved # Basilic vein superficial thrombosis. PICC removed, no systemic AC # Acute encephalopathy- resolved # Thrombocytopenia- - HIT panel neg - resolved # Drug rash- 2/2 levofloxacin -Levaquin is now listed as an allergy # Atrial fibrillation w/ RVR- -none further/ was treated w Diltazem gtt # Diet. TPN stopped on 06/11, calorie count # Prophylaxis. High risk patient, heparin subcu # Code. Full code # Disposition- pending #Plan: repeat renal function panel, chest xray and ekg now. Plan of care discussed landon Banks and his daughter & grand-daughters. Subjective: Darren is c/o feeling tired, short of breath with activity. Objective: Vital Signs Temp Pulse Resp BP Pulse Ox 36.9 C 102 H 14 149/95 H 96 06/13/16 08:00 06/13/16 08:00 06/13/16 08:00 06/13/16 08:00 06/13/16 08:00 Laboratory Results 06/13/16 05:30 06/13/16 05:30 06/12/16 06/13/16 06/14/16 05:59 05:59 05:59 Intake Total 1205 235 Output Total 800 30 Balance 405 205 PT 15.0 SEC (12.0-15.0) 05/24/16 05:06 INR 1.18 (0.83-1.16) H 05/24/16 05:06 - Physical Exam Constitutional: not in pain, chronically ill appearing Eyes: PERRL Ears, Nose, Mouth, Throat: ears appear normal Respiratory: no respiratory distress Gastrointestinal: normoactive bowel sounds, other (CHARLIE with increase purulence) Skin: warm Musculoskeletal: generalized weakness Neurologic: AAOx3 Psychiatric: interacting appropriately ICD10 Worksheet Patient Problems: Problems Problem Status Onset Hypoxia Acute Pneumonia Acute
[2016-06-13] MEDS ORDERED: AMPICILLIN/SULBACTAM 3 GM in NS 100 ML IV SCH (09:30)
--- NOTE | 2016-06-13 09:46 | CPEKG ---
Heart Rate: 103 RR Interval: 583 P-R Interval: 144 QRSD Interval: 94 QT Interval: 348 QTC Interval: 456 P [place]: 62 QRS [place]: 74 T Wave [place]: 30 EKG Severity - OTHERWISE NORMAL ECG - EKG Impression: SINUS TACHYCARDIA EKG Impression: Probable left atrial abnormality EKG Impression: Right ventricular conduction defect EKG Impression: No PACs since May 20, 2016 Electronically Signed By: Estrada Sampson 13-Jun-2016 12:26:12
[2016-06-13 10:02] LABS: ALBUMIN 3.6 g/dL (3.5-5.0); ANION GAP 16 mEq/L (8-16); CALCIUM 9.9 mg/dL (8.5-10.4); CARBON DIOXIDE 23 mEq/l (22-31); CHLORIDE 101 mEq/L (97-110); CREATININE 4.3 mg/dL (0.7-1.3); GLOMERULAR FILTRATION RATE 13; GLUCOSE 120 mg/dL (70-100); POTASSIUM 3.6 mEq/L (3.5-5.2); SODIUM 140 mEq/L (134-144)
[2016-06-13] MEDS: PANTOPRAZOLE SODIUM 40 MG TAB PO SCH ×2 (11:29→20:45)
[2016-06-13] MEDS: SENNOSIDES/DOCUSATE SODIUM TAB PO SCH ×2 (11:30→20:45)
[2016-06-13] MEDS: ALTEPLASE 2 MG VIAL IVP PRN ×2 (11:39→13:58)
--- NOTE | 2016-06-13 12:33 | SOAPPROG ---
SOAP Progress Note Assessment/Plan: Assessment:Plan: ARF-stable s/p dialysis Tuesday -tolerated treatment well -lytes and volume status are okay -remains with good urine output -follow for recovery Access-stable Edema-improved 06/13/16 12:28 Subjective: stable overnite Objective: Vital Signs Temp Pulse Resp BP Pulse Ox 36.9 C 102 H 14 149/95 H 96 06/13/16 08:00 06/13/16 08:00 06/13/16 08:00 06/13/16 08:00 06/13/16 08:00 Laboratory Results 06/13/16 05:30 06/13/16 09:00 06/12/16 06/13/16 06/14/16 05:59 05:59 05:59 Intake Total 1205 235 Output Total 800 30 Balance 405 205 PT 15.0 SEC (12.0-15.0) 05/24/16 05:06 INR 1.18 (0.83-1.16) H 05/24/16 05:06 Physical Exam - Physical Exam General Appearance: WD/WN, alert, no apparent distress EENT: normal ENT inspection Neck: normal inspection Respiratory: lungs clear, normal breath sounds, decreased breath sounds (L base up to maybe 1/4) Cardiac/Chest: regular rate, rhythm, systolic murmur (1/6) Extremities: swelling ICD10 Worksheet Patient Problems: Problems Problem Status Onset Hypoxia Acute Pneumonia Acute
[2016-06-13] MEDS: MELATONIN 3 MG TAB PO PRN (20:57)
[2016-06-14 05:06] LABS: ANION GAP 14 mEq/L (8-16); CALCIUM 9.1 mg/dL (8.5-10.4); CARBON DIOXIDE 23 mEq/l (22-31); CHLORIDE 104 mEq/L (97-110); CREATININE 4.6 mg/dL (0.7-1.3); GLOMERULAR FILTRATION RATE 12; GLUCOSE 79 mg/dL (70-100); MAGNESIUM 1.3 mg/dL (1.6-2.3); POTASSIUM 3.6 mEq/L (3.5-5.2); SODIUM 141 mEq/L (134-144)
[2016-06-14 05:34] LABS: % IMMATURE GRANULYOCYTES 1.3 % (0.0-1.1); ABSOLUTE IMMATURE GRANULOCYTES 0.08 10^3/uL (0.00-0.10); ADD DIFF? NO; ADD MORPH? NO; ADD SCAN? NO; ATYPICAL LYMPHOCYTE FLAG 20 (0-99); FRAGMENT RBC FLAG 0 (0-99); HEMATOCRIT 21.6 % (40.0-51.0); LEFT SHIFT FLG 10 (0-99); LIPEMIA HEMOLYSIS FLAG 80 (0-99); MEAN CELL HEMOGLOBIN 31.3 pg (27.9-34.1); MEAN CELL HEMOGLOBIN CONCENTR. 32.4 g/dL (32.4-36.7); MEAN CELL VOLUME 96.4 fL (81.5-99.8); MEAN PLATELET VOLUME 9.5 fL (8.7-11.7); PLATELET CLUMPS FLAG 0 (0-99); PLATELET COUNT 172 10^3/uL (150-400); RED BLOOD CELL COUNT 2.24 10^6/uL (4.40-6.38)
[2016-06-14] MEDS: SODIUM BICARBONATE 650 MG TAB PO SCH ×2 (06:15→11:52)
[2016-06-14] MEDS: HEPARIN 5,000 UNIT/0.5 ML SYR SC SCH ×3 (06:15→21:59)
[2016-06-14] MEDS: PANTOPRAZOLE SODIUM 40 MG TAB PO SCH ×2 (08:59→21:58)
[2016-06-14] MEDS: AMPICILLIN/SULBACTAM 3 GM in NS 100 ML IV SCH (08:59)
[2016-06-14] MEDS: SENNOSIDES/DOCUSATE SODIUM TAB PO SCH ×2 (09:49→21:58)
--- NOTE | 2016-06-14 10:35 | SOAPPROG ---
SOAP Progress Note Assessment/Plan: Assessment/Plan 81yo M c duodenal perf s/p ex lap, repair and washout x2. Persistent leak - Reviewed events of the last week. Repeat swallow neg for leak, diet advanced to softs which is well tolerated - CHARLIE continues to drain purulent material, slowing. - Receiving intermittent HD, kidney function improving - Working with PT/OT, hoping for inpatient rehab placement. - Will d/c J tube at bedside tomorrow. Otherwise looking great. 05/06/16 13:11 05/07/16 12:00 05/07/16 12:01 05/08/16 12:18 05/09/16 09:10 05/10/16 09:26 05/13/16 13:09 05/14/16 11:20 05/15/16 11:09 05/16/16 10:43 05/17/16 11:28 05/18/16 15:47 05/20/16 11:01 05/21/16 16:44 05/24/16 11:44 05/25/16 10:13 05/27/16 16:19 05/28/16 08:50 05/31/16 13:32 06/01/16 14:44 06/03/16 14:06 06/14/16 10:33 Subjective: In good spirits, worked diligently with therapy earlier. Still having some SOB with activity, some lightheadedness. Objective: Vital Signs Temp Pulse Resp BP Pulse Ox 37 C 98 16 147/92 H 96 06/14/16 08:00 06/14/16 08:00 06/14/16 08:00 06/14/16 08:00 06/14/16 08:00 Laboratory Results 06/14/16 05:00 06/14/16 04:30 06/13/16 06/14/16 06/15/16 05:59 05:59 05:59 Intake Total 235 500 Output Total 30 40 Balance 205 460 PT 15.0 SEC (12.0-15.0) 05/24/16 05:06 INR 1.18 (0.83-1.16) H 05/24/16 05:06 ICD10 Worksheet Patient Problems: Problems Problem Status Onset Hypoxia Acute Pneumonia Acute
--- NOTE | 2016-06-14 11:46 | HOSPPROG ---
Hospitalist Progress Note Assessment/Plan: Mr Mcdaniel is a 81 yo M w recent complex hospital stay for ecoli bacteremia 2/2 choledocholithiasis and duodenal perforation s/p ERCP. He was admitted on May 04 with acute renal failure and peritonitis. Met with patient and his daughter with Dr Silverman. # MILLA - 2/2 ATN- tunneled HD cath placed - receiving HD - creat is 4.6/ patient needing intermittent dialysis - continue sodium bicarb # polymicrobial Peritonitis from duodenal perforation/intra-abdominal abscess - persistent duodenal leak now s/p repair with omental patch / upper gi looks okay/ tolerating food - Unasyn today/ fluconazole- - will likely dc on Augmentin #tachycardia -evaluated 12 lead/ show sinus tachycardia -tachycardia better today #shortness of breath -O2 sats on room air are stable -chest xray stable - suspect this is from being deconditioned #constipation -bowel protocol/no MOM #right thigh numbness/intermittent -no further complaints #insomnia -trial of melatonin -had some significant confusion earlier in his stay # Acute hypoxic respiratory failure/ daptomycin pneumonitis- now resolved -on room air -daptomycin listed as an allergy # Anemia of chronic disease - multifactorial - epo #Lightheadedness -resolved # sepsis 2/2 intraabdominal source- resolved # Basilic vein superficial thrombosis. PICC removed, no systemic AC # Acute encephalopathy- resolved # Thrombocytopenia- - HIT panel neg - resolved # Drug rash- 2/2 levofloxacin -Levaquin is now listed as an allergy # Atrial fibrillation w/ RVR- -none further/ was treated w Diltazem gtt # Diet. TPN stopped on 06/11, calorie count # Prophylaxis. High risk patient, heparin subcu # Code. Full code # Disposition- pending #Plan: spoke with CM who is looking at possible placement/ will need intermittent dialysis/ order left for no vital signs at night, and daily weights to be done after he wakes up. Also, was on a dysphagia Diet 3 reg diet / changed to regular diet. Subjective: Darren is frustrated about being woken up for vital signs and weights. Appetite is overall good. Concerned about his stamina and getting tired easily. Objective: Vital Signs Temp Pulse Resp BP Pulse Ox 37 C 98 16 147/92 H 96 06/14/16 08:00 06/14/16 08:00 06/14/16 08:00 06/14/16 08:00 06/14/16 08:00 Laboratory Results 06/14/16 05:00 06/14/16 04:30 06/13/16 06/14/16 06/15/16 05:59 05:59 05:59 Intake Total 235 500 Output Total 30 40 Balance 205 460 PT 15.0 SEC (12.0-15.0) 05/24/16 05:06 INR 1.18 (0.83-1.16) H 05/24/16 05:06 - Physical Exam Constitutional: chronically ill appearing, other (thin) Eyes: PERRL Ears, Nose, Mouth, Throat: hearing normal Cardiovascular: regular rate and rhythym, No tachycardia Respiratory: no respiratory distress, no rales or rhonchi Gastrointestinal: normoactive bowel sounds Skin: warm, No normal color (pale) Musculoskeletal: full muscle strength, generalized weakness Neurologic: AAOx3 Psychiatric: interacting appropriately, not anxious ICD10 Worksheet Patient Problems: Problems Problem Status Onset Hypoxia Acute Pneumonia Acute
--- NOTE | 2016-06-14 12:26 | SOAPPROG ---
SOAP Progress Note Assessment/Plan: Assessment/Plan: MILLA: previously oliguric, likely ATN. Pt now with good UOP even without Lasix now, may be starting to recover. Lytes ok, volume status stable. However, his Cr and BUN have continued to uptrend. He was last dialyzed on Tuesday. - No emergent need for HD today. - Will continue to monitor daily for HD needs. - Will check renal function panel daily. - Avoid MOM, morphine, NSAIDs, contrast, aminoglycosides, fleets, and other nephrotoxins. Anemia: pt getting epo. Subjective: No acute events overnight. Pt feeling well overall, plans to walk around more. Objective: Vital Signs Temp Pulse Resp BP Pulse Ox 37 C 98 16 147/92 H 96 06/14/16 08:00 06/14/16 08:00 06/14/16 08:00 06/14/16 08:00 06/14/16 08:00 Laboratory Results 06/14/16 05:00 06/14/16 04:30 06/13/16 06/14/16 06/15/16 05:59 05:59 05:59 Intake Total 235 500 Output Total 30 40 Balance 205 460 PT 15.0 SEC (12.0-15.0) 05/24/16 05:06 INR 1.18 (0.83-1.16) H 05/24/16 05:06 General: alert and oriented, no acute distress Eyes; EOMI, PERRL OP: CLear CV: RRR Resp: nonlabored respirations on RA Abd: Soft, NT Ext; +1 edema BLE Neuro: CN II-XII grossly intact, no asterixis Psych: cooperative, appropriate mood and affect ICD10 Worksheet Patient Problems: Problems Problem Status Onset Hypoxia Acute Pneumonia Acute
--- NOTE | 2016-06-14 18:09 | PCMIDPN ---
Assessment/Plan: Assessment: Continued abdominal fluid collection status post duodenal leak. CHARLIE drain continues to put out a straw colored creamy fluid. He appears to be close to his baseline but he has lost a lot of strength in the meantime. Plan to continue the IV unasyn another 9 days then probable step down to Augmentin while the drain is in place. Plan: 1. Continue Unasyn for now -- six week course as outlined by Dr. Tejada. 2. Follow clinical course. Subjective: Patient is sitting up in chair. More conversant today. No new complaints. Just wants to improve with strength and endurance. Tired of being hospitalized. Objective: unasyn #5 (abx #25) Vital Signs Temp Pulse Resp BP Pulse Ox 36.9 C 90 16 149/90 H 95 06/14/16 18:00 06/14/16 18:00 06/14/16 18:00 06/14/16 18:00 06/14/16 18:00 Laboratory Results 06/14/16 05:00 06/14/16 04:30 06/13/16 06/14/16 06/15/16 05:59 05:59 05:59 Intake Total 235 500 340 Output Total 30 40 355 Balance 205 460 -15 - Physical Exam General Appearance: WD/WN, alert, no apparent distress, thin, non-toxic Respiratory: lungs clear, normal breath sounds, No respiratory distress Cardiac/Chest: regular rate, rhythm, No tachycardia Abdomen: non-tender, soft, other (CHARLIE drain in place), No mass Skin: normal color, warm/dry, No rash Neuro/Psych: alert, normal mood/affect, oriented x 3 ICD10 Worksheet Patient Problems: Problems Problem Status Onset Hypoxia Acute Pneumonia Acute
[2016-06-14] MEDS: MELATONIN 3 MG TAB PO PRN (21:58)
[2016-06-14] MEDS: ACETAMINOPHEN 325 MG TAB PO PRN (22:18)
[2016-06-15 06:10] LABS: HEMATOCRIT 27.3 % (40.0-51.0); HEMOGLOBIN 8.9 g/dL (13.7-17.5)
[2016-06-15] MEDS: HEPARIN 5,000 UNIT/0.5 ML SYR SC SCH ×3 (06:25→21:06)
[2016-06-15 06:26] LABS: ANION GAP 17 mEq/L (8-16); CALCIUM 9.4 mg/dL (8.5-10.4); CARBON DIOXIDE 22 mEq/l (22-31); CHLORIDE 103 mEq/L (97-110); CREATININE 4.9 mg/dL (0.7-1.3); GLOMERULAR FILTRATION RATE 12; GLUCOSE 84 mg/dL (70-100); POTASSIUM 3.9 mEq/L (3.5-5.2); SODIUM 142 mEq/L (134-144)
[2016-06-15] MEDS: SENNOSIDES/DOCUSATE SODIUM TAB PO SCH ×2 (08:47→21:27)
[2016-06-15] MEDS: PANTOPRAZOLE SODIUM 40 MG TAB PO SCH ×2 (08:53→21:07)
[2016-06-15] MEDS: AMPICILLIN/SULBACTAM 3 GM in NS 100 ML IV SCH (08:54)
--- NOTE | 2016-06-15 12:06 | HOSPPROG ---
Hospitalist Progress Note Assessment/Plan: Mr Mcdaniel is a 81 yo M w recent complex hospital stay for ecoli bacteremia 2/2 choledocholithiasis and duodenal perforation s/p ERCP. He was admitted on May 04 with acute renal failure and peritonitis. # MILLA - 2/2 ATN- tunneled HD cath placed - receiving HD - dialysis today/ patient needing intermittent dialysis - continue sodium bicarb # polymicrobial Peritonitis from duodenal perforation/intra-abdominal abscess - persistent duodenal leak now s/p repair with omental patch / upper gi looks okay/ eating well - Unasyn today/ fluconazole- - will likely dc on Augmentin #tachycardia -evaluated 12 lead/ show sinus tachycardia -not tachycardic today #shortness of breath -O2 sats on room air are stable -chest xray stable - suspect this is from being deconditioned #constipation -bowel protocol/no MOM #right thigh numbness/intermittent -no further complaints #insomnia -better/ no vital signs during the night # Acute hypoxic respiratory failure/ daptomycin pneumonitis- now resolved -on room air -daptomycin listed as an allergy # Anemia of chronic disease - multifactorial - epo - was given a unit of PRBC's yesterday with improvement #Lightheadedness -resolved # sepsis 2/2 intraabdominal source- resolved # Basilic vein superficial thrombosis. PICC removed, no systemic AC # Acute encephalopathy- resolved # Thrombocytopenia- - HIT panel neg - resolved # Drug rash- 2/2 levofloxacin -Levaquin is now listed as an allergy # Atrial fibrillation w/ RVR- -none further/ was treated w Diltazem gtt # Diet. TPN stopped on 06/11, eating well # Prophylaxis. High risk patient, heparin subcu # Code. Full code # Disposition- pending #Plan: CM looking at placement/ needs intermittent dialysis/ poss labs could be drawn daily and sent to [facility] for further eval by nephrology Subjective: Darren is eating well/ still tired and not feeling like he has much endurance. Objective: Vital Signs Temp Pulse Resp BP Pulse Ox 36.9 C 82 16 152/98 H 96 06/15/16 07:31 06/15/16 07:31 06/15/16 07:31 06/15/16 07:31 06/15/16 07:31 Laboratory Results 06/15/16 06:00 06/15/16 06:00 06/14/16 06/15/16 06/16/16 05:59 05:59 05:59 Intake Total 500 340 360 Output Total 40 915 200 Balance 460 -575 160 PT 15.0 SEC (12.0-15.0) 05/24/16 05:06 INR 1.18 (0.83-1.16) H 05/24/16 05:06 - Physical Exam Constitutional: no apparent distress, chronically ill appearing Eyes: PERRL Ears, Nose, Mouth, Throat: hearing normal Cardiovascular: regular rate and rhythym Respiratory: no respiratory distress Gastrointestinal: normoactive bowel sounds, other (etienne drain w minimal purulent drainage) Skin: warm Musculoskeletal: no muscle tenderness, generalized weakness Neurologic: AAOx3 Psychiatric: interacting appropriately ICD10 Worksheet Patient Problems: Problems Problem Status Onset Hypoxia Acute Pneumonia Acute
--- NOTE | 2016-06-15 12:47 | SOAPPROG ---
SOAP Progress Note Assessment/Plan: Assessment: 1. MILLA Non oliguric. Has tunneled cath. HD today. Will likely need HD as outpatient with Acute status for awhile. 2. GI No eating. Doing better. 3. DC Planning includes SNF and HD. 06/09/16 12:44 06/15/16 12:45 Subjective: In good spirits Objective: Vital Signs Temp Pulse Resp BP Pulse Ox 36.9 C 82 16 152/98 H 96 06/15/16 07:31 06/15/16 07:31 06/15/16 07:31 06/15/16 07:31 06/15/16 07:31 Microbiology 05/20/16 04:05 Mycobacterial Smear (TROY) - Final Bronchial [place] - Bilateral Lobes Laboratory Results 06/15/16 06:00 06/15/16 06:00 06/14/16 06/15/16 06/16/16 05:59 05:59 05:59 Intake Total 500 340 360 Output Total 40 915 200 Balance 460 -575 160 PT 15.0 SEC (12.0-15.0) 05/24/16 05:06 INR 1.18 (0.83-1.16) H 05/24/16 05:06 Physical Exam - Physical Exam General Appearance: no apparent distress Respiratory: lungs clear Cardiac/Chest: regular rate, rhythm Extremities: pedal edema Neuro/Psych: oriented x 3 ICD10 Worksheet Patient Problems: Problems Problem Status Onset Hypoxia Acute Pneumonia Acute
--- NOTE | 2016-06-15 14:44 | SOAPPROG ---
SOAP Progress Note Assessment/Plan: Assessment/Plan 81yo M c duodenal perf s/p ex lap, repair and washout x2. Persistent leak - Tolerating diet, abd remains soft. CHARLIE remains with persistent purulent output - in HD currently, will remove J tube either after or tomorrow - Working on placement, should have better idea what HD needs will be as we move forward - Doing well 05/06/16 13:11 05/07/16 12:00 05/07/16 12:01 05/08/16 12:18 05/09/16 09:10 05/10/16 09:26 05/13/16 13:09 05/14/16 11:20 05/15/16 11:09 05/16/16 10:43 05/17/16 11:28 05/18/16 15:47 05/20/16 11:01 05/21/16 16:44 05/24/16 11:44 05/25/16 10:13 05/27/16 16:19 05/28/16 08:50 05/31/16 13:32 06/01/16 14:44 06/03/16 14:06 06/14/16 10:33 06/15/16 14:43 Subjective: Remains in good spirits, good appetite Objective: Vital Signs Temp Pulse Resp BP Pulse Ox 36.9 C 82 16 152/98 H 96 06/15/16 07:31 06/15/16 07:31 06/15/16 07:31 06/15/16 07:31 06/15/16 07:31 Microbiology 05/20/16 04:05 Mycobacterial Smear (TROY) - Final Bronchial [place] - Bilateral Lobes Laboratory Results 06/15/16 06:00 06/15/16 06:00 06/14/16 06/15/16 06/16/16 05:59 05:59 05:59 Intake Total 500 340 360 Output Total 40 915 200 Balance 460 -575 160 PT 15.0 SEC (12.0-15.0) 05/24/16 05:06 INR 1.18 (0.83-1.16) H 05/24/16 05:06 ICD10 Worksheet Patient Problems: Problems Problem Status Onset Hypoxia Acute Pneumonia Acute
--- NOTE | 2016-06-15 17:22 | PCMIDPN ---
Assessment/Plan: 81 Year old male with complex hospital course generally getting significantly better, on regular diet now #Polymicrobial peritonitis from duodenal perforation. No leak, but persistent drainage from CHARLIE ~40/day (no change with diet advancement). WBC normal, AF --antibiotics through 06/24 and re-assess at that time. 06/24 will be 6 weeks. May extend a bit until can be followed up in ID clinic --change to PO Augmentin, renal dose 500/125mg Daily, give after dialysis on dialysis days. --dc unasyn today # ARF - HD performed today meds Unasyn 3gm IV daily Microbiology 05/04 blood cultures (2): Neg 05/08 C diff negative 05/20 BAL neg 05/20 blood cx (2) neg Subjective: had HD today enjoying eating regular diet Objective: Vital Signs Temp Pulse Resp BP Pulse Ox 36.9 C 82 16 152/98 H 96 06/15/16 07:31 06/15/16 07:31 06/15/16 07:31 06/15/16 07:31 06/15/16 07:31 Microbiology 05/20/16 04:05 Mycobacterial Smear (TROY) - Final Bronchial [place] - Bilateral Lobes Laboratory Results 06/15/16 06:00 06/15/16 06:00 06/14/16 06/15/16 06/16/16 05:59 05:59 05:59 Intake Total 500 340 660 Output Total 40 915 2050 Balance 957 -216 -3695 - Physical Exam General Appearance: alert, no apparent distress Respiratory: lungs clear Neck: supple Cardiac/Chest: regular rate, rhythm Abdomen: non-tender, soft, other (R CHARLIE drain with brown cloudy material; J tube site c/d/i) Skin: No rash Neuro/Psych: alert, normal mood/affect, oriented x 3 - Line/s LUE PICC Lines: No drainage, No erythema Kim Lines: other (R chest wall), No drainage, No erythema ICD10 Worksheet Patient Problems: Problems Problem Status Onset Hypoxia Acute Pneumonia Acute
[2016-06-15] MEDS: AMOX/CLAVULANATE 500/125 MG TAB PO SCH (18:06)
--- NOTE | 2016-06-15 18:42 | WOCRNPDOC ---
WOCRN Advanced Assessment Note - Skin Integrity Problem, Advanced Assess Scrotum Dressing Type: Open to Air Wound Bed Constitution: Healed Skin Integrity Problem Comment: Visualized ISRA Osborne. [place], dry, intact skin. Staff may continue aunm care per protocol PRN, and re-consult diet supervisor if new concerns. Buttock Dressing Type: Open to Air Skin Integrity Problem Comment: Visualized ISRA Osborne. [place], dry, intact skin. Staff may continue anum care per protocol PRN, and re-consult diet supervisor if new concerns.
[2016-06-15] MEDS: MELATONIN 3 MG TAB PO PRN (21:07)
[2016-06-15] MEDS: ACETAMINOPHEN 325 MG TAB PO PRN (21:07)
[2016-06-15] MEDS ORDERED: HEPARIN 50,000 UNIT/10 ML VIAL ONE (22:02)
[2016-06-16] MEDS: HEPARIN 5,000 UNIT/0.5 ML SYR SC SCH ×3 (06:12→21:26)
[2016-06-16 06:59] LABS: ANION GAP 12 mEq/L (8-16); CALCIUM 9.5 mg/dL (8.5-10.4); CARBON DIOXIDE 27 mEq/l (22-31); CHLORIDE 102 mEq/L (97-110); CREATININE 3.2 mg/dL (0.7-1.3); GLOMERULAR FILTRATION RATE 19; GLUCOSE 88 mg/dL (70-100); MAGNESIUM 1.5 mg/dL (1.6-2.3); SODIUM 141 mEq/L (134-144)
[2016-06-16] MEDS: AMOX/CLAVULANATE 500/125 MG TAB PO SCH (09:00)
[2016-06-16] MEDS: PANTOPRAZOLE SODIUM 40 MG TAB PO SCH ×2 (09:00→21:26)
[2016-06-16] MEDS: SENNOSIDES/DOCUSATE SODIUM TAB PO SCH ×2 (09:02→21:54)
--- NOTE | 2016-06-16 12:37 | PDIAF ---
- Diagnosis Diagnosis: peritonitis Code Status: Full Code - Medication Management Discharge Medications: Medications to Continue on Transfer Acetaminophen [Tylenol 325mg (*)] 650 mg PO Q4H PRN 05/04/16 [Last Taken 06:48 650 MG] Aspirin [Aspirin 81mg (*)] 81 mg PO HS 05/04/16 [Last Taken 05/03/16] Ipratropium/Albuterol [Duoneb (*)] 3 ml IH Q6 PRN 05/04/16 [Last Taken Unknown] Pantoprazole Sodium [Protonix 40mg (*)] 40 mg PO BID 05/04/16 [Last Taken ] traMADol [Ultram 50 mg (*)] 50 mg PO Q6H PRN 05/04/16 [Last Taken 05/02/16] Amox Tr/K Clav (Augmentin) [Augmentin 500/125 MG TAB (*)] 500 mg PO MWF #0 tab 06/16/16 [Last Taken Unknown] Latin Dance Instructor Antibiotics: augmentin after HD through 06/24/16 Latin Dance Instructor Antibiotic Stop Date: 06/24/16 Discharge Medications: Refer to the Discharge Home Medication list for PRN reason. PICC Care - Routine: Yes - Orders Services needed: Registered Nurse, Physical Therapy, Occupational Therapy Wound Care Instructions: drain care with followup with Dr. Dunbar Additional: Will need HD MWF - Follow Up Care Current Providers and Referrals: Ly Sen MD [Primary Care Provider] -
--- NOTE | 2016-06-16 13:42 | SOAPPROG ---
SOAP Progress Note Assessment/Plan: Assessment/Plan 81yo M c duodenal perf s/p ex lap, repair and washout x2. Persistent leak - Diet tolerated. CHARLIE with persistent purulent output - J tube removed uneventfully - HD per nephrology, will be followed as outpatient when discharged - Likely to SNF tomorrow 05/06/16 13:11 05/07/16 12:00 05/07/16 12:01 05/08/16 12:18 05/09/16 09:10 05/10/16 09:26 05/13/16 13:09 05/14/16 11:20 05/15/16 11:09 05/16/16 10:43 05/17/16 11:28 05/18/16 15:47 05/20/16 11:01 05/21/16 16:44 05/24/16 11:44 05/25/16 10:13 05/27/16 16:19 05/28/16 08:50 05/31/16 13:32 06/01/16 14:44 06/03/16 14:06 06/14/16 10:33 06/15/16 14:43 06/16/16 13:41 Subjective: Anxious about leaving, but otherwise doing well. Tolerating diet Objective: Vital Signs Temp Pulse Resp BP Pulse Ox 36.4 C 101 H 14 141/96 H 93 06/16/16 08:00 06/16/16 08:00 06/16/16 08:00 06/16/16 08:00 06/16/16 08:00 Microbiology 05/20/16 04:05 Mycobacterial Smear (TROY) - Final Bronchial [place] - Bilateral Lobes Laboratory Results 06/15/16 06:00 06/16/16 06:20 06/15/16 06/16/16 06/17/16 05:59 05:59 05:59 Intake Total 340 660 Output Total 915 2060 Balance -575 -1400 PT 15.0 SEC (12.0-15.0) 05/24/16 05:06 INR 1.18 (0.83-1.16) H 05/24/16 05:06 ICD10 Worksheet Patient Problems: Problems Problem Status Onset Hypoxia Acute Pneumonia Acute
--- NOTE | 2016-06-16 14:05 | HOSPPROG ---
Hospitalist Progress Note Assessment/Plan: Mr Mcdaniel is a 81 yo M new to my care with recent complex hospital stay for ecoli bacteremia 2/2 choledocholithiasis and duodenal perforation s/p ERCP. He was admitted on May 04 with acute renal failure and peritonitis. # MILLA - 2/2 ATN- tunneled HD cath placed - receiving HD - continue HD per nephrology - continue sodium bicarb # polymicrobial Peritonitis from duodenal perforation/intra-abdominal abscess - persistent duodenal leak now s/p repair with omental patch / upper gi looks okay/ eating well - Plan to DC on Augmentin #tachycardia (resolved) #shortness of breath (stable) with resolved Acute hypoxic respiratory failure/ daptomycin pneumonitis #constipation -bowel protocol/no MOM #right thigh numbness/intermittent -no further complaints #insomnia -better/ no vital signs during the night # Anemia of chronic disease - multifactorial - epo - was given a unit of PRBC's yesterday with improvement #Lightheadedness -resolved # sepsis 2/2 intraabdominal source- resolved # Basilic vein superficial thrombosis. PICC removed, no systemic AC # Acute encephalopathy- resolved # Thrombocytopenia- - HIT panel neg - resolved # Drug rash- 2/2 levofloxacin -Levaquin is now listed as an allergy # Atrial fibrillation w/ RVR- -none further/ was treated w Diltazem gtt # Diet. TPN stopped on 06/11, eating well # Prophylaxis. High risk patient, heparin subcu # Code. Full code # Disposition- pending #Plan: plan to dc to [facility] 06/[address] Dunbar Pt is high risk Subjective: does not feel ready to dc today. tells me his is ill and he is worried about leaving the hospital. etienne drain continues to putout purulent fluid. no fevers or chills Objective: Vital Signs Temp Pulse Resp BP Pulse Ox 36.4 C 101 H 14 141/96 H 93 06/16/16 08:00 06/16/16 08:00 06/16/16 08:00 06/16/16 08:00 06/16/16 08:00 Microbiology 05/20/16 04:05 Mycobacterial Smear (TROY) - Final Bronchial [place] - Bilateral Lobes Laboratory Results 06/15/16 06:00 06/16/16 06:20 06/15/16 06/16/1617 05:59 05:59 05:59 Intake Total 340 660 Output Total 917 2060 Balance -575 -1400 PT 15.0 SEC (12.0-15.0) 05/24/16 05:06 INR 1.18 (0.83-1.16) H 05/24/16 05:06 - Physical Exam Constitutional: no apparent distress, appears nourished, not in pain Cardiovascular: regular rate and rhythym, no murmur, rub, or gallop Respiratory: no respiratory distress, no rales or rhonchi, clear to auscultation Gastrointestinal: normoactive bowel sounds, soft, non-tender abdomen, no palpable masses, No guarding (etienne drain in place draining purulent fluid), No rebound Neurologic: AAOx3, sensation intact bilaterally ICD10 Worksheet Patient Problems: Problems Problem Status Onset Hypoxia Acute Pneumonia Acute
[2016-06-16] MEDS ORDERED: NS 100 ML IV PRN (18:19)
[2016-06-16] MEDS: MELATONIN 3 MG TAB PO PRN (21:26)
[2016-06-16] MEDS: ACETAMINOPHEN 325 MG TAB PO PRN (21:27)
--- NOTE | 2016-06-16 22:33 | SOAPPROG ---
SOAP Progress Note Assessment/Plan: Assessment: 1. MILLA. Consistent with ATN. UOP decent, currently off lasix. Dialysis here tomorrow. will dialyze outpatient at [facility]. Need to confirm time prior to discharge. 2. Abdominal abscess. Continue broad spectrum abx, antifungals and drain. CT yesterday showed no leak. 3. Malnutrition. Taking PO. 4. Disposition. Plan to d/c to [facility] tomorrow. Plan: 05/12/16 09:17 05/14/16 13:52 05/14/16 13:53 05/15/16 13:51 05/16/16 14:28 05/16/16 14:29 05/26/16 08:15 05/26/16 08:17 06/16/16 22:31 06/16/16 22:31 06/16/16 22:33 06/16/16 22:33 Subjective: No new complaints. Dialyzed yesterday. Objective: Vital Signs Temp Pulse Resp BP Pulse Ox 36.7 C 96 18 138/89 H 99 06/16/16 21:45 06/16/16 21:45 06/16/16 21:45 06/16/16 21:45 06/16/16 21:45 Laboratory Results 06/15/16 06:00 06/16/16 06:20 06/15/16 06/16/16 06/17/16 05:59 05:59 05:59 Intake Total 340 660 Output Total 915 2060 205 Balance -575 -1400 -205 PT 15.0 SEC (12.0-15.0) 05/24/16 05:06 INR 1.18 (0.83-1.16) H 05/24/16 05:06 In chair, comfortable wm RRR, no m/g/r CTAB Abdom soft, nt 2+ pitting LE edema ICD10 Worksheet Patient Problems: Problems Problem Status Onset Hypoxia Acute Pneumonia Acute
[2016-06-17] MEDS: HEPARIN 5,000 UNIT/0.5 ML SYR SC SCH ×2 (05:56→13:27)
[2016-06-17 06:56] LABS: ALBUMIN 3.4 g/dL (3.5-5.0); ANION GAP 13 mEq/L (8-16); CALCIUM 8.9 mg/dL (8.5-10.4); CARBON DIOXIDE 25 mEq/l (22-31); CHLORIDE 103 mEq/L (97-110); CREATININE 3.9 mg/dL (0.7-1.3); GLOMERULAR FILTRATION RATE 15; GLUCOSE 84 mg/dL (70-100); POTASSIUM 3.8 mEq/L (3.5-5.2); SODIUM 141 mEq/L (134-144)
[2016-06-17 07:29] VITALS: BP 140/94; PULSE 89; RESP 16; TEMP 98.4; O2SAT 96
--- NOTE | 2016-06-17 07:47 | PDIAF ---
- Diagnosis Diagnosis: peritonitis Code Status: Full Code - Medication Management Discharge Medications: Medications to Continue on Transfer Acetaminophen [Tylenol 325mg (*)] 650 mg PO Q4H PRN 05/04/16 [Last Taken 06:48 650 MG] Aspirin [Aspirin 81mg (*)] 81 mg PO HS 05/04/16 [Last Taken 05/03/16] Ipratropium/Albuterol [Duoneb (*)] 3 ml IH Q6 PRN 05/04/16 [Last Taken Unknown] Pantoprazole Sodium [Protonix 40mg (*)] 40 mg PO BID 05/04/16 [Last Taken ] traMADol [Ultram 50 mg (*)] 50 mg PO Q6H PRN 05/04/16 [Last Taken 05/02/16] Amox Tr/K Clav (Augmentin) [Augmentin 500/125 MG TAB (*)] 500 mg PO MWF #0 tab 06/16/16 [Last Taken Unknown] Intermediate Antibiotics: augmentin 500/125mg PO daily after HD through 06/24/16 Scouring Train Operator Chief Antibiotic Stop Date: 06/29/16 Discharge Medications: Refer to the Discharge Home Medication list for PRN reason. PICC Care - Routine: Yes - Orders Services needed: Registered Nurse, Physical Therapy, Occupational Therapy Wound Care Instructions: drain care with followup with Dr. Dunbar Additional: Will need HD MWF - Follow Up Care Current Providers and Referrals: Maegan Tejada MD [Medical Doctor] - 06/29/16 12:00 pm Ly Sen MD [Primary Care Provider] -
--- NOTE | 2016-06-17 09:51 | SOAPPROG ---
SOAP Progress Note Assessment/Plan: Assessment: 1. MILLA Non oliguric. Has tunneled cath. HD today, then to be DC'd. He is scheduled for MWF HD as an acute at [facility]. I have communicated with unit and MD's. 2. GI Doing better. 3. DC I have reviewed plan with DC master planner. Subjective: Looks pretty good. Objective: Vital Signs Temp Pulse Resp BP Pulse Ox 36.9 C 89 16 140/94 H 96 06/17/16 07:28 06/17/16 07:28 06/17/16 07:28 06/17/16 07:28 06/17/16 07:28 Laboratory Results 06/15/16 06:00 06/17/16 06:05 06/16/16 06/17/16 06/18/16 05:59 05:59 05:59 Intake Total 660 Output Total 2059 Balance -1400 -205 PT 15.0 SEC (12.0-15.0) 05/24/16 05:06 INR 1.18 (0.83-1.16) H 05/24/16 05:06 Physical Exam - Physical Exam General Appearance: no apparent distress Neck: other (cath tunnel site ok) Cardiac/Chest: regular rate, rhythm Extremities: pedal edema (1+ B) Neuro/Psych: oriented x 3 ICD10 Worksheet Patient Problems: Problems Problem Status Onset Hypoxia Acute Pneumonia Acute
--- NOTE | 2016-06-17 12:47 | PDIAF ---
- Diagnosis Diagnosis: peritonitis Code Status: Full Code - Medication Management Discharge Medications: Medications to Continue on Transfer Acetaminophen [Tylenol 325mg (*)] 650 mg PO Q4H PRN 05/04/16 [Last Taken 06:48 650 MG] Aspirin [Aspirin 81mg (*)] 81 mg PO HS 05/04/16 [Last Taken 05/03/16] Ipratropium/Albuterol [Duoneb (*)] 3 ml IH Q6 PRN 05/04/16 [Last Taken Unknown] Pantoprazole Sodium [Protonix 40mg (*)] 40 mg PO BID 05/04/16 [Last Taken ] traMADol [Ultram 50 mg (*)] 50 mg PO Q6H PRN 05/04/16 [Last Taken 05/02/16] Amox Tr/K Clav (Augmentin) [Augmentin 500/125 MG TAB (*)] 500 mg PO MWF #0 tab 06/16/16 [Last Taken Unknown] Shelter Antibiotics: augmentin 500/125mg PO daily after HD through 06/24/16 Class A Lineman Antibiotic Stop Date: 06/29/16 Discharge Medications: Refer to the Discharge Home Medication list for PRN reason. PICC Care - Routine: Yes - Orders Services needed: Registered Nurse, Physical Therapy, Occupational Therapy Diet Recommendation: no restrictions on diet Diet Texture: Regular Texture Diet Wound Care Instructions: Empty Bulb drain twice a day and record outputs. Dr Dunbar to co-ordinate drain care and removal. Please call his office with questions or concerns. [phone] Additional: Will need HD MWF - Follow Up Care Current Providers and Referrals: Maegan Tejada MD [Medical Doctor] - 06/29/16 12:00 pm Ly Sen MD [Primary Care Provider] - Manjit Dunbar MD [Medical Doctor] - follow up in 1 week
--- NOTE | 2016-06-17 12:49 | SOAPPROG ---
SOAP Progress Note Assessment/Plan: Assessment/Plan 81yo M c duodenal perf s/p ex lap, repair and washout x2. Persistent leak - Continues to tolerate diet, appropriate bowel function - J tube removed, no issues - CHARLIE continues to drain small amts of purulent fluid, will cont this. To be emptied BID at SNF, will coordinate with them - OK for DC to SNF today. Follow up with me in 1 week. 05/06/16 13:11 05/07/16 12:00 05/07/16 12:01 05/08/16 12:18 05/09/16 09:10 05/10/16 09:26 05/13/16 13:09 05/14/16 11:20 05/15/16 11:09 05/16/16 10:43 05/17/16 11:28 05/18/16 15:47 05/20/16 11:01 05/21/16 16:44 05/24/16 11:44 05/25/16 10:13 05/27/16 16:19 05/28/16 08:50 05/31/16 13:32 06/01/16 14:44 06/03/16 14:06 06/14/16 10:33 06/15/16 14:43 06/16/16 13:41 06/17/16 12:48 Subjective: In good spirits Objective: Vital Signs Temp Pulse Resp BP Pulse Ox 36.9 C 89 16 140/94 H 96 06/17/16 07:28 06/17/16 07:28 06/17/16 07:28 06/17/16 07:28 06/17/16 07:28 Laboratory Results 06/15/16 06:00 06/17/16 06:05 06/16/16 06/17/16 06/18/16 05:59 05:59 05:59 Intake Total 660 Output Total 2059 Balance -1400 -205 PT 15.0 SEC (12.0-15.0) 05/24/16 05:06 INR 1.18 (0.83-1.16) H 05/24/16 05:06 ICD10 Worksheet Patient Problems: Problems Problem Status Onset Hypoxia Acute Pneumonia Acute
[2016-06-17] MEDS: EPOETIN ALFA 10,000 UNIT/ML VIAL SC SCH (13:26)
[2016-06-17] MEDS: SENNOSIDES/DOCUSATE SODIUM TAB PO SCH (13:27)
[2016-06-17] MEDS: PANTOPRAZOLE SODIUM 40 MG TAB PO SCH (13:27)
--- NOTE | 2016-06-17 13:40 | PDIAF ---
- Diagnosis Diagnosis: peritonitis Code Status: Full Code - Medication Management Discharge Medications: Medications to Continue on Transfer Acetaminophen [Tylenol 325mg (*)] 650 mg PO Q4H PRN 05/04/16 [Last Taken 06:48 650 MG] Aspirin [Aspirin 81mg (*)] 81 mg PO HS 05/04/16 [Last Taken 05/03/16] Ipratropium/Albuterol [Duoneb (*)] 3 ml IH Q6 PRN 05/04/16 [Last Taken Unknown] Pantoprazole Sodium [Protonix 40mg (*)] 40 mg PO BID 05/04/16 [Last Taken ] traMADol [Ultram 50 mg (*)] 50 mg PO Q6H PRN 05/04/16 [Last Taken 05/02/16] Amoxicillin/Clavulanate Pot [Augmentin 875 MG TAB (*)] 875 mg PO DAILY #0 tab [Last Taken Unknown] Intermediate Antibiotics: augmentin 500/125mg PO daily after HD through 06/24/16 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 PICC Care - Routine: Yes - Orders Services needed: Registered Nurse, Physical Therapy, Occupational Therapy Diet Recommendation: no restrictions on diet Diet Texture: Regular Texture Diet Wound Care Instructions: Empty Bulb drain twice a day and record outputs. Dr Dunbar to co-ordinate drain care and removal. Please call his office with questions or concerns. [phone] Additional: Will need MWF - Follow Up Care Current Providers and Referrals: Manjit Dunbar MD [Medical Doctor] - follow up in 1 week Maegan Tejada MD [Medical Doctor] - 06/29/16 12:00 pm Ly Sen MD [Primary Care Provider] -
--- NOTE | 2016-06-17 13:53 | PDIAF ---
- Diagnosis Diagnosis: peritonitis Code Status: Full Code - Medication Management Discharge Medications: Medications to Continue on Transfer Acetaminophen [Tylenol 325mg (*)] 650 mg PO Q4H PRN 05/04/16 [Last Taken 06:48 650 MG] Aspirin [Aspirin 81mg (*)] 81 mg PO HS 05/04/16 [Last Taken 05/03/16] Ipratropium/Albuterol [Duoneb (*)] 3 ml IH Q6 PRN 05/04/16 [Last Taken Unknown] Pantoprazole Sodium [Protonix 40mg (*)] 40 mg PO BID 05/04/16 [Last Taken ] traMADol [Ultram 50 mg (*)] 50 mg PO Q6H PRN 05/04/16 [Last Taken 05/02/16] Amox Tr/K Clav (Augmentin) [Augmentin 500/125 MG TAB (*)] 500 mg PO DAILY #0 tab 06/17/16 [Last Taken Unknown] Cnc Service Technician Antibiotics: augmentin 500/125mg PO daily after HD through 06/24/16 Cnc Service Technician Antibiotic Stop Date: 06/29/16 Discharge Medications: Refer to the Discharge Home Medication list for PRN reason. PICC Care - Routine: Yes - Orders Services needed: Registered Nurse, Physical Therapy, Occupational Therapy Diet Recommendation: no restrictions on diet Diet Texture: Regular Texture Diet Wound Care Instructions: Empty Bulb drain twice a day and record outputs. Dr Dunbar to co-ordinate drain care and removal. Please call his office with questions or concerns. [phone] Additional: Will need HD MWF - Follow Up Care Current Providers and Referrals: Manjit Dunbar MD [Medical Doctor] - follow up in 1 week Maegan Tejada MD [Medical Doctor] - 06/29/16 12:00 pm Ly Sen MD [Primary Care Provider] -
--- NOTE | 2016-06-17 14:41 | GDS ---
[f rep st] DISCHARGE SUMMARY DISCHARGE DIAGNOSES: 1. Acute kidney injury due to acute tubular necrosis requiring hemodialysis. 2. Polymicrobial peritonitis from duodenal perforation and intraabdominal abscess. 3. Resolved severe sepsis. 4. Anemia of chronic disease. 5. Resolved acute encephalopathy. 6. Multifactorial thrombocytopenia with negative heparin-induced thrombocytopenia panel. 7. Atrial fibrillation with rapid ventricular response. CONSULTANTS: Manjit Dunbar MD, general surgery. [facility]. [facility]. Pulmonary Critical Care, Dr. Ureña. Wound Care. HOSPITAL COURSE AND STAY BY PROBLEM: 1. Acute kidney injury thought to be due to ATN: The patient has been followed by Nephrology where he has been maintained on hemodialysis. At this time, the patient is being discharged to [facility] [place] with continued outpatient hemodialysis Tuesday, Tuesday and Tuesday. He is nonoliguric. 2. Duodenal perforations, status post exploratory laparotomy, complicated by persistent leak and po lymicrobial abscess: The patient has been followed by Surgery. He has finished an extended course of Unasyn. On day of discharge, he was seen by Dr. Tejada who has recommended renal dosing of Augme ntin 500/125 mg daily to be given in the evenings, which should be continued through June 29, 2016. He continues to have a CHARLIE drain in place that will be managed by Dr. Dunbar. The bulb will ne ed to be drained twice daily and the outputs will need to be recorded. PHYSICAL EXAMINATION ON DISCHARGE: VITAL SIGNS: On day of discharge, blood pressure 140/94, pulse of 89, respiratory rate 16, O2 saturation 96% on room air. Temperature afebrile. GENERAL: No acute distress. HEART: S1, S2. LUNGS: Clear. ABDOMEN: Soft. Normoactive bowel sounds. CHARLIE drain is in place draining purulent material. PROCEDURES DONE THIS HOSPITAL STAY: Ultrasound-guided right internal jugular temporary dialysis cat heter placement done by Dr. Dunbar on 05/07/2016. PICC line insertion on 05/08/2016. Bronchosc opy done by Dr. Howard on 05/20/2016. Tunnel dialysis catheter placement done into the right internal jugular vein, done by Dr. Dunbar on 05/27/2016. CT-guided abdominal abscess drainage done 04/15. DISCHARGE MEDICATIONS: Please refer to discharge medication reconciliation in [facility] for details. DISCHARGE INSTRUCTIONS: The patient will be discharged to [facility] [place] for further rehabilitation wher e he will need to continue with hemodialysis Mondays, Wednesdays, and Fridays. Once again, he shoul d be continued on oral Augmentin at a dose of 500 mg daily through 06/29/2016. Greater than 30 minutes were spent on the discharge of this patient. /[id number]/MODL
[2016-06-17] MEDS ORDERED: AMOX/CLAVULANATE 500/125 MG TAB PO SCH (18:00)
== END 2016-06-17 15:31 | DRG 682 ==
LOC: EDSTATUS 08:45 → FIMAGING 09:44 → F1N 13:59 → OBSVTOIN 15:36 → F2N 05-07 14:46 → F3N 05-26 16:36 → UNDODISIN 05-29 09:51 → F2N 05-29 12:17 → F3E 06-01 13:01
PROVIDERS: ADMIT Student in an Organized Health Care Education/Training Program; ATTEND Student in an Organized Health Care Education/Training Program
DX: N17.0 Acute kidney failure with tubular necrosis (principal); K65.1 Peritoneal abscess; G92 Toxic encephalopathy; T82.868A Thrombosis due to vascular prosthetic devices, implants and grafts, initial encounter; J90 Pleural effusion, not elsewhere classified; D63.8 Anemia in other chronic diseases classified elsewhere; D69.59 Other secondary thrombocytopenia; I48.91 Unspecified atrial fibrillation; N40.1 Benign prostatic hyperplasia with lower urinary tract symptoms; R33.9 Retention of urine, unspecified; N18.3 Chronic kidney disease, stage 3 (moderate); L27.0 Generalized skin eruption due to drugs and medicaments taken internally; T36.8X5A Adverse effect of other systemic antibiotics, initial encounter; Z86.718 Personal history of other venous thrombosis and embolism; Z79.2 Long term (current) use of antibiotics
CPT/HCPCS: 83010-90; 86022-90; 86255-90; 86334-90; 86704-90; 87350-90; 97110-GO; 97110-GP; 97116-GP; 97163-GP; 97166-GO; 97168-GO; 97530-GO; 97530-GP; 97532-GO; 97535-GO; C1750; C1751; G0472; G8978-GP-CJ; G8978-GP-CK; G8978-GP-CL; G8978-GP-CM; G8979-GP-CI; G8979-GP-CJ; G8979-GP-CK; G8987-GO-CJ; G8987-GO-CK; G8987-GO-CL; G8987-GO-CM; G8987-GO-CN; G8988-GO-CI; G8988-GO-CJ; G8988-GO-CL; J0295; J0461; J0692; J0878; J0885; J1170; J1450; J1642; J1644; J1815; J1956; J2060; J2248; J2250; J2310; J2405; J2543; J2704; J2765; J2997; J3010; J3475; P9016; P9021; P9047

== ENCOUNTER → 2016-07-06 | Outpatient (CLI) | payer OTHER, BC | LOC: FIMAGING 08:30 | PROVIDERS: ATTEND Internal Medicine Infectious Disease | DX: Z09 Encounter for follow-up examination after completed treatment for conditions other than malignant neoplasm (principal) ==

== ENCOUNTER → 2016-08-28 | Outpatient (CLI) | payer OTHER, BC | LOC: FIMAGING 14:24 | PROVIDERS: ATTEND Psychiatry & Neurology Neurology | DX: R29.898 Other symptoms and signs involving the musculoskeletal system (principal); M43.02 Spondylolysis, cervical region; M48.02 Spinal stenosis, cervical region; Z98.1 Arthrodesis status ==

== ENCOUNTER → 2016-08-31 | Outpatient (CLI) | payer OTHER, BC | LOC: BMCIMAGING 13:21 | PROVIDERS: ATTEND Internal Medicine | DX: R59.0 Localized enlarged lymph nodes (principal) ==

== ENCOUNTER 2016-09-29 08:03 | Day surgery (SDC) | payer OTHER, BC ==
[2016-09-29] MEDS ORDERED: NS 1,000 ML IV ONE (08:28)
[2016-09-29] MEDS ORDERED: LIDOCAINE 1% 2 ML INJ ID PRN (08:54)
[2016-09-29] MEDS ORDERED: LIDOCAINE 1% 2 ML INJ ONE (08:59)
[2016-09-29] MEDS ORDERED: GLUCAGON,HUMAN RECOMBINANT 1 MG VIAL ONE (09:09)
[2016-09-29] MEDS ORDERED: IOTHALAMATE MEG (CONRAY) 50 ML VIAL IV ONE (09:09)
--- NOTE | 2016-09-29 09:39 | PDANEPAE ---
ANE History of Present Illness ercp ANE Past Medical History - Cardiovascular History Hx Hypertension: No Hx Arrhythmias: No Hx Chest Pain: No Hx Coronary Artery / Peripheral Vascular Disease: No Hx CHF / Valvular Disease: No Hx Palpitations: No - Pulmonary History Hx COPD: No Hx Asthma/Reactive Airway Disease: No Hx Recent Upper Respiratory Infection: No Hx Oxygen in Use at Home: No Hx Sleep Apnea: No Sleep Apnea Screening Result - Last Documented: Negative - Neurologic History Hx Cerebrovascular Accident: No Hx Seizures: No Hx Dementia: No - Endocrine History Hx Diabetes: No - Renal History Hx Renal Disorders: Yes Renal History Comment: RENAL INSUFFICIENCY ACUTE. DIALYSIS - CURRENTLY OFF DIALYSIS -LD 09/13/16 - Liver History Hx Hepatic Disorders: Yes Hepatic History Comment: CHOLECYSTECTOMY - Neurological & Psychiatric Hx Hx Neurological and Psychiatric Disorders: No - Cancer History Hx Cancer: No - Congenital Disorder History Hx Congenital Disorders: No - GI History Hx Gastrointestinal Disorders: Yes Gastrointestinal History Comment: PAST ACID REFLUX - Other Health History Other Health History: NEG - Chronic Pain History Chronic Pain: No - Surgical History Prior Surgeries: CHOLECYSTECOMY. TKA R. EGD W/BX. ERCP. EXP LAPAROTOMY X2. INSERTION NG TUBE. JEJUNOSTOMY ANE Review of Systems - Exercise capacity METS (RN): 4 METS ANE Patient History - Allergies Allergies/Adverse Reactions: daptomycin Allergy (Verified 05/23/16 11:46) levofloxacin [From Levaquin] Allergy (Verified 05/23/16 11:46) morphine Allergy (Verified 03/12/16 19:16) - Home Medications Home Medications: Acetaminophen [Tylenol 325mg (*)] 650 mg PO Q4H PRN 05/04/16 [Last Taken 21:30] Aspirin [Aspirin 81mg (*)] 81 mg PO HS 05/04/16 [Last Taken 09/22/16] Pantoprazole Sodium [Protonix 40mg (*)] 40 mg PO BID 05/04/16 [Last Taken ] Multivitamin 09/16/16 [Last Taken 09/08/16] - NPO status NPO Since - Liquids (Date): 09/28/16 NPO Since - Liquids (Time): 18:30 NPO Since - Solids (Date): 09/28/16 NPO Since - Solids (Time): 18:30 - Anes Hx Anes Hx: no prior problems - Smoking Hx Smoking Status: Former smoker - Family Anes Hx Family Hx Anesthesia Complications: NEG ANE Labs/Vital Signs - Vital Signs Blood Pressure: 131/81 Heart Rate: 75 Respiratory Rate: 15 O2 Sat (%): 100 Height: 175.26 cm Weight: 74.389 kg ANE Physical Exam - Airway Mallampati Score: Class 2 Mouth exam: normal dental/mouth exam - Pulmonary Pulmonary: no respiratory distress - Cardiovascular Cardiovascular: regular rate and rhythym - ASA Status ASA Status: II ANE Anesthesia Plan Anesthesia Plan: general endotracheal anesthesia
[2016-09-29] MEDS ORDERED: ROCURONIUM 50 MG/5 ML VIAL ONE (09:42)
[2016-09-29] MEDS ORDERED: LIDOCAINE 2% 5 ML SDV ONE (09:43)
[2016-09-29] MEDS ORDERED: fentaNYL 100 MCG/2 ML INJ ONE (09:43)
[2016-09-29] MEDS ORDERED: PROPOFOL 200 MG/20 ML VIAL ONE (09:43)
--- NOTE | 2016-09-29 09:53 | PDGENHP ---
History & Physical Chief Complaint: Hx of bile duct stones, indwelling plastic biliary stent History of Present Illness: Indwelling plastic biliary stent, possible CBC stones Relevant Physical Exam: GEN: NAD. Cardiac: RRR. Lungs: CTA B. Abd: Soft, nt, nd
[2016-09-29] MEDS ORDERED: SUGAMMADEX SODIUM 200 MG/2 ML VIAL IVP ONE (10:16)
[2016-09-29] MEDS ORDERED: LR 500 ML IV PRN (11:27)
[2016-09-29] MEDS ORDERED: MEPERIDINE 25 MG/ML SYR IVP PRN (11:27)
[2016-09-29] MEDS ORDERED: ONDANSETRON 4 MG/2 ML VIAL IVP PRN (11:27)
[2016-09-29] MEDS ORDERED: NALOXONE HCL 0.4 MG/ML INJ IVP PRN (11:27)
--- NOTE | 2016-09-29 11:27 | POSTANESTH ---
Post Anesthetic Evaluation Cardiovascular Status: Normal, Stable Respiratory Status: Normal, Stable Level of Consciousness/Mental Status: Can Participate in Eval Pain Control: Adequate, Prn Tx Ordered Nausea/Vomiting Control: Adequate, Prn Tx Ordered Complications Possibly Related to Anesthesia: None Noted
--- NOTE | 2016-09-29 11:33 | POSTOPPROG ---
Post Op Note Date of Operation: 09/29/16 Surgeon: Shakir Beyer Pre-op Diagnosis: Choledocholithiasis, indwelling plastic biliary stents Post-op Diagnosis: Same Indication: Removal of indwelling plastic biliary stents and removal of stones Procedure: ERCP with stent removal Findings: Two indwelling plastic biliary stents s/p removal Inf/Abcess present in the surg proc area at time of surgery?: No
[2016-09-29 11:57] VITALS: TEMP 96.1
[2016-09-29 12:42] VITALS: O2SAT 99
[2016-09-29 12:50] VITALS: BP 141/80; PULSE 72; RESP 13
--- NOTE | 2016-09-30 08:18 | GPN ---
[f rep st] PROCEDURE NOTE PREOPERATIVE DIAGNOSIS: Choledocholithiasis with indwelling plastic biliary stent. POSTOPERATIVE DIAGNOSIS: Status post removal of the indwelling plastic biliary stents with endoscop ic retrograde cholangiopancreatography. No stones found. ANESTHESIA: General anesthesia. Ceftriaxone 1 g was given during the procedure as well. INDICATION: Darren Zhou is a 81-year-old male with history of gallstone pancreatitis. Underwent ERCP and stone removal, as well as stent placement complicated by duodenal versus bile duct post-pr ocedure leak resulting in retroperitoneal abscesses and prolonged hospital stay. He is here today i n followup for removal of his plastic biliary stents and removal of any remaining stones. The risks and the benefits of the procedure were discussed with the patient and consent obtained. Risks incl ude, but not limited to, bleeding, perforation, the risks related to sedation and pancreatitis. The patient is ASA class 3. DESCRIPTION OF PROCEDURE: The duodenoscope was inserted into the esophagus, into the stomach and se cond portion of the duodenum. The 2 indwelling plastic biliary stents were visualized. Initially t he smaller 7-[place]e stent was removed using a rat-tooth catheter. The second stent was then removed using a snare. The smaller stone was removed through the scope and the larger 10-[place]e stent was removed by removing the entire scope and reinserting the scope. The ampulla appeared normal. The h ydrogen catheter was then used to selectively cannulate the bile duct. The wire was inserted into t he common hepatic duct above the visualized cystic duct clips. The wire could not easily be passed into the intrahepatic biliary tree. Contrast dye was injected. There may have been a small filling of the intrahepatic biliary tree but not obviously filling the entire tree. I then inserted a 9 to 12 mm stone extraction balloon and inflated the balloon. Again contrast was injected. Again there was no obvious filling of the intrahepatic biliary tree. Multiple sweeps were performed. There wa s no evidence of retained bile duct stones. The procedure was then terminated. IMPRESSION: 1. Status post removal of the indwelling plastic biliary stents. 2. Unclear anatomy near the bifurcation of the intrahepatic biliary tree as it was not obvious that the intrahepatic biliary tree was filling with contrast. This area was not aggressively probed, marion pizano, given his history and the fact that he appeared draining well. 3. Recommend repeat MRCP in 2 months to ensure that there are no more proximal stones. Thank you for allowing me to participate in the care of patient. Please do not hesitate to call ismael roberts questions. /[id number]/[id number]
== END 2016-09-29 13:30 | disposition home or self-care (01) ==
LOC: FSGY 08:03
PROVIDERS: ATTEND Internal Medicine Gastroenterology
PROC: BF111ZZ Fluoroscopy of Biliary and Pancreatic Ducts using Low Osmolar Contrast (ICD-10-PCS; principal; 2016-09-29 09:30)
PROC: 0FC98ZZ Extirpation of Matter from Common Bile Duct, Via Natural or Artificial Opening Endoscopic (ICD-10-PCS; principal; 2016-09-29 09:30)
DX: K80.50 Calculus of bile duct without cholangitis or cholecystitis without obstruction (principal)
CPT/HCPCS: J0696; J1610; J2704; J3010; Q9961

== ENCOUNTER → 2016-12-11 | Outpatient (CLI) | payer OTHER, BC | LOC: FIMAGING 08:11 | PROVIDERS: ATTEND Internal Medicine Gastroenterology | DX: K80.50 Calculus of bile duct without cholangitis or cholecystitis without obstruction (principal); K76.89 Other specified diseases of liver ==